=== PATIENT | male | born 1970 | race Caucasian/White ===

== ENCOUNTER 2018-12-05 19:19 | Inpatient (IN) ==
[2018-12-05] MEDS ORDERED: LORazepam 1 MG/2 ML VIAL IV STA (19:57)
[2018-12-05] MEDS ORDERED: MULTI-VITAMIN INFUSION 10 ML, THIAMINE HCL 100 MG, FOLIC ACID 1 MG in SODIUM CHLORIDE 0... IV SCH (20:00)
--- NOTE | 2018-12-05 20:27 | XRay Report ---
XR chest 1V portable CLINICAL HISTORY: 48 years-old Male presenting with weakness. TECHNIQUE: Portable upright AP view of the chest was obtained. COMPARISON: 11/29/2010. FINDINGS: Cardiomediastinal silhouette normal. No focal opacity. No large effusion or pneumothorax. Osseous str uctures normal. Upper abdomen normal. IMPRESSION: 1. No acute cardiopulmonary disease. Electronically signed by: Kyle Marte M.D. 12/05/2018 8:26 PM
[2018-12-05 20:28] LABS: Prothrombin Time 10.3 Seconds (9.0-12.0)
[2018-12-05 20:34] LABS: Hematocrit (blood only) 43.3 % (42-52); Hemoglobin 15.5 g/dL (14.0-18.0); Immature Granulocytes # (auto) 0.03 K/uL (0.00-0.02); Immature Granulocytes % (auto) 0.5 %; Lymphocytes # (auto) 0.16 K/uL (1.2-3.4); Lymphocytes % (auto) 2.8 %; Mean Corpuscular Hemoglobin 37.3 pg (25-34); Mean Corpuscular Hgb Conc 35.8 g/dL (32-36); Mean Corpuscular Volume 104.1 fL (80-100); Mean Platelet Volume 9.4 fL (7.4-10.4); Monocytes # (auto) 0.51 K/uL (0.11-0.59); Neutrophils # (auto) 4.97 K/uL (1.4-6.5); Neutrophils % (auto) 87.7 %; Platelet Count 137 K/uL (130-400); RDW Coefficient of Variation 13.1 % (11.5-14.5); RDW Standard Deviation 49.8 fL (36.4-46.3); Red Blood Count 4.16 M/uL (4.7-6.1); White Blood Count 5.67 K/uL (4.8-10.8)
[2018-12-05 20:38] LABS: Alanine Aminotransferase 70 U/L (12-78); Aspartate Aminotransferase 69 U/L (15-37); BUN Creatinine Ratio 18.7 (10-20); Blood Urea Nitrogen 18 mg/dl (7-18); Calcium 8.4 mg/dl (8.5-10.1); Carbon Dioxide 11 mmol/L (21-32); Chloride 92 mmol/L (98-107); Est GFR (African American) 109.9; Est GFR (Non-African American) 94.8; Glucose 188 mg/dl (70-99); Magnesium 2.1 mg/dl (1.8-2.4); Potassium 4.2 mmol/L (3.5-5.1); Sodium 127 mmol/L (136-145)
[2018-12-05 20:48] LABS: Albumin Globulin Ratio 0.9 (0.9-2); Alkaline Phosphatase 65 U/L (45-117); Bilirubin,Total 0.6 mg/dl (0.2-1); Creatine Kinase 200 U/L (39-308); Globulin 4.6 gm/dl (2.5-4.0); Thyroid Stimulating Hormone 0.397 uIu/ml (0.300-4.500); Total Protein 8.6 gm/dl (6.4-8.2); Troponin I < 0.015 ng/ml (0-0.045)
[2018-12-05] MEDS ORDERED: MoRPHine SULFATE 2 MG/ML CARP IV STA (21:20)
[2018-12-05] MEDS ORDERED: D5W AND NSS 1,000 ML IV SCH (21:30)
--- NOTE | 2018-12-05 21:34 | Emergency Department Note ---
Entered by Briseyda Hunter acting as a scribe for Christiano Rojo DO History of Present Illness General Chief complaint: Chest Pain Stated complaint: CHEST PAIN, SOB, LEGS AREN'T WORKING, HICCUPS Time Seen by Provider: 12/05/18 19:50 Source: patient History of Present Illness Onset (ago): day(s) 3 Location: chest Pain Consistency: + other (Worsening) Maximum Pain Intensity: 7 Quality: + other (Pressure) Associated symptoms: + chest pain, + loss of appetite, + shortness of breath and + other (Off balance, hiccups, alcoholic); no nausea/vomiting The patient is a 48 year old male presenting to the Emergency Department complaining of worsening chest pain starting 3 days ago. The patient reports that he has chest pain and is short of breath. He describes his pain as pressure in his chest. He explains that he is experiencing acid reflux and has the hiccups. He notes that his legs arent functioning properly and that he is off balance. He adds that he has not eaten for the past 4 days and has lost his appetite. The patient reports that he is a chronic alcoholic. He states that he last drank about of a bottle of vodka [employer]. He explains that he lost his job 5 days ago and has been drinking in a motel ever since. He notes that he sees Dr. Dominguez [facility] PCP. He denies nausea and vomiting. Home Medications Home Medications Medication Instructions Recorded Confirmed Type ibuprofen 800 mg PO Q8H PRN 01/05/18 12/05/18 History Allergies Allergy/AdvReac Type Severity Reaction Status Date / Time No Known Allergies Allergy Verified 12/05/18 20:20 Past Med/Surg History Medical History Chronic alcohol use Family History Other Family history non-contributory Social History Preferred Language: Singaporean Feels Safe at Home: Yes Smoking Status: Current every day smoker Review of Systems See HPI for pertinent positives & negatives. and A total of 10 systems reviewed and were otherwise negative Physical Exam Vital Signs Vital Signs - 24 hr 12/05/18 19:21 12/05/18 19:39 12/05/18 20:01 Temperature 36.8 C Temperature Source Oral Sepsis Recent Fever Within 48 Hours No Sepsis New/Unexplained Change in Mental Status No Sepsis Action Taken by Nursing No Action Required Pulse Rate 129 H 129 H Pulse Rate from SpO2 Sensor Pulse Rhythm Regular Respiratory Rate 20 20 Blood Pressure 141/88 H Blood Pressure Mean 105 Pulse Oximetry 97 97 Oxygen Delivery Method Room Air Room Air Room Air 12/05/18 20:13 12/05/18 20:30 12/05/18 21:00 Temperature Temperature Source Sepsis Recent Fever Within 48 Hours Sepsis New/Unexplained Change in Mental Status Sepsis Action Taken by Nursing Pulse Rate 115 H 118 H 122 H Pulse Rate from SpO2 Sensor 115 H 118 H 121 H Pulse Rhythm Respiratory Rate 26 H 23 19 Blood Pressure 146/108 H 169/107 H 145/102 H Blood Pressure Mean 120 127 116 Pulse Oximetry 100 100 99 Oxygen Delivery Method Room Air Room Air Room Air CONSTITUTIONAL/VITAL SIGNS: Reviewed / noted above. GENERAL: Smells of ketones. INTEGUMENTARY: Warm, dry, and [place]. HEAD: Normocephalic. EYES: without scleral icterus or trauma. ENT/OROPHARYNX: clear and moist. LYMPHADENOPATHY/NECK: Is supple without lymphadenopathy or meningismus. RESPIRATORY: Lungs clear and equal. CARDIOVASCULAR: Tachycardia rate and regular rhythm. GI/ABDOMEN: Soft and nontender. No organomegaly or pulsatile mass. No rebound or guarding. Normal bowel sounds. EXTREMITIES: Warm and well perfused. BACK: No CVA tenderness. NEUROLOGICAL: Intact without focal deficits. PSYCHIATRIC: normal affect. MUSCULOSKELETAL: Normally developed with good muscle tone. Course 1950: The patient was evaluated in room [facility], and a complete history and physical examination were performed. 2121: I discussed the patient's case with Dr. Andrew LEMUS hospitalist. She will evaluate the patient for further management. 2124: I updated the patient at this time. Consultations Consultation #1: I discussed the patient's case with Dr. Andrew LEMUS hospitalist. She will evaluate the patient for further management. Time: 21:22 Administered Medications Discontinued Medications Lorazepam (Ativan) 1 mg in 2 mls @ 2 mls/min IV NOW STA Stop: 12/05/18 19:58 Last Admin: 12/05/18 20:31 Dose: 2 mls/min Documented by: [id number] Multivitamins 10 ml/ Thiamine HCl 100 mg/ Folic Acid 1 mg/Sodium Chloride 1,011.2 mls @ 1,011.2 mls/hr IV .Q1H SAMMY Stop: 12/05/18 20:59 Last Infusion: 12/05/18 21:18 Dose: 0 mls/hr Documented by: [id number] Admin: 12/05/18 20:17 Dose: 1,011.2 mls/hr Documented by: [id number] Medical Decision Making Differential Diagnosis The differential was considered includes acute myocardial infarction, acute coronary syndrome, myocarditis, pericarditis, pericardial effusions /tamponad, esophageal perforation, thoracic aortic dissection, pulmonary embolism, pneumonia, pneumothorax, pancreatitis, shingles, acute cholecystitis, perforated abdominal viscus. Medical Records Attestation: I reviewed the patient's medical records. Home Medications Current Medication List: was personally reviewed by me Laboratory Data Attestation: I reviewed the patient's lab results. Result diagrams: 12/05/18 20:12 12/05/18 20:12 Lab Results 12/05/18 12/05/18 12/05/18 Range/Units 19:34 20:12 20:12 WBC (4.8-10.8) K/uL RBC (4.7-6.1) M/uL Hgb (14.0-18.0) g/dL Hct (42-52) % MCV (80-100) fL MCH (25-34) pg MCHC (32-36) g/dL RDW Std Deviation (36.4-46.3) fL RDW Coeff of Arturo (11.5-14.5) % Plt Count (130-400) K/uL MPV (7.4-10.4) fL Immature Gran % (Auto) % Neut % (Auto) % Lymph % (Auto) % Hall % (Auto) % Eos % (Auto) % Baso % (Auto) % Immature Gran # (Auto) (0.00-0.02) K/uL Neut # (Auto) (1.4-6.5) K/uL Lymph # (Auto) (1.2-3.4) K/uL [place] # (Auto) (0.11-0.59) K/uL Eos # (Auto) (0-0.5) K/uL Baso # (Auto) (0-0.2) K/uL PT 10.3 (9.0-12.0) Seconds INR 1.0 (0.9-1.1) Sodium (136-145) mmol/L Potassium (3.5-5.1) mmol/L Chloride (98-107) mmol/L Carbon Dioxide (21-32) mmol/L Anion Gap (3-11) BUN (7-18) mg/dl Creatinine (0.6-1.4) mg/dl Est Cr Clr Drug Dosing Est GFR ( Amer) Est GFR (Non-Af Amer) BUN/Creatinine Ratio (10-20) Glucose (70-99) mg/dl POC Glucose 201 H (70-99) Lactate 4.5 H* (0.4-2.0) mmol/L Calcium (8.5-10.1) mg/dl Phosphorus (2.5-4.9) mg/dl Magnesium (1.8-2.4) mg/dl Total Bilirubin (0.2-1) mg/dl AST (15-37) U/L ALT (12-78) U/L Alkaline Phosphatase (45-117) U/L Total Creatine Kinase (39-308) U/L Troponin I (0-0.045) ng/ml Total Protein (6.4-8.2) gm/dl Albumin (3.4-5.0) gm/dl Globulin (2.5-4.0) gm/dl Albumin/Globulin Ratio (0.9-2) TSH (0.300-4.500) uIu/ml 12/05/18 12/05/18 Range/Units 20:12 20:12 WBC 5.67 (4.8-10.8) K/uL RBC 4.16 L (4.7-6.1) M/uL Hgb 15.5 (14.0-18.0) g/dL Hct 43.3 (42-52) % MCV 104.1 H (80-100) fL MCH 37.3 H (25-34) pg MCHC 35.8 (32-36) g/dL RDW Std Deviation 49.8 H (36.4-46.3) fL RDW Coeff of Arturo 13.1 (11.5-14.5) % Plt Count 137 (130-400) K/uL MPV 9.4 (7.4-10.4) fL Immature Gran % (Auto) 0.5 % Neut % (Auto) 87.7 % Lymph % (Auto) 2.8 % [place] % (Auto) 9.0 % Eos % (Auto) 0.0 % Baso % (Auto) 0.0 % Immature Gran # (Auto) 0.03 H (0.00-0.02) K/uL Neut # (Auto) 4.97 (1.4-6.5) K/uL Lymph # (Auto) 0.16 L (1.2-3.4) K/uL [place] # (Auto) 0.51 (0.11-0.59) K/uL Eos # (Auto) 0.00 (0-0.5) K/uL Baso # (Auto) 0.00 (0-0.2) K/uL PT (9.0-12.0) Seconds INR (0.9-1.1) Sodium 127 L (136-145) mmol/L Potassium 4.2 (3.5-5.1) mmol/L Chloride 92 L (98-107) mmol/L Carbon Dioxide 11 L (21-32) mmol/L Anion Gap 24.0 H (3-11) BUN 18 (7-18) mg/dl Creatinine 0.94 (0.6-1.4) mg/dl Est Cr Clr Drug Dosing Not Reportable Est GFR ( Amer) 109.9 Est GFR (Non-Af Amer) 94.8 BUN/Creatinine Ratio 18.7 (10-20) Glucose 188 H (70-99) mg/dl POC Glucose (70-99) Lactate (0.4-2.0) mmol/L Calcium 8.4 L (8.5-10.1) mg/dl Phosphorus 2.0 L (2.5-4.9) mg/dl Magnesium 2.1 (1.8-2.4) mg/dl Total Bilirubin 0.6 (0.2-1) mg/dl AST 69 H (15-37) U/L ALT 70 (12-78) U/L Alkaline Phosphatase 65 (45-117) U/L Total Creatine Kinase 200 (39-308) U/L Troponin I < 0.015 (0-0.045) ng/ml Total Protein 8.6 H (6.4-8.2) gm/dl Albumin 4.0 (3.4-5.0) gm/dl Globulin 4.6 H (2.5-4.0) gm/dl Albumin/Globulin Ratio 0.9 (0.9-2) TSH 0.397 (0.300-4.500) uIu/ml Imaging Data Radiologist's Impression: Radiology results as stated below per my review and the radiologist's interpretation: XR chest 1V portable CLINICAL HISTORY: 48 years-old Male presenting with weakness. TECHNIQUE: Portable upright AP view of the chest was obtained. COMPARISON: 11/29/2010. FINDINGS: Cardiomediastinal silhouette normal. No focal opacity. No large effusion or pneumothorax. Osseous structures normal. Upper abdomen normal. IMPRESSION: 1. No acute cardiopulmonary disease. Electronically signed by: Kyle Marte M.D. 12/05/2018 8:26 PM ECG Data Attestation: I personally reviewed and interpreted this ECG as follows: Indication: chest pain Rate (beats per minute): 120 Rhythm: sinus tachycardia Findings: no ST elevation and no ectopy Blood Pressure Blood Pressure Findings: Elevated blood pressure Blood Pressure Disposition: further management by hospitalist [id number] Narrative This is a 48-year-old male who presents to the ED with a chief complaint of carmen rtness of breath and hiccups as well as weakness in his legs. He also states that he has not been eating for the past 3 to 4 days. He has this been drinking alcohol. He states that he lost his job on Sunday. His last alcoholic beverage was vodka about a fourth of a bottle this afternoon. The patient states that he is a chronic alcoholic. His physical exam reveals a smell of ketones about the patient. He also has tachycardia on my exam. Chest x-ray was clear. CBC is unremarkable. The sodium is 127, anion gap is 24. Glucose is 188. Lactic acid is 4.5. Troponin was negative. Phosphorus is 2.0. EKG shows a sinus tach at a rate of 120. His symptoms are consistent with alcoholic ketoacidosis. The patient was treated with a banana bag 1 L with thiamine and folate IV. He was also started on D5 normal saline at 80 cc/h. I spoke with the hospitalist, who will see the patient for further evaluation and care. Impression & Plan Alcoholic ketoacidosis, Hyponatremia, Hypophosphatemia, Lactic acidosis Discharge Plan Visit Data Chief Complaint: Chest Pain Stated Complaint: CHEST PAIN, SOB, LEGS AREN'T WORKING, HICCUPS ED Provider: Christiano Rojo Discharge Problem: Alcoholic ketoacidosis, Hyponatremia, Hypophosphatemia, Lactic acidosis Patient Disposition: Being Evaluated by Hospitalist Forms Stand Alone Forms: Call Back Authorization, My [facility] Prescriptions Prescriptions: No Action ibuprofen 200 mg Tablet 800 mg PO Q8H PRN (Reason: Pain) RF: 0 Referrals Referrals: Barry Camacho [Primary Care Provider] - The scribe's documentation has been prepared under my direction and personally reviewed by me in its entirety. I confirm that the note above accurately reflects all work, treatment, procedures, and medical decision making performed by me.
--- NOTE | 2018-12-05 22:40 | History & Physical Report ---
Date of Service December 05, 2018 Assessment & Plan (1) Alcoholic ketoacidosis: Patient with anion gap metabolic acidosis. Serum bicarb = 11, lactate = 4.5. Blood pressure is stable. Patient does not appear to be infected/septic. Most likely secondary to alcohol ketoacidosis. -Admit to PCU -Banana bag administered in ER. Will continue IV fluid hydration with normal saline solution -Repeat lactate at midnight to assess trend -Encourage alcohol cessation Present on Admission?: Yes (2) Hyponatremia: Patient with moderate hyponatremia. Sodium = 127. Chloride = 92. Most likely secondary to low solute intake as patient reports not eating and drinking heavy amount of alcohol. -Check serum and urine osmolality -Normal saline solution at 125 mL/h -BMP every 8 hours. Cautious correction of sodium. Goal correction of no more than 10 mmol/L over 24 hours to avoid osmotic demyelination. Present on Admission?: Yes (3) Hypophosphatemia: Most likely secondary to low solute intake -Potassium phosphate 15 mmol IV x1 -Repeat phosphorus level in the morning Present on Admission?: Yes (4) Chronic alcohol use: Patient with long-standing history of heavy alcohol use. History of seizures and withdrawal. Presently with alcohol level of 243.8 with last drink being earlier this evening. He is at high risk for withdrawal -Admit to PCU with CIWA protocol -Seizure precautions -Gabapentin per protocol -Daily folic acid and high-dose thiamine, see below Present on Admission?: Yes (5) Left leg weakness: Patient with complaint of gait disturbance, specifically left weakness of the left lower extremity. He has had this in the past associated with heavy alcohol use. 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 Wernicke-Korsakoff? Patient with no ocular complaints or nystagmus. -Will administer high-dose thiamine 500 mg IV 3 times daily -PT and OT assessment -Obtain records from neurology -If symptoms do not improve with thiamine would consider MRI of the L-spine, possible neuro consult Present on Admission?: Yes (6) Hyperglycemia: Glucose = 188. Patient with no prior history of diabetes -Check hemoglobin A1c with a.m. labs f/E/N -normal saline solution at 125 mL/h, BMP every 8 hours to assess sodium and anion gap metabolic acidosis, regular diet as tolerated Prophylaxis-Lovenox for DVT. Will initiate Protonix 40 mg p.o. daily for complaint of heartburn Code-full per discussion with patient Disposition-admission to PCU Present on Admission?: Yes History of Present Illness Chief Complaint: Alcohol abuse, ataxia, weakness Primary Care Provider: Barry Camacho Uday Eastman is a 48-year-old male with history of alcohol abuse, possible hypertension presenting with difficulty walking, diffuse weakness. Patient is a heavy drinker. Reports drinking approximately one half bottle of vodka per day. He occasionally drinks beer instead, 4 per night. He drinks daily. Last drink was this evening-one quarter bottle of vodka. He has had history of alcohol withdrawal and seizures. He recognizes that he is an alcoholic. He has been to detox and inpatient rehab a number of times last of which was January 2018. He is also been involved with AA in the past. Patient states that he lost his job approximately 1 week ago. Since then he is drinking heavier than usual. He complains of gait instability, decreased strength in his legs left more so than right, numbness and difficulty walking. He has fallen a couple of times last being approximately 1 week ago. He denies head trauma or loss of consciousness. He states that this is happened in the past. He was seen by neurology and was told the ataxia was secondary to his alcohol consumption. He was instructed to decrease alcohol intake. Patient also complaining of dyspnea on exertion and postural changes. He has a headache, 6 out of 10 over his left eye since being in the hospital. Denies photo/phonophobia or nausea. He also complains of heartburn symptoms. ER course: Banana bag, Ativan, morphine Allergies Allergy/AdvReac Type Severity Reaction Status Date / Time No Known Allergies Allergy Verified 12/05/18 20:20 Home Medications Home Medications Medication Instructions Recorded Confirmed Type ibuprofen 800 mg PO Q8H PRN 01/05/18 12/05/18 History Past Med/Surg History Medical History Chronic alcohol use Hypertension Surgical History No pertinent past surgical history Family History Other Adopted Family history non-contributory Social History Preferred Language: Ugandan Feels Safe at Home: Yes Smoking Status: Current every day smoker Hx Alcohol Use: Yes Hx Substance Use: No Review of Systems Review of Systems: All systems reviewed & are unremarkable except as noted in HPI & below Patient complaining of headache as described above Patient complaining of poor appetite, decreased p.o. intake, decrease in bowel movement Patient complaining of hiccups Physical Exam Physical Exam: General: patient resting comfortably, NAD, non-toxic in appearance, AA&O x 4 Skin: warm, dry, intact, no rashes or lesions HEENT: NC/AT, PERRL, no nystagmus, EOMI, anicteric sclera, conjunctiva without injection, external ear normal to inspection and nontender, nares patent, moist mucus membranes, dentition intact, no oropharyngeal lesions, neck supple, trachea midline, no LAD, no thyromegaly, no JVD Heart: +S1/S2, regular, tachycardic, no m/r/g Lungs: equal air entry bilaterally, no rales/rhonchi/wheezes Abd: +BS, soft, NT/ND, no masses/organomegaly/ascites Ext: warm, 2+ pulses in UE/LE bilaterally, no clubbing/cyanosis or edema Neuro: nonfocal, patient AA&O x 4, speech intact, no facial droop, moving all extremities on command, decreased strength in dorsiflexion of left foot, decreased strength in flexion extension of the left leg Results & Data Vital Signs (Past 12 Hours) Vital Signs Temp Pulse Resp BP Pulse Ox 12/05/18 21:00 122 H 19 145/102 H 99 12/05/18 20:30 118 H 23 169/107 H 100 12/05/18 20:13 115 H 26 H 146/108 H 100 12/05/18 20:01 129 H 20 97 12/05/18 19:21 36.8 C 129 H 20 141/88 H 97 Laboratory Results Lab Results 12/05/18 12/05/18 12/05/18 Range/Units 19:34 20:12 20:12 WBC (4.8-10.8) K/uL RBC (4.7-6.1) M/uL Hgb (14.0-18.0) g/dL Hct (42-52) % MCV (80-100) fL MCH (25-34) pg MCHC (32-36) g/dL RDW Std Deviation (36.4-46.3) fL RDW Coeff of Arturo (11.5-14.5) % Plt Count (130-400) K/uL MPV (7.4-10.4) fL Immature Gran % (Auto) % Neut % (Auto) % Lymph % (Auto) % [place] % (Auto) % Eos % (Auto) % Baso % (Auto) % Immature Gran # (Auto) (0.00-0.02) K/uL Neut # (Auto) (1.4-6.5) K/uL Lymph # (Auto) (1.2-3.4) K/uL [place] # (Auto) (0.11-0.59) K/uL Eos # (Auto) (0-0.5) K/uL Baso # (Auto) (0-0.2) K/uL PT 10.3 (9.0-12.0) Seconds INR 1.0 (0.9-1.1) Sodium (136-145) mmol/L Potassium (3.5-5.1) mmol/L Chloride (98-107) mmol/L Carbon Dioxide (21-32) mmol/L Anion Gap (3-11) BUN (7-18) mg/dl Creatinine (0.6-1.4) mg/dl Est Cr Clr Drug Dosing Est GFR ( Amer) Est GFR (Non-Af Amer) BUN/Creatinine Ratio (10-20) Glucose (70-99) mg/dl POC Glucose 201 H (70-99) Lactate 4.5 H* (0.4-2.0) mmol/L Calcium (8.5-10.1) mg/dl Phosphorus (2.5-4.9) mg/dl Magnesium (1.8-2.4) mg/dl Total Bilirubin (0.2-1) mg/dl AST (15-37) U/L ALT (12-78) U/L Alkaline Phosphatase (45-117) U/L Total Creatine Kinase (39-308) U/L Troponin I (0-0.045) ng/ml Total Protein (6.4-8.2) gm/dl Albumin (3.4-5.0) gm/dl Globulin (2.5-4.0) gm/dl Albumin/Globulin Ratio (0.9-2) TSH (0.300-4.500) uIu/ml Ethyl Alcohol mg/dL (0-3) mg/dl 12/05/18 12/05/18 12/05/18 Range/Units 20:12 20:12 21:35 WBC 5.67 (4.8-10.8) K/uL RBC 4.16 L (4.7-6.1) M/uL Hgb 15.5 (14.0-18.0) g/dL Hct 43.3 (42-52) % MCV 104.1 H (80-100) fL MCH 37.3 H (25-34) pg MCHC 35.8 (32-36) g/dL RDW Std Deviation 49.8 H (36.4-46.3) fL RDW Coeff of Arturo 13.1 (11.5-14.5) % Plt Count 137 (130-400) K/uL MPV 9.4 (7.4-10.4) fL Immature Gran % (Auto) 0.5 % Neut % (Auto) 87.7 % Lymph % (Auto) 2.8 % [place] % (Auto) 9.0 % Eos % (Auto) 0.0 % Baso % (Auto) 0.0 % Immature Gran # (Auto) 0.03 H (0.00-0.02) K/uL Neut # (Auto) 4.97 (1.4-6.5) K/uL Lymph # (Auto) 0.16 L (1.2-3.4) K/uL [place] # (Auto) 0.51 (0.11-0.59) K/uL Eos # (Auto) 0.00 (0-0.5) K/uL Baso # (Auto) 0.00 (0-0.2) K/uL PT (9.0-12.0) Seconds INR (0.9-1.1) Sodium 127 L (136-145) mmol/L Potassium 4.2 (3.5-5.1) mmol/L Chloride 92 L (98-107) mmol/L Carbon Dioxide 11 L (21-32) mmol/L Anion Gap 24.0 H (3-11) BUN 18 (7-18) mg/dl Creatinine 0.94 (0.6-1.4) mg/dl Est Cr Clr Drug Dosing Not Reportable Est GFR ( Amer) 109.9 Est GFR (Non-Af Amer) 94.8 BUN/Creatinine Ratio 18.7 (10-20) Glucose 188 H (70-99) mg/dl POC Glucose (70-99) Lactate (0.4-2.0) mmol/L Calcium 8.4 L (8.5-10.1) mg/dl Phosphorus 2.0 L (2.5-4.9) mg/dl Magnesium 2.1 (1.8-2.4) mg/dl Total Bilirubin 0.6 (0.2-1) mg/dl AST 69 H (15-37) U/L ALT 70 (12-78) U/L Alkaline Phosphatase 65 (45-117) U/L Total Creatine Kinase 200 (39-308) U/L Troponin I < 0.015 (0-0.045) ng/ml Total Protein 8.6 H (6.4-8.2) gm/dl Albumin 4.0 (3.4-5.0) gm/dl Globulin 4.6 H (2.5-4.0) gm/dl Albumin/Globulin Ratio 0.9 (0.9-2) TSH 0.397 (0.300-4.500) uIu/ml Ethyl Alcohol mg/dL 243.8 H (0-3) mg/dl Diagnostic Findings XR chest 1V portable CLINICAL HISTORY: 48 years-old Male presenting with weakness. TECHNIQUE: Portable upright AP view of the chest was obtained. COMPARISON: 11/29/2010. FINDINGS: Cardiomediastinal silhouette normal. No focal opacity. No large effusion or pneumothorax. Osseous structures normal. Upper abdomen normal. IMPRESSION: 1. No acute cardiopulmonary disease. Electronically signed by: Kyle Marte M.D. 12/05/2018 8:26 PM Dictated: 12/05/182024 Transcribed: 12/05/182024 ECG Additional Comments: Study shows sinus tachycardia at 120 bpm, leftward axis, ND = 140, QRS = 94, QTc = 491. Flattened T waves present in 1, aVL, V1 and V2 Code Status & VTE Plan Code Status Full code VTE Prophylaxis Plan VTE Prophylaxis will be ordered: Yes PG Care Time/CCT Total # of Minutes Spent Total Time Spent with Patient: Total time spent is greater than 50% in coordination of care (as documented) at patient's floor/unit and/or counseling patient:
[2018-12-05] MEDS ORDERED: POTASSIUM PHOS 3 MMOL/1 ML INFUSION IV STA (23:53)
[2018-12-05] MEDS ORDERED: GABAPENTIN 1200MG ALCOHOL WITHDRAWAL LOAD PO STA (23:53)
[2018-12-05] MEDS ORDERED: LORazepam 1 MG/2 ML VIAL IV PRN (23:53)
[2018-12-05] MEDS ORDERED: LORazepam 2 MG/4 ML VIAL IV STA (23:56)
[2018-12-06] MEDS ORDERED: GABAPENTIN 600 MG TAB PO ONE
[2018-12-06] MEDS: SODIUM CHLORIDE 0.9% 1000ML 1,000 ML IV SCH ×2 (00:08→11:20)
[2018-12-06] MEDS ORDERED: POTASSIUM PHOSPHATE 15 MMOL in SODIUM CHLORIDE 0.9% 250 ML IV ONE (00:15)
[2018-12-06] MEDS: PATIENT'S HEIGHT AND/OR WEIGHT NEEDED SCH ×6 (00:22→19:18)
[2018-12-06 01:01] LABS: Calcium 7.6 mg/dl (8.5-10.1); Creatinine Clr Calc Pharmacy 107.3 ml/min; Est GFR (Non-African American) 101.8; Potassium 4.1 mmol/L (3.5-5.1)
[2018-12-06 03:17] LABS: Appearance Urine Clear (Clear); Bacteria Urine Automated Negative (Negative); Bilirubin Urine Negative (Negative); Blood Urine 2+ (Negative); Color Urine Yellow; Glucose Urine UA Trace (Negative); Leukocyte Esterase Urine Negative (Negative); Nitrite Urine Negative (Negative); Protein Urine 2+ (Negative); RBC Urine Automated 0-4 /hpf (0-4); Specific Gravity Urine 1.019 (1.000-1.030); Urobilinogen Urine Negative (Negative); pH Urine 5.5 (4.5-7.5)
[2018-12-06 03:20] LABS: Ketones Urine 3+ (Negative)
[2018-12-06] MEDS: GABAPENTIN 600 MG TAB PO SCH ×3 (06:15→20:42)
[2018-12-06] MEDS: THIAMINE HCL IV SCH ×3 (06:15→22:06)
[2018-12-06] MEDS: DEXTROSE 5% IV SCH ×3 (06:15→22:06)
[2018-12-06] MEDS: FOLIC ACID 1 MG in SYRINGE 9.8 ML IV SCH (08:20)
[2018-12-06] MEDS: ENOXAPARIN INJ 40 MG/0.4 ML SYR SQ SCH (08:21)
[2018-12-06] MEDS: PANTOprazole 40 MG TAB PO SCH (08:21)
[2018-12-06] MEDS: ATIVAN IV ALCOHOL WITHDRAWL IV PRN ×2 (08:28→16:11)
[2018-12-06 08:34] LABS: BUN Creatinine Ratio 24.9 (10-20); Calcium 7.8 mg/dl (8.5-10.1); Creatinine Clr Calc Pharmacy 128.1 ml/min; Est GFR (Non-African American) 109.5; Potassium 3.6 mmol/L (3.5-5.1)
[2018-12-06 08:39] LABS: Estimated Average Glucose 108 mg/dl; Hemoglobin A1C 5.4 % (4.5-5.6)
[2018-12-06 08:48] LABS: Albumin Level 3.2 gm/dl (3.4-5.0); BUN Creatinine Ratio 23.8 (10-20); Bilirubin Direct 0.2 mg/dl (0-0.2); Calcium 7.8 mg/dl (8.5-10.1); Creatinine Clr Calc Pharmacy 124.7 ml/min; Est GFR (African American) 125.5; Est GFR (Non-African American) 108.3; Potassium 3.6 mmol/L (3.5-5.1)
[2018-12-06 09:04] LABS: Bilirubin,Total 0.6 mg/dl (0.2-1); Globulin 3.2 gm/dl (2.5-4.0); Phosphorus 0.6 mg/dl (2.5-4.9); Total Protein 6.4 gm/dl (6.4-8.2)
[2018-12-06] MEDS ORDERED: POTASSIUM PHOS 3 MMOL/1 ML INFUSION IV STA (09:06)
[2018-12-06] MEDS ORDERED: POTASSIUM PHOSPHATE 21 MMOL in SODIUM CHLORIDE 0.9% 500 ML IV ONE (09:30)
[2018-12-06] MEDS ORDERED: GADOBUTROL 65ML VIAL IV PRN (11:06)
--- NOTE | 2018-12-06 11:08 | Magnetic Resonance Report ---
MR lumbar spine wo con HISTORY: Pain. Neuropathy. LLE weakness, h/o lumbar radiculopathy, worsening TECHNIQUE: Multiplanar multisequence MRI of the lumbar spine was performed without the use of contras t. COMPARISON: None. FINDINGS: For the purpose of the report the L5-S1 disc space will be located on axial image 23 of 25. Normal signal characteristics of the vertebral bodies. Minimal grade 1 anterolisthesis of L4 on L5. S agittal images suggest posterior disc herniations at L4-L5 and L5-S1. L1-L2: No significant central canal or neural foraminal narrowing. L2-L3: Minimal broad-based disc bulge. Minimal impact anterior thecal sac. L3-L4: No significant central canal or neural foraminal narrowing. L4-L5: Significant multifactorial narrowing of the spinal canal. Severe compromise of the right and t o a lesser extent left neural foramina. Broad-based disc herniation with findings accentuated by grad e 1 anterolisthesis. L5-S1: Right central disc herniation. Moderate impact anterior aspect of thecal sac. Significant narr owing of the right and to a lesser extent left neural foramina. IMPRESSION: 1. Severe multifactorial spinal stenosis L4-L5. 2. This is also associated with considerable narrowing of the right to lesser extent left foramina. 3. Broad-based right central disc herniation L5-S1 with moderate impact upon the anterior thecal sac as well as significant narrowing of the right and to a lesser extent left neural foramina. The above report was generated using voice recognition software. It may contain grammatical, syntax or spelling errors. Electronically signed by: Kam Agarwal M.D. 12/06/2018 11:06 AM
--- NOTE | 2018-12-06 11:12 | Magnetic Resonance Report ---
MR brain wo/w con CLINICAL HISTORY: LLE weakness,h/o cerebellar ataxia COMPARISON STUDY: 03/26/2018 TECHNIQUE: Utilizing a 1.5 Nellie magnet and dedicated coil, multiplanar, multiecho imaging of the br ain was performed pre and postcontrast administration. IV administration of 8.5 mL of Gadavist contr ast was uneventful. FINDINGS: Diffusion-weighted images are unremarkable. Signal characteristics of the cerebellar as wel l as cerebral hemispheres are within normal limits. The ventricular system is midline. Postcontrast images are considered negative for enhancing lesion. IMPRESSION: Negative study of the brain. No change from the prior exam. The above report was generated using voice recognition software. It may contain grammatical, syntax or spelling errors. Electronically signed by: Kam Agarwal M.D. 12/06/2018 11:11 AM
[2018-12-06] MEDS: POT PHOSPHATE MONOBASIC W/ SOD TAB PO SCH ×3 (12:33→20:42)
--- NOTE | 2018-12-06 13:55 | Hospitalist Progress Note ---
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 Serum bicarb = 11, lactate = 4.5 on admission, now improving Blood pressure is stable. Patient does not appear to be infected/septic. Most likely secondary to alcohol ketoacidosis. -- continue IV fluid hydration with normal saline solution -Encourage alcohol cessation -replace lytes -follow BMP (6) Hyponatremia: Patient with moderate hyponatremia. Sodium = 127. Chloride = 92 on admission, now improving. Most likely secondary to low solute intake as patient reports not eating and drinking heavy amount of alcohol. -Normal saline solution at 125 mL/h -continue to follow BMP (7) Left leg weakness: L-spine MRI as above MRI brain no stroke Ortho SPine and Neuro consults appreciated (8) Hypophosphatemia: Most likely secondary to low solute intake, severe -continue IV and po replacement started -Repeat phosphorus level in the morning (9) Chronic alcohol use: Patient with long-standing history of heavy alcohol use. History of seizures and withdrawal. Presently with alcohol level of 243.8 on admission. He is at high risk for withdrawal - [facility] protocol -Seizure precautions -Gabapentin per protocol -Daily folic acid and high-dose thiamine (10) Hyperglycemia: Glucose = 188. Patient with no prior history of diabetes hemoglobin A1c only 5.4% (11) DVT prophylaxis: Prophylaxis-Lovenox for DVT. Will initiate Protonix 40 mg p.o. daily for complaint of heartburn Code-full per discussion with patient Disposition-continued stay on PCU Subjective Pt feels very drowsy, still with ST on tele. Denies CP or SOB. Has numbness and tingling in bilat legs, +LBP, and no pain down legs Feels weak in left leg and foot for the last 3 days. Denies bowel or bladder issues. Reviewed MRI results with him Discussed case with Neuro and Ortho Spine He is interested in quitting EtOH Review of Systems Review of Systems: All systems reviewed & are unremarkable except as noted in HPI & below Physical Exam Constitutional: WD/WN, vitals as above Eyes: PERRL, conjunctivae normal, anicteric sclerae ENMT: external ear and nose normal, oropharynx normal Neck: trachea midline, no thyromegaly Respiratory: normal respiratory effort, lungs clear to auscultation Cardiovascular: Rate/Rhythm: regular rhythm and + tachycardic Heart Sounds: no murmur Extremities: no edema Gastrointestinal (Abdomen): normal bowel sounds, soft, nontender, no hepatosplenomegaly Musculoskeletal: Extremities: extremities normal to inspection; no cyanosis and no clubbing Skin: no rashes, warm and dry Neurologic: CN's II-XI intact bilaterally, deep tendon reflexes 2+ bilaterally, + focal motor deficit (Left foot drop,2/5 left great toe dorsiflexion,otherwise 5/5 strength) and awake Speech / Cognition: normal speech Motor/Sensory: no pronator drift and no sensory deficit Coordina tion: + abnormal [id number] test (with ataxia on left>Right hand) and + abnormal [id number]-[id number] test (on left) normal rapid alt hand Psychiatric: A+Ox3, euthymic affect Results & Data Vital Signs (Past 12 Hours) Vital Signs Temp Pulse Pulse Resp BP Pulse Ox 12/06/18 11:26 36.7 C 104 H 16 143/91 H 98 12/06/18 07:05 36.7 C 118 H 20 131/89 98 12/06/18 03:31 36.9 C 120 H 18 161/98 H 98 Laboratory Results Labs reviewed PG Care Time/CCT Total # of Minutes Spent Total Time Spent with Patient: Total time spent is greater than 50% in coordination of care (as documented) at patient's floor/unit and/or counseling patient:
[2018-12-06 16:19] LABS: BUN Creatinine Ratio 24.4 (10-20); Calcium 7.6 mg/dl (8.5-10.1); Creatinine Clr Calc Pharmacy 141.9 ml/min; Est GFR (African American) 132.4; Est GFR (Non-African American) 114.2; Potassium 3.4 mmol/L (3.5-5.1)
[2018-12-06 16:28] LABS: Phosphorus 1.2 mg/dl (2.5-4.9)
[2018-12-06] MEDS ORDERED: CALCIUM CARBONATE 500 MG CHEWABLE TAB PO PRN (19:24)
[2018-12-06] MEDS ORDERED: POTASSIUM CHLORIDE 20 MEQ TABCR PO ONE (21:00)
[2018-12-06] MEDS ORDERED: LORAZEPAM 3MG IV ACTIVE PROTOCOL IV PRN (22:00)
[2018-12-06] MEDS: NSS + 20MEQ KCL 20 MEQ/1,000 ML BAG IV SCH (22:20)
[2018-12-06] MEDS: LORAZEPAM 1MG IV ACTIVE PROTOCOL IV PRN (23:23)
[2018-12-07] MEDS: DEXTROSE 5% IV SCH ×3 (05:35→21:32)
[2018-12-07] MEDS: GABAPENTIN 600 MG TAB PO SCH ×3 (05:35→21:57)
[2018-12-07] MEDS: THIAMINE HCL IV SCH ×3 (05:35→21:32)
[2018-12-07 06:35] LABS: BUN Creatinine Ratio 23.5 (10-20); Bilirubin Direct 0.4 mg/dl (0-0.2); Calcium 7.6 mg/dl (8.5-10.1); Creatinine Clr Calc Pharmacy 192.2 ml/min; Est GFR (Non-African American) 129.4; Magnesium 1.9 mg/dl (1.8-2.4); Potassium 3.2 mmol/L (3.5-5.1)
[2018-12-07 06:41] LABS: Basophils # (auto) 0.01 K/uL (0-0.2); Basophils % (auto) 0.2 %; Eosinophils # (auto) 0.07 K/uL (0-0.5); Eosinophils % (auto) 1.3 %; Immature Granulocytes # (auto) 0.01 K/uL (0.00-0.02); Immature Granulocytes % (auto) 0.2 %; Lymphocytes # (auto) 0.91 K/uL (1.2-3.4); Lymphocytes % (auto) 17.5 %; Monocytes # (auto) 0.43 K/uL (0.11-0.59); Monocytes % (auto) 8.3 %; Neutrophils # (auto) 3.78 K/uL (1.4-6.5); Neutrophils % (auto) 72.5 %
[2018-12-07 06:50] LABS: Bilirubin,Total 0.8 mg/dl (0.2-1); Total Protein 5.9 gm/dl (6.4-8.2)
[2018-12-07] MEDS ORDERED: POTASSIUM CHLORIDE 20 MEQ TABCR PO STA (07:17)
[2018-12-07] MEDS ORDERED: POTASSIUM PHOS 3 MMOL/1 ML INFUSION IV STA (07:17)
[2018-12-07] MEDS ORDERED: POTASSIUM PHOSPHATE 21 MMOL in SODIUM CHLORIDE 0.9% 500 ML IV ONE (07:45)
[2018-12-07] MEDS ORDERED: MAGNESIUM SULFATE / D5W 1 GM/100 ML BAG IV ONE (07:45)
[2018-12-07 08:09] LABS: White Blood Count 5.21 K/uL (4.8-10.8)
[2018-12-07 08:10] LABS: Hematocrit (blood only) 30.4 % (42-52); Mean Corpuscular Volume 101.3 fL (80-100)
[2018-12-07 08:11] LABS: Mean Corpuscular Hgb Conc 35.5 g/dL (32-36); RDW Standard Deviation 47.9 fL (36.4-46.3)
[2018-12-07] MEDS: FOLIC ACID 1 MG in SYRINGE 9.8 ML IV SCH (08:11)
[2018-12-07] MEDS: NSS + 20MEQ KCL 20 MEQ/1,000 ML BAG IV SCH ×2 (08:11→17:14)
[2018-12-07 08:12] LABS: Hemoglobin 10.8 g/dL (14.0-18.0)
[2018-12-07] MEDS: POT PHOSPHATE MONOBASIC W/ SOD TAB PO SCH ×4 (08:13→21:32)
[2018-12-07] MEDS: PANTOprazole 40 MG TAB PO SCH (08:13)
[2018-12-07 08:18] LABS: Mean Platelet Volume 10.4 fL (7.4-10.4)
[2018-12-07 08:19] LABS: Platelet Count 96 K/uL (130-400)
[2018-12-07] MEDS: ENOXAPARIN INJ 40 MG/0.4 ML SYR SQ SCH (08:33)
[2018-12-07] MEDS ORDERED: PANTOprazole 80 MG in DEXTROSE 5% 100 ML IV ONE (08:45)
[2018-12-07] MEDS: ACETAMINOPHEN 325 MG TAB PO PRN ×2 (08:47→21:43)
[2018-12-07 09:04] LABS: Platelet Estimate Decreased (Normal); RBC Morphology Unremarkable
[2018-12-07] MEDS: PANTOprazole 40 MG in DEXTROSE 5% 100 ML IV SCH ×3 (09:15→19:05)
--- NOTE | 2018-12-07 09:35 | History & Physical Report ---
Date of Service December 07, 2018 History of Present Illness Chief Complaint: anemia and hemoccult + stool alcohol use Primary Care Provider: Barry Camacho 48 yo male with a history of alcohol use. GI being consulted per Dr. Nichole for anemia,? gi bleed, and alcohol use. Patient has been drinking for some time- interested in stopping. Admitted with weakness- had MRI back, ortho and neuro consulted. Labs sig for macrocytic anemia, no overtbleeding, hemoccult +. No prior scopes in [id number]. He has a flat effect. Endorses living with his father. Drinking daily. No other complaints today. 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 Hypertension Sensory polyneuropathy Surgical History No pertinent past surgical history Family History Other Adopted Family history non-contributory Social History Preferred Language: Nigerien Communication Ability: Effective Conical Mixer Required: No Beliefs That Will Affect Care: None Current Living Situation: Alone current occupational status: previously employed current occupation: 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 lost job working in an [employer] service Feels Safe at Home: Yes Smoking Status: Current every day smoker packs per day: 1 ; Hx Alcohol Use: Yes Alcohol type: beer and hard liquor Alcohol Intake Frequency Comment: 1/2 to one 5th of vodka daily, some beer Hx Substance Use: No Physical Exam Physical Exam: White male in nad, flat affect Eyes: PERRL, conjunctivae normal, anicteric sclerae Gastrointestinal (Abdomen): normal bowel sounds, soft, nontender, no hepatosplenomegaly Musculoskeletal: no cyanosis or clubbing, extremities motor strength 5/5 Skin: no rashes, warm and dry Neurologic: PERRL, EOMI, accommodation nl, no face palsy, no dysarthria Psychiatric: Flat affect Results & Data Vital Signs (Past 12 Hours) Vital Signs Temp Pulse Pulse Resp BP Pulse Ox 12/07/18 08:19 36.6 C 102 H 18 156/91 H 96 12/07/18 03:56 37.3 C 96 H 18 123/73 98 12/06/18 23:44 93 H 12/06/18 22:58 37.5 C 106 H 16 144/93 H 98 Labs reviewed 5.21/hgb 10.8/hct 30.4/plt 96 MCV 101.3 137/3.2/105/24/11/0.5 hemoccult + stool ca 7.6 phos 1.0 AST 50/ALT 44 TB 0.8 DB 0.4 Alb 3.0 Code Status & VTE Plan VTE Prophylaxis Plan VTE Prophylaxis will be ordered: Yes Supervising Physician Co-Signing Physician Notes 48 yo male with significant etoh history, GI consulted for anemia, alcohol use, and hemoccult + stool. No evidence of overt GI bleeding at the current time. IV ppi is fine for now. Macrocytic anemia likely from alcohol- check b12, folate. No evidence of alcoholic hepatitis on imaging. Given thrombocytopenia- would obtain abd vance with doppler to evaluate for cirrhosis and patency of pv/hv. Correct electrolytes, some signs of withdrawal given tahcycardia. At the current time though anemic and with hemoccult stools, no indication for emergent or urgent egd. He likely can have egd/colon as an outpatient with he has been sober for at least 1-2 months.
--- NOTE | 2018-12-07 09:42 | Consultation Report ---
DATE OF CONSULTATION: 12/07/2018 CHIEF COMPLAINT: Lower extremity paresthesias. REASON FOR CONSULTATION: Spinal stenosis and disc protrusion of the spine. HISTORY OF PRESENT ILLNESS: The patient is delightful, I met him in rounds this morning at approximately 8:15 a.m. He is pleasant. He is well aware of his alcohol withdrawal and his heavy alcohol consumption and would like to make a change in his lifestyle. He has tried many times and has failed. MEDICAL HISTORY: Upon admission has hyponatremia, alcohol abuse, hypophosphatemia, hyperglycemia and he currently looks stable from the alcohol withdrawal. Specifically, in regard to his spine, he describes back pain, lower extremity difficulty, paresthesias, walking intolerance, some sketchy weakness and some dorsiflexion great toe weakness as well. He is really not in much pain, resting here today. The problem starts when he gets up and tries to get ambulatory, although with longer walks, he seems to be get a little bit improved. I was not able to patch this all together. PHYSICAL EXAMINATION: He does have some numbness and tingling, appears to have some atrophy from the knee down and weakness of the great toe. His reflexes were symmetric, 1/4 knee jerk and Achilles. Still loss of sensation. Skin turgor appropriate. No varicosities. His MRI was reviewed in detail and indeed he does have fairly profound stenosis which is unusual for a 48-year-old. He has a disc protrusion at L5-S1 and severe stenosis at L4-L5 lumbar spine. IMPRESSION: Acute alcoholic withdrawal along with profound lumbar spinal stenosis, particularly L4-L5 and a disc herniation at L5-S1. I think the severe stenosis is what is causing his lower extremity difficulties dominantly. PLAN: At this point, I will get him medically stabilized of course and that appears to be under control. He is a surgical candidate. This is a surgical disease. We can treat this with injections and so forth while aware of conservative care, but the decompression of spinal canal and stabilize the spine because he does have a low-grade spondylolisthesis as well may be the more prudent pathway. I would not be doing over the Day weekend. It is not urgent, but it might be somebody he would be seeing quickly as an outpatient in the office setting and schedule for surgical intervention again if he is stable from an overall metabolic and alcoholic standpoint. I will continue to follow the patient. I will be seeing him tomorrow 12/08, Sunday, just to discuss this case further with the patient. Thank you for allowing me to see the patient.
--- NOTE | 2018-12-07 09:57 | Neurology Consultation ---
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 He has some footdrop on the left. 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 The etiology of this is not known for sure but is likely alcoholic in nature. He has some ataxia of the limbs but he has a significant gait ataxia. This is likely a cerebellar origin problem from his alcoholism. This has been a chronic problem. MRI of the brain showed no evidence of acute stroke. In addition, he has S1 radiculopathy bilaterally, by history. MRI of the lumbar spine reveals L4-5 and L5-S1 spinal stenosis from disc and bone. These look significant to me. Apparently the patient saw Dr. Harley earlier this morning. I see no upper motor neuron signs on exam, however, the peripheral issues could mask this. He does have some essential tremor (mixed in with some mild ataxia) left greater than right side. Overall, therefore, I believe his left greater than right leg weakness issues stem directly from his lumbar spine, although I cannot entirely exclude an additional left peroneal palsy. I note hyponatremia (resolved) with continued hypocalcemia and hypophosphatemia. Recommendations: 1. Agree with orthopedic spine consultation regarding surgical correction of the lumbar spine. Unfortunately he is going to half to make improvements with his alcoholism and general medical condition before he could possibly go to surgery. 2. Physical and occupational therapy. 3. Address electrolyte imbalances to control them as best as possible. These will contribute to numbness and dysesthesias as well as seizure potential. 4. Continue alcohol withdrawal protocol nutritionally and with gabapentin. This patient is at very high risk of withdrawal seizures and other serious issues. 5. I would consider repeating EMG and nerve conduction studies of both legs to evaluate for extent severity of radiculopathy and possible peroneal neuropathy, as well as polyneuropathy. 6. Control blood pressure, aiming for a mean arterial pressure of approximately 95-100. Overall, I spent a total of 70 minutes with this case including review of records, review of MRI films, direct evaluation the patient bedside, discussed the case with patient at bedside, clinical staff and Dr. Nichole, including differential diagnosis and treatment options. History of Present Illness Reason for Consultation: Patient is a 48-year-old, who I was asked to see at the request of Dr. Nichole, for neurologic consultation regarding leg weakness Requesting Physician: Dr. Nichole Attending Physician: Nimo Nichole MD History of Present Illness Patient tells me that he has had trouble walking with balance issues for at least 3 years now. I performed EMG and nerve conduction studies on this gentleman in the February of 2018 for his leg weakness and found chronic active S1 radiculopathy bilatera lly, without polyneuropathy or myopathy. He saw Dr. Ortiz who also diagnosed cerebellar ataxia secondary to chronic alcohol use. He has a history of tremor bilaterally which is dampened by alcohol. Patient tells me he started smoking cigarettes and using alcohol in high school. Currently he drinks approximately 1/2 of a 5th of vodka per day. More recently he has strength more heavily and has been using beer as well. Last week he lost his job without answering service and he has increased alcohol usage since then and has not eaten well for 4 days prior to admission. He arrived at the emergency room December 05 with an alcohol level of 243.8 after having had chest pain, shortness of breath, and increased leg weakness and numbness left greater than right side. Sodium (127) calcium (8.4) and phosphorus (2.0) for all low. AST was mildly elevated at 69. His total protein was adequate. He continued to have left greater than right leg weakness and numbness. He does not have much in the way of pain. MRI of the brain December 06 showed no acute stroke and no significant white matter changes. MRI of the lumbar spine showed severe spinal stenosis from disc in bone at L4-5 and L5-S1. This morning, sodium was normal at 137, calcium low at 7.6 and phosphorus low at 1.0. Magnesium was normal at 1.9. TSH was 0.397 Hemoglobin A1c was 5.4. Blood pressure this morning 156/91. Patient tells me he has been groggy and tired since admission. He has had no seizures or obvious withdrawal symptoms but he can be shaky at times. 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 Hypertension Sensory polyneuropathy Surgical History No pertinent past surgical history Family History Other Adopted Family history non-contributory Social History Preferred Language: Bahraini Communication Ability: Effective Program Production Specialist Required: No Beliefs That Will Affect Care: None Current Living Situation: Alone current occupational status: previously employed 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 Feels Safe at Home: Yes Smoking Status: Current every day smoker packs per day: 1 ; Hx Alcohol Use: Yes Alcohol type: beer and hard liquor Alcohol Intake Frequency Comment: 1/2 to one 5th of vodka daily, some beer Hx Substance Use: No Review of Systems Constitutional: + fatigue and + weakness; no fever Eyes: no diplopia, no eye pain and no worsening vision Ear, Nose, Mouth, Throat: no ear pain, no tinnitus, no hearing loss, no dizziness, no snoring, no hoarseness and no dysphagia Respiratory: no cough and no dyspnea Cardiovascular: no chest pain, no palpitations and no lightheadedness Gastrointestinal: no abdominal pain, no nausea and no vomiting Genitourinary: no dysuria and no urinary incontinence Musculoskeletal: + back pain; no neck pain, no radicular pain, no joint pain and no myalgia Integumentary: no rash and no lesions Neurologic: + gait abnormality, + localized weakness, + numbness and + tremor(s); no generalized weakness, no tingling, no abnormal movements, no headache(s), no abnormal speech, no confusion and no memory loss Psychiatric: no depression, no irritability, no anxiety, no difficulty concentrating, no confusion and no hallucinations Endocrine: + fatigue; no flushing Hematologic / Lymphatic: no easy bleeding and no easy bruising Allergy / Immunological: no urticaria and no problem reported Physical Exam Physical Exam: The patient is right-handed. The patient is awake, alert, and attentive. Speech is normal without any aphasia or dysarthria. he can name objects, repeat phrases, and has normal spontaneous speech. Mentation and thought processes are intact, with orientation to person, place and time, and normal fund of knowledge. Attention and concentration are normal. Mood is normal and affect is mildly flat. General appearance and grooming are normal. Short and long-term memory are intact. The discs are sharp with positive venous pulsations bilaterally. There are no exudates, hemorrhages, or blood vessel changes seen. Pupils are 4 mm bilaterally and reactive to light. Extraocular eye muscles are intact without nystagmus. Visual acuity and visual costa seem normal grossly to confrontation. There are no deficits to sensation in the face in all 3 distributions of the fifth cranial nerve bilaterally. Corneal reflexes are positive bilaterally. Facial strength and symmetry was normal bilaterally. Hearing seems normal to whisper and finger rub bilaterally. Palate moves well without asymmetry. There is normal sternocleidomastoid and trapezius (shoulder shrug) strength bilaterally. Tongue is midline with good strength bilaterally. Neck has a full range of motion without discomfort. There are no cervical bruits bilaterally. There are no cranial or ocular bruits. Heart is without murmur. There is a regular rhythm and rate. Cervical, thoracic, and lumbar spine are nontender to palpation. Gait is why based and very unsteady needing to hold onto a walker for support. Stance with eyes open and feet together it is somewhat poor and worse with eyes closed. With outstretched arms there is no drift. There are no resting tremors. However, there is mild posture and action tremor bilaterally. There is very mild ataxia with finger to nose testing. There is good facility in the hands. No other abnormal involuntary movements are noted. The left foot is clumsier than the right. Motor strength is 5/5 diffusely in the arms bilaterally including deltoids, biceps, triceps, brachioradialis, wrist flexors and extensors, linux administrator, and intrinsic hand muscles. Leg strength is 5/5 diffusely in the right lower extremity both proximally and distally. Strength is close to 5/5 proximally in the left and 4/5 distally on the left particularly with tibialis anterior and toe extensors. The limbs have good tone without rigidity or spasticity. There is no atrophy noted in the muscles. Muscle bulk is normal, there is no tenderness to palpation, no myotonia to percussion, and no fasciculations seen. Sensory examination reveals decreased sensation in a stocking distribution in the feet bilaterally. Hands are spared. Vibration is decreased in the feet. Reflexes are 2/4 in the biceps, triceps, brachioradialis, and quadriceps tendons bilaterally. Achilles tendon reflexes are absent bilaterally. There is no clonus bilaterally. Toes are downgoing with plantar stimulation bilaterally. Peripheral pulses are present and of normal quality distally in all 4 limbs. There is no peripheral edema noted in the limbs. Results & Data Vital Signs (Past 12 Hours) Vital Signs Temp Pulse Pulse Resp BP Pulse Ox 12/07/18 08:19 36.6 C 102 H 18 156/91 H 96 12/07/18 03:56 37.3 C 96 H 18 123/73 98 12/06/18 23:44 93 H 12/06/18 22:58 37.5 C 106 H 16 144/93 H 98 Diagnostic Findings MR brain wo/w con CLINICAL HISTORY: LLE weakness,h/o cerebellar ataxia COMPARISON STUDY: 03/26/2018 TECHNIQUE: Utilizing a 1.5 Nellie magnet and dedicated coil, multiplanar, multiecho imaging of the brain was performed pre and postcontrast administration. IV administration of 8.5 mL of Gadavist contrast was uneventful. FINDINGS: Diffusion-weighted images are unremarkable. Signal characteristics of the cerebellar as well as cerebral hemispheres are within normal limits. The ventricular system is midline. Postcontrast images are considered negative for enhancing lesion. IMPRESSION: Negative study of the brain. No change from the prior exam. The above report was generated using voice recognition software. It may contain grammatical, syntax or spelling errors. Electronically signed by: Kam Agarwal M.D. 12/06/2018 11:11 AM MR lumbar spine wo con HISTORY: Pain. Neuropathy. LLE weakness, h/o lumbar radiculopathy, worsening TECHNIQUE: Multiplanar multisequence MRI of the lumbar spine was performed without the use of contrast. COMPARISON: None. FINDINGS: For the purpose of the report the L5-S1 disc space will be located on axial image 23 of 25. Normal signal characteristics of the vertebral bodies. Minimal grade 1 anterolisthesis of L4 on L5. Sagittal images suggest posterior disc herniations at L4-L5 and L5-S1. L1-L2: No significant central canal or neural foraminal narrowing. L2-L3: Minimal broad-based disc bulge. Minimal impact anterior thecal sac. L3-L4: No significant central canal or neural foraminal narrowing. L4-L5: Significant multifactorial narrowing of the spinal canal. Severe compromise of the right and to a lesser extent left neural foramina. Broad-based disc herniation with findings accentuated by grade 1 anterolisthesis. L5-S1: Right central disc herniation. Moderate impact anterior aspect of thecal sac. Significant narrowing of the right and to a lesser extent left neural foramina. IMPRESSION: 1. Severe multifactorial spinal stenosis L4-L5. 2. This is also associated with considerable narrowing of the right to lesser extent left foramina. 3. Broad-based right central disc herniation L5-S1 with moderate impact upon the anterior thecal sac as well as significant narrowing of the right and to a lesser extent left neural foramina. The above report was generated using voice recognition software. It may contain grammatical, syntax or spelling errors. Electronically signed by: Kam Agarwal M.D. 12/06/2018 11:06 AM PG Care Time/CCT Total # of Minutes Spent Total Time Spent with Patient: Total time spent is greater than 50% in coordination of care (as documented) at patient's floor/unit and/or counseling patient:
[2018-12-07 10:03] LABS: Hematocrit (blood only) 29.4 % (42-52); Hemoglobin 10.4 g/dL (14.0-18.0); Mean Corpuscular Hemoglobin 35.3 pg (25-34); Mean Corpuscular Hgb Conc 35.4 g/dL (32-36); Mean Corpuscular Volume 99.7 fL (80-100); RDW Coefficient of Variation 13.1 % (11.5-14.5); RDW Standard Deviation 47.8 fL (36.4-46.3); Red Blood Count 2.95 M/uL (4.7-6.1); White Blood Count 5.06 K/uL (4.8-10.8)
[2018-12-07 10:04] LABS: Mean Platelet Volume 9.6 fL (7.4-10.4); Platelet Count 87 K/uL (130-400)
[2018-12-07 15:03] LABS: Hematocrit (blood only) 31.5 % (42-52); Hemoglobin 10.9 g/dL (14.0-18.0); Mean Corpuscular Volume 101.3 fL (80-100); RDW Coefficient of Variation 13.3 % (11.5-14.5); RDW Standard Deviation 48.9 fL (36.4-46.3); Red Blood Count 3.11 M/uL (4.7-6.1); White Blood Count 4.44 K/uL (4.8-10.8)
[2018-12-07 15:06] LABS: Mean Corpuscular Hgb Conc 34.6 g/dL (32-36); Platelet Count 87 K/uL (130-400)
[2018-12-07 15:21] LABS: Basophils # (auto) 0.01 K/uL (0-0.2); Basophils % (auto) 0.2 %; Dohle Bodies 1+; Eosinophils # (auto) 0.08 K/uL (0-0.5); Eosinophils % (auto) 1.8 %; Giant Platelets 1+; Immature Granulocytes # (auto) 0.01 K/uL (0.00-0.02); Immature Granulocytes % (auto) 0.2 %; Lymphocytes # (auto) 0.92 K/uL (1.2-3.4); Lymphocytes % (auto) 20.7 %; Monocytes # (auto) 0.33 K/uL (0.11-0.59); Monocytes % (auto) 7.4 %; Neutrophils # (auto) 3.09 K/uL (1.4-6.5); Neutrophils % (auto) 69.7 %
--- NOTE | 2018-12-07 16:03 | Hospitalist Progress Note ---
Date of Service December 07, 2018 Assessment & Plan (1) Alcohol dependence: Has emotional lability, tremors at times, tachycardic secondary to withdrawal, dehydration--> improving Continue Treating EtOH withdrawal with gabapentin taper, AWSS scale, ativan prn interested in quitting drinking (2) Acute blood loss anemia: Had 2 episodes of melena on 12/07 witnessed by RNs Hgb dropped from 15 to 10 and then stabilized on serial H/H. 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 Serum bicarb = 11, lactate = 4.5 on admission, now resolved Blood pressure is stable. Patient does not appear to be infected/septic. Most likely secondary to alcohol ketoacidosis. -- continue IV fluid hydration with normal saline solution with KCl 20meq -Encourage alcohol cessation -replace lytes -follow BMP (8) Hyponatremia: Patient with moderate hyponatremia. Sodium = 127. Chloride = 92 on admission, now resolved, Na+ at 137. Most likely secondary to low solute intake as patient reports not eating and drinking heavy amount of alcohol. -resolved with IVFs with NS -continue to follow BMP (9) Left leg weakness: L-spine MRI as above MRI brain no stroke Ortho SPine and Neuro consults appreciated (10) Hypophosphatemia: Most likely secondary to low solute intake, severe -continue IV and po replacement again today for severely low levels -Repeat phosphorus level in the morning (11) Chronic alcohol use: Patient with long-standing history of heavy alcohol use. History of seizures and withdrawal. With alcohol level of 243.8 on admission. He is having withdrawal, no seizures - [facility] protocol -Seizure precautions -Gabapentin per protocol -Daily folic acid and high-dose thiamine (12) Hyperglycemia: Glucose = 188. Patient with no prior history of diabetes hemoglobin A1c only 5.4% (13) DVT prophylaxis: Prophylaxis-hold Lovenox for I bleeding Code-full per discussion with patient Disposition-continued stay on PCU Subjective Pt had a large black stool early this AM that was Heme positive. He dropped his hgb 5 points today.He had another black loose stool in the afternoon but hgb remained stable on several repeat checks today. Pt denies any abdominal pain, has some occasional heartburn. Still feels weak in LLE. Back pain still present. Had some emotional lability as per RN earlier in the day and had a high AWSS score requiring 2 mg IV ativan. This helped tremendously. He still c/o drowsiness which I explained is likely from medications Tele with ZAIN, 80s-100s Review of Systems Review of Systems: All systems reviewed & are unremarkable except as noted in HPI & below Physical Exam Constitutional: + ill appearing; no acute distress Eyes: + anicteric sclerae ENMT: external ear and nose normal, oropharynx normal Neck: trachea midline, no thyromegaly Respiratory: normal respiratory effort, lungs clear to auscultation Cardiovascular: Rate/Rhythm: regular rate and regular rhythm Heart Sounds: no murmur Extremities: no edema Gastrointestinal (Abdomen): normal bowel sounds, soft, nontender, no hepatosplenomegaly Musculoskeletal: Extremities: extremities normal to inspection; no cyanosis and no clubbing Skin: no rashes, warm and dry Neurologic: + focal motor deficit (Left foot drop,3/5 left great toe dorsiflexion,otherwise 5/5 strength) and awake Speech / Cognition: normal speech Motor/Sensory: no pronator drift and no sensory deficit Psychiatric: Orientation: alert, oriented to person, oriented to place and cooperative Results & Data Vital Signs (Past 12 Hours) Vital Signs Temp Pulse Pulse Resp BP BP Pulse Ox 12/07/18 15:32 36.8 C 80 16 148/91 H 98 12/07/18 11:44 36.6 C 82 16 133/86 97 12/07/18 11:37 100 H 12/07/18 08:19 36.6 C 102 H 18 156/91 H 96 Laboratory Results 0812/07/18 12/07/18 Range/Units 20:50 14:52 09:49 WBC 5.13 4.44 L 5.06 (4.8-10.8) K/uL RBC 3.01 L 3.11 L 2.95 L (4.7-6.1) M/uL Hgb 10.6 L 10.9 L 10.4 L (14.0-18.0) g/dL Hct 30.5 L 31.5 L 29.4 L (42-52) % MCV 101.3 H 101.3 H 99.7 (80-100) fL MCH 35.2 H 35.0 H 35.3 H (25-34) pg MCHC 34.8 34.6 35.4 (32-36) g/dL RDW Std Deviation 48.4 H 48.9 H 47.8 H (36.4-46.3) fL RDW Coeff of Arturo 13.2 13.3 13.1 (11.5-14.5) % Plt Count 89 L 87 L 87 L (130-400) K/uL MPV 10.3 10.0 9.6 (7.4-10.4) fL Immature Gran % (Auto) 0.2 % Neut % (Auto) 69.7 % Lymph % (Auto) 20.7 % Mason % (Auto) 7.4 % Eos % (Auto) 1.8 % Baso % (Auto) 0.2 % Immature Gran # (Auto) 0.01 (0.00-0.02) K/uL Neut # (Auto) 3.09 (1.4-6.5) K/uL Lymph # (Auto) 0.92 L (1.2-3.4) K/uL Mason # (Auto) 0.33 (0.11-0.59) K/uL Eos # (Auto) 0.08 (0-0.5) K/uL Baso # (Auto) 0.01 (0-0.2) K/uL Dohle Bodies 1+ Platelet Estimate (Normal) Giant Platelets 1+ RBC Morphology Sodium (136-145) mmol/L Potassium (3.5-5.1) mmol/L Chloride (98-107) mmol/L Carbon Dioxide (21-32) mmol/L Anion Gap (3-11) BUN (7-18) mg/dl Creatinine (0.6-1.4) mg/dl Est Cr Clr Drug Dosing ml/min Est GFR ( Amer) Est GFR (Non-Af Amer) BUN/Creatinine Ratio (10-20) Glucose (70-99) mg/dl Calcium (8.5-10.1) mg/dl Phosphorus (2.5-4.9) mg/dl Magnesium (1.8-2.4) mg/dl Total Bilirubin (0.2-1) mg/dl Direct Bilirubin (0-0.2) mg/dl AST (15-37) U/L ALT (12-78) U/L Alkaline Phosphatase (45-117) U/L Total Protein (6.4-8.2) gm/dl Albumin (3.4-5.0) gm/dl Stool Occult Bld Scrn (Negative) 12/07/18 12/07/18 12/07/18 Range/Units 06:18 05:37 05:37 WBC 5.21 (4.8-10.8) K/uL RBC 3.00 L (4.7-6.1) M/uL Hgb 10.8 L D (14.0-18.0) g/dL Hct 30.4 L (42-52) % MCV 101.3 H (80-100) fL MCH 36.0 H (25-34) pg MCHC 35.5 (32-36) g/dL RDW Std Deviation 47.9 H (36.4-46.3) fL RDW Coeff of Arturo 13.0 (11.5-14.5) % Plt Count 96 L (130-400) K/uL MPV 10.4 (7.4-10.4) fL Immature Gran % (Auto) 0.2 % Neut % (Auto) 72.5 % Lymph % (Auto) 17.5 % Mason % (Auto) 8.3 % Eos % (Auto) 1.3 % Baso % (Auto) 0.2 % Immature Gran # (Auto) 0.01 (0.00-0.02) K/uL Neut # (Auto) 3.78 (1.4-6.5) K/uL Lymph # (Auto) 0.91 L (1.2-3.4) K/uL Mason # (Auto) 0.43 (0.11-0.59) K/uL Eos # (Auto) 0.07 (0-0.5) K/uL Baso # (Auto) 0.01 (0-0.2) K/uL Dohle Bodies Platelet Estimate Decreased L (Normal) Giant Platelets RBC Morphology Unremarkable Sodium 137 (136-145) mmol/L Potassium 3.2 L (3.5-5.1) mmol/L Chloride 105 (98-107) mmol/L Carbon Dioxide 24 (21-32) mmol/L Anion Gap 8.0 (3-11) BUN 11 (7-18) mg/dl Creatinine 0.48 L (0.6-1.4) mg/dl Est Cr Clr Drug Dosing 192.2 ml/min Est GFR ( Amer) 150.0 Est GFR (Non-Af Amer) 129.4 BUN/Creatinine Ratio 23.5 H (10-20) Glucose 88 (70-99) mg/dl Calcium 7.6 L (8.5-10.1) mg/dl Phosphorus 1.0 L* (2.5-4.9) mg/dl Magnesium 1.9 (1.8-2.4) mg/dl Total Bilirubin 0.8 (0.2-1) mg/dl Direct Bilirubin 0.4 H D (0-0.2) mg/dl AST 50 H (15-37) U/L ALT 41 (12-78) U/L Alkaline Phosphatase 44 L (45-117) U/L Total Protein 5.9 L (6.4-8.2) gm/dl Albumin 3.0 L (3.4-5.0) gm/dl Stool Occult Bld Scrn Positive A (Negative) PG Care Time/CCT Total # of Minutes Spent Total Time Spent with Patient: Total time spent is greater than 50% in coordin ation of care (as documented) at patient's floor/unit and/or counseling patient:
[2018-12-07 21:09] LABS: Hematocrit (blood only) 30.5 % (42-52); Hemoglobin 10.6 g/dL (14.0-18.0); Mean Corpuscular Hemoglobin 35.2 pg (25-34); Mean Corpuscular Hgb Conc 34.8 g/dL (32-36); Mean Corpuscular Volume 101.3 fL (80-100); Mean Platelet Volume 10.3 fL (7.4-10.4); Platelet Count 89 K/uL (130-400); RDW Coefficient of Variation 13.2 % (11.5-14.5); RDW Standard Deviation 48.4 fL (36.4-46.3); Red Blood Count 3.01 M/uL (4.7-6.1); White Blood Count 5.13 K/uL (4.8-10.8)
[2018-12-07] MEDS: LORAZEPAM 2MG IV ACTIVE PROTOCOL IV PRN (21:44)
[2018-12-08] MEDS: PANTOprazole 40 MG in DEXTROSE 5% 100 ML IV SCH ×5 (00:04→20:02)
[2018-12-08] MEDS: NSS + 20MEQ KCL 20 MEQ/1,000 ML BAG IV SCH ×2 (02:55→14:36)
[2018-12-08] MEDS: THIAMINE HCL IV SCH ×3 (05:29→21:16)
[2018-12-08] MEDS: DEXTROSE 5% IV SCH ×3 (05:29→21:16)
[2018-12-08 06:12] LABS: Hematocrit (blood only) 30.4 % (42-52); Hemoglobin 10.7 g/dL (14.0-18.0); Mean Corpuscular Hemoglobin 35.5 pg (25-34); Mean Corpuscular Hgb Conc 35.2 g/dL (32-36); RDW Standard Deviation 48.6 fL (36.4-46.3); Red Blood Count 3.01 M/uL (4.7-6.1); White Blood Count 5.86 K/uL (4.8-10.8)
[2018-12-08 06:20] LABS: Mean Platelet Volume 9.4 fL (7.4-10.4); Platelet Count 87 K/uL (130-400)
[2018-12-08] MEDS: LORAZEPAM 2MG IV ACTIVE PROTOCOL IV PRN ×2 (06:34→22:12)
[2018-12-08 06:41] LABS: Basophils # (auto) 0.01 K/uL (0-0.2); Basophils % (auto) 0.2 %; Eosinophils # (auto) 0.14 K/uL (0-0.5); Eosinophils % (auto) 2.4 %; Immature Granulocytes # (auto) 0.02 K/uL (0.00-0.02); Immature Granulocytes % (auto) 0.3 %; Lymphocytes # (auto) 1.39 K/uL (1.2-3.4); Lymphocytes % (auto) 23.7 %; Monocytes # (auto) 0.39 K/uL (0.11-0.59); Monocytes % (auto) 6.7 %; Neutrophils # (auto) 3.91 K/uL (1.4-6.5); Neutrophils % (auto) 66.7 %; RBC Morphology Unremarkable
[2018-12-08 06:49] LABS: Albumin Globulin Ratio 0.9 (0.9-2); BUN Creatinine Ratio 8.7 (10-20); Bilirubin,Total 0.9 mg/dl (0.2-1); Creatinine Clr Calc Pharmacy 170.9 ml/min; Est GFR (African American) 142.9; Est GFR (Non-African American) 123.3; Globulin 3.2 gm/dl (2.5-4.0); Magnesium 2.1 mg/dl (1.8-2.4); Phosphorus 2.1 mg/dl (2.5-4.9); Potassium 3.1 mmol/L (3.5-5.1); Total Protein 6.2 gm/dl (6.4-8.2)
[2018-12-08] MEDS: POT PHOSPHATE MONOBASIC W/ SOD TAB PO SCH ×4 (07:51→20:03)
[2018-12-08] MEDS: FOLIC ACID 1 MG in SYRINGE 9.8 ML IV SCH (07:54)
--- NOTE | 2018-12-08 08:12 | Ultrasound Report ---
US duplex portal hepatic veins CLINICAL HISTORY: assess for cirrhosis,Portal vein thrombosis COMPARISON STUDY: None. FINDINGS: The splenic vein, hepatic artery, hepatic veins, portal veins are patent and demonstrate no rmal directional flow. IMPRESSION: No evidence for portal vein thrombosis. Electronically signed by: Michael Erickson M.D. 12/08/2018 8:11 AM
--- NOTE | 2018-12-08 09:00 | Progress Note ---
DATE: 12/08/2018 SUBJECTIVE: I rounded quite early on Sunday morning. Uday was asleep, I did not wake him for morning rounds. Vital signs were stable. No reported chest pain or shortness of breath. SUMMARY: Includes that of a delightful fellow who has combination of some upper motor neuron issues secondary to alcoholism and some spinal stenosis, lumbar spine. PLAN: Surgery would be not indicated at this point in time, may be in the future. He needs to get metabolically really squared away before surgical consideration. He will be discharged home from my standpoint at any time. I should see him back in the office for followup examination within the next 2-3 weeks.
[2018-12-08] MEDS ORDERED: POTASSIUM PHOS 3 MMOL/1 ML INFUSION IV STA (09:09)
[2018-12-08] MEDS ORDERED: POTASSIUM CHLORIDE 20 MEQ TABCR PO STA (09:09)
[2018-12-08] MEDS ORDERED: POTASSIUM PHOSPHATE 21 MMOL in SODIUM CHLORIDE 0.9% 500 ML IV ONE (09:30)
--- NOTE | 2018-12-08 09:55 | Gastroenterology Progress Note ---
Date of Service December 08, 2018 Supervising Physician Co-Signing Physician Notes 48 yo male with a history of etoh use. Anemia likely from etoh use - checking b12/folate level, multiple nutritional deficiencies likely from underlying alcohol use, strict alcohol cessation, alcohol rehab consideration Outpatient egd/colon for further evaluation of his anemia in 4-6 weeks pending sobriety. No signs of overt GI bleeding. Subjective No acute complaints Patient sleeping but arousable but voiced no complaints Review of Systems Review of Systems: All systems reviewed & are unremarkable except as noted in HPI & below Physical Exam Physical Exam: Lying in bed in no acute distress Eyes: PERRL, conjunctivae normal, anicteric sclerae Gastrointestinal (Abdomen): normal bowel sounds, soft, nontender, no hepatosplenomegaly Results & Data Vital Signs (Past 12 Hours) Vital Signs Temp Pulse Resp BP BP Pulse Ox 12/08/18 07:19 36.8 C 79 16 141/85 H 98 12/08/18 02:58 36.7 C 88 18 146/87 H 99 12/07/18 22:55 36.6 C 85 18 142/91 H 99 Labs reviewed Stable h/h, low platelets Ast trending down TB normal Abd vance with doppler reviewed
[2018-12-08] MEDS: GABAPENTIN 600 MG TAB PO SCH (10:29)
--- NOTE | 2018-12-08 11:12 | Hospitalist Progress Note ---
Date of Service December 08, 2018 Assessment & Plan (1) Alcohol dependence: Had emotional lability, tremors at times, tachycardia and hypertension secondary to withdrawal, dehydration--> all significantly improved/resolved Continue Treating EtOH withdrawal with gabapentin taper, but will continue on a standing dose of gabapentin 300 mg p.o. twice daily to help with alcohol cravings after discharge -Continue AWSS scale, ativan prn -Interested in quitting drinking-will ask case management to bring him information on outpatient drug and alcohol counseling (2) Acute blood loss anemia: Had 2 episodes of melena on 12/07 witnessed by RNs Hgb dropped from 15 to 10 and then has since stabilized on serial H/H. Had some heartburn on admission which continues intermittently Likely gastritis vs PUD GI Consult appreciated-no need for EGD currently -started IV PPI gtt x2 days-we will now transition to Protonix 40 mg p.o. twice daily for 2 months -continue to follow CBC daily -Will not likely need a transfusion at this point (3) GI bleed: as above Outpatient egd/colon for further evaluation of his anemia in 4-6 weeks pending sobriety. 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 Serum bicarb = 11, lactate = 4.5 on admission, now resolved Blood pressure is stable. Patient does not appear to be infected/septic. Most likely secondary to alcohol ketoacidosis. Was hydrated copiously with IV fluids-we will now discontinue -Encourage alcohol cessation -Continue to replace lytes -follow BMP (8) Hyponatremia: Patient with hyponatremia on admission. Sodium = 127. Chloride = 92 on admission, now resolved, Na+ at 140 Most likely secondary to low solute intake/[place]ia as patient reports not eating and drinking heavy amount of alcohol. -resolved with IVFs with NS -continue to follow BMP -Can discontinue IV fluids now (9) Left leg weakness: L-spine MRI as above MRI brain no stroke Ortho SPine and Neuro consults appreciated (10) Hypophosphatemia: Most likely secondary to low solute intake, severe but finally improving -continue IV and po replacement again today for severely low levels -Will reduce p.o. dose to 1 tab p.o. 4 times daily -Repeat phosphorus level in the morning (11) Chronic alcohol use: Patient with long-standing history of heavy alcohol use. History of seizures and withdrawal. With alcohol level of 243.8 on admission. He is having active withdrawal as above, no seizures-improving - [facility] protocol -Seizure precautions -Gabapentin per protocol and then standing dose as above -Convert IV folic acid to p.o. and reduce high-dose thiamine to 500 mg IV once daily and then eventually to 100 mg p.o. daily upon discharge (12) Hyperglycemia: Glucose = 188. Patient with no prior history of diabetes hemoglobin A1c only 5.4% (13) Hypokalemia: Potassium remains low today at 3.1, likely secondary to poor p.o. intake -Replace with IV and oral potassium -Follow BMP in the morning (14) Thrombocytopenia: Platelets dropped and remaining stable at 80 7K, likely secondary to acute alcoholic hepatitis Portal vein ultrasound negative for portal vein thrombosis No evidence of bleeding -Follow CBC (15) DVT prophylaxis: Prophylaxis-holding Lovenox GI bleeding Add SCDs Code-full Disposition-continued stay on PCU, but can likely transition to medical floor by tomorrow as he will then be beyond the window for developing delirium tremens If electrolyte abnormalities continue to improve and he is tolerating p.o., hemoglobin remained stable from GI bleed, he could potentially be discharged home in the next 1 to 2 days Subjective Patient still reports feeling tired but is overall slightly improved. He was able to get up to stand and urinate in the toilet today next to the bed. He denies chest pain or shortness of breath, denies headache or lightheadedness, no nausea or abdominal pain. He had one more small black bowel movement this morning but his hemoglobin remained stable. Still with weakness in the left foot. He denies hallucinations or tremors. His blood pressures and heart rate are significantly improved today. He denies any lower back pain today He is interested in quitting drinking alcohol, but is not interested in going to alcohol rehab. He has attended AA meetings in the past and would be willing to do that, as well as he is willing to see a drug and alcohol counselor as an outpatient-asked case management to provide him with information on resources for this in the area I discussed his case with the neurologist Telemetry with normal sinus rhythm with rates in the 70s, much improved from previous Review of Systems Review of Systems: All systems reviewed & are unremarkable except as noted in HPI & below Physical Exam Constitutional: WD/WN, vitals as above no acute distress Eyes: + anicteric sclerae Neck: trachea midline, no thyromegaly Respiratory: normal respiratory effort, lungs clear to auscultation Cardiovascular: Rate/Rhythm: regular rate and regular rhythm Heart Sounds: no murmur Extremities: no edema Gastrointestinal (Abdomen): normal bowel sounds, soft, nontender, no hepatosplenomegaly Musculoskeletal: Extremities: extremities normal to inspection; no cyanosis and no clubbing Skin: no rashes, warm and dry Neurologic: + focal motor deficit (Left foot drop 2/5 strength with ankle dorsiflexion,4/5 left great toe dorsiflexion which is improved from previous,otherwise 5/5 strength throughout other extremities) and awake Speech / Cognition: normal speech Psychiatric: Orientation: alert, oriented to person, oriented to place, oriented to time and cooperative Speech: normal rate/rhythm/volume of speech Affect: + flat affect Results & Data Vital Signs (Past 12 Hours) Vital Signs Temp Pulse Pulse Resp BP BP Pulse Ox 12/08/18 08:00 73 12/08/18 07:19 36.8 C 79 16 141/85 H 98 12/08/18 02:58 36.7 C 88 18 146/87 H 99 Laboratory Results 12/08/18 12/08/18 Range/Units 05:51 05:51 WBC 5.86 (4.8-10.8) K/uL RBC 3.01 L (4.7-6.1) M/uL Hgb 10.7 L (14.0-18.0) g/dL Hct 30.4 L (42-52) % MCV 101.0 H (80-100) fL MCH 35.5 H (25-34) pg MCHC 35.2 (32-36) g/dL RDW Std Deviation 48.6 H (36.4-46.3) fL RDW Coeff of Arturo 13.0 (11.5-14.5) % Plt Count 87 L (130-400) K/uL MPV 9.4 (7.4-10.4) fL Immature Gran % (Auto) 0.3 % Neut % (Auto) 66.7 % Lymph % (Auto) 23.7 % [place]kin % (Auto) 6.7 % Eos % (Auto) 2.4 % Baso % (Auto) 0.2 % Immature Gran # (Auto) 0.02 (0.00-0.02) K/uL Neut # (Auto) 3.91 (1.4-6.5) K/uL Lymph # (Auto) 1.39 (1.2-3.4) K/uL [place]kin # (Auto) 0.39 (0.11-0.59) K/uL Eos # (Auto) 0.14 (0-0.5) K/uL Baso # (Auto) 0.01 (0-0.2) K/uL RBC Morphology Unremarkable Sodium 140 (136-145) mmol/L Potassium 3.1 L (3.5-5.1) mmol/L Chloride 105 (98-107) mmol/L Carbon Dioxide 27 (21-32) mmol/L Anion Gap 8.0 (3-11) BUN 5 L D (7-18) mg/dl Creatinine 0.54 L (0.6-1.4) mg/dl Est Cr Clr Drug Dosing 170.9 ml/min Est GFR ( Amer) 142.9 Est GFR (Non-Af Amer) 123.3 BUN/Creatinine Ratio 8.7 L (10-20) Glucose 92 (70-99) mg/dl Calcium 8.0 L (8.5-10.1) mg/dl Phosphorus 2.1 L D (2.5-4.9) mg/dl Magnesium 2.1 (1.8-2.4) mg/dl Total Bilirubin 0.9 (0.2-1) mg/dl AST 42 H (15-37) U/L ALT 40 (12-78) U/L Alkaline Phosphatase 47 (45-117) U/L Total Protein 6.2 L (6.4-8.2) gm/dl Albumin 3.0 L (3.4-5.0) gm/dl Globulin 3.2 (2.5-4.0) gm/dl Albumin/Globulin Ratio 0.9 (0.9-2) PG Care Time/CCT Total # of Minutes Spent Total Time Spent with Patient: Total time spent is greater than 50% in coordination of care (as documented) at patient's floor/unit and/or counseling patient:
--- NOTE | 2018-12-08 11:40 | Neurology Progress Note ---
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 He has some footdrop on the left. 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 The etiology of this is not known for sure but is likely alcoholic in nature. He has some ataxia of the limbs but he has a significant gait ataxia. This is likely a cerebellar origin problem from his alcoholism. This has been a chronic problem. MRI of the brain showed no evidence of acute stroke. In addition, he has S1 radiculopathy bilaterally, by history. MRI of the lumbar spine reveals L4-5 and L5-S1 spinal stenosis from disc and bone. These look significant to me. I see no upper motor neuron signs on exam, however, the peripheral issues could mask this. He does have some essential tremor (mixed in with some mild ataxia) left greater than right side. Overall, therefore, I believe his left greater than right leg weakness issues stem directly from his lumbar spine, although I cannot entirely exclude an additional left peroneal palsy. I note hyponatremia (resolved) with continued hypocalcemia and hypophosphatemia. Recommendations: 1. Agree with Dr. Harley, that although he has a significant stenosis in his lumbar spine, he will have to make improvements with his alcoholism and general medical condition before he could possibly go to surgery. 2. Physical and occupational therapy. 3. Address electrolyte imbalances to control them as best as possible. These will contribute to numbness and dysesthesias as well as seizure potential. 4. Continue alcohol withdrawal protocol nutritionally and with gabapentin. This patient is at very high risk of withdrawal seizures and other serious issues. He needs to discontinue alcohol from a neurologic standpoint. 5. Consider repeating EMG and nerve conduction studies of both legs to evaluate for extent severity of radiculopathy and possible peroneal neuropathy, as well as polyneuropathy. This comma obviously, would be done as an outpatient. 6. Control blood pressure, aiming for a mean arterial pressure of approximately 95-100. Overall, I spent a total of 25 minutes with this case including review of records, review of MRI films, direct evaluation the patient bedside, discussed the case with patient at bedside, clinical staff and Dr. Nichole, including differential diagnosis and treatment options. Subjective Patient has no new issues and has no complaint of pain or headache. He has no new weakness or numbness. Patient has anemia is about the same. The B12 level is pending. Chem profile showed improved calcium and phosphorus but potassium was slightly low at 3.1. He has been in normal sinus rhythm and has not had any obvious withdrawal issues over the last 24 hours. Blood pressure is 141/85 and pulse is in the 70s. Physical Exam Physical Exam: He is awake and alert. Speech is without aphasia or dysarthria. Mood is good and affect is appropriate. Thought processes are intact to conversation. Gait is wide-based and he uses a walker. He is ambulating a little better than he did yesterday. Strength is symmetrical in the arms being 5/5. He still has footdrop on the left as before. Results & Data Vital Signs (Past 12 Hours) Vital Signs Temp Pulse Pulse Resp BP BP Pulse Ox 12/08/18 11:11 36.8 C 79 17 135/88 97 12/08/18 08:00 73 12/08/18 07:19 36.8 C 79 16 141/85 H 98 12/08/18 02:58 36.7 C 88 18 146/87 H 99 PG Care Time/CCT Total # of Minutes Spent Total Time Spent with Patient: Total time spent is greater than 50% in coordination of care (as documented) at patient's floor/unit and/or counseling patient:
[2018-12-09] MEDS: ACETAMINOPHEN 325 MG TAB PO PRN (01:57)
[2018-12-09 06:55] LABS: Hematocrit (blood only) 30.7 % (42-52); Hemoglobin 10.5 g/dL (14.0-18.0); Mean Corpuscular Hemoglobin 34.9 pg (25-34); Mean Corpuscular Hgb Conc 34.2 g/dL (32-36); RDW Coefficient of Variation 13.2 % (11.5-14.5); RDW Standard Deviation 49.7 fL (36.4-46.3); Red Blood Count 3.01 M/uL (4.7-6.1)
[2018-12-09 07:00] LABS: Platelet Count 89 K/uL (130-400)
[2018-12-09 07:01] LABS: Basophils # (auto) 0.01 K/uL (0-0.2); Basophils % (auto) 0.2 %; Eosinophils # (auto) 0.14 K/uL (0-0.5); Eosinophils % (auto) 2.5 %; Immature Granulocytes # (auto) 0.03 K/uL (0.00-0.02); Immature Granulocytes % (auto) 0.5 %; Lymphocytes # (auto) 1.31 K/uL (1.2-3.4); Lymphocytes % (auto) 23.8 %; Monocytes # (auto) 0.59 K/uL (0.11-0.59); Monocytes % (auto) 10.7 %; Neutrophils # (auto) 3.42 K/uL (1.4-6.5); Neutrophils % (auto) 62.3 %
[2018-12-09 07:29] LABS: Alanine Aminotransferase 40 U/L (12-78); Albumin Level 2.9 gm/dl (3.4-5.0); Aspartate Aminotransferase 35 U/L (15-37); BUN Creatinine Ratio 6.5 (10-20); Blood Urea Nitrogen 3 mg/dl (7-18); Calcium 8.6 mg/dl (8.5-10.1); Carbon Dioxide 25 mmol/L (21-32); Chloride 106 mmol/L (98-107); Creatinine Clr Calc Pharmacy 214.6 ml/min; Est GFR (African American) > 150.0; Est GFR (Non-African American) 135.4; Glucose 93 mg/dl (70-99); Magnesium 2.1 mg/dl (1.8-2.4); Potassium 3.4 mmol/L (3.5-5.1); Sodium 140 mmol/L (136-145)
[2018-12-09 07:42] LABS: Giant Platelets 1+
[2018-12-09 08:02] LABS: Alkaline Phosphatase 47 U/L (45-117); Bilirubin,Total 0.7 mg/dl (0.2-1); Globulin 2.9 gm/dl (2.5-4.0); Phosphorus 3.9 mg/dl (2.5-4.9); Total Protein 5.8 gm/dl (6.4-8.2)
[2018-12-09] MEDS: LORAZEPAM 1MG IV ACTIVE PROTOCOL IV PRN (08:03)
[2018-12-09] MEDS: POT PHOSPHATE MONOBASIC W/ SOD TAB PO SCH ×2 (08:11→12:35)
[2018-12-09] MEDS ORDERED: THIAMINE HCL IV SCH (09:00)
[2018-12-09] MEDS ORDERED: FOLIC ACID 1 MG TAB PO SCH (09:00)
[2018-12-09] MEDS ORDERED: DEXTROSE 5% IV SCH (09:00)
[2018-12-09] MEDS ORDERED: PANTOprazole 40 MG TAB PO SCH (09:00)
--- NOTE | 2018-12-09 09:32 | Gastroenterology Progress Note ---
Date of Service December 09, 2018 Supervising Physician Co-Signing Physician Notes 48 yo male admitted sunday, neurological reports of weakness and being followed with alcoholic liver disease. Presumed to have cirrhosis given thrombocytopenia however no actual abd vance done- could obtain liver vance to confirm [facility] admission. Would suggest outpatient egd/colon for further workup of macrocytic anemia in 2- 4 weeks when sober. Alcohol abstinence and rehab is recommended. Our office will contact him tomorrow for egd/colon to be arranged. Further monitoring for hemoydnamic instability given recent etoh use. Supplemental vitamins (thiamine) upon discharge, strict alcohol cessation. Subjective No acute complaints Review of Systems Review of Systems: All systems reviewed & are unremarkable except as noted in HPI & below Physical Exam Physical Exam: Sleepy but arousable Eyes: PERRL, conjunctivae normal, anicteric sclerae Gastrointestinal (Abdomen): normal bowel sounds, soft, nontender, no hepatosplenomegaly Skin: no rashes, warm and dry Results & Data Vital Signs (Past 12 Hours) Vital Signs Temp Pulse Pulse Resp BP Pulse Ox 12/09/18 08:00 67 12/09/18 06:52 36.6 C 72 18 147/84 H 98 12/09/18 04:11 36.6 C 84 18 137/86 98 12/08/18 23:52 37.1 C 78 18 145/92 H 98 Labs reviewed and stable
[2018-12-09] MEDS ORDERED: GABAPENTIN 600 MG TAB PO SCH (11:00)
--- NOTE | 2018-12-09 15:13 | Discharge Summary ---
Date of Service December 09, 2018 Admission HPI Per Admitting Provider 48 yo male with a history of alcohol use. GI being consulted per Dr. Nichole for anemia,? gi bleed, and alcohol use. Patient has been drinking for some time- interested in stopping. Admitted with weakness- had MRI back, ortho and neuro consulted. Labs sig for macrocytic anemia, no overtbleeding, hemoccult +. No prior scopes in [employer]. He has a flat effect. Endorses living with his father. Drinking daily. No other complaints today. 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 Discharge Exam Constitutional WD/WN, vitals as above no acute distress Eyes PERRL, conjunctivae normal, anicteric sclerae + anicteric sclerae ENMT external ear and nose normal, oropharynx normal Neck trachea midline, no thyromegaly Respiratory normal respiratory effort, lungs clear to auscultation Cardiovascular Rate/Rhythm: regular rate and regular rhythm Heart Sounds: no murmur Extremities: no edema Gastrointestinal (Abdomen) normal bowel sounds, soft, nontender, no hepatosplenomegaly Musculoskeletal Extremities: extremities normal to inspection; no cyanosis and no clubbing Skin no rashes, warm and dry Neurologic + focal motor deficit (Left foot drop 2/5 strength with ankle dorsiflexion,4/5 left great toe dorsiflexion which is improved from previous,otherwise 5/5 str ength throughout other extremities) and awake Speech / Cognition: normal speech Motor/Sensory: no pronator drift and no sensory deficit Coordination: + abnormal [id number] test (with ataxia on left>Right hand) and + abnormal hlyp-[id number] test (on left) Psychiatric A+Ox3, euthymic affect Orientation: alert, oriented to person, oriented to place, oriented to time and cooperative Speech: normal rate/rhythm/volume of speech Affect: + flat affect Discharge Data Allergies Allergy/AdvReac Type Severity Reaction Status Date / Time No Known Allergies Allergy Verified 12/05/18 20:20 Consultations 12/05/18 21:27 ED Decision to Admit Stat 12/05/18 23:53 Consult Case Management - Discharge Planning Routine 12/06/18 08:54 Consult Neurology Routine 12/06/18 13:55 Consult Orthopedic Surgery Routine 12/07/18 08:31 Consult Gastroenterology Routine 12/08/18 23:14 Consult Case Management - Discharge Planning Routine Ordered Studies 12/06/18 09:04 MR brain wo/w con Urgent MR lumbar spine wo con Urgent 12/07/18 10:29 US duplex portal hepatic veins Routine Hospital Course (1) Alcohol dependence: Had emotional lability, tremors at times, tachycardia and hypertension secondary to withdrawal, dehydration--> all significantly improved/resolved - Continued treating EtOH withdrawal with gabapentin taper, but will continue on a standing dose of gabapentin 300 mg p.o. twice daily to help with alcohol cravings after discharge - Interested in quitting drinking - Seen by case management for local resources. (2) Acute blood loss anemia: Had 2 episodes of melena on 12/07 witnessed by RNs. Hgb dropped from 15 to 10 and then has since stabilized on serial H/H. Had some heartburn on admission which continues intermittently. - Likely gastritis vs PUD - GI consult appreciated - no need for EGD currently -> Will get EGD and colonoscopy as outpatient. - Discharged on PPI BID (3) GI bleed: As above - Outpatient egd/colon for further evaluation of his anemia in 4-6 weeks pending sobriety. (4) Lumbar radiculopathy: With severe stenosis at L4-5 and L5-S1 with neuroforaminal compression. - Left foot drop and great toe dorsiflexion, subjective paresthesias - Some of his weakness had lightly improved in left LE. - Consulted ortho spine -> needs surgery to correct his acute left LE weakness, but not urgently and not while having ongoing medical issues. - Plan to f/u with ortho spine as outpt in 2 to 3 weeks. 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 Serum bicarb = 11, lactate = 4.5 on admission, now resolved. (8) Hyponatremia: Patient with hyponatremia on admission. Sodium = 127. Chloride = 92 on admission, now resolved, Na+ at 140. (9) Left leg weakness: L-spine MRI as above MRI brain no stroke Ortho SPine and Neuro consults appreciated (10) Chronic alcohol use: Patient with long-standing history of heavy alcohol use. History of seizures and withdrawal. With alcohol level of 243.8 on admission. He is having active withdrawal as above, no seizures-improving - [facility] protocol -Seizure precautions -Gabapentin per protocol and then standing dose as above -Convert IV folic acid to p.o. and reduce high-dose thiamine to 500 mg IV once daily and then eventually to 100 mg p.o. daily upon discharge (11) Hyperglycemia: Glucose = 188. Patient with no prior history of diabetes hemoglobin A1c only 5.4% (12) Thrombocytopenia: Platelets dropped and remaining stable at 80 7K, likely secondary to acute alcoholic hepatitis Portal vein ultrasound negative for portal vein thrombosis No evidence of bleeding -Follow CBC Total Time Total Time Spent Total Time Spent (In Minutes): 35 Discharge Plan Discharge Items Patient Disposition: Home - Self-Care Reason For Visit: ATAXIA,ETOH Discharge Diagnosis: Alcohol withdrawal Discharge Goals: Decrease discomfort, Learn about illness, Prevent disease and Therapeutic intervention Activity: Resume your previous activity Non-emergency contact: Primary Care Provider and Neurologist Call non-emergency contact if: your symptoms worsen Follow-up/Referrals: Chavez Ortiz MD [Physician] - (Please see Dr. Ortiz or Dr. Barrios in the office in 2 weeks for an EMG. This will help Dr. Harley better understand your nerve issues before he might continue with surgery.) Barry Camacho [Primary Care Provider] - Crow Harley DO [Physician] - (Please see Dr. Harley after you see neurology in the office.) Diet: Regular Addtl Provider Instructions: Mr. Smith, Alex were admitted to the hospital for alcohol consumption as well as trouble with walking. The trouble walking is multifactorial from some stenosis (narrowing) in your spine as well as damage to your nerves from drinking alcohol. To help improve your function and your health, please stop any alcohol consumption. You will need to follow up with neurology (Dr. Barrios or Dr. Ortiz) who can perform an EMG to help figure out your nerve issues and help continue your work-up for surgery. Prescriptions: New folic acid 1 mg tablet 1 mg PO DAILY Qty: 30 RF: 0 thiamine HCl (vitamin B1) 100 mg tablet 100 mg PO DAILY Qty: 30 RF: 0 pantoprazole 40 mg tablet,delayed release (DR/EC) 40 mg PO BID Qty: 60 RF: 0 gabapentin 300 mg capsule 300 mg PO BID Qty: 60 RF: 0 fluoxetine 20 mg capsule 20 mg PO DAILY Qty: 30 RF: 0 Discontinued ibuprofen 200 mg Tablet 800 mg PO Q8H PRN (Reason: Pain) RF: 0 Stand-Alone Forms: Call Back Authorization, [facility] Discharge Orders: Discharge Order (Routine); Ordered 12/09/18 Ordered By: Naeem Coley Admission Data Admit Date/Time: 12/05/18 22:15 Attending Provider: Naeem Coley Admit Provider: Norma Morales Primary Care Provider: Barry Camacho Other Providers: Chavez Ortiz ; Crow Harley ; Meg Reynolds ; Naeem Coley Service: Telemetry Other Interventions: Discharge Summary Assessment (RN) Last Done: 12/09/18 12:40 DC Date/Time DO NOT enter until pt leaves facility: 12/09/18 14:43
[2018-12-09] MEDS ORDERED: GABAPENTIN 300 MG CAP PO SCH (21:00)
== END 2018-12-09 14:43 | disposition home or self-care (01) | DRG 897 ==
LOC: ED 19:19 → 2S 22:15 → SUATTDRO 22:15 → 2S 23:26

== ENCOUNTER 2021-08-13 21:53 | Inpatient (IN) ==
[2021-08-13] MEDS ORDERED: LORazepam 2 MG/1 ML VIAL IV STA (22:02)
[2021-08-13] MEDS ORDERED: chlordiazePOXIDE HCl 25 MG CAP PO ONE (22:02)
[2021-08-13] MEDS ORDERED: MULTI-VITAMIN INFUSION 10 ML, THIAMINE HCL 100 MG, FOLIC ACID 1 MG in SODIUM CHLORIDE 0... IV ONE (22:02)
[2021-08-13] MEDS ORDERED: NICOTINE 14 MG/24 HR PATCH TD STA (22:11)
--- NOTE | 2021-08-13 22:11 | Emergency Department Note ---
History of Present Illness General Chief complaint: Alcohol Withdrawal Stated complaint: Detox Time Seen by Provider: 08/13/21 21:55 History of Present Illness Maximum Pain Intensity: 5 This 50-year-old alcoholic presents to the ER complaining of detox and abdominal discomfort Location: Upper abdomen Quality: Shaky Severity: Moderate Duration: Today Timing: Today Context: Patient requests detox and came in Modifying factors: better with alcohol; worse with activity Patient states he would like to go to detox. He feels shaky. He has had alcohol withdrawal seizures before. pt denies chest pain, n/v/d, fever/chills, cough, congestion. no hx of pancreatitis. No prior abdominal surgeries. Home Medications Medication Instructions Recorded Confirmed Type fluoxetine 20 mg capsule 20 mg PO QAM 08/13/21 08/13/21 History ibuprofen 200 mg tablet (Advil) 400 mg PO Q6H PRN 08/13/21 08/13/21 History multivitamin 1 tab PO DAILY 08/13/21 08/13/21 History Allergies Allergy/AdvReac Type Severity Reaction Status Date / Time No Known Allergies Allergy Verified 08/13/21 22:57 Past Med/Surg History Medical History (Updated 08/14/21 @ 03:58 by Jessica Bruce PA-C) 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 Chronic alcohol use Hypertension Sensory polyneuropathy Surgical History No pertinent past surgical history Family History (Updated 08/13/21 @ 23:56 by Norma Morales DO) Other Adopted Social History Smoking Status: Current every day smoker Tobacco Type: Cigarettes packs per day: 1; Cigarettes Per Day: 10; Second Hand Exposure: No; Hx Alcohol Use: Yes Alcohol type: hard liquor Alcohol Intake Frequency Comment: 1/2 to one 5th of vodka daily, some beer Hx Substance Use: No Preferred Language: Arabic Communication Ability: Effective Director Instrumentation Required: No Beliefs That Will Affect Care: None Current Living Situation: Alone current occupational status: previously employed 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 Feels Safe at Home: Yes Assistive Devices: Glasses Review of Systems A total of 10 systems reviewed and were otherwise negative Physical Exam Vital Signs Vital Signs - 24 hr 08/13/21 21:48 08/13/21 22:02 08/13/21 22:29 Temperature 37 C Temperature Source Oral Pulse Rate 123 H 122 H 124 H Pulse Rate from SpO2 Sensor 123 H Respiratory Rate 20 35 H 26 H Respiratory Effort / Characteristics Non-Labored Respiratory Depth Normal Blood Pressure 148/118 H 170/110 H Blood Pressure Mean 128 130 Blood Pressure Position Lying Pulse Oximetry 100 98 Oxygen Delivery Method Room Air Sepsis Recent Fever Within 48 Hours No Sepsis New/Unexplained Change in Mental Status No Sepsis Action Taken by Nursing No Action Required 08/13/21 22:30 08/13/21 23:00 08/13/21 23:20 Temperature Temperature Source Pulse Rate 120 H 114 H 113 H Pulse Rate from SpO2 Sensor 121 H 116 H 107 H Respiratory Rate 28 H 29 H 21 Respiratory Effort / Characteristics Respiratory Depth Blood Pressure 169/138 H 189/111 H Blood Pressure Mean 148 137 Blood Pressure Position Pulse Oximetry 98 90 100 Oxygen Delivery Method Sepsis Recent Fever Within 48 Hours Sepsis New/Unexplained Change in Mental Status Sepsis Action Taken by Nursing 08/13/21 23:30 Temperature Temperature Source Pulse Rate 108 H Pulse Rate from SpO2 Sensor 107 H Respiratory Rate 27 H Respiratory Effort / Characteristics Respiratory Depth Blood Pressure 171/118 H Blood Pressure Mean 135 Blood Pressure Position Pulse Oximetry 99 Oxygen Delivery Method Sepsis Recent Fever Within 48 Hours Sepsis New/Unexplained Change in Mental Status Sepsis Action Taken by Nursing VITALS: Vitals are noted on the nurse's note and reviewed by myself. Vital signs tachycardic. GENERAL: White male tremulous, in no acute distress, nondiaphoretic, well- developed well-nourished. SKIN: The skin was without rashes, erythema, edema, or bruising. There is no tenting of the skin. Capillary reflex less than 2 seconds. HEAD: Normocephalic atraumatic. EARS: External auditory canals clear, EYES: Pupils equal round and reactive to light and accommodation. Conjunctivae with mild injection, sclerae without icterus. Extraocular movements intact. NOSE: Patent, turbinates without inflammation or discharge. No sinus tenderness. MOUTH: Mucous membranes moist. Pharynx without erythema or exudate. Uvula midline. Airway patent. Tongue does not deviate. NECK: Supple without nuchal rigidity. No lymphadenopathy. No thyromegaly. Cervical spine is nontender. No JVD. HEART: Mildly tachycardic rate and rhythm LUNGS: Clear to auscultation bilaterally without wheezes, rales or rhonchi. No retractions or accessory muscle use. ABDOMEN: Positive bowel sounds x 4. Normal tympanic percussion. Soft, tender upper abdomen, without masses or organomegaly. Love sign negative. No guarding or rebound tenderness. No CVA tenderness MUSCULOSKELETAL: No muscle atrophy, erythema, or edema noted. NEURO: Patient was alert and oriented to person place and time. Normal sensation to light and sharp touch. No focal neurological deficits. Course Administered Medications Al Hydrox/Mg Hydrox/Simethicone (Aluminum/Magnesium Susp 30 Ml Udc) 15 ml PO Q6H PRN PRN Reason: heartburn Stop: 09/13/21 01:09 Last Admin: 08/14/21 02:26 Dose: 15 ml Documented by: [id number] Lactated Ringer's (Lr) 1,000 mls @ 200 mls/hr IV .Q5H SAMMY Stop: 08/14/21 16:09 Last Admin: 08/14/21 01:36 Dose: 200 mls/hr Documented by: [id number] Thiamine HCl 100 mg/ Syringe 10 mls @ 2 mls/min IV QAM [facility] Stop: 09/13/21 01:09 Last Admin: 08/14/21 01:39 Dose: 2 mls/min Documented by: [id number] Folic Acid 1 mg/ Syringe 10 mls @ 5 mls/min IV QAM [facility] Stop: 09/13/21 01:09 Last Admin: 08/14/21 01:39 Dose: 5 mls/min Documented by: [id number] Lorazepam (Lorazepam 2 Mg/1 Ml Vial) 2 mg IV UD PRN; Protocol PRN Reason: EtOH Withdrawl AWSS Score 6,7 Stop: 09/13/21 01:09 Last Admin: 08/14/21 02:26 Dose: 2 mg Documented by: [id number] Morphine Sulfate (Morphine Sulfate 2 Mg/Ml Carp) 1 mg IV Q3H PRN PRN Reason: Pain (1,2,3,4,5) & Pre PT Stop: 08/28/21 01:09 Last Admin: 08/14/21 01:47 Dose: 1 mg Documented by: [id number] Discontinued Medications Al Hydrox/Mg Hydrox/Simethicone (Gi Cocktail Ed Use) 1 dose PO ONE ONE Stop: 08/13/21 23:02 Last Admin: 08/13/21 23:34 Dose: 1 dose Documented by: [id number] Chlordiazepoxide HCl (Chlordiazepoxide Hcl 25 Mg Cap) 50 mg PO NOW ONE Stop: 08/13/21 22:03 Last Admin: 08/13/21 22:21 Dose: 50 mg Documented by: [id number] Sodium Chloride (Nss 1000ml) 1,000 mls @ 999 mls/hr IV .Q1H1M SAMMY Stop: 08/13/21 23:15 Last Infusion: 08/13/21 23:48 Dose: 0 mls/hr Documented by: [id number] Admin: 08/13/21 22:21 Dose: 999 mls/hr Documented by: [id number] Multivitamins 10 ml/ Thiamine HCl 100 mg/ Folic Acid 1 mg/Sodium Chloride 1,011.2 mls @ 1,011.2 mls/hr IV .Q1H ONE Stop: 08/13/21 23:01 Last Infusion: 08/14/21 01:21 Dose: 0 mls/hr Documented by: [id number] Admin: 08/13/21 23:34 Dose: 1,011.2 mls/hr Documented by: [id number] Pantoprazole Sodium 40 mg/ (Syringe) 10 mls @ 5 mls/min IV NOW ONE Stop: 08/13/21 23:02 Last Admin: 08/13/21 23:34 Dose: 5 mls/min Documented by: [id number] Famotidine (Pepcid 20mg Iv Push) 20 mg in 5 mls @ 2.5 mls/min IV NOW STA Stop: 08/13/21 23:02 Last Admin: 08/13/21 23:34 Dose: 2.5 mls/min Documented by: [id number] Sodium Chloride (Nss 1000ml) 1,000 mls @ 999 mls/hr IV .Q1H1M ONE Stop: 08/14/21 00:07 Last Admin: 08/13/21 23:48 Dose: 999 mls/hr Documented by: [id number] Ioversol (Optiray 320 100ml) 94 ml IV ONCE ONE Stop: 08/13/21 23:17 Last Admin: 08/13/21 23:16 Dose: 94 ml Documented by: [id number] Lorazepam (Lorazepam 2 Mg/1 Ml Vial) 1 mg IV NOW STA Stop: 08/13/21 22:03 Last Admin: 08/13/21 22:22 Dose: 1 mg Documented by: [id number] Morphine Sulfate (Morphine Sulfate 4 Mg/Ml 1 Ml Carp\Vial) 4 mg IV NOW STA Stop: 08/13/21 23:07 Last Admin: 08/13/21 23:35 Dose: 4 mg Documented by: [id number] Nicotine (Nicotine 14 Mg/24 Hr Patch) 14 mg TD NOW STA Stop: 08/13/21 22:12 Last Admin: 08/13/21 22:21 Dose: 14 mg Documented by: [id number] Medical Decision Making Medical Records Attestation: I reviewed the patient's medical records. Home Medications Current Medication List: was personally reviewed by me Laboratory Data Attestation: I reviewed the patient's lab results. Result diagrams: 08/13/21 22:03 08/13/21 22:03 Lab Results 08/13/21 08/13/21 08/13/21 Range/Units 22:03 22:03 22:03 WBC 13.02 H (4.8-10.8) K/uL RBC 4.42 L (4.7-6.1) M/uL Hgb 16.0 (14.0-18.0) g/dL Hct 47.1 (42-52) % MCV 106.6 H (80-100) fL MCH 36.2 H (25-34) pg MCHC 34.0 (32-36) g/dL RDW Std Deviation 58.3 H (36.4-46.3) fL RDW Coeff of Arturo 14.8 H (11.5-14.5) % Plt Count 265 (130-400) K/uL MPV 9.7 (7.4-10.4) fL Immature Gran % (Auto) 0.4 % Neut % (Auto) 91.2 % Lymph % (Auto) 5.6 % [place] % (Auto) 2.7 % Eos % (Auto) 0.0 % Baso % (Auto) 0.1 % Neut # (Auto) 11.88 H (1.4-6.5) K/uL Lymph # (Auto) 0.73 L (1.2-3.4) K/uL [place] # (Auto) 0.35 (0.11-0.59) K/uL Eos # (Auto) 0.00 (0-0.5) K/uL Baso # (Auto) 0.01 (0-0.2) K/uL Immature Gran # (Auto) 0.05 H (0.00-0.02) K/uL Sodium 128 L (136-145) mmol/L Potassium 4.5 (3.5-5.1) mmol/L Chloride 93 L (98-107) mmol/L Carbon Dioxide 10 L (21-32) mmol/L Anion Gap 25 H (3-11) BUN 10 (6-23) mg/dl Creatinine 0.84 (0.6-1.4) mg/dl Est Cr Clr Drug Dosing 121.6 ml/min Est GFR ( Amer) 117.5 ml/min Est GFR (Non-Af Amer) 101.4 ml/min BUN/Creatinine Ratio 11.9 (10-20) Glucose 202 H (70-99(Fasting)) mg/dl Calcium 9.4 (8.5-10.1) mg/dl Phosphorus (2.5-4.9) mg/dl Magnesium 1.9 (1.7-2.4) mg/dl Total Bilirubin 1.6 H (0.2-1.0) mg/dl AST 167 H (13-39) U/L ALT 121 H (7-52) U/L Alkaline Phosphatase 99 (34-104) U/L Total Creatine Kinase 72 (30-223) U/L Troponin I High Sens (0-20) pg/ml Total Protein 8.3 (6.0-8.3) gm/dl Albumin 4.8 (3.4-5.0) gm/dl Globulin 3.5 (2.5-4.0) gm/dl Albumin/Globulin Ratio 1.4 (0.9-2) Lipase 1709 H (11-82) U/L TSH 2.448 (0.300-4.500) uIu/ml Ethyl Alcohol mg/dL (<10.0) mg/dl SARS-CoV-2, RNA, NAAT (NEGATIVE) 08/13/21 08/13/21 08/13/21 Range/Units 22:03 22:41 22:44 WBC (4.8-10.8) K/uL RBC (4.7-6.1) M/uL Hgb (14.0-18.0) g/dL Hct (42-52) % MCV (80-100) fL MCH (25-34) pg MCHC (32-36) g/dL RDW Std Deviation (36.4-46.3) fL RDW Coeff of Arturo (11.5-14.5) % Plt Count (130-400) K/uL MPV (7.4-10.4) fL Immature Gran % (Auto) % Neut % (Auto) % Lymph % (Auto) % [place] % (Auto) % Eos % (Auto) % Baso % (Auto) % Neut # (Auto) (1.4-6.5) K/uL Lymph # (Auto) (1.2-3.4) K/uL [place] # (Auto) (0.11-0.59) K/uL Eos # (Auto) (0-0.5) K/uL Baso # (Auto) (0-0.2) K/uL Immature Gran # (Auto) (0.00-0.02) K/uL Sodium (136-145) mmol/L Potassium (3.5-5.1) mmol/L Chloride (98-107) mmol/L Carbon Dioxide (21-32) mmol/L Anion Gap (3-11) BUN (6-23) mg/dl Creatinine (0.6-1.4) mg/dl Est Cr Clr Drug Dosing ml/min Est GFR ( Amer) ml/min Est GFR (Non-Af Amer) ml/min BUN/Creatinine Ratio (10-20) Glucose (70-99(Fasting)) mg/dl Calcium (8.5-10.1) mg/dl Phosphorus 3.3 (2.5-4.9) mg/dl Magnesium (1.7-2.4) mg/dl Total Bilirubin (0.2-1.0) mg/dl AST (13-39) U/L ALT (7-52) U/L Alkaline Phosphatase (34-104) U/L Total Creatine Kinase (30-223) U/L Troponin I High Sens 9.6 (0-20) pg/ml Total Protein (6.0-8.3) gm/dl Albumin (3.4-5.0) gm/dl Globulin (2.5-4.0) gm/dl Albumin/Globulin Ratio (0.9-2) Lipase (11-82) U/L TSH (0.300-4.500) uIu/ml Ethyl Alcohol mg/dL < 10.0 (<10.0) mg/dl SARS-CoV-2, RNA, NAAT NEGATIVE (NEGATIVE) Imaging Data Attestation: I personally reviewed and interpreted this imaging study as follows: MDM Narrative Prior records/ancillary studies reviewed and summarized above. Nursing notes reviewed. Additional history obtained from EMS. The patient's history was concerning for alcohol withdrawal and abdominal pain. Differential diagnosis: Etiologies such as metabolic, infection, hypo/hyperglycemia, electrolyte abnormalities, cardiac sources, intracerebral event, toxicologic, neurologic, as well as others were entertained. Physical examination: As above. ER treatment provided: IV Lock An order was placed for continuous cardiac monitoring. The monitor shows a rate of 60-1 50 with a sinus rhythm. IV fluids, banana bag, Ativan, Librium On reassessment the patient felt better. Diagnostics interpretation by me: ECG: Ordered for upper abdominal pain EKG: Poor baseline, normal sinus, normal intervals, no acute ST-T wave changes, rate of 123. Impression sinus tachycardia poor baseline interpreted by myself I think arrhythmia is unlikely. EKG shows normal sinus rhythm with no interval abnormalities such as QT prolongation or WPW. There are no findings to suggest Brugada syndrome. Cardiac monitoring in the emergency department reveals no tachycardic or bradycardic dysrhythmia. Hypertrophic cardiomyopathy was considered but there are no clear historical elements pointing toward this. EKG is not suggestive. The QRS voltage is not extremely large and there are no suggestive Q waves. The labs revealed elevated lipase Negative troponin Imaging studies: Preliminary Findings Only See Final Report For Complete Findings CT ABDOMEN & PELVIS With Contrast: Edema in the peripancreatic fat likely representing acute pancreatitis. There is no evidence of pancreatic necrosis or pancreatic ductal dilatation. No significant abnormal loculated fluid collection to indicate pseudocyst. Severe fatty infiltration of the liver. No other acute findings. Radiologist: dUay Bauer MD Consultation: A consultation was placed with the hospitalist. The case was discussed and diagnostics were reviewed. The patient was evaluated in the ER for further treatment. Exam and history seem consistent with pancreatitis and a patient with alcoholism who requests detox. Medicine is consulted. He will be admitted. Patient was medicated as above. By the evaluation outlined above emergent etiologies such as infection, electrolyte abnormalities, cardiac sources, intracerebral event, neurologic, abnormalities blood glucose, metabolic, as well as others were deemed relatively unlikely. The pt informed about the findings as listed above. All questions were answered and pleased with the treatment. The chart was completed utilizing [id number] Speech voice recognition software. Grammatical errors, random word insertions, pronoun errors, and incomplete sentences are an occassional consequence of this system due to software limitations, ambient noise, and hardware issues. Any formal questions or concerns about the content, text, or information contained within the body of this dictation should be directly addressed to the physician floor covering printer assistant for clarification. Impression & Plan Acute pancreatitis, Alcohol withdrawal, Alcohol abuse, Alcoholic ketoacidosis Discharge Plan Visit Data Chief Complaint: Alcohol Withdrawal Stated Complaint: Detox ED Provider: Chauncey Gee ED Midlevel Provider: Jessica Bruce Discharge Problem: Acute pancreatitis, Alcohol withdrawal, Alcohol abuse, Alcoholic ketoacidosis Patient Disposition: Admitted As Inpatient Condition: Fair Discharge Instructions Interventions: ED Discharge Assessment Last Done: 08/14/21 00:30 Discharge Problem: Acute pancreatitis Qualifiers: Pancreatitis type: alcohol induced Acute pancreatitis complication: unspecified Qualified Code(s): K85.20 - Alcohol induced acute pancreatitis without necrosis or infection
[2021-08-13] MEDS ORDERED: SODIUM CHLORIDE 0.9% 1000ML 1,000 ML IV SCH (22:15)
[2021-08-13 22:19] LABS: Basophils # (auto) 0.01 K/uL (0-0.2); Basophils % (auto) 0.1 %; Hematocrit (blood only) 47.1 % (42-52); Immature Granulocytes # (auto) 0.05 K/uL (0.00-0.02); Immature Granulocytes % (auto) 0.4 %; Lymphocytes # (auto) 0.73 K/uL (1.2-3.4); Lymphocytes % (auto) 5.6 %; Mean Corpuscular Hemoglobin 36.2 pg (25-34); Mean Corpuscular Volume 106.6 fL (80-100); Mean Platelet Volume 9.7 fL (7.4-10.4); Monocytes # (auto) 0.35 K/uL (0.11-0.59); Monocytes % (auto) 2.7 %; Neutrophils # (auto) 11.88 K/uL (1.4-6.5); Neutrophils % (auto) 91.2 %; Platelet Count 265 K/uL (130-400); RDW Coefficient of Variation 14.8 % (11.5-14.5); RDW Standard Deviation 58.3 fL (36.4-46.3); Red Blood Count 4.42 M/uL (4.7-6.1); White Blood Count 13.02 K/uL (4.8-10.8)
[2021-08-13 22:36] LABS: BUN Creatinine Ratio 11.9 (10-20); Calcium 9.4 mg/dl (8.5-10.1); Creatinine Clr Calc Pharmacy 121.6 ml/min; Est GFR (African American) 117.5 ml/min; Est GFR (Non-African American) 101.4 ml/min; Potassium 4.5 mmol/L (3.5-5.1)
[2021-08-13 22:53] LABS: Albumin Globulin Ratio 1.4 (0.9-2); Albumin Level 4.8 gm/dl (3.4-5.0); Bilirubin,Total 1.6 mg/dl (0.2-1.0); Globulin 3.5 gm/dl (2.5-4.0); Magnesium 1.9 mg/dl (1.7-2.4); Total Protein 8.3 gm/dl (6.0-8.3)
[2021-08-13] MEDS ORDERED: PANTOprazole 40 MG in SYRINGE 0 ML IV ONE (23:01)
[2021-08-13] MEDS ORDERED: GI COCKTAIL ED USE PO ONE (23:01)
[2021-08-13] MEDS ORDERED: FAMOTIDINE 20MG IV PUSH 20 MG/5 ML SYR IV STA (23:01)
[2021-08-13] MEDS ORDERED: MoRPHine SULFATE 4 MG/ML 1 ML CARP\\VIAL IV STA (23:06)
[2021-08-13] MEDS ORDERED: SODIUM CHLORIDE 0.9% 1000ML 1,000 ML IV ONE (23:07)
[2021-08-13] MEDS ORDERED: OPTIRAY 320 100ml IV ONE (23:16)
[2021-08-13] MEDS ORDERED: chlordiazePOXIDE ALCOHOL WITHDRAWL 25MG PO STA (23:17)
[2021-08-13 23:43] LABS: Troponin I High Sensitivity 9.6 pg/ml (0-20)
[2021-08-13 23:47] LABS: Phosphorus 3.3 mg/dl (2.5-4.9)
[2021-08-13 23:58] LABS: Base Excess VBG -15.1 mEq/L; HCO3 VBG 12 mmol/L; PCO2 VBG 30 mmHg (38-50); PO2 VBG 70 mmHg; pH VBG 7.21 (7.36-7.41)
[2021-08-14 00:04] LABS: Oxygen Saturation VBG < 60.0 %
--- NOTE | 2021-08-14 00:15 | History & Physical Report ---
Date of Service August 13, 2021 Assessment & Plan (1) Alcohol withdrawal: Plan: 50yo male with longstanding history of EtOH abuse, remote history of withdrawal seizure presenting with EtOH withdrawal. Patient drinks approximately 13-17 drinks/day. Last drink 08/14/21 at 19:00. Mild withdraw symptoms presently with tachycardia and tremors. Patient has been given a banana bag as well as Librium 50mg PO and Ativan 1mg IV in the ER -Admit to PCU -AWSS with IV Ativan as needed (increased to 2mg, 3mg, 4mg doses based on CIWA score) -Continue Librium taper - will place on lower dosage -Thiamine 100mg IV daily -Folate 1mg IV daily -Consider Psychiatry consultation re: rehabilitation (2) Acute pancreatitis: Plan: Patient with epigastric abdominal pain, elevated Lipase to 1709. Most likely EtOH Pancreatitis -Keep NPO -IVF with LR at 200mL/hr x 3 liters -Morphine as needed for pain -Zofran as needed for nausea -Continuous pulse oximetry as patient will be receiving Benzos + Opiates, higher risk for respiratory depression (3) Alcoholic hepatitis: Plan: Patient with acute alcoholic hepatitis. DQT=101, FLV=718, Tbili=1.6, PT= Patient with normal platelets MDF = 4.4. Good prognosis. No indication for treatment with steroids -Encourage abstinence from EtOH -Repeat LFTs in AM (4) Metabolic acidosis: Plan: Patient with gapped metabolic acidosis with pH=7.21, pCO2=30, serum HCO3=10, AG=25. Normal renal function, Lactate=1.6 Suspect alcoholic ketoacidosis. Higher than expected pCO2 possible mile respiratory acidosis as well. Patient presented similarly in the past. He does have mildly elevated non-fasting BSG of 202 with no documented history of diabetes. -Repeat chemistry in AM -Check HgbA1C (5) Anxiety: Plan: Chronic -Continue Fluoxetine 20mg po daily (6) Hyponatremia: Plan: In setting of EtOH abuse. Patient appears euvolemic on exam -IVF for pancreatitis -Repeat chemistry in AM Plan: F/E/N -LR at 200mL/hr x 3 liters ordered, electrolytes WNL with exception of Na as discussed, NPO for now Ppx - Low risk for DVT Code - Full per discussion with patient Dispo - Admit to PCU - EtOH withdrawal, acute alcoholic pancreatitis, alcoholic hepatitis and anion gapped metabolic acidosis History of Present Illness Chief Complaint: abdominal pain, SOB, heartburn, weakness and alcohol withdrawal Primary Care Provider: Barry Camacho MD Uday Smith is a 50yo male with history of HTN, EtOH abuse presenting with several complaints. Patient reports one day of band-like upper abdominal pain. Pain is dull in nature, 8/10 in severity. No radiation. Also with nausea and 3 episodes on non-bloody emesis with dry heaving. Patient also endorses shortness of breath, generalized weakness and heartburn x 1 day. Patient with history of EtOH abuse and has been hospitalized in the past for withdrawal. He has history of EtOH withdrawal seizures many years ago. He reports drinking approximately one 750mL bottle of vodka daily. If he buys a handle of vodka it lasts him about 3 days (appx 13 - 17 drinks daily). He has been trying to cut back. He last drank a bottle of vodka on 08/12/21. Today 08/13/21 he only drank 4 beers and some water. Last drink 08/13/21 at 19:00. He began feeling some withdrawal symptoms in form of tremors and shakes this AM. In the ER patient noted to be tremulous, complaining of heart burn. No additional complaints at this time. He denies fever but has been having some chills. Denies chest pain, palpitations, dysuria. He had one episode of non- bloody diarrhea prior to coming in. 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 Chronic alcohol use Hypertension Sensory polyneuropathy Surgical History No pertinent past surgical history Family History Other Adopted Social History Smoking Status: Current every day smoker Tobacco Type: Cigarettes packs per day: 1; Hx Alcohol Use: Yes Alcohol type: beer and hard liquor Alcohol Intake Frequency Comment: 1/2 to one 5th of vodka daily, some beer Hx Substance Use: No Preferred Language: Japanese Communication Ability: Effective Crew Supervisor Required: No Beliefs That Will Affect Care: None Current Living Situation: Alone current occupational status: previously employed current occupation: Recently lost job working in an [employer] service Feels Safe at Home: Yes Assistive Devices: Walker Review of Systems Review of Systems: All systems reviewed & are unremarkable except as noted in HPI & below Physical Exam Physical Exam: General: patient mildly tremulous, NAD, non-toxic in appearance, AA&O x 4 Skin: warm, dry, intact, no rashes or lesions HEENT: NC/AT, PERRL, EOMI, no scleral icterus, conjunctiva without injection, external ear normal to inspection and nontender, nares patent, moist mucus membranes, mild sublingual jaundice present, dentition intact, no oropharyngeal lesions, neck supple, trachea midline, no LAD, no thyromegaly, no JVD Heart: +S1/S2, regular, tachycardic, no m/r/g Lungs: equal air entry bilaterally, no rales/rhonchi/wheezes Abd: +BS, soft, midly distended, tympanic to percussion, tender in epigastric region, no masses/organomegaly/ascites Ext: warm, 2+ pulses in UE/LE bilaterally, no clubbing/cyanosis or edema Neuro: nonfocal, patient AA&O x 4, speech intact, no facial droop, moving all extremities on command with equal strength 5/5, bilateral LE sensory neuropathy to knees (baseline finding) Results & Data Results & Data ([facility]) Vital Signs (Past 12 Hours) Vital Signs Temp Pulse Resp BP Pulse Ox 08/13/21 21:48 37 C 123 H 20 148/118 H 100 Laboratory Results Laboratory Results WBC 13.02 K/uL (4.8-10.8) H 08/13/21 22:03 RBC 4.42 M/uL (4.7-6.1) L 08/13/21 22:03 Hgb 16.0 g/dL (14.0-18.0) 08/13/21 22:03 Hct 47.1 % (42-52) 08/13/21 22:03 MCV 106.6 fL (80-100) H 08/13/21 22:03 MCH 36.2 pg (25-34) H 08/13/21 22:03 MCHC 34.0 g/dL (32-36) 08/13/21:03 RDW Std Deviation 58.3 fL (36.4-46.3) H 08/13/21: RDW Coeff of Arturo 14.8 % (11.5-14.5) H 08/13/21 22: Plt Count 265 K/uL (130-400) 08/13/21: MPV 9.7 fL (7.4-10.4) 08/13/21 22: Immature Gran % (Auto) 0.4 % 08/13/21 22:03 Neut % (Auto) 91.2 % 08/13/21 22:03 Lymph % (Auto) 5.6 % 08/13/21 22: [place] % (Auto) 2.7 % 08/13/21 22:03 Eos % (Auto) 0.0 % 08/13/21 22:03 Baso % (Auto) 0.1 % 08/13/21 22:03 Neut # (Auto) 11.88 K/uL (1.4-6.5) H 08/13/21 22:03 Lymph # (Auto) 0.73 K/uL (1.2-3.4) L 08/13/21 22: [place] # (Auto) 0.35 K/uL (0.11-0.59) 08/13/21 22:03 Eos # (Auto) 0.00 K/uL (0-0.5) 08/13/21 22:03 Baso # (Auto) 0.01 K/uL (0-0.2) 08/13/21 22: Immature Gran # (Auto) 0.05 K/uL (0.00-0.02) H 08/13/21 22:03 Sodium 128 mmol/L (136-145) L 08/13/21 22:03 Potassium 4.5 mmol/L (3.5-5.1) 08/13/21 22:03 Chloride 93 mmol/L (98-107) L 08/13/21 22:03 Carbon Dioxide 10 mmol/L (21-32) L 08/13/21 22:03 Anion Gap 25 (3-11) H 08/13/21 22:03 BUN 10 mg/dl (6-23) 08/13/21 22:03 Creatinine 0.84 mg/dl (0.6-1.4) 08/13/21 22:03 Est Cr Clr Drug Dosing 121.6 ml/min 08/13/21 22:03 Est GFR ( Amer) 117.5 ml/min 08/13/21 22:03 Est GFR (Non-Af Amer) 101.4 ml/min 08/13/21 22:03 BUN/Creatinine Ratio 11.9 (10-20) 08/13/21 22:03 Glucose 202 mg/dl (70-99(Fasting)) H 08/13/21 22:03 Calcium 9.4 mg/dl (8.5-10.1) 08/13/21 22:03 Phosphorus 3.3 mg/dl (2.5-4.9) 08/13/21 22:03 Magnesium 1.9 mg/dl (1.7-2.4) 08/13/21 22:03 Total Bilirubin 1.6 mg/dl (0.2-1.0) H 08/13/21 22:03 AST 167 U/L (13-39) H 08/13/21 22:03 ALT 121 U/L (7-52) H 08/13/21 22:03 Alkaline Phosphatase 99 U/L (34-104) 08/13/21 22:03 Total Creatine Kinase 72 U/L (30-223) 08/13/21 22:03 Troponin I High Sens 9.6 pg/ml (0-20) 08/13/21 22:03 Total Protein 8.3 gm/dl (6.0-8.3) 08/13/21 22:03 Albumin 4.8 gm/dl (3.4-5.0) 08/13/21 22:03 Globulin 3.5 gm/dl (2.5-4.0) 08/13/21 22:03 Albumin/Globulin Ratio 1.4 (0.9-2) 08/13/21 22:03 Lipase 1709 U/L (11-82) H 08/13/21 22:03 TSH 2.448 uIu/ml (0.300-4.500) 08/13/21 22:03 Ethyl Alcohol mg/dL < 10.0 mg/dl (<10.0) 08/13/21 22:41 Diagnostic Findings CXR - no acute findings CT Abdomen and pelvis with IV contrast performed. Results pending Code Status & VTE Plan VTE Prophylaxis Plan VTE Prophylaxis will be ordered: Yes PG Care Time/CCT Total # of Minutes Spent Total Time Spent with Patient: Total time spent is greater than 50% in coordination of care (as documented) at patient's floor/unit and/or counseling patient: Coding Level of Care Code 02075 Initial Inpt Care Lvl 3 Diagnoses Anxiety F41.9 Alcohol withdrawal F10.239 Hyponatremia E87.1 Metabolic acidosis E87.2 Acute pancreatitis K85.90 Alcoholic hepatitis K70.10
[2021-08-14 00:16] LABS: INR 1.1 (0.9-1.1); Prothrombin Time 11.6 Seconds (9.0-12.0)
[2021-08-14] MEDS ORDERED: LORazepam 2 MG/1 ML VIAL IV PRN ×2 (01:10)
[2021-08-14] MEDS ORDERED: ONDANSETRON INJ 2 MG/ML 2 ML VIAL IV PRN (01:10)
[2021-08-14] MEDS ORDERED: ATIVAN IV ALCOHOL WITHDRAWL IV PRN (01:10)
[2021-08-14] MEDS: LACTATED RINGER'S 1,000 ML IV SCH ×3 (01:36→11:45)
[2021-08-14] MEDS: THIAMINE HCL 100 MG in SYRINGE 9 ML IV SCH ×2 (01:39→07:36)
[2021-08-14] MEDS: FOLIC ACID 1 MG in SYRINGE 9.8 ML IV SCH ×2 (01:39→07:37)
[2021-08-14] MEDS: MoRPHine SULFATE 2 MG/ML CARP IV PRN ×6 (01:47→20:34)
[2021-08-14] MEDS: LORazepam 2 MG/1 ML VIAL IV PRN ×2 (02:26→04:31)
[2021-08-14] MEDS: ALUMINUM/MAGNESIUM SUSP 30 ML UDC PO PRN ×2 (02:26→09:03)
[2021-08-14] MEDS: chlordiazePOXIDE HCl 25 MG CAP PO SCH ×4 (04:18→20:33)
[2021-08-14 04:43] LABS: Hematocrit (blood only) 40.6 % (42-52); Hemoglobin 13.9 g/dL (14.0-18.0); Immature Granulocytes # (auto) 0.02 K/uL (0.00-0.02); Immature Granulocytes % (auto) 0.2 %; Lymphocytes # (auto) 0.66 K/uL (1.2-3.4); Lymphocytes % (auto) 6.1 %; Mean Corpuscular Hemoglobin 36.1 pg (25-34); Mean Corpuscular Hgb Conc 34.2 g/dL (32-36); Mean Corpuscular Volume 105.5 fL (80-100); Mean Platelet Volume 9.8 fL (7.4-10.4); Monocytes # (auto) 0.54 K/uL (0.11-0.59); Neutrophils # (auto) 9.56 K/uL (1.4-6.5); Neutrophils % (auto) 88.7 %; Platelet Count 233 K/uL (130-400); RDW Coefficient of Variation 14.8 % (11.5-14.5); RDW Standard Deviation 57.7 fL (36.4-46.3); Red Blood Count 3.85 M/uL (4.7-6.1); White Blood Count 10.78 K/uL (4.8-10.8)
[2021-08-14 05:01] LABS: Albumin Level 4.1 gm/dl (3.4-5.0); BUN Creatinine Ratio 14.5 (10-20); Bilirubin Direct 0.8 mg/dl (0-0.2); Bilirubin,Total 1.7 mg/dl (0.2-1.0); Calcium 8.2 mg/dl (8.5-10.1); Creatinine Clr Calc Pharmacy 163.6 ml/min; Est GFR (African American) 133.1 ml/min; Est GFR (Non-African American) 114.9 ml/min; Potassium 4.5 mmol/L (3.5-5.1); Total Protein 6.9 gm/dl (6.0-8.3)
[2021-08-14 05:02] LABS: Appearance Urine Clear (Clear); Bacteria Urine Automated Negative (Negative); Bilirubin Urine Negative (Negative); Blood Urine 1+ (Negative); Cast Urine Automated 0 /lpf (0-5); Color Urine Yellow; Glucose Urine UA Negative (Negative); Ketones Urine 4+ (Negative); Leukocyte Esterase Urine Negative (Negative); Nitrite Urine Negative (Negative); Protein Urine 1+ (Negative); RBC Urine Automated 0-4 /hpf (0-4); Specific Gravity Urine 1.042 (1.000-1.030); Urobilinogen Urine Negative (Negative); pH Urine 5.5 (4.5-7.5)
[2021-08-14] MEDS: FAMOTIDINE 20 MG in SYRINGE 3 ML IV SCH (07:36)
[2021-08-14] MEDS: FLUoxetine HCL 20 MG CAP PO SCH (07:37)
[2021-08-14] MEDS: NICOTINE 14 MG/24 HR PATCH TD SCH (07:37)
--- NOTE | 2021-08-14 08:05 | CT Scan Report ---
ABDOMEN AND PELVIS CT WITH IV CONTRAST CT DOSE: 823.30 mGy.cm HISTORY: Acute generalized abdominal pain mid abd pain, etoh abuse TECHNIQUE: Multiaxial CT images of the abdomen and pelvis were performed following the IV administrat ion of 94 cc of Optiray, A dose lowering technique was utilized adhering to the principles of ALARA. COMPARISON STUDY: CT abdomen pelvis 05/23/2012 FINDINGS: Clear lung bases. No pneumatosis or pneumoperitoneum. Coronary artery calcifications. Mild cardiomega ly. Diminutive spleen. Thickening of the adrenal glands suggestive of hyperplasia. Unremarkable gallb ladder. Severe hepatic steatosis. No evidence of cirrhosis. Patency of the hepatic and portal veins. The splenic vein also appears patent. Mild to moderate interstitial and peripancreatic inflammation w ith trace free fluid within the lesser sac. Homogeneous enhancement of the pancreatic parenchyma. No pancreatic ductal dilation or pancreatic mass identified. No biliary ductal dilation. Unremarkable kidneys. No hydronephrosis. Urinary bladder and prostate appear to be within normal limi ts. Atherosclerosis of the aorta without aneurysm. No lymphadenopathy. Moderate distal esophageal wal l thickening with tiny hiatal hernia and mild adjacent inflammatory stranding. Mild wall thickening o f the duodenum. No bowel obstruction. Mild colonic diverticulosis. Normal appendix. Unremarkable soft tissues. Degenerative changes of the spine, pelvis and hips. IMPRESSION: 1. Acute pancreatitis. No pancreatic ductal dilation, acute peripancreatic fluid collection or eviden ce of pancreatic necrosis. 2. Wall thickening of the distal esophagus with trace adjacent free fluid is suggestive of esophagiti s. 3. Mild wall thickening the duodenum is likely reactive. 4. No bowel obstruction. 5. Severe hepatic steatosis. ACT 112: Negative or not required by law. The above report was generated using voice recognition software. It may contain grammatical, syntax o r spelling errors. Electronically signed by: Seymour Corcoran M.D. 08/14/2021 8:03 AM
--- NOTE | 2021-08-14 08:13 | XRay Report ---
XR chest 1V portable CLINICAL HISTORY: Weakness. COMPARISON STUDY: Chest radiograph December 05, 2018. FINDINGS: Lung volumes are normal. Lungs are clear. There is no pneumothorax or pleural effusion. Car diac size is normal. Mediastinal contours are normal. There is no evidence for pulmonary edema. IMPRESSION: No acute cardiopulmonary findings. ACT 112: Negative or not required by law. Electronically signed by: Jcaobo Land M.D. 08/14/2021 8:12 AM
[2021-08-14] MEDS ORDERED: GABAPENTIN 1200MG ALCOHOL WITHDRAWAL LOAD PO STA (08:44)
[2021-08-14] MEDS ORDERED: GABAPENTIN 600 MG TAB PO ONE (09:00)
--- NOTE | 2021-08-14 11:22 | Hospitalist Progress Note ---
Date of Service August 14, 2021 Assessment & Plan (1) Alcohol withdrawal: Plan: 50yo male with longstanding history of EtOH abuse, remote history of withdrawal seizure presenting with EtOH withdrawal. Patient drinks approximately 13-17 drinks/day. Last drink 08/14/21 at 19:00. Mild withdraw symptoms presently with tachycardia and tremors. Patient has been given a banana bag as well as Librium 50mg PO and Ativan 1mg IV in the ER -Admitted to PCU -AWSS with IV Ativan as needed (increased to 2mg, 3mg, 4mg doses based on CIWA score) -Continue Librium taper - will place on lower dosage -Thiamine 100mg IV daily -Folate 1mg IV daily -Consider Psychiatry consultation re: rehabilitation -Add Neurontin taper for the following benefits: reduce cravings/impulse to drink, lower anxiety, improve mood, and improve insomnia (2) Acute pancreatitis: Plan: Patient with epigastric abdominal pain, elevated Lipase to 1709. Most likely EtOH Pancreatitis -Continue NPO status -IVF with LR at 200mL/hr x 3 liters -Morphine as needed for pain -Zofran as needed for nausea -Continuous pulse oximetry as patient will be receiving Benzos + Opiates, higher risk for respiratory depression -Clinically still symptomatic, continue current interventions, repeat lipase & amylase in AM (3) Alcoholic hepatitis: Plan: Patient with acute alcoholic hepatitis. CYW=237, MFC=672, Tbili=1.6 Patient with normal platelets MDF = 4.4. Good prognosis. No indication for treatment with steroids -Encourage abstinence from EtOH -Repeat LFTs this morning are downtrending (4) Metabolic acidosis: Plan: Patient with gapped metabolic acidosis with pH=7.21, pCO2=30, serum HCO3=10, AG=25. Normal renal function, Lactate=1.6 Suspect alcoholic ketoacidosis. Higher than expected pCO2 possible mile respiratory acidosis as well. Patient presented similarly in the past. He does have mildly elevated non-fasting BSG of 202 with no documented history of diabetes. -Repeat chemistry this morning slow improvement with HCO3 10 to 13, gap 15 -Repeat labs in AM (5) Hypertensive urgency: Plan: -No prior h/o HTN diagnosis and takes no anti-hypertensives -Add Hydralazine 10mg IV q6h prn SBP>170, DBP>100 -Suspect HTN secondary to withdrawal, could consider starting daily antihypertensive if remains persistently elevated (6) Impaired fasting glucose: Plan: -Hemoglobin a1c ordered and is pending, apparently these are not run over the weekend d/t staffing issues -This AM, FBS 140, which if also >126 tomorrow would be considered diagnostic for DM -For now, pt remains NPO, hold off on initiating accu-checks -A1c should be back in the morning, can determine if treatment by initiating Metformin would be warranted as well as diabetic education, rx for glucometer, other supplies, etc. (7) Hyponatremia: Plan: In setting of EtOH abuse. Patient appears euvolemic on exam -IVF for pancreatitis -Improving, continue to trend (8) Anxiety: Plan: Chronic -Continue Fluoxetine 20mg po daily Plan: Interventions as outlined above Add Gabapentin taper, Hydralazine PRN Follow up labs in AM including amylase and lipase Above plan of care to be d/w Dr. Sewell Admission and Anticipated Discharge Date Admission Date: August 13, 2021 Subjective Patient was seen on daily rounds this morning. He was admitted late yesterday evening for alcohol induced pancreatitis and desiring for alcohol detox. He reports ongoing struggles with EtOH x 20 years. Last tried to detox ~3 years ago. Drinks primarily hard liquor. Is unsure at this time if he wants to go to rehab following this hospitalization. Presently reports epigastric abdominal discomfort and indigestion. He denies cp, dyspnea, n/v/d, f/c, shakes, palpitations, or gu symptoms. Review of Systems Review of Systems: All systems reviewed and are unremarkable except as noted in HPI and below. Denies fever, chills, fatigue, headache, nasal congestion, sore throat, cough, chest pain, shortness of breath, palpitations, orthopnea, PND, n/v/d, constipation, dysuria, hematuria, frequency, back pain, joint pain or swelling, easy bruising or bleeding, skin lesions or rashes. Physical Exam Physical Exam: GENERAL: 50 yo well-developed, well-nourished WM. NAD. LUNGS: Clear to auscultation bilaterally. No W/R/R. CARDIOVASCULAR: Regular rate and rhythm. No M/G/R. No JVD. ABDOMEN: Soft, tender to palpation in epigastrium and LUQ. BS normal x 4 quad. EXTREMITIES: No edema. Non-tender. Peripheral pulses +2/4. NEUROLOGIC: A&O x3. No focal neurological deficits. PSYCHIATRIC: Cooperative. Appropriate mood and affect. SKIN: Warm, dry, intact. No rashes or lesions. Results & Data Results & Data ([facility]) Vital Signs (Past 12 Hours) Vital Signs Temp Pulse Pulse Resp BP BP Pulse Ox 08/14/21 08:00 98 H 08/14/21 07:52 36.5 C 101 H 18 164/110 H 96 08/14/21 06:29 36.5 C 98 H 21 159/107 H 97 08/14/21 04:21 36.5 C 97 H 21 156/103 H 97 08/14/21 02:18 36.7 C 99 H 22 155/102 H 98 08/14/21 01:00 114 H 08/14/21 00:45 36.5 C 112 H 22 166/121 H 94 08/14/21 00:00 106 H 29 H 153/104 H 08/13/21 23:30 108 H 27 H 171/118 H 99 08/13/21 23:20 113 H 21 189/111 H 100 Laboratory Results 08/14/21 03:50 08/14/21 03:50 PG Care Time/CCT Total # of Minutes Spent Total Time Spent with Patient: Total time spent is greater than 50% in coordination of care (as documented) at patient's floor/unit and/or counseling patient: Coding Level of Care Code 81370 Subseq Hosp Care Lvl 3 Diagnoses Alcohol withdrawal F10.239 Acute pancreatitis K85.90 Alcoholic hepatitis K70.10 Metabolic acidosis E87.2 Anxiety F41.9 Hyponatremia E87.1 Hypertensive urgency I16.0 Impaired fasting glucose R73.01
[2021-08-14] MEDS: hydrALAZINE HCL 20 MG/ML VIAL IV PRN ×2 (12:29→20:33)
[2021-08-14] MEDS: PANTOprazole 40 MG TAB PO SCH (12:29)
[2021-08-14] MEDS: GABAPENTIN 600 MG TAB PO SCH ×2 (15:41→20:35)
[2021-08-15] MEDS: LORazepam 2 MG/1 ML VIAL IV PRN ×2 (01:59→22:40)
[2021-08-15] MEDS: chlordiazePOXIDE HCl 25 MG CAP PO SCH ×3 (04:07→21:43)
[2021-08-15] MEDS: GABAPENTIN 600 MG TAB PO SCH ×3 (05:44→21:44)
[2021-08-15] MEDS: MoRPHine SULFATE 2 MG/ML CARP IV PRN ×3 (05:49→16:20)
--- NOTE | 2021-08-15 05:56 | Electrocardiogram Report ---
Test Reason : Blood Pressure : / mmHG Vent. Rate : 123 BPM Atrial Rate : 123 BPM P-R Int : 136 ms QRS Dur : 088 ms QT Int : 340 ms P-R-T Axes : -02 065 -19 degrees QTc Int : 486 ms Sinus tachycardia T wave abnormality, consider inferior ischemia Prolonged QT Abnormal ECG When compared with ECG of 05-DEC-2018 19:29, Questionable change in QRS axis Non-specific change in ST segment in Inferior leads T wave inversion now evident in Inferior leads Confirmed by Emery Santos ([id number]) on 08/15/2021 5:56:16 AM Referred By: REFERRED SELF Confirmed By:Emery Santos
[2021-08-15 06:26] LABS: Eosinophils # (auto) 0.02 K/uL (0-0.5); Eosinophils % (auto) 0.2 %; Hematocrit (blood only) 37.1 % (42-52); Immature Granulocytes # (auto) 0.02 K/uL (0.00-0.02); Immature Granulocytes % (auto) 0.2 %; Lymphocytes % (auto) 9.8 %; Mean Corpuscular Hemoglobin 36.3 pg (25-34); Mean Corpuscular Volume 103.6 fL (80-100); Mean Platelet Volume 9.7 fL (7.4-10.4); Monocytes # (auto) 0.48 K/uL (0.11-0.59); Monocytes % (auto) 5.9 %; Neutrophils # (auto) 6.84 K/uL (1.4-6.5); Neutrophils % (auto) 83.9 %; Platelet Count 165 K/uL (130-400); RDW Coefficient of Variation 14.3 % (11.5-14.5); RDW Standard Deviation 54.5 fL (36.4-46.3); Red Blood Count 3.58 M/uL (4.7-6.1); White Blood Count 8.16 K/uL (4.8-10.8)
[2021-08-15 07:05] LABS: Alanine Aminotransferase 58 U/L (7-52); Albumin Globulin Ratio 1.4 (0.9-2); Albumin Level 3.5 gm/dl (3.4-5.0); Alkaline Phosphatase 69 U/L (34-104); Amylase 124 U/L (25-115); Anion Gap 12 (3-11); Bilirubin,Total 1.9 mg/dl (0.2-1.0); Blood Urea Nitrogen 10 mg/dl (6-23); Calcium 8.5 mg/dl (8.5-10.1); Carbon Dioxide 19 mmol/L (21-32); Chloride 100 mmol/L (98-107); Est GFR (African American) 145.4 ml/min; Est GFR (Non-African American) 125.5 ml/min; Globulin 2.5 gm/dl (2.5-4.0); Glucose 95 mg/dl (70-99(Fasting)); Magnesium 2.1 mg/dl (1.7-2.4); Sodium 131 mmol/L (136-145)
[2021-08-15 08:15] LABS: Estimated Average Glucose 111 mg/dl; Hemoglobin A1C 5.5 % (4.5-5.6)
[2021-08-15] MEDS: THIAMINE HCL 100 MG in SYRINGE 9 ML IV SCH (08:34)
[2021-08-15] MEDS: FOLIC ACID 1 MG in SYRINGE 9.8 ML IV SCH (08:34)
[2021-08-15] MEDS: FAMOTIDINE 20 MG in SYRINGE 3 ML IV SCH (08:34)
[2021-08-15] MEDS: PANTOprazole 40 MG TAB PO SCH (08:34)
[2021-08-15] MEDS: FLUoxetine HCL 20 MG CAP PO SCH (08:34)
[2021-08-15] MEDS: NICOTINE 14 MG/24 HR PATCH TD SCH (08:35)
[2021-08-15] MEDS ORDERED: POTASSIUM PHOS 3 MMOL/1 ML INFUSION IV STA ×2 (08:43→16:43)
[2021-08-15 09:14] LABS: Aspartate Aminotransferase 72 U/L (13-39); Phosphorus < 1.0 mg/dl (2.5-4.9); Potassium 3.4 mmol/L (3.5-5.1)
[2021-08-15 09:14] LABS: Lipase 628 U/L (11-82)
[2021-08-15] MEDS ORDERED: POTASSIUM PHOSPHATE 15 MMOL in SODIUM CHLORIDE 0.9% 250 ML IV ONE ×2 (09:15→17:15)
[2021-08-15] MEDS ORDERED: PANTOprazole 40 MG in SYRINGE 0 ML IV SCH (11:00)
[2021-08-15] MEDS: LACTATED RINGER'S 1,000 ML IV SCH ×2 (11:18→21:43)
[2021-08-15 14:13] LABS: Appearance Urine Cloudy (Clear); Bacteria Urine Automated Negative (Negative); Blood Urine 1+ (Negative); Color Urine Orange; Glucose Urine UA Negative (Negative); Ketones Urine 4+ (Negative); Leukocyte Esterase Urine Trace (Negative); Nitrite Urine Negative (Negative); Protein Urine 1+ (Negative); Specific Gravity Urine 1.025 (1.000-1.030); Urobilinogen Urine Negative (Negative)
[2021-08-15 14:15] LABS: Bilirubin Urine 1+ (Negative)
--- NOTE | 2021-08-15 15:36 | Hospitalist Progress Note ---
Date of Service August 15, 2021 Assessment & Plan (1) Alcohol withdrawal: Plan: 50yo male with longstanding history of EtOH abuse, remote history of withdrawal seizure presenting with EtOH withdrawal. Patient drinks approximately "1 handle every 2-3 days". switched to beer in attempts to "taper" prior to this hospitalization. Last drink was 1 hour [employer]. Tx in ED= banana bag, Librium 50mg PO and Ativan 1mg IV -Admitted for acute ETOH W/D monitoring. -AWSS with IV Ativan as needed (based on CIWA score) -Continue Librium taper/Gabapentin Taper -Thiamine 100mg IV daily -Folate 1mg IV daily -D/W patient recommendations for IP rehab. As of 08/15= remains "undecided" (2) Acute pancreatitis: Plan: Patient with epigastric abdominal pain, elevated Lipase to 1709. Most likely EtOH Pancreatitis -Has been n.p.o. with IV hydration -suspect pancreatitis 2/2 to ETOH abuse/use but given uptrending LFTs, persistent pain (which may be 2/2 acute ETOH W/D) and pancreatitis--> will obtain RUQ U/S -Keep n.p.o. status for now. Once pain improves, will start oral intake (3) Alcoholic hepatitis: Plan: Patient with acute alcoholic hepatitis. TYW=590, QRV=691, Tbili=1.6 Patient with normal platelets MDF = 4.4. Good prognosis. No indication for treatment with steroids -Encourage abstinence from EtOH -LFTs slightly uptrending. Again suspect all alcohol induced but will obtain a right upper quadrant ultrasound to rule out biliary obstruction in the presence of pancreatitis (4) Metabolic acidosis: Plan: Patient with gapped metabolic acidosis with pH=7.21, pCO2=30, serum HCO3=10, AG=25. Normal renal function, Lactate=1.6 Suspect alcoholic ketoacidosis. Higher than expected pCO2 possible mild respiratory acidosis as well. Patient presented similarly in the past. He does have mildly elevated non-fasting BSG of 202 with no documented history of diabetes. -Repeat chemistry this morning slow improvement with HCO3 10 to 19, gap is now 12 (from 26) -Repeat labs in AMto trend (5) Hypertensive urgency: Plan: -No prior h/o HTN diagnosis and takes no anti-hypertensives -Add Hydralazine 10mg IV q6h prn SBP>170, DBP>100 -Suspect HTN secondary to withdrawal -Given mild tachycardia and acute alcohol withdrawal, add oral beta-blockade (6) Impaired fasting glucose: Plan: - Likely related to pancreatitis from alcohol abuse A1c ordered and normal at 5.5 (7) Anxiety: Plan: Chronic -Continue Fluoxetine 20mg po daily (8) Hyponatremia: Plan: Likely ETOH Potomania - Na= 126 on arrival, Now 131 with IVF (9) Electrolyte abnormality: Plan: Hypokalemiareplace Hypophosphatemiareplace Plan: Plan of care will be discussed with Dr. Mendoza. Further orders as warranted. Admission and Anticipated Discharge Date Admission Date: August 13, 2021 Subjective Patient seen on daily rounds today. Vocalizes persistent abdominal pain, nausea but no emesis. Denies diarrhea. Has not been significantly tremulous. No diaphoresis. Has remained afebrile. Is tachycardic in the low 100s. BP stable. "Undecided" if he wants to pursue inpatient rehab Review of Systems Review of Systems: All systems reviewed and are unremarkable except as noted in HPI and below Denies fevers, chills, headache, nasal congestion, sore throat, cough, chest pain, shortness of breath, palpitations, orthopnea, PND, vomiting, diarrhea, constipation, dysuria, hematuria, frequency, back pain, joint pain or swelling, easy bruising or bleeding, skin lesions or rashes. Physical Exam Physical Exam: General: Resting comfortably in his hospital bed. Sleeping upon presentation into the room. Does awaken. Not agitated. Not tremulous. Not diaphoretic. NAD. HEENT: Head is AT/NC. Buccal mucosa is moist and pink Neck: No JVD. Negative hepatojugular reflex Cardiac: Slightly tachycardic at 108 Lungs: CTA without W/R/R Abdomen: Normoactive X4. Abdomen soft soft with generalized abdominal discomfort in all quadrants Extremities: No peripheral clubbing cyanosis or edema Neuro: A&O X4. Cranial nerves II through XII are grossly intact. No focal neuro deficits Skin: No obvious skin lesions or rashes Psych: Appropriate affect. Pleasant and cooperative Results & Data Results & Data ([facility]) Vital Signs (Past 12 Hours) Vital Signs Temp Pulse Pulse Resp BP Pulse Ox Pulse Ox 08/15/21 15:02 36.5 C 101 H 14 124/76 96 08/15/21 14:41 108 H 08/15/21 11:19 36.7 C 100 H 15 115/79 95 08/15/21 08:00 96 08/15/21 07:43 118 H 08/15/21 07:29 37.0 C 117 H 23 120/89 96 08/15/21 04:04 36.5 C 115 H 22 108/75 97 PG Care Time/CCT Total # of Minutes Spent Total Time Spent with Patient: Total time spent is greater than 50% in coordination of care (as documented) at patient's floor/unit and/or counseling patient: Coding Level of Care Code 61388 Subseq Hosp Care Lvl 2 Diagnoses Alcohol withdrawal F10.239 Acute pancreatitis K85.90 Alcoholic hepatitis K70.10 Metabolic acidosis E87.2 Hypertensive urgency I16.0 Impaired fasting glucose R73.01 Hyponatremia E87.1 Anxiety F41.9 Electrolyte abnormality E87.8
[2021-08-15 16:33] LABS: Anion Gap 11 (3-11); Blood Urea Nitrogen 11 mg/dl (6-23); Calcium 8.3 mg/dl (8.5-10.1); Carbon Dioxide 20 mmol/L (21-32); Chloride 101 mmol/L (98-107); Est GFR (African American) 145.4 ml/min; Est GFR (Non-African American) 125.5 ml/min; Glucose 89 mg/dl (70-99(Fasting)); Potassium 3.4 mmol/L (3.5-5.1); Sodium 132 mmol/L (136-145)
[2021-08-15 16:42] LABS: Phosphorus < 1.0 mg/dl (2.5-4.9)
[2021-08-15] MEDS ORDERED: POTASSIUM CHLORIDE CRTAB 20 MEQ TABCR PO STA (16:43)
[2021-08-15] MEDS: METOPROLOL TARTRATE 25 MG TAB PO SCH ×2 (16:43→21:43)
--- NOTE | 2021-08-15 17:29 | Ultrasound Report ---
ABDOMINAL ULTRASOUND, RIGHT UPPER QUADRANT HISTORY: pancreatitis, transaminitis. COMPARISON: Abdomen and pelvis CT 08/13/2021. FINDINGS: Pancreas: Heterogeneous echotexture within the pancreas consistent the patient's known acute pancreat itis. Liver: The liver is echogenic consistent with fatty change. Enlarged measuring 21 cm in length. Gallbladder: No gallbladder wall thickening. No gallstones. CBD: 6 mm. Right kidney: No hydronephrosis. IMPRESSION: 1. Heterogeneous echotexture within the pancreas consistent the patient's known acute pancreatitis. 2. Hepatic steatosis. 3. Normal gallbladder. ACT 112: Negative or not required by law. Electronically signed by: Michael Erickson M.D. 08/15/2021 5:28 PM
[2021-08-15] MEDS: ALUMINUM/MAGNESIUM SUSP 30 ML UDC PO PRN (21:44)
[2021-08-16 06:06] LABS: Eosinophils # (auto) 0.08 K/uL (0-0.5); Eosinophils % (auto) 1.1 %; Hematocrit (blood only) 33.3 % (42-52); Hemoglobin 11.4 g/dL (14.0-18.0); Immature Granulocytes # (auto) 0.03 K/uL (0.00-0.02); Immature Granulocytes % (auto) 0.4 %; Lymphocytes % (auto) 15.7 %; Mean Corpuscular Hemoglobin 35.2 pg (25-34); Mean Corpuscular Hgb Conc 34.2 g/dL (32-36); Mean Corpuscular Volume 102.8 fL (80-100); Monocytes # (auto) 0.55 K/uL (0.11-0.59); Monocytes % (auto) 7.9 %; Neutrophils # (auto) 5.24 K/uL (1.4-6.5); Neutrophils % (auto) 74.9 %; Platelet Count 151 K/uL (130-400); RDW Coefficient of Variation 14.9 % (11.5-14.5); Red Blood Count 3.24 M/uL (4.7-6.1)
[2021-08-16 06:19] LABS: Anion Gap 9 (3-11); BUN Creatinine Ratio 23.3 (10-20); Blood Urea Nitrogen 10 mg/dl (6-23); Calcium 8.1 mg/dl (8.5-10.1); Carbon Dioxide 22 mmol/L (21-32); Chloride 101 mmol/L (98-107); Creatinine Clr Calc Pharmacy 241.4 ml/min; Est GFR (African American) > 150.0 ml/min; Est GFR (Non-African American) 133.5 ml/min; Glucose 86 mg/dl (70-99(Fasting)); Potassium 3.4 mmol/L (3.5-5.1); Sodium 132 mmol/L (136-145)
[2021-08-16 06:25] LABS: Alanine Aminotransferase 53 U/L (7-52); Albumin Globulin Ratio 1.3 (0.9-2); Alkaline Phosphatase 69 U/L (34-104); Aspartate Aminotransferase 71 U/L (13-39); Bilirubin,Total 1.8 mg/dl (0.2-1.0); Globulin 2.4 gm/dl (2.5-4.0); Lipase 251 U/L (11-82); Phosphorus < 1.0 mg/dl (2.5-4.9); Total Protein 5.4 gm/dl (6.0-8.3)
[2021-08-16 06:26] LABS: INR 1.2 (0.9-1.1); Prothrombin Time 12.7 Seconds (9.0-12.0)
[2021-08-16] MEDS ORDERED: POTASSIUM PHOS 3 MMOL/1 ML INFUSION IV STA ×2 (06:38→14:23)
[2021-08-16] MEDS ORDERED: POTASSIUM PHOSPHATE 40 MMOL in SODIUM CHLORIDE 0.9% 1000ML 1,000 ML IV ONE ×2 (06:45→15:30)
[2021-08-16] MEDS: FOLIC ACID 1 MG in SYRINGE 9.8 ML IV SCH (08:04)
[2021-08-16] MEDS: FAMOTIDINE 20 MG in SYRINGE 3 ML IV SCH (08:04)
[2021-08-16] MEDS: FLUoxetine HCL 20 MG CAP PO SCH (08:04)
[2021-08-16] MEDS: THIAMINE HCL 100 MG in SYRINGE 9 ML IV SCH (08:04)
[2021-08-16] MEDS: PANTOprazole 40 MG TAB PO SCH ×2 (08:04→21:12)
[2021-08-16] MEDS: GABAPENTIN 600 MG TAB PO SCH ×2 (08:05→21:11)
[2021-08-16] MEDS: METOPROLOL TARTRATE 25 MG TAB PO SCH ×2 (08:05→21:10)
[2021-08-16] MEDS: NICOTINE 14 MG/24 HR PATCH TD SCH (08:06)
[2021-08-16] MEDS: LACTATED RINGER'S 1,000 ML IV SCH (08:09)
[2021-08-16] MEDS ORDERED: POTASSIUM CHLORIDE CRTAB 20 MEQ TABCR PO STA (08:52)
--- NOTE | 2021-08-16 09:00 | Hospitalist Progress Note ---
Date of Service August 16, 2021 Assessment & Plan (1) Alcohol withdrawal: Plan: 50yo male with longstanding history of EtOH abuse, remote history of withdrawal seizure presenting with EtOH withdrawal. Patient drinks approximately "1 handle every 2-3 days". switched to beer in attempts to "taper" prior to this hospitalization. Last drink was 1 hour [employer]. Tx in ED= banana bag, Librium 50mg PO and Ativan 1mg IV -Admitted for acute ETOH W/D monitoring. -AWSS with IV Ativan as needed (based on CIWA score) --AWSS score today=1 (only because of feelings of anxiety). Decreased Ativan dosing as to ovoid over sedation -Continue Librium taper/Gabapentin Taper -Thiamine 100mg -Folate 1mg -D/W patient recommendations for IP rehab. As of 08/15 and 08/16= remains "unde cided" --spoke to sister 08/16. patient has been in and out of multiple rehab facilities in the past. (2) Acute pancreatitis: Plan: Patient with epigastric abdominal pain, elevated Lipase to 1709. Most likely EtOH Pancreatitis -Has been n.p.o. with IV hydration -suspect pancreatitis 2/2 to ETOH abuse/use -given uptrending LFTs, persistent pain (which may be 2/2 acute ETOH W/D) and pancreatitis--> RUQ U/S done showing normal GB and no biliary dilation -lipase normalized and abd pain resolved. -08/15: Started on clear liquids (for which he is tolerating). Advance to low residue (3) Alcoholic hepatitis: Plan: Patient with acute alcoholic hepatitis. NAP=271, WIX=139, Tbili=1.6 Patient with normal platelets MDF = 4.4. Good prognosis. No indication for treatment with steroids -Encourage abstinence from EtOH -RUQ US shows hepatic steatosis/fatty liver with normal GB and ducts (4) CABELLO (dyspnea on exertion): Plan: - new complaint as of 08/16. Uncertain significance. No hypoxemia - CTA done showing no acute cardiopulmonary process. no evidence of PE. Trace pleural effusions noted - will obtain Echo given longstanding h/o ETOH abuse and potential for dilated cardiomyopathy (5) Esophagitis: Plan: - esophageal thickening seen on imaging. - presented with abd pain, N/V (which was likely from pancreatitis but esophagitis may be contributing) - on Pepcid/Protonix for GI prophylaxis. Empirically add carafate - will need GI consult upon D/C for EGD (would not perform this now given active W/D- although stable). Unless active signs of acute blood loss - Hgb stable (did drop from 13.9 to 11.4 but likely dilutional drop given 8.8L IVF given during this hospitalization) (6) Metabolic acidosis: Plan: Patient with gapped metabolic acidosis with pH=7.21, pCO2=30, serum HCO3=10, AG=25. Normal renal function, Lactate=1.6 Suspect alcoholic ketoacidosis. Higher than expected pCO2 possible mild respiratory acidosis as well. Patient presented similarly in the past. He does have mildly elevated non-fasting BSG of 202 with no documented history of diabetes. -Repeat chemistry this morning shows resolution HCO3 10 to 22, gap is now closed at 9 (from 26) (7) Hypertensive urgency: Plan: -No prior h/o HTN diagnosis and takes no anti-hypertensives -Hydralazine 10mg IV q6h prn on board -Suspect HTN secondary to withdrawal -Given mild tachycardia and acute alcohol withdrawal, added oral beta-blockade--> HR 81, BP 118/81 (8) Impaired fasting glucose: Plan: - Likely related to pancreatitis from alcohol abuse A1c ordered and normal at 5.5 (9) Anxiety: Plan: Chronic -Continue Fluoxetine 20mg po daily -staff encouraged NOT to utilize IV Ativan for anxiety and only for acute ETOH W/D symptoms. -add BuSpar (10) Hyponatremia: Plan: Likely ETOH Potomania - Na= 126 on arrival, Now 132 with IVF (11) Electrolyte abnormality: Plan: Hypokalemiareplace Hypophosphatemiareplace Plan: Patient "undecided" regarding acute drug and ETOH rehab reports generalized weakness. Consult PT/OT likely medically ready for D/C within the next 24-48 hours Sister updated (08/16) Plan of care will be discussed with Dr. Mendoza. Further orders as warranted. Admission and Anticipated Discharge Date Admission Date: August 13, 2021 Subjective Patient seen on daily rounds today. Continues to have changing vague complaints (today it is left sided chest pain- worse with deep inhalation), CABELLO and significant/generalized weakness. Denies MARTIN, N/V or abd pain today. Tolerating clear liquids. No melena or hematochezia. Denies F/C, SOB at rest, orthopnea, cough, PND, cough. AWSS score this am=1 (only because when asked, patient admitted to feeling anxious but does not seem overly anxious). Overnight, his AWSS score was calculated as a 7 and he was given IV ativan (uncertain how this score was obtained as he was not tremulous, tachycardic, diaphoretic, agitated, etc). He received scoring for "hallucinations" which he has not been experiencing. Review of Systems Review of Systems: All systems reviewed and are unremarkable except as noted in HPI and below Denies fevers, chills, headache, nasal congestion, sore throat, cough, chest pain, palpitations, orthopnea, PND, abdominal pain, nausea, vomiting, diarrhea, constipation, dysuria, hematuria, frequency, back pain, joint pain or swelling, easy bruising or bleeding, skin lesions or rashes. Physical Exam Physical Exam: General: Resting comfortably in his hospital bed. Sleeping upon presentation into the room. Does awaken. Not agitated. Not tremulous. Not diaphoretic. NAD. HEENT: Head is AT/NC. Buccal mucosa is moist and pink Neck: No JVD. Negative hepatojugular reflex Cardiac: RRR at present with 1/6 DEWEY. Lungs: CTA without W/R/R Abdomen: Normoactive X4. Abdomen soft soft with generalized abdominal discomfort in all quadrants Extremities: No peripheral clubbing cyanosis or edema Neuro: A&O X4. Cranial nerves II through XII are grossly intact. No focal neuro deficits Skin: No obvious skin lesions or rashes Psych: Appropriate affect. Pleasant and cooperative Results & Data Results & Data ([facility]) Vital Signs (Past 12 Hours) Vital Signs Temp Pulse Pulse Resp BP Pulse Ox Pulse Ox 08/16/21 08:00 95 08/16/21 07:37 36.5 C 91 H 17 124/81 97 08/16/21 07:23 104 H 08/16/21 05:09 101 H 08/16/21 04:00 37.6 C H 89 20 112/81 96 08/16/21 03:20 37.0 C 83 18 100/63 83 L 08/16/21 00:00 94 08/15/21 23:22 36.9 C 92 H 18 111/74 96 Laboratory Results 08/16/21 05:46 08/16/21 05:46 PG Care Time/CCT Total # of Minutes Spent Total Time Spent with Patient: Total time spent is greater than 50% in coordination of care (as documented) at patient's floor/unit and/or counseling patient: Coding Level of Care Code 18723 Subseq Hosp Care Lvl 2 Diagnoses Alcohol withdrawal F10.239 Acute pancreatitis K85.90 Alcoholic hepatitis K70.10 Metabolic acidosis E87.2 Hypertensive urgency I16.0 Impaired fasting glucose R73.01 Anxiety F41.9 Hyponatremia E87.1 Electrolyte abnormality E87.8 CABELLO (dyspnea on exertion) R06.00 Esophagitis K20.90
[2021-08-16] MEDS ORDERED: LORazepam 2 MG/1 ML VIAL IV PRN (09:05)
[2021-08-16] MEDS: FAMOTIDINE 20 MG TAB PO SCH ×2 (09:06→21:13)
[2021-08-16] MEDS ORDERED: PERFLUTREN LIPID MICROSPHERE (DEFINITY) IV ONE (09:45)
[2021-08-16] MEDS ORDERED: OPTIRAY 320 125ml IV ONE (10:18)
--- NOTE | 2021-08-16 10:29 | CT Scan Report ---
CT ANGIOGRAM OF THE CHEST CLINICAL HISTORY: Atypical chest pain. COMPARISON STUDY: Chest x-ray dated 08/13/2021. TECHNIQUE: Following the IV administration of 120 cc of Optiray 320, CT angiogram of the chest was pe rformed from the upper abdomen to the thoracic inlet utilizing the pulmonary embolus protocol. Images are reviewed in the axial, sagittal, and coronal planes. 3-D MIPS images are created and assessed. I V contrast was administered without complication. A dose lowering technique was utilized adhering to the principles of ALARA. CT DOSE: 512.02 mGycm FINDINGS: Thyroid: Imaged portions of the thyroid gland are normal in size and attenuation. Thoracic aorta: The thoracic aorta is normal in caliber and demonstrates standard 3-vessel arch anato my. No dissection is seen. Pulmonary vasculature: The pulmonary trunk is normal in caliber. There are no filling defects identif ied in main, lobar, or proximal segmental pulmonary branches to suggest pulmonary embolus. Evaluation of the segmental and subsegmental branches is degraded by motion artifact. Heart: The heart is mildly enlarged and without pericardial effusion. The coronary arteries are dense ly calcified. Lungs and pleural spaces: Evaluation of the lung parenchyma is compromised by motion artifact. The tr achea and central airways appear clear patchy There are small pleural effusions with dependent atelec tasis. No airspace consolidation is seen typical for pneumonia. There is a 4 mm pulmonary nodule in t he left lower lobe seen on image #108. Mediastinum: There is no mediastinal lymphadenopathy. Noelle: Clear. Axillae: There is no axillary lymphadenopathy. Upper abdomen: There is severe hepatic steatosis. A small hiatal hernia is observed. Circumferential wall thickening suggested in the mid to distal esophagus. Skeletal structures: No lytic or blastic bony lesions are seen. Spondylotic change is seen throughout the thoracic spine. There are healed bilateral rib fractures. IMPRESSION: 1. Motion compromised examination. 2. There is no evidence of pulmonary embolus in the main, lobar, or proximal segmental pulmonary jaylon sanjuana. 3. Mild cardiac enlargement and advanced coronary artery calcification. 4. Small pleural effusions. 5. Severe hepatic steatosis. 6. Circumferential wall thickening is suggested involving the mid to distal esophagus. Correlate clin ically for evidence of esophagitis. This could be further assessed with endoscopy if clinically warra nted. 7. There is a 4 mm left lower lobe pulmonary nodule. This is pathologically indeterminant, and if cli nically warranted this can be followed as per the Fleischner criteria. 8. Additional findings as above. Please refer to below summary of Fleischner criteria recommendations for follow-up of incidental CT n odules (Rosenda Pierce, Guidelines for management of small pulmonary nodules detected on CT scans: A lisbet espino from the Fleischner Society, Radiology 237: [phone].) SOLID NODULES Solitary nodule size: <6 mm * low risk patients: no follow-up needed * high risk patients: optional CT at 12 months Solitary nodule size: 6-8 mm * low risk patients: follow-up at 6-12 months, then consider further follow-up at 18-24 months * high risk patients: initial follow-up CT at 6-12 months and then at 18-24 months if no change Solitary nodule size: >8 mm * either low or high risk patients - consider follow-up CT at 3 months, and/or CT-PET, and/or biopsy Multiple nodules size: <6 mm * low risk patients: no routine follow-up * high risk patients: optional CT at 12 months Multiple nodules size: 6-8 mm * low risk patients: follow-up at 3-6 months, then consider further follow-up at 18-24 months * high risk patients: follow-up at 3-6 months, then at 18-24 months if no change Multiple nodules size: >8 mm * low risk patients: follow-up at 3-6 months, then consider further follow-up at 18-24 months * high risk patients: follow-up at 3-6 months, then at 18-24 months if no change Note: newly detected indeterminate nodule in persons 35 years of age or older. * low risk patients: minimal or absent history of smoking and/or other known risk factors * high risk patients: history of smoking or of other known risk factors (e.g. first degree relative with lung cancer, or exposure to asbestos, radon, uranium) * if a nodule up to 8 mm is partly solid or is ground glass further follow-up is required after 24 m onths to exclude possible slow growing adenocarcinoma (TAIWO) SUBSOLID NODULES Solitary pure ground-glass nodule * nodule size <6 mm - no CT follow-up required * nodule size >=6 mm - follow-up CT at 6-12 months, then every 2 years until 5 years Solitary part-solid nodule * nodule size <6 mm - no CT follow-up required * nodule size >=6 mm - follow-up CT at 3-6 months. If unchanged, and solid component remains <6 mm, then annual follow-up for 5 years Multiple subsolid nodules * nodule size <6 mm - follow-up CT at 3-6 months, consider further follow-up at 2 and 4 years if sta ble * nodule size >=6 mm - follow-up CT at 3-6 months, subsequent management based on the most suspiciou s nodule(s) ACT 112: Positive. There are findings on this exam that require communication between the performing entity and the patient following Patient Test Result Information Act ([place] Act 112) guidelines. Electronically signed by: Mario Colindres M.D. 08/16/2021 10:28 AM
[2021-08-16] MEDS: SUCRALFATE 1 GM TAB PO SCH ×3 (12:11→21:08)
[2021-08-16 13:52] LABS: Anion Gap 8 (3-11); BUN Creatinine Ratio 20.9 (10-20); Blood Urea Nitrogen 9 mg/dl (6-23); Calcium 7.8 mg/dl (8.5-10.1); Carbon Dioxide 22 mmol/L (21-32); Chloride 102 mmol/L (98-107); Creatinine Clr Calc Pharmacy 241.4 ml/min; Est GFR (African American) > 150.0 ml/min; Est GFR (Non-African American) 133.5 ml/min; Glucose 126 mg/dl (70-99(Fasting)); Potassium 3.6 mmol/L (3.5-5.1); Sodium 132 mmol/L (136-145)
[2021-08-16 13:57] LABS: Phosphorus 1.3 mg/dl (2.5-4.9)
[2021-08-16] MEDS: MoRPHine SULFATE 2 MG/ML CARP IV PRN (19:41)
[2021-08-16] MEDS: busPIRone 5 MG TAB PO SCH (21:12)
--- NOTE | 2021-08-16 21:39 | XCELERA ---
[id number]
[2021-08-17] MEDS: MoRPHine SULFATE 2 MG/ML CARP IV PRN (03:20)
[2021-08-17 04:51] LABS: Appearance Urine Clear (Clear); Bacteria Urine Automated Negative (Negative); Bilirubin Urine Negative (Negative); Blood Urine 3+ (Negative); Cast Urine Automated 0 /lpf (0-5); Color Urine Yellow; Epithelial Cell Urine Auto 0-5 /lpf (0-5); Glucose Urine UA Negative (Negative); Ketones Urine Trace (Negative); Leukocyte Esterase Urine Negative (Negative); Nitrite Urine Negative (Negative); Protein Urine Negative (Negative); Specific Gravity Urine 1.007 (1.000-1.030); Urobilinogen Urine Negative (Negative)
[2021-08-17 06:53] LABS: Hematocrit (blood only) 32.6 % (42-52); Hemoglobin 11.4 g/dL (14.0-18.0); Mean Corpuscular Hemoglobin 36.4 pg (25-34); Mean Corpuscular Volume 104.2 fL (80-100); Mean Platelet Volume 9.9 fL (7.4-10.4); Platelet Count 167 K/uL (130-400); RDW Coefficient of Variation 14.8 % (11.5-14.5); RDW Standard Deviation 56.7 fL (36.4-46.3); Red Blood Count 3.13 M/uL (4.7-6.1); White Blood Count 7.58 K/uL (4.8-10.8)
[2021-08-17 07:07] LABS: INR 1.1 (0.9-1.1); Prothrombin Time 12.1 Seconds (9.0-12.0)
[2021-08-17 07:40] LABS: Albumin Globulin Ratio 1.2 (0.9-2); Albumin Level 3.1 gm/dl (3.4-5.0); BUN Creatinine Ratio 9.1 (10-20); Bilirubin,Total 1.3 mg/dl (0.2-1.0); Creatinine Clr Calc Pharmacy 188.1 ml/min; Est GFR (African American) 139.8 ml/min; Est GFR (Non-African American) 120.7 ml/min; Globulin 2.6 gm/dl (2.5-4.0); Phosphorus 3.5 mg/dl (2.5-4.9); Potassium 3.4 mmol/L (3.5-5.1); Total Protein 5.7 gm/dl (6.0-8.3)
[2021-08-17] MEDS: PANTOprazole 40 MG TAB PO SCH ×2 (08:03→20:11)
[2021-08-17] MEDS: busPIRone 5 MG TAB PO SCH ×2 (08:03→20:11)
[2021-08-17] MEDS: FOLIC ACID 1 MG TAB PO SCH (08:03)
[2021-08-17] MEDS: THIAMINE HCL 100 MG TAB PO SCH (08:03)
[2021-08-17] MEDS: FAMOTIDINE 20 MG TAB PO SCH ×2 (08:03→20:10)
[2021-08-17] MEDS: FLUoxetine HCL 20 MG CAP PO SCH (08:04)
[2021-08-17] MEDS: METOPROLOL TARTRATE 25 MG TAB PO SCH ×2 (08:04→20:11)
[2021-08-17] MEDS: SUCRALFATE 1 GM TAB PO SCH ×4 (08:05→20:10)
[2021-08-17] MEDS: NICOTINE 14 MG/24 HR PATCH TD SCH ×2 (08:05→16:22)
[2021-08-17] MEDS ORDERED: POTASSIUM CHLORIDE CRTAB 20 MEQ TABCR PO STA (08:20)
[2021-08-17] MEDS: chlordiazePOXIDE HCl 5 MG CAP PO SCH ×2 (09:23→21:05)
--- NOTE | 2021-08-17 11:42 | Hospitalist Progress Note ---
Date of Service August 17, 2021 Assessment & Plan (1) Alcohol withdrawal: Plan: 50yo male with longstanding history of EtOH abuse, remote history of withdrawal seizure presenting with EtOH withdrawal. Patient drinks approximately "1 handle every 2-3 days". switched to beer in attempts to "taper" prior to this hospitalization. Last drink was 1 hour [employer]. Tx in ED= banana bag, Librium 50mg PO and Ativan 1mg IV -Admitted for acute ETOH W/D monitoring. -AWSS with IV Ativan as needed (based on CIWA score) --AWSS score today=1 (only because of feelings of anxiety). Decreased Ativan dosing as to ovoid over sedation (as seemed to be given generously) -Limited withdrawal symptoms apparent (mildly tremulous and complains of abdominal pain) but otherwise he is awake and alert, afebrile, not diaphoretic, no longer tachycardic, no nausea or vomiting, is not agitated/restless or irritable -Continue Librium taper/Gabapentin Taper -Thiamine 100mg -Folate 1mg -D/W patient recommendations for IP rehab. As of 08/15 and 08/16= was"undecided". 08/17 is "agreeable" to inpatient rehab but his is c/o significant weakness and may need IP PT/OT --spoke to sister 08/16. patient has been in and out of multiple rehab facilities in the past. --CM updated (2) Acute pancreatitis: Plan: Patient with epigastric abdominal pain, elevated Lipase to 1709. Most likely EtOH Pancreatitis -Has been n.p.o. with IV hydration -suspect pancreatitis 2/2 to ETOH abuse/use -given uptrending LFTs, persistent pain (which may be 2/2 acute ETOH W/D) and pancreatitis--> RUQ U/S done showing normal GB and no biliary dilation -lipase normalized and abd pain resolved. -08/15: Started on clear liquids (for which he is tolerating). Advanced to low residue diet-- tolerating this (3) Alcoholic hepatitis: Plan: Patient with acute alcoholic hepatitis. EIP=100, QFB=963, Tbili=1.6 Patient with normal platelets MDF = 4.4. Good prognosis. No indication for treatment with steroids -Encourage abstinence from EtOH -RUQ US shows hepatic steatosis/fatty liver with normal GB and ducts (4) CABELLO (dyspnea on exertion): Plan: - new complaint as of 08/16. Uncertain significance. No hypoxemia - CTA done showing no acute cardiopulmonary process. no evidence of PE. Trace pleural effusions noted - Echocardiogram done given longstanding history of alcohol abuse surprisingly with preserved EF of 55 to 60% (5) Esophagitis: Plan: - esophageal thickening seen on imaging. - presented with abd pain, N/V (which was likely from pancreatitis but esophagitis may be contributing) still with intermittent epigastric discomfortlikely related to esophagitis - on Pepcid/Protonix for GI prophylaxis. Empirically added carafate on 08/16 - will need GI consult upon D/C for EGD (would not perform this now given active W/D- although stable)-Unless active signs of acute blood loss. D/W Dr. Denise who agreed --would need GI FU not only for evidence of esophagitis but also screening of liver disease given his EtOH abuse. Need EGD to look for varices - Hgb stable (did drop from 13.9 to 11.4 but likely dilutional drop given 8.8L IVF given during this hospitalization) (6) Metabolic acidosis: Plan: Patient with gapped metabolic acidosis with pH=7.21, pCO2=30, serum HCO3=10, AG=25. Normal renal function, Lactate=1.6 Suspect alcoholic ketoacidosis. Higher than expected pCO2 possible mild respiratory acidosis as well. Patient presented similarly in the past. He does have mildly elevated non-fasting BSG of 202 with no documented history of diabetes. Acidosis has since resolved. Anion gap closed. Serum bicarb normallikely all alcohol related (7) Hypertensive urgency: Plan: -No prior h/o HTN diagnosis and takes no anti-hypertensives -Hydralazine 10mg IV q6h prn on board -Suspect HTN secondary to withdrawal -Given mild tachycardia and acute alcohol withdrawal, added oral beta-blockade--> HR 89, BP 110/74 (8) Impaired fasting glucose: Plan: - Likely related to pancreatitis from alcohol abuse A1c ordered and normal at 5.5 (9) Anxiety: Plan: Chronic -Continue Fluoxetine 20mg po daily -staff encouraged NOT to utilize IV Ativan for anxiety and only for acute ETOH W/D symptoms. -added BuSpar (10) Hyponatremia: Plan: Likely ETOH Potomania - Na= 126 on arrival, Now 132 with IVF (11) Electrolyte abnormality: Plan: Hypokalemiareplace Hypophosphatemiareplaced/resolved Plan: At this point, patient is medically stable for discharge to home but awaiting PT/OT eval Patient reports general malaise/weakness and does not feel strong enough to be discharged to home. May benefit from inpatient physical rehab Patient is agreeable to drug and alcohol rehab should he not require inpatient physical rehabilitation Case management updated Sister updated on 08/17 Plan of care will be discussed with Dr. Mendoza. Further orders as warranted. Admission and Anticipated Discharge Date Admission Date: August 13, 2021 Subjective Patient seen on daily rounds today. Continues to have changing vague complaints. Yesterday his complaints were chest pain and shortness of breath. Today his complaints are abdominal discomfort made worse when sitting up, and significant leg pain/weakness. In addition, he has had multiple complaints of dysuria prompting repeat urine cultures that remain no growth. Has received morphine multiple times for his abdominal complaints. His lipase is downtrending. He is tolerating oral intake. When seen by myself today, does report mild epigastric discomfort and pain around his ribs when sitting up. Otherwise he denies fevers, chills, chest pain , shortness of breath, intra-abdominal pain, nausea, vomiting, diarrhea, hematochezia, today denies dysuria, hematuria or frequency. Review of Systems Review of Systems: All systems reviewed and are unremarkable except as noted in HPI and below Denies fevers, chills, headache, nasal congestion, sore throat, cough, chest pain, palpitations, orthopnea, PND, abdominal pain, nausea, vomiting, diarrhea, constipation, dysuria, hematuria, frequency, back pain, joint pain or swelling, easy bruising or bleeding, skin lesions or rashes. Physical Exam Physical Exam: General: Resting comfortably in his hospital bed. Sleeping upon presentation into the room. Does awaken. Not agitated. Not tremulous. Not diaphoretic. NAD. HEENT: Head is AT/NC. Buccal mucosa is moist and pink Neck: No JVD. Negative hepatojugular reflex Cardiac: RRR at present with 1/6 DEWEY. Lungs: CTA without W/R/R Abdomen: Normoactive X4. Abdomen soft. Mild epigastric discomfort upon palpation. Tenderness along the axillary lower rib on the right. Extremities: No peripheral clubbing cyanosis or edema Neuro: A&O X4. Cranial nerves II through XII are grossly intact. No focal neuro deficits Skin: No obvious skin lesions or rashes Psych: Appropriate affect. Pleasant and cooperative Results & Data Results & Data ([facility]) Vital Signs (Past 12 Hours) Vital Signs Temp Pulse Resp BP Pulse Ox Pulse Ox 08/17/21 10:55 36.7 C 89 16 110/74 96 08/17/21 08:00 95 08/17/21 07:37 36.8 C 89 17 121/78 95 08/17/21 03:42 36.7 C 88 20 110/75 97 Diagnostic Findings 08/17/21 06:17 08/17/21 06:17 Total bilirubin: 1.3 AST: 108 ALT: 74 Lipase: 295 PG Care Time/CCT Total # of Minutes Spent Total Time Spent with Patient: Total time spent is greater than 50% in coordination of care (as documented) at patient's floor/unit and/or counseling patient: Coding Level of Care Code 75685 Subseq Hosp Care Lvl 2 Diagnoses Alcohol withdrawal F10.239 Acute pancreatitis K85.90 Alcoholic hepatitis K70.10 CABELLO (dyspnea on exertion) R06.00 Esophagitis K20.90 Metabolic acidosis E87.2 Hypertensive urgency I16.0 Impaired fasting glucose R73.01 Anxiety F41.9 Hyponatremia E87.1 Electrolyte abnormality E87.8
[2021-08-17] MEDS ORDERED: IBUPROFEN 600 MG TAB PO ONE (16:33)
[2021-08-17] MEDS ORDERED: DICLOFENAC SOD 1% GEL 100 GM TUBE EXT PRN (16:49)
[2021-08-17] MEDS ORDERED: KETOROLAC TROMETHAMINE 15 MG/ML VIAL IV ONE (20:26)
[2021-08-17] MEDS ORDERED: GABAPENTIN 600 MG TAB PO SCH (22:00)
[2021-08-18] MEDS ORDERED: MELATONIN 3 MG TAB PO ONE (01:01)
[2021-08-18 07:53] LABS: Hematocrit (blood only) 33.3 % (42-52); Hemoglobin 11.6 g/dL (14.0-18.0); Mean Corpuscular Hemoglobin 35.8 pg (25-34); Mean Corpuscular Hgb Conc 34.8 g/dL (32-36); Mean Corpuscular Volume 102.8 fL (80-100); Mean Platelet Volume 9.7 fL (7.4-10.4); Platelet Count 191 K/uL (130-400); RDW Coefficient of Variation 14.6 % (11.5-14.5); RDW Standard Deviation 55.6 fL (36.4-46.3); Red Blood Count 3.24 M/uL (4.7-6.1); White Blood Count 6.85 K/uL (4.8-10.8)
[2021-08-18 08:22] LABS: Albumin Globulin Ratio 1.2 (0.9-2); Albumin Level 3.2 gm/dl (3.4-5.0); Bilirubin,Total 1.2 mg/dl (0.2-1.0); Calcium 8.3 mg/dl (8.5-10.1); Creatinine Clr Calc Pharmacy 206.3 ml/min; Est GFR (African American) 145.4 ml/min; Est GFR (Non-African American) 125.5 ml/min; Globulin 2.7 gm/dl (2.5-4.0); Magnesium 2.1 mg/dl (1.7-2.4); Potassium 3.6 mmol/L (3.5-5.1); Total Protein 5.9 gm/dl (6.0-8.3)
[2021-08-18] MEDS: PANTOprazole 40 MG TAB PO SCH ×2 (08:43→21:29)
[2021-08-18] MEDS: FOLIC ACID 1 MG TAB PO SCH (08:44)
[2021-08-18] MEDS: THIAMINE HCL 100 MG TAB PO SCH (08:44)
[2021-08-18] MEDS: FAMOTIDINE 20 MG TAB PO SCH ×2 (08:44→21:29)
[2021-08-18] MEDS: SUCRALFATE 1 GM TAB PO SCH ×4 (08:44→21:28)
[2021-08-18] MEDS: FLUoxetine HCL 20 MG CAP PO SCH (08:44)
[2021-08-18] MEDS: busPIRone 5 MG TAB PO SCH ×2 (08:45→21:31)
[2021-08-18] MEDS: METOPROLOL TARTRATE 25 MG TAB PO SCH ×2 (08:46→21:29)
[2021-08-18] MEDS: NICOTINE 14 MG/24 HR PATCH TD SCH (09:30)
[2021-08-18 15:38] LABS: Appearance Urine Clear (Clear); Bacteria Urine Automated Negative (Negative); Bilirubin Urine Negative (Negative); Blood Urine Trace (Negative); Cast Urine Automated 0 /lpf (0-5); Color Urine Yellow; Epithelial Cell Urine Auto 0-5 /lpf (0-5); Glucose Urine UA Negative (Negative); Ketones Urine Negative (Negative); Leukocyte Esterase Urine Negative (Negative); Nitrite Urine Negative (Negative); Protein Urine Negative (Negative); RBC Urine Automated 0-4 /hpf (0-4); Specific Gravity Urine 1.005 (1.000-1.030); Urobilinogen Urine Negative (Negative)
--- NOTE | 2021-08-18 15:52 | Hospitalist Progress Note ---
Date of Service August 18, 2021 Assessment & Plan (1) Alcohol withdrawal: Plan: 50yo male with longstanding history of EtOH abuse, remote history of withdrawal seizure presenting with EtOH withdrawal. Patient drinks approximately "1 handle every 2-3 days". switched to beer in attempts to "taper" prior to this hospitalization. Last drink was 1 hour [employer]. Tx in ED= banana bag, Librium 50mg PO and Ativan 1mg IV -Admitted for acute ETOH W/D monitoring. -AWSS with IV Ativan as needed (based on CIWA score) --AWSS score today=1 (only because of feelings of anxiety). Decreased Ativan dosing as to ovoid over sedation (as seemed to be given generously) -Limited withdrawal symptoms apparent (mildly tremulous and complains of abdominal pain) but otherwise he is awake and alert, afebrile, not diaphoretic, no longer tachycardic, no nausea or vomiting, is not agitated/restless or irritable -Continue Librium taper/Gabapentin Taper -Thiamine 100mg -Folate 1mg -D/W patient recommendations for IP rehab. As of 08/15 and 08/16= was"undecided". 08/17 is "agreeable" to inpatient rehab but his is c/o significant weakness and may need IP PT/OT --spoke to sister 08/16. patient has been in and out of multiple rehab facilities in the past. --CM updated (2) Acute pancreatitis: Plan: Patient with epigastric abdominal pain, elevated Lipase to 1709. Most likely EtOH Pancreatitis -Has been n.p.o. with IV hydration -suspect pancreatitis 2/2 to ETOH abuse/use -given uptrending LFTs, persistent pain (which may be 2/2 acute ETOH W/D) and pancreatitis--> RUQ U/S done showing normal GB and no biliary dilation -lipase normalized and abd pain resolved. -08/15: Started on clear liquids (for which he is tolerating). Advanced to low residue diet-- tolerating this (3) Alcoholic hepatitis: Plan: Patient with acute alcoholic hepatitis. IYW=527, FXY=238, Tbili=1.6 Patient with normal platelets MDF = 4.4. Good prognosis. No indication for treatment with steroids -Encourage abstinence from EtOH -RUQ US shows hepatic steatosis/fatty liver with normal GB and ducts (4) CABELLO (dyspnea on exertion): Plan: - new complaint as of 08/16. Uncertain significance. No hypoxemia - CTA done showing no acute cardiopulmonary process. no evidence of PE. Trace pleural effusions noted - Echocardiogram done given longstanding history of alcohol abuse surprisingly with preserved EF of 55 to 60% (5) Esophagitis: Plan: - esophageal thickening seen on imaging. - presented with abd pain, N/V (which was likely from pancreatitis but esophagitis may be contributing) still with intermittent epigastric discomfortlikely related to esophagitis - on Pepcid/Protonix for GI prophylaxis. Empirically added carafate on 08/16 - will need GI consult upon D/C for EGD (would not perform this now given active W/D- although stable)-Unless active signs of acute blood loss. D/W Dr. Denise who agreed --would need GI FU not only for evidence of esophagitis but also screening of liver disease given his EtOH abuse. Need EGD to look for varices - Hgb stable (did drop from 13.9 to 11.4 but likely dilutional drop given 8.8L IVF given during this hospitalization) (6) Metabolic acidosis: Plan: Patient with gapped metabolic acidosis with pH=7.21, pCO2=30, serum HCO3=10, AG=25. Normal renal function, Lactate=1.6 Suspect alcoholic ketoacidosis. Higher than expected pCO2 possible mild respiratory acidosis as well. Patient presented similarly in the past. He does have mildly elevated non-fasting BSG of 202 with no documented history of diabetes. Acidosis has since resolved. Anion gap closed. Serum bicarb normallikely all alcohol related (7) Hypertensive urgency: Plan: -No prior h/o HTN diagnosis and takes no anti-hypertensives -Hydralazine 10mg IV q6h prn on board -Suspect HTN secondary to withdrawal -Given mild tachycardia and acute alcohol withdrawal, added oral beta-b lockade--> HR 89, BP 110/74 (8) Impaired fasting glucose: Plan: - Likely related to pancreatitis from alcohol abuse A1c ordered and normal at 5.5 (9) Anxiety: Plan: Chronic -Continue Fluoxetine 20mg po daily -staff encouraged NOT to utilize IV Ativan for anxiety and only for acute ETOH W/D symptoms. -added BuSpar (10) Hyponatremia: Plan: Likely ETOH Potomania -Na= 126 on arrival, Now 132 with IVF (11) Electrolyte abnormality: Plan: Hypokalemiareplace Hypophosphatemiareplaced/resolved Plan: UA obtained d/t complaint of dysuria which is normal and does not appear infected PT/OT recommending d/c to rehab--patient is medically and hemodynamically stable for d/c, referrals sent, awaiting acceptance and bed availability Sister updated on 08/17 Plan of care will be discussed with Dr. Hyatt. Admission and Anticipated Discharge Date Admission Date: August 13, 2021 Subjective Patient seen on rounds this morning. He is resting comfortably in bed after just getting showered. Reports having some burning when he voids but no other complaints/concerns at this time. PT/OT recommending rehab, has sent referrals to [facility]. Review of Systems Review of Systems: All systems reviewed and are unremarkable except as noted in HPI and below Denies fevers, chills, headache, nasal congestion, sore throat, cough, chest pain, palpitations, orthopnea, PND, abdominal pain, nausea, vomiting, diarrhea, constipation, hematuria, frequency, back pain, joint pain or swelling, easy bruising or bleeding, skin lesions or rashes. Physical Exam Physical Exam: GENERAL: 50 yo well-developed, well-nourished WM. NAD. LUNGS: Clear to auscultation bilaterally. No W/R/R. CARDIOVASCULAR: Regular rate and rhythm. No M/G/R. No JVD. ABDOMEN: Soft, nontender, nondistended. BS normal x 4 quad. EXTREMITIES: No edema. Non-tender. Peripheral pulses +2/4. NEUROLOGIC: A&O x3. No focal neurological deficits. PSYCHIATRIC: Cooperative. Appropriate mood and affect. SKIN: Warm, dry, intact. No rashes or lesions. Results & Data Results & Data ([facility]) Vital Signs (Past 12 Hours) Vital Signs Temp Pulse Pulse Resp BP Pulse Ox Pulse Ox 08/18/21 15:32 37.0 C 80 18 112/79 98 08/18/21 14:57 90 08/18/21 11:38 37.0 C 81 18 106/73 96 08/18/21 10:06 81 08/18/21 08:14 36.8 C 90 18 108/71 99 05/12/22 08:00 99 08/18/21 04:25 36.6 C 89 20 113/84 98 PG Care Time/CCT Total # of Minutes Spent Total Time Spent with Patient: Total time spent is greater than 50% in coordination of care (as documented) at patient's floor/unit and/or counseling patient: Coding Level of Care Code 95243 Subseq Hosp Care Lvl 2 Diagnoses Alcohol withdrawal F10.239 Acute pancreatitis K85.90 Alcoholic hepatitis K70.10 CABELLO (dyspnea on exertion) R06.00 Esophagitis K20.90 Metabolic acidosis E87.2 Hypertensive urgency I16.0 Impaired fasting glucose R73.01 Anxiety F41.9 Hyponatremia E87.1 Electrolyte abnormality E87.8
[2021-08-18] MEDS: ALUMINUM/MAGNESIUM SUSP 30 ML UDC PO PRN (21:37)
[2021-08-19] MEDS ORDERED: KETOROLAC 30 MG/ML VIAL IV ONE (02:19)
[2021-08-19] MEDS ORDERED: MELATONIN 3 MG TAB PO ONE (02:19)
--- NOTE | 2021-08-19 02:27 | Communication Note ---
Date of Service: August 19, 2021 S: Patient complaining of diffuse abdominal pain most prominent on the LLQ. Rates pain at a 6/10. Pain described as intermittent cramping, intermittent thro bbing. + associated nausea. Denies vomiting. + flatus and last BM was about 2 hours ago. Denies back pain. Denies current urinary symptoms including dysuria or hematuria but notes that he had urinary symptoms earlier today. Patient also noting some anxiety with being in the hospital and "feeling trapped." He is requesting something to help him sleep. O: Patient in NAD. Flat affect. Lungs CTAB. Heart RRR. Abd is soft, normal BS x4. There is mild TTP in the right upper abdomen/epigastrum but no TTP in the LLQ. No CVA tenderness to palpation. A/P: Reviewed labs and UA from earlier today. UA with trace blood, otherwise wnl. Patient agreeable to trial of Zofran, Toradol, and melatonin. Patient would like to defer any imaging at this time.
[2021-08-19] MEDS: NICOTINE 14 MG/24 HR PATCH TD SCH (07:56)
[2021-08-19] MEDS: THIAMINE HCL 100 MG TAB PO SCH (07:57)
[2021-08-19] MEDS: FAMOTIDINE 20 MG TAB PO SCH ×2 (07:57→20:44)
[2021-08-19] MEDS: FLUoxetine HCL 20 MG CAP PO SCH (07:57)
[2021-08-19] MEDS: FOLIC ACID 1 MG TAB PO SCH (07:58)
[2021-08-19] MEDS: SUCRALFATE 1 GM TAB PO SCH ×4 (07:58→20:48)
[2021-08-19] MEDS: busPIRone 5 MG TAB PO SCH ×2 (07:58→20:44)
[2021-08-19] MEDS: PANTOprazole 40 MG TAB PO SCH ×2 (07:58→20:45)
[2021-08-19] MEDS: METOPROLOL TARTRATE 25 MG TAB PO SCH ×2 (07:58→20:47)
--- NOTE | 2021-08-19 15:23 | Hospitalist Progress Note ---
Date of Service August 19, 2021 Assessment & Plan (1) Alcohol withdrawal: Plan: 50yo male with longstanding history of EtOH abuse, remote history of withdrawal seizure presenting with EtOH withdrawal. Patient drinks approximately "1 handle every 2-3 days". switched to beer in attempts to "taper" prior to this hospitalization. 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 Tx in ED= banana bag, Librium 50mg PO and Ativan 1mg IV -Admitted for acute ETOH W/D monitoring. -AWSS with IV Ativan as needed (based on CIWA score) -Decreased Ativan dosing as to ovoid over sedation (as seemed to be given generously) -Limited withdrawal symptoms apparent (mildly tremulous and complains of abdominal pain) but otherwise he is awake and alert, afebrile, not diaphoretic, no longer tachycardic, no nausea or vomiting, is not agitated/restless or irritable -Continue Librium taper/Gabapentin Taper -Thiamine 100mg -Folate 1mg -D/W patient recommendations for IP rehab. As of 08/15 and 08/16= was "undecided". 08/17 is "agreeable" to inpatient rehab but his is c/o significant weakness and therapy is recommending physical rehabilitation upon d/c (2) Acute pancreatitis: Plan: Patient with epigastric abdominal pain, elevated Lipase to 1709. Most likely EtOH Pancreatitis -Has been n.p.o. with IV hydration -suspect pancreatitis 2/2 to ETOH abuse/use -given uptrending LFTs, persistent pain (which may be 2/2 acute ETOH W/D) and pancreatitis--> RUQ U/S done showing normal GB and no biliary dilation -lipase normalized and abd pain resolved. -08/15: Started on clear liquids (for which he is tolerating). Advanced to low res idue diet-- tolerating this (3) Alcoholic hepatitis: Plan: Patient with acute alcoholic hepatitis. AYQ=580, XZP=351, Tbili=1.6 Patient with normal platelets MDF = 4.4. Good prognosis. No indication for treatment with steroids -Encourage abstinence from EtOH -RUQ US shows hepatic steatosis/fatty liver with normal GB and ducts (4) CABELLO (dyspnea on exertion): Plan: - new complaint as of 08/16. Uncertain significance. No hypoxemia - CTA done showing no acute cardiopulmonary process. no evidence of PE. Trace pleural effusions noted - Echocardiogram done given longstanding history of alcohol abuse surprisingly with preserved EF of 55 to 60% (5) Esophagitis: Plan: - esophageal thickening seen on imaging. - presented with abd pain, N/V (which was likely from pancreatitis but esophagitis may be contributing) still with intermittent epigastric discomfortlikely related to esophagitis - on Pepcid/Protonix for GI prophylaxis. Empirically added carafate on 08/16 (which patient is now refusing per RN on 08/19) - will need GI consult upon D/C for EGD (would not perform this now given active W/D- although stable)-Unless active signs of acute blood loss. D/W Dr. Garcia who agreed * would need GI FU not only for evidence of esophagitis but also screening of liver disease given his EtOH abuse. Need EGD to look for varices - Hgb stable (did drop from 13.9 to 11.4 but likely dilutional drop given 8.8L IVF given during this hospitalization) (6) Metabolic acidosis: Plan: Patient with gapped metabolic acidosis with pH=7.21, pCO2=30, serum HCO3=10, AG=25. Normal renal function, Lactate=1.6 -Suspect alcoholic ketoacidosis. Higher than expected pCO2 possible mild respiratory acidosis as well. Patient presented similarly in the past. He does have mildly elevated non-fasting BSG of 202 with no documented history of diabetes. -Acidosis has since resolved. Anion gap closed. Serum bicarb normallikely all alcohol related (7) Hypertensive urgency: Plan: -No prior h/o HTN diagnosis and takes no anti-hypertensives -Hydralazine 10mg IV q6h prn on board -Suspect HTN secondary to withdrawal -Given mild tachycardia and acute alcohol withdrawal, added oral beta-blockade--> HR 89, BP 110/74 (8) Impaired fasting glucose: Plan: -Likely related to pancreatitis from alcohol abuse -A1c ordered and normal at 5.5 (9) Anxiety: Plan: Chronic -Continue Fluoxetine 20mg po daily -staff encouraged NOT to utilize IV Ativan for anxiety and only for acute ETOH W/D symptoms. -added BuSpar (10) Hyponatremia: Plan: Likely ETOH Potomania -Na= 126 on arrival, Now 132 with IVF (11) Electrolyte abnormality: Plan: -Hypokalemiareplace -Hypophosphatemiareplaced/resolved Plan: PT/OT recommending d/c to rehab--patient is medically and hemodynamically stable for d/c, referrals sent, awaiting acceptance and bed availability Downgrade to med/surg Additional referrals sent to [facility], and [facility], still awaiting word back Sister updated on 08/17 Plan of care will be discussed with Dr. Hyatt. Admission and Anticipated Discharge Date Admission Date: August 13, 2021 Subjective Patient seen on rounds this morning. No complaints/concerns this morning. No further c/o dysuria. PT/OT recommending rehab, has sent referrals to [facility] and [facility]. [facility] does not accept his insurance. [facility] still reviewing and will not have any beds until next week. Pt receptive to sending referrals to other facilities. Review of Systems Review of Systems: All systems reviewed and are unremarkable except as noted in HPI and below Denies fevers, chills, headache, nasal congestion, sore throat, cough, chest pain, palpitations, orthopnea, PND, abdominal pain, nausea, vomiting, diarrhea, constipation, hematuria, frequency, back pain, joint pain or swelling, easy bruising or bleeding, skin lesions or rashes. Physical Exam Physical Exam: GENERAL: 50 yo well-developed, well-nourished WM. NAD. LUNGS: Clear to auscultation bilaterally. No W/R/R. CARDIOVASCULAR: Regular rate and rhythm. No M/G/R. ABDOMEN: Soft, nontender, nondistended. BS normal x 4 quad. EXTREMITIES: No edema. Non-tender. Peripheral pulses +2/4. NEUROLOGIC: A&O x3. No focal neurological deficits. PSYCHIATRIC: Cooperative. Appropriate mood and affect. SKIN: Warm, dry, intact. No rashes or lesions. Results & Data Results & Data ([facility]) Vital Signs (Past 12 Hours) Vital Signs Temp Pulse Pulse Resp BP Pulse Ox Pulse Ox 08/19/21 12:37 36.8 C 70 18 125/64 98 08/19/21 10:25 67 08/19/21 08:00 96 08/19/21 07:48 36.7 C 89 20 114/62 97 08/19/21 03:33 36.8 C 77 20 126/84 96 PG Care Time/CCT Total # of Minutes Spent Total Time Spent with Patient: Total time spent is greater than 50% in coordination of care (as documented) at patient's floor/unit and/or counseling patient: Coding Level of Care Code 06106 Subseq Hosp Care Lvl 2 Diagnoses Alcohol withdrawal F10.239 Acute pancreatitis K85.90 Alcoholic hepatitis K70.10 CABELLO (dyspnea on exertion) R06.00 Esophagitis K20.90 Metabolic acidosis E87.2 Hypertensive urgency I16.0 Impaired fasting glucose R73.01 Anxiety F41.9 Hyponatremia E87.1 Electrolyte abnormality E87.8
[2021-08-19] MEDS ORDERED: IBUPROFEN 200 MG TAB PO STA (21:31)
[2021-08-20] MEDS: FLUoxetine HCL 20 MG CAP PO SCH (08:57)
[2021-08-20] MEDS: FOLIC ACID 1 MG TAB PO SCH (08:57)
[2021-08-20] MEDS: METOPROLOL TARTRATE 25 MG TAB PO SCH ×2 (08:57→21:18)
[2021-08-20] MEDS: PANTOprazole 40 MG TAB PO SCH ×2 (08:58→21:15)
[2021-08-20] MEDS: busPIRone 5 MG TAB PO SCH ×2 (08:58→21:15)
[2021-08-20] MEDS: THIAMINE HCL 100 MG TAB PO SCH (08:58)
[2021-08-20] MEDS: NICOTINE 14 MG/24 HR PATCH TD SCH ×2 (08:58→09:01)
[2021-08-20] MEDS: FAMOTIDINE 20 MG TAB PO SCH ×2 (08:58→22:08)
[2021-08-20] MEDS: SUCRALFATE 1 GM TAB PO SCH ×4 (09:01→21:16)
--- NOTE | 2021-08-20 11:09 | Hospitalist Progress Note ---
Date of Service August 20, 2021 Assessment & Plan (1) Alcohol withdrawal: Plan: 50yo male with longstanding history of EtOH abuse, remote history of withdrawal seizure presenting with EtOH withdrawal. Patient drinks approximately "1 handle every 2-3 days". switched to beer in attempts to "taper" prior to this hospitalization. 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 Tx in ED= banana bag, Librium 50mg PO and Ativan 1mg IV -Admitted for acute ETOH W/D monitoring. -AWSS with IV Ativan as needed (based on CIWA score) -Decreased Ativan dosing as to ovoid over sedation (as seemed to be given generously) -Limited withdrawal symptoms apparent (mildly tremulous and complains of abdominal pain) but otherwise he is awake and alert, afebrile, not diaphoretic, no longer tachycardic, no nausea or vomiting, is not agitated/restless or irritable -Continue Librium taper/Gabapentin Taper -Thiamine 100mg -Folate 1mg -D/W patient recommendations for IP rehab. As of 08/15 and 08/16= was "undecided". 08/17 is "agreeable" to inpatient rehab but his is c/o significant weakness and therapy is recommending physical rehabilitation upon d/c (2) Acute pancreatitis: Plan: Patient with epigastric abdominal pain, elevated Lipase to 1709. Most likely EtOH Pancreatitis -Has been n.p.o. with IV hydration -suspect pancreatitis 2/2 to ETOH abuse/use -given uptrending LFTs, persistent pain (which may be 2/2 acute ETOH W/D) and pancreatitis--> RUQ U/S done showing normal GB and no biliary dilation -lipase normalized and abd pain resolved. -08/15: Started on clear liquids (for which he is tolerating). Advanced to low res idue diet-- tolerating this (3) Alcoholic hepatitis: Plan: Patient with acute alcoholic hepatitis. SAN=426, XWL=634, Tbili=1.6 Patient with normal platelets MDF = 4.4. Good prognosis. No indication for treatment with steroids -Encourage abstinence from EtOH -RUQ US shows hepatic steatosis/fatty liver with normal GB and ducts (4) CABELLO (dyspnea on exertion): Plan: - new complaint as of 08/16. Uncertain significance. No hypoxemia - CTA done showing no acute cardiopulmonary process. no evidence of PE. Trace pleural effusions noted - Echocardiogram done given longstanding history of alcohol abuse surprisingly with preserved EF of 55 to 60% (5) Esophagitis: Plan: - esophageal thickening seen on imaging. - presented with abd pain, N/V (which was likely from pancreatitis but esophagitis may be contributing) still with intermittent epigastric discomfortlikely related to esophagitis - on Pepcid/Protonix for GI prophylaxis. Empirically added carafate on 08/16 (which patient is now refusing per RN on 08/19) - will need GI consult upon D/C for EGD (would not perform this now given active W/D- although stable)-Unless active signs of acute blood loss. D/W Dr. Garcia who agreed * would need GI FU not only for evidence of esophagitis but also screening of liver disease given his EtOH abuse. Need EGD to look for varices - Hgb stable (did drop from 13.9 to 11.4 but likely dilutional drop given 8.8L IVF given during this hospitalization) (6) Metabolic acidosis: Plan: Patient with gapped metabolic acidosis with pH=7.21, pCO2=30, serum HCO3=10, AG=25. Normal renal function, Lactate=1.6 -Suspect alcoholic ketoacidosis. Higher than expected pCO2 possible mild respiratory acidosis as well. Patient presented similarly in the past. He does have mildly elevated non-fasting BSG of 202 with no documented history of diabetes. -Acidosis has since resolved. Anion gap closed. Serum bicarb normallikely all alcohol related (7) Hypertensive urgency: Plan: -No prior h/o HTN diagnosis and takes no anti-hypertensives -Hydralazine 10mg IV q6h prn on board -Suspect HTN secondary to withdrawal -Given mild tachycardia and acute alcohol withdrawal, added oral beta-blockade--> HR 89, BP 110/74 (8) Impaired fasting glucose: Plan: -Likely related to pancreatitis from alcohol abuse -A1c ordered and normal at 5.5 (9) Anxiety: Plan: Chronic -Continue Fluoxetine 20mg po daily -staff encouraged NOT to utilize IV Ativan for anxiety and only for acute ETOH W/D symptoms. -added BuSpar (10) Hyponatremia: Plan: Likely ETOH Potomania -Na= 126 on arrival, Now 132 with IVF (11) Electrolyte abnormality: Plan: -Hypokalemiareplace -Hypophosphatemiareplaced/resolved (12) Tobacco abuse: Plan: Nicotine withdrawal likely contributing to his headache Patient has refused nicotine patch up until this point but now agreeable Can utilize Tylenol for pain (max 2 g a day given underlying liver disease from alcohol abuse). Avoid NSAIDs given esophagitis (13) Low back pain: Plan: Chronic and predates this hospital stay Avoid opioid medications given history of alcohol abuse/dependence Avoid NSAIDs given esophagitis Avoid Ultram as this lowers the seizure threshold (given recent EtOH detox, would avoid this) Can utilize Tylenol (with max 2 g/day) in addition to a Lidoderm patch Plan: PT/OT recommending d/c to rehab--patient is medically and hemodynamically stable for d/c, referrals sent, awaiting acceptance and bed availability Additional referrals sent to [facility], and [facility], still awaiting word back Sister updated on 08/17 Plan of care will be discussed with Dr. Coley. Admission and Anticipated Discharge Date Admission Date: August 13, 2021 Subjective Patient seen on daily rounds today. Continues to have vague and multiple complaints. Today he reports headache. Has been an ongoing complaint. In addition, reports low back pain (for which he says is chronic for him). Review of Systems Review of Systems: All systems reviewed and are unremarkable except as noted in HPI and below Denies fevers, chills, headache, nasal congestion, sore throat, cough, chest pain, palpitations, orthopnea, PND, abdominal pain, nausea, vomiting, diarrhea, constipation, hematuria, frequency, back pain, joint pain or swelling, easy bruising or bleeding, skin lesions or rashes. Physical Exam Physical Exam: General: Resting comfortably in his hospital bed. Sleeping upon presentation into the room. Does awaken. Not agitated. Not tremulous. Not diaphoretic. NAD. HEENT: Head is AT/NC. Buccal mucosa is moist and pink Neck: No JVD. Negative hepatojugular reflex Cardiac: RRR at present with 1/6 DEWEY. Lungs: CTA without W/R/R Abdomen: Normoactive X4. Abdomen soft. Mild epigastric discomfort upon palpation. Tenderness along the axillary lower rib on the right. Extremities: No peripheral clubbing cyanosis or edema Neuro: A&O X4. Cranial nerves II through XII are grossly intact. No focal neuro deficits Skin: No obvious skin lesions or rashes Psych: Appropriate affect. Pleasant and cooperative Results & Data Results & Data ([facility]) Vital Signs (Past 12 Hours) Vital Signs Temp Pulse Resp BP Pulse Ox Pulse Ox 08/20/21 08:00 96 08/20/21 07:31 36.8 C 74 16 130/90 95 PG Care Time/CCT Total # of Minutes Spent Total Time Spent with Patient: Total time spent is greater than 50% in coordination of care (as documented) at patient's floor/unit and/or counseling patient: Coding Level of Care Code 10850 Subseq Hosp Care Lvl 2 Diagnoses Alcohol withdrawal F10.239 Acute pancreatitis K85.90 Alcoholic hepatitis K70.10 CABELLO (dyspnea on exertion) R06.00 Esophagitis K20.90 Metabolic acidosis E87.2 Hypertensive urgency I16.0 Impaired fasting glucose R73.01 Anxiety F41.9 Hyponatremia E87.1 Electrolyte abnormality E87.8 Tobacco abuse Z72.0 Low back pain M54.50
[2021-08-20] MEDS: ACETAMINOPHEN 500 MG TAB PO PRN ×3 (12:01→23:15)
[2021-08-20] MEDS: LIDOCAINE 5% 1 PATCH TD SCH (12:01)
[2021-08-20] MEDS: MELATONIN 3 MG TAB PO PRN (23:15)
[2021-08-21] MEDS: ACETAMINOPHEN 500 MG TAB PO PRN ×4 (03:37→22:48)
[2021-08-21] MEDS: ALUMINUM/MAGNESIUM SUSP 30 ML UDC PO PRN (03:38)
[2021-08-21] MEDS: LIDOCAINE 5% 1 PATCH TD SCH (09:09)
[2021-08-21] MEDS: FOLIC ACID 1 MG TAB PO SCH (09:12)
[2021-08-21] MEDS: PANTOprazole 40 MG TAB PO SCH ×2 (09:12→21:00)
[2021-08-21] MEDS: busPIRone 5 MG TAB PO SCH ×2 (09:12→21:00)
[2021-08-21] MEDS: METOPROLOL TARTRATE 25 MG TAB PO SCH ×2 (09:12→21:00)
[2021-08-21] MEDS: FLUoxetine HCL 20 MG CAP PO SCH (09:12)
[2021-08-21] MEDS: FAMOTIDINE 20 MG TAB PO SCH ×2 (09:12→21:00)
[2021-08-21] MEDS: THIAMINE HCL 100 MG TAB PO SCH (09:12)
[2021-08-21] MEDS: SUCRALFATE 1 GM TAB PO SCH ×4 (09:13→21:00)
[2021-08-21] MEDS: NICOTINE 14 MG/24 HR PATCH TD SCH (09:13)
--- NOTE | 2021-08-21 13:50 | Hospitalist Progress Note ---
Date of Service August 21, 2021 Assessment & Plan (1) Alcohol withdrawal: Plan: 50yo male with longstanding history of EtOH abuse, remote history of withdrawal seizure presenting with EtOH withdrawal. Patient drinks approximately "1 handle every 2-3 days". switched to beer in attempts to "taper" prior to this hospitalization. Last drink was 1 hour MAGISTRATE. Tx in ED= banana bag, Librium 50mg PO and Ativan 1mg IV -Admitted for acute ETOH W/D monitoring. -AWSS with IV Ativan as needed (based on CIWA score) -Decreased Ativan dosing as to ovoid over sedation (as seemed to be given generously) -Limited withdrawal symptoms apparent (mildly tremulous and complains of abdominal pain) but otherwise he is awake and alert, afebrile, not diaphoretic, no longer tachycardic, no nausea or vomiting, is not agitated/restless or irritable -Continue Librium taper/Gabapentin Taper -Thiamine 100mg -Folate 1mg -D/W patient recommendations for IP rehab. As of 08/15 and 08/16= was "undecided". 08/17 is "agreeable" to inpatient rehab but his is c/o significant weakness and therapy is recommending physical rehabilitation upon d/c (2) Acute pancreatitis: Plan: Patient with epigastric abdominal pain, elevated Lipase to 1709. Most likely EtOH Pancreatitis -Has been n.p.o. with IV hydration -suspect pancreatitis 2/2 to ETOH abuse/use -given uptrending LFTs, persistent pain (which may be 2/2 acute ETOH W/D) and pancreatitis--> RUQ U/S done showing normal GB and no biliary dilation -lipase normalized and abd pain resolved. -08/15: Started on clear liquids (for which he is tolerating). Advanced to low res idue diet-- tolerating this (3) Alcoholic hepatitis: Plan: Patient with acute alcoholic hepatitis. OQX=604, SLP=010, Tbili=1.6 Patient with normal platelets MDF = 4.4. Good prognosis. No indication for treatment with steroids -Encourage abstinence from EtOH -RUQ US shows hepatic steatosis/fatty liver with normal GB and ducts (4) CABELLO (dyspnea on exertion): Plan: - new complaint as of 08/16. Uncertain significance. No hypoxemia - CTA done showing no acute cardiopulmonary process. no evidence of PE. Trace pleural effusions noted - Echocardiogram done given longstanding history of alcohol abuse surprisingly with preserved EF of 55 to 60% (5) Esophagitis: Plan: - esophageal thickening seen on imaging. - presented with abd pain, N/V (which was likely from pancreatitis but esophagitis may be contributing) still with intermittent epigastric discomfortlikely related to esophagitis - on Pepcid/Protonix for GI prophylaxis. Empirically added carafate on 08/16 (which patient is now refusing per RN on 08/19) - will need GI consult upon D/C for EGD (would not perform this now given active W/D- although stable)-Unless active signs of acute blood loss. D/W Dr. Garcia who agreed * would need GI FU not only for evidence of esophagitis but also screening of liver disease given his EtOH abuse. Need EGD to look for varices - Hgb stable (did drop from 13.9 to 11.4 but likely dilutional drop given 8.8L IVF given during this hospitalization) (6) Metabolic acidosis: Plan: Patient with gapped metabolic acidosis with pH=7.21, pCO2=30, serum HCO3=10, AG=25. Normal renal function, Lactate=1.6 -Suspect alcoholic ketoacidosis. Higher than expected pCO2 possible mild respiratory acidosis as well. Patient presented similarly in the past. He does have mildly elevated non-fasting BSG of 202 with no documented history of diabetes. -Acidosis has since resolved. Anion gap closed. Serum bicarb normallikely all alcohol related (7) Hypertensive urgency: Plan: -No prior h/o HTN diagnosis and takes no anti-hypertensives -Hydralazine 10mg IV q6h prn on board -Suspect HTN secondary to withdrawal -Given mild tachycardia and acute alcohol withdrawal, added oral beta-blockade--> HR 89, BP 110/74 (8) Impaired fasting glucose: Plan: -Likely related to pancreatitis from alcohol abuse -A1c ordered and normal at 5.5 (9) Anxiety: Plan: Chronic -Continue Fluoxetine 20mg po daily -staff encouraged NOT to utilize IV Ativan for anxiety and only for acute ETOH W/D symptoms. -added BuSpar (10) Hyponatremia: Plan: Likely ETOH Potomania -Na= 126 on arrival, Now 132 with IVF (11) Electrolyte abnormality: Plan: -Hypokalemiareplace -Hypophosphatemiareplaced/resolved (12) Tobacco abuse: Plan: Nicotine withdrawal likely contributing to his headache Patient has refused nicotine patch up until this point but now agreeable Can utilize Tylenol for pain (max 2 g a day given underlying liver disease from alcohol abuse). Avoid NSAIDs given esophagitis (13) Low back pain: Plan: Chronic and predates this hospital stay Avoid opioid medications given history of alcohol abuse/dependence Avoid NSAIDs given esophagitis Avoid Ultram as this lowers the seizure threshold (given recent EtOH detox, would avoid this) Can utilize Tylenol (with max 2 g/day) in addition to a Lidoderm patch Plan: PT/OT recommending d/c to rehab--patient is medically and hemodynamically stable for d/c, referrals sent, awaiting acceptance and bed availability Additional referrals sent to [facility], [facility], and [facility]--[facility] declined, others are pending Sister updated on 08/17 Plan of care will be discussed with Dr. Coley. Admission and Anticipated Discharge Date Admission Date: August 13, 2021 Subjective Patient seen on daily rounds today. This morning, pt reports not sleeping well last night. Has no other specific complaints. Review of Systems Review of Systems: All systems reviewed and are unremarkable except as noted in HPI and below Denies fevers, chills, headache, nasal congestion, sore throat, cough, chest pain, palpitations, orthopnea, PND, abdominal pain, nausea, vomiting, diarrhea, constipation, hematuria, frequency, back pain, joint pain or swelling, easy bruising or bleeding, skin lesions or rashes. Physical Exam Physical Exam: GENERAL: 50 yo well-developed, well-nourished WM. NAD. LUNGS: Clear to auscultation bilaterally. No W/R/R. CARDIOVASCULAR: Regular rate and rhythm. No M/G/R. ABDOMEN: Soft, nontender, nondistended. BS normal x 4 quad. EXTREMITIES: No edema. Non-tender. Peripheral pulses +2/4. NEUROLOGIC: A&O x3. No focal neurological deficits. PSYCHIATRIC: Cooperative. Appropriate mood and affect. SKIN: Warm, dry, intact. No rashes or lesions. Results & Data Results & Data ([facility]) Vital Signs (Past 12 Hours) Vital Signs Temp Pulse Resp BP Pulse Ox 05/15/22 07:10 36.7 C 66 16 120/80 96 PG Care Time/CCT Total # of Minutes Spent Total Time Spent with Patient: Total time spent is greater than 50% in coordination of care (as documented) at patient's floor/unit and/or counseling patient: Coding Level of Care Code 87485 Subseq Hosp Care Lvl 2 Diagnoses Alcohol withdrawal F10.239 Acute pancreatitis K85.90 Alcoholic hepatitis K70.10 CABELLO (dyspnea on exertion) R06.00 Esophagitis K20.90 Metabolic acidosis E87.2 Hypertensive urgency I16.0 Impaired fasting glucose R73.01 Anxiety F41.9 Hyponatremia E87.1 Electrolyte abnormality E87.8 Tobacco abuse Z72.0 Low back pain M54.50
[2021-08-21] MEDS: MELATONIN 3 MG TAB PO PRN (22:48)
[2021-08-22] MEDS: busPIRone 5 MG TAB PO SCH (08:25)
[2021-08-22] MEDS: THIAMINE HCL 100 MG TAB PO SCH (08:25)
[2021-08-22] MEDS: FOLIC ACID 1 MG TAB PO SCH (08:25)
[2021-08-22] MEDS: FAMOTIDINE 20 MG TAB PO SCH (08:25)
[2021-08-22] MEDS: SUCRALFATE 1 GM TAB PO SCH ×3 (08:25→16:26)
[2021-08-22] MEDS: PANTOprazole 40 MG TAB PO SCH (08:25)
[2021-08-22] MEDS: METOPROLOL TARTRATE 25 MG TAB PO SCH (08:26)
[2021-08-22] MEDS: LIDOCAINE 5% 1 PATCH TD SCH (08:26)
[2021-08-22] MEDS: FLUoxetine HCL 20 MG CAP PO SCH (08:26)
[2021-08-22] MEDS: NICOTINE 14 MG/24 HR PATCH TD SCH (08:27)
[2021-08-22] MEDS: ACETAMINOPHEN 500 MG TAB PO PRN (12:49)
--- NOTE | 2021-08-22 13:20 | Discharge Summary ---
Date of Service August 22, 2021 Admission HPI Per Admitting Provider Uday Smith is a 50yo male with history of HTN, EtOH abuse presenting with several complaints. Patient reports one day of band-like upper abdominal pain. Pain is dull in nature, 8/10 in severity. No radiation. Also with nausea and 3 episodes on non-bloody emesis with dry heaving. Patient also endorses shortness of breath, generalized weakness and heartburn x 1 day. Patient with history of EtOH abuse and has been hospitalized in the past for withdrawal. He has history of EtOH withdrawal seizures many years ago. He reports drinking approximately one 750mL bottle of vodka daily. If he buys a handle of vodka it lasts him about 3 days (appx 13 - 17 drinks daily). He has been trying to cut back. He last drank a bottle of vodka on 08/12/21. Today 08/13/21 he only drank 4 beers and some water. Last drink 08/13/21 at 19:00. He began feeling some withdrawal symptoms in form of tremors and shakes this AM. In the ER patient noted to be tremulous, complaining of heart burn. No additional complaints at this time. He denies fever but has been having some chills. Denies chest pain, palpitations, dysuria. He had one episode of non- bloody diarrhea prior to coming in. ER Course: NSS x 2L, Librium 50mg, Nicotine patch, Ativan 1mg IV, Banana bag, Protonix 40mg IV, GI Cocktail, Morphine 4mg IV Principal Diagnosis 1. Acute alcohol withdrawal 2. Alcohol-induced pancreatitis Discharge Exam GENERAL: 50 yo well-developed, well-nourished WM. NAD. LUNGS: Clear to auscultation bilaterally. No W/R/R. CARDIOVASCULAR: Regular rate and rhythm. No M/G/R. ABDOMEN: Soft, nontender, nondistended. BS normal x 4 quad. EXTREMITIES: No edema. Non-tender. Peripheral pulses +2/4. NEUROLOGIC: A&O x3. No focal neurological deficits. PSYCHIATRIC: Cooperative. Appropriate mood and affect. SKIN: Warm, dry, intact. No rashes or lesions. Discharge Data Allergies Allergy/AdvReac Type Severity Reaction Status Date / Time No Known Allergies Allergy Verified 08/13/21 22:57 Consultations 08/14/21 00:42 ED Decision to Admit Stat Ordered Studies Chest X-Ray 08/13/21 22:02 XR chest 1V portable CLINICAL HISTORY: Weakness. COMPARISON STUDY: Chest radiograph December 05, 2018. FINDINGS: Lung volumes are normal. Lungs are clear. There is no pneumothorax or pleural effusion. Cardiac size is normal. Mediastinal contours are normal. There is no evidence for pulmonary edema. IMPRESSION: No acute cardiopulmonary findings. ACT 112: Negative or not required by law. Electronically signed by: Jacobo Land M.D. 08/14/2021 8:12 AM Abdomen/Pelvis CT 08/13/21 22:[address] WITH IV CONTRAST CT DOSE: 823.30 mGy.cm HISTORY: Acute generalized abdominal pain mid abd pain, etoh abuse TECHNIQUE: Multiaxial CT images of the abdomen and pelvis were performed following the IV administration of 94 cc of Optiray, A dose lowering technique was utilized adhering to the principles of ALARA. COMPARISON STUDY: CT abdomen pelvis 05/23/2012 FINDINGS: Clear lung bases. No pneumatosis or pneumoperitoneum. Coronary artery calcifications. Mild cardiomegaly. Diminutive spleen. Thickening of the adrenal glands suggestive of hyperplasia. Unremarkable gallbladder. Severe hepatic steatosis. No evidence of cirrhosis. Patency of the hepatic and portal veins. The splenic vein also appears patent. Mild to moderate interstitial and peripancreatic inflammation with trace free fluid within the lesser sac. Homo geneous enhancement of the pancreatic parenchyma. No pancreatic ductal dilation or pancreatic mass identified. No biliary ductal dilation. Unremarkable kidneys. No hydronephrosis. Urinary bladder and prostate appear to be within normal limits. Atherosclerosis of the aorta without aneurysm. No lymphadenopathy. Moderate distal esophageal wall thickening with tiny hiatal hernia and mild adjacent inflammatory stranding. Mild wall thickening of the duodenum. No bowel obstruction. Mild colonic diverticulosis. Normal appendix. Unremarkable soft tissues. Degenerative changes of the spine, pelvis and hips. IMPRESSION: 1. Acute pancreatitis. No pancreatic ductal dilation, acute peripancreatic fluid collection or evidence of pancreatic necrosis. 2. Wall thickening of the distal esophagus with trace adjacent free fluid is suggestive of esophagitis. 3. Mild wall thickening the duodenum is likely reactive. 4. No bowel obstruction. 5. Severe hepatic steatosis. ACT 112: Negative or not required by law. The above report was generated using voice recognition software. It may contain grammatical, syntax or spelling errors. Electronically signed by: Seymour Corcoran M.D. 08/14/2021 8:03 AM Liver Ultrasound 08/15/21 15:26 ABDOMINAL ULTRASOUND, RIGHT UPPER QUADRANT HISTORY: pancreatitis, transaminitis. COMPARISON: Abdomen and pelvis CT 08/13/2021. FINDINGS: Pancreas: Heterogeneous echotexture within the pancreas consistent the patient's known acute pancreatitis. Liver: The liver is echogenic consistent with fatty change. Enlarged measuring 21 cm in length. Gallbladder: No gallbladder wall thickening. No gallstones. CBD: 6 mm. Right kidney: No hydronephrosis. IMPRESSION: 1. Heterogeneous echotexture within the pancreas consistent the patient's known acute pancreatitis. 2. Hepatic steatosis. 3. Normal gallbladder. ACT 112: Negative or not required by law. Electronically signed by: Michael Erickson M.D. 08/15/2021 5:28 PM Chest CTA 08/16/21 08:52 CT ANGIOGRAM OF THE CHEST CLINICAL HISTORY: Atypical chest pain. COMPARISON STUDY: Chest x-ray dated 08/13/2021. TECHNIQUE: Following the IV administration of 120 cc of Optiray 320, CT angiogram of the chest was performed from the upper abdomen to the thoracic inlet utilizing the pulmonary embolus protocol. Images are reviewed in the axial, sagittal, and coronal planes. 3-D MIPS images are created and assessed. IV contrast was administered without complication. A dose lowering technique was utilized adhering to the principles of ALARA. CT DOSE: 512.02 mGycm FINDINGS: Thyroid: Imaged portions of the thyroid gland are normal in size and attenuation. Thoracic aorta: The thoracic aorta is normal in caliber and demonstrates standard 3-vessel arch anatomy. No dissection is seen. Pulmonary vasculature: The pulmonary trunk is normal in caliber. There are no filling defects identified in main, lobar, or proximal segmental pulmonary branches to suggest pulmonary embolus. Evaluation of the segmental and subsegmental branches is degraded by motion artifact. Heart: The heart is mildly enlarged and without pericardial effusion. The coronary arteries are densely calcified. Lungs and pleural spaces: Evaluation of the lung parenchyma is compromised by motion artifact. The trachea and central airways appear clear patchy There are small pleural effusions with dependent atelectasis. No airspace consolidation is seen typical for pneumonia. There is a 4 mm pulmonary nodule in the left lower lobe seen on image #108. Mediastinum: There is no mediastinal lymphadenopathy. Noelle: Clear. Axillae: There is no axillary lymphadenopathy. Upper abdomen: There is severe hepatic steatosis. A small hiatal hernia is observed. Circumferential wall thickening suggested in the mid to distal esophagus. Skeletal structures: No lytic or blastic bony lesions are seen. Spondylotic change is seen throughout the thoracic spine. There are healed bilateral rib fractures. IMPRESSION: 1. Motion compromised examination. 2. There is no evidence of pulmonary embolus in the main, lobar, or proximal segmental pulmonary arteries. 3. Mild cardiac enlargement and advanced coronary artery calcification. 4. Small pleural effusions. 5. Severe hepatic steatosis. 6. Circumferential wall thickening is suggested involving the mid to distal esophagus. Correlate clinically for evidence of esophagitis. This could be further assessed with endoscopy if clinically warranted. 7. There is a 4 mm left lower lobe pulmonary nodule. This is pathologically indeterminant, and if clinically warranted this can be followed as per the Fleischner criteria. 8. Additional findings as above. Please refer to below summary of Fleischner criteria recommendations for follow- up of incidental CT nodules (Rosenda Pierce, Guidelines for management of small pulmonary nodules detected on CT scans: A statement from the Fleischner Society, Radiology 237: [phone].) SOLID NODULES Solitary nodule size: <6 mm * low risk patients: no follow-up needed * high risk patients: optional CT at 12 months Solitary nodule size: 6-8 mm * low risk patients: follow-up at 6-12 months, then consider further follow-up at 18-24 months * high risk patients: initial follow-up CT at 6-12 months and then at 18-24 months if no change Solitary nodule size: >8 mm * either low or high risk patients - consider follow-up CT at 3 months, and/or CT-PET, and/or biopsy Multiple nodules size: <6 mm * low risk patients: no routine follow-up * high risk patients: optional CT at 12 months Multiple nodules size: 6-8 mm * low risk patients: follow-up at 3-6 months, then consider further follow-up at 18-24 months * high risk patients: follow-up at 3-6 months, then at 18-24 months if no change Multiple nodules size: >8 mm * low risk patients: follow-up at 3-6 months, then consider further follow-up at 18-24 months * high risk patients: follow-up at 3-6 months, then at 18-24 months if no change Note: newly detected indeterminate nodule in persons 35 years of age or older. * low risk patients: minimal or absent history of smoking and/or other known risk factors * high risk patients: history of smoking or of other known risk factors (e.g. first degree relative with lung cancer, or exposure to asbestos, radon, uranium) * if a nodule up to 8 mm is partly solid or is ground glass further follow-up is required after 24 months to exclude possible slow growing adenocarcinoma (TAIWO) SUBSOLID NODULES Solitary pure ground-glass nodule * nodule size <6 mm - no CT follow-up required * nodule size >=6 mm - follow-up CT at 6-12 months, then every 2 years until 5 years Solitary part-solid nodule * nodule size <6 mm - no CT follow-up required * nodule size >=6 mm - follow-up CT at 3-6 months. If unchanged, and solid component remains <6 mm, then annual follow-up for 5 years Multiple subsolid nodules * nodule size <6 mm - follow-up CT at 3-6 months, consider further follow-up at 2 and 4 years if stable * nodule size >=6 mm - follow-up CT at 3-6 months, subsequent management based on the most suspicious nodule(s) ACT 112: Positive. There are findings on this exam that require communication between the performing entity and the patient following Patient Test Result Information Act ([place] Act 112) guidelines. Electronically signed by: Mario Colindres M.D. 08/16/2021 10:28 AM Hospital Course (1) Alcohol withdrawal: 50yo male with longstanding history of EtOH abuse, remote history of withdrawal seizure presenting with EtOH withdrawal. Patient drinks approximately "1 handle every 2-3 days". switched to beer in attempts to "taper" prior to this hospitalization. Last drink was 1 hour [employer]. Tx in ED= banana bag, Librium 50mg PO and Ativan 1mg IV -Admitted for acute ETOH W/D monitoring. -AWSS with IV Ativan as needed (based on CIWA score) -Decreased Ativan dosing as to ovoid over sedation (as seemed to be given generously) -Limited withdrawal symptoms apparent (mildly tremulous and complains of abdominal pain) but otherwise he is awake and alert, afebrile, not diaphoretic, no longer tachycardic, no nausea or vomiting, is not agitated/restless or irritable -Completed Librium taper/Gabapentin Taper -Thiamine 100mg, Folate 1mg, and multivitamin started and advised to be continued daily upon d/c -D/W patient recommendations for IP rehab. As of 08/15 and 08/16= was "undecided". 08/17 is "agreeable" to inpatient rehab but his is c/o significant weakness and therapy is recommending physical rehabilitation upon d/c (2) Acute pancreatitis: Patient with epigastric abdominal pain, elevated Lipase to 1709. Most likely EtOH Pancreatitis -Initially had been n.p.o. with IV hydration -suspect pancreatitis 2/2 to ETOH abuse/use -given uptrending LFTs, persistent pain (which may be 2/2 acute ETOH W/D) and pancreatitis--> RUQ U/S done showing normal GB and no biliary dilation -lipase normalized and abd pain resolved. -08/15: Started on clear liquids (for which he is tolerating). Advanced to low residue diet-- tolerating this (3) Alcoholic hepatitis: Patient with acute alcoholic hepatitis. FBW=039, JVD=938, Tbili=1.6 Patient with normal platelets MDF = 4.4. Good prognosis. No indication for treatment with steroids -Encourage abstinence from EtOH -RUQ US shows hepatic steatosis/fatty liver with normal GB and ducts (4) CABELLO (dyspnea on exertion): - new complaint as of 08/16. Uncertain significance. No hypoxemia - CTA done showing no acute cardiopulmonary process. no evidence of PE. Trace pleural effusions noted - Echocardiogram done given longstanding history of alcohol abuse surprisingly with preserved EF of 55 to 60% (5) Esophagitis: - esophageal thickening seen on imaging. - presented with abd pain, N/V (which was likely from pancreatitis but esophagitis may be contributing) still with intermittent epigastric discomfortlikely related to esophagitis - on Pepcid/Protonix for GI prophylaxis. Empirically added carafate on 08/16 (which patient is now refusing per RN on 08/19) - will need GI consult upon D/C for EGD (would not perform this now given active W/D- although stable)-Unless active signs of acute blood loss. D/W Dr. Garcia who agreed * would consider GI FU not only for evidence of esophagitis but also screening of liver disease given his EtOH abuse. Would benefit from EGD to look for varices - Hgb stable (did drop from 13.9 to 11.4 but likely dilutional drop given 8.8L IVF given during this hospitalization) (6) Metabolic acidosis: Patient with gapped metabolic acidosis with pH=7.21, pCO2=30, serum HCO3=10, AG=25. Normal renal function, Lactate=1.6 -Suspect alcoholic ketoacidosis. Higher than expected pCO2 possible mild respiratory acidosis as well. Patient presented similarly in the past. He does have mildly elevated non-fasting BSG of 202 with no documented history of diabetes. -Acidosis has since resolved. Anion gap closed. Serum bicarb normallikely all alcohol related (7) Hypertensive urgency: -No prior h/o HTN diagnosis and takes no anti-hypertensives -Hydralazine 10mg IV q6h prn on board -Suspect HTN secondary to withdrawal -Given mild tachycardia and acute alcohol withdrawal, added oral beta-blockade which he is tolerating well, will continue upon d/c (8) Impaired fasting glucose: -Likely related to pancreatitis from alcohol abuse -A1c ordered and normal at 5.5 (9) Anxiety: Chronic -Continue Fluoxetine 20mg po daily -staff encouraged NOT to utilize IV Ativan for anxiety and only for acute ETOH W/D symptoms. -added BuSpar, tolerating this well, rx will be sent to pharmacy for him to continue (10) Hyponatremia: Likely ETOH Potomania -Na= 126 on arrival, Now 132 with IVF (11) Electrolyte abnormality: -Hypokalemiareplaced/resolved -Hypophosphatemiareplaced/resolved (12) Tobacco abuse: Nicotine withdrawal likely contributing to his headache Patient has refused nicotine patch up until this point but now agreeable Can utilize Tylenol for pain (max 2 g a day given underlying liver disease from alcohol abuse). Avoid NSAIDs given esophagitis (13) Low back pain: Chronic and predates this hospital stay Avoid opioid medications given history of alcohol abuse/dependence Avoid NSAIDs given esophagitis Avoid Ultram as this lowers the seizure threshold (given recent EtOH detox, would avoid this) Can utilize Tylenol (with max 2 g/day) in addition to a Lidoderm patches, pt requested rx for patches and have been sent to pharmacy At this time, pt is medically and hemodynamically stable for discharge. Unfortunately, despite CM reaching out to multiple facilities, some have declined and others have not bothered to return phone calls. I discussed case with PT who worked with patient on 08/22 and they noted that he did much better during session today and felt he could return home with home health and a wheeled walker. He is not interested in inpatient alcohol rehab. I have strongly advised that he participate in alcohol rehab as an outpatient and establish a relationship with a counselor to ensure that his alcohol cessation is successful. He verbalized understanding. Meds sent to pharmacy. Advised f/u with pcp within 1 week of discharge or sooner if needed. He was incidentally noted to have a LLL pulmonary nodule on his CTA which by criteria, since he is a smoker, could consider a repeat CT in 12 months. This would be at the discretion of his PCP. Pt will be discharged home with home health today which is to be arranged by case management. Plan of care has been d/w Dr. Coley who has also seen and evaluated this patient and is in agreement with the aforementioned. Total Time Total Time Spent Total Time Spent (In Minutes): >30 minutes Discharge Plan Discharge Items Patient Disposition: Home - Home Health Services Reason For Visit: ETOH WITHDRAWAL, PANCREATITIS Discharge Diagnosis: Alcohol withdrawal Alcohol-induced pancreatitis Condition on Discharge: Fair Activity: As commented below Activity Comment: use a walker with walking Non-emergency contact: Primary Care Provider Call non-emergency contact if: you have any medication questions Follow-up/Referrals: Nabor Garcia MD [Physician] - (referral for EGD d/t esophagitis) Barry Camacho MD [Primary Care Provider] - (w/in 1 week of d/c) Diet: Regular Addtl Attending Provider Instructions: You were hospitalized due to acute alcohol withdrawal which also caused pancreatitis. Pancreatitis is an inflammation in your pancreas which can occur as a direct result of too much alcohol consumption. In order to treat this condition, you were not given anything to eat or drink to rest your pancreas and hydrated with intravenous fluids. You were placed on medications to counter-act the affect of alcohol withdrawal symptoms and tapered down off of them. You have also been started on a medication to help with anxiety called Buspirone. This medication will be continued upon discharge and is to be taken twice per day, everyday. A prescription has been sent to your pharmacy. You were also placed on a medication called Metoprolol tartrate. This was done to help keep your heart rate and blood pressure under control. We would advise that you stay on this medication and a prescription has been sent to your pharmacy. You were fortunate in that you did not experience significant withdrawal symptoms. But it will be very important moving forward to continue taking the following supplements: Thiamine, Folic Acid, and a multivitamin daily. Lastly, you are being prescribed Protonix 40mg to be taken once a day, in the morning, 30 minutes before first meal of the day. This is to help suppress acid production in the stomach which can reflux up into the esophagus causing indigestion/heart burn. Try to follow a GERD (gastroesophageal reflux disease) diet, avoiding citrus fruits/juices, coffee, tea, chocolate, and spicy foods. Would recommend that you follow up with the stomach doctors upon discharge so they can perform an upper endoscopy due to inflammation in your esophagus. You can call Dr. Garcia's office to arrange an appointment. It is vital that you DO NOT resume drinking alcohol upon your return home. We would STRONGLY advise that you seek a counselor as well as participate in outpatient alcohol rehabilitation. That in combination with the medications prescribed will make it more likely that you will be successful in your alcohol cessation and less likely to relapse. It is also strongly advised that you do not resume smoking. It is recommended that you follow up with your family doctor within 1 week of discharge from the hospital, or sooner, if needed. In the event of any questions/concerns, please contact the nonemergency number listed on your discharge paperwork. In the event of a medical emergency, call 911. Pending Studies at Discharge: No Stand-Alone Forms: My [facility], Smoking Cessation Medications and DC Order Prescriptions: New buspirone 5 mg Tablet 5 mg PO BID Qty: 60 RF: 0 thiamine HCl (vitamin B1) 100 mg Tablet 100 mg PO QAM Qty: 30 RF: 0 pantoprazole 40 mg Tablet,Delayed Release (Dr/Ec) 40 mg PO DAILY Qty: 30 RF: 0 folic acid 1 mg Tablet 1 mg PO QAM Qty: 30 RF: 0 metoprolol tartrate 25 mg Tablet 12.5 mg PO BID Qty: 60 RF: 0 lidocaine 5 % Adhesive Patch,Medicated 1 patch transdermal QAM Qty: 30 RF: 0 Continued multivitamin Tablet 1 tab PO DAILY RF: 0 fluoxetine 20 mg capsule 20 mg PO QAM RF: 0 Discontinued ibuprofen [Advil] 200 mg Tablet 400 mg PO Q6H PRN (Reason: Pain) RF: 0 Discharge Orders: Discharge Order (Routine); Ordered 08/22/21 Ordered By: Dominique Leiva Admission Data Admit Date/Time: 08/13/21 23:44 Attending Provider: Naeem Coley Admit Provider: Norma Morales Primary Care Provider: Barry Camacho Other Providers: [place] ; [facility] ; Norma Morales ; [facility] Other Interventions: Discharge Summary Assessment (RN) Last Done: 08/22/21 16:35 Supervising Physician Co-Signing Physician Notes I supervised Dominique Leiva PA-C on the care of this patient. I interviewed and examined the patient independently of her. The plan is as written in her note except for any following changes/exceptions: None Doing well today. Has improved to the point of being stable for home discharge which he is in agreement with. Coding Level of Care Code D/C DAY MANAGEMENT >30 MINS Diagnoses Alcohol withdrawal F10.239 Acute pancreatitis K85.90 Alcoholic hepatitis K70.10 CABELLO (dyspnea on exertion) R06.00 Esophagitis K20.90 Metabolic acidosis E87.2 Hypertensive urgency I16.0 Impaired fasting glucose R73.01 Anxiety F41.9 Hyponatremia E87.1 Electrolyte abnormality E87.8 Tobacco abuse Z72.0 Low back pain M54.50 Home Health Attestation I certify that this patient is under my care and that I, or a physicians res habilitation assistant working with me, had a face to-face encounter that meets the home health [id number] encounter requirements with this patient. The encounter with the patient was in whole, or in part, for the following medical condition, which is the primary reason for home health care (list medical condition): I certify that, based on my findings, the following services are medically necessary home health services: My clinical findings support the need for the above services because: Further, I certify that my clinical findings support that this patient is homebound (i.e. absences from home require considerable and taxing effort and are for medical reasons or sabianism services or infrequently or of short duration when for other reasons) because: Certification for Home Health Services: Based on the above findings, I certify that this patient is confined to the home and needs intermittent senior living care, physical therapy and/or speech therapy or continues to need occupational therapy. The patient is under my care, and I have initiated the establishment of the plan of care. This patient will be followed by a physician who will periodically review the plan of care.
== END 2021-08-22 18:02 | disposition home health service (06) | DRG 896 ==
LOC: ED 21:53 → SUATTDRO 23:44 → 2S 23:44 → 3W 08-19 18:18
DX: M54.50 Low back pain, unspecified; E87.1 Hypo-osmolality and hyponatremia; R73.01 Impaired fasting glucose; E83.39 Other disorders of phosphorus metabolism; K85.20 Alcohol induced acute pancreatitis without necrosis or infection; E87.2 Acidosis; K20.90 Esophagitis, unspecified without bleeding; F10.239 Alcohol dependence with withdrawal, unspecified; I16.0 Hypertensive urgency; F17.210 Nicotine dependence, cigarettes, uncomplicated; K70.10 Alcoholic hepatitis without ascites

== ENCOUNTER 2022-02-18 11:05 | Inpatient (IN) ==
[2022-02-18 11:59] LABS: Basophils # (auto) 0.01 K/uL (0-0.2); Basophils % (auto) 0.1 %; Hematocrit (blood only) 37.5 % (40.1-51.0); Hemoglobin 13.6 g/dl (14.0-18.0); Immature Granulocytes # (auto) 0.03 K/uL (0.00-0.02); Immature Granulocytes % (auto) 0.3 %; Lymphocytes # (auto) 0.92 K/uL (1.2-3.4); Lymphocytes % (auto) 9.9 %; Mean Corpuscular Hemoglobin 36.8 pg (25.0-34.0); Mean Corpuscular Hgb Conc 36.3 g/dL (32.0-36.0); Mean Corpuscular Volume 101.4 fL (80.0-100.0); Mean Platelet Volume 9.8 fL (9.4-12.4); Monocytes # (auto) 0.67 K/uL (0.24-0.82); Monocytes % (auto) 7.2 %; Neutrophils # (auto) 7.64 K/uL (1.4-6.5); Neutrophils % (auto) 82.5 %; Platelet Count 149 K/uL (130-400); RDW Coefficient of Variation 14.2 % (11.5-14.5); RDW Standard Deviation 52.8 fL (36.4-46.3); White Blood Count 9.27 K/ul (4.8-10.8)
[2022-02-18 12:30] LABS: Albumin Globulin Ratio 1.3 (0.9-2); Albumin Level 4.5 gm/dl (3.4-5.0); BUN Creatinine Ratio 12.3 (10-20); Bilirubin,Total 1.8 mg/dl (0.2-1.0); Calcium 8.3 mg/dl (8.5-10.1); Creatinine Clr Calc Pharmacy 149.7 ml/min; Est GFR (African American) 129.6 ml/min; Est GFR (Non-African American) 111.9 ml/min; Globulin 3.5 gm/dl (2.5-4.0)
[2022-02-18] MEDS ORDERED: GI COCKTAIL ED USE PO ONE (12:48)
[2022-02-18] MEDS ORDERED: MoRPHine SULFATE 2 MG/ML CARP IV STA (12:48)
[2022-02-18] MEDS ORDERED: SODIUM CHLORIDE 0.9% 1000ML 500 ML IV ONE (12:49)
--- NOTE | 2022-02-18 13:20 | Emergency Department Note ---
History of Present Illness General Chief complaint: Alcohol Withdrawal Stated complaint: DEPRESSION, ALCOHOL WITHDRAWL Time Seen by Provider: 02/18/22 12:40 History of Present Illness Maximum Pain Intensity: 7 51-year-old male presents to the ED with a chief complaint of alcohol withdrawa l. The patient states that he is shaky and having some epigastric abdominal pain. He states that he has been drinking heavily for the past few months. He reports that he is drinking about 35 5 ounce glasses of wine every 2 days. He recently switched to beer and has consumed a 12 pack of hard seltzer and 5 beers in the past day and a half. His last drink was this morning because he goes through withdrawal and shaking if he does not drink. He has not been eating well for the last couple of days. No other complaints at this time. He has been admitted to hospital for alcohol withdrawal previously. Home Medications Medication Instructions Recorded Confirmed Type fluoxetine 20 mg capsule 20 mg PO QAM 08/13/21 09/08/21 History multivitamin 1 tab PO DAILY 08/13/21 09/08/21 History buspirone 5 mg tablet 5 mg PO BID #60 tabs 09/08/21 09/08/21 Rx pantoprazole 40 mg tablet,delayed 40 mg PO DAILY #30 tabs 09/08/21 09/08/21 Rx release thiamine HCl (vitamin B1) 100 mg 100 mg PO QAM #30 tabs 09/08/21 09/08/21 Rx tablet metoprolol tartrate 25 mg tablet 12.5 mg PO BID #60 tabs 09/20/21 Rx folic acid 1 mg tablet 1 mg PO QAM #30 tabs 10/24/21 Rx Allergies Allergy/AdvReac Type Severity Reaction Status Date / Time No Known Allergies Allergy Verified 09/08/21 17:33 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 Chronic alcohol use GI bleed Hypertension Hypertensive urgency Metabolic acidosis Sensory polyneuropathy Smokes 1 pack of cigarettes per day Surgical History No pertinent past surgical history Family History Other Adopted Social History Smoking Status: Never smoker Tobacco Type: Cigarettes packs per day: 1; Cigarettes Per Day: 10; Second Hand Exposure: No; Hx Alcohol Use: Yes Alcohol type: hard liquor Alcohol Intake Frequency Comment: 1/2 to one 5th of vodka daily, some beer Hx Substance Use: No Preferred Language: French Communication Ability: Effective Algebraist Required: No Beliefs That Will Affect Care: None Current Living Situation: Alone current occupational status: previously employed current occupation: Recently lost job working in an [employer] service How many Children do You have: 0 Feels Safe at Home: Yes Assistive Devices: None Review of Systems A total of 10 systems reviewed and were otherwise negative Physical Exam Vital Signs Vital Signs - 24 hr 02/18/22 11:23 02/18/22 12:24 02/18/22 12:30 Temperature 36.0 C L Temperature Source Temporal Artery Scan Pulse Rate 98 H 79 Pulse Rate from SpO2 Sensor 79 Respiratory Rate 20 22 Respiratory Effort / Characteristics Non-Labored Respiratory Depth Normal Blood Pressure 103/74 115/85 Blood Pressure Mean 83 95 Pulse Oximetry 91 96 Oxygen Delivery Method Room Air Sepsis Recent Fever Within 48 Hours No Sepsis New/Unexplained Change in Mental Status No Sepsis Action Taken by Nursing No Action Required 02/18/22 12:30 02/18/22 13:00 02/18/22 13:00 Temperature Temperature Source Pulse Rate 80 75 Pulse Rate from SpO2 Sensor 81 75 Respiratory Rate 16 22 Respiratory Effort / Characteristics Respiratory Depth Blood Pressure 124/88 Blood Pressure Mean 100 Pulse Oximetry 98 98 Oxygen Delivery Method Sepsis Recent Fever Within 48 Hours Sepsis New/Unexplained Change in Mental Status Sepsis Action Taken by Nursing CONSTITUTIONAL/VITAL SIGNS: Reviewed / noted above. GENERAL: Non-toxic in appearance. INTEGUMENTARY: Warm, dry, and [place]. HEAD: Normocephalic. EYES: without scleral icterus or trauma. ENT/OROPHARYNX: clear and moist. LYMPHADENOPATHY/NECK: Is supple without lymphadenopathy or meningismus. RESPIRATORY: Clear to auscultation bilaterally. No increased work of breathing. CARDIOVASCULAR: Regular rate and rhythm. GI/ABDOMEN: Soft and tender in the epigastric area. No organomegaly or pulsatile mass. EXTREMITIES: Warm and well perfused. BACK: No CVA tenderness. NEUROLOGICAL: Intact without focal deficits. PSYCHIATRIC: normal affect. MUSCULOSKELETAL: Normally developed with good muscle tone. TRIAGE NURSING DOCUMENTATION REVIEWED. Course Administered Medications Discontinued Medications Al Hydrox/Mg Hydrox/Simethicone (Gi Cocktail Ed Use) 1 dose PO ONE ONE Stop: 02/18/22 12:49 Last Admin: 02/18/22 13:02 Dose: 1 dose Documented By: [id number] Sodium Chloride (Nss 1000ml) 500 mls @ 999 mls/hr IV .Q31M ONE Stop: 02/18/22 13:19 Last Admin: 02/18/22 13:03 Dose: 999 mls/hr Documented By: [id number] Morphine Sulfate (Morphine Sulfate 2 Mg/Ml Carp) 2 mg IV NOW STA Stop: 02/18/22 12:49 Last Admin: 02/18/22 13:02 Dose: 2 mg Documented By: [id number] Medical Decision Making Differential Diagnosis Differential includes alcohol intoxication, alcohol withdrawal, pancreatitis, gastritis, dehydration, electrolyte abnormality, other. Medical Records Attestation: I reviewed the patient's medical records. Home Medications Current Medication List: was personally reviewed by me Laboratory Data Attestation: I reviewed the patient's lab results. Result diagrams: 02/18/22 11:40 02/18/22 11:40 Lab Results 02/18/22 02/18/22 02/18/22 Range/Units 11:40 11:40 11:40 WBC 9.27 (4.8-10.8) K/ul RBC 3.70 L (4.63-6.08) M/uL Hgb 13.6 L (14.0-18.0) g/dl Hct 37.5 L (40.1-51.0) % MCV 101.4 H (80.0-100.0) fL MCH 36.8 H (25.0-34.0) pg MCHC 36.3 H (32.0-36.0) g/dL RDW Std Deviation 52.8 H (36.4-46.3) fL RDW Coeff of Arturo 14.2 (11.5-14.5) % Plt Count 149 (130-400) K/uL MPV 9.8 (9.4-12.4) fL Immature Gran % (Auto) 0.3 % Neut % (Auto) 82.5 % Lymph % (Auto) 9.9 % [place] % (Auto) 7.2 % Eos % (Auto) 0.0 % Baso % (Auto) 0.1 % Neut # (Auto) 7.64 H (1.4-6.5) K/uL Lymph # (Auto) 0.92 L (1.2-3.4) K/uL [place] # (Auto) 0.67 (0.24-0.82) K/uL Eos # (Auto) 0.00 (0-0.50) K/uL Baso # (Auto) 0.01 (0-0.2) K/uL Immature Gran # (Auto) 0.03 H (0.00-0.02) K/uL Sodium 129 L (136-145) mmol/L Potassium 4.0 (3.5-5.1) mmol/L Chloride 93 L (98-107) mmol/L Carbon Dioxide 19 L (21-32) mmol/L Anion Gap 17 H (3-11) BUN 8 (6-23) mg/dl Creatinine 0.65 (0.6-1.4) mg/dl Est Cr Clr Drug Dosing 149.7 ml/min Est GFR ( Amer) 129.6 ml/min Est GFR (Non-Af Amer) 111.9 ml/min BUN/Creatinine Ratio 12.3 (10-20) Glucose 112 H (70-99(Fasting)) mg/dl Calcium 8.3 L (8.5-10.1) mg/dl Total Bilirubin 1.8 H (0.2-1.0) mg/dl AST 88 H (13-39) U/L ALT 53 H (7-52) U/L Alkaline Phosphatase 80 (34-104) U/L Total Protein 8.0 (6.0-8.3) gm/dl Albumin 4.5 (3.4-5.0) gm/dl Globulin 3.5 (2.5-4.0) gm/dl Albumin/Globulin Ratio 1.3 (0.9-2) Lipase (11-82) U/L Ethyl Alcohol mg/dL 219.1 H (<10.0) mg/dl 02/18/22 Range/Units 11:41 WBC (4.8-10.8) K/ul RBC (4.63-6.08) M/uL Hgb (14.0-18.0) g/dl Hct (40.1-51.0) % MCV (80.0-100.0) fL MCH (25.0-34.0) pg MCHC (32.0-36.0) g/dL RDW Std Deviation (36.4-46.3) fL RDW Coeff of Arturo (11.5-14.5) % Plt Count (130-400) K/uL MPV (9.4-12.4) fL Immature Gran % (Auto) % Neut % (Auto) % Lymph % (Auto) % [place] % (Auto) % Eos % (Auto) % Baso % (Auto) % Neut # (Auto) (1.4-6.5) K/uL Lymph # (Auto) (1.2-3.4) K/uL [place] # (Auto) (0.24-0.82) K/uL Eos # (Auto) (0-0.50) K/uL Baso # (Auto) (0-0.2) K/uL Immature Gran # (Auto) (0.00-0.02) K/uL Sodium (136-145) mmol/L Potassium (3.5-5.1) mmol/L Chloride (98-107) mmol/L Carbon Dioxide (21-32) mmol/L Anion Gap (3-11) BUN (6-23) mg/dl Creatinine (0.6-1.4) mg/dl Est Cr Clr Drug Dosing ml/min Est GFR ( Amer) ml/min Est GFR (Non-Af Amer) ml/min BUN/Creatinine Ratio (10-20) Glucose (70-99(Fasting)) mg/dl Calcium (8.5-10.1) mg/dl Total Bilirubin (0.2-1.0) mg/dl AST (13-39) U/L ALT (7-52) U/L Alkaline Phosphatase (34-104) U/L Total Protein (6.0-8.3) gm/dl Albumin (3.4-5.0) gm/dl Globulin (2.5-4.0) gm/dl Albumin/Globulin Ratio (0.9-2) Lipase 2471 H (11-82) U/L Ethyl Alcohol mg/dL (<10.0) mg/dl MDM Narrative 51-year-old male presents with concerns about alcohol withdrawal. Recently drinking heavily the past few months. Trying to wean himself off by drinking nonwhite items. Went through some withdrawal this morning with shaking. Has some epigastric abdominal pain but no nausea or vomiting. Alcohol today is 219. CBC shows a normal white blood cell count and hemoglobin. Chemistry panel shows a sodium of 129. The patient was treated with some IV fluids as well as some IV morphine for his epigastric abdominal discomfort as well as GI cocktail p.o. He will be seen by the hospitalist for further evaluation and care of his alcohol withdrawal. Impression & Plan Alcohol withdrawal, Abdominal pain, acute, epigastric, Acute pancreatitis Discharge Plan Visit Data Chief Complaint: Alcohol Withdrawal Stated Complaint: DEPRESSION, ALCOHOL WITHDRAWL ED Provider: Christiano Rojo Discharge Problem: Alcohol withdrawal, Abdominal pain, acute, epigastric, Acute pancreatitis Patient Disposition: Being Evaluated by Hospitalist Forms Stand Alone Forms: My [facility], Suicide Prevention Resources Prescriptions Prescriptions: No Action metoprolol tartrate 25 mg tablet 12.5 mg PO BID Qty: 60 5RF folic acid 1 mg tablet 1 mg PO QAM Qty: 30 5RF buspirone 5 mg tablet 5 mg PO BID Qty: 60 5RF pantoprazole 40 mg tablet,delayed release (DR/EC) 40 mg PO DAILY Qty: 30 5RF thiamine HCl (vitamin B1) 100 mg tablet 100 mg PO QAM Qty: 30 5RF multivitamin Tablet 1 tab PO DAILY fluoxetine 20 mg capsule 20 mg PO QAM Referrals Referrals: Kvng Mcghee III, CRNP [Primary Care Provider] -
--- NOTE | 2022-02-18 13:29 | History & Physical Report ---
Date of Service February 18, 2022 Assessment & Plan (1) Alcohol withdrawal: Plan: Alcohol abuse, acute alcohol withdrawal Last admitted for pancreatitis with alcohol withdrawal 08/13/2021, drinking 13- 70 drinks per day at that time Admit alcohol 219.1 Last drink morning of 02/18/2022 Admit to PCU AWSS with Ativan Librium protocol with taper Thiamine high-dose 500 for 1 day, 100 mg 3 times daily for 1 day, then 100 mg daily Folate 1 mg IV daily CM/ liaison consulted as patient expresses a desire to reduce alcohol get sober, but also notes his anxiety is a barrier and would like to get established for more help with management as outpatient Pancreatitis 2/ alcohol abuse Lipase elevated to 2471 on admission with epigastric pain N.p.o. Patient appears euvolemic on exam. Will defer prolonged aggressive IV fluids, will treat with 200 cc/h for 1 bag then decrease rate to maintenance 125 LR Defer lipase trend No leukocytosis, age less than 55, glucose less than 200, AST less than 250, LDH pending. Low risk by Digna's criteria, follow clinically Morphine scaled analgesia for pain control Alcoholic hepatitis History of alcohol induced hepatitis Madrey score pending coags Admitting LFTs: AST 88, ALT 53, bili 1.8 similar to prior baseline Trended Hyponatremia, suspect alcohol induced Sodium 129 on admission In the setting of severe alcohol abuse, clinically euvolemic IVF for pancreatitis BMP daily HTN - MTP 12.5mg tartrate BID Anxiety Continue fluoxetine 20 mg p.o. daily Disposition: PCU Diet: N.p.o. for pancreatitis, early clears if pain improving DVT prophylaxis: Low risk, SCDs CODE STATUS: Full code (2) Alcoholic pancreatitis: (3) Abdominal pain, acute, epigastric: (4) Hypertension: (5) Anxiety: (6) 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: (7) Hyperglycemia: (8) Left foot drop: History of Present Illness Primary Care Provider: Kvng Mcghee III, ANTHONY Uday is a 51-year-old male with a past medical history of alcohol abuse, tobacco use, cerebellar ataxia due to alcohol use, hyperglycemia, lumbar stenosis L4-L5, hypertension who presents to the emergency department and is recommended for admission for alcohol withdrawal In ER patient reports that he was tremulous with epigastric abdominal pain, has been drinking daily and heavily, at least a 12 pack/day and additionally drinks wine and beer. Patient reports she goes through shakes and withdrawal if he does not drink. Has had increasing abdominal pain and tremors, expresses a desire to reduce alcohol intake. Has been trying to wean himself off drinking by drinking different types or less alcohol, but this has been limited by tremulousness. He has been admitted to the hospital for alcohol withdrawal in the past. After last august was d/klaus and ws sober for 1 month. Did OK, and after a month though he would be ok limiting himself to just a drink of wine once and a while but gradually drank more and then started to drink all day long and mix back in beer. Started having retching/dry heaves ~10 days ago. No vomiting, but +abdominal discomfort and dry heaves most often in the morning getting out of bed. Dry heaves making his abdomen worse. Pain is mid/upper, in the center and not off to the right or left but radiates out a little. No lower abdominal pain. No melena/BRBPR. BMs loose but generally brown. Endorses depression lately which causes him to drink more. Not seeing anyone for it right now. Is currently taking prozac and buspirone. Denies SI/HI current and active. Drinks 1 box of wine over two days. Hasn't mixed in vodka since last year, has mixed in some beer a few days ago to try and detox a little and drop the potency of what he was drinking. Last drink this morning, hard seltzer. Seizure many years ago, more than 15 years ago. Was on an antiseizure medicine more than decade ago, none recently and no recent seizure. Had stopped drinking cold turkey at the time. Medical History: Reviewed Medications: Reviewed Surgical History: Reviewed Allergies: Reviewed Social History: Smokes cigarettes 1ppd. Etoh as noted. No rec drug use. Code Status: Surrogate DM would be sister Damon Rebolledo. Full Code Allergies Allergy/AdvReac Type Severity Reaction Status Date / Time No Known Allergies Allergy Verified 09/08/21 17:33 Home Medications Medication Instructions Recorded Confirmed Type fluoxetine 20 mg capsule 20 mg PO QAM 08/13/21 09/08/21 History multivitamin 1 tab PO DAILY 08/13/21 09/08/21 History buspirone 5 mg tablet 5 mg PO BID #60 tabs 09/08/21 09/08/21 Rx pantoprazole 40 mg tablet,delayed 40 mg PO DAILY #30 tabs 09/08/21 09/08/21 Rx release thiamine HCl (vitamin B1) 100 mg 100 mg PO QAM #30 tabs 09/08/21 09/08/21 Rx tablet metoprolol tartrate 25 mg tablet 12.5 mg PO BID #60 tabs 09/20/21 Rx folic acid 1 mg tablet 1 mg PO QAM #30 tabs 10/24/21 Rx 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 Chronic alcohol use GI bleed Hypertension Hypertensive urgency Metabolic acidosis Sensory polyneuropathy Smokes 1 pack of cigarettes per day Surgical History No pertinent past surgical history Family History Other Adopted Social History Smoking Status: Never smoker Tobacco Type: Cigarettes packs per day: 1; Cigarettes Per Day: 10; Second Hand Exposure: No; Hx Alcohol Use: Yes Alcohol type: hard liquor Alcohol Intake Frequency Comment: 1/2 to one 5th of vodka daily, some beer Hx Substance Use: No Preferred Language: Setswana Communication Ability: Effective Byproducts Maker Required: No Beliefs That Will Affect Care: None Current Living Situation: Alone current occupational status: previously employed current occupation: Recently lost job working in an [employer] service How many Children do You have: 0 Feels Safe at Home: Yes Assistive Devices: None Review of Systems Review of Systems: All systems reviewed & are unremarkable except as noted in HPI & below Physical Exam Physical Exam: General: A&Ox3. NAD. Cooperative. Appears guarded. Resting comfortably in hospital bed, HEENT: Atraumatic, normocephalic. Mucous membranes are moist. Pulm: CTAB A&P. -wheezes, -rales, -rhonchi. Symmetrical chest rise. No increase in work of breathing. No respiratory distress. Cardiac: RRR, +sm. Radial pulses intact and symmetrical. Abdominal: Tender epigastrium, with some radiation bilaterally. No lower quadrant tenderness. No rebound tenderness. No fluid wave. Bowel sounds intact Extremities: Warm, dry. 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 Hip flexion 5/5 bilateral. no asterixis Results & Data Results & Data ([facility]) Vital Signs (Past 12 Hours) Vital Signs Temp Pulse Resp BP Pulse Ox O2 Del Method 02/18/22 13:00 75 22 98 02/18/22 13:00 124/88 02/18/22 12:30 80 16 98 02/18/22 12:30 115/85 02/18/22 12:24 79 22 96 02/18/22 11:23 36.0 C L 98 H 20 103/74 91 Room Air PG Care Time/CCT Total # of Minutes Spent Total Time Spent with Patient: Total time spent is greater than 50% in coordination of care (as documented) at patient's floor/unit and/or counseling patient: Coding Level of Care Code 69879 Initial Inpt Care Lvl 3 Diagnoses Alcohol withdrawal F10.939 Alcoholic pancreatitis K85.20 Abdominal pain, acute, epigastric R10.13 Hypertension I10 Anxiety F41.9 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 F10.20; G32.81 Hyperglycemia R73.9 Left foot drop M21.372
[2022-02-18] MEDS ORDERED: Ativan IV Alcohol Withdrawal--Active Protocol IV PRN (13:50)
[2022-02-18] MEDS ORDERED: THIAMINE HCL 500 MG in SODIUM CHLORIDE 0.9% 50 ML IV STA (13:50)
[2022-02-18] MEDS ORDERED: chlordiazePOXIDE ALCOHOL WITHDRAWL 25MG PO STA (13:50)
[2022-02-18] MEDS ORDERED: LORazepam 2 MG in SYRINGE 0 ML IV PRN (13:51)
[2022-02-18] MEDS ORDERED: LORazepam 3 MG in SYRINGE 0 ML IV PRN (13:51)
[2022-02-18] MEDS ORDERED: FOLIC ACID 1 MG in SYRINGE 9.8 ML IV STA (13:51)
[2022-02-18] MEDS: chlordiazePOXIDE HCl 25 MG CAP PO SCH ×2 (14:50→19:39)
[2022-02-18] MEDS ORDERED: LACTATED RINGER'S 1,000 ML IV SCH (16:22)
[2022-02-18] MEDS ORDERED: MoRPHine SULFATE 2 MG/ML CARP IV PRN (16:22)
[2022-02-18] MEDS ORDERED: POLYETHYLENE (MIRALAX) 17 GM PACK PO PRN (16:22)
[2022-02-18] MEDS: MoRPHine SULFATE 2 MG/ML CARP IV PRN ×2 (16:52→21:05)
[2022-02-18] MEDS: LORazepam 1 MG in SYRINGE 0 ML IV PRN ×2 (17:05→19:56)
[2022-02-18] MEDS: METOPROLOL TARTRATE 25 MG TAB PO SCH (19:39)
[2022-02-18] MEDS: FAMOTIDINE 20 MG in SYRINGE 3 ML IV SCH (19:41)
[2022-02-18] MEDS: NICOTINE 14 MG/24 HR PATCH TD SCH (21:02)
[2022-02-18] MEDS: LACTATED RINGER'S 1,000 ML IV SCH (21:06)
[2022-02-19] MEDS: MoRPHine SULFATE 2 MG/ML CARP IV PRN ×2 (01:08→05:09)
[2022-02-19] MEDS: chlordiazePOXIDE HCl 25 MG CAP PO SCH ×4 (01:08→20:41)
[2022-02-19] MEDS: LACTATED RINGER'S 1,000 ML IV SCH ×3 (04:50→18:07)
[2022-02-19 07:25] LABS: Basophils # (auto) 0.01 K/uL (0-0.2); Basophils % (auto) 0.1 %; Hematocrit (blood only) 35.8 % (40.1-51.0); Immature Granulocytes # (auto) 0.03 K/uL (0.00-0.02); Immature Granulocytes % (auto) 0.4 %; Lymphocytes # (auto) 0.51 K/uL (1.2-3.4); Lymphocytes % (auto) 6.4 %; Mean Corpuscular Hemoglobin 36.3 pg (25.0-34.0); Mean Corpuscular Hgb Conc 36.3 g/dL (32.0-36.0); Mean Platelet Volume 10.6 fL (9.4-12.4); Monocytes # (auto) 0.61 K/uL (0.24-0.82); Monocytes % (auto) 7.7 %; Neutrophils # (auto) 6.81 K/uL (1.4-6.5); Neutrophils % (auto) 85.4 %; Platelet Count 101 K/uL (130-400); RDW Coefficient of Variation 14.1 % (11.5-14.5); RDW Standard Deviation 52.3 fL (36.4-46.3); Red Blood Count 3.58 M/uL (4.63-6.08); White Blood Count 7.97 K/ul (4.8-10.8)
[2022-02-19 07:53] LABS: Albumin Globulin Ratio 1.3 (0.9-2); Albumin Level 3.9 gm/dl (3.4-5.0); Bilirubin,Total 1.9 mg/dl (0.2-1.0); Calcium 7.8 mg/dl (8.5-10.1); Creatinine Clr Calc Pharmacy 193.6 ml/min; Est GFR (African American) 144.4 ml/min; Est GFR (Non-African American) 124.6 ml/min; Globulin 3.1 gm/dl (2.5-4.0); Potassium 4.3 mmol/L (3.5-5.1)
[2022-02-19 08:14] LABS: INR 1.3 (0.9-1.1); Partial Thromboplastin Ratio 1.1; Partial Thromboplastin Time 29.7 Seconds (21.0-31.0); Prothrombin Time 13.4 Seconds (9.0-12.0)
[2022-02-19] MEDS: METOPROLOL TARTRATE 25 MG TAB PO SCH ×2 (08:23→20:41)
[2022-02-19] MEDS: FLUoxetine HCL 20 MG CAP PO SCH (08:23)
[2022-02-19] MEDS: PANTOprazole 40 MG TAB PO SCH (08:23)
[2022-02-19] MEDS: FAMOTIDINE 20 MG in SYRINGE 3 ML IV SCH ×2 (08:23→20:41)
[2022-02-19] MEDS: THIAMINE HCL 100 MG in SYRINGE 9 ML IV SCH ×3 (08:24→20:41)
[2022-02-19] MEDS ORDERED: ACETAMINOPHEN 500 MG TAB PO PRN (08:32)
[2022-02-19] MEDS ORDERED: MoRPHine SULFATE 2 MG/ML CARP IV PRN ×2 (08:33)
[2022-02-19] MEDS: LORazepam 1 MG in SYRINGE 0 ML IV PRN (09:00)
[2022-02-19] MEDS: FOLIC ACID 1 MG TAB PO SCH (09:40)
--- NOTE | 2022-02-19 11:01 | Electrocardiogram Report ---
Test Reason : Blood Pressure : / mmHG Vent. Rate : 078 BPM Atrial Rate : 078 BPM P-R Int : 148 ms QRS Dur : 102 ms QT Int : 408 ms P-R-T Axes : 026 004 041 degrees QTc Int : 465 ms Normal sinus rhythm Normal ECG When compared with ECG of 13-AUG-2021 22:03, Vent. rate has decreased BY 45 BPM T wave inversion no longer evident in Inferior leads Confirmed by Luis A Loza ([id number]) on 02/19/2022 11:00:47 AM Referred By: REFERRED SELF Confirmed By:Luis A Loza
--- NOTE | 2022-02-19 12:23 | Hospitalist Progress Note ---
Date of Service February 19, 2022 Assessment & Plan (1) Alcohol withdrawal: Plan: Alcohol abuse, acute alcohol withdrawal Last admitted for pancreatitis with alcohol withdrawal 08/13/2021, drinking 13- 70 drinks per day at that time Admit alcohol 219.1 Last drink morning of 02/18/2022 Thiamine & folate AWSS with Ativan Librium protocol with taper -> Moderate Ativan needs overnight (4 mg total), but this worked well last admission, so will not change at this point. CM/BH liaison consulted as patient expresses a desire to reduce alcohol get sober, but also notes his anxiety is a barrier and would like to get established for more help with management as outpatient Pancreatitis 2/2 alcohol abuse Lipase elevated to 2471 on admission with epigastric pain Patient appears euvolemic on exam. Will defer prolonged aggressive IV fluids, will treat with 200 cc/h for 1 bag then decrease rate to maintenance 125 LR Morphine scaled analgesia for pain control - Advance diet as tolerated Alcoholic hepatitis History of alcohol induced hepatitis Madrey score pending coags Admitting LFTs: AST 88, ALT 53, bili 1.8 similar to prior baseline Trended Hyponatremia, suspect alcohol induced Sodium 129 on admission IVF for pancreatitis BMP daily HTN BP today is 165/130. - MTP 12.5mg tartrate BID Anxiety Continue fluoxetine 20 mg p.o. daily Disposition: PCU Diet: Clears; advance as tolerated DVT prophylaxis: Low risk, SCDs CODE STATUS: Full code (2) Alcoholic pancreatitis: (3) Abdominal pain, acute, epigastric: (4) Hypertension: (5) Anxiety: (6) 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: (7) Hyperglycemia: (8) Left foot drop: Admission and Anticipated Discharge Date Admission Date: February 18, 2022 Subjective Doing well today. Reporting some pain in the LLQ. Reports no fevers/chills, chest pain, shortness of breath, nausea, or vomiting. Physical Exam Constitutional: WD/WN, vitals as above Eyes: EOM intact bilaterally; no conjunctival abnormality ENMT: external ear and nose normal, oropharynx normal Neck: trachea midline, no thyromegaly normal visual inspection Respiratory: normal respiratory effort, lungs clear to auscultation no respiratory distress Cardiovascular: RRR, no murmur, no edema Gastrointestinal (Abdomen): Inspection/Auscultation: abdomen normal to inspection; abdomen not distended Percussion/Palpation: abdomen soft; abdomen nontender, no guarding and abdomen not rigid Musculoskeletal: no cyanosis or clubbing, extremities motor strength 5/5 Skin: no rashes, warm and dry Neurologic: moves all extremities and awake Psychiatric: Orientation: alert, oriented to person and cooperative Results & Data Results & Data ([facility]) Vital Signs (Past 12 Hours) Vital Signs Temp Pulse Pulse Resp BP Pulse Ox O2 Del Method 02/19/22 10:51 36.6 C 93 H 20 166/129 H 96 Room Air 02/19/22 07:45 36.5 C 84 18 152/104 H 98 Room Air 02/19/22 07:21 90 02/19/22 05:11 36.6 C 85 18 143/102 H 98 Room Air 02/19/22 03:00 36.6 C 83 18 130/88 98 Room Air 02/19/22 00:47 36.5 C 83 18 137/88 97 Room Air PG Care Time/CCT Total # of Minutes Spent Total Time Spent with Patient: Total time spent is greater than 50% in coordination of care (as documented) at patient's floor/unit and/or counseling patient: Coding Level of Care Code 44413 Subseq Hosp Care Lvl 2 Diagnoses Alcohol withdrawal F10.939 Alcoholic pancreatitis K85.20 Abdominal pain, acute, epigastric R10.13 Hypertension I10 Anxiety F41.9 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 F10.20; G32.81 Hyperglycemia R73.9 Left foot drop M21.372
[2022-02-19] MEDS: NICOTINE 14 MG/24 HR PATCH TD SCH (20:41)
[2022-02-19] MEDS: MELATONIN 3 MG TAB PO PRN (23:05)
[2022-02-20] MEDS: LACTATED RINGER'S 1,000 ML IV SCH ×2 (02:05→09:58)
[2022-02-20] MEDS: chlordiazePOXIDE HCl 25 MG CAP PO SCH (06:10)
[2022-02-20 07:50] LABS: Hemoglobin 12.3 g/dl (14.0-18.0); Mean Corpuscular Hgb Conc 36.2 g/dL (32.0-36.0); Mean Corpuscular Volume 99.4 fL (80.0-100.0); Mean Platelet Volume 10.6 fL (9.4-12.4); Platelet Count 94 K/uL (130-400); RDW Coefficient of Variation 14.1 % (11.5-14.5); RDW Standard Deviation 51.4 fL (36.4-46.3); Red Blood Count 3.42 M/uL (4.63-6.08); White Blood Count 6.94 K/ul (4.8-10.8)
[2022-02-20 08:14] LABS: Alanine Aminotransferase 30 U/L (7-52); Albumin Globulin Ratio 1.2 (0.9-2); Albumin Level 3.4 gm/dl (3.4-5.0); Alkaline Phosphatase 65 U/L (34-104); Anion Gap 10 (3-11); Aspartate Aminotransferase 55 U/L (13-39); BUN Creatinine Ratio 14.6 (10-20); Bilirubin,Total 2.4 mg/dl (0.2-1.0); Blood Urea Nitrogen 6 mg/dl (6-23); Calcium 7.8 mg/dl (8.5-10.1); Carbon Dioxide 24 mmol/L (21-32); Chloride 96 mmol/L (98-107); Creatinine Clr Calc Pharmacy 239.7 ml/min; Est GFR (African American) > 150.0 ml/min; Est GFR (Non-African American) 135.2 ml/min; Globulin 2.9 gm/dl (2.5-4.0); Glucose 91 mg/dl (70-99(Fasting)); Lipase 294 U/L (11-82); Magnesium 1.8 mg/dl (1.7-2.4); Potassium 3.5 mmol/L (3.5-5.1); Sodium 130 mmol/L (136-145); Total Protein 6.3 gm/dl (6.0-8.3)
[2022-02-20] MEDS: MoRPHine SULFATE 2 MG/ML CARP IV PRN ×2 (09:35→17:56)
[2022-02-20] MEDS: FAMOTIDINE 20 MG in SYRINGE 3 ML IV SCH ×2 (09:48→21:16)
[2022-02-20] MEDS: PANTOprazole 40 MG TAB PO SCH (09:48)
[2022-02-20] MEDS: METOPROLOL TARTRATE 25 MG TAB PO SCH ×2 (09:48→21:15)
[2022-02-20] MEDS: FLUoxetine HCL 20 MG CAP PO SCH (09:48)
[2022-02-20] MEDS: FOLIC ACID 1 MG TAB PO SCH (09:48)
[2022-02-20] MEDS: THIAMINE HCL 100 MG TAB PO SCH (09:49)
--- NOTE | 2022-02-20 13:17 | Hospitalist Progress Note ---
Date of Service February 20, 2022 Assessment & Plan (1) Alcohol withdrawal: Plan: 51-year-old male past medical history significant for alcohol use disorder, previous hospitalizations for pancreatitis, hypertension, anxiety admitted for acute alcohol withdrawal. Alcohol use disorder, acute alcohol withdrawal: - Last admitted for pancreatitis with alcohol withdrawal 08/13/2021; drinking 13- 70 drinks per day at that time. - Admission alcohol level 219.1, with reported last drink on the morning of 02/18. - Ativan 1mg needed overnight for withdrawal symptoms. Continue AWSS protocol. - Continue Librium taper. - CM consulted; patient considering inpatient alcohol rehab. [facility] [address] D& referral placed for inpatient rehab services. (2) Alcoholic pancreatitis: Plan: - On presentation noted to have epigastric pain. - Lipase elevated to 2471 on admission with epigastric pain -> 294 on 02/20. - Admitting LFTs: AST 88, ALT 53, bili 1.8 similar to prior baseline. - Fluids discontinued today given relatively good oral intake of liquid diet. - Morphine scaled analgesia for pain control. - Escalate diet to full low fat diet. Anticipate discharge to home/alcohol rehab once medically stable. (3) Hyponatremia: Plan: Sodium 129 on admission; suspected due to low solute diet, alcohol use disorder. IVF for pancreatitis completed. BMP daily. (4) Anemia: Plan: - Patient with a history of anemia with Hgb ranges from 1015 over the last 2 years. - B12, folate, iron studies ordered. - No evidence of active bleeding. (5) Hypertension: Plan: - BP normotensive today; continue metoprolol tartrate 12.5mg tartrate BID. (6) Anxiety: Plan: Continue fluoxetine 20 mg p.o. daily. Plan Disposition: Med/Surg Diet: low fat diet DVT prophylaxis: Low risk, ambulate on demand with SCDs CODE STATUS: Full code Admission and Anticipated Discharge Date Admission Date: February 18, 2022 Subjective Yesterday patient received Ativan x3 doses for withdrawal symptoms, and this morning received Ativan x1 with improvement in those withdrawal symptoms. He has been getting his Librium taper as scheduled. He reports some mild epigastric pain improved from yesterday, and has been tolerating liquid diet well. Is interested in inpatient rehab on conversation today. Review of Systems Constitutional: no fever and no chills Respiratory: no cough and no dyspnea Cardiovascular: no chest pain and no palpitations Gastrointestinal: + abdominal pain; no nausea and no vomiting Neurologic: + tremor(s) (Mild and improved from admission) Psychiatric: no hallucinations Physical Exam Constitutional: WD/WN, vitals as above Respiratory: normal respiratory effort, lungs clear to auscultation no respiratory distress Cardiovascular: RRR, no murmur, no edema Gastrointestinal (Abdomen): Inspection/Auscultation: abdomen normal to inspection; abdomen not distended Percussion/Palpation: abdomen soft; abdomen nontender, no guarding and abdomen not rigid Skin: no rashes, warm and dry Neurologic: moves all extremities and awake Psychiatric: Orientation: alert, oriented x 3 and cooperative Affect: euthymic affect Results & Data Results & Data ([facility]) Vital Signs (Past 12 Hours) Vital Signs Temp Pulse Pulse Resp BP Pulse Ox O2 Del Method 02/20/22 11:24 36.7 C 96 H 18 135/86 98 Room Air 02/20/22 08:24 93 H 02/20/22 07:59 36.3 C L 93 H 17 133/82 98 Room Air 02/20/22 03:27 36.8 C 83 18 148/84 H 97 Room Air PG Care Time/CCT Total # of Minutes Spent Total Time Spent with Patient: Total time spent is greater than 50% in coordination of care (as documented) at patient's floor/unit and/or counseling patient: Coding Level of Care Code 25695 Subseq Hosp Care Lvl 2 Diagnoses Alcohol withdrawal F10.939 Alcoholic pancreatitis K85.20 Hyponatremia E87.1 Anemia D64.9 Hypertension I10 Anxiety F41.9
[2022-02-20] MEDS: LORazepam 1 MG in SYRINGE 0 ML IV PRN (19:58)
[2022-02-20] MEDS: NICOTINE 14 MG/24 HR PATCH TD SCH (21:15)
[2022-02-20] MEDS: MELATONIN 3 MG TAB PO PRN (21:15)
[2022-02-21 09:00] LABS: Hemoglobin 12.5 g/dl (14.0-18.0); Mean Corpuscular Hemoglobin 36.7 pg (25.0-34.0); Mean Corpuscular Hgb Conc 36.8 g/dL (32.0-36.0); Mean Corpuscular Volume 99.7 fL (80.0-100.0); Mean Platelet Volume 10.6 fL (9.4-12.4); Platelet Count 136 K/uL (130-400); RDW Coefficient of Variation 13.7 % (11.5-14.5); RDW Standard Deviation 50.4 fL (36.4-46.3); Red Blood Count 3.41 M/uL (4.63-6.08); White Blood Count 6.53 K/ul (4.8-10.8)
[2022-02-21] MEDS: FAMOTIDINE 20 MG in SYRINGE 3 ML IV SCH (09:02)
[2022-02-21] MEDS: FOLIC ACID 1 MG TAB PO SCH (09:04)
[2022-02-21] MEDS: FLUoxetine HCL 20 MG CAP PO SCH (09:04)
[2022-02-21] MEDS: PANTOprazole 40 MG TAB PO SCH (09:04)
[2022-02-21] MEDS: METOPROLOL TARTRATE 25 MG TAB PO SCH (09:05)
[2022-02-21] MEDS: THIAMINE HCL 100 MG TAB PO SCH (09:05)
[2022-02-21] MEDS: MoRPHine SULFATE 2 MG/ML CARP IV PRN (09:08)
[2022-02-21 09:19] LABS: Anion Gap 9 (3-11); BUN Creatinine Ratio 11.9 (10-20); Blood Urea Nitrogen 7 mg/dl (6-23); Calcium 8.2 mg/dl (8.5-10.1); Carbon Dioxide 24 mmol/L (21-32); Chloride 98 mmol/L (98-107); Creatinine Clr Calc Pharmacy 166.6 ml/min; Est GFR (African American) 134.9 ml/min; Est GFR (Non-African American) 116.4 ml/min; Glucose 96 mg/dl (70-99(Fasting)); Potassium 3.4 mmol/L (3.5-5.1); Sodium 131 mmol/L (136-145); Transferrin 159 mg/dl (200-360)
[2022-02-21 09:30] LABS: Ferritin 1241.8 ng/ml (8-388)
--- NOTE | 2022-02-21 14:11 | Discharge Summary ---
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 Patient reports she goes through shakes and withdrawal if he does not drink. Has had increasing abdominal pain and tremors, expresses a desire to reduce alcohol intake. Has been trying to wean himself off drinking by drinking different types or less alcohol, but this has been limited by tremulousness. He has been admitted to the hospital for alcohol withdrawal in the past. After last august was d/klaus and ws sober for 1 month. Did OK, and after a month though he would be ok limiting himself to just a drink of wine once and a while but gradually drank more and then started to drink all day long and mix back in beer. Started having retching/dry heaves ~10 days ago. No vomiting, but +abdominal discomfort and dry heaves most often in the morning getting out of bed. Dry heaves making his abdomen worse. Pain is mid/upper, in the center and not off to the right or left but radiates out a little. No lower abdominal pain. No melena/BRBPR. BMs loose but generally brown. Endorses depression lately which causes him to drink more. Not seeing anyone for it right now. Is currently taking prozac and buspirone. Denies SI/HI current and active. Drinks 1 box of wine over two days. Hasn't mixed in vodka since last year, has mixed in some beer a few days ago to try and detox a little and drop the potency of what he was drinking. Last drink this morning, hard seltzer. Seizure many years ago, more than 15 years ago. Was on an antiseizure medicine more than decade ago, none recently and no recent seizure. Had stopped drinking cold turkey at the time. Medical History: Reviewed Medications: Reviewed Surgical History: Reviewed Allergies: Reviewed Social History: Smokes cigarettes 1ppd. Etoh as noted. No rec drug use. Code Status: Surrogate DM would be sister Damon Rebolledo. Full Code Admission Exam Per Admitting Provider General: A&Ox3. NAD. Cooperative. Appears guarded. Resting comfortably in hospital bed, HEENT: Atraumatic, normocephalic. Mucous membranes are moist. Pulm: CTAB A&P. -wheezes, -rales, -rhonchi. Symmetrical chest rise. No increase in work of breathing. No respiratory distress. Cardiac: RRR, +sm. Radial pulses intact and symmetrical. Abdominal: Tender epigastrium, with some radiation bilaterally. No lower quadrant tenderness. No rebound tenderness. No fluid wave. Bowel sounds intact Extremities: Warm, dry. Cap refill brisk in hallux bilaterally.No resting tremor, mild extension tremor with 5/5 fence setter strength on hand extension. Hip flexion 5/5 bilateral. no asterixis Principal Dx & Hospital Course #1 = Principal Diagnosis (1) Alcohol withdrawal: 51-year-old male past medical history significant for alcohol use disorder, previous hospitalizations for pancreatitis, hypertension, anxiety admitted for acute alcohol withdrawal. Alcohol use disorder, acute alcohol withdrawal: - Last admitted for pancreatitis with alcohol withdrawal 08/13/2021; drinking 13- 70 drinks per day at that time. - Admission alcohol level 219.1, with reported last drink on the morning of 02/18. - Minimal Ativan needed since yesterday, stable for discharge. - Received total of 4 days of Librium taper, reasonable to d/c. - CM consulted; [facility] D&A referral placed for inpatient rehab services. Patient will follow up on discharge. (2) Alcoholic pancreatitis: - On presentation noted to have epigastric pain. - Lipase elevated to 2471 on admission with epigastric pain -> 294 on 02/20. - Admitting LFTs: AST 88, ALT 53, bili 1.8 similar to prior baseline. - Able to escalated diet and d/c fluids with improvement in epigastric pain over the admission. - Recommended low fat diet at home. (3) Hyponatremia: Sodium 129 on admission; suspected due to low solute diet, alcohol use d isorder. IVF for pancreatitis completed. (4) Anemia: - Patient with a history of anemia with Hgb ranges from 1015 over the last 2 years. - B12, folate, iron studies ordered, normal. Continue B12 and folate supplements. - No evidence of active bleeding. (5) Hypertension: - BP normotensive, continue metoprolol tartrate 12.5mg tartrate BID. (6) Anxiety: Continue fluoxetine 20 mg p.o. daily. Plan Dispo: home Discharge Exam Constitutional WD/WN, vitals as above Respiratory normal respiratory effort, lungs clear to auscultation Cardiovascular RRR, no murmur, no edema Gastrointestinal (Abdomen) normal bowel sounds, minimal epigastric tenderness to palpation without guarding Updated Medication List Medication Instructions Recorded Confirmed Type fluoxetine 20 mg capsule 20 mg PO QAM 08/13/21 09/08/21 History multivitamin 1 tab PO DAILY 08/13/21 09/08/21 History buspirone 5 mg tablet 5 mg PO BID #60 tabs 09/08/21 09/08/21 Rx pantoprazole 40 mg tablet,delayed 40 mg PO DAILY #30 tabs 09/08/21 09/08/21 Rx release thiamine HCl (vitamin B1) 100 mg 100 mg PO QAM #30 tabs 09/08/21 09/08/21 Rx tablet metoprolol tartrate 25 mg tablet 12.5 mg PO BID #60 tabs 09/20/21 Rx folic acid 1 mg tablet 1 mg PO QAM #30 tabs 10/24/21 Rx Hospital Stay Data Consultations 02/18/22 13:16 ED Decision to Admit Stat Pending Results Patient Have Any Pending Studies at Discharge: No Discharge Instructions Given to Patient (Per Discharging Provider) You were admitted to the hospital for help with stopping alcohol use. You were also given fluids and pain medication for pancreatitis, an inflammation of the pancreas (an organ that helps with digestion, and sits right below your ribs in the middle). You were given medications called Ativan and Librium for withdrawal symptoms. After a few days your symptoms resolved and you were felt to be safe for discharge home. None of your medications were changed during your hospital stay, and you can resume any medications that were held during your stay. Because you had pancreatitis, it would be helpful to your belly to keep to a low fat diet for the next week or so. Please look over the attached handout, and you can also use the internet to "Google" low fat diets. Please reach out to your family doctor to have an appointment in the next 2 weeks, to go over your medications and see how you are doing. If you are in alcohol rehab at that time, please be sure to see your family doctor after leaving rehab. Your primary doctor can also give you more resources for things like outpatient rehab, Alcoholics Anonymous, and other resources for achieving freedom from alcohol. If you have chest pain, trouble breathing, return of abdominal pains, or other reasons for medical concern, please seek urgent medical evaluation. Total Time Total Time Spent Total Time Spent (In Minutes): 40 Coding Level of Care Code D/C DAY MANAGEMENT >30 MINS Diagnoses Alcohol withdrawal F10.939 Alcoholic pancreatitis K85.20 Hyponatremia E87.1 Anemia D64.9 Hypertension I10 Anxiety F41.9
[2022-02-22] MEDS ORDERED: chlordiazePOXIDE HCl 5 MG CAP PO SCH
== END 2022-02-21 13:37 | disposition home or self-care (01) | DRG 896 ==
LOC: ED 11:05 → SUATTDRO 13:50 → 2E 13:50 → 3W 02-20 18:49

== ENCOUNTER 2022-04-23 17:08 | Inpatient (IN) ==
[2022-04-23] MEDS ORDERED: MULTI-VITAMIN INFUSION 10 ML, THIAMINE HCL 100 MG, FOLIC ACID 1 MG in SODIUM CHLORIDE 0... IV ONE (17:31)
--- NOTE | 2022-04-23 17:37 | Emergency Department Note ---
Impression & Plan Alcohol abuse, Thrombocytopenia, Pancreatitis, Alcohol intoxication, Hyponatremia ED Provider Note Provider: Danny Bentley MD DATE OF SERVICE: 04/23/2022 CHIEF COMPLAINT: Alcohol abuse/detox, intermittent abdominal chest pain HISTORY OF PRESENT ILLNESS: Patient is a 51-year-old gentleman history of alcohol abuse, spinal stenosis, hypertension presenting here today reporting he wants help with his alcohol abuse. States he has been intermittently having mid abdominal and chest discomfort as well as at times nausea and tremors and hallucinations. Is been trying to cut back but when he does these symptoms occur. Not sleeping very well. Has been trying to eat and drink some but not g oing well. Has been a lot of hard seltzer by his report with his last drink only several hours ago. History of alcohol withdrawal in the past by his report was hospitalized here in February. States he very distantly did have a seizure. States he is been to rehab before inpatient and its not really worked. Unsure if it be helpful this time. Denies other drug use. Denies trauma. Denies current chest pain or abdominal pain at this point. Denies nausea at this point. PAST MEDICAL HISTORY: As noted above MEDICATIONS: Reviewed home medications SOCIAL HISTORY: Denies drug use but significant daily alcohol use, unemployed PHYSICAL EXAM: GENERAL: alert and oriented in no acute distress on stretcher Head: normocephalic and atraumatic EYES: No injection, discharge or icterus. Pupils mildly dilated at 4 mm bilaterally and reactive NECK: Trachea midline. ENT: Mucous membranes pink and moist. LUNGS: Airway patent. No retractions. Breath sounds clear HEART: Regular rate and rhythm. No chest wall tenderness ABDOMEN: Soft and non-tender, without guarding or rebound. SKIN: Acyanotic, warm, dry, without rashes EXTREMITIES: Without swelling, tenderness or deformity NEUROLOGICAL: No focal deficits, aphasia, or facial droop. No significant slurred speech. Moving all extremities. Ambulatory. No resting tremor. EK bpm normal sinus rhythm with incomplete right bundle branch block. No PVC or PAC. No acute ST segment elevation or depression with a QTC of 447. CONTINUOUS CARDIAC MONITORING: was ordered and showed a heart rate of 60s-80s bpm in normal sinus rhythm Patient's laboratory studies and imaging reviewed. Differential includes Alcohol intoxication, toxicologic, infection, hypoglycemia, electrolyte abnormalities, cardiac sources, intracerebral event, neurologic, trauma, as well as other pathologies. IMPRESSION/MEDICAL DECISION MAKING: Reviewed patient medical record here with admission for alcohol withdrawal and pancreatitis several times over the last year last in February. Patient off the wagon for more than a month at this point with last alcohol use several hours ago. Does not appear to be in tara withdrawal at this point but likely alcohol still on board. Alcohol level was checked. Given a banana bag. Denies significant abdominal pain or chest pain or nausea at this time but intermittently this is been happening. Also states seems like he is having some hallucinations at times and particularly when he goes to stop drinking alcohol. Distant history of seizure. Does report again some alcohol withdrawal symptoms in the past. Basic labs including toxicology levels were sent. No trauma history no focal deficits do not believe we need a CT of the head. Benign abdomen at this time. Given his report of intermittent chest discomfort however we will complete a chest x-ray to exclude pulmonary pathology or evidence of pulmonary edema. Not hypoxic or so lower suspicion. Troponin was sent. Blood without leukocytosis or leukopenia. Minimal anemia slightly improved from baseline. Some macrocytosis today likely related to his alcohol use. Slight thrombocytopenia and history of similar in the past. Alcohol level moderately elevated to 221. No aspirin or Tylenol levels detected. Slight hyponatremia similar to previous likely related to his chronic alcohol abuse. There is a slight anion gap noted likely more related to his hydrational status and decreased oral intake. Not much to eat for the last 2 days. Again given IV hydration here. Magnesium at the low end of normal. Slight AST ALT elevation likely again consistent with his alcohol use and similar to previous values. Lipase does return significantly elevated at 1070. On reassessment before discussing this with the patient volunteers that his abdominal pain has returned and is moderate 5 out of 10 pain at this time in the epigastrium. Not having significant nausea at this point. Given a bit of IV morphine for pain control. Waxing waning abdominal pain and nausea symptoms that could be consistent with pancreatitis especially in light of his alcohol use and history. Given this finding and his history of significant withdrawal history although not in active withdrawal yet, discussed further care here. Patient in agreement and hospitalist contacted. DIAGNOSIS: Alcohol intoxication, alcohol abuse, thrombocytopenia, hyponatremia, pancre atitis DISPOSITION: Hospitalist will evaluate Patient was agreeable with this plan. 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 Chronic alcohol use GI bleed Hypertension Hypertensive urgency Metabolic acidosis Sensory polyneuropathy Smokes 1 pack of cigarettes per day Surgical History No pertinent past surgical history Family History Other Adopted Social History Smoking Status: Current every day smoker Tobacco Type: Cigarettes packs per day: 1; Cigarettes Per Day: 1 PPD; Second Hand Exposure: No; Hx Alcohol Use: Yes Alcohol type: beer, wine and hard liquor Alcohol Intake Frequency Comment: 1/2 to one 5th of vodka daily, some beer Hx Substance Use: No Preferred Language: Gabonese Communication Ability: Effective Cold Roll Catcher Required: No Beliefs That Will Affect Care: None marital status: Single Current Living Situation: Alone current occupational status: previously employed current occupation: Recently lost job working in an [employer] service How many Children do You have: 0 Feels Safe at Home: Yes Assistive Devices: None Allergies Allergies Allergy/AdvReac Type Severity Reaction Status Date / Time No Known Allergies Allergy Verified 02/24/22 11:01 Home Meds Home Medications Medication Instructions Recorded Confirmed multivitamin 1 tab PO DAILY 08/13/21 02/24/22 Previous Rx's Medication Instructions Recorded thiamine HCl (vitamin B1) 100 mg 100 mg PO QAM #30 tabs 09/08/21 tablet metoprolol tartrate 25 mg tablet 12.5 mg PO BID #60 tabs 09/20/21 fluoxetine 40 mg capsule 40 mg PO DAILY #30 caps 02/24/22 folic acid 1 mg tablet See Rx Instructions .Route 02/24/22 .COMPLEX #90 tabs buspirone 5 mg tablet See Rx Instructions .Route 02/27/22 .COMPLEX #60 tabs magnesium oxide 400 mg PO DAILY #30 caps 02/27/22 potassium chloride 10 mEq 10 meq PO BID 1 week #14 tabs 02/27/22 tablet,extended release pantoprazole 40 mg tablet,delayed See Rx Instructions .Route 03/24/22 release .COMPLEX #30 tabs Results & Data (ED) Vital Signs Vital Signs - 24 hr 04/23/22 17:12 04/23/22 17:44 Temperature 36.6 C Temperature Source Oral Pulse Rate 90 Pulse Rate [Apical] 74 Respiratory Rate 18 17 Respiratory Effort / Characteristics Non-Labored Spontaneous Respiratory Depth Normal Blood Pressure 98/73 L Blood Pressure [Right Arm] 121/90 Blood Pressure Mean 81 Blood Pressure Mean [Right Arm] 100 Pulse Oximetry 97 95 Oxygen Delivery Method Room Air Room Air Sepsis Recent Fever Within 48 Hours No Sepsis New/Unexplained Change in Mental Status No Sepsis Action Taken by Nursing No Action Required Laboratory Data 04/23/22 17:45 04/23/22 17:45 Lab Results 04/23/22 04/23/22 04/23/22 Range/Units 17:45 17:45 17:45 WBC 5.28 (4.8-10.8) K/ul RBC 3.56 L (4.63-6.08) M/uL Hgb 13.0 L (14.0-18.0) g/dl Hct 36.2 L (40.1-51.0) % MCV 101.7 H (80.0-100.0) fL MCH 36.5 H (25.0-34.0) pg MCHC 35.9 (32.0-36.0) g/dL RDW Std Deviation 51.2 H (36.4-46.3) fL RDW Coeff of Arturo 13.6 (11.5-14.5) % Plt Count 110 L (130-400) K/uL MPV 9.9 (9.4-12.4) fL Immature Gran % (Auto) 0.4 % Neut % (Auto) 70.1 % Lymph % (Auto) 16.3 % Kleberg % (Auto) 11.7 % Eos % (Auto) 1.1 % Baso % (Auto) 0.4 % Neut # (Auto) 3.70 (1.4-6.5) K/uL Lymph # (Auto) 0.86 L (1.2-3.4) K/uL Kleberg # (Auto) 0.62 (0.24-0.82) K/uL Eos # (Auto) 0.06 (0-0.50) K/uL Baso # (Auto) 0.02 (0-0.2) K/uL Immature Gran # (Auto) 0.02 (0.00-0.02) K/uL Sodium 132 L (136-145) mmol/L Potassium 3.7 (3.5-5.1) mmol/L Chloride 97 L (98-107) mmol/L Carbon Dioxide 21 (21-32) mmol/L Anion Gap 14 H (3-11) BUN 5 L (6-23) mg/dl Creatinine 0.51 L (0.6-1.4) mg/dl Est Cr Clr Drug Dosing 174.9 ml/min Est GFR ( Amer) 143.2 ml/min Est GFR (Non-Af Amer) 123.6 ml/min BUN/Creatinine Ratio 9.8 L (10-20) Glucose 97 (70-99(Fasting)) mg/dl Calcium 8.9 (8.5-10.1) mg/dl Magnesium 1.7 (1.7-2.4) mg/dl Total Bilirubin 1.1 H (0.2-1.0) mg/dl AST 84 H (13-39) U/L ALT 57 H (7-52) U/L Alkaline Phosphatase 72 (34-104) U/L Troponin I High Sens 4.3 (0-20) pg/ml Total Protein 7.4 (6.0-8.3) gm/dl Albumin 4.0 (3.4-5.0) gm/dl Globulin 3.4 (2.5-4.0) gm/dl Albumin/Globulin Ratio 1.2 (0.9-2) Lipase 1070 H (11-82) U/L TSH 0.811 (0.300-4.500) uIu/ml Salicylates (3.0-30) mg/dl Acetaminophen (10-30) ug/ml Ethyl Alcohol mg/dL (<10.0) mg/dl SARS-CoV-2, RNA, NAAT (NEGATIVE) 04/23/22 04/23/22 04/23/22 Range/Units 17:45 17:45 17:58 WBC (4.8-10.8) K/ul RBC (4.63-6.08) M/uL Hgb (14.0-18.0) g/dl Hct (40.1-51.0) % MCV (80.0-100.0) fL MCH (25.0-34.0) pg MCHC (32.0-36.0) g/dL RDW Std Deviation (36.4-46.3) fL RDW Coeff of Arturo (11.5-14.5) % Plt Count (130-400) K/uL MPV (9.4-12.4) fL Immature Gran % (Auto) % Neut % (Auto) % Lymph % (Auto) % Kleberg % (Auto) % Eos % (Auto) % Baso % (Auto) % Neut # (Auto) (1.4-6.5) K/uL Lymph # (Auto) (1.2-3.4) K/uL Kleberg # (Auto) (0.24-0.82) K/uL Eos # (Auto) (0-0.50) K/uL Baso # (Auto) (0-0.2) K/uL Immature Gran # (Auto) (0.00-0.02) K/uL Sodium (136-145) mmol/L Potassium (3.5-5.1) mmol/L Chloride (98-107) mmol/L Carbon Dioxide (21-32) mmol/L Anion Gap (3-11) BUN (6-23) mg/dl Creatinine (0.6-1.4) mg/dl Est Cr Clr Drug Dosing ml/min Est GFR ( Amer) ml/min Est GFR (Non-Af Amer) ml/min BUN/Creatinine Ratio (10-20) Glucose (70-99(Fasting)) mg/dl Calcium (8.5-10.1) mg/dl Magnesium (1.7-2.4) mg/dl Total Bilirubin (0.2-1.0) mg/dl AST (13-39) U/L ALT (7-52) U/L Alkaline Phosphatase (34-104) U/L Troponin I High Sens (0-20) pg/ml Total Protein (6.0-8.3) gm/dl Albumin (3.4-5.0) gm/dl Globulin (2.5-4.0) gm/dl Albumin/Globulin Ratio (0.9-2) Lipase (11-82) U/L TSH (0.300-4.500) uIu/ml Salicylates < 3.0 L (3.0-30) mg/dl Acetaminophen < 3 L (10-30) ug/ml Ethyl Alcohol mg/dL 221.7 H (<10.0) mg/dl SARS-CoV-2, RNA, NAAT NEGATIVE (NEGATIVE) Administered Medications Discontinued Medications Multivitamins 10 ml/ Thiamine HCl 100 mg/ Folic Acid 1 mg/Sodium Chloride 1,011.2 mls @ 1,011.2 mls/hr IV .Q1H ONE Stop: 04/23/22 18:30 Last Admin: 04/23/22 18:49 Dose: 1,011.2 mls/hr Documented By: Morphine Sulfate (Morphine Sulfate 4 Mg/Ml 1 Ml Carp\Vial) 4 mg IV NOW STA Stop: 04/23/22 18:50 Last Admin: 04/23/22 19:16 Dose: 4 mg Documented By: MORENO Imaging Data Radiologist's Impression: Chest X-Ray 04/23/22 17:31 SINGLE VIEW CHEST CLINICAL HISTORY: Atypical chest pain. FINDINGS: An AP, portable, upright chest radiograph is compared to study dated 08/13/2021 and correlated with chest CT dated 08/16/2021. The heart is enlarged. The pulmonary vasculature is noncongested. There is bibasilar scarring/atelectasis. No airspace consolidation or large pleural effusion is identified. No pneumothorax is seen. The skeletal structures are osteopenic. The bony thorax is grossly intact. IMPRESSION: Cardiomegaly with no active disease in the chest. ACT 112: Negative or not required by law. Electronically signed by: Mario Colindres M.D. 04/23/2022 6:17 PM Discharge Plan Visit Data Chief Complaint: Abdominal Pain Stated Complaint: ALC WITHDRAWL, ABDOMINAL PAIN ED Provider: Danny Bentley Discharge Problem: Alcohol abuse, Thrombocytopenia, Pancreatitis, Alcohol intoxication, Hyponatremia Patient Disposition: Being Evaluated by Hospitalist Forms Stand Alone Forms: My [facility] Prescriptions Prescriptions: No Action metoprolol tartrate 25 mg tablet 12.5 mg PO BID Qty: 60 5RF folic acid 1 mg tablet See Rx Instructions .ROUTE .COMPLEX Qty: 90 1RF Dose Instruction: TAKE 1 TAB ORALLY DAILY IN THE MORNING Rx Instructions: TAKE 1 TAB ORALLY DAILY IN THE MORNING magnesium oxide 400 mg magnesium capsule 400 mg PO DAILY Qty: 30 1RF potassium chloride 10 mEq tablet extended release 10 meq PO BID 7 Days Qty: 14 0RF buspirone 5 mg tablet See Rx Instructions .ROUTE .COMPLEX Qty: 60 5RF Dose Instruction: TAKE 1 TABLET BY MOUTH TWICE A DAY Rx Instructions: TAKE 1 TABLET BY MOUTH TWICE A DAY pantoprazole 40 mg tablet,delayed release (DR/EC) See Rx Instructions .ROUTE .COMPLEX Qty: 30 5RF Dose Instruction: TAKE 1 TABLET BY MOUTH EVERY DAY Rx Instructions: TAKE 1 TABLET BY MOUTH EVERY DAY thiamine HCl (vitamin B1) 100 mg tablet 100 mg PO QAM Qty: 30 5RF fluoxetine 40 mg capsule 40 mg PO DAILY Qty: 30 2RF multivitamin Tablet 1 tab PO DAILY Referrals Referrals: Kvng Mcghee III, CRNP [Primary Care Provider] - : Pancreatitis Qualifiers: Chronicity: acute Pancreatitis type: alcohol induced Alcohol intoxication Qualifiers: Complication of substance-induced condition: uncomplicated Qualified Code(s): F10.920 - Alcohol use, unspecified with intoxication, uncomplicated
[2022-04-23 17:59] LABS: Basophils # (auto) 0.02 K/uL (0-0.2); Basophils % (auto) 0.4 %; Eosinophils # (auto) 0.06 K/uL (0-0.50); Eosinophils % (auto) 1.1 %; Hematocrit (blood only) 36.2 % (40.1-51.0); Immature Granulocytes # (auto) 0.02 K/uL (0.00-0.02); Immature Granulocytes % (auto) 0.4 %; Lymphocytes # (auto) 0.86 K/uL (1.2-3.4); Lymphocytes % (auto) 16.3 %; Mean Corpuscular Hemoglobin 36.5 pg (25.0-34.0); Mean Corpuscular Hgb Conc 35.9 g/dL (32.0-36.0); Mean Corpuscular Volume 101.7 fL (80.0-100.0); Mean Platelet Volume 9.9 fL (9.4-12.4); Monocytes # (auto) 0.62 K/uL (0.24-0.82); Monocytes % (auto) 11.7 %; Neutrophils % (auto) 70.1 %; Platelet Count 110 K/uL (130-400); RDW Coefficient of Variation 13.6 % (11.5-14.5); RDW Standard Deviation 51.2 fL (36.4-46.3); Red Blood Count 3.56 M/uL (4.63-6.08); White Blood Count 5.28 K/ul (4.8-10.8)
--- NOTE | 2022-04-23 18:20 | XRay Report ---
SINGLE VIEW CHEST CLINICAL HISTORY: Atypical chest pain. FINDINGS: An AP, portable, upright chest radiograph is compared to study dated 08/13/2021 and correlate d with chest CT dated 08/16/2021. The heart is enlarged. The pulmonary vasculature is noncongested. Th ere is bibasilar scarring/atelectasis. No airspace consolidation or large pleural effusion is identif ied. No pneumothorax is seen. The skeletal structures are osteopenic. The bony thorax is grossly inta ct. IMPRESSION: Cardiomegaly with no active disease in the chest. ACT 112: Negative or not required by law. Electronically signed by: Mario Colindres M.D. 04/23/2022 6:17 PM
[2022-04-23 18:23] LABS: Acetaminophen < 3 ug/ml (10-30); Salicylate < 3.0 mg/dl (3.0-30)
[2022-04-23 18:24] LABS: BUN Creatinine Ratio 9.8 (10-20); Calcium 8.9 mg/dl (8.5-10.1); Creatinine Clr Calc Pharmacy 174.9 ml/min; Est GFR (African American) 143.2 ml/min; Est GFR (Non-African American) 123.6 ml/min; Potassium 3.7 mmol/L (3.5-5.1)
[2022-04-23 18:25] LABS: Albumin Globulin Ratio 1.2 (0.9-2); Bilirubin,Total 1.1 mg/dl (0.2-1.0); Globulin 3.4 gm/dl (2.5-4.0); Magnesium 1.7 mg/dl (1.7-2.4); Total Protein 7.4 gm/dl (6.0-8.3)
[2022-04-23 18:26] LABS: Troponin I High Sensitivity 4.3 pg/ml (0-20)
[2022-04-23] MEDS ORDERED: MoRPHine SULFATE 4 MG/ML 1 ML CARP\\VIAL IV STA (18:49)
--- NOTE | 2022-04-23 19:10 | History & Physical Report ---
Date of Service April 23, 2022 Assessment & Plan (1) Alcohol withdrawal: Plan: -Admit to med/tele -Patient is currently afebrile, hemodynamically stable, and stable on RA -While the patient's last drink was prior to arrival to the ED he is staring to experience withdrawal symptoms including anxiety and tremor -Will start active AWSS protocol and will also start the patient on Librium dosing for liver disease -Currently receiving a banana bag ordered by the ED, will also give the patient 2 bags of IV mag and 10 meq IV KCL x 2 doses -Continue home folic acid, thiamine, multivitamin, and magnesium -Case management consult placed to assist with finding an appropriate rehab program -Monitor am CBC, CMP, and mag -DVT PPX with BL SCDs and ambulation (2) Pancreatitis: Plan: -Patient noted to have epigastric/LUQ abdominal pain with a lipase of 1000, consistent with acute pancreatitis -AST and ALT are also elevated, this is not new for him -Will obtain a CT of the abd/pelvis with IV contrast for further evaluation to rule out other acute abdominal issues; patient denies a history of allergies to CT contrast, shellfish, and iodine -Will ordered STAT lactate on admission -Will keep NPO except meds for now, will start LR at 125 mL/hr x 24 hours, IV morphine for pain -Monitor am CBC, CMP, and mag (3) Hyponatremia: Plan: -Sodium is 132 today, he looks to have a history of mild hyponatremia in the past -Likely the result of his drinking and poor oral intake -Monitor sodium on am CMP (4) Anemia: Plan: -Patient noted to have a stable Hgb -MCV is at 101.7, MCHC is at 35 -Will order anemia labs now (5) Thrombocytopenia: Plan: -Noted to be at 110 today -This is not new for him and is close to his baseline over the past 6 months -Likely due to his drinking -Continue to monitor (6) Depression: Plan: -Patient denies suicidal and homicidal ideations at the time of the exam -Continue BuSpar and fluoxetine (7) Hypertension: Plan: -Stable -Continue metoprolol (8) Tobacco use disorder: Plan: -Nicotine patch ordered Plan The patient was discussed with Dr. 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 In the ED the patient was found to be afebrile, hemodynamically stable, stable on RA. Labs were remarkable for a WBC WNL, stable hgb, platelet count of 110 (appears close to his baseline over the past 2 years), MCV of 101.t, with HCT of 36.2 and MCHC of 35.9, stable cr of 0.51, sodium of 132, AG 14 with a bicarb of 21, potassium of 3.7, mag of 1.7, total bili of 1.1, AST of 84, ALT of 57, alk phos of 72, lipase of 1070, TSH WNL, alcohol level of 221, and negative salicylate and acetaminophen levels, and covid positive. Chest xray was read as "Cardiomegaly with no active disease in the chest.". Prior to admission the patient was given 4 mg IV morphine and a Banana bag. At the time of the exam the patient was resting comfortably in bed in no acute distress. He states that he has had a long history of alcohol abuse, he started drinking again last month due to feeling depressed and lonely. When asked, he states that he has been drinking 6-10 hard seltzers daily, his last drink was approximately one hour prior to arrival to the ED. When asked about his withdrawal history he states that he has a "distant" history of a withdrawal seizure but has never had to be intubated in the past. He states at the time of the exam that he is starting to feel anxious and beginning to have a tremor. He states that he feels as though he is starting to withdrawal. He noted epigastric and LUQ abdominal pain, this is exacerbated with eating and drinking. He has been nauseous but has not yet vomited. He denies dysuria, hematuria, melena, diarrhea, and bright red bowel movements. Taking deep breaths exacerbates his abdominal pain and he denies any other chest pain. He is currently smoking approximately 1/2 pack of cigarettes daily and would be interested in a nicotine patch. When asked, he states that he is interested in pursuing rehab on discharge. He currently denies suicidal and homicidal ideations. He is a full code and he would want his sister, Miranda Prince ([phone]) to make decisions for him if he could not make them himself. Please refer to Dr. Morales's attestation for any changes to the treatment plan. Allergies Allergy/AdvReac Type Severity Reaction Status Date / Time No Known Allergies Allergy Verified 02/24/22 11:01 Home Medications Medication Instructions Recorded Confirmed Type multivitamin 1 tab PO DAILY 08/13/21 04/23/22 History thiamine HCl (vitamin B1) 100 mg 100 mg PO QAM #30 tabs 09/08/21 04/23/22 Rx tablet metoprolol tartrate 25 mg tablet 12.5 mg PO BID #60 tabs 09/20/21 04/23/22 Rx fluoxetine 40 mg capsule 40 mg PO DAILY #30 caps 02/24/22 04/23/22 Rx folic acid 1 mg tablet See Rx Instructions .Route 02/24/22 04/23/22 Rx .COMPLEX #90 tabs magnesium oxide 400 mg PO DAILY #30 caps 02/27/22 04/23/22 Rx potassium chloride 10 mEq 10 meq PO BID 1 week #14 tabs 02/27/22 04/23/22 Rx tablet,extended release pantoprazole 40 mg tablet,delayed See Rx Instructions .Route 03/24/22 04/23/22 Rx release .COMPLEX #30 tabs buspirone 5 mg tablet 5 mg PO BID 04/23/22 04/23/22 History 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 Chronic alcohol use GI bleed Hypertension Hypertensive urgency Metabolic acidosis Sensory polyneuropathy Smokes 1 pack of cigarettes per day Surgical History No pertinent past surgical history Family History Other Adopted Social History Smoking Status: Current every day smoker Tobacco Type: Cigarettes packs per day: 1; Cigarettes Per Day: 1 PPD; Second Hand Exposure: No; Hx Alcohol Use: Yes Alcohol type: beer, wine and hard liquor Alcohol Intake Frequency Comment: 1/2 to one 5th of vodka daily, some beer Hx Substance Use: No Preferred Language: Kosovan Communication Ability: Effective Forge Heater Required: No Beliefs That Will Affect Care: None marital status: Single Current Living Situation: Alone current occupational status: previously employed current occupation: Recently lost job working in an [employer] service How many Children do You have: 0 Feels Safe at Home: Yes Assistive Devices: None Review of Systems Review of Systems: Denies current fever, chills, headache, changes in vision, hearing, taste, and smell, chest pain, SOB, cough, vomiting, diarrhea, hematemesis, melena, dysuria, hematuria, and recent falls. All systems have been reviewed and are otherwise negative. Physical Exam Physical Exam: Physical Exam: General: In no acute distress, stated age, well-nourished, good hygiene HEENT: Normocephalic, atraumatic, no scleral icterus, pupils around round, symmetrical, and reactive to light, dry mucus membranes, trachea midline, no thyromegaly Chest/Pulm: No respiratory distress, symmetrical chest expansion, expiratory wheezing noted throughout Cardiac: RRR, no murmurs noted Abdomen: Negative for ascites and bruising, hyperactive bowel sounds, soft, tender to palpation in the epigastric and LUQ regions Musculoskeletal: Symmetrical and without signs of acute trauma, upper and lower extremities with full ROM, no atrophy, spasticity, or flaccidity Extremities: Radial, dorsalis pedis, and posterior tibial pulses are intact and symmetrical, no edema noted in the BL LE's Skin: Warm, dry, no rashes , lesions, or scars noted Neuro: Alert and oriented to person, place, month, year, and president, no focal defects, CN II-XII tested and intact, finger to nose test negative, mild tremor noted Psych: No acute distress, anxious and cooperative during the exam Results & Data Results & Data ([facility]) Vital Signs (Past 12 Hours) Vital Signs Temp Pulse Pulse Resp BP BP Pulse Ox 04/23/22 17:44 74 17 121/90 95 04/23/22 17:12 36.6 C 90 18 98/73 L 97 O2 Del Method 04/23/22 17:44 Room Air 04/23/22 17:12 Room Air Laboratory Results Abnormal lab results 04/23/22 04/23/22 04/23/22 Range/Units 17:45 17:45 17:45 RBC 3.56 L (4.63-6.08) M/uL Hgb 13.0 L (14.0-18.0) g/dl Hct 36.2 L (40.1-51.0) % MCV 101.7 H (80.0-100.0) fL MCH 36.5 H (25.0-34.0) pg RDW Std Deviation 51.2 H (36.4-46.3) fL Plt Count 110 L (130-400) K/uL Lymph # (Auto) 0.86 L (1.2-3.4) K/uL Sodium 132 L (136-145) mmol/L Chloride 97 L (98-107) mmol/L Anion Gap 14 H (3-11) BUN 5 L (6-23) mg/dl Creatinine 0.51 L (0.6-1.4) mg/dl BUN/Creatinine Ratio 9.8 L (10-20) Total Bilirubin 1.1 H (0.2-1.0) mg/dl AST 84 H (13-39) U/L ALT 57 H (7-52) U/L Lipase 1070 H (11-82) U/L Salicylates < 3.0 L (3.0-30) mg/dl Acetaminophen < 3 L (10-30) ug/ml Ethyl Alcohol mg/dL (<10.0) mg/dl 04/23/22 Range/Units 17:45 RBC (4.63-6.08) M/uL Hgb (14.0-18.0) g/dl Hct (40.1-51.0) % MCV (80.0-100.0) fL MCH (25.0-34.0) pg RDW Std Deviation (36.4-46.3) fL Plt Count (130-400) K/uL Lymph # (Auto) (1.2-3.4) K/uL Sodium (136-145) mmol/L Chloride (98-107) mmol/L Anion Gap (3-11) BUN (6-23) mg/dl Creatinine (0.6-1.4) mg/dl BUN/Creatinine Ratio (10-20) Total Bilirubin (0.2-1.0) mg/dl AST (13-39) U/L ALT (7-52) U/L Lipase (11-82) U/L Salicylates (3.0-30) mg/dl Acetaminophen (10-30) ug/ml Ethyl Alcohol mg/dL 221.7 H (<10.0) mg/dl Diagnostic Findings Chest X-Ray 04/23/22 17:31 SINGLE VIEW CHEST CLINICAL HISTORY: Atypical chest pain. FINDINGS: An AP, portable, upright chest radiograph is compared to study dated 08/13/2021 and correlated with chest CT dated 08/16/2021. The heart is enlarged. The pulmonary vasculature is noncongested. There is bibasilar scarring/atelectasis. No airspace consolidation or large pleural effusion is identified. No pneumothorax is seen. The skeletal structures are osteopenic. The bony thorax is grossly intact. IMPRESSION: Cardiomegaly with no active disease in the chest. ACT 112: Negative or not required by law. Electronically signed by: Mairo Colindres M.D. 04/23/2022 6:17 PM ECG Additional Comments: Normal sinus rhythm Incomplete right bundle branch block Minimal voltage criteria for LVH, may be normal variant Borderline ECG When compared with ECG of 18-FEB-2022 11:31, T wave inversion now evident in Inferior leads Code Status & VTE Plan Code Status FUll code VTE Prophylaxis Plan VTE Prophylaxis will be ordered: Yes Supervising Physician Co-Signing Physician Notes Patient seen and examined, chart reviewed, case discussed with SHERYL Shirley and I agree with assessment plan as documented above. In brief, patient is a 51-year-old male with history of alcohol abuse, cerebellar ataxia secondary to alcohol use as well as hypertension presented to [facility] ED on 04/23 with request of medical detox. Patient reports he has been trying to cut down at home but his attempts have been unsuccessful. Patient drinks 6-10 hard seltzers daily with last drink today prior to arrival. In the ER, he is afebrile, hemodynamically stable, nontoxic in appearance. No tremors or hemodynamic instability noted. Patient does report that he feels somewhat jittery. Also with epigastric and left upper quadrant pain as well as nausea. No additional complaints at this time. On physical exam patient is afebrile, hemodynamically stable, no acute distress. Generalresting comfortably, oriented x3 Skinwarm, dry, intact, no rashes or lesions HEENTnormocephalic/atraumatic, pupils equal round and reactive to light, no scleral icterus, slightly dry mucous membranes, neck supple Heart+ S1/S2, regular, no murmur/rub/gallops Lungsequal air entry bilaterally, no rales or rhonchi, faint end expiratory wheezing appreciated throughout Abdomenpositive bowel sounds, soft, tender in the epigastric and left upper quadrant with some voluntary guarding, no rebound or peritonitis, no organomegaly appreciated Extremitieswarm, well-perfused, palpable pulses with no clubbing/cyanosis/edema Neurogrossly normal, no focal COVID-19 positive test (U07.1, COVID-19) with Viral Sepsis (A41.89 other specified sepsis) (If respiratory failure present, add as separate assessment) Labs and images reviewed. Significant for stable macrocytic anemia with Hgb = 13, HCT = 36.2, MCV = 101.7. Platelets = 110 Sodium = 132, slight anion gap of 14 AST = 84, ALT = 57 Lipase = 1070 EtOH = 221.7 CT of the abdomen performed which reveals findings consistent with acute pancreatitis. No organized peripancreatic fluid. Hepatomegaly and severe hepatic steatosis. Gallbladder is mildly distended but otherwise normal in appearance. Assessment/plan: Pancreatitisin setting of alcohol use, lipase equals 1070, CT findings consistent with acute pancreatitis. Calcium is normal. We will continue IV fluidsincrease rate to 200 mL, morphine as needed for pain, Zofran as needed for nausea Alcohol withdrawalmanaged with YAYA as protocol, Librium and IV Ativan as needed. Patient is already received banana bag. We will continue folic acid, thiamine, multivitamin. Case management consultation appreciated to assist with rehab placement upon discharge Anemiano active bleeding. Stable, macrocytic. B12 = 460 on 04/23/2022, folate = greater than 22.3 PG Care Time/CCT Total # of Minutes Spent Total Time Spent with Patient: Total time spent is greater than 50% in coordination of care (as documented) at patient's floor/unit and/or counseling patient: C[place] [address] INT INP/OBS CARE 3/75MIN Patient Type Established Medical Decision Making High Complexity Diagnoses Alcohol withdrawal F10.939 Pancreatitis K85.90 Chronicity: acute Pancreatitis type: alcohol induced Hyponatremia E87.1 Anemia D64.9 Thrombocytopenia D69.6 Depression F32.A Hypertension I10 Tobacco use disorder F17.200 (1) Pancreatitis Chronicity: acute Pancreatitis type: alcohol induced
[2022-04-23] MEDS ORDERED: chlordiazePOXIDE ALCOHOL WITHDRAWL 25MG PO STA (19:38)
[2022-04-23] MEDS ORDERED: Ativan IV Alcohol Withdrawal--Active Protocol IV PRN (19:38)
[2022-04-23] MEDS ORDERED: LORazepam 2 MG/1 ML VIAL IV PRN (19:38)
[2022-04-23] MEDS: MAGNESIUM SULFATE / D5W 1 GM/100 ML BAG IV SCH ×2 (19:39→22:19)
[2022-04-23] MEDS: POTASSIUM CHLORIDE / WTR 10 MEQ/100 ML PLCT IV SCH ×2 (19:39→22:18)
[2022-04-23] MEDS ORDERED: OPTIRAY 350 100ml IV ONE (20:54)
[2022-04-23] MEDS ORDERED: FOLIC ACID 1 MG TAB PO SCH (21:25)
[2022-04-23 21:39] LABS: Ferritin 1396.9 ng/ml (8-388)
--- NOTE | 2022-04-23 21:46 | CT Scan Report ---
CT SCAN OF THE ABDOMEN AND PELVIS WITH IV CONTRAST CLINICAL HISTORY: Generalized abdominal pain. COMPARISON STUDY: Abdominal CT dated 08/13/2021. TECHNIQUE: Following the IV administration of 90 cc of Optiray 350, CT scan of the abdomen and pelvi s is performed from the lung bases to the proximal femora. Images are reviewed in the axial, sagittal , and coronal planes. IV contrast was administered without complication. A dose lowering technique wa s utilized adhering to the principles of ALARA. CT DOSE: 448.15 mGy.cm FINDINGS: Lung bases: The heart is normal in size and without pericardial effusion. The coronary arteries are d ensely calcified. There is a small hiatal hernia. The lung bases are clear noting dependent atelectas is. Liver: The contrast-enhanced liver is mildly enlarged measuring 18.2 cm in length. The liver demonstr ates diffusely mixed attenuation indicating steatosis. There is no intrahepatic biliary ductal dilata tion. The hepatic veins and portal veins are patent. Gallbladder: The gallbladder is distended but otherwise normal in appearance. Spleen: Normal in size and attenuation. Pancreas: The pancreas is moderately atrophic. There is peripancreatic inflammation and fluid consist ent with acute pancreatitis. The gland enhances throughout. The duct is normal in caliber. No organiz ed peripancreatic fluid collection is seen. The splenic vein is patent. Adrenal glands: Unremarkable. Kidneys: The contrast enhanced kidneys are normal in size and without hydronephrosis. The kidneys enh ance symmetrically. Abdominal vasculature: The abdominal aorta is normal in course and caliber noting mild atheroscleroti c calcification. Bowel: There are scattered colonic diverticula without CT evidence of acute diverticulitis. No bowel obstruction is seen. A tiny duodenal diverticulum is incidentally noted. Mild wall thickening and hyp eremia of the duodenum is likely related to adjacent pancreatitis. The appendix is well-visualized a nd normal. Peritoneum: There is no intraperitoneal free air or abdominal ascites. There is a small fat-containin g umbilical hernia. Lymphadenopathy: None. Pelvic viscera: The bladder, prostate, and seminal vesicles are normal as visualized. Skeletal structures: There is mild to moderate lumbosacral spondylosis. No lytic or blastic lesions a re seen. IMPRESSION: 1. Findings are consistent with acute pancreatitis. Correlate with clinical findings and serum lipase levels. 2. The gland enhances throughout and no organized peripancreatic fluid collection is identified. 3. Hepatomegaly and severe hepatic steatosis. 4. The gallbladder is mildly distended but otherwise normal in appearance. 5. Additional findings as above. ACT 112: Negative or not required by law. Electronically signed by: Mario Colindres M.D. 04/23/2022 9:44 PM
[2022-04-23] MEDS: LACTATED RINGER'S 1,000 ML IV SCH (22:16)
[2022-04-23] MEDS: LORazepam 2 MG/1 ML VIAL IV PRN (22:33)
[2022-04-23] MEDS: busPIRone 5 MG TAB PO SCH (22:42)
[2022-04-23] MEDS: METOPROLOL TARTRATE 25 MG TAB PO SCH (22:43)
[2022-04-23] MEDS: chlordiazePOXIDE HCl 25 MG CAP PO SCH (22:47)
[2022-04-23] MEDS ORDERED: ONDANSETRON INJ 2 MG/ML 2 ML VIAL IV PRN (22:59)
[2022-04-23] MEDS: NICOTINE 14 MG/24 HR PATCH TD SCH (23:39)
[2022-04-23] MEDS: MoRPHine SULFATE 2 MG/ML CARP IV PRN (23:41)
[2022-04-24] MEDS: MAGNESIUM SULFATE / D5W 1 GM/100 ML BAG IV SCH (00:22)
[2022-04-24] MEDS: LORazepam 2 MG/1 ML VIAL IV PRN ×4 (02:01→22:36)
[2022-04-24] MEDS: chlordiazePOXIDE HCl 25 MG CAP PO SCH ×4 (02:56→20:45)
[2022-04-24] MEDS ORDERED: MoRPHine SULFATE 2 MG/ML CARP IV STA (03:34)
[2022-04-24] MEDS: LACTATED RINGER'S 1,000 ML IV SCH ×3 (05:05→11:31)
[2022-04-24 06:06] LABS: Appearance Urine Clear (Clear); Bilirubin Urine Negative (Negative); Blood Urine Negative (Negative); Color Urine Yellow; Glucose Urine UA Negative (Negative); Ketones Urine 3+ (Negative); Leukocyte Esterase Urine Negative (Negative); Nitrite Urine Negative (Negative); Protein Urine Negative (Negative); Specific Gravity Urine > 1.045 (1.000-1.030); Urobilinogen Urine Negative (Negative); pH Urine 6.5 (4.5-7.5)
[2022-04-24] MEDS: MoRPHine SULFATE 2 MG/ML CARP IV PRN ×4 (06:16→20:49)
[2022-04-24 06:30] LABS: Amphetamines+Metham, Urine Neg (Neg); Barbiturates, Urine Neg (Neg); Benzodiazepine, Urine Neg (Neg); Cocaine, Urine Neg (Neg); MDMA (Ecstacy), Urine Neg (Neg); Methadone, Urine Neg (Neg); Opiate, Urine Pos (Neg); Phencyclidine, Urine Neg (Neg)
[2022-04-24] MEDS ORDERED: ALBUT/IPRATROP 3MG/0.5MG NEB 3 ML VIAL NEB SCH (07:00)
[2022-04-24 07:37] LABS: Basophils # (auto) 0.02 K/uL (0-0.2); Basophils % (auto) 0.4 %; Eosinophils % (auto) 1.9 %; Hematocrit (blood only) 35.2 % (40.1-51.0); Hemoglobin 12.4 g/dl (14.0-18.0); Immature Granulocytes # (auto) 0.02 K/uL (0.00-0.02); Immature Granulocytes % (auto) 0.4 %; Lymphocytes # (auto) 0.89 K/uL (1.2-3.4); Lymphocytes % (auto) 17.2 %; Mean Corpuscular Hemoglobin 36.5 pg (25.0-34.0); Mean Corpuscular Hgb Conc 35.2 g/dL (32.0-36.0); Mean Corpuscular Volume 103.5 fL (80.0-100.0); Mean Platelet Volume 10.4 fL (9.4-12.4); Monocytes # (auto) 0.71 K/uL (0.24-0.82); Monocytes % (auto) 13.7 %; Neutrophils # (auto) 3.43 K/uL (1.4-6.5); Neutrophils % (auto) 66.4 %; Platelet Count 105 K/uL (130-400); RDW Coefficient of Variation 13.5 % (11.5-14.5); White Blood Count 5.17 K/ul (4.8-10.8)
[2022-04-24 07:59] LABS: Alanine Aminotransferase 45 U/L (7-52); Albumin Globulin Ratio 1.3 (0.9-2); Albumin Level 3.8 gm/dl (3.4-5.0); Alkaline Phosphatase 66 U/L (34-104); Anion Gap 8 (3-11); Aspartate Aminotransferase 59 U/L (13-39); BUN Creatinine Ratio 11.1 (10-20); Bilirubin,Total 1.2 mg/dl (0.2-1.0); Blood Urea Nitrogen 5 mg/dl (6-23); Calcium 8.3 mg/dl (8.5-10.1); Carbon Dioxide 26 mmol/L (21-32); Chloride 99 mmol/L (98-107); Creatinine Clr Calc Pharmacy 198.3 ml/min; Est GFR (African American) > 150.0 ml/min; Est GFR (Non-African American) 130.1 ml/min; Globulin 2.9 gm/dl (2.5-4.0); Glucose 90 mg/dl (70-99(Fasting)); Potassium 3.5 mmol/L (3.5-5.1); Sodium 133 mmol/L (136-145); Total Protein 6.7 gm/dl (6.0-8.3)
[2022-04-24] MEDS ORDERED: THIAMINE HCL 100 MG TAB PO SCH (09:00)
[2022-04-24] MEDS: METOPROLOL TARTRATE 25 MG TAB PO SCH ×2 (09:22→20:46)
[2022-04-24] MEDS: busPIRone 5 MG TAB PO SCH ×2 (09:22→20:45)
[2022-04-24] MEDS: MAGNESIUM OXIDE 400 MG TAB PO SCH (09:23)
[2022-04-24] MEDS: PANTOprazole 40 MG TAB PO SCH (09:23)
[2022-04-24] MEDS: MULTIVITAMIN TAB PO SCH (09:23)
[2022-04-24] MEDS: FLUoxetine HCL 20 MG CAP PO SCH (09:23)
[2022-04-24] MEDS: FOLIC ACID 1 MG TAB PO SCH (09:23)
[2022-04-24] MEDS: THIAMINE HCL 100 MG TAB PO SCH (09:23)
[2022-04-24] MEDS: NICOTINE 14 MG/24 HR PATCH TD SCH (10:31)
[2022-04-24] MEDS ORDERED: ALBUT/IPRATROP 3MG/0.5MG NEB 3 ML VIAL NEB PRN (10:38)
--- NOTE | 2022-04-24 13:12 | Hospitalist Progress Note ---
Date of Service April 24, 2022 Assessment & Plan (1) Alcohol withdrawal: Plan: -patient has a history of alcohol abuse -was admitted on account of abdominal pain, tremors -Blood alcohol level was elevated -While the patient's last drink was prior to arrival to the ED he is staring to experience withdrawal symptoms including anxiety and tremor -Will start active AWSS protocol and will also start the patient on Librium dosing for liver disease -Received a banana bag ordered by the ED, will also give the patient 2 bags of IV mag and 10 meq IV KCL x 2 doses -Continue home folic acid, thiamine, multivitamin, and magnesium -Case management consult placed to assist with finding an appropriate rehab program -Monitor am CBC, CMP, and mag -DVT PPX with BL SCDs and ambulation (2) Pancreatitis: Plan: -Admitted on account of abdominal pain -Patient noted to have a lipase of 1000, consistent with acute pancreatitis, most likely alcoholic -AST and ALT are also elevated, this is not new for him -CT of the abd/pelvis consistent with acute pancreatitis, no evidence of necrosis -Will keep NPO except meds for now, -Continue aggressive IV Hydration -PRN Morphine for pain -Monitor am CBC, CMP, and mag (3) Hyponatremia: Plan: -Sodium is 132 today, he looks to have a history of mild hyponatremia in the past -Likely the result of his drinking and poor oral intake -Monitor sodium on am CMP (4) Anemia: Plan: -Patient noted to have a stable Hgb -MCV is at 101.7, MCHC is at 35 -Will order anemia labs now (5) Thrombocytopenia: Plan: -Noted to be at 110 today -This is not new for him and is close to his baseline over the past 6 months -Likely due to his drinking -Continue to monitor (6) Depression: Plan: -Patient denies suicidal and homicidal ideations at the time of the exam -Continue BuSpar and fluoxetine (7) Hypertension: Plan: -Stable -Continue metoprolol (8) Tobacco use disorder: Plan: -Nicotine patch ordered Plan continue hospitalization Admission and Anticipated Discharge Date Admission Date: April 23, 2022 Subjective patient seen and examined, still has some abdominal pain Review of Systems Review of Systems: All systems reviewed are negative, apart from the ones contained in the history. Physical Exam Physical Exam: The patient is awake, alert and oriented 3, well developed and well nourished, normocephalic and atraumatic, lying in bed and in no acute distress. HEENT--PERRL, EOMI, mucous membranes and oropharynx mildly dry Neck--supple. No JVD. No bruits. Thyroid normal, trachea midline, no adenopathy. Heart--normal S1 and S2. No murmurs, rubs or gallops. Lungs--clear bilaterally, no respiratory distress, no accessory muscle use. Abdomen--normal bowel sounds and soft. Mild epigastric and left sided abdominal pain Extremities--no cyanosis or clubbing. No edema. Dermatologic--normal skin turgor, normal color, no abnormal lymph nodes, no rash. Neurologic--cranial nerves II through XII grossly intact. Rheumatologic--normal range of motion. Psychiatric--normal affect. Results & Data Results & Data ([facility]) Vital Signs (Past 12 Hours) Vital Signs Temp Pulse Pulse Resp BP BP Pulse Ox 04/24/22 10:55 04/24/22 10:43 97.7 F 77 18 143/94 H 98 04/24/22 07:53 85 18 98 04/24/22 07:31 79 04/24/22 07:30 98.1 F 79 18 142/92 H 97 04/24/22 03:14 98.8 F 76 20 145/91 H 95 04/24/22 01:57 99.0 F 78 22 153/96 H 96 O2 Del Method 04/24/22 10:55 Room Air 04/24/22 10:43 Room Air 04/24/22 07:53 Room Air 04/24/22 07:31 04/24/22 07:30 Room Air 04/24/22 03:14 Room Air 04/24/22 01:57 Room Air PG Care Time/CCT Total # of Minutes Spent Total Time Spent with Patient: Total time spent is greater than 50% in coordination of care (as documented) at patient's floor/unit and/or counseling patient: Coding Level of Care Code 32905 SUB INP/OBS CARE 2/35MIN Diagnoses Alcohol withdrawal F10.939 Pancreatitis K85.90 Chronicity: acute Pancreatitis type: alcohol induced Hyponatremia E87.1 Anemia D64.9 Thrombocytopenia D69.6 Depression F32.A Hypertension I10 Tobacco use disorder F17.200 Time Spent (min) 35 (1) Pancreatitis Chronicity: acute Pancreatitis type: alcohol induced
[2022-04-24] MEDS: SODIUM CHLORIDE 0.9% 1000ML 1,000 ML IV SCH (13:24)
--- NOTE | 2022-04-24 21:39 | Electrocardiogram Report ---
Test Reason : Blood Pressure : / mmHG Vent. Rate : 069 BPM Atrial Rate : 069 BPM P-R Int : 154 ms QRS Dur : 100 ms QT Int : 418 ms P-R-T Axes : 016 -21 003 degrees QTc Int : 447 ms Normal sinus rhythm Incomplete right bundle branch block Minimal voltage criteria for LVH, may be normal variant Borderline ECG When compared with ECG of 18-FEB-2022 11:31, T wave inversion now evident in Inferior leads Confirmed by Emery Santos ([id number] on 04/24/2022 9:39:30 PM Referred By: REFERRED SELF Confirmed By:Emery Santos
[2022-04-25] MEDS: SODIUM CHLORIDE 0.9% 1000ML 1,000 ML IV SCH ×3 (01:07→23:39)
[2022-04-25] MEDS: LORazepam 2 MG/1 ML VIAL IV PRN ×3 (01:21→23:36)
[2022-04-25] MEDS: chlordiazePOXIDE HCl 25 MG CAP PO SCH ×2 (05:04→11:55)
[2022-04-25 06:56] LABS: Basophils # (auto) 0.01 K/uL (0-0.2); Basophils % (auto) 0.2 %; Eosinophils % (auto) 2.1 %; Hematocrit (blood only) 32.6 % (40.1-51.0); Hemoglobin 11.7 g/dl (14.0-18.0); Immature Granulocytes # (auto) 0.08 K/uL (0.00-0.02); Immature Granulocytes % (auto) 1.7 %; Lymphocytes # (auto) 0.96 K/uL (1.2-3.4); Lymphocytes % (auto) 20.4 %; Mean Corpuscular Hemoglobin 36.2 pg (25.0-34.0); Mean Corpuscular Hgb Conc 35.9 g/dL (32.0-36.0); Mean Corpuscular Volume 100.9 fL (80.0-100.0); Mean Platelet Volume 10.4 fL (9.4-12.4); Monocytes # (auto) 0.68 K/uL (0.24-0.82); Monocytes % (auto) 14.4 %; Neutrophils # (auto) 2.88 K/uL (1.4-6.5); Neutrophils % (auto) 61.2 %; Platelet Count 109 K/uL (130-400); RDW Coefficient of Variation 13.2 % (11.5-14.5); RDW Standard Deviation 48.9 fL (36.4-46.3); Red Blood Count 3.23 M/uL (4.63-6.08); White Blood Count 4.71 K/ul (4.8-10.8)
[2022-04-25 07:18] LABS: Target Cells 1+
[2022-04-25 08:05] LABS: Alanine Aminotransferase 36 U/L (7-52); Albumin Globulin Ratio 1.3 (0.9-2); Albumin Level 3.6 gm/dl (3.4-5.0); Alkaline Phosphatase 60 U/L (34-104); Anion Gap 11 (3-11); Aspartate Aminotransferase 45 U/L (13-39); BUN Creatinine Ratio 17.1 (10-20); Blood Urea Nitrogen 7 mg/dl (6-23); Calcium 8.3 mg/dl (8.5-10.1); Carbon Dioxide 23 mmol/L (21-32); Chloride 98 mmol/L (98-107); Creatinine Clr Calc Pharmacy 217.6 ml/min; Est GFR (African American) > 150.0 ml/min; Est GFR (Non-African American) 135.2 ml/min; Globulin 2.7 gm/dl (2.5-4.0); Glucose 83 mg/dl (70-99(Fasting)); Magnesium 1.8 mg/dl (1.7-2.4); Potassium 3.7 mmol/L (3.5-5.1); Sodium 132 mmol/L (136-145); Total Protein 6.3 gm/dl (6.0-8.3)
[2022-04-25] MEDS: MoRPHine SULFATE 2 MG/ML CARP IV PRN ×2 (08:50→19:48)
[2022-04-25] MEDS: FLUoxetine HCL 20 MG CAP PO SCH (08:51)
[2022-04-25] MEDS: PANTOprazole 40 MG TAB PO SCH (08:51)
[2022-04-25] MEDS: MULTIVITAMIN TAB PO SCH (08:51)
[2022-04-25] MEDS: busPIRone 5 MG TAB PO SCH ×2 (08:51→21:17)
[2022-04-25] MEDS: THIAMINE HCL 100 MG TAB PO SCH (08:51)
[2022-04-25] MEDS: METOPROLOL TARTRATE 25 MG TAB PO SCH ×2 (08:51→21:17)
[2022-04-25] MEDS: MAGNESIUM OXIDE 400 MG TAB PO SCH (08:51)
[2022-04-25] MEDS: NICOTINE 14 MG/24 HR PATCH TD SCH (08:52)
[2022-04-25] MEDS: FOLIC ACID 1 MG TAB PO SCH (08:52)
--- NOTE | 2022-04-25 13:00 | Hospitalist Progress Note ---
Date of Service April 25, 2022 Assessment & Plan (1) Alcohol withdrawal: Plan: -patient has a history of alcohol abuse -was admitted on account of abdominal pain, tremors -Blood alcohol level was elevated -Currently on CIWA protocol -Getting Librium and Ativan -No tremors on exam today -Continue PO Folic acid, Thiamine -Case management consult placed to assist with finding an appropriate rehab program -Monitor am CBC, CMP, and mag -DVT PPX with BL SCDs and ambulation (2) Pancreatitis: Plan: -Admitted on account of abdominal pain -Patient noted to have a lipase of 1000, consistent with acute pancreatitis, most likely alcoholic -AST and ALT are also elevated, this is not new for him -CT of the abd/pelvis consistent with acute pancreatitis, no evidence of necrosis -Was initially NPO, will start CLD and advance as tolerated -Continue IV Hydration -PRN Morphine for pain -Monitor am CBC, CMP, and mag (3) Hyponatremia: Plan: -Sodium is 132 today, he looks to have a history of mild hyponatremia in the past, thats his baseline -Likely the result of his drinking and poor oral intake -Monitor sodium on am CMP (4) Anemia: Plan: -Patient noted to have a stable Hgb -MCV is at 101.7, MCHC is at 35 -Will order anemia labs now (5) Thrombocytopenia: Plan: -This is not new for him and is close to his baseline over the past 6 months -Likely due to his drinking -Continue to monitor (6) Depression: Plan: -Patient denies suicidal and homicidal ideations at the time of the exam -Continue BuSpar and fluoxetine (7) Hypertension: Plan: -Stable -Continue metoprolol (8) Tobacco use disorder: Plan: -Nicotine patch ordered Plan continue hospitalization Admission and Anticipated Discharge Date Admission Date: April 25, 2022 Subjective patient seen and examined, still has some abdominal pain, will start him on cld Review of Systems Review of Systems: All systems reviewed are negative, apart from the ones contained in the history. Physical Exam Physical Exam: The patient is awake, alert and oriented 3, well developed and well nourished, normocephalic and atraumatic, lying in bed and in no acute distress. HEENT--PERRL, EOMI, mucous membranes and oropharynx mildly dry Neck--supple. No JVD. No bruits. Thyroid normal, trachea midline, no adenopathy. Heart--normal S1 and S2. No murmurs, rubs or gallops. Lungs--clear bilaterally, no respiratory distress, no accessory muscle use. Abdomen--normal bowel sounds and soft. Mild epigastric and left sided abdominal pain Extremities--no cyanosis or clubbing. No edema. Dermatologic--normal skin turgor, normal color, no abnormal lymph nodes, no rash. Neurologic--cranial nerves II through XII grossly intact. Rheumatologic--normal range of motion. Psychiatric--normal affect. Results & Data Results & Data ([facility]) Vital Signs (Past 12 Hours) Vital Signs Temp Pulse Pulse Pulse Resp BP BP 04/25/22 10:50 97.3 F L 70 18 118/76 04/25/22 10:48 04/25/22 07:19 97.7 F 94 H 18 130/90 04/25/22 07:05 70 04/25/22 04:00 98.8 F 85 18 142/94 H 04/25/22 01:15 98.1 F 86 22 141/97 H Pulse Ox O2 Del Method 04/25/22 10:50 99 Room Air 04/25/22 10:48 Room Air 04/25/22 07:19 99 Room Air 04/25/22 07:05 04/25/22 04:00 99 Room Air 04/25/22 01:15 99 Room Air PG Care Time/CCT Total # of Minutes Spent Total Time Spent with Patient: Total time spent is greater than 50% in coordination of care (as documented) at patient's floor/unit and/or counseling patient: Coding Level of Care Code 64496 SUB INP/OBS CARE 2/35MIN Diagnoses Alcohol withdrawal F10.939 Pancreatitis K85.90 Chronicity: acute Pancreatitis type: alcohol induced Hyponatremia E87.1 Anemia D64.9 Thrombocytopenia D69.6 Depression F32.A Hypertension I10 Tobacco use disorder F17.200 Time Spent (min) 35 (1) Pancreatitis Chronicity: acute Pancreatitis type: alcohol induced
[2022-04-26] MEDS: MoRPHine SULFATE 2 MG/ML CARP IV PRN ×2 (00:45→08:38)
[2022-04-26 07:54] LABS: Codeine Urine NEGATIVE ng/mL (<50); Hydrocodone Urine NEGATIVE ng/mL (<50); Hydromor Urine NEGATIVE ng/mL (<50); Morphine Urine 3520 ng/mL (<50); Norhydrocodone Conf Ur NEGATIVE ng/mL (<50); Noroxycodone Urine NEGATIVE ng/mL (<50); Oxycodone Urine NEGATIVE ng/mL (<50); Oxymorph Urine NEGATIVE ng/mL (<50)
[2022-04-26 08:39] LABS: Basophils # (auto) 0.02 K/uL (0-0.2); Basophils % (auto) 0.5 %; Eosinophils # (auto) 0.09 K/uL (0-0.50); Eosinophils % (auto) 2.4 %; Hematocrit (blood only) 35.4 % (40.1-51.0); Hemoglobin 12.8 g/dl (14.0-18.0); Immature Granulocytes # (auto) 0.01 K/uL (0.00-0.02); Immature Granulocytes % (auto) 0.3 %; Lymphocytes # (auto) 1.13 K/uL (1.2-3.4); Mean Corpuscular Hemoglobin 36.7 pg (25.0-34.0); Mean Corpuscular Hgb Conc 36.2 g/dL (32.0-36.0); Mean Corpuscular Volume 101.4 fL (80.0-100.0); Mean Platelet Volume 10.3 fL (9.4-12.4); Monocytes # (auto) 0.43 K/uL (0.24-0.82); Monocytes % (auto) 11.4 %; Neutrophils # (auto) 2.09 K/uL (1.4-6.5); Neutrophils % (auto) 55.4 %; Platelet Count 144 K/uL (130-400); RDW Coefficient of Variation 13.1 % (11.5-14.5); RDW Standard Deviation 49.1 fL (36.4-46.3); Red Blood Count 3.49 M/uL (4.63-6.08); White Blood Count 3.77 K/ul (4.8-10.8)
[2022-04-26] MEDS: NICOTINE 14 MG/24 HR PATCH TD SCH (08:43)
[2022-04-26] MEDS: busPIRone 5 MG TAB PO SCH ×2 (08:44→21:03)
[2022-04-26] MEDS: METOPROLOL TARTRATE 25 MG TAB PO SCH ×2 (08:45→21:04)
[2022-04-26] MEDS: FLUoxetine HCL 20 MG CAP PO SCH (08:45)
[2022-04-26] MEDS: MAGNESIUM OXIDE 400 MG TAB PO SCH (08:45)
[2022-04-26] MEDS: FOLIC ACID 1 MG TAB PO SCH (08:45)
[2022-04-26] MEDS: THIAMINE HCL 100 MG TAB PO SCH (08:46)
[2022-04-26] MEDS: PANTOprazole 40 MG TAB PO SCH (08:46)
[2022-04-26] MEDS: MULTIVITAMIN TAB PO SCH (08:46)
[2022-04-26] MEDS ORDERED: HYDROCODONE/ACETAMOPHEN 5/325MG TAB PO PRN (09:59)
[2022-04-26 10:05] LABS: Alanine Aminotransferase 79 U/L (7-52); Albumin Globulin Ratio 1.1 (0.9-2); Albumin Level 3.5 gm/dl (3.4-5.0); Alkaline Phosphatase 62 U/L (34-104); Anion Gap 10 (3-11); Aspartate Aminotransferase 139 U/L (13-39); BUN Creatinine Ratio 12.2 (10-20); Bilirubin,Total 0.9 mg/dl (0.2-1.0); Blood Urea Nitrogen 5 mg/dl (6-23); Calcium 8.8 mg/dl (8.5-10.1); Carbon Dioxide 23 mmol/L (21-32); Chloride 101 mmol/L (98-107); Creatinine Clr Calc Pharmacy 217.6 ml/min; Est GFR (African American) > 150.0 ml/min; Est GFR (Non-African American) 135.2 ml/min; Globulin 3.1 gm/dl (2.5-4.0); Glucose 114 mg/dl (70-99(Fasting)); Magnesium 1.7 mg/dl (1.7-2.4); Potassium 3.9 mmol/L (3.5-5.1); Sodium 134 mmol/L (136-145); Total Protein 6.6 gm/dl (6.0-8.3)
--- NOTE | 2022-04-26 12:26 | Hospitalist Progress Note ---
Date of Service April 26, 2022 Assessment & Plan (1) Alcohol withdrawal: Plan: -patient has a history of alcohol abuse -was admitted on account of abdominal pain, tremors -Blood alcohol level was elevated -Currently on CIWA protocol -On Librium taper and Ativan -No tremors on exam today -Continue PO Folic acid, Thiamine -Case management consult placed to assist with finding an appropriate rehab program -Monitor am CBC, CMP, and mag -DVT PPX with BL SCDs and ambulation (2) Pancreatitis: Plan: -Admitted on account of abdominal pain -Patient noted to have a lipase of 1000, consistent with acute pancreatitis, most likely alcoholic -AST and ALT are also elevated, this is not new for him -CT of the abd/pelvis consistent with acute pancreatitis, no evidence of necrosis -diet has been advanced -Continue IV Hydration -PRN [place] for pain -Monitor am CBC, CMP, and mag (3) Hyponatremia: Plan: -He appears to have a history of mild hyponatremia in the past, thats his baseline -Likely the result of his drinking and poor oral intake -Monitor sodium on am CMP (4) Anemia: Plan: -Patient noted to have a stable Hgb -MCV is at 101.7, MCHC is at 35 -Will order anemia labs now (5) Thrombocytopenia: Plan: -This is not new for him and is close to his baseline over the past 6 months -Likely due to his drinking -Continue to monitor (6) Depression: Plan: -Patient denies suicidal and homicidal ideations at the time of the exam -Continue BuSpar and fluoxetine (7) Hypertension: Plan: -Stable -Continue metoprolol (8) Tobacco use disorder: Plan: -Nicotine patch ordered Plan javi d/c in the next 24 hrs Admission and Anticipated Discharge Date Admission Date: April 25, 2022 Subjective patient seen and examined, still has some abdominal pain,tolerated cld, will advance Review of Systems Review of Systems: All systems reviewed are negative, apart from the ones contained in the history. Physical Exam Physical Exam: The patient is awake, alert and oriented 3, well developed and well nourished, normocephalic and atraumatic, lying in bed and in no acute distress. HEENT--PERRL, EOMI, mucous membranes and oropharynx mildly dry Neck--supple. No JVD. No bruits. Thyroid normal, trachea midline, no adenopathy. Heart--normal S1 and S2. No murmurs, rubs or gallops. Lungs--clear bilaterally, no respiratory distress, no accessory muscle use. Abdomen--normal bowel sounds and soft. Mild epigastric and left sided abdominal pain Extremities--no cyanosis or clubbing. No edema. Dermatologic--normal skin turgor, normal color, no abnormal lymph nodes, no rash. Neurologic--cranial nerves II through XII grossly intact. Rheumatologic--normal range of motion. Psychiatric--normal affect. Results & Data Results & Data ([facility]) Vital Signs (Past 12 Hours) Vital Signs Temp Pulse Pulse Resp BP BP Pulse Ox 04/26/22 12:08 98.2 F 74 19 146/88 H 96 04/26/22 08:04 98.4 F 75 19 134/82 98 04/26/22 07:37 65 04/26/22 05:49 98.4 F 66 18 142/82 H 98 04/26/22 02:58 98.4 F 70 155/95 H 99 04/26/22 01:14 98.6 F 76 20 135/95 98 O2 Del Method 04/26/22 12:08 Room Air 04/26/22 08:04 Room Air 04/26/22 07:37 04/26/22 05:49 Room Air 04/26/22 02:58 Room Air 04/26/22 01:14 Room Air PG Care Time/CCT Total # of Minutes Spent Total Time Spent with Patient: Total time spent is greater than 50% in coordination of care (as documented) at patient's floor/unit and/or counseling patient: Coding Level of Care Code 97302 SUB INP/OBS CARE 2/35MIN Diagnoses Alcohol withdrawal F10.939 Pancreatitis K85.90 Chronicity: acute Pancreatitis type: alcohol induced Hyponatremia E87.1 Anemia D64.9 Thrombocytopenia D69.6 Depression F32.A Hypertension I10 Tobacco use disorder F17.200 Time Spent (min) 35 (1) Pancreatitis Chronicity: acute Pancreatitis type: alcohol induced
[2022-04-26] MEDS: SODIUM CHLORIDE 0.9% 1000ML 1,000 ML IV SCH (12:34)
[2022-04-26] MEDS: LORazepam 2 MG/1 ML VIAL IV PRN (12:43)
[2022-04-26] MEDS: chlordiazePOXIDE HCl 5 MG CAP PO SCH (21:13)
[2022-04-27] MEDS: LORazepam 2 MG/1 ML VIAL IV PRN ×2 (01:10→22:18)
[2022-04-27] MEDS: SODIUM CHLORIDE 0.9% 1000ML 1,000 ML IV SCH ×2 (04:22→16:44)
[2022-04-27] MEDS ORDERED: bisacodyL 5 MG TABEC PO ONE (09:37)
[2022-04-27] MEDS: FLUoxetine HCL 20 MG CAP PO SCH (10:27)
[2022-04-27] MEDS: MAGNESIUM OXIDE 400 MG TAB PO SCH (10:27)
[2022-04-27] MEDS: FOLIC ACID 1 MG TAB PO SCH (10:27)
[2022-04-27] MEDS: busPIRone 5 MG TAB PO SCH ×2 (10:27→22:07)
[2022-04-27] MEDS: POLYETHYLENE (MIRALAX) 17 GM PACK PO SCH (10:28)
[2022-04-27] MEDS: MULTIVITAMIN TAB PO SCH (10:28)
[2022-04-27] MEDS: PANTOprazole 40 MG TAB PO SCH (10:28)
[2022-04-27] MEDS: METOPROLOL TARTRATE 25 MG TAB PO SCH ×2 (10:28→22:06)
[2022-04-27] MEDS: THIAMINE HCL 100 MG TAB PO SCH (10:28)
[2022-04-27] MEDS: NICOTINE 14 MG/24 HR PATCH TD SCH (10:28)
[2022-04-27] MEDS: chlordiazePOXIDE HCl 5 MG CAP PO SCH (10:51)
--- NOTE | 2022-04-27 14:10 | Hospitalist Progress Note ---
Date of Service April 27, 2022 Assessment & Plan (1) Alcohol withdrawal: Plan: -patient has a history of alcohol abuse -was admitted on account of abdominal pain, tremors -Blood alcohol level was elevated -Currently on CIWA protocol -Completed Librium taper -No tremors on exam today -Continue PO Folic acid, Thiamine -Case management consult placed to assist with finding an appropriate rehab program -Monitor am CBC, CMP, and mag -DVT PPX with BL SCDs and ambulation (2) Pancreatitis: Plan: -Admitted on account of abdominal pain -Patient noted to have a lipase of 1000, consistent with acute pancreatitis, most likely alcoholic -AST and ALT are also elevated, this is not new for him -CT of the abd/pelvis consistent with acute pancreatitis, no evidence of necrosis -diet has been advanced -PRN [place] for pain -Monitor am CBC, CMP, and mag (3) Hyponatremia: Plan: -He appears to have a history of mild hyponatremia in the past, thats his baseline -Likely the result of his drinking and poor oral intake -Monitor sodium on am CMP (4) Anemia: Plan: -Patient noted to have a stable Hgb -MCV is at 101.7, MCHC is at 35 -Will order anemia labs now (5) Thrombocytopenia: Plan: -This is not new for him and is close to his baseline over the past 6 months -Likely due to his drinking -Continue to monitor (6) Depression: Plan: -Patient denies suicidal and homicidal ideations at the time of the exam -Continue BuSpar and fluoxetine (7) Hypertension: Plan: -Stable -Continue metoprolol (8) Tobacco use disorder: Plan: -Nicotine patch ordered Plan javi d/c in the next 24 hrs, he wants outpatient alcohol rehab Admission and Anticipated Discharge Date Admission Date: April 25, 2022 Subjective patient seen and examined, abdominal pain is essentially resolved, tolerated regular diet Review of Systems Review of Systems: All systems reviewed are negative, apart from the ones contained in the history. Physical Exam Physical Exam: The patient is awake, alert and oriented 3, well developed and well nourished, normocephalic and atraumatic, lying in bed and in no acute distress. HEENT--PERRL, EOMI, mucous membranes and oropharynx mildly dry Neck--supple. No JVD. No bruits. Thyroid normal, trachea midline, no a denopathy. Heart--normal S1 and S2. No murmurs, rubs or gallops. Lungs--clear bilaterally, no respiratory distress, no accessory muscle use. Abdomen--normal bowel sounds and soft. Mild epigastric and left sided abdominal pain Extremities--no cyanosis or clubbing. No edema. Dermatologic--normal skin turgor, normal color, no abnormal lymph nodes, no rash. Neurologic--cranial nerves II through XII grossly intact. Rheumatologic--normal range of motion. Psychiatric--normal affect. Results & Data Results & Data ([facility]) Vital Signs (Past 12 Hours) Vital Signs Temp Pulse Pulse Resp BP Pulse Ox O2 Del Method 04/27/22 11:55 98.1 F 69 18 133/87 97 Room Air 04/27/22 07:48 97.9 F 71 18 148/87 H 97 Room Air 04/27/22 07:44 59 L 04/27/22 03:00 98.2 F 62 18 162/98 H 97 Room Air PG Care Time/CCT Total # of Minutes Spent Total Time Spent with Patient: Total time spent is greater than 50% in coordination of care (as documented) at patient's floor/unit and/or counseling patient: Coding Level of Care Code 68585 SUB INP/OBS CARE 2/35MIN Diagnoses Alcohol withdrawal F10.939 Pancreatitis K85.90 Chronicity: acute Pancreatitis type: alcohol induced Hyponatremia E87.1 Anemia D64.9 Thrombocytopenia D69.6 Depression F32.A Hypertension I10 Tobacco use disorder F17.200 Time Spent (min) 35 (1) Pancreatitis Chronicity: acute Pancreatitis type: alcohol induced
[2022-04-28] MEDS: SODIUM CHLORIDE 0.9% 1000ML 1,000 ML IV SCH ×2 (05:03→08:15)
[2022-04-28] MEDS: MAGNESIUM OXIDE 400 MG TAB PO SCH (08:16)
[2022-04-28] MEDS: METOPROLOL TARTRATE 25 MG TAB PO SCH (08:16)
[2022-04-28] MEDS: busPIRone 5 MG TAB PO SCH (08:16)
[2022-04-28] MEDS: MULTIVITAMIN TAB PO SCH (08:16)
[2022-04-28] MEDS: FLUoxetine HCL 20 MG CAP PO SCH (08:16)
[2022-04-28] MEDS: NICOTINE 14 MG/24 HR PATCH TD SCH (08:16)
[2022-04-28] MEDS: FOLIC ACID 1 MG TAB PO SCH (08:16)
[2022-04-28] MEDS: PANTOprazole 40 MG TAB PO SCH (08:16)
[2022-04-28] MEDS: THIAMINE HCL 100 MG TAB PO SCH (08:16)
[2022-04-28] MEDS: POLYETHYLENE (MIRALAX) 17 GM PACK PO SCH (08:17)
--- NOTE | 2022-04-28 13:12 | Discharge Summary ---
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 In the ED the patient was found to be afebrile, hemodynamically stable, stable on RA. Labs were remarkable for a WBC WNL, stable hgb, platelet count of 110 (appears close to his baseline over the past 2 years), MCV of 101.t, with HCT of 36.2 and MCHC of 35.9, stable cr of 0.51, sodium of 132, AG 14 with a bicarb of 21, potassium of 3.7, mag of 1.7, total bili of 1.1, AST of 84, ALT of 57, alk phos of 72, lipase of 1070, TSH WNL, alcohol level of 221, and negative salicylate and acetaminophen levels, and covid positive. Chest xray was read as "Cardiomegaly with no active disease in the chest.". Prior to admission the patient was given 4 mg IV morphine and a Banana bag. At the time of the exam the patient was resting comfortably in bed in no acute distress. He states that he has had a long history of alcohol abuse, he started drinking again last month due to feeling depressed and lonely. When asked, he states that he has been drinking 6-10 hard seltzers daily, his last drink was approximately one hour prior to arrival to the ED. When asked about his withdrawal history he states that he has a "distant" history of a withdrawal seizure but has never had to be intubated in the past. He states at the time of the exam that he is starting to feel anxious and beginning to have a tremor. He states that he feels as though he is starting to withdrawal. He noted epigastric and LUQ abdominal pain, this is exacerbated with eating and drinking. He has been nauseous but has not yet vomited. He denies dysuria, hematuria, melena, diarrhea, and bright red bowel movements. Taking deep breaths exacerbates his abdominal pain and he denies any other chest pain. He is currently smoking approximately 1/2 pack of cigarettes daily and would be interested in a nicotine patch. When asked, he states that he is interested in pursuing rehab on discharge. He currently denies suicidal and homicidal ideations. He is a full code and he would want his sister, Miranda Prince ([phone]) to make decisions for him if he could not make them himself. Please refer to Dr. Morales's attestation for any changes to the treatment plan. Principal Diagnosis alcohol withdrawal Discharge Exam The patient is awake, alert and oriented 3, well developed and well nourished, normocephalic and atraumatic, lying in bed and in no acute distress. HEENT--PERRL, EOMI, mucous membranes and oropharynx mildly dry Neck--supple. No JVD. No bruits. Thyroid normal, trachea midline, no adenopathy. Heart--normal S1 and S2. No murmurs, rubs or gallops. Lungs--clear bilaterally, no respiratory distress, no accessory muscle use. Abdomen--normal bowel sounds and soft. Mild epigastric and left sided abdominal pain Extremities--no cyanosis or clubbing. No edema. Dermatologic--normal skin turgor, normal color, no abnormal lymph nodes, no rash. Neurologic--cranial nerves II through XII grossly intact. Rheumatologic--normal range of motion. Psychiatric--normal affect. Discharge Data Allergies Allergy/AdvReac Type Severity Reaction Status Date / Time No Known Allergies Allergy Verified 02/24/22 11:01 Consultations 04/23/22 19:39 ED Decision to Admit Stat Ordered Studies 04/23/22 19:41 CT Abd and Pelvis [CT abd pelvis IV con only] Stat Hospital Course (1) Alcohol withdrawal: -patient has a history of alcohol abuse -was admitted on account of abdominal pain, tremors -Blood alcohol level was elevated -Currently on CIWA protocol -Completed Librium taper -No tremors on exam today -Continue PO Folic acid, Thiamine -Case management consult placed to assist with finding an appropriate rehab program -Monitor am CBC, CMP, and mag -DVT PPX with BL SCDs and ambulation (2) Pancreatitis: -Admitted on account of abdominal pain -Patient noted to have a lipase of 1000, consistent with acute pancreatitis, most likely alcoholic -AST and ALT are also elevated, this is not new for him -CT of the abd/pelvis consistent with acute pancreatitis, no evidence of necrosi s -diet has been advanced -PRN [place] for pain -Monitor am CBC, CMP, and mag (3) Hyponatremia: -He appears to have a history of mild hyponatremia in the past, thats his baseli ne -Likely the result of his drinking and poor oral intake -Monitor sodium on am CMP (4) Anemia: -Patient noted to have a stable Hgb -MCV is at 101.7, MCHC is at 35 -Will order anemia labs now (5) Thrombocytopenia: -This is not new for him and is close to his baseline over the past 6 months -Likely due to his drinking -Continue to monitor (6) Depression: -Patient denies suicidal and homicidal ideations at the time of the exam -Continue BuSpar and fluoxetine (7) Hypertension: -Stable -Continue metoprolol (8) Tobacco use disorder: -Nicotine patch ordered Plan javi d/c in the next 24 hrs, he wants outpatient alcohol rehab Total Time Total Time Spent Total Time Spent (In Minutes): 35 Discharge Plan Discharge Items Patient Disposition: Home - Self-Care Reason For Visit: ALCOHOL WITHDRAWAL Discharge Diagnosis: Alcohol withdrawal, acute pancreatitis Activity: Resume your previous activity Non-emergency contact: Primary Care Provider Call non-emergency contact if: you have any medication questions Follow-up/Referrals: Kvng Mcghee III, CRNP [Primary Care Provider] - (PLEASE CALL TO SCHEDULE A DISCHARGE FOLLOW-UP APPOINTMENT WITHIN 7-10 DAYS.) Diet: Regular Addtl Attending Provider Instructions: please make appointment to follow up with outpatient alcohol rehab Pending Studies at Discharge: No Stand-Alone Forms: My [facility], Smoking Cessation Medications and DC Order Prescriptions: Continued metoprolol tartrate 25 mg tablet 12.5 mg PO BID Qty: 60 5RF folic acid 1 mg tablet See Rx Instructions .ROUTE .COMPLEX Qty: 90 1RF Dose Instruction: TAKE 1 TAB ORALLY DAILY IN THE MORNING Rx Instructions: TAKE 1 TAB ORALLY DAILY IN THE MORNING potassium chloride 10 mEq tablet extended release 10 meq PO BID 7 Days Qty: 14 0RF pantoprazole 40 mg tablet,delayed release (DR/EC) See Rx Instructions .ROUTE .COMPLEX Qty: 30 5RF Dose Instruction: TAKE 1 TABLET BY MOUTH EVERY DAY Rx Instructions: TAKE 1 TABLET BY MOUTH EVERY DAY magnesium oxide 400 mg magnesium capsule 400 mg PO DAILY Qty: 30 1RF thiamine HCl (vitamin B1) 100 mg tablet 100 mg PO QAM Qty: 30 5RF fluoxetine 40 mg capsule 40 mg PO DAILY Qty: 30 2RF multivitamin Tablet 1 tab PO DAILY buspirone 5 mg tablet 5 mg PO BID Rx Instructions: TAKE 1 TABLET BY MOUTH TWICE A DAY Discharge Orders: Discharge Order (Routine); Ordered 04/28/22 Ordered By: Cholo Plummer/Other Patient Handouts: Social Drinking vs Problem Drinking, SCI Alcohol Use, Understanding Cirrhosis, Understanding Pancreatitis, Alcohol Withdrawal: What to Expect, Pancreatitis Acute Dc, ED Alcohol Withdrawal, ED Pancreatitis Admission Data Admit Date/Time: 04/25/22 10:09 Attending Provider: Cholo Call Admit Provider: Norma Morales Primary Care Provider: Kvng Mcghee III Other Providers: Norma Morales Other Interventions: Discharge Summary Assessment (RN) Last Done: 04/28/22 12:51 Coding Level of Care Code HOSP INP/OBS DISCH >30 MIN Diagnoses Alcohol withdrawal F10.939 Pancreatitis K85.90 Chronicity: acute Pancreatitis type: alcohol induced Hyponatremia E87.1 Anemia D64.9 Thrombocytopenia D69.6 Depression F32.A Hypertension I10 Tobacco use disorder F17.200 Time Spent (min) 35
== END 2022-04-28 13:02 | disposition home or self-care (01) | DRG 439 ==
LOC: 2W 17:08 → ED 17:08 → SUATTDRO 19:12 → 2W 20:34

== ENCOUNTER 2022-07-11 19:54 | Inpatient (IN) ==
[2022-07-11] MEDS ORDERED: SODIUM CHLORIDE 0.9% 500 ML IV STA (20:01)
[2022-07-11 20:49] LABS: Basophils # (auto) 0.04 K/uL (0-0.2); Basophils % (auto) 0.7 %; Eosinophils # (auto) 0.12 K/uL (0-0.50); Hematocrit (blood only) 26.3 % (42.0-52.0); Hemoglobin 9.9 g/dl (14.0-18.0); Immature Granulocytes # (auto) 0.01 K/uL (0.01-0.20); Immature Granulocytes % (auto) 0.2 %; Lymphocytes # (auto) 2.16 K/uL (1.2-3.4); Lymphocytes % (auto) 36.2 %; Mean Corpuscular Hemoglobin 35.6 pg (25.0-34.0); Mean Corpuscular Hgb Conc 37.6 g/dL (32.0-36.0); Mean Corpuscular Volume 94.6 fL (80.0-100.0); Mean Platelet Volume 9.7 fL (9.4-12.4); Monocytes # (auto) 0.72 K/uL (0.11-0.59); Monocytes % (auto) 12.1 %; Neutrophils # (auto) 2.92 K/uL (1.40-6.50); Neutrophils % (auto) 48.8 %; Platelet Count 236 K/uL (130-400); RDW Coefficient of Variation 16.7 % (11.5-14.5); RDW Standard Deviation 57.1 fL (36.4-46.3); Red Blood Count 2.78 M/uL (4.70-6.10); White Blood Count 5.97 K/ul (4.8-10.8)
[2022-07-11 21:10] LABS: Alanine Aminotransferase 43 U/L (7-52); Albumin Globulin Ratio 1.1 (0.9-2); Albumin Level 3.4 gm/dl (3.4-5.0); Alkaline Phosphatase 114 U/L (34-104); Anion Gap 13 (3-11); Aspartate Aminotransferase 127 U/L (13-39); BUN Creatinine Ratio 6.3 (10-20); Bilirubin,Total 0.9 mg/dl (0.2-1.0); Blood Urea Nitrogen 5 mg/dl (6-23); Calcium 7.8 mg/dl (8.6-10.3); Carbon Dioxide 25 mmol/L (21-32); Chloride 94 mmol/L (98-107); Est GFR (African American) 119.7 ml/min; Est GFR (Non-African American) 103.2 ml/min; Glucose 111 mg/dl (70-99(Fasting)); Lipase 70 U/L (11-82); Potassium 2.3 mmol/L (3.5-5.1); Sodium 132 mmol/L (136-145); Total Protein 6.4 gm/dl (6.0-8.3)
--- NOTE | 2022-07-11 21:15 | Emergency Department Note ---
Impression & Plan Hypokalemia, Anemia, Alcohol intoxication, Hyponatremia, Weakness, Ambulatory dysfunction ED Provider Note NAME: BINA GATES AGE: 51 SEX: M : 1970 ARRIVES VIA: Walk-In INFORMANT: Patient, ED PROVIDER(S): Mat Arias MD CHIEF COMPLAINT: Weakness, alcohol use MEDICAL DECISION MAKING: Patient presents due to concern for ambulatory dysfunction and chronic alcohol use. IV was established blood was obtained patient was ordered multivitamin IV fluids. The patient's blood work shows a normal white count anemia hemoglobin 9.9. Normal platelet count. Kidney function is unremarkable but hyponatremia likely secondary to the patient's alcohol use. Potassium low at 2.3. Patient was ordered replete meant mag is normal. Did order B12 and folic acid levels. Patient's B12 and folate are normal. Patient's current alcohol 295. Given the patient's hypokalemia and associated ambulatory dysfunction I did speak the on- call hospitalist service and the patient was admitted to medicine by Dr. Morales. CT head negative. Prior /Outside records reviewed: None Differential diagnosis: Infection, dehydration, metabolic abnormality, hypo/hyperglycemia, electrolyte disturbance, anemia, hypoxia, cardiac sources, intracerebral event, toxicologic, neurologic, as well as other pathologies. Diagnostics, as interpreted by me: ECG: Normal sinus rhythm, rate of 79, normal intervals normal axis, ST depressions in the lateral leads. No ST elevations. Cardiac monitoring: An order was placed for continuous cardiac monitoring. The monitor shows a rate of 82 with sinus rhythm. Patient was placed on pulse oximetry Medical decision rules: none Imaging studies: See below HPI: Patient presents with sister bedside due to concern for weakness and ambulatory dysfunction. The patient relates that he does suffer from alcoholism and had been sober for period of time but began drinking again approximate 2 mon ths prior. The patient is been drinking 6-8 hard seltzers daily. Patient has noticed these had some increasing weakness as well as ambulatory dysfunction unsteady gait. No falls or trauma. Patient denies any focal weakness. No head or neck pain. Patient does not take any blood thinning medications. The patient is not currently employed. PAST MEDICAL HISTORY: See Below PAST SURGICAL HISTORY: See Below SOCIAL HISTORY: See Below HOME MEDICATIONS: See Below ALLERGIES: See Below VITALS: See Below PHYSICAL EXAMINATION: GENERAL: NAD, wearing a mask, non-toxic. EYE EXAM: Normal conjunctiva. PERRL, no anisocoria and EOM's grossly intact w/o pain. NECK: Supple, no nuchal rigidity, no adenopathy, non-tender. No signs of meningismus. FROM of the neck with good chin to chest and neck extension. No stridor. LUNGS: Clear to auscultation. Normal chest wall mechanics. HEART: NSR, no MRG. ABDOMEN: Abdomen soft, non-tender, no masses, no rebound or guarding. BACK: No CVA TTP. SKIN: No rashes and no bruising. UPPER EXTREMITIES: Upper extremities are grossly normal. LOWER EXTREMITIES: Grossly normal, no edema. NEURO EXAM: A&O x3, cranial nerves II-XII grossly intact, normal speech, moves all 4 extremities. 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 Chronic alcohol use GI bleed Hypertension Hypertensive urgency Left foot drop Metabolic acidosis Pancreatitis Sensory polyneuropathy Smokes 1 pack of cigarettes per day Surgical History No pertinent past surgical history Family History Other Adopted Social History Smoking Status: Heavy tobacco smoker Tobacco Type: Cigarettes packs per day: 1; Cigarettes Per Day: 1/2 pack; Second Hand Exposure: No; Do You Dip or Chew Tobacco: No; Hx Alcohol Use: Yes Alcohol type: hard liquor Alcohol Intake Frequency Comment: 1/2 to one 5th of vodka daily, some beer Hx Substance Use: No Preferred Language: Tajik Communication Ability: Effective Sanitation Worker Required: No Beliefs That Will Affect Care: None marital status: Single Current Living Situation: Alone current occupational status: previously employed current occupation: Recently lost job working in an [employer] service How many Children do You have: 0 Other Information That Helps Us Care for You: No Feels Safe at Home: Yes Safety Concerns: Feels Safe At This Time Assistive Devices: Glasses Allergies Allergies Allergy/AdvReac Type Severity Reaction Status Date / Time No Known Allergies Allergy Verified 07/11/22 22:46 Home Meds Home Medications Medication Instructions Recorded Confirmed multivitamin 1 tab PO DAILY 08/13/21 07/11/22 buspirone 5 mg tablet 5 mg PO BID 04/23/22 07/11/22 folic acid 1 mg tablet 1 mg PO DAILY 07/11/22 07/11/22 melatonin 12 mg tablet 12 mg PO HS 07/11/22 07/11/22 metoprolol tartrate 25 mg tablet 25 mg PO BID 07/11/22 07/11/22 pantoprazole 40 mg tablet,delayed 40 mg PO DAILY 07/11/22 07/11/22 release Previous Rx's Medication Instructions Recorded fluoxetine 40 mg capsule 40 mg PO DAILY #30 caps 06/01/22 magnesium oxide 400 mg PO DAILY #30 caps 06/14/22 thiamine HCl (vitamin B1) 100 mg 100 mg PO QAM #30 tabs 06/14/22 tablet Results & Data (ED) Vital Signs Vital Signs - 24 hr 07/11/22 23:48 07/12/22 00:00 07/12/22 00:00 Pulse Rate 65 Pulse Rate [Right Finger] 69 Respiratory Rate 18 20 Respiratory Effort / Characteristics Non-Labored Respiratory Depth Normal Blood Pressure 98/63 L Blood Pressure [Right Arm] 92/71 L Blood Pressure Mean 74 Blood Pressure Mean [Right Arm] 78 Pulse Oximetry 100 98 Oxygen Delivery Method Room Air Room Air Home Medications Current Medication List: was personally reviewed by me Laboratory Data Attestation: I reviewed the patient's lab results. 07/11/22 20:12 07/11/22 20:12 Lab Results 07/11/22 07/11/22 07/11/22 Range/Units 20:12 20:12 20:12 WBC 5.97 (4.8-10.8) K/ul RBC 2.78 L (4.70-6.10) M/uL Hgb 9.9 L (14.0-18.0) g/dl Hct 26.3 L (42.0-52.0) % MCV 94.6 (80.0-100.0) fL MCH 35.6 H (25.0-34.0) pg MCHC 37.6 H (32.0-36.0) g/dL RDW Std Deviation 57.1 H (36.4-46.3) fL RDW Coeff of Arturo 16.7 H (11.5-14.5) % Plt Count 236 (130-400) K/uL MPV 9.7 (9.4-12.4) fL Immature Gran % (Auto) 0.2 % Neut % (Auto) 48.8 % Lymph % (Auto) 36.2 % M[place]och % (Auto) 12.1 % Eos % (Auto) 2.0 % Baso % (Auto) 0.7 % Neut # (Auto) 2.92 (1.40-6.50) K/uL Lymph # (Auto) 2.16 (1.2-3.4) K/uL [place] # (Auto) 0.72 H (0.11-0.59) K/uL Eos # (Auto) 0.12 (0-0.50) K/uL Baso # (Auto) 0.04 (0-0.2) K/uL Immature Gran # (Auto) 0.01 (0.01-0.20) K/uL Sodium 132 L (136-145) mmol/L Potassium 2.3 L* (3.5-5.1) mmol/L Chloride 94 L (98-107) mmol/L Carbon Dioxide 25 (21-32) mmol/L Anion Gap 13 H (3-11) BUN 5 L (6-23) mg/dl Creatinine 0.79 (0.6-1.4) mg/dl Est Cr Clr Drug Dosing Not Reportable Est GFR ( Amer) 119.7 ml/min Est GFR (Non-Af Amer) 103.2 ml/min BUN/Creatinine Ratio 6.3 L (10-20) Glucose 111 H (70-99(Fasting)) mg/dl Osmolality (280-300) mOsm/kg Calcium 7.8 L (8.6-10.3) mg/dl Magnesium 1.7 (1.7-2.4) mg/dl Iron 107 (35-175) mcg/dl TIBC 184 L (250-450) mcg/dl Unsaturated IBC 77 L (155-355) mcg/dl Transferrin % Sat 58 H (20-50) % Ferritin 1875.0 H (8-388) ng/ml Total Bilirubin 0.9 (0.2-1.0) mg/dl AST 127 H (13-39) U/L ALT 43 (7-52) U/L Alkaline Phosphatase 114 H (34-104) U/L Total Protein 6.4 (6.0-8.3) gm/dl Albumin 3.4 (3.4-5.0) gm/dl Globulin 3.0 (2.5-4.0) gm/dl Albumin/Globulin Ratio 1.1 (0.9-2) Lipase 70 (11-82) U/L Vitamin B12 (180-914) pg/ml Folate (>5.38) ng/ml Urine Color Urine Appearance (Clear) Urine pH (4.5-7.5) Ur Specific [place] (1.000-1.030) Urine Protein (Negative) Urine Glucose (UA) (Negative) Urine Ketones (Negative) Urine Blood (Negative) Urine Nitrite (Negative) Urine Bilirubin (Negative) Urine Urobilinogen (Negative) Ur Leukocyte Esterase (Negative) Urine WBC (Auto) (0-5) /hpf Urine RBC (Auto) (0-4) /hpf U Hyaline Cast (Auto) (0-5) /lpf U Epithel Cells (Auto) (0-5) /lpf Urine Bacteria (Auto) (Negative) Ur Renal Epithelial Cell (0-5) /lpf Urine Osmolality (500-800) mOsm/kg Urine Sodium mmol/L Urine Potassium mmol/L Urine Chloride mmol/L Urine Opiates Screen (Neg) Ur Methadone, Qual (Neg) Urine Barbiturates (Neg) Ur Phencyclidine (PCP) (Neg) U Amphetamin/Meth Scrn (Neg) MDMA (Ecstasy) Screen (Neg) U Benzodiazepines Scrn (Neg) Ur Cocaine Metabolite (Neg) U Marijuana (THC) Screen (Neg) Ethyl Alcohol mg/dL 295.7 H (<10.0) mg/dl SARS-CoV-2, RNA, NAAT (NEGATIVE) 07/11/22 07/11/22 07/11/22 Range/Units 20:12 20:12 21:17 WBC (4.8-10.8) K/ul RBC (4.70-6.10) M/uL Hgb (14.0-18.0) g/dl Hct (42.0-52.0) % MCV (80.0-100.0) fL MCH (25.0-34.0) pg MCHC (32.0-36.0) g/dL RDW Std Deviation (36.4-46.3) fL RDW Coeff of Arturo (11.5-14.5) % Plt Count (130-400) K/uL MPV (9.4-12.4) fL Immature Gran % (Auto) % Neut % (Auto) % Lymph % (Auto) % [place] % (Auto) % Eos % (Auto) % Baso % (Auto) % Neut # (Auto) (1.40-6.50) K/uL Lymph # (Auto) (1.2-3.4) K/uL [place] # (Auto) (0.11-0.59) K/uL Eos # (Auto) (0-0.50) K/uL Baso # (Auto) (0-0.2) K/uL Immature Gran # (Auto) (0.01-0.20) K/uL Sodium (136-145) mmol/L Potassium (3.5-5.1) mmol/L Chloride (98-107) mmol/L Carbon Dioxide (21-32) mmol/L Anion Gap (3-11) BUN (6-23) mg/dl Creatinine (0.6-1.4) mg/dl Est Cr Clr Drug Dosing Est GFR ( Amer) ml/min Est GFR (Non-Af Amer) ml/min BUN/Creatinine Ratio (10-20) Glucose (70-99(Fasting)) mg/dl Osmolality 346 H (280-300) mOsm/kg Calcium (8.6-10.3) mg/dl Magnesium Cancelled (1.7-2.4) mg/dl Iron (35-175) mcg/dl TIBC (250-450) mcg/dl Unsaturated IBC (155-355) mcg/dl Transferrin % Sat (20-50) % Ferritin (8-388) ng/ml Total Bilirubin (0.2-1.0) mg/dl AST (13-39) U/L ALT (7-52) U/L Alkaline Phosphatase (34-104) U/L Total Protein (6.0-8.3) gm/dl Albumin (3.4-5.0) gm/dl Globulin (2.5-4.0) gm/dl Albumin/Globulin Ratio (0.9-2) Lipase (11-82) U/L Vitamin B12 632 (180-914) pg/ml Folate 16.97 (>5.38) ng/ml Urine Color Urine Appearance (Clear) Urine pH (4.5-7.5) Ur Specific [place] (1.000-1.030) Urine Protein (Negative) Urine Glucose (UA) (Negative) Urine Ketones (Negative) Urine Blood (Negative) Urine Nitrite (Negative) Urine Bilirubin (Negative) Urine Urobilinogen (Negative) Ur Leukocyte Esterase (Negative) Urine WBC (Auto) (0-5) /hpf Urine RBC (Auto) (0-4) /hpf U Hyaline Cast (Auto) (0-5) /lpf U Epithel Cells (Auto) (0-5) /lpf Urine Bacteria (Auto) (Negative) Ur Renal Epithelial Cell (0-5) /lpf Urine Osmolality (500-800) mOsm/kg Urine Sodium mmol/L Urine Potassium mmol/L Urine Chloride mmol/L Urine Opiates Screen (Neg) Ur Methadone, Qual (Neg) Urine Barbiturates (Neg) Ur Phencyclidine (PCP) (Neg) U Amphetamin/Meth Scrn (Neg) MDMA (Ecstasy) Screen (Neg) U Benzodiazepines Scrn (Neg) Ur Cocaine Metabolite (Neg) U Marijuana (THC) Screen (Neg) Ethyl Alcohol mg/dL (<10.0) mg/dl SARS-CoV-2, RNA, NAAT (NEGATIVE) 07/11/22 07/11/22 07/11/22 Range/Units 21:26 22:00 22:00 WBC (4.8-10.8) K/ul RBC (4.70-6.10) M/uL Hgb (14.0-18.0) g/dl Hct (42.0-52.0) % MCV (80.0-100.0) fL MCH (25.0-34.0) pg MCHC (32.0-36.0) g/dL RDW Std Deviation (36.4-46.3) fL RDW Coeff of Arturo (11.5-14.5) % Plt Count (130-400) K/uL MPV (9.4-12.4) fL Immature Gran % (Auto) % Neut % (Auto) % Lymph % (Auto) % [place] % (Auto) % Eos % (Auto) % Baso % (Auto) % Neut # (Auto) (1.40-6.50) K/uL Lymph # (Auto) (1.2-3.4) K/uL [place] # (Auto) (0.11-0.59) K/uL Eos # (Auto) (0-0.50) K/uL Baso # (Auto) (0-0.2) K/uL Immature Gran # (Auto) (0.01-0.20) K/uL Sodium (136-145) mmol/L Potassium (3.5-5.1) mmol/L Chloride (98-107) mmol/L Carbon Dioxide (21-32) mmol/L Anion Gap (3-11) BUN (6-23) mg/dl Creatinine (0.6-1.4) mg/dl Est Cr Clr Drug Dosing Est GFR ( Amer) ml/min Est GFR (Non-Af Amer) ml/min BUN/Creatinine Ratio (10-20) Glucose (70-99(Fasting)) mg/dl Osmolality (280-300) mOsm/kg Calcium (8.6-10.3) mg/dl Magnesium (1.7-2.4) mg/dl Iron (35-175) mcg/dl TIBC (250-450) mcg/dl Unsaturated IBC (155-355) mcg/dl Transferrin % Sat (20-50) % Ferritin (8-388) ng/ml Total Bilirubin (0.2-1.0) mg/dl AST (13-39) U/L ALT (7-52) U/L Alkaline Phosphatase (34-104) U/L Total Protein (6.0-8.3) gm/dl Albumin (3.4-5.0) gm/dl Globulin (2.5-4.0) gm/dl Albumin/Globulin Ratio (0.9-2) Lipase (11-82) U/L Vitamin B12 (180-914) pg/ml Folate (>5.38) ng/ml Urine Color Yellow Urine Appearance Clear (Clear) Urine pH 7.5 (4.5-7.5) Ur Specific [place] 1.005 (1.000-1.030) Urine Protein Trace H (Negative) Urine Glucose (UA) Negative (Negative) Urine Ketones Negative (Negative) Urine Blood Negative (Negative) Urine Nitrite Negative (Negative) Urine Bilirubin Negative (Negative) Urine Urobilinogen Negative (Negative) Ur Leukocyte Esterase Negative (Negative) Urine WBC (Auto) 1-5 (0-5) /hpf Urine RBC (Auto) 0-4 (0-4) /hpf U Hyaline Cast (Auto) 0 (0-5) /lpf U Epithel Cells (Auto) 0-5 (0-5) /lpf Urine Bacteria (Auto) Negative (Negative) Ur Renal Epithelial Cell 0-5 (0-5) /lpf Urine Osmolality 134 L (500-800) mOsm/kg Urine Sodium mmol/L Urine Potassium mmol/L Urine Chloride mmol/L Urine Opiates Screen (Neg) Ur Methadone, Qual (Neg) Urine Barbiturates (Neg) Ur Phencyclidine (PCP) (Neg) U Amphetamin/Meth Scrn (Neg) MDMA (Ecstasy) Screen (Neg) U Benzodiazepines Scrn (Neg) Ur Cocaine Metabolite (Neg) U Marijuana (THC) Screen (Neg) Ethyl Alcohol mg/dL (<10.0) mg/dl SARS-CoV-2, RNA, NAAT NEGATIVE (NEGATIVE) 07/11/22 07/11/22 Range/Units 22:00 22:00 WBC (4.8-10.8) K/ul RBC (4.70-6.10) M/uL Hgb (14.0-18.0) g/dl Hct (42.0-52.0) % MCV (80.0-100.0) fL MCH (25.0-34.0) pg MCHC (32.0-36.0) g/dL RDW Std Deviation (36.4-46.3) fL RDW Coeff of Arturo (11.5-14.5) % Plt Count (130-400) K/uL MPV (9.4-12.4) fL Immature Gran % (Auto) % Neut % (Auto) % Lymph % (Auto) % [place] % (Auto) % Eos % (Auto) % Baso % (Auto) % Neut # (Auto) (1.40-6.50) K/uL Lymph # (Auto) (1.2-3.4) K/uL [place] # (Auto) (0.11-0.59) K/uL Eos # (Auto) (0-0.50) K/uL Baso # (Auto) (0-0.2) K/uL Immature Gran # (Auto) (0.01-0.20) K/uL Sodium (136-145) mmol/L Potassium (3.5-5.1) mmol/L Chloride (98-107) mmol/L Carbon Dioxide (21-32) mmol/L Anion Gap (3-11) BUN (6-23) mg/dl Creatinine (0.6-1.4) mg/dl Est Cr Clr Drug Dosing Est GFR ( Amer) ml/min Est GFR (Non-Af Amer) ml/min BUN/Creatinine Ratio (10-20) Glucose (70-99(Fasting)) mg/dl Osmolality (280-300) mOsm/kg Calcium (8.6-10.3) mg/dl Magnesium (1.7-2.4) mg/dl Iron (35-175) mcg/dl TIBC (250-450) mcg/dl Unsaturated IBC (155-355) mcg/dl Transferrin % Sat (20-50) % Ferritin (8-388) ng/ml Total Bilirubin (0.2-1.0) mg/dl AST (13-39) U/L ALT (7-52) U/L Alkaline Phosphatase (34-104) U/L Total Protein (6.0-8.3) gm/dl Albumin (3.4-5.0) gm/dl Globulin (2.5-4.0) gm/dl Albumin/Globulin Ratio (0.9-2) Lipase (11-82) U/L Vitamin B12 (180-914) pg/ml Folate (>5.38) ng/ml Urine Color Urine Appearance (Clear) Urine pH (4.5-7.5) Ur Specific [place] (1.000-1.030) Urine Protein (Negative) Urine Glucose (UA) (Negative) Urine Ketones (Negative) Urine Blood (Negative) Urine Nitrite (Negative) Urine Bilirubin (Negative) Urine Urobilinogen (Negative) Ur Leukocyte Esterase (Negative) Urine WBC (Auto) (0-5) /hpf Urine RBC (Auto) (0-4) /hpf U Hyaline Cast (Auto) (0-5) /lpf U Epithel Cells (Auto) (0-5) /lpf Urine Bacteria (Auto) (Negative) Ur Renal Epithelial Cell (0-5) /lpf Urine Osmolality (500-800) mOsm/kg Urine Sodium < 10 mmol/L Urine Potassium 5.6 mmol/L Urine Chloride < 15 mmol/L Urine Opiates Screen Neg (Neg) Ur Methadone, Qual Neg (Neg) Urine Barbiturates Neg (Neg) Ur Phencyclidine (PCP) Neg (Neg) U Amphetamin/Meth Scrn Neg (Neg) MDMA (Ecstasy) Screen Neg (Neg) U Benzodiazepines Scrn Neg (Neg) Ur Cocaine Metabolite Neg (Neg) U Marijuana (THC) Screen Neg (Neg) Ethyl Alcohol mg/dL (<10.0) mg/dl SARS-CoV-2, RNA, NAAT (NEGATIVE) Administered Medications Acetaminophen (Acetaminophen 325 Mg Tab) 650 mg PO Q4H PRN PRN Reason: Pain or Fever Stop: 08/11/22 00:59 Last Admin: 07/12/22 22:33 Dose: 650 mg Documented By: TERELL Buspirone HCl (Buspirone 5 Mg Tab) 5 mg PO BID SAMMY Stop: 08/11/22 08:59 Last Admin: 07/12/22 22:30 Dose: 5 mg Documented By: Admin: 07/12/22 08:30 Dose: 5 mg Documented By: Fluoxetine HCl (Fluoxetine Hcl 20 Mg Cap) 40 mg PO DAILY SAMMY Stop: 08/11/22 08:59 Last Admin: 07/12/22 08:29 Dose: 40 mg Documented By: Folic Acid (Folic Acid 1 Mg Tab) 1 mg PO DAILY SAMMY Stop: 08/11/22 08:59 Last Admin: 07/12/22 08:30 Dose: 1 mg Documented By: Potassium Chloride/Sodium Chloride (Normal Saline W/20 Meq Kcl) 20 meq in 1,000 mls @ 100 mls/hr IV .Q10H SAMMY; Protocol Stop: 08/11/22 03:59 Last Admin: 07/12/22 14:22 Dose: 100 mls/hr Documented By: Infusion: 07/12/22 14:18 Dose: 100 mls/hr Documented By: Admin: 07/12/22 04:18 Dose: 100 mls/hr Documented By: BRAD Magnesium Oxide (Magnesium Oxide 400 Mg Tab) 400 mg PO DAILY SAMMY Stop: 08/11/22 08:59 Last Admin: 07/12/22 08:29 Dose: 400 mg Documented By: Melatonin (Melatonin 3 Mg Tab) 12 mg PO HS [facility] Stop: 08/11/22 20:59 Last Admin: 07/12/22 22:30 Dose: 12 mg Documented By: TERELL Metoprolol Tartrate (Metoprolol Tartrate 25 Mg Tab) 25 mg PO BID SAMMY Stop: 08/11/22 08:59 Last Admin: 07/12/22 22:29 Dose: 25 mg Documented By: Admin: 07/12/22 08:28 Dose: 25 mg Documented By: Multivitamins (Multivitamin Tab) [facility] [place] Stop: 08/11/22 08:59 Last Admin: 07/12/22 08:29 Dose: 1 tab Documented By: Nicotine (Nicotine 21 Mg/24 Hr Tdsy) 21 mg TD [facility] Stop: 08/12/22 08:59 Last Admin: 07/12/22 22:25 Dose: 21 mg Documented By: TERELL Pantoprazole Sodium (Pantoprazole 40 Mg Tab) 40 mg PO DAILY SAMMY Stop: 08/11/22 08:59 Last Admin: 07/12/22 08:29 Dose: 40 mg Documented By: Thiamine HCl (Thiamine Hcl 100 Mg Tab) 100 [facility] [place] Stop: 08/11/22 08:59 Last Admin: 07/12/22 08:29 Dose: 100 mg Documented By: Discontinued Medications Acetaminophen (Acetaminophen 325 Mg Tab) 650 mg PO NOW STA Stop: 07/12/22 00:32 Last Admin: 07/12/22 00:59 Dose: 650 mg Documented By: BANDAR Buspirone HCl (Buspirone 5 Mg Tab) 5 mg PO NOW STA Stop: 07/12/22 00:32 Last Admin: 07/12/22 00:59 Dose: 5 mg Documented By: BANDAR Sodium Chloride (Nss) 500 mls @ 999 mls/hr IV .Q31M STA Stop: 07/11/22 20:31 Last Infusion: 07/11/22 21:01 Dose: 0 mls/hr Documented By: Admin: 07/11/22 20:25 Dose: 999 mls/hr Documented By: SCOOBY Calcium Gluconate () 1,000 mg in 60 mls @ 240 mls/hr IV NOW STA Stop: 07/11/22 23:05 Last Infusion: 07/12/22 00:05 Dose: 0 mls/hr Documented By: Admin: 07/11/22 23:50 Dose: 240 mls/hr Documented By: BANDAR Thiamine HCl 100 mg/ Folic (Acid 1 mg/ Sodium Chloride) 1,001.2 mls @ 500 mls/hr IV .Q2H1M STA; Protocol Stop: 07/12/22 02:55 Last Infusion: 07/12/22 04:23 Dose: 0 mls/hr Documented By: Admin: 07/12/22 02:00 Dose: 500 mls/hr Documented By: BANDAR Magnesium Sulfate/Dextrose (Magnesium Sulfate / D5w) 1 gm in 100 mls @ 50 mls/hr IV Q2H SAMMY Stop: 07/12/22 05:29 Last Infusion: 07/12/22 05:02 Dose: 0 mls/hr Documented By: Admin: 07/12/22 02:56 Dose: 50 mls/hr Documented By: Infusion: 07/12/22 02:53 Dose: 0 mls/hr Documented By: Admin: 07/12/22 02:00 Dose: 50 mls/hr Documented By: BANDAR Lorazepam (Lorazepam 1 Mg Tab) 1 mg PO ONE PRN; Protocol PRN Reason: EtoH Withdrawal AWSS 6,7,8,9,10 Last Admin: 07/12/22 12:54 Dose: 1 mg Documented By: Melatonin (Melatonin 3 Mg Tab) 3 mg PO NOW STA Stop: 07/12/22 00:32 Last Admin: 07/12/22 00:59 Dose: 3 mg Documented By: BANDAR Multivitamins/Minerals (Cerovite Adv Formula Tab) 1 tab PO NOW STA Stop: 07/11/22 21:19 Last Admin: 07/11/22 21:24 Dose: 1 tab Documented By: MARK Potassium Chloride (Potassium Chloride Crtab 20 Meq Tabcr) 40 meq PO NOW STA Stop: 07/11/22 21:18 Last Admin: 07/11/22 21:24 Dose: 40 meq Documented By: MARK Potassium Chloride (Potassium Chloride Crtab 20 Meq Tabcr) 40 meq PO NOW STA Stop: 07/12/22 01:22 Last Admin: 07/12/22 02:01 Dose: 40 meq Documented By: BANDAR Potassium Chloride (Potassium Chloride Crtab 20 Meq Tabcr) 20 meq PO Q2H SAMMY Stop: 07/12/22 14:01 Last Admin: 07/12/22 14:22 Dose: 20 meq Documented By: Admin: 07/12/22 12:58 Dose: 20 meq Documented By: Admin: 07/12/22 10:28 Dose: 20 meq Documented By: Admin: 07/12/22 08:30 Dose: 20 meq Documented By: AB Imaging Data Radiologist's Impression: Head CT 07/11/22 21:17 Exam(s): CT HEAD Without Contrast EXAM: CT Head Without Intravenous Contrast CLINICAL HISTORY: Reason for exam: amb dysfunction. TECHNIQUE: Axial computed tomography images of the head/brain without intravenous contrast. CTDI is 36.41 mGy and DLP is 614.27 mGy-cm. Automated exposure control was utilized for the study. A dose lowering technique was utilized adhering to the principles of ALARA. COMPARISON: Head CT 01/05/18 and MRI brain 03/26/18. FINDINGS: Brain: Mild atrophy is stable. No edema or acute infarct. No acute hemorrhage. Ventricles: No hydrocephalus or midline shift. Bones/joints: No skull fracture. Soft tissues: No scalp hematoma. Sinuses: Clear. Mastoid air cells: No mastoid effusion. IMPRESSION: 1. Mild atrophy, stable. 2. No acute infarct, bleed, or acute intracranial abnormality. Electronically signed by: Hyun Babb M.D. 07/11/22 22:13 PM Patient did have a head CT completed which shows some atrophy but no ICH. Discharge Plan Visit Data Chief Complaint: Weakness Stated Complaint: MALNUTRITION, DEHYDRATION, DIFFICULTY WALKING ED Provider: Mat Arias Discharge Problem: Hypokalemia, Anemia, Alcohol intoxication, Hyponatremia, Weakness, Ambulatory dysfunction Patient Disposition: Admitted As Inpatient Discharge Instructions Interventions: ED Discharge Assessment Last Done: 07/12/22 19:58
[2022-07-11] MEDS ORDERED: POTASSIUM CHLORIDE CRTAB 20 MEQ TABCR PO STA (21:17)
[2022-07-11] MEDS ORDERED: CEROVITE ADV FORMULA TAB PO STA (21:18)
[2022-07-11 21:49] LABS: Magnesium 1.7 mg/dl (1.7-2.4)
--- NOTE | 2022-07-11 22:14 | CT Scan Report ---
Exam(s): CT HEAD Without Contrast EXAM: CT Head Without Intravenous Contrast CLINICAL HISTORY: Reason for exam: amb dysfunction. TECHNIQUE: Axial computed tomography images of the head/brain without intravenous contrast. CTDI is 36.41 mGy and DLP is 614.27 mGy-cm. Automated exposure control was utilized for the study. A dose lowering technique was utilized adhering to the principles of ALARA. COMPARISON: Head CT 01/05/18 and MRI brain 03/26/18. FINDINGS: Brain: Mild atrophy is stable. No edema or acute infarct. No acute hemorrhage. Ventricles: No hydrocephalus or midline shift. Bones/joints: No skull fracture. Soft tissues: No scalp hematoma. Sinuses: Clear. Mastoid air cells: No mastoid effusion. IMPRESSION: 1. Mild atrophy, stable. 2. No acute infarct, bleed, or acute intracranial abnormality. Electronically signed by: Hyun Babb M.D. 07/11/22 22:13 PM
[2022-07-11 22:30] LABS: Appearance Urine Clear (Clear); Bilirubin Urine Negative (Negative); Blood Urine Negative (Negative); Color Urine Yellow; Glucose Urine UA Negative (Negative); Ketones Urine Negative (Negative); Leukocyte Esterase Urine Negative (Negative); Nitrite Urine Negative (Negative); Specific Gravity Urine 1.005 (1.000-1.030); Urobilinogen Urine Negative (Negative); pH Urine 7.5 (4.5-7.5)
[2022-07-11 22:32] LABS: Protein Urine Trace (Negative)
[2022-07-11 22:39] LABS: RBC Urine Automated 0-4 /hpf (0-4)
[2022-07-11 22:41] LABS: Bacteria Urine Automated Negative (Negative); Cast Urine Automated 0 /lpf (0-5); Epithelial Cell Urine Auto 0-5 /lpf (0-5); Renal Epithelial Cells Urine 0-5 /lpf (0-5)
[2022-07-11] MEDS ORDERED: CALCIUM GLUCONATE 1,000 MG/60 ML BAG IV STA (22:51)
[2022-07-11 22:59] LABS: Urine Chloride < 15 mmol/L; Urine Potassium 5.6 mmol/L; Urine Sodium < 10 mmol/L
[2022-07-11] MEDS ORDERED: LORazepam 2 MG/1 ML VIAL IV PRN ×4 (23:30)
[2022-07-11] MEDS ORDERED: Ativan IV Alcohol Withdrawal--Active Protocol IV PRN (23:30)
[2022-07-12 00:15] LABS: Iron 107 mcg/dl (35-175); Total Iron Binding Cap Calc 184 mcg/dl (250-450); Transferrin (FE) Percent Satur 58 % (20-50); Unsaturated Iron Binding Cap 77 mcg/dl (155-355)
[2022-07-12] MEDS ORDERED: busPIRone 5 MG TAB PO STA (00:31)
[2022-07-12] MEDS ORDERED: ACETAMINOPHEN 325 MG TAB PO STA (00:31)
[2022-07-12] MEDS ORDERED: MELATONIN 3 MG TAB PO STA (00:31)
[2022-07-12] MEDS ORDERED: THIAMINE HCL 100 MG, FOLIC ACID 1 MG in SODIUM CHLORIDE 0.9% 1000ML 1,000 ML IV STA (00:55)
[2022-07-12] MEDS ORDERED: POTASSIUM CHLORIDE CRTAB 20 MEQ TABCR PO STA (01:21)
[2022-07-12] MEDS ORDERED: LORazepam 1 MG TAB PO PRN ×2 (01:23→21:49)
--- NOTE | 2022-07-12 01:47 | History & Physical Report ---
Date of Service July 12, 2022 Assessment & Plan (1) Weakness: Plan: 51 yo male PMHx of anxiety/depression, alcohol abuse, pancreatitis, lumbar radiculopathy, and HTN presents with weakness. #Weakness #Alcohol abuse/withdrawal -progressively worsening weakness likely multifactorial due to poor oral intake, alcohol abuse, anemia, electrolyte abnormalities. -CT head: stable mild atrophy otherwise unremarkable -ethyl alcohol 295 -placed on AWSS at risk protocol -NSS 500ml bolus given in ED. Will give additional banana bag and 1L NSS + 20meq KCL at maintenance. -Thiamine and folic acid daily -electrolyte repletion as below #Hypokalemia -K 2.3 on admission. -given 40meq po in ED. Will give additional 40meq po + 20meq in IVF as above. -monitor on tele -recheck am #Hyponatremia -Na 132 on admission. Suspect hypovolemic hyponatremia -serum osmols 346, urine osmols 134, urine Na <10 -fluid replacement as above -recheck am #Anemia -Hgb 9.9 on admission. MCV 94. -B12 and folate wnl -iron studies pending -pt denies vomiting or signs of bleed. FOBT ordered. -will hold off on chemical DVT ppx. #Hepatic steatosis #Elevated LFTs -previous CT A/P (04/23/22) with hepatic steatosis likely 2/2 alcohol abuse. AST>ALT shows alcohol related pattern. Unclear why ALP elevated. -trend LFTs #HTN -cont. metoprolol -pt needs education to not take additional doses at home #Anxiety #Depression -cont. fluoxetine and buspar #GERD -cont. pantoprazole DVT ppx: SCDs FEN/GI: Regular Code Status: Full Dispo: PCU (2) Alcohol intoxication: (3) Alcohol abuse: (4) Anxiety: (5) Hypertension: (6) Lumbar radiculopathy: (7) Depression: (8) Hyponatremia: Admission and Anticipated Discharge Date Admission Date: July 12, 2022 History of Present Illness Chief Complaint: Weakness Primary Care Provider: Kvng Mcghee, MIGDALIA, [employer] 51 yo male PMHx of anxiety/depression, alcohol abuse, pancreatitis, lumbar radiculopathy, and HTN presents with weakness. Patient is a chronic alcohol abuser and has been drinking 6-8 seltzers a day for the last 2 months with poor oral intake. Since then he has had some exertional sob which resolves with rest. He has also been generally weak and felt the weakest today especially in his legs which prompted him to come to the ER. Denies headache, fever, chest pain, abd pain, N/V/D, constipation, dysuria, melena. No incontinence. He has been compliant with his meds. Sometimes when he feels overly anxious he will take an extra dose of metoprolol. States he only had one pill of metoprolol this morning. Of note, he was admitted a couple of months ago for acute pancreatitis likely secondary to alcohol use. Allergies Allergy/AdvReac Type Severity Reaction Status Date / Time No Known Allergies Allergy Verified 07/11/22 22:46 Home Medications Medication Instructions Recorded Confirmed Type multivitamin 1 tab PO DAILY 08/13/21 07/11/22 History buspirone 5 mg tablet 5 mg PO BID 04/23/22 07/11/22 History fluoxetine 40 mg capsule 40 mg PO DAILY #30 caps 06/01/22 07/11/22 Rx magnesium oxide 400 mg PO DAILY #30 caps 06/14/22 07/11/22 Rx thiamine HCl (vitamin B1) 100 mg 100 mg PO QAM #30 tabs 06/14/22 07/11/22 Rx tablet folic acid 1 mg tablet 1 mg PO DAILY 07/11/22 07/11/22 History melatonin 12 mg tablet 12 mg PO HS 07/11/22 07/11/22 History metoprolol tartrate 25 mg tablet 25 mg PO BID 07/11/22 07/11/22 History pantoprazole 40 mg tablet,delayed 40 mg PO DAILY 07/11/22 07/11/22 History release Past Med/Surg History Medical History Acute blood loss anemia Alcohol withdrawal 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 Chronic alcohol use GI bleed Hypertension Hypertensive urgency Left foot drop Metabolic acidosis Pancreatitis Sensory polyneuropathy Smokes 1 pack of cigarettes per day Surgical History No pertinent past surgical history Family History Other Adopted Social History Smoking Status: Heavy tobacco smoker Tobacco Type: Cigarettes packs per day: 1; Cigarettes Per Day: 1/2 pack; Second Hand Exposure: No; Do You Dip or Chew Tobacco: No; Hx Alcohol Use: Yes Alcohol type: hard liquor Alcohol Intake Frequency Comment: 1/2 to one 5th of vodka daily, some beer Hx Substance Use: No Preferred Language: Slovak Communication Ability: Effective Patient Care Technician Required: No Beliefs That Will Affect Care: None marital status: Single Current Living Situation: Alone current occupational status: previously employed current occupation: Recently lost job working in an [employer] service How many Children do You have: 0 Other Information That Helps Us Care for You: No Feels Safe at Home: Yes Safety Concerns: Feels Safe At This Time Assistive Devices: Glasses Review of Systems Review of Systems: All systems reviewed & are unremarkable except as noted in HPI & below Physical Exam Physical Exam: Constitutional: in no acute distress, pleasant, intact memory. AOx3. Vitals as above. HEENT: No scleral injection or discharge.Dry mucous membranes. Clear oropharynx without erythema/exudate. Pupils equal, L mildly sluggish compared to R. EOMI. Neck: Supple without lymphadenopathy or thyromegaly. Trachea midline. Lungs: Clear to auscultation bilaterally with good effort. Cardiac: Regular rate and rhythm. No murmurs. No extremity edema. 2+ distal peripheral pulses. Abdomen: Bowel sounds present. Soft and nondistended.Mild diffuse tenderness. No guarding. Neg murphys. No hepatosplenomegaly. MSK: No cyanosis or clubbing. Extremities motor strength 5/5. Skin: No rashes, warm, dry. Neurologic: no focal deficits Results & Data Results & Data Vital Signs (Past 12 Hours) Vital Signs Temp Pulse Pulse Resp BP BP Pulse Ox 07/12/22 01:00 07/12/22 01:00 62 18 112/57 L 96 07/12/22 00:40 65 07/12/22 00:00 65 20 98 07/12/22 00:00 98/63 L 07/11/22 23:48 69 18 92/71 L 100 07/11/22 22:34 77 16 96/69 L 99 07/11/22 22:05 69 16 100/67 97 07/11/22 21:00 69 16 92/59 L 100 07/11/22 20:36 72 07/11/22 19:55 72 16 92/61 L 100 07/11/22 19:58 36.9 C 87 18 88/64 L 96 Pulse Ox O2 Del Method O2 Del Method 07/12/22 01:00 96 Room Air 07/12/22 01:00 Room Air 07/12/22 00:40 07/12/22 00:00 Room Air 07/12/22 00:00 07/11/22 23:48 Room Air 07/11/22 22:34 Room Air 07/11/22 22:05 Room Air 07/11/22 21:00 Room Air 07/11/22 20:36 07/11/22 19:55 Room Air 07/11/22 19:58 Room Air Laboratory Results Laboratory Results WBC 5.97 K/ul (4.8-10.8) 07/11/22 20:12 RBC 2.78 M/uL (4.70-6.10) L 07/11/22 20:12 Hgb 9.9 g/dl (14.0-18.0) L 07/11/22 20:12 Hct 26.3 % (42.0-52.0) L 07/11/22 20:12 MCV 94.6 fL (80.0-100.0) 07/11/22 20:12 MCH 35.6 pg (25.0-34.0) H 07/11/22 20:12 MCHC 37.6 g/dL (32.0-36.0) H 07/11/22 20:12 RDW Std Deviation 57.1 fL (36.4-46.3) H 07/11/22 20:12 RDW Coeff of Arturo 16.7 % (11.5-14.5) H 07/11/22 20:12 Plt Count 236 K/uL (130-400) 07/11/22 20:12 MPV 9.7 fL (9.4-12.4) 07/11/22 20:12 Immature Gran % (Auto) 0.2 % 07/11/22 20:12 Neut % (Auto) 48.8 % 07/11/22 20:12 Lymph % (Auto) 36.2 % 07/11/22 20:12 Greer % (Auto) 12.1 % 07/11/22 20:12 Eos % (Auto) 2.0 % 07/11/22 20:12 Baso % (Auto) 0.7 % 07/11/22 20:12 Neut # (Auto) 2.92 K/uL (1.40-6.50) 07/11/22 20:12 Lymph # (Auto) 2.16 K/uL (1.2-3.4) 07/11/22 20:12 Greer # (Auto) 0.72 K/uL (0.11-0.59) H 07/11/22 20:12 Eos # (Auto) 0.12 K/uL (0-0.50) 07/11/22 20:12 Baso # (Auto) 0.04 K/uL (0-0.2) 07/11/22 20:12 Immature Gran # (Auto) 0.01 K/uL (0.01-0.20) 07/11/22 20:12 Sodium 132 mmol/L (136-145) L 07/11/22 20:12 Potassium 2.3 mmol/L (3.5-5.1) L* 07/11/22 20:12 Chloride 94 mmol/L (98-107) L 07/11/22 20:12 Carbon Dioxide 25 mmol/L (21-32) 07/11/22 20:12 Anion Gap 13 (3-11) H 07/11/22 20:12 BUN 5 mg/dl (6-23) L 07/11/22 20:12 Creatinine 0.79 mg/dl (0.6-1.4) 07/11/22 20:12 Est Cr Clr Drug Dosing Not Reportable 07/11/22 20:12 Est GFR ( Amer) 119.7 ml/min 07/11/22 20:12 Est GFR (Non-Af Amer) 103.2 ml/min 07/11/22 20:12 BUN/Creatinine Ratio 6.3 (10-20) L 07/11/22 20:12 Glucose 111 mg/dl (70-99(Fasting)) H 07/11/22 20:12 Osmolality 346 mOsm/kg (280-300) H 07/11/22 20:12 Calcium 7.8 mg/dl (8.6-10.3) L 07/11/22 20:12 Magnesium Cancelled 07/11/22 21:17 Iron 107 mcg/dl (35-175) 07/11/22 20:12 TIBC 184 mcg/dl (250-450) L 07/11/22 20:12 Unsaturated IBC 77 mcg/dl (155-355) L 07/11/22 20:12 Transferrin % Sat 58 % (20-50) H 07/11/22 20:12 Ferritin 1875.0 ng/ml (8-388) H 07/11/22 20:12 Total Bilirubin 0.9 mg/dl (0.2-1.0) 07/11/22 20:12 AST 127 U/L (13-39) H 07/11/22 20:12 ALT 43 U/L (7-52) 07/11/22 20:12 Alkaline Phosphatase 114 U/L (34-104) H 07/11/22 20:12 Total Protein 6.4 gm/dl (6.0-8.3) 07/11/22 20:12 Albumin 3.4 gm/dl (3.4-5.0) 07/11/22 20:12 Globulin 3.0 gm/dl (2.5-4.0) 07/11/22 20:12 Albumin/Globulin Ratio 1.1 (0.9-2) 07/11/22 20:12 Lipase 70 U/L (11-82) 07/11/22 20:12 Vitamin B12 632 pg/ml (180-914) 07/11/22 20:12 Folate 16.97 ng/ml (>5.38) 07/11/22 20:12 Urine Color Yellow 07/11/22 22:00 Urine Appearance Clear (Clear) 07/11/22 22:00 Urine pH 7.5 (4.5-7.5) 07/11/22 22:00 Ur Specific [place] 1.005 (1.000-1.030) 07/11/22 22:00 Urine Protein Trace (Negative) H 07/11/22 22:00 Urine Glucose (UA) Negative (Negative) 07/11/22 22:00 Urine Ketones Negative (Negative) 07/11/22 22:00 Urine Blood Negative (Negative) 07/11/22 22:00 Urine Nitrite Negative (Negative) 07/11/22 22:00 Urine Bilirubin Negative (Negative) 07/11/22 22:00 Urine Urobilinogen Negative (Negative) 07/11/22 22:00 Ur Leukocyte Esterase Negative (Negative) 07/11/22 22:00 Urine WBC (Auto) 1-5 /hpf (0-5) 07/11/22 22:00 Urine RBC (Auto) 0-4 /hpf (0-4) 07/11/22 22:00 U Hyaline Cast (Auto) 0 /lpf (0-5) 07/11/22 22:00 U Epithel Cells (Auto) 0-5 /lpf (0-5) 07/11/22 22:00 Urine Bacteria (Auto) Negative (Negative) 07/11/22 22:00 Ur Renal Epithelial Cell 0-5 /lpf (0-5) 07/11/22 22:00 Urine Osmolality 134 mOsm/kg (500-800) L 07/11/22 22:00 Urine Sodium < 10 mmol/L 07/11/22 22:00 Urine Potassium 5.6 mmol/L 07/11/22 22:00 Urine Chloride < 15 mmol/L 07/11/22 22:00 Ethyl Alcohol mg/dL 295.7 mg/dl (<10.0) H 07/11/22 20:12 SARS-CoV-2, RNA, NAAT NEGATIVE (NEGATIVE) 07/11/22 21:[address] 07/11/22 21:17 Exam(s): CT HEAD Without Contrast EXAM: CT Head Without Intravenous Contrast CLINICAL HISTORY: Reason for exam: amb dysfunction. TECHNIQUE: Axial computed tomography images of the head/brain without intravenous contrast. CTDI is 36.41 mGy and DLP is 614.27 mGy-cm. Automated exposure control was utilized for the study. A dose lowering technique was utilized adhering to the principles of ALARA. COMPARISON: Head CT 01/05/18 and MRI brain 03/26/18. FINDINGS: Brain: Mild atrophy is stable. No edema or acute infarct. No acute hemorrhage. Ventricles: No hydrocephalus or midline shift. Bones/joints: No skull fracture. Soft tissues: No scalp hematoma. Sinuses: Clear. Mastoid air cells: No mastoid effusion. IMPRESSION: 1. Mild atrophy, stable. 2. No acute infarct, bleed, or acute intracranial abnormality. Electronically signed by: Hyun Babb M.D. 07/11/22 22:13 PM Code Status & VTE Plan VTE Prophylaxis Plan VTE Prophylaxis will be ordered: Yes Supervising Physician Co-Signing Physician Notes Patient seen and examined, chart reviewed, case discussed with Dr. Nugetn and I agree with the assessment and plan as documented above. In brief, patient is a 51yo male with history of ongoing alcohol abuse, HTN and anxiety/depression presenting with diffuse generalized weakness. Patient reports bilateral leg weakness. He is drinking 6-8 hard seltzers daily. Has history of withdrawal symptoms before. On exam he is resting comfortably, NAD, VSS, no tremor or evidence of EtOH withdrawal. Blood pressure initially low at 88/64 on arrival which improved during the course of the ER stay. Skin - intact HEENT- Dry, Neck supple Heart - +S1/S2, regular, no m/r/g Lungs - CTA Abd - +BS, soft, NT/ND Ext - warm, well perfused Labs and images reviewed. Significant for worsening anemia - Hgb=9.9, Hct=26.3. Though normal MCV would consider microcytosis given that he has always had high MCV in the past. Hypokalemia with K=2.3. Mg is normal. Assessment/Plan: 51yo male with history of EtOH abuse presenting with diffuse generalized weakness, hypokalemia with K=2.3, worsening anemia -K repletion -Check FOBT -Closely monitor for EtOH withdrawal - placed on AWSS "At risk protocol" for now as no evidence of active withdrawal -Remainder of plan as above Resident Activity Tracking Resident Involvement: Resident Care Provided Care Provided: Adult Hospital Medicine (2) Alcohol intoxication Complication of substance-induced condition: uncomplicated Qualified Code(s): F10.920 - Alcohol use, unspecified with intoxication, uncomplicated
[2022-07-12 01:54] LABS: Amphetamines+Metham, Urine Neg (Neg); Barbiturates, Urine Neg (Neg); Benzodiazepine, Urine Neg (Neg); Cocaine, Urine Neg (Neg); MDMA (Ecstacy), Urine Neg (Neg); Methadone, Urine Neg (Neg); Opiate, Urine Neg (Neg); Phencyclidine, Urine Neg (Neg)
[2022-07-12] MEDS: MAGNESIUM SULFATE / D5W 1 GM/100 ML BAG IV SCH ×2 (02:00→02:56)
[2022-07-12] MEDS: NSS + 20MEQ KCL 20 MEQ/1,000 ML BAG IV SCH ×2 (04:18→14:22)
--- NOTE | 2022-07-12 06:46 | Hospitalist Progress Note ---
Date of Service July 12, 2022 Assessment & Plan (1) Weakness: Plan: 51 yo male PMHx of anxiety/depression, alcohol abuse, lumbar radiculopathy, and HTN presents with weakness. #Weakness #Alcohol abuse/withdrawal -progressively worsening weakness likely multifactorial due to poor oral intake, alcohol abuse, anemia, electrolyte abnormalities. -CT head: stable mild atrophy otherwise unremarkable -ethyl alcohol 295 at time of admission. Negative drug screen. -placed on AWSS at risk protocol. High risk of alcohol withdrawal symptoms. Intubation required during previous admissions. -NSS 500ml bolus given in ED. given additional banana bag and 1L NSS + 20meq KCL at maintenance. -Thiamine and folic acid daily #Hypokalemia/Hypomag -K 2.3 on admission. Magnesium at 1.7 admission. -Likely from AUD -Replete -Recheck BMP at 16:30. #Hyponatremia (resolved) -Na 132 on admission. Suspect hypovolemic hyponatremia -serum osmols 346, urine osmols 134, urine Na <10 -Resolved with fluid replacement. -Currently 142 this morning. #Anemia -Hgb 9.9 on admission. MCV 94. -B12 and folate wnl -iron studies showed normal iron, low TIBC, and high ferritin. -pt denies vomiting or signs of bleed. FOBT ordered. -will hold off on chemical DVT ppx. -Most likely anemia of chronic disease or related to alcohol abuse/liver injury. #Hepatic steatosis #Elevated LFTs -Previous CT A/P (04/23/22) with hepatic steatosis likely 2/2 alcohol abuse. AST>ALT shows alcohol related pattern. -ALP elevated most likely due to alcoholic liver disease. -trend LFTs and morning labs #HTN -Continue home metoprolol. #Anxiety #Depression -cont. fluoxetine and buspar #GERD -cont. pantoprazole DVT ppx: SCDs FEN/GI: Regular Code Status: Full Dispo: PCU (2) Alcohol intoxication: (3) Alcohol abuse: (4) Anxiety: (5) Hypertension: (6) Lumbar radiculopathy: (7) Depression: (8) Hyponatremia: Admission and Anticipated Discharge Date Admission Date: July 12, 2022 Supervising Physician Co-Signing Physician Notes Resident Physician Supervision Note: I independently interviewed and examined the patient and verified the kirk h istory and physical, reviewed labs and image studies and agree with resident findings and care plan. Subjective Patient was seen bedside this morning. With reviewing history patient states that he has been having difficult walking and shortness of breath for the past 2 months due to not eating. States that he has been having balance issues that he feels his strength has decreased in his legs. Does state that he had partial numbness and tingling in his lower extremities before. He also states that he has been short of breath on and off for the past 2 months and states that it is mainly due to him feeling fatigued. States that he last went through withdrawal in April when he had to be admitted to the hospital here. He currently smokes half a pack a day. He has tried AA and rehab in the past and continues to want to quit drinking at this time. Currently feels anxious. Review of Systems Review of Systems: All systems reviewed & are unremarkable except as noted in Subjective Physical Exam Constitutional: average body habitus; no acute distress Eyes: PERRL, conjunctivae normal, anicteric sclerae ENMT: external ear and nose normal, oropharynx normal Respiratory: normal respiratory effort, lungs clear to auscultation Cardiovascular: RRR, no murmur, no edema Gastrointestinal (Abdomen): normal bowel sounds, soft, nontender, no hepatosplenomegaly Musculoskeletal: no cyanosis or clubbing, extremities motor strength 5/5 Extremities: strength 5/5 throughout Skin: no rashes, warm and dry Neurologic: patellar DTR's 2+ bilat, sensation intact Psychiatric: Orientation: alert and oriented x 3 Mood: + depressed mood Results & Data Results & Data Vital Signs (Past 12 Hours) Vital Signs Temp Pulse Pulse Resp BP BP Pulse Ox 07/12/22 03:10 61 99/64 L 98 07/12/22 03:02 61 18 116/72 100 07/12/22 02:01 68 16 99/64 L 100 07/12/22 01:00 07/12/22 01:00 62 18 112/57 L 96 07/12/22 00:40 65 07/12/22 00:00 65 20 98 07/12/22 00:00 98/63 L 07/11/22 23:48 69 18 92/71 L 100 07/11/22 22:34 77 16 96/69 L 99 07/11/22 22:05 69 16 100/67 97 07/11/22 21:00 69 16 92/59 L 100 07/11/22 20:36 72 07/11/22 19:55 72 16 92/61 L 100 07/11/22 19:58 36.9 C 87 18 88/64 L 96 Pulse Ox O2 Del Method O2 Del Method 07/12/22 03:10 Room Air 07/12/22 03:02 Room Air 07/12/22 02:01 Room Air 07/12/22 01:00 96 Room Air 07/12/22 01:00 Room Air 07/12/22 00:40 07/12/22 00:00 Room Air 07/12/22 00:00 07/11/22 23:48 Room Air 07/11/22 22:34 Room Air 07/11/22 22:05 Room Air 07/11/22 21:00 Room Air 07/11/22 20:36 07/11/22 19:55 Room Air 07/11/22 19:58 Room Air Resident Activity Tracking Resident Involvement: Resident Care Provided Care Provided: Adult Hospital Medicine (2) Alcohol intoxication Complication of substance-induced condition: uncomplicated Qualified Code(s): F10.920 - Alcohol use, unspecified with intoxication, uncomplicated
[2022-07-12 07:54] LABS: Est GFR (African American) 135.9 ml/min; Est GFR (Non-African American) 117.2 ml/min
[2022-07-12 07:55] LABS: BUN Creatinine Ratio 8.6 (10-20); Creatinine Clr Calc Pharmacy 153.8 ml/min; Magnesium 2.1 mg/dl (1.7-2.4)
[2022-07-12] MEDS: METOPROLOL TARTRATE 25 MG TAB PO SCH ×2 (08:28→22:29)
[2022-07-12] MEDS: MULTIVITAMIN TAB PO SCH (08:29)
[2022-07-12] MEDS: THIAMINE HCL 100 MG TAB PO SCH (08:29)
[2022-07-12] MEDS: PANTOprazole 40 MG TAB PO SCH (08:29)
[2022-07-12] MEDS: FLUoxetine HCL 20 MG CAP PO SCH (08:29)
[2022-07-12] MEDS: MAGNESIUM OXIDE 400 MG TAB PO SCH (08:29)
[2022-07-12] MEDS: busPIRone 5 MG TAB PO SCH ×2 (08:30→22:30)
[2022-07-12] MEDS: POTASSIUM CHLORIDE CRTAB 20 MEQ TABCR PO SCH ×4 (08:30→14:22)
[2022-07-12] MEDS: FOLIC ACID 1 MG TAB PO SCH (08:30)
--- NOTE | 2022-07-12 10:08 | Electrocardiogram Report ---
Test Reason : Blood Pressure : / mmHG Vent. Rate : 079 BPM Atrial Rate : 079 BPM P-R Int : 156 ms QRS Dur : 114 ms QT Int : 376 ms P-R-T Axes : 016 002 039 degrees QTc Int : 431 ms Normal sinus rhythm Diffuse Nonspecific ST abnormality Abnormal ECG When compared with ECG of 23-APR-2022 17:51, Incomplete right bundle branch block is no longer Present Nonspecific ST abnormality now present Confirmed by Luis A Loza ([id number]) on 07/12/2022 10:07:49 AM Referred By: REFERRED SELF Confirmed By:Luis A Loza
[2022-07-12 17:17] LABS: BUN Creatinine Ratio 10.3 (10-20); Calcium 7.4 mg/dl (8.6-10.3); Creatinine Clr Calc Pharmacy 153.8 ml/min; Est GFR (African American) 135.9 ml/min; Est GFR (Non-African American) 117.2 ml/min; Potassium 4.3 mmol/L (3.5-5.1)
[2022-07-12] MEDS: NICOTINE 21 MG/24 HR TDSY TD SCH (22:25)
[2022-07-12] MEDS: MELATONIN 3 MG TAB PO SCH (22:30)
[2022-07-12] MEDS: ACETAMINOPHEN 325 MG TAB PO PRN (22:33)
--- NOTE | 2022-07-12 23:55 | Billing Data ---
Date of Service July 12, 2022 Coding Level of Care Code 64348 INT INP/OBS CARE
[2022-07-13] MEDS: NSS + 20MEQ KCL 20 MEQ/1,000 ML BAG IV SCH ×2 (00:02→10:22)
[2022-07-13] MEDS ORDERED: LORazepam 1 MG TAB PO PRN (00:41)
--- NOTE | 2022-07-13 06:49 | Hospitalist Progress Note ---
Date of Service July 13, 2022 Assessment & Plan (1) Weakness: Plan: 51 yo male PMHx of anxiety/depression, alcohol abuse, lumbar radiculopathy, and HTN presents with weakness. #Weakness #Alcohol abuse/withdrawal -progressively worsening weakness likely multifactorial due to poor oral intake, AUD, anemia, electrolyte abnormalities. -CT head: stable mild atrophy otherwise unremarkable -ethyl alcohol 295 at time of admission. Negative drug screen. -placed on AWSS at risk protocol. -Thiamine and folic acid daily -Consulted behavioral health liaison for resources for outpatient/inpatient rehab. Patient has failed rehab in the past as well as naltrexone. -Will consult PT/OT. #Hypokalemia/Hypomag -Likely from AUD -Potassium normal on 07/13. Magnesium 1.5 on 07/13 -We will increase mag oxide to twice daily and continue to trend BMP and mag in the a.m. #Hyponatremia (resolved) #Anemia -Hgb 9.9 on admission. MCV 94. Currently 8.4. -B12 and folate wnl -iron studies showed normal iron, low TIBC, and high ferritin. -pt denies vomiting or signs of bleed. FOBT ordered. -avoiding chemical DVT ppx. -Most likely anemia of chronic disease or related to alcohol abuse/liver injury. #Hepatic steatosis #Elevated LFTs -Previous CT A/P (04/23/22) with hepatic steatosis likely 2/2 alcohol abuse. AST>ALT shows alcohol related pattern. -ALP elevated most likely due to alcoholic liver disease. -trend LFTs and morning labs #HTN -Continue home metoprolol. #Anxiety #Depression -cont. fluoxetine and buspar -Should follow-up as an outpatient to address underlying anxiety and depression being the cause of patient's alcoholism. -We will try to set him up with outpatient counseling. #GERD -cont. pantoprazole DVT ppx: SCDs FEN/GI: Regular Code Status: Full Dispo: PCU (2) Alcohol intoxication: (3) Alcohol abuse: (4) Anxiety: (5) Hypertension: (6) Lumbar radiculopathy: (7) Depression: (8) Hyponatremia: Admission and Anticipated Discharge Date Admission Date: July 12, 2022 Supervising Physician Co-Signing Physician Notes Resident Physician Supervision Note: I independently interviewed and examined the patient and verified the kirk history and physical, reviewed labs and image studies and agree with resident findings and care plan. Subjective Patient was seen bedside this morning. Reports that he has felt little anxious and has been having a tremor. Also states that he continues to have trouble with walking but has been able to get up and out of bed and to the bathroom at this time. Review of Systems Review of Systems: All systems reviewed & are unremarkable except as noted in Subjective Physical Exam Constitutional: comfortable; no acute distress Eyes: PERRL, conjunctivae normal, anicteric sclerae Respiratory: normal respiratory effort, lungs clear to auscultation Cardiovascular: RRR, no murmur, no edema Gastrointestinal (Abdomen): normal bowel sounds, soft, nontender, no hepatosplenomegaly Musculoskeletal: no cyanosis or clubbing, extremities motor strength 5/5 Extremities: strength 5/5 throughout Skin: no rashes, warm and dry Neurologic: patellar DTR's 2+ bilat, sensation intact Psychiatric: Orientation: alert and oriented x 3 Mood: + depressed mood Results & Data Results & Data Vital Signs (Past 12 Hours) Vital Signs Temp Pulse Pulse Resp BP BP Pulse Ox 07/13/22 01:00 07/12/22 23:21 78 07/12/22 20:31 79 07/12/22 22:37 36.6 C 80 18 125/84 98 07/12/22 19:00 75 21 98 07/12/22 19:00 117/83 07/12/22 18:50 72 23 98 O2 Del Method O2 Del Method 07/13/22 01:00 Room Air 07/12/22 23:21 07/12/22 20:31 07/12/22 22:37 Room Air 07/12/22 19:00 07/12/22 19:00 07/12/22 18:50 Resident Activity Tracking Resident Involvement: Resident Care Provided Care Provided: Adult Hospital Medicine (2) Alcohol intoxication Complication of substance-induced condition: uncomplicated Qualified Code(s): F10.920 - Alcohol use, unspecified with intoxication, uncomplicated
[2022-07-13 08:22] LABS: Basophils # (auto) 0.03 K/uL (0-0.2); Basophils % (auto) 0.6 %; Eosinophils # (auto) 0.16 K/uL (0-0.50); Eosinophils % (auto) 3.4 %; Hematocrit (blood only) 23.9 % (42.0-52.0); Hemoglobin 8.4 g/dl (14.0-18.0); Immature Granulocytes # (auto) 0.01 K/uL (0.01-0.20); Immature Granulocytes % (auto) 0.2 %; Lymphocytes # (auto) 1.21 K/uL (1.2-3.4); Lymphocytes % (auto) 25.7 %; Mean Corpuscular Hemoglobin 35.4 pg (25.0-34.0); Mean Corpuscular Hgb Conc 35.1 g/dL (32.0-36.0); Mean Corpuscular Volume 100.8 fL (80.0-100.0); Mean Platelet Volume 10.2 fL (9.4-12.4); Monocytes # (auto) 0.55 K/uL (0.11-0.59); Monocytes % (auto) 11.7 %; Neutrophils # (auto) 2.75 K/uL (1.40-6.50); Neutrophils % (auto) 58.4 %; Platelet Count 188 K/uL (130-400); RDW Coefficient of Variation 18.7 % (11.5-14.5); RDW Standard Deviation 68.3 fL (36.4-46.3); Red Blood Count 2.37 M/uL (4.70-6.10); White Blood Count 4.71 K/ul (4.8-10.8)
[2022-07-13] MEDS: METOPROLOL TARTRATE 25 MG TAB PO SCH ×2 (08:36→21:38)
[2022-07-13] MEDS: MULTIVITAMIN TAB PO SCH (08:37)
[2022-07-13] MEDS: THIAMINE HCL 100 MG TAB PO SCH (08:37)
[2022-07-13] MEDS: FOLIC ACID 1 MG TAB PO SCH (08:37)
[2022-07-13] MEDS: MAGNESIUM OXIDE 400 MG TAB PO SCH ×2 (08:37→21:39)
[2022-07-13] MEDS: busPIRone 5 MG TAB PO SCH ×2 (08:37→21:39)
[2022-07-13] MEDS: PANTOprazole 40 MG TAB PO SCH (08:37)
[2022-07-13] MEDS: FLUoxetine HCL 20 MG CAP PO SCH (08:37)
[2022-07-13 08:54] LABS: Albumin Level 2.6 gm/dl (3.4-5.0); BUN Creatinine Ratio 10.2 (10-20); Bilirubin,Total 0.8 mg/dl (0.2-1.0); Calcium 6.9 mg/dl (8.6-10.3); Creatinine Clr Calc Pharmacy 182.1 ml/min; Est GFR (African American) 145.6 ml/min; Est GFR (Non-African American) 125.6 ml/min; Globulin 2.5 gm/dl (2.5-4.0); Magnesium 1.5 mg/dl (1.7-2.4); Potassium 3.9 mmol/L (3.5-5.1); Total Protein 5.1 gm/dl (6.0-8.3)
[2022-07-13] MEDS: ACETAMINOPHEN 325 MG TAB PO PRN (16:50)
[2022-07-13] MEDS ORDERED: LORazepam 0.5 MG TAB PO STA (18:07)
[2022-07-13] MEDS ORDERED: Nursing to Pharmacy Communication SCH (21:15)
[2022-07-13] MEDS: MELATONIN 3 MG TAB PO SCH (21:38)
[2022-07-13] MEDS: NICOTINE 21 MG/24 HR TDSY TD SCH (21:54)
[2022-07-14 06:02] LABS: Basophils # (auto) 0.04 K/uL (0-0.2); Basophils % (auto) 0.7 %; Eosinophils # (auto) 0.16 K/uL (0-0.50); Eosinophils % (auto) 2.7 %; Hematocrit (blood only) 24.7 % (42.0-52.0); Hemoglobin 8.8 g/dl (14.0-18.0); Immature Granulocytes # (auto) 0.02 K/uL (0.01-0.20); Immature Granulocytes % (auto) 0.3 %; Lymphocytes # (auto) 1.66 K/uL (1.2-3.4); Lymphocytes % (auto) 28.1 %; Mean Corpuscular Hemoglobin 35.1 pg (25.0-34.0); Mean Corpuscular Hgb Conc 35.6 g/dL (32.0-36.0); Mean Corpuscular Volume 98.4 fL (80.0-100.0); Monocytes # (auto) 0.48 K/uL (0.11-0.59); Monocytes % (auto) 8.1 %; Neutrophils # (auto) 3.54 K/uL (1.40-6.50); Neutrophils % (auto) 60.1 %; Platelet Count 186 K/uL (130-400); RDW Coefficient of Variation 19.4 % (11.5-14.5); RDW Standard Deviation 68.7 fL (36.4-46.3); Red Blood Count 2.51 M/uL (4.70-6.10)
[2022-07-14 06:30] LABS: Alanine Aminotransferase 29 U/L (7-52); Albumin Level 2.7 gm/dl (3.4-5.0); Alkaline Phosphatase 95 U/L (34-104); Anion Gap 4 (3-11); BUN Creatinine Ratio 7.3 (10-20); Bilirubin,Total 0.8 mg/dl (0.2-1.0); Blood Urea Nitrogen 3 mg/dl (6-23); Carbon Dioxide 26 mmol/L (21-32); Chloride 110 mmol/L (98-107); Creatinine Clr Calc Pharmacy 217.6 ml/min; Est GFR (African American) > 150.0 ml/min; Est GFR (Non-African American) 135.2 ml/min; Globulin 2.6 gm/dl (2.5-4.0); Glucose 97 mg/dl (70-99(Fasting)); Magnesium 1.2 mg/dl (1.7-2.4); Sodium 140 mmol/L (136-145); Total Protein 5.3 gm/dl (6.0-8.3)
[2022-07-14 07:49] LABS: Potassium 3.8 mmol/L (3.5-5.1)
--- NOTE | 2022-07-14 08:01 | Hospitalist Progress Note ---
Date of Service July 14, 2022 Assessment & Plan (1) Weakness: Plan: 51 yo male PMHx of anxiety/depression, alcohol abuse, lumbar radiculopathy, and HTN presents with weakness. #Weakness #Alcohol abuse/withdrawal -progressively worsening weakness likely multifactorial due to poor oral intake, AUD, anemia, electrolyte abnormalities. -CT head: stable mild atrophy otherwise unremarkable -ethyl alcohol 295 at time of admission. Negative drug screen. -placed on AWSS at risk protocol. -Thiamine and folic acid daily -Consulted behavioral health liaison for resources for outpatient/inpatient rehab. Patient has failed rehab in the past. -Patient has used naltrexone in the past which seemed to help a little. Will consider adding on prior to discharge. -Patient will see PT/OT today. Appreciate recommendations. #Nausea Will consider adding on Zofran once magnesium is stabilized. #Hypokalemia/Hypomag -Likely from AUD -Potassium normal on 07/13. -Magnesium of 1.2 on 07/14. We will stop p.o. mag oxide and switch to IV mag repletion. We will give 4 bags and recheck mag in the afternoon. #Hyponatremia (resolved) #Anemia -Hgb 9.9 on admission. MCV 94. Currently 8.4. -B12 and folate wnl -iron studies showed normal iron, low TIBC, and high ferritin. -pt denies vomiting or signs of bleed. FOBT ordered. -avoiding chemical DVT ppx. -Most likely anemia of chronic disease or related to alcohol abuse/liver injury. -We will add on hemochromatosis labs. #Hepatic steatosis #Elevated LFTs -Previous CT A/P (04/23/22) with hepatic steatosis likely 2/2 alcohol abuse. AST>ALT shows alcohol related pattern. -ALP elevated most likely due to alcoholic liver disease. -trend LFTs and morning labs #HTN -Continue home metoprolol. #Anxiety #Depression -cont. fluoxetine and buspar -Should follow-up as an outpatient to address underlying anxiety and depression being the cause of patient's alcoholism. -We will try to set him up with outpatient counseling. #GERD -cont. pantoprazole DVT ppx: SCDs FEN/GI: Regular Code Status: Full Dispo: PCU, waiting patient to see PT OT, awaiting outpatient to decide on rehab facilities. (2) Alcohol intoxication: (3) Alcohol abuse: (4) Anxiety: (5) Hypertension: (6) Lumbar radiculopathy: (7) Depression: (8) Hyponatremia: (9) Nausea: Admission and Anticipated Discharge Date Admission Date: July 12, 2022 Supervising Physician Co-Signing Physician Notes Resident Physician Supervision Note: I independently interviewed and examined the patient and verified the kirk history and physical, reviewed labs and image studies and agree with resident findings and care plan. Subjective Patient was seen bedside this morning. States that he has been having abdominal pain and lower back pain as well as a decrease in appetite. He also states that he is have some nausea and shortness of breath when he walks to and from the toilet. He also states that he is anxious at this time. He also states that he feels lightheaded from time to time. He states that he has not made a decision yet on which type of rehab he prefers. He still is considering inpatient rehab. Reviewing previous history patient says naltrexone helped a little bit in the past and does not remember why he stopped taking it. Review of Systems Review of Systems: All systems reviewed & are unremarkable except as noted in Subjective Physical Exam Constitutional: comfortable; no acute distress Eyes: PERRL, conjunctivae normal, anicteric sclerae Respiratory: normal respiratory effort, lungs clear to auscultation Cardiovascular: RRR, no murmur, no edema Gastrointestinal (Abdomen): normal bowel sounds, soft, nontender, no hepatosplenomegaly Musculoskeletal: no cyanosis or clubbing, extremities motor strength 5/5 Skin: no rashes, warm and dry Neurologic: patellar DTR's 2+ bilat, sensation intact Psychiatric: Orientation: alert and oriented x 3 Mood: + anxious mood Results & Data Results & Data Vital Signs (Past 12 Hours) Vital Signs Temp Pulse Pulse Resp BP Pulse Ox O2 Del Method 07/14/22 07:13 36.7 C 91 H 19 133/96 99 Room Air 07/14/22 02:57 36.8 C 81 20 117/84 94 Room Air 07/14/22 01:00 07/13/22 23:51 36.7 C 80 14 123/88 98 Room Air 07/13/22 23:51 36.7 C 106 H 20 105/64 98 Room Air O2 Del Method 07/14/22 07:13 07/14/22 02:57 07/14/22 01:00 Room Air 07/13/22 23:51 07/13/22 23:51 Resident Activity Tracking Resident Involvement: Resident Care Provided Care Provided: Adult Hospital Medicine (2) Alcohol intoxication Complication of substance-induced condition: uncomplicated Qualified Code(s): F10.920 - Alcohol use, unspecified with intoxication, uncomplicated
[2022-07-14] MEDS: MAGNESIUM SULFATE / D5W 1 GM/100 ML BAG IV SCH ×4 (08:56→14:48)
[2022-07-14] MEDS: PANTOprazole 40 MG TAB PO SCH (08:59)
[2022-07-14] MEDS: FLUoxetine HCL 20 MG CAP PO SCH (08:59)
[2022-07-14] MEDS: METOPROLOL TARTRATE 25 MG TAB PO SCH ×2 (08:59→20:34)
[2022-07-14] MEDS: FOLIC ACID 1 MG TAB PO SCH (09:00)
[2022-07-14] MEDS: MULTIVITAMIN TAB PO SCH (09:00)
[2022-07-14] MEDS: busPIRone 5 MG TAB PO SCH ×2 (09:00→20:34)
[2022-07-14] MEDS: NICOTINE 21 MG/24 HR TDSY TD SCH (09:01)
[2022-07-14] MEDS: THIAMINE HCL 100 MG TAB PO SCH (09:01)
[2022-07-14] MEDS: MELATONIN 3 MG TAB PO SCH (20:33)
[2022-07-14] MEDS: ACETAMINOPHEN 325 MG TAB PO PRN (20:39)
--- NOTE | 2022-07-15 06:47 | Hospitalist Progress Note ---
Date of Service July 15, 2022 Assessment & Plan (1) Weakness: Plan: 51 yo male PMHx of anxiety/depression, alcohol abuse, lumbar radiculopathy, and HTN presents with weakness. #Weakness #Alcohol abuse/withdrawal -progressively worsening weakness likely multifactorial due to poor oral intake, AUD, anemia, electrolyte abnormalities. -CT head: stable mild atrophy otherwise unremarkable -ethyl alcohol 295 at time of admission. Negative drug screen. -placed on AWSS at risk protocol. -Thiamine and folic acid daily -Consulted behavioral health liaison for resources for outpatient/inpatient rehab. Patient has failed rehab in the past. -Patient has used naltrexone in the past which seemed to help a little. Will consider adding on prior to discharge. -Patient will see PT/OT today. Appreciate recommendations. #Nausea Will consider adding on Zofran once magnesium is stabilized. #Hypokalemia/Hypomag -Likely from AUD -Potassium normal on 07/13. -Magnesium of 1.2 on 07/14. We will stop p.o. mag oxide and switch to IV mag repletion. We will give 4 bags and recheck mag in the afternoon. #Hyponatremia (resolved) #Anemia -Hgb 9.9 on admission. MCV 94. Currently 8.4. -B12 and folate wnl -iron studies showed normal iron, low TIBC, and high ferritin. -pt denies vomiting or signs of bleed. FOBT ordered. -avoiding chemical DVT ppx. -Most likely anemia of chronic disease or related to alcohol abuse/liver injury. -We will add on hemochromatosis labs. #Hepatic steatosis #Elevated LFTs -Previous CT A/P (04/23/22) with hepatic steatosis likely 2/2 alcohol abuse. AST>ALT shows alcohol related pattern. -ALP elevated most likely due to alcoholic liver disease. -trend LFTs and morning labs #HTN -Continue home metoprolol. #Anxiety #Depression -cont. fluoxetine and buspar -Should follow-up as an outpatient to address underlying anxiety and depression being the cause of patient's alcoholism. -We will try to set him up with outpatient counseling. #GERD -cont. pantoprazole DVT ppx: SCDs FEN/GI: Regular Code Status: Full Dispo: PCU, waiting patient to see PT OT, awaiting outpatient to decide on rehab facilities. (2) Alcohol intoxication: (3) Alcohol abuse: (4) Anxiety: (5) Hypertension: (6) Lumbar radiculopathy: (7) Depression: (8) Hyponatremia: (9) Nausea: Admission and Anticipated Discharge Date Admission Date: July 12, 2022 Results & Data Results & Data Vital Signs (Past 12 Hours) Vital Signs Temp Pulse Pulse Pulse Resp BP Pulse Ox 07/15/22 03:20 36.6 C 77 12 104/77 100 07/15/22 01:28 76 07/15/22 00:37 07/14/22 23:10 36.8 C 74 14 101/68 99 07/14/22 19:35 36.6 C 87 18 105/70 100 O2 Del Method O2 Del Method 07/15/22 03:20 Room Air 07/15/22 01:28 07/15/22 00:37 Room Air 07/14/22 23:10 Room Air 07/14/22 19:35 Room Air (2) Alcohol intoxication Complication of substance-induced condition: uncomplicated Qualified Code(s): F10.920 - Alcohol use, unspecified with intoxication, uncomplicated
[2022-07-15 07:19] LABS: Basophils # (auto) 0.02 K/uL (0-0.2); Basophils % (auto) 0.4 %; Eosinophils # (auto) 0.17 K/uL (0-0.50); Eosinophils % (auto) 3.1 %; Hematocrit (blood only) 24.1 % (42.0-52.0); Hemoglobin 8.7 g/dl (14.0-18.0); Immature Granulocytes # (auto) 0.02 K/uL (0.01-0.20); Immature Granulocytes % (auto) 0.4 %; Lymphocytes # (auto) 1.15 K/uL (1.2-3.4); Mean Corpuscular Hgb Conc 36.1 g/dL (32.0-36.0); Mean Corpuscular Volume 99.6 fL (80.0-100.0); Mean Platelet Volume 10.1 fL (9.4-12.4); Monocytes # (auto) 0.35 K/uL (0.11-0.59); Monocytes % (auto) 6.4 %; Neutrophils # (auto) 3.76 K/uL (1.40-6.50); Neutrophils % (auto) 68.7 %; Platelet Count 170 K/uL (130-400); RDW Coefficient of Variation 19.2 % (11.5-14.5); RDW Standard Deviation 69.1 fL (36.4-46.3); Red Blood Count 2.42 M/uL (4.70-6.10); White Blood Count 5.47 K/ul (4.8-10.8)
[2022-07-15 07:36] LABS: Alanine Aminotransferase 25 U/L (7-52); Albumin Globulin Ratio 1.1 (0.9-2); Albumin Level 2.6 gm/dl (3.4-5.0); Alkaline Phosphatase 96 U/L (34-104); Anion Gap 5 (3-11); Aspartate Aminotransferase 43 U/L (13-39); BUN Creatinine Ratio 9.8 (10-20); Bilirubin,Total 0.8 mg/dl (0.2-1.0); Blood Urea Nitrogen 4 mg/dl (6-23); Carbon Dioxide 23 mmol/L (21-32); Chloride 110 mmol/L (98-107); Creatinine Clr Calc Pharmacy 217.6 ml/min; Est GFR (African American) > 150.0 ml/min; Est GFR (Non-African American) 135.2 ml/min; Globulin 2.4 gm/dl (2.5-4.0); Glucose 101 mg/dl (70-99(Fasting)); Potassium 3.8 mmol/L (3.5-5.1); Sodium 138 mmol/L (136-145)
[2022-07-15] MEDS: METOPROLOL TARTRATE 25 MG TAB PO SCH (08:45)
[2022-07-15] MEDS: busPIRone 5 MG TAB PO SCH (08:45)
[2022-07-15] MEDS: THIAMINE HCL 100 MG TAB PO SCH (08:46)
[2022-07-15] MEDS: MULTIVITAMIN TAB PO SCH (08:46)
[2022-07-15] MEDS: FOLIC ACID 1 MG TAB PO SCH (08:46)
[2022-07-15] MEDS: FLUoxetine HCL 20 MG CAP PO SCH (08:46)
[2022-07-15] MEDS: PANTOprazole 40 MG TAB PO SCH (08:46)
[2022-07-15] MEDS: NICOTINE 21 MG/24 HR TDSY TD SCH (08:46)
[2022-07-15] MEDS: MAGNESIUM OXIDE 400 MG TAB PO SCH (10:10)
--- NOTE | 2022-07-15 15:40 | Discharge Summary ---
Date of Service July 15, 2022 Admission HPI Per Admitting Provider 51 yo male PMHx of anxiety/depression, alcohol abuse, pancreatitis, lumbar radiculopathy, and HTN presents with weakness. Patient is a chronic alcohol abuser and has been drinking 6-8 seltzers a day for the last 2 months with poor oral intake. Since then he has had some exertional sob which resolves with rest. He has also been generally weak and felt the weakest today especially in his legs which prompted him to come to the ER. Denies headache, fever, chest pain, abd pain, N/V/D, constipation, dysuria, melena. No incontinence. He has been compliant with his meds. Sometimes when he feels overly anxious he will take an extra dose of metoprolol. States he only had one pill of metoprolol this morning. Of note, he was admitted a couple of months ago for acute pancreatitis likely secondary to alcohol use. Admission Exam Per Admitting Provider Constitutional: in no acute distress, pleasant, intact memory. AOx3. Vitals as above. HEENT: No scleral injection or discharge.Dry mucous membranes. Clear oropharynx without erythema/exudate. Pupils equal, L mildly sluggish compared to R. EOMI. Neck: Supple without lymphadenopathy or thyromegaly. Trachea midline. Lungs: Clear to auscultation bilaterally with good effort. Cardiac: Regular rate and rhythm. No murmurs. No extremity edema. 2+ distal peripheral pulses. Abdomen: Bowel sounds present. Soft and nondistended.Mild diffuse tenderness. No guarding. Neg murphys. No hepatosplenomegaly. MSK: No cyanosis or clubbing. Extremities motor strength 5/5. Skin: No rashes, warm, dry. Neurologic: no focal deficits Principal Diagnosis Alcohol withdrawal Discharge Exam Constitutional: well-appearing, no acute distress HEENT: NCAT, no conjunctival injection CV: regular rhythm, no murmur appreciated, extremities well-perfused, no LE edema Resp: CTABL, no wheezes/rales/rhonchi appreciated, no increased work of breathing GI: soft, nondistended, nontender, BS normoactive MSK: no gross deformities appreciated, walker with ambulation Skin: warm, dry, no rash appreciated Neuro: alert, oriented, no focal neurologic deficit appreciated Discharge Data Allergies Allergy/AdvReac Type Severity Reaction Status Date / Time No Known Allergies Allergy Verified 07/11/22 22:46 Consultations 07/11/22 22:51 ED Decision to Admit Stat 07/13/22 11:05 Consult Behavioral Health Liaison Routine Ordered Studies Head CT 07/11/22 21:17 Exam(s): CT HEAD Without Contrast EXAM: CT Head Without Intravenous Contrast CLINICAL HISTORY: Reason for exam: amb dysfunction. TECHNIQUE: Axial computed tomography images of the head/brain without intravenous contrast. CTDI is 36.41 mGy and DLP is 614.27 mGy-cm. Automated exposure control was utilized for the study. A dose lowering technique was utilized adhering to the principles of ALARA. COMPARISON: Head CT 01/05/18 and MRI brain 03/26/18. FINDINGS: Brain: Mild atrophy is stable. No edema or acute infarct. No acute hemorrhage. Ventricles: No hydrocephalus or midline shift. Bones/joints: No skull fracture. Soft tissues: No scalp hematoma. Sinuses: Clear. Mastoid air cells: No mastoid effusion. IMPRESSION: 1. Mild atrophy, stable. 2. No acute infarct, bleed, or acute intracranial abnormality. Electronically signed by: Hyun Babb M.D. 07/11/22 22:13 PM 07/11/22 21:17 CT head/brain wo con Stat Hospital Course (1) Weakness: (2) Alcohol intoxication: (3) Alcohol abuse: (4) Anxiety: (5) Hypertension: (6) Lumbar radiculopathy: (7) Depression: (8) Hyponatremia: (9) Nausea: Plan 51 yo male PMHx of anxiety/depression, alcohol abuse, lumbar radiculopathy, and HTN presents with weakness. #Weakness #Alcohol abuse/withdrawal -progressively worsening weakness likely multifactorial due to poor oral intake, AUD, anemia, electrolyte abnormalities. -CT head: stable mild atrophy otherwise unremarkable -ethyl alcohol 295 at time of admission. Negative drug screen. -placed on AWSS at risk protocol. -Thiamine and folic acid daily -Consulted behavioral health liaison for resources for outpatient/inpatient rehab. Patient did not wish to have outpatient or inpatient rehab at time of discharge. -Patient has used naltrexone in the past which seemed to help a little. He will follow-up with PCP about restarting. -PT/OT saw patient and stated patient would benefit from continue physical therapy. -Patient should be using a walker at home until he is able to get in and see PT. -Follow-up with PCP within 1 week. #Anemia -Hgb 9.9 on admission. MCV 94. Currently 8.7 at time of discharge. -B12 and folate wnl -iron studies showed normal iron, low TIBC, and high ferritin. -pt denies vomiting or signs of bleed. -Most likely anemia of chronic disease or related to alcohol abuse/liver injury. -Hereditary hemochromatosis DNA labs drawn, were pending at time of discharge. Patient should follow-up with PCP regarding results of these tests. #Hepatic steatosis #Elevated LFTs -Previous CT A/P (04/23/22) with hepatic steatosis likely 2/2 alcohol abuse. AST>ALT shows alcohol related pattern. -ALP elevated most likely due to alcoholic liver disease. -Improving by time of discharge. Recommend follow-up with CMP. #Hypokalemia/Hypomag/Hyponatremia -Likely from AUD. Repleted. -Recommend follow-up CMP and magnesium in 1 week. #Anxiety #Depression -cont. fluoxetine and buspar -Should follow-up as an outpatient to address underlying anxiety and depression being the cause of patient's alcoholism. -Patient wanted to leave before getting set up with outpatient counseling. Recommend patient seek out and find counseling regarding his anxiety, depression, and alcohol dependence. Total Time Total Time Spent Total Time Spent (In Minutes): 20 Discharge Plan Discharge Items Patient Disposition: Home - Self-Care Reason For Visit: WEAKNESS Discharge Diagnosis: Alcohol withdrawal Activity: Per Instructions section Activity Comment: Please use your walker for ambulation until you are able to see PT Weightbearing Comment: Use walker Non-emergency contact: Primary Care Provider Call non-emergency contact if: you have any medication questions, your pain is unusual for you and your temperature is above 101.5 Follow-up/Referrals: Kvng Mcghee III, CRNP [Primary Care Provider] - 07/18/22 9:20 am Diet: Regular Addtl Attending Provider Instructions: You were admitted to the hospital for alcohol withdrawal. You were treated with fluids. A discharge summary will be sent to your primary care physician to ensure continuity of care. Please bring this discharge summary with you to your next office appointment so that your provider can review it at that time. Follow-up appointments: * Make a follow-up appointment with your PCP within the next week. It is very important that you follow up with them shortly after discharge from the hospital. * Keep all your follow-up appointments as already scheduled. If you cannot make an appointment, notify your provider. Medications: Your medication list has been reviewed and reconciled upon discharge to ensure accuracy and continuity of care. An updated list of all your medications is incl uded with your hospital discharge paperwork. Please review this list closely, and make note of any changes. * No new medications were added during this visit. * If you have any issues filling these prescriptions, please call [phone] and ask to leave a message for Dr. Harper. * Take your medications as instructed; do not skip a dose of your medicines. Make sure all of your doctors know every medicine you are taking (including jmkx-vax-psoxkmy medicines, vitamins, and supplements). Call your primary care provider before taking any new medicines (including over- the-counter medicines, vitamins, and supplements), because some of these may interact with your current medications, or may make your symptoms worse. Tell your primary care provider if you cannot afford your medications. CONTACT YOUR PRIMARY CARE PROVIDER if you experience any of the following: * Worsening of symptoms * Fever, chills, or fatigue * Difficulty following your treatment plan, or difficulty taking medications CALL 911 OR GO TO THE EMERGENCY DEPARTMENT if you experience any of the following: * Sudden, severe abdominal pain or nausea/vomiting * Severe chest pain, or chest pain that radiates (moves) to your jaw or arm * Sudden, severe shortness of breath or difficulty breathing Thank you for allowing us to participate in your care. Pending Studies at Discharge: Yes Studies:: Hemochromatosis labs Stand-Alone Forms: My [facility], Smoking Cessation Medications and DC Order Prescriptions: Continued fluoxetine 40 mg capsule 40 mg PO DAILY Qty: 30 2RF thiamine HCl (vitamin B1) 100 mg tablet 100 mg PO QAM Qty: 30 5RF magnesium oxide 400 mg magnesium capsule 400 mg PO DAILY Qty: 30 1RF multivitamin Tablet 1 tab PO DAILY buspirone 5 mg tablet 5 mg PO BID Rx Instructions: TAKE 1 TABLET BY MOUTH TWICE A DAY melatonin 12 mg Tablet 12 mg PO HS pantoprazole 40 mg tablet,delayed release (DR/EC) 40 mg PO DAILY Rx Instructions: TAKE 1 TABLET BY MOUTH EVERY DAY folic acid 1 mg tablet 1 mg PO DAILY Rx Instructions: TAKE 1 TAB ORALLY DAILY IN THE MORNING metoprolol tartrate 25 mg tablet 25 mg PO BID Rx Instructions: PER PT "WAS AFRAID B/P WOULD GET TOO HIGH, TAKING WHOLE TAB BID". PT ORDERED 1/2 TAB BY MOUTH TWICE A DAY Discharge Orders: Discharge Order (Routine); Ordered 07/15/22 Ordered By: Mario Plummer/Other Patient Handouts: Addiction Disease, Alcohol Addiction, Addiction: Your Treatment Options, Addiction Recovery Counseling Admission Data Admit Date/Time: 07/12/22 00:07 Attending Provider: Camryn Valdes Admit Provider: Richard Nugent Primary Care Provider: Kvng Mcghee III Other Providers: Norma Morales Other Interventions: Discharge Summary Assessment (RN) Last Done: 07/15/22 15:42 Supervising Physician Co-Signing Physician Notes Resident Physician Supervision Note: I independently interviewed and examined the patient and verified the kirk history and physical, reviewed labs and image studies and agree with resident findings and care plan. Resident Activity Tracking Resident Involvement: Resident Care Provided Care Provided: Adult Hospital Medicine
== END 2022-07-15 16:29 | disposition home or self-care (01) | DRG 897 ==
LOC: ED 19:54 → SUATTDRO 07-12 00:07 → EDINP 07-12 00:07 → 2S 07-12 20:08

== ENCOUNTER 2022-09-30 16:58 | Inpatient (IN) ==
[2022-09-30] MEDS ORDERED: THIAMINE HCL 200 MG in SODIUM CHLORIDE 0.9% 50 ML IV STA (17:17)
--- NOTE | 2022-09-30 17:23 | Emergency Department Note ---
Impression & Plan Weakness, Alcohol abuse, Hypomagnesemia, Abnormal EKG ED Provider Note NAME: BINA GATES AGE: 51 SEX: M : 1970 ARRIVES VIA: Ambulance INFORMANT: Patient, ED PROVIDER(S): Demond Skinner DO CHIEF COMPLAINT: Weakness HPI: The patient is a 51-year-old male who presented to the emergency department by ambulance for an evaluation of generalized weakness. The patient has a history of chronic alcohol use. He states he has been cutting back on his alcohol intake recently. The patient states that he was at home and he was having trouble ambulating. His sister got concerned and called 911. He states he has chronic abdominal and back pain. He denies having any recent trauma or headaches. ROS: See above HPI for pertinent positives & negatives. A total of 10 systems reviewed and were otherwise negative. PAST MEDICAL HISTORY: See Below PAST SURGICAL HISTORY: See Below FAMILY HISTORY: See Below SOCIAL HISTORY: See Below HOME MEDICATIONS: See Below ALLERGIES: See Below VITALS: See Below PHYSICAL EXAMINATION: GENERAL: The patient is awake and alert. He is somewhat anxious appearing. EYES: The conjunctivae are clear. The pupils are round and reactive. EARS, NOSE, MOUTH AND THROAT: The nose is without any evidence of any deformity. NECK: The neck is nontender and supple. RESPIRATORY: Normal respiratory effort is noted there is no evidence of wheezing rhonchi or rales CARDIOVASCULAR: Regular rate and rhythm noted there no murmurs rubs or gallops normal S1 normal S2. GASTROINTESTINAL: The abdomen is soft and nondistended. There is tenderness diffusely but no guarding rigidity. MUSCULOSKELETAL/EXTREMITIES: There is no evidence of gross deformity full range of motion is noted in the hips and shoulders. SKIN: There is no obvious evidence of any rash. There are no petechiae, pallor or cyanosis noted. NEUROLOGIC: Patient is awake alert and oriented x3 strength is symmetric patellar reflexes are 2+ bilaterally. The patient is tremulous. MEDICAL DECISION MAKING: The patient is a 51-year-old male who presented to the emergency department for an evaluation of generalized weakness. The patient has a history of alcohol abuse. He has no recent trauma. He was recently treated for anemia. The patient's sister went to check on him today and found him very weak and having difficulty ambulating. She called 911 and the patient arrived at the emergency department via ambulance. The patient was treated with IV fluids. He was also treated with IV magnesium for magnesium replacement. He was reevaluated multiple times. Patellar tendon reflexes were symmetric. The patient does have the desire to stop drinking. He did start to have some tremors. He was treated with Ativan in the emergency department. I discussed the patient's laboratory and radiographic studies with him. Given his desire to stop drinking and his history I will discuss his case with the on-call [facility] hospitalist. Triage Nursing notes reviewed. Prior medical records reviewed Vital Signs: reviewed and remarkable for tachycardia and hypertension. Differential diagnosis: Infection, dehydration, metabolic abnormality, hypo/hyperglycemia, electrolyte disturbance, anemia, hypoxia, cardiac sources, intracerebral event, toxicologic, neurologic, as well as other pathologies. ER treatment provided: See below Diagnostics interpreted by me: ECG: EKG was obtained in the emergency department. My interpretation is normal sinus rhythm at 88 bpm. There is no ectopy. ST and T wave abnormalities were noted in the anterior and lower lateral leads. This was compared to a tracing from July 11, 2022. No changes were noted. Cardiac Monitoring: An order was placed for continuous cardiac monitoring. The monitor shows a rate of 98 bpm with sinus rhythm. Laboratory studies: As stated above and show below. Imaging studies: See below. 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 Chronic alcohol use GI bleed Hypertension Hypertensive urgency Hypokalemia Hyponatremia Left foot drop Metabolic acidosis Nausea Pancreatitis Sensory polyneuropathy Smokes 1 pack of cigarettes per day Surgical History No pertinent past surgical history Family History Other Adopted Social History Smoking Status: Heavy tobacco smoker Tobacco Type: Cigarettes packs per day: 1; Cigarettes Per Day: 1/2 pack; Second Hand Exposure: No; Do You Dip or Chew Tobacco: No; Hx Alcohol Use: Yes Alcohol type: hard liquor Alcohol Intake Frequency Comment: 1/2 to one 5th of vodka daily, some beer Hx Substance Use: No Preferred Language: Colombian Communication Ability: Effective Visual Impairment: No Limitations Hearing Ability: Normal Controls Project 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 Required: No Beliefs That Will Affect Care: None marital status: Single Current Living Situation: Alone current occupational status: previously employed current occupation: Recently lost job working in an [employer] service How many Children do You have: 0 Feels Safe at Home: Yes Childhood Exposure to Second-Hand Smoke: Yes Diet: regular Dental Care, Regularly: No Physical Activity Frequency: Does not Exercise Seatbelt Use: always Sunscreen Use: No Assistive Devices: Glasses Allergies Allergies Allergy/AdvReac Type Severity Reaction Status Date / Time No Known Allergies Allergy Verified 08/23/22 16:54 Home Meds Home Medications Medication Instructions Recorded Confirmed multivitamin 1 tab PO DAILY 08/13/21 08/23/22 folic acid 1 mg tablet 1 mg PO DAILY 07/11/22 08/23/22 Previous Rx's Medication Instructions Recorded thiamine HCl (vitamin B1) 100 mg 100 mg PO QAM #30 tabs 06/14/22 tablet buspirone 10 mg tablet 10 mg PO BID #180 tabs 07/18/22 metoprolol succinate 25 mg 25 mg PO DAILY #90 tabs 07/18/22 tablet,extended release 24 hr trazodone 50 mg tablet 50 mg PO DAILY #90 tabs 07/18/22 calcium carbonate 600 mg-vitamin 1 cap PO DAILY #1 cap 07/25/22 D3 25 mcg (1,000 unit) capsule magnesium oxide 400 mg PO DAILY #30 caps 08/04/22 fluoxetine 40 mg capsule See Rx Instructions .Route 09/27/22 .COMPLEX #90 caps pantoprazole 40 mg tablet,delayed 40 mg PO DAILY #90 tabs 09/27/22 release Results & Data (ED) Vital Signs Vital Signs - 24 hr 09/30/22 16:48 09/30/22 17:08 09/30/22 17:17 Temperature 36.8 C Temperature Source Oral Pulse Rate 103 H 104 H Pulse Rate [Apical] Respiratory Rate 19 Respiratory Effort / Characteristics Non-Labored Respiratory Depth Normal Blood Pressure 113/93 Blood Pressure [Right Arm] Blood Pressure Mean 99 Blood Pressure Mean [Right Arm] Pulse Oximetry 96 96 Oxygen Delivery Method Room Air Room Air Sepsis Recent Fever Within 48 Hours No Sepsis New/Unexplained Change in Mental Status No Sepsis Action Taken by Nursing No Action Required 09/30/22 18:39 09/30/22 19:00 Temperature Temperature Source Pulse Rate Pulse Rate [Apical] 90 Respiratory Rate 16 Respiratory Effort / Characteristics Respiratory Depth Normal Blood Pressure Blood Pressure [Right Arm] 144/97 H Blood Pressure Mean Blood Pressure Mean [Right Arm] 112 Pulse Oximetry 100 Oxygen Delivery Method Room Air Room Air Sepsis Recent Fever Within 48 Hours Sepsis New/Unexplained Change in Mental Status Sepsis Action Taken by Care Home Medications Current Medication List: was personally reviewed by me Laboratory Data Attestation: I reviewed the patient's lab results. 09/30/22 17:12 09/30/22 17:12 Lab Results 09/30/22 09/30/22 09/30/22 Range/Units 17:12 17:12 17:12 WBC 4.37 L (4.8-10.8) K/ul RBC 3.08 L (4.70-6.10) M/uL Hgb 11.1 L (14.0-18.0) g/dl Hct 30.6 L (42.0-52.0) % MCV 99.4 (80.0-100.0) fL MCH 36.0 H (25.0-34.0) pg MCHC 36.3 H (32.0-36.0) g/dL RDW Std Deviation 53.1 H (36.4-46.3) fL RDW Coeff of Arturo 14.6 H (11.5-14.5) % Plt Count 98 L (130-400) K/uL MPV 9.9 (9.4-12.4) fL Immature Gran % (Auto) 0.2 % Neut % (Auto) 82.4 % Lymph % (Auto) 8.0 % Upson % (Auto) 8.7 % Eos % (Auto) 0.2 % Baso % (Auto) 0.5 % Neut # (Auto) 3.60 (1.40-6.50) K/uL Lymph # (Auto) 0.35 L (1.2-3.4) K/uL Upson # (Auto) 0.38 (0.11-0.59) K/uL Eos # (Auto) 0.01 (0-0.50) K/uL Baso # (Auto) 0.02 (0-0.2) K/uL Immature Gran # (Auto) 0.01 (0.01-0.20) K/uL PT (9.0-12.0) Seconds INR (0.9-1.1) APTT (21.0-31.0) Seconds PTT Ratio Sodium 135 L (136-145) mmol/L Potassium 4.0 (3.5-5.1) mmol/L Chloride 105 (98-107) mmol/L Carbon Dioxide 18 L (21-32) mmol/L Anion Gap 12 H (3-11) BUN 8 (6-23) mg/dl Creatinine 0.51 L (0.6-1.4) mg/dl Est Cr Clr Drug Dosing 160.1 ml/min Est GFR ( Amer) 143.2 ml/min Est GFR (Non-Af Amer) 123.6 ml/min BUN/Creatinine Ratio 15.7 (10-20) Glucose 179 H (70-99(Fasting)) mg/dl Osmolality (280-300) mOsm/kg Calcium 8.4 L (8.6-10.3) mg/dl Magnesium 1.2 L (1.7-2.4) mg/dl Total Bilirubin 0.7 (0.2-1.0) mg/dl AST 103 H (13-39) U/L ALT 33 (7-52) U/L Alkaline Phosphatase 157 H (34-104) U/L Total Creatine Kinase 53 (30-223) U/L Troponin I High Sens 5.6 (0-20) pg/ml Total Protein 6.8 (6.0-8.3) gm/dl Albumin 3.3 L (3.4-5.0) gm/dl Globulin 3.5 (2.5-4.0) gm/dl Albumin/Globulin Ratio 0.9 (0.9-2) Lipase 66 (11-82) U/L Urine Color Urine Appearance (Clear) Urine pH (4.5-7.5) Ur Specific [place] (1.000-1.030) Urine Protein (Negative) Urine Glucose (UA) (Negative) Urine Ketones (Negative) Urine Blood (Negative) Urine Nitrite (Negative) Urine Bilirubin (Negative) Urine Urobilinogen (Negative) Ur Leukocyte Esterase (Negative) Urine WBC (Auto) (0-5) /hpf Urine RBC (Auto) (0-4) /hpf U Hyaline Cast (Auto) (0-5) /lpf U Epithel Cells (Auto) (0-5) /lpf Urine Bacteria (Auto) (Negative) Salicylates (3.0-30) mg/dl Urine Opiates Screen (Neg) Ur Methadone, Qual (Neg) Acetaminophen (10-30) ug/ml Urine Barbiturates (Neg) Ur Phencyclidine (PCP) (Neg) U Amphetamin/Meth Scrn (Neg) MDMA (Ecstasy) Screen (Neg) U Benzodiazepines Scrn (Neg) Ur Cocaine Metabolite (Neg) U Marijuana (THC) Screen (Neg) Ethyl Alcohol mg/dL 208.3 H (<10.0) mg/dl SARS-CoV-2, RNA, NAAT (NEGATIVE) 09/30/22 09/30/22 09/30/22 Range/Units 17:12 17:12 17:12 WBC (4.8-10.8) K/ul RBC (4.70-6.10) M/uL Hgb (14.0-18.0) g/dl Hct (42.0-52.0) % MCV (80.0-100.0) fL MCH (25.0-34.0) pg MCHC (32.0-36.0) g/dL RDW Std Deviation (36.4-46.3) fL RDW Coeff of Arturo (11.5-14.5) % Plt Count (130-400) K/uL MPV (9.4-12.4) fL Immature Gran % (Auto) % Neut % (Auto) % Lymph % (Auto) % Upson % (Auto) % Eos % (Auto) % Baso % (Auto) % Neut # (Auto) (1.40-6.50) K/uL Lymph # (Auto) (1.2-3.4) K/uL Upson # (Auto) (0.11-0.59) K/uL Eos # (Auto) (0-0.50) K/uL Baso # (Auto) (0-0.2) K/uL Immature Gran # (Auto) (0.01-0.20) K/uL PT 12.7 H (9.0-12.0) Seconds INR 1.2 H (0.9-1.1) APTT 26.2 (21.0-31.0) Seconds PTT Ratio 0.9 Sodium (136-145) mmol/L Potassium (3.5-5.1) mmol/L Chloride (98-107) mmol/L Carbon Dioxide (21-32) mmol/L Anion Gap (3-11) BUN (6-23) mg/dl Creatinine (0.6-1.4) mg/dl Est Cr Clr Drug Dosing ml/min Est GFR ( Amer) ml/min Est GFR (Non-Af Amer) ml/min BUN/Creatinine Ratio (10-20) Glucose (70-99(Fasting)) mg/dl Osmolality 341 H (280-300) mOsm/kg Calcium (8.6-10.3) mg/dl Magnesium (1.7-2.4) mg/dl Total Bilirubin (0.2-1.0) mg/dl AST (13-39) U/L ALT (7-52) U/L Alkaline Phosphatase (34-104) U/L Total Creatine Kinase (30-223) U/L Troponin I High Sens (0-20) pg/ml Total Protein (6.0-8.3) gm/dl Albumin (3.4-5.0) gm/dl Globulin (2.5-4.0) gm/dl Albumin/Globulin Ratio (0.9-2) Lipase (11-82) U/L Urine Color Urine Appearance (Clear) Urine pH (4.5-7.5) Ur Specific [place] (1.000-1.030) Urine Protein (Negative) Urine Glucose (UA) (Negative) Urine Ketones (Negative) Urine Blood (Negative) Urine Nitrite (Negative) Urine Bilirubin (Negative) Urine Urobilinogen (Negative) Ur Leukocyte Esterase (Negative) Urine WBC (Auto) (0-5) /hpf Urine RBC (Auto) (0-4) /hpf U Hyaline Cast (Auto) (0-5) /lpf U Epithel Cells (Auto) (0-5) /lpf Urine Bacteria (Auto) (Negative) Salicylates < 3.0 L (3.0-30) mg/dl Urine Opiates Screen (Neg) Ur Methadone, Qual (Neg) Acetaminophen < 3 L (10-30) ug/ml Urine Barbiturates (Neg) Ur Phencyclidine (PCP) (Neg) U Amphetamin/Meth Scrn (Neg) MDMA (Ecstasy) Screen (Neg) U Benzodiazepines Scrn (Neg) Ur Cocaine Metabolite (Neg) U Marijuana (THC) Screen (Neg) Ethyl Alcohol mg/dL (<10.0) mg/dl SARS-CoV-2, RNA, NAAT (NEGATIVE) 09/30/22 09/30/22 09/30/22 Range/Units 17:37 17:37 19:30 WBC (4.8-10.8) K/ul RBC (4.70-6.10) M/uL Hgb (14.0-18.0) g/dl Hct (42.0-52.0) % MCV (80.0-100.0) fL MCH (25.0-34.0) pg MCHC (32.0-36.0) g/dL RDW Std Deviation (36.4-46.3) fL RDW Coeff of Arturo (11.5-14.5) % Plt Count (130-400) K/uL MPV (9.4-12.4) fL Immature Gran % (Auto) % Neut % (Auto) % Lymph % (Auto) % Upson % (Auto) % Eos % (Auto) % Baso % (Auto) % Neut # (Auto) (1.40-6.50) K/uL Lymph # (Auto) (1.2-3.4) K/uL Upson # (Auto) (0.11-0.59) K/uL Eos # (Auto) (0-0.50) K/uL Baso # (Auto) (0-0.2) K/uL Immature Gran # (Auto) (0.01-0.20) K/uL PT (9.0-12.0) Seconds INR (0.9-1.1) APTT (21.0-31.0) Seconds PTT Ratio Sodium (136-145) mmol/L Potassium (3.5-5.1) mmol/L Chloride (98-107) mmol/L Carbon Dioxide (21-32) mmol/L Anion Gap (3-11) BUN (6-23) mg/dl Creatinine (0.6-1.4) mg/dl Est Cr Clr Drug Dosing ml/min Est GFR ( Amer) ml/min Est GFR (Non-Af Amer) ml/min BUN/Creatinine Ratio (10-20) Glucose (70-99(Fasting)) mg/dl Osmolality (280-300) mOsm/kg Calcium (8.6-10.3) mg/dl Magnesium (1.7-2.4) mg/dl Total Bilirubin (0.2-1.0) mg/dl AST (13-39) U/L ALT (7-52) U/L Alkaline Phosphatase (34-104) U/L Total Creatine Kinase (30-223) U/L Troponin I High Sens (0-20) pg/ml Total Protein (6.0-8.3) gm/dl Albumin (3.4-5.0) gm/dl Globulin (2.5-4.0) gm/dl Albumin/Globulin Ratio (0.9-2) Lipase (11-82) U/L Urine Color Dark Yellow Urine Appearance Clear (Clear) Urine pH 6.5 (4.5-7.5) Ur Specific [place] 1.012 (1.000-1.030) Urine Protein 1+ H (Negative) Urine Glucose (UA) Negative (Negative) Urine Ketones 1+ H (Negative) Urine Blood Negative (Negative) Urine Nitrite Negative (Negative) Urine Bilirubin Negative (Negative) Urine Urobilinogen Negative (Negative) Ur Leukocyte Esterase Negative (Negative) Urine WBC (Auto) 1-5 (0-5) /hpf Urine RBC (Auto) 0-4 (0-4) /hpf U Hyaline Cast (Auto) 5-10 H (0-5) /lpf U Epithel Cells (Auto) 10-20 H (0-5) /lpf Urine Bacteria (Auto) Negative (Negative) Salicylates (3.0-30) mg/dl Urine Opiates Screen Neg (Neg) Ur Methadone, Qual Neg (Neg) Acetaminophen (10-30) ug/ml Urine Barbiturates Neg (Neg) Ur Phencyclidine (PCP) Neg (Neg) U Amphetamin/Meth Scrn Neg (Neg) MDMA (Ecstasy) Screen Neg (Neg) U Benzodiazepines Scrn Neg (Neg) Ur Cocaine Metabolite Neg (Neg) U Marijuana (THC) Screen Neg (Neg) Ethyl Alcohol mg/dL (<10.0) mg/dl SARS-CoV-2, RNA, NAAT NEGATIVE (NEGATIVE) Administered Medications Magnesium Sulfate/Dextrose (Magnesium Sulfate / D5w) 1 gm in 100 mls @ 100 mls/hr IV Q1H SAMMY Stop: 09/30/22 21:19 Last Admin: 09/30/22 19:27 Dose: 100 mls/hr Documented By: RESHMA Discontinued Medications Sodium Chloride (Nss 1000ml) 1,000 mls @ 999 mls/hr IV .Q1H1M SAMMY Stop: 09/30/22 18:30 Last Infusion: 09/30/22 19:05 Dose: 0 mls/hr Documented By: Admin: 09/30/22 18:01 Dose: 999 mls/hr Documented By: TREVON Thiamine HCl 200 mg/ Sodium (Chloride) 52 mls @ 210 mls/hr IV NOW STA Stop: 09/30/22 17:31 Last Infusion: 09/30/22 18:59 Dose: 0 mls/hr Documented By: Admin: 09/30/22 18:42 Dose: 210 mls/hr Documented By: TREVON Lorazepam (Lorazepam 2 Mg/1 Ml Vial) 1 mg IV NOW STA Stop: 09/30/22 18:46 Last Admin: 09/30/22 18:59 Dose: 1 mg Documented By: RESHMA Magnesium Oxide (Magnesium Oxide 400 Mg Tab) 400 mg PO ONE ONE Stop: 09/30/22 19:22 Last Admin: 09/30/22 19:27 Dose: 400 mg Documented By: RESHMA Imaging Data Attestation: I personally reviewed and interpreted this imaging study as follo ws: My Impression: 1 view chest x-ray was obtained in the emergency department. My interpretation is no free air or definite infiltrate final report below. Radiologist's Impression: Chest X-Ray 09/30/22 17:17 XR chest 1V portable CLINICAL HISTORY: SOB TECHNIQUE: Single frontal radiograph of the chest was obtained. Comparison: Comparison is made to chest radiograph 04/23/2019 FINDINGS: No lines and tubes are seen. The cardiomediastinal silhouette is normal. The lungs are clear. No evidence of pleural effusion or pneumothorax. IMPRESSION: No acute abnormalities and in particular no radiographic evidence of pneumonia. ACT 112: Negative or not required by law. Electronically signed by: Tay Padilla M.D. 09/30/2022 5:30 PM Discharge Plan Visit Data Chief Complaint: Illness Stated Complaint: ETOH, ANXIETY, DEPRESSION ED Provider: eDmond Skinner Discharge Problem: Weakness, Alcohol abuse, Hypomagnesemia, Abnormal EKG Patient Disposition: Being Evaluated by Hospitalist Forms Stand Alone Forms: My [facility] Prescriptions Prescriptions: No Action thiamine HCl (vitamin B1) 100 mg tablet 100 mg PO QAM Qty: 30 5RF calcium carbonate-vitamin D3 600 mg-25 mcg (1,000 unit) capsule 1 cap PO DAILY Qty: 1 0RF Rx Instructions: Per lab work dated 07/25/22 magnesium oxide 400 mg magnesium capsule 400 mg PO DAILY Qty: 30 1RF fluoxetine 40 mg capsule See Rx Instructions .ROUTE .COMPLEX Qty: 90 1RF Dose Instruction: TAKE 1 CAPSULE BY MOUTH EVERY DAY Rx Instructions: TAKE 1 CAPSULE BY MOUTH EVERY DAY pantoprazole 40 mg tablet,delayed release (DR/EC) 40 mg PO DAILY Qty: 90 1RF Rx Instructions: TAKE 1 TABLET BY MOUTH EVERY DAY metoprolol succinate 25 mg tablet extended release 24 hr 25 mg PO DAILY Qty: 90 1RF buspirone 10 mg tablet 10 mg PO BID Qty: 180 1RF trazodone 50 mg tablet 50 mg PO DAILY Qty: 90 3RF multivitamin Tablet 1 tab PO DAILY folic acid 1 mg tablet 1 mg PO DAILY Rx Instructions: TAKE 1 TAB ORALLY DAILY IN THE MORNING Referrals Referrals: Kvng Mcghee III, CRNP [Primary Care Provider] -
[2022-09-30] MEDS ORDERED: SODIUM CHLORIDE 0.9% 1000ML 1,000 ML IV SCH (17:30)
--- NOTE | 2022-09-30 17:32 | XRay Report ---
XR chest 1V portable CLINICAL HISTORY: SOB TECHNIQUE: Single frontal radiograph of the chest was obtained. Comparison: Comparison is made to chest radiograph 04/23/2019 FINDINGS: No lines and tubes are seen. The cardiomediastinal silhouette is normal. The lungs are clear. No evid ence of pleural effusion or pneumothorax. IMPRESSION: No acute abnormalities and in particular no radiographic evidence of pneumonia. ACT 112: Negative or not required by law. Electronically signed by: Tay Padilla M.D. 09/30/2022 5:30 PM
[2022-09-30 18:10] LABS: Basophils # (auto) 0.02 K/uL (0-0.2); Basophils % (auto) 0.5 %; Eosinophils # (auto) 0.01 K/uL (0-0.50); Eosinophils % (auto) 0.2 %; Hematocrit (blood only) 30.6 % (42.0-52.0); Hemoglobin 11.1 g/dl (14.0-18.0); Immature Granulocytes # (auto) 0.01 K/uL (0.01-0.20); Immature Granulocytes % (auto) 0.2 %; Lymphocytes # (auto) 0.35 K/uL (1.2-3.4); Mean Corpuscular Hgb Conc 36.3 g/dL (32.0-36.0); Mean Corpuscular Volume 99.4 fL (80.0-100.0); Mean Platelet Volume 9.9 fL (9.4-12.4); Monocytes # (auto) 0.38 K/uL (0.11-0.59); Monocytes % (auto) 8.7 %; Neutrophils % (auto) 82.4 %; Platelet Count 98 K/uL (130-400); RDW Coefficient of Variation 14.6 % (11.5-14.5); RDW Standard Deviation 53.1 fL (36.4-46.3); Red Blood Count 3.08 M/uL (4.70-6.10); White Blood Count 4.37 K/ul (4.8-10.8)
[2022-09-30 18:22] LABS: Acetaminophen < 3 ug/ml (10-30); Salicylate < 3.0 mg/dl (3.0-30)
[2022-09-30 18:24] LABS: Albumin Globulin Ratio 0.9 (0.9-2); Albumin Level 3.3 gm/dl (3.4-5.0); BUN Creatinine Ratio 15.7 (10-20); Bilirubin,Total 0.7 mg/dl (0.2-1.0); Calcium 8.4 mg/dl (8.6-10.3); Creatinine Clr Calc Pharmacy 160.1 ml/min; Est GFR (African American) 143.2 ml/min; Est GFR (Non-African American) 123.6 ml/min; Globulin 3.5 gm/dl (2.5-4.0); Magnesium 1.2 mg/dl (1.7-2.4); Total Protein 6.8 gm/dl (6.0-8.3)
[2022-09-30 18:31] LABS: Troponin I High Sensitivity 5.6 pg/ml (0-20)
[2022-09-30 18:40] LABS: INR 1.2 (0.9-1.1); Partial Thromboplastin Ratio 0.9; Partial Thromboplastin Time 26.2 Seconds (21.0-31.0); Prothrombin Time 12.7 Seconds (9.0-12.0)
[2022-09-30] MEDS ORDERED: LORazepam 2 MG/1 ML VIAL IV STA (18:45)
[2022-09-30 18:58] LABS: Appearance Urine Clear (Clear); Bacteria Urine Automated Negative (Negative); Bilirubin Urine Negative (Negative); Blood Urine Negative (Negative); Color Urine Dark Yellow; Glucose Urine UA Negative (Negative); Ketones Urine 1+ (Negative); Leukocyte Esterase Urine Negative (Negative); Nitrite Urine Negative (Negative); Protein Urine 1+ (Negative); RBC Urine Automated 0-4 /hpf (0-4); Specific Gravity Urine 1.012 (1.000-1.030); Urobilinogen Urine Negative (Negative); pH Urine 6.5 (4.5-7.5)
[2022-09-30] MEDS ORDERED: MAGNESIUM OXIDE 400 MG TAB PO ONE (19:21)
[2022-09-30] MEDS: MAGNESIUM SULFATE / D5W 1 GM/100 ML BAG IV SCH ×2 (19:27→20:25)
[2022-09-30 19:43] LABS: Amphetamines+Metham, Urine Neg (Neg); Barbiturates, Urine Neg (Neg); Benzodiazepine, Urine Neg (Neg); Cocaine, Urine Neg (Neg); MDMA (Ecstacy), Urine Neg (Neg); Methadone, Urine Neg (Neg); Opiate, Urine Neg (Neg); Phencyclidine, Urine Neg (Neg)
[2022-09-30] MEDS ORDERED: KETOROLAC TROMETHAMINE 15 MG/ML VIAL IV ONE (20:15)
--- NOTE | 2022-09-30 21:13 | History & Physical Report ---
Date of Service September 30, 2022 Assessment & Plan (1) Weakness: Plan: 51 yo male PMHx of anxiety/depression, alcohol abuse, lumbar radiculopathy, and HTN presents with lower extremity weakness. #Weakness #Alcohol abuse/withdrawal -progressively worsening weakness likely multifactorial due to poor oral intake, alcohol abuse, anemia, electrolyte abnormalities. -CXR unremarkable -ethyl alcohol 209 -placed on AWSS active withdrawal protocol + librium taper -NSS 1L bolus given in ED. Cont. maintenance. -Thiamine and folic acid daily -electrolyte repletion as below -case management on board. Will try to get patient directly to inpatient rehab. Consider naltrexone as outpatient. #Hypomagnesemia -K 1.2 on admission. -replenishing #Anemia, chronic -Hgb 11.1 on admission. MCV 99. Hgb is improved from prior admission. Likely due to chronic alcohol abuse. #Thrombocytopenia -plt 98 on admission. Does have h/o this. Likely due to alcohol abuse. #Hepatic steatosis #Elevated LFTs -previous CT A/P (04/23/22) with hepatic steatosis likely 2/2 alcohol abuse. AST>ALT shows alcohol related pattern. Unclear why ALP elevated. -trend LFTs #HTN -cont. metoprolol #Anxiety #Depression -cont. fluoxetine, buspar, trazadone #GERD -cont. pantoprazole DVT ppx: Lovenox FEN/GI: Regular Code Status: Full Dispo: PCU (2) Alcohol abuse: (3) Hypomagnesemia: (4) Hypertension: (5) Anxiety: (6) Depression: (7) Lumbar radiculopathy: History of Present Illness Chief Complaint: weakness, alcohol withdrawal Primary Care Provider: Kvng Mcghee, III, RATE CLERK 51 yo male PMHx of anxiety/depression, alcohol abuse, lumbar radiculopathy, and HTN presents with lower extremity weakness. Patient is chronically weak in the legs however today was unable to get up due to the weakness. He has a chronic history of alcohol abuse and nutrition is poor. His last drink was at 4 PM this afternoon. He does endorse some mild tremors, headache, chronic abd pain, and improving shortness of breath. Denies fever, chest pain,incontinence, diarrhea, nausea, vomiting. Allergies Allergy/AdvReac Type Severity Reaction Status Date / Time No Known Allergies Allergy Verified 09/30/22 20:03 Home Medications Medication Instructions Recorded Confirmed Type multivitamin 1 tab PO DAILY 08/13/21 09/30/22 History thiamine HCl (vitamin B1) 100 mg 100 mg PO QAM #30 tabs 06/14/22 09/30/22 Rx tablet folic acid 1 mg tablet 1 mg PO DAILY 07/11/22 09/30/22 History buspirone 10 mg tablet 10 mg PO BID #180 tabs 07/18/22 09/30/22 Rx metoprolol succinate 25 mg 25 mg PO DAILY #90 tabs 07/18/22 09/30/22 Rx tablet,extended release 24 hr calcium carbonate 600 mg-vitamin 1 cap PO DAILY #1 cap 07/25/22 09/30/22 Rx D3 25 mcg (1,000 unit) capsule magnesium oxide 400 mg PO DAILY #30 caps 08/04/22 09/30/22 Rx pantoprazole 40 mg tablet,delayed 40 mg PO DAILY #90 tabs 09/27/22 09/30/22 Rx release fluoxetine 40 mg capsule 40 mg PO DAILY 09/30/22 09/30/22 History trazodone 50 mg tablet 50 mg PO HS 09/30/22 09/30/22 History Past Med/Surg History Medical History Acute blood loss anemia Alcohol intoxication Alcohol withdrawal 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 Chronic alcohol use GI bleed Hypertension Hypertensive urgency Hypokalemia Hyponatremia Left foot drop Metabolic acidosis Nausea Pancreatitis Sensory polyneuropathy Smokes 1 pack of cigarettes per day Surgical History No pertinent past surgical history Family History Other Adopted Social History Smoking Status: Current every day smoker Tobacco Type: Cigarettes packs per day: 1; Cigarettes Per Day: pack/day; Second Hand Exposure: No; Do You Dip or Chew Tobacco: No; Tobacco Cessation Education Requested by Patient: No Hx Alcohol Use: Yes Alcohol type: beer and hard liquor Alcohol Intake Frequency Comment: 1/2 to one 5th of vodka daily, some beer Hx Substance Use: No Preferred Language: Mosotho Communication Ability: Effective Visual Impairment: No Limitations Hearing Ability: Normal 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: No Beliefs That Will Affect Care: None marital status: Single Current Living Situation: Alone current occupational status: previously employed current occupation: Recently lost job working in an [employer] service How many Children do You have: 0 Other Information That Helps Us Care for You: No Feels Safe at Home: Yes Safety Concerns: Feels Safe At This Time Childhood Exposure to Second-Hand Smoke: Yes Diet: regular Dental Care, Regularly: No Physical Activity Frequency: Does not Exercise Seatbelt Use: always Sunscreen Use: No Assistive Devices: None Review of Systems Review of Systems: All systems reviewed & are unremarkable except as noted in HPI & below Physical Exam Physical Exam: Constitutional: in no acute distress, pleasant, intact memory. AOx3. Vitals as above. HEENT: No scleral injection or discharge.Dry mucous membranes. Clear oropharynx without erythema/exudate. PERRL. EOMI. Neck: Supple without lymphadenopathy or thyromegaly. Trachea midline. Lungs: Clear to auscultation bilaterally with good effort. Cardiac: Regular rate and rhythm. No murmurs. No extremity edema. 2+ distal peripheral pulses. Abdomen: Bowel sounds present. Soft and nondistended.Mild diffuse tenderness. No guarding.No hepatosplenomegaly. MSK: No cyanosis or clubbing. Lower extremity motor strength 4/5 bilaterally. Skin: No abnormal rashes, warm, dry. Neurologic: no focal deficits Results & Data Results & Data Vital Signs (Past 12 Hours) Vital Signs Temp Pulse Pulse Resp BP BP Pulse Ox 09/30/22 20:30 89 16 138/94 96 09/30/22 19:00 90 16 144/97 H 100 09/30/22 18:39 09/30/22 17:17 96 09/30/22 17:08 104 H 09/30/22 16:48 36.8 C 103 H 19 113/93 96 O2 Del Method 09/30/22 20:30 Room Air 09/30/22 19:00 Room Air 09/30/22 18:39 Room Air 09/30/22 17:17 Room Air 09/30/22 17:08 09/30/22 16:48 Room Air Code Status & VTE Plan VTE Prophylaxis Plan VTE Prophylaxis will be ordered: Yes Supervising Physician Co-Signing Physician Notes Attending addendum: I have physically seen this patient, have supervised the medical residents activities, and agree with the H&P unless as otherwise noted. Assessment and Plan: Alcohol withdrawal/alcohol abuse- The patient will be admitted to telemetry for serial cardiac enzymes, serial EKG's, cardiac rhythm monitoring Thiamine 100 mg p.o. daily Folic acid 1 mg p.o. daily Multivitamin 1 daily AWSS protocol with IV Ativan Patient has expressed a desire to go to inpatient rehabilitation, we will consult social science professor for such Hypomagnesemia- Magnesium 1.2 on admission Replacing with IV, and recheck laboratories in a.m. Thrombocytopenia- Platelets 98 on admission Likely associated with alcohol abuse Follow serially Avoid antiplatelet agents Remaining orders and notations as noted Resident Activity Tracking Resident Involvement: Resident Care Provided Care Provided: Adult Hospital Medicine
[2022-09-30] MEDS ORDERED: ONDANSETRON 4 MG OD TAB PO PRN (23:04)
[2022-09-30] MEDS ORDERED: LORazepam 2 MG/1 ML VIAL IV PRN ×2 (23:04)
[2022-09-30] MEDS ORDERED: chlordiazePOXIDE ALCOHOL WITHDRAWL 25MG PO STA (23:04)
[2022-09-30] MEDS ORDERED: Ativan IV Alcohol Withdrawal--Active Protocol IV PRN (23:04)
[2022-09-30] MEDS: LORazepam 2 MG/1 ML VIAL IV PRN (23:50)
[2022-09-30] MEDS: traZODone HCL 50 MG TAB PO SCH (23:51)
[2022-09-30] MEDS: chlordiazePOXIDE HCl 25 MG CAP PO SCH (23:51)
[2022-09-30] MEDS: busPIRone 5 MG TAB PO SCH (23:51)
[2022-09-30] MEDS: SODIUM CHLORIDE 0.9% 1000ML 1,000 ML IV SCH (23:52)
[2022-10-01] MEDS: chlordiazePOXIDE HCl 25 MG CAP PO SCH ×4 (00:01→17:12)
[2022-10-01] MEDS: ENOXAPARIN INJ 40 MG/0.4 ML SYR SQ SCH ×2 (00:15→10:09)
[2022-10-01 07:34] LABS: Albumin Globulin Ratio 0.9 (0.9-2); Albumin Level 2.9 gm/dl (3.4-5.0); BUN Creatinine Ratio 15.2 (10-20); Bilirubin,Total 0.9 mg/dl (0.2-1.0); Calcium 7.8 mg/dl (8.6-10.3); Creatinine Clr Calc Pharmacy 272.6 ml/min; Est GFR (African American) 149.4 ml/min; Est GFR (Non-African American) 128.9 ml/min; Globulin 3.2 gm/dl (2.5-4.0); Magnesium 1.9 mg/dl (1.7-2.4); Potassium 4.4 mmol/L (3.5-5.1); Total Protein 6.1 gm/dl (6.0-8.3)
[2022-10-01 07:43] LABS: INR 1.1 (0.9-1.1); Prothrombin Time 12.4 Seconds (9.0-12.0)
[2022-10-01 07:54] LABS: Basophils # (auto) 0.02 K/uL (0-0.2); Basophils % (auto) 0.6 %; Eosinophils % (auto) 2.9 %; Hematocrit (blood only) 29.2 % (42.0-52.0); Hemoglobin 10.3 g/dl (14.0-18.0); Lymphocytes # (auto) 1.04 K/uL (1.2-3.4); Lymphocytes % (auto) 29.7 %; Mean Corpuscular Hemoglobin 35.4 pg (25.0-34.0); Mean Corpuscular Hgb Conc 35.3 g/dL (32.0-36.0); Mean Corpuscular Volume 100.3 fL (80.0-100.0); Mean Platelet Volume 10.7 fL (9.4-12.4); Monocytes # (auto) 0.34 K/uL (0.11-0.59); Monocytes % (auto) 9.7 %; Neutrophils % (auto) 57.1 %; Platelet Count 79 K/uL (130-400); RDW Coefficient of Variation 14.7 % (11.5-14.5); RDW Standard Deviation 54.4 fL (36.4-46.3); Red Blood Count 2.91 M/uL (4.70-6.10)
[2022-10-01] MEDS: FOLIC ACID 1 MG TAB PO SCH (08:28)
[2022-10-01] MEDS: ACETAMINOPHEN 325 MG TAB PO PRN ×2 (08:28→19:32)
[2022-10-01] MEDS: PANTOprazole 40 MG TAB PO SCH (08:28)
[2022-10-01] MEDS: MAGNESIUM OXIDE 400 MG TAB PO SCH (08:28)
[2022-10-01] MEDS: FLUoxetine HCL 20 MG CAP PO SCH (08:29)
[2022-10-01] MEDS: METOPROLOL SUCC 25MG EXT REL TAB PO SCH (08:29)
[2022-10-01] MEDS: busPIRone 5 MG TAB PO SCH ×2 (08:29→19:32)
[2022-10-01] MEDS ORDERED: THIAMINE HCL 100 MG TAB PO SCH (09:00)
[2022-10-01] MEDS: SODIUM CHLORIDE 0.9% 1000ML 1,000 ML IV SCH (09:07)
[2022-10-01] MEDS: THIAMINE HCL 500 MG in SODIUM CHLORIDE 0.9% 50 ML IV SCH ×2 (10:20→17:14)
[2022-10-01] MEDS: LORazepam 2 MG/1 ML VIAL IV PRN (12:08)
--- NOTE | 2022-10-01 20:00 | Hospitalist Progress Note ---
Date of Service October 01, 2022 Assessment & Plan (1) Alcohol withdrawal: Plan: active etoh withdrawal cont librium taper ativan prn per AWSS protocol add thiamine 500mg IV TID x 2 days, then 200mg BID thereafter add folic acid 1mg daily add MVI telemetry supportive care (2) Weakness: Plan: multifactorial - low mag, deconditioning, has baseline neuropathy of legs (etoh induced?), h/o lumbar radiculopathy by his report PT, OT evals MRI l-spine in 2019 with severe spinal stenosis his leg weakness is concerning thus, will obtain repeat MRI l-spine while here (3) Hypomagnesemia: Plan: severe likely contributed to weakness improved s/p replacement low mag 2nd to etoh abuse (4) Pancytopenia: Plan: 2nd to alcohol and bone marrow suppression from such TSH wnl B12 level 07/2022 wnl Folate level 07/2022 wnl CBC in am for stability (5) Hypertension: Plan: cont metoprolol succ 25mg daily titrate as needed (6) Tobacco use disorder: Plan: add nicoderm patch 21mg/day Plan DVT proph - lovenox - change to once daily dosing of 40mg Admission and Anticipated Discharge Date Admission Date: September 30, 2022 Subjective pt resting in bed during the visit very shaky and tremulous no hallucinations has had withdrawal in the past but no DTs has had etoh withdrawal seizures in the past main complaint is that of b/l leg weakness chronic, but acutely worse patient does want to attend inpatient etoh rehab post-d/c tele overnight wnl last etoh beverage - yesterday afternoon drinks 12 pack of spiked selzters and a "few" beers Review of Systems Review of Systems: gen - no fever cv - no chest pain pulm - no dyspnea GI - no nausea/emesis Physical Exam Physical Exam: gen - mild tremors noted, little anxious mouth - MMM neck - no JVD heart - RRR, s1 s2 lungs - CTA b/l abd - soft NT ND BS+; liver edge palpable ext - no edema, pulses 2+ b/l psych - a/o x 3 neuro - mild tremors Results & Data Results & Data Vital Signs (Past 12 Hours) Vital Signs Temp Pulse Pulse Resp BP Pulse Ox O2 Del Method 10/01/22 19:22 36.6 C 85 18 131/86 97 Room Air 10/01/22 15:37 36.6 C 80 20 129/83 100 Room Air 10/01/22 15:19 74 10/01/22 11:08 36.7 C 72 18 139/84 97 Room Air Laboratory Results Laboratory Results - last 48 hr 09/30/22 09/30/22 09/30/22 17:12 17:12 17:12 WBC 4.37 L RBC 3.08 L Hgb 11.1 L Hct 30.6 L MCV 99.4 MCH 36.0 H MCHC 36.3 H RDW Std Deviation 53.1 H RDW Coeff of Arturo 14.6 H Plt Count 98 L MPV 9.9 Immature Gran % (Auto) 0.2 Neut % (Auto) 82.4 Lymph % (Auto) 8.0 Morrow % (Auto) 8.7 Eos % (Auto) 0.2 Baso % (Auto) 0.5 Neut # (Auto) 3.60 Lymph # (Auto) 0.35 L [place] # (Auto) 0.38 Eos # (Auto) 0.01 Baso # (Auto) 0.02 Immature Gran # (Auto) 0.01 PT INR APTT PTT Ratio Sodium 135 L Potassium 4.0 Chloride 105 Carbon Dioxide 18 L Anion Gap 12 H BUN 8 Creatinine 0.51 L Est Cr Clr Drug Dosing 160.1 Est GFR ( Amer) 143.2 Est GFR (Non-Af Amer) 123.6 BUN/Creatinine Ratio 15.7 Glucose 179 H Osmolality Calcium 8.4 L Magnesium 1.2 L Total Bilirubin 0.7 AST 103 H ALT 33 Alkaline Phosphatase 157 H Total Creatine Kinase 53 Troponin I High Sens 5.6 Total Protein 6.8 Albumin 3.3 L Globulin 3.5 Albumin/Globulin Ratio 0.9 Lipase 66 Urine Color Urine Appearance Urine pH Ur Specific [place] Urine Protein Urine Glucose (UA) Urine Ketones Urine Blood Urine Nitrite Urine Bilirubin Urine Urobilinogen Ur Leukocyte Esterase Urine WBC (Auto) Urine RBC (Auto) U Hyaline Cast (Auto) U Epithel Cells (Auto) Urine Bacteria (Auto) Salicylates Urine Opiates Screen Ur Methadone, Qual Acetaminophen Urine Barbiturates Ur Phencyclidine (PCP) U Amphetamin/Meth Scrn MDMA (Ecstasy) Screen U Benzodiazepines Scrn Ur Cocaine Metabolite U Marijuana (THC) Screen Ethyl Alcohol mg/dL 208.3 H SARS-CoV-2, RNA, NAAT 09/30/22 09/30/22 09/30/22 17:12 17:12 17:12 WBC RBC Hgb Hct MCV MCH MCHC RDW Std Deviation RDW Coeff of Arturo Plt Count MPV Immature Gran % (Auto) Neut % (Auto) Lymph % (Auto) [place] % (Auto) Eos % (Auto) Baso % (Auto) Neut # (Auto) Lymph # (Auto) [place] # (Auto) Eos # (Auto) Baso # (Auto) Immature Gran # (Auto) PT 12.7 H INR 1.2 H APTT 26.2 PTT Ratio 0.9 Sodium Potassium Chloride Carbon Dioxide Anion Gap BUN Creatinine Est Cr Clr Drug Dosing Est GFR ( Amer) Est GFR (Non-Af Amer) BUN/Creatinine Ratio Glucose Osmolality 341 H Calcium Magnesium Total Bilirubin AST ALT Alkaline Phosphatase Total Creatine Kinase Troponin I High Sens Total Protein Albumin Globulin Albumin/Globulin Ratio Lipase Urine Color Urine Appearance Urine pH Ur Specific [place] Urine Protein Urine Glucose (UA) Urine Ketones Urine Blood Urine Nitrite Urine Bilirubin Urine Urobilinogen Ur Leukocyte Esterase Urine WBC (Auto) Urine RBC (Auto) U Hyaline Cast (Auto) U Epithel Cells (Auto) Urine Bacteria (Auto) Salicylates < 3.0 L Urine Opiates Screen Ur Methadone, Qual Acetaminophen < 3 L Urine Barbiturates Ur Phencyclidine (PCP) U Amphetamin/Meth Scrn MDMA (Ecstasy) Screen U Benzodiazepines Scrn Ur Cocaine Metabolite U Marijuana (THC) Screen Ethyl Alcohol mg/dL SARS-CoV-2, RNA, NAAT 09/30/22 09/30/22 09/30/22 17:37 17:37 19:30 WBC RBC Hgb Hct MCV MCH MCHC RDW Std Deviation RDW Coeff of Arturo Plt Count MPV Immature Gran % (Auto) Neut % (Auto) Lymph % (Auto) [place] % (Auto) Eos % (Auto) Baso % (Auto) Neut # (Auto) Lymph # (Auto) [place] # (Auto) Eos # (Auto) Baso # (Auto) Immature Gran # (Auto) PT INR APTT PTT Ratio Sodium Potassium Chloride Carbon Dioxide Anion Gap BUN Creatinine Est Cr Clr Drug Dosing Est GFR ( Amer) Est GFR (Non-Af Amer) BUN/Creatinine Ratio Glucose Osmolality Calcium Magnesium Total Bilirubin AST ALT Alkaline Phosphatase Total Creatine Kinase Troponin I High Sens Total Protein Albumin Globulin Albumin/Globulin Ratio Lipase Urine Color Dark Yellow Urine Appearance Clear Urine pH 6.5 Ur Specific [place] 1.012 Urine Protein 1+ H Urine Glucose (UA) Negative Urine Ketones 1+ H Urine Blood Negative Urine Nitrite Negative Urine Bilirubin Negative Urine Urobilinogen Negative Ur Leukocyte Esterase Negative Urine WBC (Auto) 1-5 Urine RBC (Auto) 0-4 U Hyaline Cast (Auto) 5-10 H U Epithel Cells (Auto) 10-20 H Urine Bacteria (Auto) Negative Salicylates Urine Opiates Screen Neg Ur Methadone, Qual Neg Acetaminophen Urine Barbiturates Neg Ur Phencyclidine (PCP) Neg U Amphetamin/Meth Scrn Neg MDMA (Ecstasy) Screen Neg U Benzodiazepines Scrn Neg Ur Cocaine Metabolite Neg U Marijuana (THC) Screen Neg Ethyl Alcohol mg/dL SARS-CoV-2, RNA, NAAT NEGATIVE 10/01/22 10/01/22 10/01/22 06:24 06:24 06:24 WBC 3.50 L RBC 2.91 L Hgb 10.3 L Hct 29.2 L MCV 100.3 H MCH 35.4 H MCHC 35.3 RDW Std Deviation 54.4 H RDW Coeff of Arturo 14.7 H Plt Count 79 L MPV 10.7 Immature Gran % (Auto) 0.0 Neut % (Auto) 57.1 Lymph % (Auto) 29.7 [place] % (Auto) 9.7 Eos % (Auto) 2.9 Baso % (Auto) 0.6 Neut # (Auto) 2.00 Lymph # (Auto) 1.04 L [place] # (Auto) 0.34 Eos # (Auto) 0.10 Baso # (Auto) 0.02 Immature Gran # (Auto) 0.00 L PT 12.4 H INR 1.1 APTT PTT Ratio Sodium 139 Potassium 4.4 Chloride 108 H Carbon Dioxide 22 Anion Gap 9 BUN 7 Creatinine 0.46 L Est Cr Clr Drug Dosing 272.6 Est GFR ( Amer) 149.4 Est GFR (Non-Af Amer) 128.9 BUN/Creatinine Ratio 15.2 Glucose 81 Osmolality Calcium 7.8 L Magnesium 1.9 Total Bilirubin 0.9 AST 65 H ALT 25 Alkaline Phosphatase 133 H Total Creatine Kinase Troponin I High Sens Total Protein 6.1 Albumin 2.9 L Globulin 3.2 Albumin/Globulin Ratio 0.9 Lipase Urine Color Urine Appearance Urine pH Ur Specific [place] Urine Protein Urine Glucose (UA) Urine Ketones Urine Blood Urine Nitrite Urine Bilirubin Urine Urobilinogen Ur Leukocyte Esterase Urine WBC (Auto) Urine RBC (Auto) U Hyaline Cast (Auto) U Epithel Cells (Auto) Urine Bacteria (Auto) Salicylates Urine Opiates Screen Ur Methadone, Qual Acetaminophen Urine Barbiturates Ur Phencyclidine (PCP) U Amphetamin/Meth Scrn MDMA (Ecstasy) Screen U Benzodiazepines Scrn Ur Cocaine Metabolite U Marijuana (THC) Screen Ethyl Alcohol mg/dL SARS-CoV-2, RNA, NAAT PG Care Time/CCT Total # of Minutes Spent Total Time Spent with Patient: Total time spent is greater than 50% in coordination of care (as documented) at patient's floor/unit and/or counseling patient: Coding Level of Care Code 28332 SUB INP/OBS CARE 2/35MIN Diagnoses Alcohol withdrawal F10.939 Weakness R53.1 Hypomagnesemia E83.42 Pancytopenia D61.818 Hypertension I10 Tobacco use disorder F17.200
[2022-10-01] MEDS: NICOTINE 21 MG/24 HR TDSY TD SCH (21:01)
[2022-10-01] MEDS: traZODone HCL 50 MG TAB PO SCH (21:01)
--- NOTE | 2022-10-01 21:36 | XCELERA ---
[id number]
[2022-10-01] MEDS ORDERED: IBUPROFEN 600 MG TAB PO PRN (23:58)
[2022-10-02] MEDS: THIAMINE HCL 500 MG in SODIUM CHLORIDE 0.9% 50 ML IV SCH ×3 (00:48→17:18)
[2022-10-02] MEDS: chlordiazePOXIDE HCl 25 MG CAP PO SCH ×3 (02:09→17:17)
--- NOTE | 2022-10-02 03:07 | Billing Data ---
Date of Service October 02, 2022 Coding Level of Care Code 75790 INT INP/OBS CARE
[2022-10-02 06:49] LABS: Basophils # (auto) 0.01 K/uL (0-0.2); Basophils % (auto) 0.3 %; Eosinophils # (auto) 0.09 K/uL (0-0.50); Eosinophils % (auto) 2.5 %; Hematocrit (blood only) 29.6 % (42.0-52.0); Hemoglobin 10.5 g/dl (14.0-18.0); Immature Granulocytes # (auto) 0.01 K/uL (0.01-0.20); Immature Granulocytes % (auto) 0.3 %; Lymphocytes # (auto) 1.08 K/uL (1.2-3.4); Mean Corpuscular Hemoglobin 35.8 pg (25.0-34.0); Mean Corpuscular Hgb Conc 35.5 g/dL (32.0-36.0); Mean Platelet Volume 10.5 fL (9.4-12.4); Monocytes # (auto) 0.32 K/uL (0.11-0.59); Monocytes % (auto) 8.9 %; Neutrophils # (auto) 2.09 K/uL (1.40-6.50); Platelet Count 79 K/uL (130-400); RDW Coefficient of Variation 14.3 % (11.5-14.5); Red Blood Count 2.93 M/uL (4.70-6.10)
[2022-10-02 06:53] LABS: Alanine Aminotransferase 21 U/L (7-52); Albumin Globulin Ratio 0.9 (0.9-2); Albumin Level 2.8 gm/dl (3.4-5.0); Alkaline Phosphatase 126 U/L (34-104); Anion Gap 4 (3-11); Aspartate Aminotransferase 48 U/L (13-39); BUN Creatinine Ratio 11.6 (10-20); Bilirubin,Total 0.8 mg/dl (0.2-1.0); Blood Urea Nitrogen 5 mg/dl (6-23); Calcium 8.2 mg/dl (8.6-10.3); Carbon Dioxide 25 mmol/L (21-32); Chloride 109 mmol/L (98-107); Creatinine Clr Calc Pharmacy 189.3 ml/min; Est GFR (African American) > 150.0 ml/min; Est GFR (Non-African American) 132.6 ml/min; Glucose 91 mg/dl (70-99(Fasting)); Sodium 138 mmol/L (136-145); Total Protein 5.8 gm/dl (6.0-8.3)
[2022-10-02] MEDS: busPIRone 5 MG TAB PO SCH ×2 (07:54→20:39)
[2022-10-02] MEDS: PANTOprazole 40 MG TAB PO SCH ×2 (07:54→20:38)
[2022-10-02] MEDS: MAGNESIUM OXIDE 400 MG TAB PO SCH (07:54)
[2022-10-02] MEDS: FOLIC ACID 1 MG TAB PO SCH (07:54)
[2022-10-02] MEDS: FLUoxetine HCL 20 MG CAP PO SCH (07:57)
[2022-10-02] MEDS: NICOTINE 21 MG/24 HR TDSY TD SCH (07:58)
[2022-10-02] MEDS: METOPROLOL SUCC 25MG EXT REL TAB PO SCH (07:59)
[2022-10-02] MEDS: ENOXAPARIN INJ 40 MG/0.4 ML SYR SQ SCH (11:24)
--- NOTE | 2022-10-02 14:09 | Magnetic Resonance Report ---
MRI OF THE LUMBAR SPINE WITHOUT IV CONTRAST CLINICAL HISTORY: Low back pain. Bilateral leg weakness. COMPARISON STUDY: MRI of the lumbar spine dated 12/06/2018. Abdominal CT dated 04/23/2022. TECHNIQUE: MRI of the lumbar spine was performed utilizing various T1 and T2 weighted sequences in th e axial and sagittal planes. IV contrast was not administered for this examination. The examination i s modestly degraded by motion artifact. FINDINGS: Lumbar spine: Vertebral body height is maintained throughout the lumbar spine. There is minimal anter olisthesis at L4-L5. Alignment is otherwise preserved. Anterior and lateral marginal osteophytes are seen throughout. There is no evidence of spondylolysis. The transverse and spinous processes appear i ntact. Chronic degenerative endplate changes seen at several levels. There is no significant endplate edema. Intervertebral discs: Disc desiccation and loss of height is seen at L4-L5 and L5-S1. The remaining d iscs are normal in height and signal intensity. Spinal cord: The visualized spinal cord is normal in morphology and signal intensity. The conus medul jordi terminates at the L1-L2 interspace. The nerve roots of the cauda equina are normal in morpholog y. L1-L2: Facet arthropathy is of no consequence. The central canal and neural foramina are patent. L2-L3: The central canal and neural foramina are patent. L3-L4: There is minimal posterior disc bulge. This abuts the transiting nerve roots. There is no sign ificantly acquired compromise of the central canal. Lateral disc bulges contribute to mild bilateral subarticular stenosis, left greater than right. In conjunction with facet arthropathy, there is minim al bilateral neural foraminal narrowing. L4-L5: There is broad-based posterior disc bulge. This impinges in the transiting nerve roots and may tether the cauda equina at this level. In conjunction with anterolisthesis, there is moderate centra l canal stenosis at this level with a minimum AP diameter of 6 mm. Lateral disc bulges contribute to bilateral subarticular stenosis and likely impinge in the exiting bilateral L4 nerve roots. In conjun ction with facet arthropathy, there is moderate to severe bilateral neural foraminal stenosis at this level, right greater than left. L5-S1: There is broad-based posterior disc bulge. This abuts the transiting nerve roots. There is min imal inferior central disc extrusion, seen on axial image #7. Lateral disc bulges contribute to bilat eral subarticular stenosis, right greater than left. This may impinge in the exiting right L5 nerve r oot. In conjunction with facet arthropathy, there is moderate to severe right and mild to moderate le ft neural foraminal stenosis. Sacrum: The visualized sacrum is normal in morphology and signal intensity. Soft tissues: The paraspinous soft tissues are normal in appearance. The retroperitoneal structures a re grossly unremarkable but incompletely evaluated. IMPRESSION: 1. Lumbosacral spondylosis as above, greatest at L4-L5 where there is anterolisthesis and moderate ce ntral canal stenosis. See discussion for detailed level by level analysis. 2. No destructive bony process is seen. Dictated: 10/02/2022 11:11 AM Transcribed: 10/02/2022 12:19 PM Juanita [id number] [email or web address] [id number] Electronically signed by: Mario Colindres M.D. 10/02/2022 2:06 PM
[2022-10-02] MEDS: SUCRALFATE 1 GM/10 ML UDC PO SCH ×2 (17:17→20:38)
[2022-10-02 17:41] LABS: Lipase 89 U/L (11-82); Magnesium 1.7 mg/dl (1.7-2.4)
--- NOTE | 2022-10-02 20:30 | Hospitalist Progress Note ---
Date of Service October 02, 2022 Assessment & Plan (1) Alcohol withdrawal: Plan: active etoh withdrawal stable ; no signs of DTs cont librium taper ativan prn per AWSS protocol cont thiamine 500mg IV TID x 2 days, then 200mg BID thereafter cont folic acid 1mg daily add MVI cont telemetry supportive care adding IVF today (2) Weakness: Plan: multifactorial - low mag (was severe at presentation), deconditioning, has baseline neuropathy of legs (etoh induced?), has MRI confirmed lumbar spinal stenosis and foraminal stenosis (see below) PT, OT evals ortho-spine consultation with Dr Kim for his abnormal MRI l-spine, LE weakness, etc (3) Hypomagnesemia: Plan: severe likely contributed to weakness improved s/p replacement mag 1.7 today low mag 2nd to etoh abuse (4) Pancytopenia: Plan: 2nd to alcohol and bone marrow suppression from such TSH wnl B12 level 07/2022 wnl Folate level 07/2022 wnl CBC again stable today (5) Hypertension: Plan: cont metoprolol succ 25mg daily titrate as needed (6) Tobacco use disorder: Plan: cont nicoderm patch 21mg/day (7) Spinal stenosis at L4-L5 level: Plan: MRI lumbar spine obtained today due to prior MRI showing significant disease and his ongoing b/l LE weakness, falls, neuropathy, ?bowel incontinence, etc. results as follows -- "L4-L5: There is broad-based posterior disc bulge. This impinges in the transiting nerve roots and may tether the cauda equina at this level. In conjunction with anterolisthesis, there is moderate central canal stenosis at this level with a minimum AP diameter of 6 mm. Lateral disc bulges contribute to bilateral subarticular stenosis and likely impinge in the exiting bilateral L4 nerve roots. In conjunction with facet arthropathy, there is moderate to severe bilateral neural foraminal stenosis at this level, right greater than left. L5-S1: There is broad-based posterior disc bulge. This abuts the transiting nerve roots. There is minimal inferior central disc extrusion, seen on axial image #7. Lateral disc bulges contribute to bilateral subarticular stenosis, right greater than left. This may impinge in the exiting right L5 nerve root. In conjunction with facet arthropathy, there is moderate to severe right and mild to moderate left neural foraminal stenosis." I spoke directly today to Dr Albert Kim from ortho-spine, U he will see patient in consultation tomorrow I am quite concerned his structural lumbar spine disease is contributing heavily to his b/l leg symptoms pt counseled re: MRI findings today (8) Tethering of spinal cord: Plan: QUESTION OF MRI l-spine today with possible L4-L5 tethering of the cauda equina spoke to Dr Kim re: this possible finding (9) Elevated lipase: Plan: minimal elevation today cannot rule out a mild alcoholic pancreatitis downgrade diet to clears since his pain is worsened by eating LR at 125cc/hr repeat lipase am consider CT a/p if symptoms (abd pain, etc) worsen (10) Abdominal pain: Plan: suspect alcoholic gastritis (could even have PUD - in addition to etoh he takes motrin at home for pain) +/- mild pancreatitis increase PPI to BID dosing add carafate 1gm QID Treat #9 clears IV fluids stop motrin Plan DVT proph - lovenox 40mg daily sister updated at bedside appreciate Dr Kim's consultation Admission and Anticipated Discharge Date Admission Date: September 30, 2022 Subjective patient reports his tremors are better today eating is fair he does mention that when he eats it causes abdominal pain the pain is in the high epigastric region last pm he had pain that started late in the evening and lasted a few hours took motrin - pain didn't resolve as he woke up with it this am no vomiting some nausea with respect to back pain/b/l leg weakness- has numbness from the knees down to his feet the legs feel weak from the knees downward he has had falls at home he denies urinary incontinence, but did have fecal incontinence a couple of times last week pt's sister was at bedside during the visit multiple questions answered tele overnight wnl Review of Systems Review of Systems: gen - no fevers cv - no chest pain pulm - no dyspnea GI - see subjective portion of note; has had pancreatitis in the past; has never had EGD to his knowledge - no incontinence Physical Exam Physical Exam: gen - mild tremors noted, NAD mouth - MMM neck - no JVD heart - RRR, s1 s2, no murmur lungs - CTA b/l abd - soft ND BS+; liver edge palpable; tender epigastric region; no peritoneal signs ext - no edema, pulses 2+ b/l psych - a/o x 3 neuro - mild tremors present; motor exam - reflexes are brisk 3+ patellar b/l; 0 achilles reflexes b/l; sensation intact b/l LEs; strength with quads extension 4/5 b/l; ankle dorsiflexion/plantarflexion about 4-5/5 b/l; hip flexion 4-5/5 b/l; arm strength 5/5 psych - flat affect but a/o x 3 Results & Data Results & Data Vital Signs (Past 12 Hours) Vital Signs Temp Pulse Resp BP Pulse Ox O2 Del Method 10/02/22 19:00 36.7 C 72 18 115/77 97 Room Air 10/02/22 15:59 36.7 C 79 20 114/76 100 Room Air 10/02/22 11:52 36.5 C 95 H 18 108/76 100 Room Air Laboratory Results Laboratory Results - last 24 hr 10/02/22 10/02/22 06:19 06:19 WBC 3.60 L RBC 2.93 L Hgb 10.5 L Hct 29.6 L MCV 101.0 H MCH 35.8 H MCHC 35.5 RDW Std Deviation 53.0 H RDW Coeff of Arturo 14.3 Plt Count 79 L MPV 10.5 Immature Gran % (Auto) 0.3 Neut % (Auto) 58.0 Lymph % (Auto) 30.0 Gilliam % (Auto) 8.9 Eos % (Auto) 2.5 Baso % (Auto) 0.3 Neut # (Auto) 2.09 Lymph # (Auto) 1.08 L Gilliam # (Auto) 0.32 Eos # (Auto) 0.09 Baso # (Auto) 0.01 Immature Gran # (Auto) 0.01 Sodium 138 Potassium 4.0 Chloride 109 H Carbon Dioxide 25 Anion Gap 4 BUN 5 L Creatinine 0.43 L Est Cr Clr Drug Dosing 189.3 Est GFR ( Amer) > 150.0 Est GFR (Non-Af Amer) 132.6 BUN/Creatinine Ratio 11.6 Glucose 91 Calcium 8.2 L Magnesium 1.7 Total Bilirubin 0.8 AST 48 H ALT 21 Alkaline Phosphatase 126 H Total Protein 5.8 L Albumin 2.8 L Globulin 3.0 Albumin/Globulin Ratio 0.9 Lipase 89 H Diagnostic Findings Lumbar Spine MRI 10/02/22 08:36 MRI OF THE LUMBAR SPINE WITHOUT IV CONTRAST CLINICAL HISTORY: Low back pain. Bilateral leg weakness. COMPARISON STUDY: MRI of the lumbar spine dated 12/06/2018. Abdominal CT dated 04/23/2022. TECHNIQUE: MRI of the lumbar spine was performed utilizing various T1 and T2 weighted sequences in the axial and sagittal planes. IV contrast was not administered for this examination. The examination is modestly degraded by motion artifact. FINDINGS: Lumbar spine: Vertebral body height is maintained throughout the lumbar spine. There is minimal anterolisthesis at L4-L5. Alignment is otherwise preserved. Anterior and lateral marginal osteophytes are seen throughout. There is no evidence of spondylolysis. The transverse and spinous processes appear intact. Chronic degenerative endplate changes seen at several levels. There is no significant endplate edema. Intervertebral discs: Disc desiccation and loss of height is seen at L4-L5 and L5-S1. The remaining discs are normal in height and signal intensity. Spinal cord: The visualized spinal cord is normal in morphology and signal intensity. The conus medullaris terminates at the L1-L2 interspace. The nerve roots of the cauda equina are normal in morphology. L1-L2: Facet arthropathy is of no consequence. The central canal and neural foramina are patent. L2-L3: The central canal and neural foramina are patent. L3-L4: There is minimal posterior disc bulge. This abuts the transiting nerve roots. There is no significantly acquired compromise of the central canal. Lateral disc bulges contribute to mild bilateral subarticular stenosis, left greater than right. In conjunction with facet arthropathy, there is minimal bilateral neural foraminal narrowing. L4-L5: There is broad-based posterior disc bulge. This impinges in the transiting nerve roots and may tether the cauda equina at this level. In conjunction with anterolisthesis, there is moderate central canal stenosis at this level with a minimum AP diameter of 6 mm. Lateral disc bulges contribute to bilateral subarticular stenosis and likely impinge in the exiting bilateral L4 nerve roots. In conjunction with facet arthropathy, there is moderate to severe bilateral neural foraminal stenosis at this level, right greater than left. L5-S1: There is broad-based posterior disc bulge. This abuts the transiting nerve roots. There is minimal inferior central disc extrusion, seen on axial image #7. Lateral disc bulges contribute to bilateral subarticular stenosis, right greater than left. This may impinge in the exiting right L5 nerve root. In conjunction with facet arthropathy, there is moderate to severe right and mild to moderate left neural foraminal stenosis. Sacrum: The visualized sacrum is normal in morphology and signal intensity. Soft tissues: The paraspinous soft tissues are normal in appearance. The retroperitoneal structures are grossly unremarkable but incompletely evaluated. IMPRESSION: 1. Lumbosacral spondylosis as above, greatest at L4-L5 where there is anterolisthesis and moderate central canal stenosis. See discussion for detailed level by level analysis. 2. No destructive bony process is seen. Dictated: 10/02/2022 11:11 AM Transcribed: 10/02/2022 12:19 PM Juanita [id number] [email or web address] [id number] Electronically signed by: Mario Colindres M.D. 10/02/2022 2:06 PM PG Care Time/CCT Total # of Minutes Spent Total Time Spent with Patient: Total time spent is greater than 50% in coordination of care (as documented) at patient's floor/unit and/or counseling patient: Coding Level of Care Code 65765 SUB INP/OBS CARE 3/50MIN Diagnoses Alcohol withdrawal F10.939 Weakness R53.1 Hypomagnesemia E83.42 Pancytopenia D61.818 Hypertension I10 Tobacco use disorder F17.200 Spinal stenosis at L4-L5 level M48.061 Tethering of spinal cord Q06.8 Elevated lipase R74.8 Abdominal pain R10.9
[2022-10-02] MEDS: LACTATED RINGER'S 1,000 ML IV SCH (20:32)
[2022-10-02] MEDS: traZODone HCL 50 MG TAB PO SCH (20:39)
[2022-10-02] MEDS: ACETAMINOPHEN 325 MG TAB PO PRN (20:41)
[2022-10-02] MEDS ORDERED: hydrOXYzine HCl 25 MG TAB PO STA (21:13)
[2022-10-03] MEDS: LACTATED RINGER'S 1,000 ML IV SCH ×3 (02:25→17:42)
[2022-10-03] MEDS: THIAMINE HCL 500 MG in SODIUM CHLORIDE 0.9% 50 ML IV SCH ×3 (02:25→17:42)
[2022-10-03 07:05] LABS: Basophils # (auto) 0.01 K/uL (0-0.2); Basophils % (auto) 0.3 %; Eosinophils # (auto) 0.12 K/uL (0-0.50); Eosinophils % (auto) 3.8 %; Hematocrit (blood only) 27.4 % (42.0-52.0); Hemoglobin 9.8 g/dl (14.0-18.0); Immature Granulocytes # (auto) 0.01 K/uL (0.01-0.20); Immature Granulocytes % (auto) 0.3 %; Lymphocytes # (auto) 1.18 K/uL (1.2-3.4); Lymphocytes % (auto) 36.9 %; Mean Corpuscular Hemoglobin 36.4 pg (25.0-34.0); Mean Corpuscular Hgb Conc 35.8 g/dL (32.0-36.0); Mean Corpuscular Volume 101.9 fL (80.0-100.0); Mean Platelet Volume 11.1 fL (9.4-12.4); Monocytes # (auto) 0.34 K/uL (0.11-0.59); Monocytes % (auto) 10.6 %; Neutrophils # (auto) 1.54 K/uL (1.40-6.50); Neutrophils % (auto) 48.1 %; Platelet Count 78 K/uL (130-400); RDW Coefficient of Variation 14.5 % (11.5-14.5); RDW Standard Deviation 53.9 fL (36.4-46.3); Red Blood Count 2.69 M/uL (4.70-6.10)
[2022-10-03 07:21] LABS: Anion Gap 2 (3-11); BUN Creatinine Ratio 12.2 (10-20); Blood Urea Nitrogen 5 mg/dl (6-23); Carbon Dioxide 25 mmol/L (21-32); Chloride 111 mmol/L (98-107); Creatinine Clr Calc Pharmacy 202.4 ml/min; Est GFR (African American) > 150.0 ml/min; Est GFR (Non-African American) 135.2 ml/min; Glucose 95 mg/dl (70-99(Fasting)); Lipase 48 U/L (11-82); Potassium 3.8 mmol/L (3.5-5.1); Sodium 138 mmol/L (136-145)
--- NOTE | 2022-10-03 07:39 | Electrocardiogram Report ---
Test Reason : Blood Pressure : / mmHG Vent. Rate : 088 BPM Atrial Rate : 088 BPM P-R Int : 142 ms QRS Dur : 086 ms QT Int : 372 ms P-R-T Axes : 004 -13 065 degrees QTc Int : 450 ms Normal sinus rhythm Abnormal ECG When compared with ECG of 11-JUL-2022 20:06, Questionable change in QRS duration Confirmed by Demetrius Juarez ([id number]) on 10/03/2022 7:39:39 AM Referred By: REFERRED SELF Confirmed By:Demetrius Juarez
[2022-10-03] MEDS: SUCRALFATE 1 GM/10 ML UDC PO SCH ×4 (08:12→20:33)
[2022-10-03] MEDS: NICOTINE 21 MG/24 HR TDSY TD SCH (08:12)
[2022-10-03] MEDS: FLUoxetine HCL 20 MG CAP PO SCH (08:13)
[2022-10-03] MEDS: busPIRone 5 MG TAB PO SCH ×2 (08:13→20:33)
[2022-10-03] MEDS: PANTOprazole 40 MG TAB PO SCH ×2 (08:13→20:33)
[2022-10-03] MEDS: FOLIC ACID 1 MG TAB PO SCH (08:14)
[2022-10-03] MEDS: METOPROLOL SUCC 25MG EXT REL TAB PO SCH (08:15)
[2022-10-03] MEDS: MAGNESIUM OXIDE 400 MG TAB PO SCH (08:15)
--- NOTE | 2022-10-03 08:15 | Electrocardiogram Report ---
Test Reason : Blood Pressure : / mmHG Vent. Rate : 078 BPM Atrial Rate : 078 BPM P-R Int : 142 ms QRS Dur : 092 ms QT Int : 440 ms P-R-T Axes : 020 007 046 degrees QTc Int : 502 ms Normal sinus rhythm Prolonged QT Abnormal ECG When compared with ECG of 30-SEP-2022 17:57, (unconfirmed) Nonspecific T wave abnormality no longer evident in Inferior leads T wave inversion no longer evident in Anterior leads QT has lengthened Confirmed by Demetrius Juarez ([id number]) on 10/03/2022 8:15:19 AM Referred By: REFERRED SELF Confirmed By:Demetrius Juarez
[2022-10-03] MEDS: ENOXAPARIN INJ 40 MG/0.4 ML SYR SQ SCH (10:03)
[2022-10-03] MEDS: CEROVITE ADV FORMULA TAB PO SCH (10:03)
--- NOTE | 2022-10-03 14:20 | Orthopedic Consultation ---
Date of Consultation October 03, 2022 Assessment & Plan (1) Neurogenic claudication due to lumbar spinal stenosis: Assessment lumbar spinal stenosis with spondylolisthesis L4-5. Plan I had discussion with this patient reviewing his MRI findings clinical presentation and treatment options. At this point he is experiencing some evidence of neurogenic claudication. Hemocyte likely has a component of peripheral neuropathy as well. I explained the patient that surgery be quite extensive in nature requiring a lumbar decompression and fusion L4-S1. He is currently not a candidate for surgery in light of his malnutrition and alcohol abuse. Request that he be sober for a minimum of 3 ideally 6 months prior to undergoing such procedure. Patient stands and agrees. History of Present Illness Reason for Consultation: Back and bilateral leg pain Attending Physician: Cholo Call MD History of Present Illness This is a 51-year-old male who presents with multiple medical issues including alcoholism that has a history of leg numbness and weakness. Imaging demonstrates evidence of severe spinal stenosis. He states he has had the symptoms for years he has numbness tingling prickly lower extremities and feet. It does not but his ability to stand or walk any distance. He is currently not working at this time. Denies any significant pain at this time. He has been undergoing therapy in the hospital with the use of a walker. Allergies Allergy/AdvReac Type Severity Reaction Status Date / Time No Known Allergies Allergy Verified 09/30/22 20:03 Home Medications Medication Instructions Recorded Confirmed Type multivitamin 1 tab PO DAILY 08/13/21 09/30/22 History thiamine HCl (vitamin B1) 100 mg 100 mg PO QAM #30 tabs 06/14/22 09/30/22 Rx tablet folic acid 1 mg tablet 1 mg PO DAILY 07/11/22 09/30/22 History buspirone 10 mg tablet 10 mg PO BID #180 tabs 07/18/22 09/30/22 Rx metoprolol succinate 25 mg 25 mg PO DAILY #90 tabs 07/18/22 09/30/22 Rx tablet,extended release 24 hr calcium carbonate 600 mg-vitamin 1 cap PO DAILY #1 cap 07/25/22 09/30/22 Rx D3 25 mcg (1,000 unit) capsule magnesium oxide 400 mg PO DAILY #30 caps 08/04/22 09/30/22 Rx pantoprazole 40 mg tablet,delayed 40 mg PO DAILY #90 tabs 09/27/22 09/30/22 Rx release fluoxetine 40 mg capsule 40 mg PO DAILY 09/30/22 09/30/22 History trazodone 50 mg tablet 50 mg PO HS 09/30/22 09/30/22 History Patient History Medical History Acute blood loss anemia Alcohol intoxication Alcohol withdrawal 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 Chronic alcohol use GI bleed Hypertension Hypertensive urgency Hypokalemia Hyponatremia Left foot drop Metabolic acidosis Nausea Pancreatitis Sensory polyneuropathy Smokes 1 pack of cigarettes per day Surgical History No pertinent past surgical history Family History Other Adopted Social History Smoking Status: Current every day smoker Tobacco Type: Cigarettes packs per day: 1; Cigarettes Per Day: pack/day; Second Hand Exposure: No; Do You Dip or Chew Tobacco: No; Tobacco Cessation Education Requested by Patient: No Hx Alcohol Use: Yes Alcohol type: beer and hard liquor Alcohol Intake Frequency Comment: 1/2 to one 5th of vodka daily, some beer Hx Substance Use: No Preferred Language: [place] Communication Ability: Effective Visual Impairment: No Limitations Hearing Ability: Normal Safety Equipment Tester Required: No Beliefs That Will Affect Care: None marital status: Single Current Living Situation: Alone current occupational status: previously employed current occupation: Recently lost job working in an [employer] service How many Children do You have: 0 Other Information That Helps Us Care for You: No Feels Safe at Home: Yes Safety Concerns: Feels Safe At This Time Childhood Exposure to Second-Hand Smoke: Yes Diet: regular Dental Care, Regularly: No Physical Activity Frequency: Does not Exercise Seatbelt Use: always Sunscreen Use: No Assistive Devices: None Physical Exam Physical Exam: On exam he has 4+ or 5 plantarflexion dorsiflexion quadriceps. Decreased sensation bilaterally. He is able to sit up without evident evidence of discomfort. Results & Data Vital Signs (Past 12 Hours) Vital Signs Temp Pulse Pulse Pulse Resp BP Pulse Ox 10/03/22 11:29 36.7 C 79 18 116/82 98 10/03/22 08:15 36.6 C 71 18 120/78 99 10/03/22 03:00 36.8 C 72 18 129/86 98 10/03/22 02:36 66 O2 Del Method 10/03/22 11:29 Room Air 10/03/22 08:15 Room Air 10/03/22 03:00 Room Air 10/03/22 02:36
--- NOTE | 2022-10-03 14:55 | Hospitalist Progress Note ---
Date of Service October 03, 2022 Assessment & Plan (1) Alcohol withdrawal: Plan: still some mild tremors on exam cont librium taper ativan prn per AWSS protocol cont thiamine 500mg IV TID x 2 days, then 200mg BID thereafter cont folic acid 1mg daily add MVI (2) Spinal stenosis at L4-L5 level: Plan: MRI lumbar spine obtained due to prior MRI showing significant disease and his ongoing b/l LE weakness, falls, neuropathy Shows "L4-L5: There is broad-based posterior disc bulge. This impinges in the transiting nerve roots and may tether the cauda equina at this level. In conjunction with anterolisthesis, there is moderate central canal stenosis at this level with a minimum AP diameter of 6 mm. Lateral disc bulges contribute to bilateral subarticular stenosis and likely impinge in the exiting bilateral L4 nerve roots. In conjunction with facet arthropathy, there is moderate to severe bilateral neural foraminal stenosis at this level, right greater than left. L5-S1: There is broad-based posterior disc bulge. This abuts the transiting nerve roots. There is minimal inferior central disc extrusion, seen on axial image #7. Lateral disc bulges contribute to bilateral subarticular stenosis, right greater than left. This may impinge in the exiting right L5 nerve root. In conjunction with facet arthropathy, there is moderate to severe right and mild to moderate left neural foraminal stenosis." Ortho spine on consult, appreciate recs Due to his alcohol abuse, patient not a candidate for surgery he will need at least 3 months of abstinence and also optimized nutrition before he would be considered for surgery (3) Weakness: Plan: Lower extremity weakness largeley due to lumbar spinal stenosis as seen on MRI (4) Hypomagnesemia: Plan: Replace (5) Pancytopenia: Plan: 2nd to alcohol and bone marrow suppression from such TSH wnl B12 level 07/2022 wnl Folate level 07/2022 wnl CBC again stable today (6) Hypertension: Plan: cont metoprolol succ 25mg daily titrate as needed (7) Tobacco use disorder: Plan: cont nicoderm patch 21mg/day (8) Tethering of spinal cord: Plan: Spine ortho on consult (9) Elevated lipase: Plan: Mild pancreatitis due to alcohol use (10) Abdominal pain: Plan: suspect alcoholic gastritis (could even have PUD - in addition to etoh he takes motrin at home for pain) +/- mild pancreatitis increase PPI to BID dosing add carafate 1gm QID avoid nsaids Plan hopefully d/c in the next 24 hrs, patient may benefit from rehab Admission and Anticipated Discharge Date Admission Date: September 30, 2022 Subjective patient seen and examined, still has some lower extremity weakness, but his tremors have improved Review of Systems Review of Systems: All systems reviewed are negative, apart from the ones contained in the history. Physical Exam Physical Exam: The patient is awake, alert and oriented 3, well developed and well nourished, normocephalic and atraumatic, lying in bed and in no acute distress. HEENT--PERRL, EOMI, mucous membranes and oropharynx mildly dry Neck--supple. No JVD. No bruits. Thyroid normal, trachea midline, no adenopathy. Heart--normal S1 and S2. No murmurs, rubs or gallops. Lungs--clear bilaterally, no respiratory distress, no accessory muscle use. Abdomen--normal bowel sounds and soft. Mild epigastric and left sided abdominal pain Extremities--no cyanosis or clubbing. No edema. Dermatologic--normal skin turgor, normal color, no abnormal lymph nodes, no rash. Neurologic--cranial nerves II through XII grossly intact. Rheumatologic--normal range of motion. Psychiatric--normal affect. Results & Data Results & Data Vital Signs (Past 12 Hours) Vital Signs Temp Pulse Pulse Resp BP Pulse Ox O2 Del Method 10/03/22 11:29 98.1 F 79 18 116/82 98 Room Air 10/03/22 08:15 97.9 F 71 18 120/78 99 Room Air 10/03/22 03:00 98.2 F 72 18 129/86 98 Room Air PG Care Time/CCT Total # of Minutes Spent Total Time Spent with Patient: Total time spent is greater than 50% in coordination of care (as documented) at patient's floor/unit and/or counseling patient: Coding Level of Care Code 33524 SUB INP/OBS CARE 2/35MIN Diagnoses Alcohol withdrawal F10.939 Spinal stenosis at L4-L5 level M48.061 Weakness R53.1 Hypomagnesemia E83.42 Pancytopenia D61.818 Hypertension I10 Tobacco use disorder F17.200 Tethering of spinal cord Q06.8 Elevated lipase R74.8 Abdominal pain R10.9 Time Spent (min) 35
[2022-10-03] MEDS: ACETAMINOPHEN 325 MG TAB PO PRN (19:28)
[2022-10-03] MEDS: hydrOXYzine HCl 25 MG TAB PO PRN (20:33)
[2022-10-03] MEDS: traZODone HCL 50 MG TAB PO SCH (21:53)
[2022-10-04] MEDS: THIAMINE HCL 500 MG in SODIUM CHLORIDE 0.9% 50 ML IV SCH ×2 (01:31→10:04)
[2022-10-04] MEDS: LACTATED RINGER'S 1,000 ML IV SCH (01:32)
[2022-10-04] MEDS: chlordiazePOXIDE HCl 5 MG CAP PO SCH ×2 (05:35→17:44)
[2022-10-04 06:58] LABS: Creatinine Clr Calc Pharmacy 194.7 ml/min; Est GFR (African American) > 150.0 ml/min; Est GFR (Non-African American) 131.3 ml/min
[2022-10-04] MEDS: FLUoxetine HCL 20 MG CAP PO SCH (08:56)
[2022-10-04] MEDS: METOPROLOL SUCC 25MG EXT REL TAB PO SCH (08:56)
[2022-10-04] MEDS: CEROVITE ADV FORMULA TAB PO SCH (08:56)
[2022-10-04] MEDS: PANTOprazole 40 MG TAB PO SCH ×2 (08:56→20:08)
[2022-10-04] MEDS: SUCRALFATE 1 GM/10 ML UDC PO SCH ×4 (08:57→20:08)
[2022-10-04] MEDS: busPIRone 5 MG TAB PO SCH ×2 (08:57→20:08)
[2022-10-04] MEDS: FOLIC ACID 1 MG TAB PO SCH (08:57)
[2022-10-04] MEDS: NICOTINE 21 MG/24 HR TDSY TD SCH (08:57)
[2022-10-04] MEDS: MAGNESIUM OXIDE 400 MG TAB PO SCH (08:57)
[2022-10-04] MEDS ORDERED: Nursing to Pharmacy Communication SCH (10:00)
[2022-10-04] MEDS: ENOXAPARIN INJ 40 MG/0.4 ML SYR SQ SCH (10:04)
--- NOTE | 2022-10-04 14:26 | Hospitalist Progress Note ---
Date of Service October 04, 2022 Assessment & Plan (1) Alcohol withdrawal: Plan: Tremors now gone cont librium taper ativan prn per [facility] protocol cont thiamine, folic acid Patient willing to try alchohol rehab (2) Spinal stenosis at L4-L5 level: Plan: MRI lumbar spine obtained due to prior MRI showing significant disease and his ongoing b/l LE weakness, falls, neuropathy Shows "L4-L5: There is broad-based posterior disc bulge. This impinges in the transiting nerve roots and may tether the cauda equina at this level. In conjunction with anterolisthesis, there is moderate central canal stenosis at this level with a minimum AP diameter of 6 mm. Lateral disc bulges contribute to bilateral subarticular stenosis and likely impinge in the exiting bilateral L4 nerve roots. In conjunction with facet arthropathy, there is moderate to severe bilateral neural foraminal stenosis at this level, right greater than left. L5-S1: There is broad-based posterior disc bulge. This abuts the transiting n erve roots. There is minimal inferior central disc extrusion, seen on axial image #7. Lateral disc bulges contribute to bilateral subarticular stenosis, right greater than left. This may impinge in the exiting right L5 nerve root. In conjunction with facet arthropathy, there is moderate to severe right and mild to moderate left neural foraminal stenosis." Ortho spine on consult, appreciate recs Due to his alcohol abuse, patient not a candidate for surgery he will need at least 3 months of abstinence and also optimized nutrition before he would be considered for surgery (3) Weakness: Plan: Lower extremity weakness largeley due to lumbar spinal stenosis as seen on MRI (4) Hypomagnesemia: Plan: Replace (5) Pancytopenia: Plan: 2nd to alcohol and bone marrow suppression from such TSH wnl B12 level 07/2022 wnl Folate level 07/2022 wnl CBC again stable today (6) Hypertension: Plan: cont metoprolol succ 25mg daily titrate as needed (7) Tobacco use disorder: Plan: cont nicoderm patch 21mg/day (8) Tethering of spinal cord: Plan: Spine ortho on consult (9) Elevated lipase: Plan: Mild pancreatitis due to alcohol use (10) Abdominal pain: Plan: suspect alcoholic gastritis (could even have PUD - in addition to etoh he takes motrin at home for pain) +/- mild pancreatitis increase PPI to BID dosing add carafate 1gm QID avoid nsaids Plan hopefully d/c in the next 24 hrs, patient may benefit from rehab, he willing to try alcohol rehab Admission and Anticipated Discharge Date Admission Date: September 30, 2022 Subjective patient seen and examined, still has some lower extremity weakness, but his tremors have improved, participating in PT Review of Systems Review of Systems: All systems reviewed are negative, apart from the ones contained in the history. Physical Exam Physical Exam: The patient is awake, alert and oriented 3, well developed and well nourished, normocephalic and atraumatic, lying in bed and in no acute distress. HEENT--PERRL, EOMI, mucous membranes and oropharynx mildly dry Neck--supple. No JVD. No bruits. Thyroid normal, trachea midline, no adenopathy. Heart--normal S1 and S2. No murmurs, rubs or gallops. Lungs--clear bilaterally, no respiratory distress, no accessory muscle use. Abdomen--normal bowel sounds and soft. Mild epigastric and left sided abdominal pain Extremities--no cyanosis or clubbing. No edema. Dermatologic--normal skin turgor, normal color, no abnormal lymph nodes, no rash. Neurologic--cranial nerves II through XII grossly intact. Rheumatologic--normal range of motion. Psychiatric--normal affect. Results & Data Results & Data Vital Signs (Past 12 Hours) Vital Signs Temp Pulse Resp BP Pulse Ox O2 Del Method 10/04/22 11:43 97.9 F 76 17 132/84 99 Room Air 10/04/22 07:41 Room Air 10/04/22 07:04 97.9 F 72 17 134/85 98 Room Air 10/04/22 03:00 98.4 F 81 20 147/92 H 99 Room Air PG Care Time/CCT Total # of Minutes Spent Total Time Spent with Patient: Total time spent is greater than 50% in coordination of care (as documented) at patient's floor/unit and/or counseling patient: Coding Level of Care Code 74180 SUB INP/OBS CARE 2/35MIN Diagnoses Alcohol withdrawal F10.939 Spinal stenosis at L4-L5 level M48.061 Weakness R53.1 Hypomagnesemia E83.42 Pancytopenia D61.818 Hypertension I10 Tobacco use disorder F17.200 Tethering of spinal cord Q06.8 Elevated lipase R74.8 Abdominal pain R10.9 Time Spent (min) 35
[2022-10-04] MEDS: ACETAMINOPHEN 325 MG TAB PO PRN (20:07)
[2022-10-04] MEDS: hydrOXYzine HCl 25 MG TAB PO PRN (22:01)
[2022-10-04] MEDS: traZODone HCL 50 MG TAB PO SCH (22:01)
[2022-10-05] MEDS: NICOTINE 21 MG/24 HR TDSY TD SCH (08:50)
[2022-10-05] MEDS: ACETAMINOPHEN 325 MG TAB PO PRN ×2 (08:54→21:36)
[2022-10-05] MEDS: MAGNESIUM OXIDE 400 MG TAB PO SCH (08:54)
[2022-10-05] MEDS: busPIRone 5 MG TAB PO SCH ×2 (08:55→21:34)
[2022-10-05] MEDS: CEROVITE ADV FORMULA TAB PO SCH (08:55)
[2022-10-05] MEDS: PANTOprazole 40 MG TAB PO SCH ×2 (08:55→21:34)
[2022-10-05] MEDS: METOPROLOL SUCC 25MG EXT REL TAB PO SCH (08:56)
[2022-10-05] MEDS: FLUoxetine HCL 20 MG CAP PO SCH (08:56)
[2022-10-05] MEDS: THIAMINE HCL 100 MG TAB PO SCH (08:56)
[2022-10-05] MEDS: FOLIC ACID 1 MG TAB PO SCH (08:57)
[2022-10-05] MEDS: SUCRALFATE 1 GM/10 ML UDC PO SCH ×4 (08:58→21:33)
[2022-10-05] MEDS: ENOXAPARIN INJ 40 MG/0.4 ML SYR SQ SCH (10:00)
--- NOTE | 2022-10-05 13:02 | Hospitalist Progress Note ---
Date of Service October 05, 2022 Assessment & Plan (1) Alcohol withdrawal: Plan: Tremors now gone ativan prn per [facility] protocol cont thiamine, folic acid Awaiting rehab (2) Spinal stenosis at L4-L5 level: Plan: MRI lumbar spine obtained due to prior MRI showing significant disease and his ongoing b/l LE weakness, falls, neuropathy Shows "L4-L5: There is broad-based posterior disc bulge. This impinges in the transiting nerve roots and may tether the cauda equina at this level. In conjunction with anterolisthesis, there is moderate central canal stenosis at this level with a minimum AP diameter of 6 mm. Lateral disc bulges contribute to bilateral subarticular stenosis and likely impinge in the exiting bilateral L4 nerve roots. In conjunction with facet arthropathy, there is moderate to severe bilateral neural foraminal stenosis at this level, right greater than left. L5-S1: There is broad-based posterior disc bulge. This abuts the transiting nerve roots. There is minimal inferior central disc extrusion, seen on axial image #7. Lateral disc bulges contribute to bilateral subarticular stenosis, right greater than left. This may impinge in the exiting right L5 nerve root. In conjunction with facet arthropathy, there is moderate to severe right and mild to moderate left neural foraminal stenosis." Ortho spine on consult, appreciate recs Due to his alcohol abuse, patient not a candidate for surgery he will need at least 3 months of abstinence and also optimized nutrition before he would be considered for surgery Will discharge to rehab when bed is available (3) Weakness: Plan: Lower extremity weakness largeley due to lumbar spinal stenosis as seen on MRI (4) Hypomagnesemia: Plan: Replace (5) Pancytopenia: Plan: 2nd to alcohol and bone marrow suppression from such TSH wnl B12 level 07/2022 wnl Folate level 07/2022 wnl CBC again stable today (6) Hypertension: Plan: cont metoprolol succ 25mg daily titrate as needed (7) Tobacco use disorder: Plan: cont nicoderm patch 21mg/day (8) Tethering of spinal cord: Plan: Spine ortho on consult (9) Elevated lipase: Plan: Mild pancreatitis due to alcohol use (10) Abdominal pain: Plan: suspect alcoholic gastritis (could even have PUD - in addition to etoh he takes motrin at home for pain) +/- mild pancreatitis increase PPI to BID dosing add carafate 1gm QID avoid nsaids Plan d/c to snf when bed is available Admission and Anticipated Discharge Date Admission Date: September 30, 2022 Subjective patient seen and examined, tremors have resolved, no new complaints today, awaiting snf Review of Systems Review of Systems: All systems reviewed are negative, apart from the ones contained in the history. Physical Exam Physical Exam: The patient is awake, alert and oriented 3, well developed and well nourished, normocephalic and atraumatic, lying in bed and in no acute distress. HEENT--PERRL, EOMI, mucous membranes and oropharynx mildly dry Neck--supple. No JVD. No bruits. Thyroid normal, trachea midline, no adenopathy. Heart--normal S1 and S2. No murmurs, rubs or gallops. Lungs--clear bilaterally, no respiratory distress, no accessory muscle use. Abdomen--normal bowel sounds and soft. Mild epigastric and left sided abdominal pain Extremities--no cyanosis or clubbing. No edema. Dermatologic--normal skin turgor, normal color, no abnormal lymph nodes, no rash. Neurologic--cranial nerves II through XII grossly intact. Rheumatologic--normal range of motion. Psychiatric--normal affect. Results & Data Results & Data Vital Signs (Past 12 Hours) Vital Signs Temp Pulse Pulse Resp BP Pulse Ox O2 Del Method 10/05/22 11:15 97.7 F 73 17 146/85 H 99 Room Air 10/05/22 07:11 63 10/05/22 07:00 97.9 F 74 17 124/81 97 Room Air 10/05/22 03:00 98.2 F 76 17 130/79 99 Room Air PG Care Time/CCT Total # of Minutes Spent Total Time Spent with Patient: Total time spent is greater than 50% in coordination of care (as documented) at patient's floor/unit and/or counseling patient: Coding Level of Care Code 35330 SUB INP/OBS CARE 2/35MIN Diagnoses Alcohol withdrawal F10.939 Spinal stenosis at L4-L5 level M48.061 Weakness R53.1 Hypomagnesemia E83.42 Pancytopenia D61.818 Hypertension I10 Tobacco use disorder F17.200 Tethering of spinal cord Q06.8 Elevated lipase R74.8 Abdominal pain R10.9 Time Spent (min) 35
[2022-10-05] MEDS: traZODone HCL 50 MG TAB PO SCH (21:35)
[2022-10-05] MEDS: hydrOXYzine HCl 25 MG TAB PO PRN (22:26)
[2022-10-06 06:20] LABS: Anion Gap 5 (3-11); BUN Creatinine Ratio 23.3 (10-20); Blood Urea Nitrogen 10 mg/dl (6-23); Calcium 8.5 mg/dl (8.6-10.3); Carbon Dioxide 23 mmol/L (21-32); Chloride 107 mmol/L (98-107); Creatinine Clr Calc Pharmacy 196.1 ml/min; Est GFR (African American) > 150.0 ml/min; Est GFR (Non-African American) 132.6 ml/min; Glucose 97 mg/dl (70-99(Fasting)); Potassium 3.5 mmol/L (3.5-5.1); Sodium 135 mmol/L (136-145)
[2022-10-06] MEDS: FLUoxetine HCL 20 MG CAP PO SCH (08:05)
[2022-10-06] MEDS: MAGNESIUM OXIDE 400 MG TAB PO SCH (08:06)
[2022-10-06] MEDS: SUCRALFATE 1 GM/10 ML UDC PO SCH ×4 (08:06→20:37)
[2022-10-06] MEDS: THIAMINE HCL 100 MG TAB PO SCH (08:06)
[2022-10-06] MEDS: FOLIC ACID 1 MG TAB PO SCH (08:06)
[2022-10-06] MEDS: CEROVITE ADV FORMULA TAB PO SCH (08:06)
[2022-10-06] MEDS: METOPROLOL SUCC 25MG EXT REL TAB PO SCH (08:06)
[2022-10-06] MEDS: PANTOprazole 40 MG TAB PO SCH ×2 (08:06→20:38)
[2022-10-06] MEDS: busPIRone 5 MG TAB PO SCH ×2 (08:06→20:37)
[2022-10-06] MEDS: NICOTINE 21 MG/24 HR TDSY TD SCH (08:07)
[2022-10-06] MEDS: ENOXAPARIN INJ 40 MG/0.4 ML SYR SQ SCH (10:45)
--- NOTE | 2022-10-06 12:17 | Hospitalist Progress Note ---
Date of Service October 06, 2022 Assessment & Plan (1) Alcohol withdrawal: Plan: Tremors now gone ativan prn per [facility] protocol cont thiamine, folic acid Awaiting rehab authorization (2) Spinal stenosis at L4-L5 level: Plan: MRI lumbar spine obtained due to prior MRI showing significant disease and his ongoing b/l LE weakness, falls, neuropathy Shows "L4-L5: There is broad-based posterior disc bulge. This impinges in the transiting nerve roots and may tether the cauda equina at this level. In conjunction with anterolisthesis, there is moderate central canal stenosis at this level with a minimum AP diameter of 6 mm. Lateral disc bulges contribute to bilateral subarticular stenosis and likely impinge in the exiting bilateral L4 nerve roots. In conjunction with facet arthropathy, there is moderate to severe bilateral neural foraminal stenosis at this level, right greater than left. L5-S1: There is broad-based posterior disc bulge. This abuts the transiting nerve roots. There is minimal inferior central disc extrusion, seen on axial image #7. Lateral disc bulges contribute to bilateral subarticular stenosis, right greater than left. This may impinge in the exiting right L5 nerve root. In conjunction with facet arthropathy, there is moderate to severe right and mild to moderate left neural foraminal stenosis." Ortho spine on consult, appreciate recs Due to his alcohol abuse, patient not a candidate for surgery he will need at least 3 months of abstinence and also optimized nutrition before he would be considered for surgery Will discharge to rehab when bed is available (3) Weakness: Plan: Lower extremity weakness largely due to lumbar spinal stenosis as seen on MRI Continue PT (4) Hypomagnesemia: Plan: Replace (5) Pancytopenia: Plan: 2nd to alcohol and bone marrow suppression from such TSH wnl B12 level 07/2022 wnl Folate level 07/2022 wnl CBC again stable today (6) Hypertension: Plan: cont metoprolol succ 25mg daily titrate as needed (7) Tobacco use disorder: Plan: cont nicoderm patch 21mg/day (8) Tethering of spinal cord: Plan: Spine ortho on consult (9) Elevated lipase: Plan: Mild pancreatitis due to alcohol use (10) Abdominal pain: Plan: suspect alcoholic gastritis (could even have PUD - in addition to etoh he takes motrin at home for pain) +/- mild pancreatitis increase PPI to BID dosing add carafate 1gm QID avoid nsaids Plan d/c to snf when bed is available Admission and Anticipated Discharge Date Admission Date: September 30, 2022 Subjective patient seen and examined, tremors have resolved, no new complaints today, awaiting snf auth Review of Systems Review of Systems: All systems reviewed are negative, apart from the ones contained in the history. Physical Exam Physical Exam: The patient is awake, alert and oriented 3, well developed and well nourished, normocephalic and atraumatic, lying in bed and in no acute distress. HEENT--PERRL, EOMI, mucous membranes and oropharynx mildly dry Neck--supple. No JVD. No bruits. Thyroid normal, trachea midline, no adenopathy. Heart--normal S1 and S2. No murmurs, rubs or gallops. Lungs--clear bilaterally, no respiratory distress, no accessory muscle use. Abdomen--normal bowel sounds and soft. Mild epigastric and left sided abdominal pain Extremities--no cyanosis or clubbing. No edema. Dermatologic--normal skin turgor, normal color, no abnormal lymph nodes, no rash. Neurologic--cranial nerves II through XII grossly intact. Rheumatologic--normal range of motion. Psychiatric--normal affect. Results & Data Results & Data Vital Signs (Past 12 Hours) Vital Signs Temp Pulse Pulse Resp BP Pulse Ox O2 Del Method 10/06/22 11:35 97.7 F 70 17 112/75 97 Room Air 10/06/22 08:00 67 10/06/22 07:24 98.2 F 68 17 130/86 99 Room Air 10/06/22 03:31 98.1 F 73 16 128/84 98 Room Air PG Care Time/CCT Total # of Minutes Spent Total Time Spent with Patient: Total time spent is greater than 50% in coordination of care (as documented) at patient's floor/unit and/or counseling patient: Coding Level of Care Code 62326 SUB INP/OBS CARE 2/35MIN Diagnoses Alcohol withdrawal F10.939 Spinal stenosis at L4-L5 level M48.061 Weakness R53.1 Hypomagnesemia E83.42 Pancytopenia D61.818 Hypertension I10 Tobacco use disorder F17.200 Tethering of spinal cord Q06.8 Elevated lipase R74.8 Abdominal pain R10.9 Time Spent (min) 35
[2022-10-06] MEDS: ACETAMINOPHEN 325 MG TAB PO PRN (20:36)
[2022-10-06] MEDS: traZODone HCL 50 MG TAB PO SCH (20:37)
[2022-10-06] MEDS: hydrOXYzine HCl 25 MG TAB PO PRN (21:30)
[2022-10-07 06:29] LABS: Creatinine Clr Calc Pharmacy 164.6 ml/min; Est GFR (African American) 143.2 ml/min; Est GFR (Non-African American) 123.6 ml/min
[2022-10-07] MEDS: busPIRone 5 MG TAB PO SCH ×2 (08:25→21:05)
[2022-10-07] MEDS: FLUoxetine HCL 20 MG CAP PO SCH (08:26)
[2022-10-07] MEDS: PANTOprazole 40 MG TAB PO SCH ×2 (08:26→21:05)
[2022-10-07] MEDS: FOLIC ACID 1 MG TAB PO SCH (08:27)
[2022-10-07] MEDS: METOPROLOL SUCC 25MG EXT REL TAB PO SCH (08:27)
[2022-10-07] MEDS: THIAMINE HCL 100 MG TAB PO SCH (08:27)
[2022-10-07] MEDS: MAGNESIUM OXIDE 400 MG TAB PO SCH (08:28)
[2022-10-07] MEDS: SUCRALFATE 1 GM/10 ML UDC PO SCH ×4 (08:28→21:04)
[2022-10-07] MEDS: CEROVITE ADV FORMULA TAB PO SCH (08:28)
[2022-10-07] MEDS: NICOTINE 21 MG/24 HR TDSY TD SCH (08:29)
[2022-10-07] MEDS: ACETAMINOPHEN 325 MG TAB PO PRN ×3 (08:33→21:08)
[2022-10-07] MEDS: ENOXAPARIN INJ 40 MG/0.4 ML SYR SQ SCH (11:18)
--- NOTE | 2022-10-07 11:34 | Hospitalist Progress Note ---
Date of Service October 07, 2022 Assessment & Plan (1) Alcohol withdrawal: Plan: Tremors now gone ativan prn per [facility] protocol cont thiamine, folic acid Has been accepted at [facility], Awaiting insurance authorization (2) Spinal stenosis at L4-L5 level: Plan: MRI lumbar spine obtained due to prior MRI showing significant disease and his ongoing b/l LE weakness, falls, neuropathy Shows "L4-L5: There is broad-based posterior disc bulge. This impinges in the transiting nerve roots and may tether the cauda equina at this level. In conjunction with anterolisthesis, there is moderate central canal stenosis at this level with a minimum AP diameter of 6 mm. Lateral disc bulges contribute to bilateral subarticular stenosis and likely impinge in the exiting bilateral L4 nerve roots. In conjunction with facet arthropathy, there is moderate to severe bilateral neural foraminal stenosis at this level, right greater than left. L5-S1: There is broad-based posterior disc bulge. This abuts the transiting nerve roots. There is minimal inferior central disc extrusion, seen on axial image #7. Lateral disc bulges contribute to bilateral subarticular stenosis, right greater than left. This may impinge in the exiting right L5 nerve root. In conjunction with facet arthropathy, there is moderate to severe right and mild to moderate left neural foraminal stenosis." Ortho spine on consult, appreciate recs Due to his alcohol abuse, patient not a candidate for surgery he will need at least 3 months of abstinence and also optimized nutrition before he would be considered for surgery Will discharge to rehab when bed is available (3) Weakness: Plan: Lower extremity weakness largely due to lumbar spinal stenosis as seen on MRI Continue PT (4) Hypomagnesemia: Plan: Replace (5) Pancytopenia: Plan: 2nd to alcohol and bone marrow suppression from such TSH wnl B12 level 07/2022 wnl Folate level 07/2022 wnl (6) Hypertension: Plan: cont metoprolol succ 25mg daily titrate as needed (7) Tobacco use disorder: Plan: cont nicoderm patch 21mg/day (8) Tethering of spinal cord: Plan: Spine ortho on consult (9) Elevated lipase: Plan: Mild pancreatitis due to alcohol use (10) Abdominal pain: Plan: suspect alcoholic gastritis (could even have PUD - in addition to etoh he takes motrin at home for pain) +/- mild pancreatitis increase PPI to BID dosing add carafate 1gm QID avoid nsaids Plan d/c to snf when bed is available Admission and Anticipated Discharge Date Admission Date: September 30, 2022 Subjective patient seen and examined, tremors have resolved, no new complaints today, has been accepted at [facility], awaiting snf auth Review of Systems Review of Systems: All systems reviewed are negative, apart from the ones contained in the history. Physical Exam Physical Exam: The patient is awake, alert and oriented 3, well developed and well nourished, normocephalic and atraumatic, lying in bed and in no acute distress. HEENT--PERRL, EOMI, mucous membranes and oropharynx mildly dry Neck--supple. No JVD. No bruits. Thyroid normal, trachea midline, no adenopathy. Heart--normal S1 and S2. No murmurs, rubs or gallops. Lungs--clear bilaterally, no respiratory distress, no accessory muscle use. Abdomen--normal bowel sounds and soft. Mild epigastric and left sided abdominal pain Extremities--no cyanosis or clubbing. No edema. Dermatologic--normal skin turgor, normal color, no abnormal lymph nodes, no rash. Neurologic--cranial nerves II through XII grossly intact. Rheumatologic--normal range of motion. Psychiatric--normal affect. Results & Data Results & Data Vital Signs (Past 12 Hours) Vital Signs Temp Pulse Resp BP BP Pulse Ox O2 Del Method 10/07/22 07:30 98.1 F 85 18 105/76 99 Room Air 10/07/22 11:30 98.4 F 89 17 114/81 99 Room Air 10/07/22 03:22 98.8 F 77 18 114/77 97 Room Air PG Care Time/CCT Total # of Minutes Spent Total Time Spent with Patient: Total time spent is greater than 50% in coordination of care (as documented) at patient's floor/unit and/or counseling patient: Coding Level of Care Code 19919 SUB INP/OBS CARE 2/35MIN Diagnoses Alcohol withdrawal F10.939 Spinal stenosis at L4-L5 level M48.061 Weakness R53.1 Hypomagnesemia E83.42 Pancytopenia D61.818 Hypertension I10 Tobacco use disorder F17.200 Tethering of spinal cord Q06.8 Elevated lipase R74.8 Abdominal pain R10.9 Time Spent (min) 35
[2022-10-07] MEDS: hydrOXYzine HCl 25 MG TAB PO PRN (21:04)
[2022-10-07] MEDS: traZODone HCL 50 MG TAB PO SCH (21:05)
[2022-10-08 06:40] LABS: Calcium 8.7 mg/dl (8.6-10.3); Creatinine Clr Calc Pharmacy 166.7 ml/min; Est GFR (African American) 144.4 ml/min; Est GFR (Non-African American) 124.6 ml/min; Potassium 3.6 mmol/L (3.5-5.1)
[2022-10-08] MEDS: NICOTINE 21 MG/24 HR TDSY TD SCH (09:09)
[2022-10-08] MEDS: PANTOprazole 40 MG TAB PO SCH ×2 (09:10→20:17)
[2022-10-08] MEDS: FLUoxetine HCL 20 MG CAP PO SCH (09:10)
[2022-10-08] MEDS: CEROVITE ADV FORMULA TAB PO SCH (09:10)
[2022-10-08] MEDS: FOLIC ACID 1 MG TAB PO SCH (09:10)
[2022-10-08] MEDS: busPIRone 5 MG TAB PO SCH ×2 (09:11→20:17)
[2022-10-08] MEDS: THIAMINE HCL 100 MG TAB PO SCH (09:11)
[2022-10-08] MEDS: MAGNESIUM OXIDE 400 MG TAB PO SCH (09:11)
[2022-10-08] MEDS: METOPROLOL SUCC 25MG EXT REL TAB PO SCH (09:12)
[2022-10-08] MEDS: ENOXAPARIN INJ 40 MG/0.4 ML SYR SQ SCH (09:12)
[2022-10-08] MEDS: SUCRALFATE 1 GM/10 ML UDC PO SCH ×4 (09:12→20:16)
[2022-10-08] MEDS: ACETAMINOPHEN 325 MG TAB PO PRN ×2 (09:15→22:47)
--- NOTE | 2022-10-08 12:24 | Hospitalist Progress Note ---
Date of Service October 08, 2022 Assessment & Plan (1) Alcohol withdrawal: Plan: Tremors now gone Discontinue [facility] protocol cont thiamine, folic acid Has been accepted at [facility], Awaiting insurance authorization (2) Spinal stenosis at L4-L5 level: Plan: MRI lumbar spine obtained due to prior MRI showing significant disease and his ongoing b/l LE weakness, falls, neuropathy Shows "L4-L5: There is broad-based posterior disc bulge. This impinges in the transiting nerve roots and may tether the cauda equina at this level. In conjunction with anterolisthesis, there is moderate central canal stenosis at this level with a minimum AP diameter of 6 mm. Lateral disc bulges contribute to bilateral subarticular stenosis and likely impinge in the exiting bilateral L4 nerve roots. In conjunction with facet arthropathy, there is moderate to severe bilateral neural foraminal stenosis at this level, right greater than left. L5-S1: There is broad-based posterior disc bulge. This abuts the transiting nerve roots. There is minimal inferior central disc extrusion, seen on axial image #7. Lateral disc bulges contribute to bilateral subarticular stenosis, right greater than left. This may impinge in the exiting right L5 nerve root. In conjunction with facet arthropathy, there is moderate to severe right and mild to moderate left neural foraminal stenosis." Ortho spine on consult, appreciate recs Due to his alcohol abuse, patient not a candidate for surgery he will need at least 3 months of abstinence and also optimized nutrition before he would be considered for surgery Will discharge to rehab when bed is available (3) Weakness: Plan: Lower extremity weakness largely due to lumbar spinal stenosis as seen on MRI Continue PT (4) Hypomagnesemia: Plan: Replace (5) Pancytopenia: Plan: 2nd to alcohol and bone marrow suppression from such TSH wnl B12 level 07/2022 wnl Folate level 07/2022 wnl (6) Hypertension: Plan: cont metoprolol succ 25mg daily titrate as needed (7) Tobacco use disorder: Plan: cont nicoderm patch 21mg/day (8) Tethering of spinal cord: Plan: Spine ortho on consult (9) Elevated lipase: Plan: Mild pancreatitis due to alcohol use (10) Abdominal pain: Plan: suspect alcoholic gastritis (could even have PUD - in addition to etoh he takes motrin at home for pain) +/- mild pancreatitis increase PPI to BID dosing add carafate 1gm QID avoid nsaids Plan Insurance auth was denies, called to set up peer to peer, awaiting call back Admission and Anticipated Discharge Date Admission Date: September 30, 2022 Subjective patient seen and examined, tremors have resolved, no new complaints today, has been accepted at [facility], auth was denied. awaiting call back to set up peer to peer Review of Systems Review of Systems: All systems reviewed are negative, apart from the ones contained in the history. Physical Exam Physical Exam: The patient is awake, alert and oriented 3, well developed and well nourished, normocephalic and atraumatic, lying in bed and in no acute distress. HEENT--PERRL, EOMI, mucous membranes and oropharynx mildly dry Neck--supple. No JVD. No bruits. Thyroid normal, trachea midline, no adenopathy. Heart--normal S1 and S2. No murmurs, rubs or gallops. Lungs--clear bilaterally, no respiratory distress, no accessory muscle use. Abdomen--normal bowel sounds and soft. Mild epigastric and left sided abdominal pain Extremities--no cyanosis or clubbing. No edema. Dermatologic--normal skin turgor, normal color, no abnormal lymph nodes, no r marco. Neurologic--cranial nerves II through XII grossly intact. Rheumatologic--normal range of motion. Psychiatric--normal affect. Results & Data Results & Data Vital Signs (Past 12 Hours) Vital Signs Temp Pulse Pulse Resp BP Pulse Ox O2 Del Method 10/08/22 10:57 97.7 F 80 17 96/62 L 98 Room Air 10/08/22 07:26 98.2 F 73 17 100/64 98 Room Air 10/08/22 03:43 98.4 F 82 16 104/75 97 Room Air PG Care Time/CCT Total # of Minutes Spent Total Time Spent with Patient: Total time spent is greater than 50% in coordination of care (as documented) at patient's floor/unit and/or counseling patient: Coding Level of Care Code 64476 SUB INP/OBS CARE 2/35MIN Diagnoses Alcohol withdrawal F10.939 Spinal stenosis at L4-L5 level M48.061 Weakness R53.1 Hypomagnesemia E83.42 Pancytopenia D61.818 Hypertension I10 Tobacco use disorder F17.200 Tethering of spinal cord Q06.8 Elevated lipase R74.8 Abdominal pain R10.9 Time Spent (min) 35
[2022-10-08] MEDS: hydrOXYzine HCl 25 MG TAB PO PRN (22:47)
[2022-10-08] MEDS: traZODone HCL 50 MG TAB PO SCH (22:48)
[2022-10-09] MEDS: PANTOprazole 40 MG TAB PO SCH ×2 (09:17→20:31)
[2022-10-09] MEDS: busPIRone 5 MG TAB PO SCH ×2 (09:17→20:31)
[2022-10-09] MEDS: MAGNESIUM OXIDE 400 MG TAB PO SCH (09:18)
[2022-10-09] MEDS: FLUoxetine HCL 20 MG CAP PO SCH (09:18)
[2022-10-09] MEDS: CEROVITE ADV FORMULA TAB PO SCH (09:18)
[2022-10-09] MEDS: FOLIC ACID 1 MG TAB PO SCH (09:18)
[2022-10-09] MEDS: SUCRALFATE 1 GM/10 ML UDC PO SCH ×4 (09:19→20:31)
[2022-10-09] MEDS: ENOXAPARIN INJ 40 MG/0.4 ML SYR SQ SCH (09:19)
[2022-10-09] MEDS: THIAMINE HCL 100 MG TAB PO SCH (09:19)
[2022-10-09] MEDS: METOPROLOL SUCC 25MG EXT REL TAB PO SCH (09:19)
[2022-10-09] MEDS: NICOTINE 21 MG/24 HR TDSY TD SCH (09:20)
--- NOTE | 2022-10-09 13:25 | Hospitalist Progress Note ---
Date of Service October 09, 2022 Assessment & Plan (1) Alcohol withdrawal: Plan: Tremors now gone Discontinue [facility] protocol cont thiamine, folic acid Has been accepted at [facility], Awaiting insurance authorization (2) Spinal stenosis at L4-L5 level: Plan: MRI lumbar spine obtained due to prior MRI showing significant disease and his ongoing b/l LE weakness, falls, neuropathy Shows "L4-L5: There is broad-based posterior disc bulge. This impinges in the transiting nerve roots and may tether the cauda equina at this level. In conjunction with anterolisthesis, there is moderate central canal stenosis at this level with a minimum AP diameter of 6 mm. Lateral disc bulges contribute to bilateral subarticular stenosis and likely impinge in the exiting bilateral L4 nerve roots. In conjunction with facet arthropathy, there is moderate to severe bilateral neural foraminal stenosis at this level, right greater than left. L5-S1: There is broad-based posterior disc bulge. This abuts the transiting nerve roots. There is minimal inferior central disc extrusion, seen on axial image #7. Lateral disc bulges contribute to bilateral subarticular stenosis, right greater than left. This may impinge in the exiting right L5 nerve root. In conjunction with facet arthropathy, there is moderate to severe right and mild to moderate left neural foraminal stenosis." Ortho spine on consult, appreciate recs Due to his alcohol abuse, patient not a candidate for surgery he will need at least 3 months of abstinence and also optimized nutrition before he would be considered for surgery His insurance denied rehab, awaiting call back for peer to peer (they said it may take 5 days for call back) (3) Weakness: Plan: Lower extremity weakness largely due to lumbar spinal stenosis as seen on MRI Continue PT (4) Hypomagnesemia: Plan: Replace (5) Pancytopenia: Plan: 2nd to alcohol and bone marrow suppression from such TSH wnl B12 level 07/2022 wnl Folate level 07/2022 wnl (6) Hypertension: Plan: cont metoprolol succ 25mg daily titrate as needed (7) Tobacco use disorder: Plan: cont nicoderm patch 21mg/day (8) Tethering of spinal cord: Plan: Spine ortho on consult (9) Elevated lipase: Plan: Mild pancreatitis due to alcohol use (10) Abdominal pain: Plan: suspect alcoholic gastritis (could even have PUD - in addition to etoh he takes motrin at home for pain) +/- mild pancreatitis increase PPI to BID dosing add carafate 1gm QID avoid nsaids Plan Insurance auth was denies, called to set up peer to peer, awaiting call back, they said it may take 5 days Admission and Anticipated Discharge Date Admission Date: September 30, 2022 Subjective patient seen and examined, tremors have resolved, no new complaints today, has been accepted at [facility], auth was denied. awaiting call back to set up peer to peer, I called them again today Review of Systems Review of Systems: All systems reviewed are negative, apart from the ones contained in the history. Physical Exam Physical Exam: The patient is awake, alert and oriented 3, well developed and well nourished, normocephalic and atraumatic, lying in bed and in no acute distress. HEENT--PERRL, EOMI, mucous membranes and oropharynx mildly dry Neck--supple. No JVD. No bruits. Thyroid normal, trachea midline, no adenopathy. Heart--normal S1 and S2. No murmurs, rubs or gallops. Lungs--clear bilaterally, no respiratory distress, no accessory muscle use. Abdomen--normal bowel sounds and soft. Mild epigastric and left sided abdominal pain Extremities--no cyanosis or clubbing. No edema. Dermatologic--normal skin turgor, normal color, no abnormal lymph nodes, no rash. Neurologic--cranial nerves II through XII grossly intact. Rheumatologic--normal range of motion. Psychiatric--normal affect. Results & Data Results & Data Vital Signs (Past 12 Hours) Vital Signs Temp Pulse Resp BP Pulse Ox O2 Del Method 10/09/22 07:54 97.9 F 88 18 102/62 98 Room Air 10/09/22 03:00 98.1 F 71 16 98/62 L 99 Room Air PG Care Time/CCT Total # of Minutes Spent Total Time Spent with Patient: Total time spent is greater than 50% in coordination of care (as documented) at patient's floor/unit and/or counseling patient: Coding Level of Care Code 09647 SUB INP/OBS CARE 2/35MIN Diagnoses Alcohol withdrawal F10.939 Spinal stenosis at L4-L5 level M48.061 Weakness R53.1 Hypomagnesemia E83.42 Pancytopenia D61.818 Hypertension I10 Tobacco use disorder F17.200 Tethering of spinal cord Q06.8 Elevated lipase R74.8 Abdominal pain R10.9 Time Spent (min) 35
[2022-10-09] MEDS: ACETAMINOPHEN 325 MG TAB PO PRN ×2 (18:11→23:24)
[2022-10-09] MEDS: traZODone HCL 50 MG TAB PO SCH (23:24)
[2022-10-09] MEDS: hydrOXYzine HCl 25 MG TAB PO PRN (23:25)
[2022-10-10 06:28] LABS: Creatinine Clr Calc Pharmacy 159.1 ml/min; Est GFR (African American) 142.1 ml/min; Est GFR (Non-African American) 122.6 ml/min
[2022-10-10] MEDS: SUCRALFATE 1 GM/10 ML UDC PO SCH ×4 (09:10→22:41)
[2022-10-10] MEDS: CEROVITE ADV FORMULA TAB PO SCH (09:11)
[2022-10-10] MEDS: MAGNESIUM OXIDE 400 MG TAB PO SCH (09:11)
[2022-10-10] MEDS: FLUoxetine HCL 20 MG CAP PO SCH (09:12)
[2022-10-10] MEDS: FOLIC ACID 1 MG TAB PO SCH (09:12)
[2022-10-10] MEDS: busPIRone 5 MG TAB PO SCH ×2 (09:12→22:41)
[2022-10-10] MEDS: THIAMINE HCL 100 MG TAB PO SCH (09:13)
[2022-10-10] MEDS: PANTOprazole 40 MG TAB PO SCH ×2 (09:13→22:40)
[2022-10-10] MEDS: METOPROLOL SUCC 25MG EXT REL TAB PO SCH (09:13)
[2022-10-10] MEDS: ENOXAPARIN INJ 40 MG/0.4 ML SYR SQ SCH (09:14)
[2022-10-10] MEDS: NICOTINE 21 MG/24 HR TDSY TD SCH (09:14)
--- NOTE | 2022-10-10 12:20 | Hospitalist Progress Note ---
Date of Service October 10, 2022 Assessment & Plan (1) Alcohol withdrawal: Plan: Tremors now gone Discontinue [facility] protocol cont thiamine, folic acid Has been accepted at [facility], but denied insurance authorization. Awaiting call back for peer to peer (2) Spinal stenosis at L4-L5 level: Plan: MRI lumbar spine obtained due to prior MRI showing significant disease and his ongoing b/l LE weakness, falls, neuropathy Shows "L4-L5: There is broad-based posterior disc bulge. This impinges in the transiting nerve roots and may tether the cauda equina at this level. In conjunction with anterolisthesis, there is moderate central canal stenosis at this level with a minimum AP diameter of 6 mm. Lateral disc bulges contribute to bilateral subarticular stenosis and likely impinge in the exiting bilateral L4 nerve roots. In conjunction with facet arthropathy, there is moderate to severe bilateral neural foraminal stenosis at this level, right greater than left. L5-S1: There is broad-based posterior disc bulge. This abuts the transiting nerve roots. There is minimal inferior central disc extrusion, seen on axial image #7. Lateral disc bulges contribute to bilateral subarticular stenosis, right greater than left. This may impinge in the exiting right L5 nerve root. In conjunction with facet arthropathy, there is moderate to severe right and mild to moderate left neural foraminal stenosis." Ortho spine on consult, appreciate recs Due to his alcohol abuse, patient not a candidate for surgery he will need at least 3 months of abstinence and also optimized nutrition before he would be considered for surgery His insurance denied rehab, awaiting call back for peer to peer (they said it may take 5 days for call back) (3) Weakness: Plan: Lower extremity weakness largely due to lumbar spinal stenosis as seen on MRI Continue PT (4) Hypomagnesemia: Plan: Replace (5) Pancytopenia: Plan: 2nd to alcohol and bone marrow suppression from such TSH wnl B12 level 07/2022 wnl Folate level 07/2022 wnl (6) Hypertension: Plan: cont metoprolol succ 25mg daily titrate as needed (7) Tobacco use disorder: Plan: cont nicoderm patch 21mg/day (8) Tethering of spinal cord: Plan: Spine ortho on consult (9) Elevated lipase: Plan: Mild pancreatitis due to alcohol use (10) Abdominal pain: Plan: suspect alcoholic gastritis (could even have PUD - in addition to etoh he takes motrin at home for pain) +/- mild pancreatitis increase PPI to BID dosing add carafate 1gm QID avoid nsaids Plan Insurance auth was denies, called to set up peer to peer x2, still awaiting call back, they said it may take 5 days Admission and Anticipated Discharge Date Admission Date: September 30, 2022 Subjective patient seen and examined, tremors have resolved, no new complaints today, has been accepted at [facility], auth was denied. awaiting call back to set up peer to peer, Review of Systems Review of Systems: All systems reviewed are negative, apart from the ones contained in the history. Physical Exam Physical Exam: The patient is awake, alert and oriented 3, well developed and well nourished, normocephalic and atraumatic, lying in bed and in no acute distress. HEENT--PERRL, EOMI, mucous membranes and oropharynx mildly dry Neck--supple. No JVD. No bruits. Thyroid normal, trachea midline, no adenopathy. Heart--normal S1 and S2. No murmurs, rubs or gallops. Lungs--clear bilaterally, no respiratory distress, no accessory muscle use. Abdomen--normal bowel sounds and soft. Mild epigastric and left sided abdominal pain Extremities--no cyanosis or clubbing. No edema. Dermatologic--normal skin turgor, normal color, no abnormal lymph nodes, no rash. Neurologic--cranial nerves II through XII grossly intact. Rheumatologic--normal range of motion. Psychiatric--normal affect. Results & Data Results & Data Vital Signs (Past 12 Hours) Vital Signs Temp Pulse Pulse Resp BP Pulse Ox O2 Del Method 10/10/22 11:45 98.1 F 76 17 105/71 100 Room Air 10/10/22 07:41 75 10/10/22 07:00 97.5 F L 71 16 111/74 98 Room Air 10/10/22 04:02 76 10/10/22 03:00 98.1 F 778 H 16 107/72 98 Room Air PG Care Time/CCT Total # of Minutes Spent Total Time Spent with Patient: Total time spent is greater than 50% in coordination of care (as documented) at patient's floor/unit and/or counseling patient: Coding Level of Care Code 19107 SUB INP/OBS CARE 2/35MIN Diagnoses Alcohol withdrawal F10.939 Spinal stenosis at L4-L5 level M48.061 Weakness R53.1 Hypomagnesemia E83.42 Pancytopenia D61.818 Hypertension I10 Tobacco use disorder F17.200 Tethering of spinal cord Q06.8 Elevated lipase R74.8 Abdominal pain R10.9 Time Spent (min) 35
[2022-10-10] MEDS: ACETAMINOPHEN 325 MG TAB PO PRN (21:03)
[2022-10-10] MEDS: traZODone HCL 50 MG TAB PO SCH (22:40)
[2022-10-10] MEDS: hydrOXYzine HCl 25 MG TAB PO PRN (23:08)
[2022-10-11] MEDS: CEROVITE ADV FORMULA TAB PO SCH (09:13)
[2022-10-11] MEDS: METOPROLOL SUCC 25MG EXT REL TAB PO SCH (09:13)
[2022-10-11] MEDS: busPIRone 5 MG TAB PO SCH ×2 (09:13→21:12)
[2022-10-11] MEDS: SUCRALFATE 1 GM/10 ML UDC PO SCH ×4 (09:13→21:12)
[2022-10-11] MEDS: PANTOprazole 40 MG TAB PO SCH ×2 (09:13→21:12)
[2022-10-11] MEDS: MAGNESIUM OXIDE 400 MG TAB PO SCH (09:13)
[2022-10-11] MEDS: THIAMINE HCL 100 MG TAB PO SCH (09:13)
[2022-10-11] MEDS: FLUoxetine HCL 20 MG CAP PO SCH (09:14)
[2022-10-11] MEDS: ENOXAPARIN INJ 40 MG/0.4 ML SYR SQ SCH (09:14)
[2022-10-11] MEDS: FOLIC ACID 1 MG TAB PO SCH (09:14)
[2022-10-11] MEDS: NICOTINE 21 MG/24 HR TDSY TD SCH (09:14)
[2022-10-11 10:32] LABS: Basophils # (auto) 0.05 K/uL (0-0.2); Basophils % (auto) 0.7 %; Eosinophils # (auto) 0.11 K/uL (0-0.50); Eosinophils % (auto) 1.6 %; Hemoglobin 10.3 g/dl (14.0-18.0); Immature Granulocytes # (auto) 0.03 K/uL (0.01-0.20); Immature Granulocytes % (auto) 0.4 %; Lymphocytes # (auto) 1.27 K/uL (1.2-3.4); Lymphocytes % (auto) 18.6 %; Mean Corpuscular Hemoglobin 35.4 pg (25.0-34.0); Mean Corpuscular Hgb Conc 34.3 g/dL (32.0-36.0); Mean Corpuscular Volume 103.1 fL (80.0-100.0); Mean Platelet Volume 9.3 fL (9.4-12.4); Monocytes # (auto) 0.54 K/uL (0.11-0.59); Monocytes % (auto) 7.9 %; Neutrophils # (auto) 4.82 K/uL (1.40-6.50); Neutrophils % (auto) 70.8 %; Platelet Count 413 K/uL (130-400); RDW Standard Deviation 56.1 fL (36.4-46.3); Red Blood Count 2.91 M/uL (4.70-6.10); White Blood Count 6.82 K/ul (4.8-10.8)
[2022-10-11 10:48] LABS: Albumin Level 3.3 gm/dl (3.4-5.0); Bilirubin,Total 0.3 mg/dl (0.2-1.0); Calcium 9.4 mg/dl (8.6-10.3); Creatinine Clr Calc Pharmacy 140.2 ml/min; Est GFR (African American) 134.9 ml/min; Est GFR (Non-African American) 116.4 ml/min; Globulin 3.3 gm/dl (2.5-4.0); Magnesium 1.3 mg/dl (1.7-2.4); Potassium 3.9 mmol/L (3.5-5.1); Total Protein 6.6 gm/dl (6.0-8.3)
[2022-10-11] MEDS: MAGNESIUM SULFATE / D5W 1 GM/100 ML BAG IV SCH ×3 (12:33→16:26)
--- NOTE | 2022-10-11 15:36 | Hospitalist Progress Note ---
Date of Service October 11, 2022 Assessment & Plan (1) Spinal stenosis at L4-L5 level: Plan: MRI lumbar spine obtained due to prior MRI showing significant disease and his ongoing b/l LE weakness, falls, neuropathy Shows "L4-L5: There is broad-based posterior disc bulge. This impinges in the transiting nerve roots and may tether the cauda equina at this level. In conjunction with anterolisthesis, there is moderate central canal stenosis at this level with a minimum AP diameter of 6 mm. Lateral disc bulges contribute to bilateral subarticular stenosis and likely impinge in the exiting bilateral L4 nerve roots. In conjunction with facet arthropathy, there is moderate to severe bilateral neural foraminal stenosis at this level, right greater than left. L5-S1: There is broad-based posterior disc bulge. This abuts the transiting nerve roots. There is minimal inferior central disc extrusion, seen on axial image #7. Lateral disc bulges contribute to bilateral subarticular stenosis, right greater than left. This may impinge in the exiting right L5 nerve root. In conjunction with facet arthropathy, there is moderate to severe right and mild to moderate left neural foraminal stenosis." Ortho spine on consult, appreciate recs Due to his alcohol abuse, patient not a candidate for surgery he will need at least 3-6 months of abstinence and also optimized nutrition before he would be considered for surgery (2) Alcohol withdrawal: Plan: AUD with withdrawal, now resolved after Librium taper no prn ativan needed encouraged abstinence from EtOH continue MVI, thiamine, folic acid (3) Weakness: Plan: Lower extremity weakness largely due to lumbar spinal stenosis as seen on MRI Continue PT B12 and folate normal on labs in 07/2022 (4) Hypomagnesemia: Plan: low on repeat check today, likely 2/2 previous EtOH use, poor nutrition replace with 3 grams IV mag no arrhythmias noted (5) Pancytopenia: Plan: 2nd to alcohol and bone marrow suppression from such TSH wnl B12 level 07/2022 wnl Folate level 07/2022 wnl repeated CBC today-platelets now normal, hgb stable at 10, WBC normal--> improving (6) Hypertension: Plan: BPs controlled cont metoprolol succ 25mg daily titrate as needed (7) Tobacco use disorder: Plan: cont nicoderm patch 21mg/day (8) Tethering of spinal cord: Plan: Spine ortho on consult (9) Elevated lipase: Plan: Mild pancreatitis due to alcohol use now resolved (10) Abdominal pain: Plan: suspect alcoholic gastritis (could even have PUD - in addition to etoh he takes motrin at home for pain) +/- mild pancreatitis increased PPI to BID dosing and added carafate 1gm QID --> now resolved avoid nsaids Plan Dispo-continued stay, awaiting rehab placement. I did a peer to peer with insurance company and rehab denied. SNF referrals in place Medically stable for discharge to rehab, awaiting placement. Downgrade to med/surg unit Admission and Anticipated Discharge Date Admission Date: September 30, 2022 Subjective Pt reports ongoing pain in lower back and numbness and weakness down legs. No other issues, no constipation, no urinary issues. Tele with NSR,normal rates Physical Exam Constitutional: WD/WN, vitals as above Respiratory: normal respiratory effort, lungs clear to auscultation Cardiovascular: RRR, no murmur, no edema Musculoskeletal: Extremities: extremities normal to inspection; + abnormal strength (4/5 in LEs bilat) Results & Data Results & Data Vital Signs (Past 12 Hours) Vital Signs Temp Pulse Pulse Resp BP Pulse Ox O2 Del Method 10/11/22 11:00 36.9 C 67 74 18 124/67 95 Room Air 10/11/22 08:00 36.8 C 69 16 119/58 L 97 Room Air 10/11/22 03:34 36.7 C 74 16 105/68 97 Room Air Laboratory Results CBC, CMP, magnesium reviewed PG Care Time/CCT Total # of Minutes Spent Total Time Spent with Patient: Total time spent is greater than 50% in coordination of care (as documented) at patient's floor/unit and/or counseling patient: Coding Level of Care Code 69530 SUB INP/OBS CARE 2/35MIN Diagnoses Spinal stenosis at L4-L5 level M48.061 Alcohol withdrawal F10.939 Weakness R53.1 Hypomagnesemia E83.42 Pancytopenia D61.818 Hypertension I10 Tobacco use disorder F17.200 Tethering of spinal cord Q06.8 Elevated lipase R74.8 Abdominal pain R10.9
[2022-10-11] MEDS: traZODone HCL 50 MG TAB PO SCH (21:12)
[2022-10-11] MEDS: ACETAMINOPHEN 325 MG TAB PO PRN (21:15)
[2022-10-11] MEDS: hydrOXYzine HCl 25 MG TAB PO PRN (21:31)
[2022-10-12] MEDS: busPIRone 5 MG TAB PO SCH ×2 (07:25→21:29)
[2022-10-12] MEDS: METOPROLOL SUCC 25MG EXT REL TAB PO SCH (07:26)
[2022-10-12] MEDS: FLUoxetine HCL 20 MG CAP PO SCH (07:26)
[2022-10-12] MEDS: PANTOprazole 40 MG TAB PO SCH ×2 (07:26→21:29)
[2022-10-12] MEDS: CEROVITE ADV FORMULA TAB PO SCH (07:26)
[2022-10-12] MEDS: FOLIC ACID 1 MG TAB PO SCH (07:26)
[2022-10-12] MEDS: THIAMINE HCL 100 MG TAB PO SCH (07:26)
[2022-10-12] MEDS: MAGNESIUM OXIDE 400 MG TAB PO SCH (07:26)
[2022-10-12] MEDS: SUCRALFATE 1 GM/10 ML UDC PO SCH ×4 (07:27→21:29)
[2022-10-12] MEDS: NICOTINE 21 MG/24 HR TDSY TD SCH (07:27)
[2022-10-12] MEDS: CALCIUM 600MG + VIT D 400 IU TAB PO SCH (07:27)
[2022-10-12] MEDS: ENOXAPARIN INJ 40 MG/0.4 ML SYR SQ SCH (10:47)
[2022-10-12] MEDS: ACETAMINOPHEN 325 MG TAB PO PRN ×2 (17:06→21:29)
--- NOTE | 2022-10-12 19:10 | Hospitalist Progress Note ---
Date of Service October 12, 2022 Assessment & Plan (1) Spinal stenosis at L4-L5 level: Plan: MRI lumbar spine obtained due to prior MRI showing significant disease and his ongoing b/l LE weakness, falls, neuropathy Shows "L4-L5: There is broad-based posterior disc bulge. This impinges in the transiting nerve roots and may tether the cauda equina at this level. In conjunction with anterolisthesis, there is moderate central canal stenosis at this level with a minimum AP diameter of 6 mm. Lateral disc bulges contribute to bilateral subarticular stenosis and likely impinge in the exiting bilateral L4 nerve roots. In conjunction with facet arthropathy, there is moderate to severe bilateral neural foraminal stenosis at this level, right greater than left. L5-S1: There is broad-based posterior disc bulge. This abuts the transiting nerve roots. There is minimal inferior central disc extrusion, seen on axial image #7. Lateral disc bulges contribute to bilateral subarticular stenosis, right greater than left. This may impinge in the exiting right L5 nerve root. In conjunction with facet arthropathy, there is moderate to severe right and mild to moderate left neural foraminal stenosis." Ortho spine on consult, appreciate recs Due to his alcohol abuse, patient not a candidate for surgery he will need at least 3-6 months of abstinence and also optimized nutrition before he would be considered for surgery (2) Alcohol withdrawal: Plan: AUD with withdrawal, now resolved after Librium taper no prn ativan needed encouraged abstinence from EtOH continue MVI, thiamine, folic acid (3) Weakness: Plan: Lower extremity weakness largely due to lumbar spinal stenosis as seen on MRI Continue PT B12 and folate normal on labs in 07/2022 (4) Hypomagnesemia: Plan: likely 2/2 previous EtOH use, poor nutrition replaced (5) Pancytopenia: Plan: 2nd to alcohol and bone marrow suppression from such TSH wnl B12 level 07/2022 wnl Folate level 07/2022 wnl CBC 10/11 improved-platelets now normal, hgb stable at 10, WBC normal (6) Hypertension: Plan: BPs controlled cont metoprolol succ 25mg daily titrate as needed (7) Tobacco use disorder: Plan: cont nicoderm patch 21mg/day (8) Tethering of spinal cord: Plan: Spine ortho on consult (9) Elevated lipase: Plan: Mild pancreatitis due to alcohol use now resolved (10) Abdominal pain: Plan: suspect alcoholic gastritis (could even have PUD - in addition to etoh he takes motrin at home for pain) +/- mild pancreatitis increased PPI to BID dosing and added carafate 1gm QID --> now resolved avoid nsaids Plan Dispo-continued stay, awaiting rehab placement. I did a peer to peer with insurance company and rehab denied. SNF referrals in place Medically stable for discharge to rehab, awaiting placement.Hopefully tomorrow Admission and Anticipated Discharge Date Admission Date: September 30, 2022 Subjective ambulated halls today, some pain in lower back improved with tylenol no CP, SOB, nausea, bowel or bladder issues Physical Exam Constitutional: WD/WN, vitals as above Respiratory: normal respiratory effort, lungs clear to auscultation Cardiovascular: RRR, no murmur, no edema Results & Data Results & Data Vital Signs (Past 12 Hours) Vital Signs Temp Pulse Resp BP BP Pulse Ox O2 Del Method 10/12/22 15:27 36.8 C 83 18 94/63 L 97 Room Air 10/12/22 08:00 Room Air 10/12/22 07:48 36.5 C 69 17 104/73 98 Room Air PG Care Time/CCT Total # of Minutes Spent Total Time Spent with Patient: Total time spent is greater than 50% in coordination of care (as documented) at patient's floor/unit and/or counseling patient: Coding Level of Care Code 34881 SUB INP/OBS CARE 1/25MIN Diagnoses Spinal stenosis at L4-L5 level M48.061 Alcohol withdrawal F10.939 Weakness R53.1 Hypomagnesemia E83.42 Pancytopenia D61.818 Hypertension I10 Tobacco use disorder F17.200 Tethering of spinal cord Q06.8 Elevated lipase R74.8 Abdominal pain R10.9
[2022-10-12] MEDS: hydrOXYzine HCl 25 MG TAB PO PRN (21:29)
[2022-10-12] MEDS: traZODone HCL 50 MG TAB PO SCH (21:33)
[2022-10-13] MEDS: METOPROLOL SUCC 25MG EXT REL TAB PO SCH (08:16)
[2022-10-13] MEDS: busPIRone 5 MG TAB PO SCH (08:16)
[2022-10-13] MEDS: PANTOprazole 40 MG TAB PO SCH (08:16)
[2022-10-13] MEDS: FOLIC ACID 1 MG TAB PO SCH (08:16)
[2022-10-13] MEDS: NICOTINE 21 MG/24 HR TDSY TD SCH (08:16)
[2022-10-13] MEDS: FLUoxetine HCL 20 MG CAP PO SCH (08:17)
[2022-10-13] MEDS: CEROVITE ADV FORMULA TAB PO SCH (08:17)
[2022-10-13] MEDS: ENOXAPARIN INJ 40 MG/0.4 ML SYR SQ SCH (08:17)
[2022-10-13] MEDS: SUCRALFATE 1 GM/10 ML UDC PO SCH ×2 (08:17→13:12)
[2022-10-13] MEDS: MAGNESIUM OXIDE 400 MG TAB PO SCH (08:17)
[2022-10-13] MEDS: THIAMINE HCL 100 MG TAB PO SCH (08:17)
[2022-10-13] MEDS: CALCIUM 600MG + VIT D 400 IU TAB PO SCH (08:17)
--- NOTE | 2022-10-13 15:12 | Discharge Summary ---
Discharge Summary Date of Service October 13, 2022 Notes For Next Care Provider Medication Changes From Visit Increased Protonix to bid x 1 month, then resume once daily Tylenol 65mg po q4h prn pain Nicotine patch 21mg TD qday Admission HPI Per Admitting Provider 51 yo male PMHx of anxiety/depression, alcohol abuse, lumbar radiculopathy, and HTN presents with lower extremity weakness. Patient is chronically weak in the legs however today was unable to get up due to the weakness. He has a chronic history of alcohol abuse and nutrition is poor. His last drink was at 4 PM this afternoon. He does endorse some mild tremors, headache, chronic abd pain, and improving shortness of breath. Denies fever, chest pain,incontinence, diarrhea, nausea, vomiting. Principal Dx & Hospital Course #1 = Principal Diagnosis (1) Spinal stenosis at L4-L5 level: MRI lumbar spine obtained due to prior MRI showing significant disease and his ongoing b/l LE weakness, falls, neuropathy Shows "L4-L5: There is broad-based posterior disc bulge. This impinges in the transiting nerve roots and may tether the cauda equina at this level. In conjunction with anterolisthesis, there is moderate central canal stenosis at this level with a minimum AP diameter of 6 mm. Lateral disc bulges contribute to bilateral subarticular stenosis and likely impinge in the exiting bilateral L4 nerve roots. In conjunction with facet arthropathy, there is moderate to severe bilateral neural foraminal stenosis at this level, right greater than left. L5-S1: There is broad-based posterior disc bulge. This abuts the transiting nerve roots. There is minimal inferior central disc extrusion, seen on axial image #7. Lateral disc bulges contribute to bilateral subarticular stenosis, right greater than left. This may impinge in the exiting right L5 nerve root. In conjunction with facet arthropathy, there is moderate to severe right and mild to moderate left neural foraminal stenosis." Ortho spine on consult, appreciate recs Due to his alcohol abuse, patient not a candidate for surgery he will need at least 3-6 months of abstinence and also optimized nutrition before he would be considered for surgery f/u with Dr. Kim in 2 months (2) Alcohol withdrawal: AUD with withdrawal, now resolved after Librium taper no prn ativan needed encouraged abstinence from EtOH continue MVI, thiamine, folic acid (3) Weakness: Lower extremity weakness largely due to lumbar spinal stenosis as seen on MRI Continue PT B12 and folate normal on labs in 07/2022 (4) Hypomagnesemia: likely 2/2 previous EtOH use, poor nutrition replaced (5) Pancytopenia: 2nd to alcohol and bone marrow suppression from such TSH wnl B12 level 07/2022 wnl Folate level 07/2022 wnl CBC 10/11 improved-platelets now normal, hgb stable at 10, WBC normal (6) Hypertension: BPs controlled cont metoprolol succ 25mg daily titrate as needed (7) Tobacco use disorder: cont nicoderm patch 21mg/day (8) Tethering of spinal cord: Spine ortho on consult (9) Elevated lipase: Mild pancreatitis due to alcohol use now resolved (10) Abdominal pain: suspect alcoholic gastritis (could even have PUD - in addition to etoh he takes motrin at home for pain) +/- mild pancreatitis increased PPI to BID dosing and added carafate 1gm QID --> now resolved--> continue Protonix bid x 1 month, then resume once daily dosing. Dc carafate now avoid nsaids Plan Dispo-Medically stable for discharge to SNF today at [facility] Discharge Exam Constitutional WD/WN, vitals as above Respiratory normal respiratory effort, lungs clear to auscultation Cardiovascular RRR, no murmur, no edema Musculoskeletal Extremities: extremities normal to inspection Updated Medication List Medication Instructions Recorded Confirmed Type multivitamin 1 tab PO DAILY 08/13/21 09/30/22 History thiamine HCl (vitamin B1) 100 mg 100 mg PO QAM #30 tabs 06/14/22 09/30/22 Rx tablet folic acid 1 mg tablet 1 mg PO DAILY 07/11/22 09/30/22 History buspirone 10 mg tablet 10 mg PO BID #180 tabs 07/18/22 09/30/22 Rx metoprolol succinate 25 mg 25 mg PO DAILY #90 tabs 07/18/22 09/30/22 Rx tablet,extended release 24 hr calcium carbonate 600 mg-vitamin 1 cap PO DAILY #1 cap 07/25/22 09/30/22 Rx D3 25 mcg (1,000 unit) capsule magnesium oxide 400 mg PO DAILY #30 caps 08/04/22 09/30/22 Rx pantoprazole 40 mg tablet,delayed 40 mg PO DAILY #90 tabs 09/27/22 09/30/22 Rx release fluoxetine 40 mg capsule 40 mg PO DAILY 09/30/22 09/30/22 History trazodone 50 mg tablet 50 mg PO HS 09/30/22 09/30/22 History acetaminophen 325 mg tablet 650 mg PO Q4H PRN pain #30 tabs 10/13/22 Rx hydroxyzine HCl 25 mg tablet 25 mg PO HS PRN anxiety #30 tabs 10/13/22 Rx nicotine 21 mg/24 hr daily 21 mg transdermal QAM #14 ea 10/13/22 Rx transdermal patch (Nicoderm CQ) Hospital Stay Data Consultations 09/30/22 20:01 ED Decision to Admit Stat 10/02/22 17:07 Consult Orthopedic Spine Surgery Routine Diagnostic Imagining Performed 10/02/22 08:36 MR lumbar spine wo con Routine Pending Results Patient Have Any Pending Studies at Discharge: No Discharge Instructions Given to Patient (Per Discharging Provider) Please continue PT/OT to improve your ability to ambulate. Please continue to abstain from alcohol use. You can continue the Protonix twice a day for 1 month for your gastritis and then resume it once daily after that. Follow up with Dr. Kim to be re-evaluated for spine surgery in 2 more months. Total Time Total Time Spent Total Time Spent (In Minutes): 35 min Coding Level of Care Code 28018 INP/OBS DISCH >30 MIN Diagnoses Spinal stenosis at L4-L5 level M48.061 Alcohol withdrawal F10.939 Weakness R53.1 Hypomagnesemia E83.42 Pancytopenia D61.818 Hypertension I10 Tobacco use disorder F17.200 Tethering of spinal cord Q06.8 Elevated lipase R74.8 Abdominal pain R10.9
== END 2022-10-13 16:41 | DRG 551 ==
LOC: ED 16:58 → 2S 21:06 → SUATTDRO 21:06 → 2S 10-01 01:36 → 3W 10-11 17:53
DX: K21.9 Gastro-esophageal reflux disease without esophagitis; K29.20 Alcoholic gastritis without bleeding; D61.818 Other pancytopenia; E83.42 Hypomagnesemia; F10.239 Alcohol dependence with withdrawal, unspecified; K85.20 Alcohol induced acute pancreatitis without necrosis or infection; G62.89 Other specified polyneuropathies; M43.16 Spondylolisthesis, lumbar region; R94.31 Abnormal electrocardiogram [ECG] [EKG]; I10 Essential (primary) hypertension; F41.9 Anxiety disorder, unspecified; M48.062 Spinal stenosis, lumbar region with neurogenic claudication; K76.0 Fatty (change of) liver, not elsewhere classified; F17.210 Nicotine dependence, cigarettes, uncomplicated; M54.16 Radiculopathy, lumbar region

== ENCOUNTER 2023-01-11 11:22 | Inpatient (IN) ==
[2023-01-11] MEDS ORDERED: LORazepam 2 MG/1 ML VIAL IV STA ×2 (11:40→13:38)
--- NOTE | 2023-01-11 12:04 | Emergency Department Note ---
Impression & Plan Alcohol withdrawal, Hypomagnesemia, Acute hypokalemia ED Provider Note HISTORY OF PRESENT ILLNESS: Patient is a 52-year-old male presenting with alcohol withdrawal. Patient reports that he is a chronic alcoholic. He started drinking again 2 months ago after a 6-week stent at sobriety. Patient reports that he last drank earlier this morning, as he was trying to detox at home but became very shaky and short of breath and felt like his heart was racing. Reports that he does have a history of seizures with withdrawal, his last seizure being 15 years ago. He states that prior to this morning, his last drink was yesterday evening. He drank this morning to try to prevent his withdrawal symptoms. He is interested in getting sober again. He reports he drinks 2-3 large cans of 4 Douglas's a day. He denies any other recreational drug use. Currently denies any chest pain or shortness of breath. He reports he has not been eating over the last few days secondary to poor appetite. Patient denies any nausea, but does report he vomited earlier today. ROS: as above PHYSICAL EXAM: Constitutional: Patient appears in no acute distress. HENT: Head: Normocephalic and atraumatic. Eyes: EOMI, PERRL Mouth/Throat: Mucous membranes moist. Neck: Trachea midline. Neck supple. Cardiovascular: Tachycardic with regular rhythm. No murmurs, rubs or gallops. Intact distal pulses. Pulmonary/Chest: No respiratory distress. Breath sounds clear and equal bilaterally. No wheezes or rales. Abdominal: Abdomen soft, no tenderness, rebound or guarding. Musculoskeletal: No edema, tenderness or deformity noted. Skin: Warm and dry. No rash, erythema, pallor or cyanosis Psychiatric: Appropriate mood and affect for situation. Neurological: Alert and keenly responsive. CN II-XII grossly intact, moving all extremities equally and fully. Patient does have notable tremors at rest in the bilateral upper extremities. MDM: - Vitals signs showed hypertension and tachycardia - Patient was tachycardic and very tremulous on initial examination. His alcohol withdrawal severity score was 13. He was given 1 mg of IV ativan - History obtained via patient. Patient presents with alcohol withdrawal. Patient reports he is a chronic alcoholic and tried stopping to drink last night. However, he was very shaky this morning and tried to alleviate some of his withdrawal symptoms with drinking alcohol. He states he has been drinking significant amounts over the last 2 months. He previously had a 6-week stent at sobriety. Currently denies any chest pain or shortness of breath. Reports an episode of vomiting earlier today. - Chronic conditions affecting care: HTN; anxiety/depression; alcohol abuse - Differential diagnoses include, but are not limited to: Electrolyte abnormality; ACS; alcohol withdrawal - Order placed for continuous cardiac monitoring. At this time, monitor showed rate of 100 bpm with normal sinus rhythm, per my interpretation. - External medical records reviewed. Patient's PCP note from 11/23/2022 was reviewed. He had previously been on naltrexone as prescribed by [place] for his alcohol abuse. - Laboratory workup interpreted by myself showed normal WBC; hypokalemia (K 3.1); elevated anion gap (15); hypocalcemia (Ca 8.1); hypomagnesemia (Mg 1.0); elevated alcohol (62.4) - Patient given 2g IV magnesium in ER. Given 1L banana bag (thiamine + folic acid + multivitamin in NS) - Patient's HR and tremors improved after 1 mg of IV Ativan. - Discussion was had with social science teacher about patient's case and need for admission - Hospitalist consulted for admission - [facility] 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 Chronic alcohol use GI bleed Hypertension Hypertensive urgency Hypokalemia Hyponatremia Left foot drop Metabolic acidosis Nausea Pancreatitis Sensory polyneuropathy Smokes 1 pack of cigarettes per day Surgical History No pertinent past surgical history Family History Other Adopted Social History Smoking Status: Current some day smoker Tobacco Type: Cigarettes packs per day: 1; Cigarettes Per Day: pack/day; Second Hand Exposure: No; Do You Dip or Chew Tobacco: No; Hx Alcohol Use: Yes Alcohol type: beer and hard liquor Alcohol Intake Frequency Comment: 1/2 to one 5th of vodka daily, some beer Hx Substance Use: Yes Preferred Language: Bulgarian Communication Ability: Effective Visual Impairment: No Limitations Hearing Ability: Normal Speed Operator Required: No Beliefs That Will Affect Care: None marital status: Single Current Living Situation: Alone current occupational status: previously employed current occupation: Recently lost job working in an [employer] service How many Children do You have: 0 Feels Safe at Home: Yes Childhood Exposure to Second-Hand Smoke: Yes Diet: regular Dental Care, Regularly: No Physical Activity Frequency: Does not Exercise Seatbelt Use: always Sunscreen Use: No Assistive Devices: None Allergies Allergies Allergy/AdvReac Type Severity Reaction Status Date / Time No Known Allergies Allergy Verified 11/23/22 13:04 Home Meds Home Medications Medication Instructions Recorded Confirmed multivitamin 1 tab PO DAILY 08/13/21 01/11/23 folic acid 1 mg tablet 1 mg PO DAILY 07/11/22 01/11/23 fluoxetine 40 mg capsule 40 mg PO DAILY 09/30/22 01/11/23 trazodone 50 mg tablet 50 mg PO HS 09/30/22 01/11/23 Previous Rx's Medication Instructions Recorded calcium carbonate 600 mg-vitamin 1 cap PO DAILY #1 cap 07/25/22 D3 25 mcg (1,000 unit) capsule magnesium oxide 400 mg PO DAILY #30 caps 08/04/22 acetaminophen 325 mg tablet 650 mg PO Q4H PRN pain #30 tabs 10/13/22 hydroxyzine HCl 25 mg tablet 25 mg PO HS PRN anxiety #30 tabs 10/13/22 buspirone 10 mg tablet 10 mg PO BID #180 tabs 11/06/22 pantoprazole 40 mg tablet,delayed 40 mg PO BID #180 tabs 12/04/22 release thiamine HCl (vitamin B1) 100 mg 100 mg PO QAM #30 tabs 12/04/22 tablet metoprolol succinate 25 mg 25 mg PO DAILY #90 tabs 01/02/23 tablet,extended release 24 hr Results & Data (ED) Vital Signs Vital Signs - 24 hr 01/11/23 11:30 01/11/23 12:02 01/11/23 12:28 Temperature 36.6 C Temperature Source Temporal Artery Scan Pulse Rate 116 H 98 H Pulse Rate [Bilateral] 104 H Respiratory Rate 18 20 Respiratory Effort / Characteristics Non-Labored Spontaneous Respiratory Depth Normal Respiratory Pattern Regular Blood Pressure 177/110 H Blood Pressure [Right Arm] 163/111 H Blood Pressure Mean 132 Blood Pressure Mean [Right Arm] 128 Blood Pressure Position Sitting Pulse Oximetry 98 98 Oxygen Delivery Method Room Air Sepsis Recent Fever Within 48 Hours No Sepsis New/Unexplained Change in Mental Status N/A Sepsis Action Taken by Nursing No Action Required 01/11/23 12:53 Temperature Temperature Source Pulse Rate Pulse Rate [Bilateral] 101 H Respiratory Rate 22 Respiratory Effort / Characteristics Respiratory Depth Respiratory Pattern Blood Pressure Blood Pressure [Right Arm] 153/110 H Blood Pressure Mean Blood Pressure Mean [Right Arm] 124 Blood Pressure Position Pulse Oximetry 98 Oxygen Delivery Method Room Air Sepsis Recent Fever Within 48 Hours Sepsis New/Unexplained Change in Mental Status Sepsis Action Taken by Nursing Laboratory Data 01/11/23 11:56 01/11/23 11:56 Lab Results 01/11/23 01/11/23 01/11/23 Range/Units 11:56 11:56 11:56 WBC 8.95 (4.8-10.8) K/ul RBC 3.50 L (4.70-6.10) M/uL Hgb 12.1 L (14.0-18.0) g/dl Hct 33.3 L (42.0-52.0) % MCV 95.1 (80.0-100.0) fL MCH 34.6 H (25.0-34.0) pg MCHC 36.3 H (32.0-36.0) g/dL RDW Std Deviation 54.0 H (36.4-46.3) fL RDW Coeff of Arturo 15.4 H (11.5-14.5) % Plt Count 200 (130-400) K/uL MPV 9.6 (9.4-12.4) fL Immature Gran % (Auto) 0.2 % Neut % (Auto) 89.9 % Lymph % (Auto) 4.4 % [place] % (Auto) 5.3 % Eos % (Auto) 0.0 % Baso % (Auto) 0.2 % Neut # (Auto) 8.05 H (1.40-6.50) K/uL Lymph # (Auto) 0.39 L (1.20-3.40) K/uL [place] # (Auto) 0.47 (0.11-0.59) K/uL Eos # (Auto) 0.00 (0.00-0.50) K/uL Baso # (Auto) 0.02 (0.00-0.20) K/uL Immature Gran # (Auto) 0.02 (0.01-0.20) K/uL PT (9.0-12.0) Seconds INR (0.9-1.1) APTT (21.0-31.0) Seconds PTT Ratio Sodium 136 (136-145) mmol/L Potassium 3.1 L (3.5-5.1) mmol/L Chloride 102 (98-107) mmol/L Carbon Dioxide 19 L (21-32) mmol/L Anion Gap 15 H (3-11) BUN 7 (6-23) mg/dl Creatinine 0.45 L (0.6-1.4) mg/dl Est Cr Clr Drug Dosing Not Reportable Est GFR ( Amer) 149.7 ml/min Est GFR (Non-Af Amer) 129.2 ml/min BUN/Creatinine Ratio 15.6 (10-20) Glucose 134 H (70-99(Fasting)) mg/dl Calcium 8.1 L (8.6-10.3) mg/dl Magnesium 1.0 L (1.7-2.4) mg/dl Total Bilirubin 1.2 H (0.2-1.0) mg/dl AST 25 (13-39) U/L ALT 9 (7-52) U/L Alkaline Phosphatase 177 H (34-104) U/L Total Protein 6.5 (6.0-8.3) gm/dl Albumin 3.4 (3.4-5.0) gm/dl Globulin 3.1 (2.5-4.0) gm/dl Albumin/Globulin Ratio 1.1 (0.9-2) Folate Ethyl Alcohol mg/dL 62.4 H (<10.0) mg/dl 01/11/23 01/11/23 Range/Units 11:56 11:56 WBC (4.8-10.8) K/ul RBC (4.70-6.10) M/uL Hgb (14.0-18.0) g/dl Hct (42.0-52.0) % MCV (80.0-100.0) fL MCH (25.0-34.0) pg MCHC (32.0-36.0) g/dL RDW Std Deviation (36.4-46.3) fL RDW Coeff of Arturo (11.5-14.5) % Plt Count (130-400) K/uL MPV (9.4-12.4) fL Immature Gran % (Auto) % Neut % (Auto) % Lymph % (Auto) % [place] % (Auto) % Eos % (Auto) % Baso % (Auto) % Neut # (Auto) (1.40-6.50) K/uL Lymph # (Auto) (1.20-3.40) K/uL [place] # (Auto) (0.11-0.59) K/uL Eos # (Auto) (0.00-0.50) K/uL Baso # (Auto) (0.00-0.20) K/uL Immature Gran # (Auto) (0.01-0.20) K/uL PT 13.3 H (9.0-12.0) Seconds INR 1.2 H (0.9-1.1) APTT 27.6 (21.0-31.0) Seconds PTT Ratio 1.0 Sodium (136-145) mmol/L Potassium (3.5-5.1) mmol/L Chloride (98-107) mmol/L Carbon Dioxide (21-32) mmol/L Anion Gap (3-11) BUN (6-23) mg/dl Creatinine (0.6-1.4) mg/dl Est Cr Clr Drug Dosing Est GFR ( Amer) ml/min Est GFR (Non-Af Amer) ml/min BUN/Creatinine Ratio (10-20) Glucose (70-99(Fasting)) mg/dl Calcium (8.6-10.3) mg/dl Magnesium (1.7-2.4) mg/dl Total Bilirubin (0.2-1.0) mg/dl AST (13-39) U/L ALT (7-52) U/L Alkaline Phosphatase (34-104) U/L Total Protein (6.0-8.3) gm/dl Albumin (3.4-5.0) gm/dl Globulin (2.5-4.0) gm/dl Albumin/Globulin Ratio (0.9-2) Folate Cancelled Ethyl Alcohol mg/dL (<10.0) mg/dl Administered Medications Multivitamins 10 ml/ Thiamine HCl 100 mg/ Folic Acid 1 mg/Sodium Chloride 1,011.2 mls @ 500 mls/hr IV .Q2H2M ONE Stop: 01/11/23 14:15 Last Admin: 01/11/23 12:50 Dose: 500 mls/hr Documented By: EM Magnesium Sulfate/Dextrose (Magnesium Sulfate / D5w) 1 gm in 100 mls @ 100 mls/hr IV Q1H SAMMY Stop: 01/11/23 14:28 Last Admin: 01/11/23 12:50 Dose: 100 mls/hr Documented By: EM Discontinued Medications Lorazepam (Lorazepam 2 Mg/1 Ml Vial) 1 mg IV NOW STA Stop: 01/11/23 11:41 Last Admin: 01/11/23 11:56 Dose: 1 mg Documented By: MMG Discharge Plan Visit Data Chief Complaint: Alcohol Withdrawal Stated Complaint: ALCOHOL WITHDRAWAL ED Provider: Francisca Henriquez Discharge Problem: Alcohol withdrawal, Hypomagnesemia, Acute hypokalemia Forms Stand Alone Forms: [facility], Suicide Prevention Resources Prescriptions Prescriptions: No Action calcium carbonate-vitamin D3 600 mg-25 mcg (1,000 unit) capsule 1 cap PO DAILY Qty: 1 0RF magnesium oxide 400 mg magnesium capsule 400 mg PO DAILY Qty: 30 1RF buspirone 10 mg tablet 10 mg PO BID Qty: 180 1RF pantoprazole 40 mg tablet,delayed release (DR/EC) 40 mg PO BID Qty: 180 3RF Rx Instructions: TAKE 1 TABLET BY MOUTH EVERY DAY thiamine HCl (vitamin B1) 100 mg tablet 100 mg PO QAM Qty: 30 5RF metoprolol succinate 25 mg tablet extended release 24 hr 25 mg PO DAILY Qty: 90 3RF multivitamin Tablet 1 tab PO DAILY folic acid 1 mg tablet 1 mg PO DAILY Rx Instructions: TAKE 1 TAB ORALLY DAILY IN THE MORNING fluoxetine 40 mg capsule 40 mg PO DAILY trazodone 50 mg tablet 50 mg PO HS acetaminophen 325 mg Tablet 650 mg PO Q4H PRN (Reason: pain) Qty: 30 0RF hydroxyzine HCl 25 mg Tablet 25 mg PO HS PRN (Reason: anxiety) Qty: 30 0RF Referrals Referrals: Kvng Mcghee III, CRNP [Primary Care Provider] -
[2023-01-11] MEDS ORDERED: MULTI-VITAMIN INFUSION 10 ML, THIAMINE HCL 100 MG, FOLIC ACID 1 MG in SODIUM CHLORIDE 0... IV ONE (12:14)
[2023-01-11 12:16] LABS: Basophils # (auto) 0.02 K/uL (0.00-0.20); Basophils % (auto) 0.2 %; Hematocrit (blood only) 33.3 % (42.0-52.0); Hemoglobin 12.1 g/dl (14.0-18.0); Immature Granulocytes # (auto) 0.02 K/uL (0.01-0.20); Immature Granulocytes % (auto) 0.2 %; Lymphocytes # (auto) 0.39 K/uL (1.20-3.40); Lymphocytes % (auto) 4.4 %; Mean Corpuscular Hemoglobin 34.6 pg (25.0-34.0); Mean Corpuscular Hgb Conc 36.3 g/dL (32.0-36.0); Mean Corpuscular Volume 95.1 fL (80.0-100.0); Mean Platelet Volume 9.6 fL (9.4-12.4); Monocytes # (auto) 0.47 K/uL (0.11-0.59); Monocytes % (auto) 5.3 %; Neutrophils # (auto) 8.05 K/uL (1.40-6.50); Neutrophils % (auto) 89.9 %; Platelet Count 200 K/uL (130-400); RDW Coefficient of Variation 15.4 % (11.5-14.5); White Blood Count 8.95 K/ul (4.8-10.8)
[2023-01-11 12:26] LABS: Albumin Level 3.4 gm/dl (3.4-5.0); Anion Gap 15 (3-11); Bilirubin,Total 1.2 mg/dl (0.2-1.0); Calcium 8.1 mg/dl (8.6-10.3); Carbon Dioxide 19 mmol/L (21-32); Chloride 102 mmol/L (98-107); Potassium 3.1 mmol/L (3.5-5.1); Sodium 136 mmol/L (136-145)
[2023-01-11 12:32] LABS: Alanine Aminotransferase 9 U/L (7-52); Albumin Globulin Ratio 1.1 (0.9-2); Alkaline Phosphatase 177 U/L (34-104); Aspartate Aminotransferase 25 U/L (13-39); BUN Creatinine Ratio 15.6 (10-20); Blood Urea Nitrogen 7 mg/dl (6-23); Est GFR (African American) 149.7 ml/min; Est GFR (Non-African American) 129.2 ml/min; Globulin 3.1 gm/dl (2.5-4.0); Glucose 134 mg/dl (70-99(Fasting)); Total Protein 6.5 gm/dl (6.0-8.3)
[2023-01-11] MEDS: MAGNESIUM SULFATE / D5W 1 GM/100 ML BAG IV SCH ×5 (12:50→22:27)
[2023-01-11 13:13] LABS: INR 1.2 (0.9-1.1); Partial Thromboplastin Time 27.6 Seconds (21.0-31.0); Prothrombin Time 13.3 Seconds (9.0-12.0)
[2023-01-11] MEDS ORDERED: Ativan IV Alcohol Withdrawal--Active Protocol IV PRN (13:15)
[2023-01-11] MEDS ORDERED: chlordiazePOXIDE ALCOHOL WITHDRAWL 50MG PO STA (13:15)
[2023-01-11] MEDS ORDERED: LORazepam 2 MG/1 ML VIAL IV PRN ×2 (13:15)
--- NOTE | 2023-01-11 13:17 | History & Physical Report ---
Date of Service January 11, 2023 Assessment & Plan (1) Alcohol withdrawal: Plan: -Admit to the PCU on tele -Currently stable -Long hx of alcohol abuse with multiple previous admissions for alcohol withdrawal -Tried to wean himself off alcohol approximately 2 days ago, has had significant withdrawal symptoms since -Normally drinks 3-4 large cans of [employer] daily, last drink was this am when he had two cans of hard seltzer -Alcohol level in the ED is 62, patient appears to be in active withdrawal -S/P one banana bag, 1mg IV ativan, and 2 gm IV mag-sulfate in the ED -Will give 1 mg IV ativan now -Patient has responded well to Librium on past admissions, will start full dose taper now -Continue AWSS active protocol, monitor on tele, seizure precautions -Will continue IV hydration as he appears significantly dehydrated on exam -Folate and B12 levels WNL, will continue PO dosing tomorrow -Patient is interested in rehab on discharge, will consult case management -BL SCD's for DVT PPX for now -Will start clear liquid diet, advance as tolerated -AM CBC, CMP, Mag, PT/INR (2) Tachycardia: Plan: -Patient noted to be tachycardic with HR in the 110's -Obtaining ECG on admission as there was not an ECG obtained in the ED -Likely multifactorial including acute alcohol withdrawal, dehydration, low mag/potassium levels, and possible reflex tachycardia from non-compliance with metoprolol -HR has improved with initial treatment in the ED -Will FU with ECG and continue to monitor on tele -Continue medical withdrawal tx, IV fluids, and replete electrolytes as needed (3) Shortness of breath: Plan: -Patient has noted increased SOB/CABELLO recently -Has been stable on RA -No leukocytosis, fever, chest pain, cough, or signs of volume overload -Will FU ECG and obtain chest xray and full respiratory biofire for further evaluation -Continue to monitor on tele (4) Hypomagnesemia: Plan: -Noted to be 1.0 today -Likely due to alcohol abuse and recent diarrhea -Will FU with ECG on admission -S/P 2 bags, 1gm IV mag sulfate in the ED, susie give another 2 bags while down in the ED and continue IV repletion overnight -Monitor am mag levels, monitor on tele, continue home PO mag that he had stopped (5) Acute hypokalemia: Plan: -Noted to be 3.1 today -Likely multifactorial including low mag, malnutrition, vomiting, and alcohol abuse -Will give 40 meq PO KCL q2h x 2 doses on admission -Will FU on ECG, monitor on tele -FU am electrolytes and replete as needed (6) QT prolongation: Plan: -QTc prolonged at 526 on admission ECG -Continue to monitor on tele, continue to replete mag and potassium -Would QT prolonging medications until WNL (7) Abdominal pain: Plan: -Patient has mild lower abdominal pain -Abdominal exam is benign -No urinary symptoms -Has been having a week of non-bloody diarrhea, may be gastroenteritis -Will obtain CT of the abd/pelvis wo con for further evaluation with his elevated INR, elevated bili, and recent diarrhea -Will obtain stool studies and C. diff PCR (8) Elevated bilirubin: Plan: -Likely due to his alcohol abuse and liver disease; not on systemic anticoagulation -See abdominal pain for rest of workup -Monitor daily CMP (9) Anemia: Plan: -Stable -Continue B12 and folate daily (10) Diarrhea: Plan: -See abdominal pain -No recent abx -Follow stool studies, C. diff PCR, and CT abd/pelvis (11) Hypertension: Plan: -Currently stable -Likely due to alcohol withdrawal and not taking his metoprolol consistently -BP has improved after initial dose of ativan in the ED -Will give his am dose of metoprolol on admission, continue daily -Continue treatment o alcohol withdrawal Plan The patient was discussed with Dr. Ewing at the time of the admission History of Present Illness Chief Complaint: Alcohol withdrawal Primary Care Provider: Kvng Mcghee III, ANTHONY Uday is a 52 year old male with a PMHx of anxiety/depression, alcohol abuse, lumbar radiculopathy, and HTN who presented to the [facility] ED on 01/11 due to alcohol withdrawal. In the ED he was noted to be tachycardic with HR of 116 and hypertensive at 177/110 but otherwise stable. Labs were significant for an INR of 1.2, potassium of 3.1, AG of 16 with Bicarb of 19, calcium of 8.1, mag of 1.0, total bili of 1.2, alk phos of 177, and alcohol level of 62. Prior to admission the patient was given a banana bag, ordered 2 bags of 1gm IV mag- sulfate, and 1 mg IV ativan. We were asked to admit the patient for medical alcohol withdrawal treatment. At the time of the exam the patient was lying in bed in no acute distress but appears anxious and tremulous. He states that he started to drink again approximately 2 months ago. There was not a specific trigger that made him start to drink again but that he lives alone and gets lonely/bored. He has been drinking 3-4 large four miguel cans daily. He wanted to start weaning himself a few days ago but has been experiencing significant alcohol withdrawal symptoms since. He has been having chills, night sweats, tremors, significant anxiety, decreased appetite, nausea, and non-bloody emesis. He confirms that he has had a withdrawal seizure in the past. When asked, he states that he has been experiencing mild lower abdominal pain which has not radiated. He has had 3-4 episodes daily of non-bloody diarrhea over the past week. He denies recent antibiotic use. He has not been taking his prescribed medications consistently, he had none today. He drank 2 cans of hard seltzer this am to try and reduce the severity of his withdrawal symptoms, this made him nauseous. When asked, he denies auditory, visual, and tactile hallucinations. He denies chest pain but has been noticing increased CABELLO over the past few days. He denies recent fever, cough, dysuria, hematuria, melena, LE swelling, and recent trauma. We discussed code status, he wishes to be a full code and for his sister to make medical decision for him if he cannot make them himself. Please refer to Dr. Ewing's attestation for any changes to the treatment plan Allergies Allergy/AdvReac Type Severity Reaction Status Date / Time No Known Allergies Allergy Verified 01/11/23 16:54 Home Medications Medication Instructions Recorded Confirmed Type multivitamin 1 tab PO DAILY 08/13/21 01/11/23 History folic acid 1 mg tablet 1 mg PO DAILY 07/11/22 01/11/23 History magnesium oxide 400 mg PO DAILY #30 caps 08/04/22 01/11/23 Rx fluoxetine 40 mg capsule 40 mg PO DAILY 09/30/22 01/11/23 History trazodone 50 mg tablet 50 mg PO HS 09/30/22 01/11/23 History buspirone 10 mg tablet 10 mg PO BID #180 tabs 11/06/22 01/11/23 Rx thiamine HCl (vitamin B1) 100 mg 100 mg PO QAM #30 tabs 12/04/22 01/11/23 Rx tablet ibuprofen 200 mg tablet (Advil) 400 mg PO Q6H PRN Pain 01/11/23 01/11/23 History metoprolol succinate 25 mg 25 mg PO QAM 01/11/23 01/11/23 History tablet,extended release 24 hr pantoprazole 40 mg tablet,delayed 40 mg PO QAM 01/11/23 01/11/23 History release Past Med/Surg History Medical History Acute blood loss anemia Alcohol intoxication Alcohol withdrawal 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 Chronic alcohol use GI bleed Hypertension Hypertensive urgency Hypokalemia Hyponatremia Left foot drop Metabolic acidosis Nausea Pancreatitis Sensory polyneuropathy Smokes 1 pack of cigarettes per day Surgical History No pertinent past surgical history Family History Other Adopted Social History Smoking Status: Current every day smoker Tobacco Type: Cigarettes packs per day: 1; Cigarettes Per Day: 1 PPD; Second Hand Exposure: No; Do You Dip or Chew Tobacco: No; Hx Alcohol Use: Yes Alcohol type: other Alcohol Intake Frequency Comment: 1/2 to one 5th of vodka daily, some beer Hx Substance Use: No Preferred Language: Occitan Communication Ability: Effective Visual Impairment: No Limitations Hearing Ability: Normal Book Shelver Required: No Beliefs That Will Affect Care: None marital status: Single Current Living Situation: Alone current occupational status: previously employed current occupation: Recently lost job working in an [employer] service How many Children do You have: 0 Feels Safe at Home: Yes Childhood Exposure to Second-Hand Smoke: Yes Diet: regular Dental Care, Regularly: No Physical Activity Frequency: Does not Exercise Seatbelt Use: always Sunscreen Use: No Assistive Devices: Glasses Physical Exam Physical Exam: Physical Exam: General: In no acute distress, stated age, malnourished and chronically ill appearing but non-toxic HEENT: Normocephalic, atraumatic, no scleral icterus, pupils around round, symmetrical, and reactive to light, Dry mucus membranes, trachea midline, no thyromegaly Chest/Pulm: No respiratory distress, symmetrical chest expansion, clear breath sounds throughout Cardiac: tachycardic rate, regular rhythm, no murmurs noted Abdomen: Negative for ascites and bruising, normoactive bowel sounds, soft, non-tender to palpation throughout Musculoskeletal: Symmetrical and without signs of acute trauma, upper and lower extremities with full ROM, no atrophy, spasticity, or flaccidity Extremities: Radial, dorsalis pedis, and posterior tibial pulses are intact and symmetrical, no edema noted in the BL LE's Skin: Warm, dry, no rashes , lesions, or scars noted Neuro: Alert and oriented to person, place, month, year, and president, no focal defects, moderate tremor is noted at rest and with intention Psych: No acute distress, anxious, polite and cooperative during the exam Results & Data Results & Data Vital Signs (Past 12 Hours) Vital Signs Temp Pulse Pulse Resp BP BP Pulse Ox 01/11/23 12:53 101 H 22 153/110 H 98 01/11/23 12:28 98 H 01/11/23 12:02 104 H 20 163/111 H 98 01/11/23 11:30 36.6 C 116 H 18 177/110 H 98 O2 Del Method 01/11/23 12:53 Room Air 01/11/23 12:28 01/11/23 12:02 01/11/23 11:30 Room Air Laboratory Results Abnormal lab results 01/11/23 01/11/23 01/11/23 Range/Units 11:56 11:56 11:56 RBC 3.50 L (4.70-6.10) M/uL Hgb 12.1 L (14.0-18.0) g/dl Hct 33.3 L (42.0-52.0) % MCH 34.6 H (25.0-34.0) pg MCHC 36.3 H (32.0-36.0) g/dL RDW Std Deviation 54.0 H (36.4-46.3) fL RDW Coeff of Arturo 15.4 H (11.5-14.5) % Neut # (Auto) 8.05 H (1.40-6.50) K/uL Lymph # (Auto) 0.39 L (1.20-3.40) K/uL PT (9.0-12.0) Seconds INR (0.9-1.1) Potassium 3.1 L (3.5-5.1) mmol/L Carbon Dioxide 19 L (21-32) mmol/L Anion Gap 15 H (3-11) Creatinine 0.45 L (0.6-1.4) mg/dl Glucose 134 H (70-99(Fasting)) mg/dl Calcium 8.1 L (8.6-10.3) mg/dl Magnesium 1.0 L (1.7-2.4) mg/dl Total Bilirubin 1.2 H (0.2-1.0) mg/dl Alkaline Phosphatase 177 H (34-104) U/L Ethyl Alcohol mg/dL 62.4 H (<10.0) mg/dl 01/11/23 Range/Units 11:56 RBC (4.70-6.10) M/uL Hgb (14.0-18.0) g/dl Hct (42.0-52.0) % MCH (25.0-34.0) pg MCHC (32.0-36.0) g/dL RDW Std Deviation (36.4-46.3) fL RDW Coeff of Arturo (11.5-14.5) % Neut # (Auto) (1.40-6.50) K/uL Lymph # (Auto) (1.20-3.40) K/uL PT 13.3 H (9.0-12.0) Seconds INR 1.2 H (0.9-1.1) Potassium (3.5-5.1) mmol/L Carbon Dioxide (21-32) mmol/L Anion Gap (3-11) Creatinine (0.6-1.4) mg/dl Glucose (70-99(Fasting)) mg/dl Calcium (8.6-10.3) mg/dl Magnesium (1.7-2.4) mg/dl Total Bilirubin (0.2-1.0) mg/dl Alkaline Phosphatase (34-104) U/L Ethyl Alcohol mg/dL (<10.0) mg/dl ECG Additional Comments: Obtaining ECG at the time of the admission Code Status & VTE Plan Code Status Full code VTE Prophylaxis Plan VTE Prophylaxis will be ordered: Yes Supervising Physician Co-Signing Physician Notes I personally saw and examined the patient, reviewed imaging, EKG, labs and prior admission labs. I verified all kirk points and agree with Christiano Shirley PA-C with the following exceptions and/or additions: 52 year old male presents to the ER due to tremors, shortness of breath and palpitations trying to go through withdrawal at home. Drank alcohol last this morning but a small amount just to help with withdrawal symptoms. Current symptoms of tremors, anxiety and tachycardia. History of alcohol withdrawal seizure many years ago. No current hallucinations. O/E A&Ox3, HS increased rate, regular rhythm, Chest CTAB, Abdo SNT, no pedal edema, no focal neurological deficit, bilateral hand and upper extremity tremors A/P Alcohol withdrawal - Agree with Librium taper and lorazepam as needed given he did well on this regimen last admission in October. Nystagmus - given significant nystagmus on exam will treat with high dose IV thiamine although no clear encephalopathy to suggest Wernicke's PG Care Time/CCT Total # of Minutes Spent Total Time Spent with Patient: Total time spent is greater than 50% in coordination of care (as documented) at patient's floor/unit and/or counseling patient: Coding [place] [address] INT INP/OBS CARE 2/55MIN Patient Type Established Medical Decision Making Moderate Complexity Diagnoses Alcohol withdrawal F10.939 Tachycardia R00.0 Shortness of breath R06.02 Hypomagnesemia E83.42 Acute hypokalemia E87.6 QT prolongation R94.31 Abdominal pain R10.9 Elevated bilirubin R17 Anemia D64.9 Anemia type: unspecified type Diarrhea R19.7 Hypertension I10 (9) Anemia Anemia type: unspecified type Qualified Code(s): D64.9 - Anemia, unspecified
[2023-01-11 13:40] LABS: Folate (Folic Acid),Ser orPlas 12.08 ng/ml (>5.38)
[2023-01-11] MEDS ORDERED: FAMOTIDINE 20 MG TAB PO ONE (13:45)
[2023-01-11] MEDS ORDERED: PANTOprazole 40 MG TAB PO STA (13:45)
[2023-01-11 13:57] LABS: Acetaminophen < 3 ug/ml (10-30); Salicylate < 3.0 mg/dl (3.0-30)
--- NOTE | 2023-01-11 14:35 | CT Scan Report ---
ABDOMEN AND PELVIS CT WITHOUT CONTRAST CT DOSE: 755.75 mGy.cm HISTORY: Acute generalized abdominal pain elevated bili, alcohol withdrawal, abd pain TECHNIQUE: Multiaxial CT images of the abdomen and pelvis were performed without contrast. A dose lo wering technique was utilized adhering to the principles of ALARA. COMPARISON STUDY: 04/23/2022 FINDINGS: Trace pleural effusions with mild bibasilar subsegmental atelectasis. No free air. Limited study without the use of IV contrast. Diminutive spleen. Unchanged nodular thickening of the adrenal glands suggestive of hyperplasia. Hepatomegaly with advanced hepatic steatosis. No hepatic mass ident ified. Distended gallbladder with borderline wall thickening. Moderate interstitial and peripancreatic edema with trace fluid within the lesser sac. There are chikis ral peripancreatic fluid collections which include a multiloculated collection involving the pancreat ic tail abutting the lesser curvature of the stomach. This includes a thick-walled loculated portion measuring 4.9 x 2.2 cm on image 93 series 3. There is an additional collection anterior to the pancre atic body abutting the lesser curvature of the stomach measuring 6.1 x 3.0 cm on image 116. There is an additional hypodense focus measuring 2.1 cm involving the pancreatic head on image 121 which is fl uid attenuating. No hydronephrosis or urolith. Unremarkable kidneys. Wall thickening of the distal esophagus, distal s tomach and duodenum. Periesophageal and periduodenal inflammatory stranding. Borderline enlarged uppe r abdominal lymph nodes are likely reactive. Normal appendix. No acute fracture. IMPRESSION: 1. Limited exam without the use of IV contrast. 2. Acute pancreatitis with several peripancreatic fluid collections measuring up to 6 cm. 3. Likely reactive wall thickening of the stomach and duodenum. 4. Hepatomegaly with hepatic steatosis. 5. Mild gallbladder distention. 6. No bowel obstruction. Normal appendix. ACT 112: Negative or not required by law. The above report was generated using voice recognition software. It may contain grammatical, syntax o r spelling errors. Electronically signed by: Seymour Corcoran M.D. 01/11/2023 2:34 PM
[2023-01-11] MEDS: POTASSIUM CHLORIDE CRTAB 20 MEQ TABCR PO SCH ×2 (14:53→18:27)
[2023-01-11] MEDS: chlordiazePOXIDE HCl 25 MG CAP PO SCH ×2 (14:53→20:57)
[2023-01-11] MEDS ORDERED: LACTATED RINGER'S 1,000 ML IV ONE (14:56)
--- NOTE | 2023-01-11 15:05 | XRay Report ---
SINGLE VIEW CHEST CLINICAL HISTORY: Dyspnea. Alcohol withdrawal FINDINGS: An AP, portable, upright chest radiograph is compared to study dated 09/30/2022. The cardiom ediastinal silhouette is unremarkable. The lungs and pleural spaces are clear. No pneumothorax is see n. There are chronic/healed left-sided rib fractures. IMPRESSION: No active disease in the chest. ACT 112: Negative or not required by law. Electronically signed by: Mario Colindres M.D. 01/11/2023 3:04 PM
[2023-01-11] MEDS ORDERED: OPTIRAY 320 125ml IV ONE (15:31)
[2023-01-11] MEDS ORDERED: OPTIRAY 320 100ml IV ONE (15:32)
--- NOTE | 2023-01-11 16:13 | CT Scan Report ---
CT abd pelvis IV con only CLINICAL HISTORY: elevated LFT's, abd pain, diarrhea, alcoholic TECHNIQUE: Helical axial images of the abdomen and pelvis were obtained and displayed. Automated dose lowering techniques and/or adjustment according to patient size were utilized for this exam. This e xam was performed with intravenous contrast. CT DOSE: 751.13 mGy.cm COMPARISON: Comparison is made to CT abdomen pelvis 01/11/2023 FINDINGS: Lower chest: No acute abnormality. Liver: Hepatic steatosis is noted. Gallbladder and biliary tree: No calcified gallstones. Normal caliber wall. No intra- or extrahepatic biliary ductal dilation. Pancreas: Multiple cystic lesions are seen about the pancreas, similar in size to prior exam. There i s pancreatic parenchymal atrophy with dilated distal pancreatic duct, unchanged from prior exam. Spleen: Unremarkable. Adrenals: Unremarkable. Kidneys and ureters: Unremarkable. Bladder: Unremarkable. Reproductive organs: Unremarkable. Bowel: The appendix is normal. There is distal esophageal wall thickening. Lymph nodes Retroperitoneal: Unremarkable. Pelvic: Unremarkable. Mesenteric: Unremarkable. Peritoneum: Mild fat stranding is seen in the region of the pancreatic head, less prominent than in t he prior exam. Vessels: Atherosclerotic calcifications are seen. Abdominal wall: Unremarkable. Bones: Degenerative changes in the visualized spine. Grade 1 anterolisthesis is seen at L4-L5. No acu te fractures are seen. IMPRESSION: 1. Fat stranding about the pancreatic head is again seen, somewhat less prominent than in the prior exam. Clinical correlation is recommended to exclude acute pancreatitis. Duodenal wall thickening may be reactive. 2. Multiple peripancreatic fluid collections are seen. 3. Distal esophageal wall thickening which may represent gastritis. 4. Hepatic steatosis with possible steatohepatitis. ACT 112: Negative or not required by law. Electronically signed by: Tay Padilla M.D. 01/11/2023 4:12 PM
[2023-01-11 16:16] LABS: Adenovirus PCR Not Detected (NotDetected); Bordetella parapertussis PCR Not Detected (NotDetected); Bordetella pertussis PCR Not Detected (NotDetected); Chlamydia pneumoniae PCR Not Detected (NotDetected); Coronavirus 229E PCR Not Detected (NotDetected); Coronavirus CoV-2 (COVID19)PCR Not Detected (NotDetected); Coronavirus HKU1 PCR Not Detected (NotDetected); Coronavirus NL63 PCR Not Detected (NotDetected); Coronavirus OC43PCR Not Detected (NotDetected); Human Metapneumovirus PCR Not Detected (NotDetected); Influenza A PCR Not Detected (NotDetected); Influenza B PCR Not Detected (NotDetected); Mycoplasma pneumoniae PCR Not Detected (NotDetected); Parainfluenza Virus 1 PCR Not Detected (NotDetected); Parainfluenza Virus 2 PCR Not Detected (NotDetected); Parainfluenza Virus 3 PCR Not Detected (NotDetected); Parainfluenza Virus 4 PCR Not Detected (NotDetected); Respiratory Syncytial VirusPCR Not Detected (NotDetected); Rhinovirus/Enterovirus PCR Not Detected (NotDetected)
[2023-01-11 21:02] LABS: Amphetamines+Metham, Urine Neg (Neg); Barbiturates, Urine Neg (Neg); Benzodiazepine, Urine Neg (Neg); Cocaine, Urine Neg (Neg); MDMA (Ecstacy), Urine Neg (Neg); Methadone, Urine Neg (Neg); Opiate, Urine Neg (Neg); Phencyclidine, Urine Neg (Neg)
[2023-01-11] MEDS ORDERED: INFLUENZA VIRUS QUADRIVALENT VACCINE (IIV4) 0.5 ML SYR IM ONE (21:47)
[2023-01-11] MEDS: PANTOprazole 40 MG TAB PO SCH (22:25)
[2023-01-11] MEDS: busPIRone 5 MG TAB PO SCH (22:25)
[2023-01-11] MEDS: LORazepam 2 MG/1 ML VIAL IV PRN (22:56)
[2023-01-11] MEDS: THIAMINE HCL 500 MG in SODIUM CHLORIDE 0.9% 50 ML IV SCH (22:58)
[2023-01-12] MEDS: chlordiazePOXIDE HCl 25 MG CAP PO SCH ×4 (00:32→22:58)
[2023-01-12] MEDS: MAGNESIUM SULFATE / D5W 1 GM/100 ML BAG IV SCH (00:33)
[2023-01-12] MEDS: LORazepam 2 MG/1 ML VIAL IV PRN (02:46)
[2023-01-12 06:22] LABS: Hematocrit (blood only) 29.6 % (42.0-52.0); Hemoglobin 10.6 g/dl (14.0-18.0); Mean Corpuscular Hemoglobin 34.6 pg (25.0-34.0); Mean Corpuscular Hgb Conc 35.8 g/dL (32.0-36.0); Mean Corpuscular Volume 96.7 fL (80.0-100.0); Platelet Count 141 K/uL (130-400); RDW Coefficient of Variation 15.7 % (11.5-14.5); RDW Standard Deviation 55.8 fL (36.4-46.3); Red Blood Count 3.06 M/uL (4.70-6.10); White Blood Count 5.74 K/ul (4.8-10.8)
[2023-01-12 06:38] LABS: Alanine Aminotransferase 7 U/L (7-52); Albumin Globulin Ratio 1.1 (0.9-2); Albumin Level 2.9 gm/dl (3.4-5.0); Alkaline Phosphatase 145 U/L (34-104); Anion Gap 3 (3-11); Aspartate Aminotransferase 25 U/L (13-39); BUN Creatinine Ratio 16.3 (10-20); Bilirubin,Total 1.5 mg/dl (0.2-1.0); Blood Urea Nitrogen 7 mg/dl (6-23); Calcium 7.3 mg/dl (8.6-10.3); Carbon Dioxide 25 mmol/L (21-32); Chloride 108 mmol/L (98-107); Creatinine Clr Calc Pharmacy 185.5 ml/min; Est GFR (African American) > 150.0 ml/min; Est GFR (Non-African American) 131.6 ml/min; Globulin 2.6 gm/dl (2.5-4.0); Glucose 103 mg/dl (70-99(Fasting)); Magnesium 2.2 mg/dl (1.7-2.4); Potassium 3.5 mmol/L (3.5-5.1); Sodium 136 mmol/L (136-145); Total Protein 5.5 gm/dl (6.0-8.3)
[2023-01-12 06:53] LABS: INR 1.1 (0.9-1.1); Prothrombin Time 12.3 Seconds (9.0-12.0)
[2023-01-12] MEDS ORDERED: THIAMINE HCL 100 MG TAB PO SCH (09:00)
[2023-01-12] MEDS: busPIRone 5 MG TAB PO SCH ×2 (09:52→20:43)
[2023-01-12] MEDS: MAGNESIUM OXIDE 400 MG TAB PO SCH (09:53)
[2023-01-12] MEDS: MULTIVITAMIN TAB PO SCH (09:53)
[2023-01-12] MEDS: THIAMINE HCL 100 MG TAB PO SCH (09:54)
[2023-01-12] MEDS: FLUoxetine HCL 20 MG CAP PO SCH (09:55)
[2023-01-12] MEDS: METOPROLOL SUCC 25MG EXT REL TAB PO SCH (09:55)
[2023-01-12] MEDS: PANTOprazole 40 MG TAB PO SCH ×2 (09:56→20:44)
[2023-01-12] MEDS: FOLIC ACID 1 MG TAB PO SCH (09:56)
[2023-01-12] MEDS: THIAMINE HCL 500 MG in SODIUM CHLORIDE 0.9% 50 ML IV SCH ×3 (09:57→20:42)
--- NOTE | 2023-01-12 14:16 | Electrocardiogram Report ---
Test Reason : Blood Pressure : / mmHG Vent. Rate : 103 BPM Atrial Rate : 103 BPM P-R Int : 134 ms QRS Dur : 090 ms QT Int : 402 ms P-R-T Axes : 112 035 009 degrees QTc Int : 526 ms Sinus tachycardia with Premature atrial complexes Prolonged QT Abnormal ECG When compared with ECG of 01-OCT-2022 11:56, Premature atrial complexes are now Present Nonspecific T wave abnormality now evident in Inferior leads Confirmed by Dustin Cardozo ([id number]) on 01/12/2023 2:16:06 PM Referred By: REFERRED SELF Confirmed By:Migue Cardozo
--- NOTE | 2023-01-12 14:42 | Hospitalist Progress Note ---
Date of Service January 12, 2023 Assessment & Plan (1) Alcohol withdrawal: Plan: -Currently stable -Long hx of alcohol abuse with multiple previous admissions for alcohol withdrawal -Tried to wean himself off alcohol approximately 2 days ago, has had significant withdrawal symptoms since -Normally drinks 3-4 large cans of Four Lokos daily, last drink was this am when he had two cans of hard seltzer -Alcohol level in the ED is 62, patient appears to be in active withdrawal -Patient has responded well to Librium on past admissions, currently on Librium taper -Continue AWSS active protocol, monitor on tele, seizure precautions -Patient is interested in rehab on discharge, will consult case management - continue clear liquid diet, advance as tolerated (2) Tachycardia: Plan: -Patient noted to be tachycardic with HR in the 110's -Obtaining ECG on admission as there was not an ECG obtained in the ED -Likely multifactorial including acute alcohol withdrawal, dehydration, low mag/potassium levels, and possible reflex tachycardia from non-compliance with metoprolol -HR has improved with initial treatment in the ED -Will FU with ECG and continue to monitor on tele -Continue medical withdrawal tx, IV fluids, and replete electrolytes as needed (3) Shortness of breath: Plan: -Patient has noted increased SOB/CABELLO recently -Has been stable on RA -No leukocytosis, fever, chest pain, cough, or signs of volume overload EKG unremarkable Chest x-ray unremarkable Respiratory panel negative Most likely secondary to deconditioning (4) Hypomagnesemia: Plan: -Likely due to alcohol abuse and recent diarrhea resolved after repletion (5) Acute hypokalemia: Plan: -Likely multifactorial including low mag, malnutrition, vomiting, and alcohol abuse -Will give 40 meq PO KCL q2h x 2 doses on admission -Will FU on ECG, monitor on tele -FU am electrolytes and replete as needed (6) QT prolongation: Plan: -QTc prolonged at 526 on admission ECG -Continue to monitor on tele, continue to replete mag and potassium (7) Abdominal pain: Plan: -Patient has mild lower abdominal pain -Abdominal exam is benign -No urinary symptoms -Has been having a week of non-bloody diarrhea, may be gastroenteritis CT abdomen pelvis showed findings suggestive of mild acute pancreatitis. However clinically patient does not have severe abdominal pain or tenderness (8) Elevated bilirubin: Plan: -Likely due to his alcohol abuse and liver disease; not on systemic anticoagulation -See abdominal pain for rest of workup -Monitor daily CMP (9) Anemia: Plan: -Stable -Continue B12 and folate daily (10) Diarrhea: Plan: -See abdominal pain -No recent abx -Follow stool studies, C. diff PCR, CT abdomen did not show any etiology for diarrhea. (11) Hypertension: Plan: -Currently stable -Likely due to alcohol withdrawal and not taking his metoprolol consistently -BP has improved Continue metoprolol -Continue treatment of alcohol withdrawal Plan Admission and Anticipated Discharge Date Admission Date: January 11, 2023 Subjective per nurse, patient scores 2 on the CIWA protocol. He is shaking. No hallucinations. Review of Systems 2 Review of Systems: All systems reviewed & are unremarkable except as noted in Subjective Physical Exam Physical Exam: General: Awake, conversant Heart: S1, S2/regular rate and rhythm, no murmur rubs or gallops Lungs: Clear to auscultation bilaterally. Normal effort Abdomen: Soft/nontender/nondistended. No hepatosplenomegaly Extremities: No clubbing/cyanosis. No edema Behavior: Appropriate, cooperative Results & Data Results & Data Vital Signs (Past 12 Hours) Vital Signs Temp Pulse Pulse Resp BP Pulse Ox O2 Del Method 01/12/23 07:28 86 01/12/23 12:00 36.7 C 97 H 18 110/71 97 Room Air 01/12/23 07:53 36.6 C 94 H 16 120/79 99 Room Air 01/12/23 05:00 36.5 C 89 16 113/78 98 Room Air 01/12/23 02:53 36.8 C 95 H 18 136/88 99 Room Air Laboratory Results Abnormal lab results 01/11/23 01/12/23 01/12/23 Range/Units 14:37 05:48 05:48 RBC 3.06 L (4.70-6.10) M/uL Hgb 10.6 L (14.0-18.0) g/dl Hct 29.6 L (42.0-52.0) % MCH 34.6 H (25.0-34.0) pg RDW Std Deviation 55.8 H (36.4-46.3) fL RDW Coeff of Arturo 15.7 H (11.5-14.5) % PT 12.3 H (9.0-12.0) Seconds Chloride (98-107) mmol/L Creatinine (0.6-1.4) mg/dl Glucose (70-99(Fasting)) mg/dl Lactate 2.4 H* (0.4-2.0) mmol/L Calcium (8.6-10.3) mg/dl Total Bilirubin (0.2-1.0) mg/dl Alkaline Phosphatase (34-104) U/L Total Protein (6.0-8.3) gm/dl Albumin (3.4-5.0) gm/dl 01/12/23 Range/Units 05:48 RBC (4.70-6.10) M/uL Hgb (14.0-18.0) g/dl Hct (42.0-52.0) % MCH (25.0-34.0) pg RDW Std Deviation (36.4-46.3) fL RDW Coeff of Arturo (11.5-14.5) % PT (9.0-12.0) Seconds Chloride 108 H (98-107) mmol/L Creatinine 0.43 L (0.6-1.4) mg/dl Glucose 103 H (70-99(Fasting)) mg/dl Lactate (0.4-2.0) mmol/L Calcium 7.3 L (8.6-10.3) mg/dl Total Bilirubin 1.5 H (0.2-1.0) mg/dl Alkaline Phosphatase 145 H (34-104) U/L Total Protein 5.5 L (6.0-8.3) gm/dl Albumin 2.9 L (3.4-5.0) gm/dl PG Care Time/CCT Total # of Minutes Spent Total Time Spent with Patient: Total time spent is greater than 50% in coordination of care (as documented) at patient's floor/unit and/or counseling patient: Coding Level of Care Code 48048 SUB INP/OBS CARE 2/35MIN Diagnoses Alcohol withdrawal F10.939 Tachycardia R00.0 Shortness of breath R06.02 Hypomagnesemia E83.42 Acute hypokalemia E87.6 QT prolongation R94.31 Abdominal pain R10.9 Elevated bilirubin R17 Anemia D64.9 Anemia type: unspecified type Diarrhea R19.7 Hypertension I10 (9) Anemia Anemia type: unspecified type Qualified Code(s): D64.9 - Anemia, unspecified
[2023-01-12] MEDS: ACETAMINOPHEN 325 MG TAB PO PRN (23:46)
[2023-01-13 06:32] LABS: Hematocrit (blood only) 29.5 % (42.0-52.0); Hemoglobin 10.5 g/dl (14.0-18.0); Mean Corpuscular Hemoglobin 34.8 pg (25.0-34.0); Mean Corpuscular Hgb Conc 35.6 g/dL (32.0-36.0); Mean Corpuscular Volume 97.7 fL (80.0-100.0); Mean Platelet Volume 10.3 fL (9.4-12.4); Platelet Count 140 K/uL (130-400); RDW Coefficient of Variation 15.5 % (11.5-14.5); RDW Standard Deviation 55.8 fL (36.4-46.3); Red Blood Count 3.02 M/uL (4.70-6.10); White Blood Count 4.18 K/ul (4.8-10.8)
[2023-01-13 06:52] LABS: Alanine Aminotransferase 16 U/L (7-52); Albumin Level 2.9 gm/dl (3.4-5.0); Alkaline Phosphatase 136 U/L (34-104); Anion Gap 4 (3-11); Aspartate Aminotransferase 68 U/L (13-39); BUN Creatinine Ratio 23.7 (10-20); Bilirubin,Total 0.9 mg/dl (0.2-1.0); Blood Urea Nitrogen 9 mg/dl (6-23); Calcium 7.4 mg/dl (8.6-10.3); Carbon Dioxide 24 mmol/L (21-32); Chloride 106 mmol/L (98-107); Creatinine Clr Calc Pharmacy 210.2 ml/min; Est GFR (African American) > 150.0 ml/min; Est GFR (Non-African American) 138.5 ml/min; Globulin 2.8 gm/dl (2.5-4.0); Glucose 94 mg/dl (70-99(Fasting)); Magnesium 1.8 mg/dl (1.7-2.4); Potassium 3.4 mmol/L (3.5-5.1); Sodium 134 mmol/L (136-145); Total Protein 5.7 gm/dl (6.0-8.3)
[2023-01-13 06:57] LABS: INR 1.1 (0.9-1.1); Prothrombin Time 12.4 Seconds (9.0-12.0)
[2023-01-13] MEDS: chlordiazePOXIDE HCl 25 MG CAP PO SCH ×3 (08:38→23:32)
[2023-01-13] MEDS: busPIRone 5 MG TAB PO SCH ×2 (08:38→20:47)
[2023-01-13] MEDS: METOPROLOL SUCC 25MG EXT REL TAB PO SCH (08:39)
[2023-01-13] MEDS: FOLIC ACID 1 MG TAB PO SCH (08:39)
[2023-01-13] MEDS: FLUoxetine HCL 20 MG CAP PO SCH (08:40)
[2023-01-13] MEDS: MULTIVITAMIN TAB PO SCH (08:40)
[2023-01-13] MEDS: MAGNESIUM OXIDE 400 MG TAB PO SCH (08:40)
[2023-01-13] MEDS: THIAMINE HCL 500 MG in SODIUM CHLORIDE 0.9% 50 ML IV SCH ×3 (08:41→20:48)
[2023-01-13] MEDS: PANTOprazole 40 MG TAB PO SCH ×2 (08:41→20:51)
[2023-01-13] MEDS: ACETAMINOPHEN 325 MG TAB PO PRN ×3 (09:39→20:58)
--- NOTE | 2023-01-13 13:48 | Hospitalist Progress Note ---
Date of Service January 13, 2023 Assessment & Plan (1) Alcohol withdrawal: Plan: -Currently stable -Long hx of alcohol abuse with multiple previous admissions for alcohol withdrawal -Tried to wean himself off alcohol approximately 2 days ago, has had significant withdrawal symptoms since -Normally drinks 3-4 large cans of Four [employer] daily, last drink was this am when he had two cans of hard seltzer -Alcohol level in the ED is 62, patient appears to be in active withdrawal -Patient has responded well to Librium on past admissions, currently on Librium taper -Continue AWSS active protocol, monitor on tele, seizure precautions -Patient is interested in rehab on discharge, will consult case management - advance to a full liquid diet (2) Tachycardia: Plan: -Patient noted to be tachycardic with HR in the 110's -Likely multifactorial including acute alcohol withdrawal, dehydration, low mag/potassium levels, and possible reflex tachycardia from non-compliance with metoprolol -HR has improved with initial treatment in the ED -Continue medical withdrawal tx, IV fluids, and replete electrolytes as needed (3) Shortness of breath: Plan: -Patient has noted increased SOB/CABELLO recently -Has been stable on RA -No leukocytosis, fever, chest pain, cough, or signs of volume overload EKG unremarkable Chest x-ray unremarkable Respiratory panel negative Most likely secondary to deconditioning (4) Hypomagnesemia: Plan: -Likely due to alcohol abuse and recent diarrhea resolved after repletion (5) Acute hypokalemia: Plan: -Likely multifactorial including low mag, malnutrition, vomiting, and alcohol abuse (6) QT prolongation: Plan: -QTc prolonged at 526 on admission ECG -Continue to monitor on tele, continue to replete mag and potassium (7) Abdominal pain: Plan: -Patient has mild lower abdominal pain -Abdominal exam is benign -No urinary symptoms -Has been having a week of non-bloody diarrhea, may be gastroenteritis CT abdomen pelvis showed findings suggestive of mild acute pancreatitis. However clinically patient does not have severe abdominal pain or tenderness (8) Elevated bilirubin: Plan: -Likely due to his alcohol abuse and liver disease; not on systemic anticoagulation -See abdominal pain for rest of workup -Monitor daily CMP (9) Anemia: Plan: -Stable -Continue B12 and folate daily (10) Diarrhea: Plan: -See abdominal pain -No recent abx -Follow stool studies, C. diff PCR, CT abdomen did not show any etiology for diarrhea. (11) Hypertension: Plan: -Currently stable -Likely due to alcohol withdrawal and not taking his metoprolol consistently -BP has improved Continue metoprolol -Continue treatment of alcohol withdrawal Plan Admission and Anticipated Discharge Date Admission Date: January 11, 2023 Subjective patient feels well overall. Denies chest pain or shortness of breath. Accompanied by sister in the room. Says that he is still going through withdrawals but improving. Review of Systems Review of Systems: All systems reviewed & are unremarkable except as noted in Subjective Physical Exam Physical Exam: General: Awake, conversant. Mild tremors noted Heart: S1, S2/regular rate and rhythm, no murmur rubs or gallops Lungs: Clear to auscultation bilaterally. Normal effort Abdomen: Soft/nontender/nondistended. No hepatosplenomegaly Extremities: No clubbing/cyanosis. No edema Behavior: Appropriate, cooperative Results & Data Results & Data Vital Signs (Past 12 Hours) Vital Signs Temp Pulse Pulse Resp BP Pulse Ox O2 Del Method 01/13/23 12:05 36.7 C 63 17 96/70 L 100 Room Air 01/13/23 08:27 36.6 C 69 18 105/66 99 Room Air 01/13/23 04:00 36.9 C 67 16 122/84 98 Room Air Laboratory Results Abnormal lab results 01/13/23 01/13/23 01/13/23 Range/Units 05:30 05:30 05:30 WBC 4.18 L (4.8-10.8) K/ul RBC 3.02 L (4.70-6.10) M/uL Hgb 10.5 L (14.0-18.0) g/dl Hct 29.5 L (42.0-52.0) % MCH 34.8 H (25.0-34.0) pg RDW Std Deviation 55.8 H (36.4-46.3) fL RDW Coeff of Arturo 15.5 H (11.5-14.5) % PT 12.4 H (9.0-12.0) Seconds Sodium 134 L (136-145) mmol/L Potassium 3.4 L (3.5-5.1) mmol/L Creatinine 0.38 L (0.6-1.4) mg/dl BUN/Creatinine Ratio 23.7 H (10-20) Calcium 7.4 L (8.6-10.3) mg/dl AST 68 H (13-39) U/L Alkaline Phosphatase 136 H (34-104) U/L Total Protein 5.7 L (6.0-8.3) gm/dl Albumin 2.9 L (3.4-5.0) gm/dl PG Care Time/CCT Total # of Minutes Spent Total Time Spent with Patient: Total time spent is greater than 50% in coordination of care (as documented) at patient's floor/unit and/or counseling patient: Coding Level of Care Code 77845 SUB INP/OBS CARE 2/35MIN Diagnoses Alcohol withdrawal F10.939 Tachycardia R00.0 Shortness of breath R06.02 Hypomagnesemia E83.42 Acute hypokalemia E87.6 QT prolongation R94.31 Abdominal pain R10.9 Elevated bilirubin R17 Anemia D64.9 Anemia type: unspecified type Diarrhea R19.7 Hypertension I10 (9) Anemia Anemia type: unspecified type Qualified Code(s): D64.9 - Anemia, unspecified
[2023-01-13] MEDS ORDERED: hydrOXYzine HCl 25 MG TAB PO STA (21:10)
[2023-01-14] MEDS ORDERED: hydrOXYzine HCl 25 MG TAB PO PRN (02:52)
[2023-01-14] MEDS: MELATONIN 3 MG TAB PO PRN (03:44)
[2023-01-14 07:41] LABS: Hematocrit (blood only) 27.2 % (42.0-52.0); Hemoglobin 9.8 g/dl (14.0-18.0); Mean Corpuscular Hemoglobin 34.4 pg (25.0-34.0); Mean Corpuscular Volume 95.4 fL (80.0-100.0); Mean Platelet Volume 10.1 fL (9.4-12.4); Platelet Count 137 K/uL (130-400); RDW Coefficient of Variation 14.7 % (11.5-14.5); RDW Standard Deviation 51.7 fL (36.4-46.3); Red Blood Count 2.85 M/uL (4.70-6.10)
[2023-01-14 08:08] LABS: Albumin Globulin Ratio 1.1 (0.9-2); Albumin Level 2.8 gm/dl (3.4-5.0); Bilirubin,Total 0.3 mg/dl (0.2-1.0); Calcium 7.6 mg/dl (8.6-10.3); Creatinine Clr Calc Pharmacy 171.5 ml/min; Est GFR (African American) 147.1 ml/min; Est GFR (Non-African American) 126.9 ml/min; Globulin 2.5 gm/dl (2.5-4.0); Magnesium 1.6 mg/dl (1.7-2.4); Potassium 3.3 mmol/L (3.5-5.1); Total Protein 5.3 gm/dl (6.0-8.3)
[2023-01-14 08:19] LABS: INR 1.1 (0.9-1.1); Prothrombin Time 12.4 Seconds (9.0-12.0)
[2023-01-14] MEDS: chlordiazePOXIDE HCl 25 MG CAP PO SCH (08:20)
[2023-01-14] MEDS: busPIRone 5 MG TAB PO SCH (08:21)
[2023-01-14] MEDS: MAGNESIUM OXIDE 400 MG TAB PO SCH (08:22)
[2023-01-14] MEDS: MULTIVITAMIN TAB PO SCH (08:22)
[2023-01-14] MEDS: FLUoxetine HCL 20 MG CAP PO SCH (08:23)
[2023-01-14] MEDS: FOLIC ACID 1 MG TAB PO SCH (08:23)
[2023-01-14] MEDS: PANTOprazole 40 MG TAB PO SCH ×2 (08:24→19:53)
[2023-01-14] MEDS: METOPROLOL SUCC 25MG EXT REL TAB PO SCH (08:24)
[2023-01-14] MEDS: THIAMINE HCL 100 MG TAB PO SCH (08:25)
[2023-01-14] MEDS ORDERED: POTASSIUM CHLORIDE CRTAB 20 MEQ TABCR PO STA (13:56)
--- NOTE | 2023-01-14 13:58 | Hospitalist Progress Note ---
Date of Service January 14, 2023 Assessment & Plan (1) Alcohol withdrawal: Plan: -Currently stable -Long hx of alcohol abuse with multiple previous admissions for alcohol withdrawal -Tried to wean himself off alcohol approximately 2 days ago, has had significant withdrawal symptoms since -Normally drinks 3-4 large cans of [employer] daily, last drink was this am when he had two cans of hard seltzer -Alcohol level in the ED is 62, patient appears to be in active withdrawal -Patient has responded well to Librium on past admissions, currently on Librium taper -Continue AWSS active protocol, monitor on tele, seizure precautions -Patient is interested in rehab on discharge, will consult case management -Tolerating solid meals (2) Tachycardia: Plan: -Patient noted to be tachycardic with HR in the 110's -Likely multifactorial including acute alcohol withdrawal, dehydration, low mag/potassium levels, and possible reflex tachycardia from non-compliance with metoprolol -Resolved -Continue medical withdrawal tx, IV fluids, and replete electrolytes as needed (3) Shortness of breath: Plan: -Patient has noted increased SOB/CABELLO recently -Has been stable on RA -No leukocytosis, fever, chest pain, cough, or signs of volume overload EKG unremarkable Chest x-ray unremarkable Respiratory panel negative Most likely secondary to deconditioning PT and OT consulted (4) Hypomagnesemia: Plan: -Likely due to alcohol abuse and recent diarrhea resolved after repletion (5) Acute hypokalemia: Plan: -Likely multifactorial including low mag, malnutrition, vomiting, and alcohol abuse (6) QT prolongation: Plan: -QTc prolonged at 526 on admission ECG -Continue to monitor on tele, continue to replete mag and potassium (7) Abdominal pain: Plan: -Patient has mild lower abdominal pain -Abdominal exam is benign -No urinary symptoms -Has been having a week of non-bloody diarrhea, may be gastroenteritis CT abdomen pelvis showed findings suggestive of mild acute pancreatitis. However clinically patient does not have severe abdominal pain or tenderness (8) Elevated bilirubin: Plan: -Likely due to his alcohol abuse and liver disease; not on systemic anticoagulat ion -See abdominal pain for rest of workup -Monitor daily CMP Bilirubin normalized (9) Anemia: Plan: -Stable -Continue B12 and folate daily (10) Diarrhea: Plan: -See abdominal pain -No recent abx -Follow stool studies, C. diff PCR, CT abdomen did not show any etiology for diarrhea. (11) Hypertension: Plan: -Currently stable -Likely due to alcohol withdrawal and not taking his metoprolol consistently -BP has improved Continue metoprolol -Continue treatment of alcohol withdrawal Plan Admission and Anticipated Discharge Date Admission Date: January 11, 2023 Subjective Patient feels better overall. Still very weak. Review of Systems Review of Systems: All systems reviewed & are unremarkable except as noted in Subjective Physical Exam Physical Exam: General: Awake, conversant. Heart: S1, S2/regular rate and rhythm, no murmur rubs or gallops Lungs: Clear to auscultation bilaterally. Normal effort Abdomen: Soft/nontender/nondistended. No hepatosplenomegaly Extremities: No clubbing/cyanosis. No edema Behavior: Appropriate, cooperative Results & Data Results & Data Vital Signs (Past 12 Hours) Vital Signs Temp Pulse Pulse Resp BP Pulse Ox O2 Del Method 01/14/23 12:04 36.8 C 59 L 17 105/87 98 Room Air 01/14/23 07:30 36.4 C L 76 17 104/83 98 Room Air 01/14/23 03:23 36.4 C L 60 18 108/84 99 Room Air 01/14/23 02:24 72 PG Care Time/CCT Total # of Minutes Spent Total Time Spent with Patient: Total time spent is greater than 50% in coordination of care (as documented) at patient's floor/unit and/or counseling patient: Coding Level of Care Code 34531 SUB INP/OBS CARE 2/35MIN Diagnoses Alcohol withdrawal F10.939 Tachycardia R00.0 Shortness of breath R06.02 Hypomagnesemia E83.42 Acute hypokalemia E87.6 QT prolongation R94.31 Abdominal pain R10.9 Elevated bilirubin R17 Anemia D64.9 Anemia type: unspecified type Diarrhea R19.7 Hypertension I10 (9) Anemia Anemia type: unspecified type Qualified Code(s): D64.9 - Anemia, unspecified
[2023-01-14] MEDS: MAGNESIUM SULFATE / D5W 1 GM/100 ML BAG IV SCH ×2 (14:39→16:41)
[2023-01-14] MEDS: NICOTINE 21 MG/24 HR TDSY TD SCH (19:27)
[2023-01-14] MEDS: ACETAMINOPHEN 325 MG TAB PO PRN ×2 (19:28→19:34)
[2023-01-14] MEDS: busPIRone 15 MG TAB PO SCH (21:04)
[2023-01-15] MEDS ORDERED: diphenhydrAMINE Capsule 25 MG CAP PO ONE (01:57)
[2023-01-15] MEDS: ACETAMINOPHEN 325 MG TAB PO PRN ×2 (02:22→08:05)
[2023-01-15] MEDS ORDERED: KETOROLAC TROMETHAMINE 15 MG/ML VIAL IV ONE (02:38)
[2023-01-15] MEDS ORDERED: SODIUM CHLORIDE 0.9% 1,000 ML IV SCH (02:45)
--- NOTE | 2023-01-15 03:02 | Communication Note ---
Date of Service: January 15, 2023 Received notification patient complaining of worsened abd pain 11/16. Patient describes it as sore, primarily in upper abd but also affecting lower abd, st ates this has happened before but now worse. States breathing deeply hurts, it is interfering with sleep. Denies any nausea vomitting, last BM yesterday normal. On physical exam patient has somewhat guarded abd on palpation noted pain in RUQ and periumbilical area. Given patient's ongoing alcohol withdrawal and recent CT A/P with concern pancreatitis, this may be an exacerbation of his pancreatitis. Ordered labs CBC CMP lipase lactate. Ordered pain control with toradol, NSS 125mls/h.
[2023-01-15 03:31] LABS: Basophils # (auto) 0.02 K/uL (0.00-0.20); Basophils % (auto) 0.3 %; Eosinophils # (auto) 0.12 K/uL (0.00-0.50); Eosinophils % (auto) 1.9 %; Hematocrit (blood only) 29.1 % (42.0-52.0); Immature Granulocytes # (auto) 0.02 K/uL (0.01-0.20); Immature Granulocytes % (auto) 0.3 %; Lymphocytes % (auto) 19.4 %; Mean Corpuscular Hemoglobin 33.8 pg (25.0-34.0); Mean Corpuscular Hgb Conc 34.4 g/dL (32.0-36.0); Mean Corpuscular Volume 98.3 fL (80.0-100.0); Mean Platelet Volume 10.1 fL (9.4-12.4); Monocytes # (auto) 0.61 K/uL (0.11-0.59); Monocytes % (auto) 9.9 %; Neutrophils % (auto) 68.2 %; Platelet Count 164 K/uL (130-400); RDW Coefficient of Variation 15.5 % (11.5-14.5); RDW Standard Deviation 55.6 fL (36.4-46.3); Red Blood Count 2.96 M/uL (4.70-6.10); White Blood Count 6.17 K/ul (4.8-10.8)
[2023-01-15 03:43] LABS: Albumin Globulin Ratio 1.1 (0.9-2); Albumin Level 2.9 gm/dl (3.4-5.0); BUN Creatinine Ratio 19.2 (10-20); Bilirubin,Total 0.3 mg/dl (0.2-1.0); Calcium 7.6 mg/dl (8.6-10.3); Est GFR (African American) 141.1 ml/min; Est GFR (Non-African American) 121.7 ml/min; Globulin 2.6 gm/dl (2.5-4.0); Potassium 3.8 mmol/L (3.5-5.1); Total Protein 5.5 gm/dl (6.0-8.3)
[2023-01-15] MEDS: busPIRone 15 MG TAB PO SCH (08:06)
[2023-01-15] MEDS: NICOTINE 21 MG/24 HR TDSY TD SCH (08:06)
[2023-01-15] MEDS: MULTIVITAMIN TAB PO SCH (08:06)
[2023-01-15] MEDS: PANTOprazole 40 MG TAB PO SCH ×2 (08:07→19:59)
[2023-01-15] MEDS: FOLIC ACID 1 MG TAB PO SCH (08:07)
[2023-01-15] MEDS: FLUoxetine HCL 20 MG CAP PO SCH (08:07)
[2023-01-15] MEDS: THIAMINE HCL 100 MG TAB PO SCH (08:07)
[2023-01-15] MEDS: METOPROLOL SUCC 25MG EXT REL TAB PO SCH (08:07)
[2023-01-15] MEDS: MAGNESIUM OXIDE 400 MG TAB PO SCH (08:07)
--- NOTE | 2023-01-15 14:14 | Hospitalist Progress Note ---
Date of Service January 15, 2023 Assessment & Plan (1) Alcohol withdrawal: Plan: -Currently stable -Long hx of alcohol abuse with multiple previous admissions for alcohol withdrawal -Tried to wean himself off alcohol approximately 2 days ago, has had significant withdrawal symptoms since -Normally drinks 3-4 large cans of Four Lokos daily, last drink was this am when he had two cans of hard seltzer -Alcohol level in the ED is 62, patient appears to be in active withdrawal -Patient has responded well to Librium on past admissions, currently on Librium taper -Continue AWSS active protocol, monitor on tele, seizure precautions -Patient is interested in rehab on discharge, will consult case management (2) Acute alcoholic pancreatitis: Plan: overnight patient had 8/10 pain in the epigastrium and right upper quadrant. Patient has a history of alcoholic pancreatitis. CT abdomen on admission showed findings suggestive of mild alcoholic pancreatitis. Even though lipase level was normal, this is most likely acute alcoholic pancreatitis Started conservative management with bowel rest, IV fluids and IV pain medications. N.p.o. (3) Tachycardia: Plan: -Patient noted to be tachycardic with HR in the 110's -Likely multifactorial including acute alcohol withdrawal, dehydration, low mag/potassium levels, and possible reflex tachycardia from non-compliance with metoprolol -Resolved -Continue medical withdrawal tx, IV fluids, and replete electrolytes as needed (4) Shortness of breath: Plan: -Patient has noted increased SOB/CABELLO recently -Has been stable on RA -No leukocytosis, fever, chest pain, cough, or signs of volume overload EKG unremarkable Chest x-ray unremarkable Respiratory panel negative Most likely secondary to deconditioning PT and OT consulted (5) Hypomagnesemia: Plan: -Likely due to alcohol abuse and recent diarrhea resolved after repletion (6) Acute hypokalemia: Plan: -Likely multifactorial including low mag, malnutrition, vomiting, and alcohol abuse (7) QT prolongation: Plan: -QTc prolonged at 526 on admission ECG -Continue to monitor on tele, continue to replete mag and potassium (8) Elevated bilirubin: Plan: -Likely due to his alcohol abuse and liver disease; not on systemic anticoagulation -See abdominal pain for rest of workup -Monitor daily CMP Bilirubin normalized (9) Anemia: Plan: -Stable -Continue B12 and folate daily (10) Diarrhea: Plan: resolved -No recent abx -Follow stool studies, C. diff PCR, CT abdomen did not show any etiology for diarrhea. (11) Hypertension: Plan: -Currently stable -Likely due to alcohol withdrawal and not taking his metoprolol consistently -BP has improved Continue metoprolol -Continue treatment of alcohol withdrawal Plan Admission and Anticipated Discharge Date Admission Date: January 11, 2023 Subjective Overnight, patient had 8/10 pain. Currently pain is improved to a 6/10. He is now made NPO. He most likely has Alcoholic pancreatitis. Review of Systems Review of Systems: All systems reviewed & are unremarkable except as noted in Subjective Physical Exam Physical Exam: General: Awake, conversant. Heart: S1, S2/regular rate and rhythm, no murmur rubs or gallops Lungs: Clear to auscultation bilaterally. Normal effort Abdomen: nondistended. Abdominal tenderness mostly in the upper abdomen. No rebound, rigidity or guarding.. No hepatosplenomegaly Extremities: No clubbing/cyanosis. No edema Behavior: Appropriate, cooperative Results & Data Results & Data Vital Signs (Past 12 Hours) Vital Signs Temp Pulse Pulse Resp BP Pulse Ox O2 Del Method 01/15/23 11:40 36.5 C 69 18 105/73 98 Room Air 01/15/23 10:01 Room Air 01/15/23 08:01 36.5 C 68 18 115/82 99 Room Air 01/15/23 08:00 73 01/15/23 03:17 36.5 C 67 17 116/80 98 Room Air Laboratory Results Abnormal lab results 01/15/23 01/15/23 Range/Units 03:02 03:02 RBC 2.96 L (4.70-6.10) M/uL Hgb 10.0 L (14.0-18.0) g/dl Hct 29.1 L (42.0-52.0) % RDW Std Deviation 55.6 H (36.4-46.3) fL RDW Coeff of Arturo 15.5 H (11.5-14.5) % [place] # (Auto) 0.61 H (0.11-0.59) K/uL Sodium 133 L (136-145) mmol/L Chloride 109 H (98-107) mmol/L Carbon Dioxide 20 L (21-32) mmol/L Creatinine 0.52 L (0.6-1.4) mg/dl Glucose 120 H (70-99(Fasting)) mg/dl Calcium 7.6 L (8.6-10.3) mg/dl Alkaline Phosphatase 112 H (34-104) U/L Total Protein 5.5 L (6.0-8.3) gm/dl Albumin 2.9 L (3.4-5.0) gm/dl PG Care Time/CCT Total # of Minutes Spent Total Time Spent with Patient: Total time spent is greater than 50% in coordination of care (as documented) at patient's floor/unit and/or counseling patient: Coding Level of Care Code 16924 SUB INP/OBS CARE 2/35MIN Diagnoses Alcohol withdrawal F10.939 Acute alcoholic pancreatitis K85.20 Tachycardia R00.0 Shortness of breath R06.02 Hypomagnesemia E83.42 Acute hypokalemia E87.6 QT prolongation R94.31 Elevated bilirubin R17 Anemia D64.9 Anemia type: unspecified type Diarrhea R19.7 Hypertension I10 (9) Anemia Anemia type: unspecified type Qualified Code(s): D64.9 - Anemia, unspecified
[2023-01-15] MEDS: MoRPHine SULFATE 2 MG/ML CARP IV PRN ×3 (15:39→23:57)
[2023-01-15] MEDS: SODIUM CHLORIDE 0.9% 1,000 ML IV SCH ×2 (15:39→23:57)
[2023-01-15] MEDS: busPIRone 5 MG TAB PO SCH (19:59)
[2023-01-15] MEDS: MELATONIN 3 MG TAB PO PRN (23:57)
[2023-01-15] MEDS: traZODone HCL 50 MG TAB PO PRN (23:57)
[2023-01-16] MEDS: NICOTINE 21 MG/24 HR TDSY TD SCH (08:38)
[2023-01-16] MEDS: FLUoxetine HCL 20 MG CAP PO SCH (08:39)
[2023-01-16] MEDS: METOPROLOL SUCC 25MG EXT REL TAB PO SCH (08:39)
[2023-01-16] MEDS: FOLIC ACID 1 MG TAB PO SCH (08:39)
[2023-01-16] MEDS: MULTIVITAMIN TAB PO SCH (08:39)
[2023-01-16] MEDS: busPIRone 5 MG TAB PO SCH ×2 (08:39→20:18)
[2023-01-16] MEDS: THIAMINE HCL 100 MG TAB PO SCH (08:39)
[2023-01-16] MEDS: PANTOprazole 40 MG TAB PO SCH ×2 (08:39→20:18)
[2023-01-16] MEDS: MAGNESIUM OXIDE 400 MG TAB PO SCH (08:39)
[2023-01-16] MEDS: SODIUM CHLORIDE 0.9% 1,000 ML IV SCH ×3 (08:42→18:01)
[2023-01-16] MEDS: ACETAMINOPHEN 325 MG TAB PO PRN ×2 (08:42→20:20)
--- NOTE | 2023-01-16 13:20 | Hospitalist Progress Note ---
Date of Service January 16, 2023 Assessment & Plan (1) Alcohol withdrawal: Plan: -Currently stable -Long hx of alcohol abuse with multiple previous admissions for alcohol withdrawal -Tried to wean himself off alcohol approximately 2 days ago, has had significant withdrawal symptoms since -Normally drinks 3-4 large cans of Four Lokos daily -Alcohol level in the ED is 62 -Patient has responded well to Librium on past admissions resolved passed Alcohol withdrawal phase Off of Librium -Patient is interested in rehab on discharge, will consult case management (2) Acute alcoholic pancreatitis: Plan: patient started having epigastric and right upper quadrant pain on 01/14 Started on bowel rest, IV fluids and IV pain medications Patient is requesting to eat Started on a clear liquid diet and stopped IV pain medications Reduce the rate of IV fluids Patient has a history of alcoholic pancreatitis. CT abdomen on admission showed findings suggestive of mild alcoholic pancreat itis. Even though lipase level was normal, this is most likely acute alcoholic pancreatitis. (3) Tachycardia: Plan: -Patient noted to be tachycardic with HR in the 110's -Likely multifactorial including acute alcohol withdrawal, dehydration, low mag/potassium levels, and possible reflex tachycardia from non-compliance with metoprolol -Resolved -Continue medical withdrawal tx, IV fluids, and replete electrolytes as needed (4) Shortness of breath: Plan: -Patient has noted increased SOB/CABELLO recently -Has been stable on RA -No leukocytosis, fever, chest pain, cough, or signs of volume overload EKG unremarkable Chest x-ray unremarkable Respiratory panel negative Most likely secondary to deconditioning PT and OT consulted (5) Hypomagnesemia: Plan: -Likely due to alcohol abuse and recent diarrhea resolved after repletion (6) Acute hypokalemia: Plan: -Likely multifactorial including low mag, malnutrition, vomiting, and alcohol abuse (7) QT prolongation: Plan: -QTc prolonged at 526 on admission ECG -Continue to monitor on tele, continue to replete mag and potassium (8) Elevated bilirubin: Plan: -Likely due to his alcohol abuse and liver disease; not on systemic anticoagulation -See abdominal pain for rest of workup -Monitor daily CMP Bilirubin normalized (9) Anemia: Plan: -Stable -Continue B12 and folate daily (10) Diarrhea: Plan: resolved -No recent abx -Follow stool studies, C. diff PCR, CT abdomen did not show any etiology for diarrhea. (11) Hypertension: Plan: -Currently stable -Likely due to alcohol withdrawal and not taking his metoprolol consistently -BP has improved Continue metoprolol -Continue treatment of alcohol withdrawal Plan Admission and Anticipated Discharge Date Admission Date: January 11, 2023 Subjective patient says that his pain is better today. He is happy that he was able to have a clear liquid diet. Review of Systems Review of Systems: All systems reviewed & are unremarkable except as noted in Subjective Physical Exam Physical Exam: General: Awake, conversant. Heart: S1, S2/regular rate and rhythm, no murmur rubs or gallops Lungs: Clear to auscultation bilaterally. Normal effort Abdomen: nondistended. Mild Abdominal tenderness mostly in the upper abdomen. No rebound, rigidity or guarding.. No hepatosplenomegaly Extremities: No clubbing/cyanosis. No edema Behavior: Appropriate, cooperative Results & Data Results & Data Vital Signs (Past 12 Hours) Vital Signs Temp Pulse Pulse Resp BP Pulse Ox O2 Del Method 01/16/23 11:33 66 17 104/80 100 Room Air 01/16/23 08:45 36.7 C 71 17 94/69 L 98 Room Air 01/16/23 07:03 63 01/16/23 03:51 36.4 C L 68 18 104/72 97 Room Air PG Care Time/CCT Total # of Minutes Spent Total Time Spent with Patient: Total time spent is greater than 50% in coordination of care (as documented) at patient's floor/unit and/or counseling patient: Coding Level of Care Code 41774 SUB INP/OBS CARE 2/35MIN Diagnoses Alcohol withdrawal F10.939 Acute alcoholic pancreatitis K85.20 Tachycardia R00.0 Shortness of breath R06.02 Hypomagnesemia E83.42 Acute hypokalemia E87.6 QT prolongation R94.31 Elevated bilirubin R17 Anemia D64.9 Anemia type: unspecified type Diarrhea R19.7 Hypertension I10 (9) Anemia Anemia type: unspecified type Qualified Code(s): D64.9 - Anemia, unspecified
[2023-01-16] MEDS: hydrOXYzine HCl 25 MG TAB PO PRN (20:19)
[2023-01-16] MEDS: traZODone HCL 50 MG TAB PO PRN (23:42)
[2023-01-17] MEDS: PANTOprazole 40 MG TAB PO SCH ×2 (08:51→20:54)
[2023-01-17] MEDS: MAGNESIUM OXIDE 400 MG TAB PO SCH (08:51)
[2023-01-17] MEDS: busPIRone 5 MG TAB PO SCH ×2 (08:51→20:54)
[2023-01-17] MEDS: THIAMINE HCL 100 MG TAB PO SCH (08:52)
[2023-01-17] MEDS: SODIUM CHLORIDE 0.9% 1,000 ML IV SCH (08:53)
[2023-01-17] MEDS: FLUoxetine HCL 20 MG CAP PO SCH (08:55)
[2023-01-17] MEDS: MULTIVITAMIN TAB PO SCH (08:56)
[2023-01-17] MEDS: METOPROLOL SUCC 25MG EXT REL TAB PO SCH (08:56)
[2023-01-17] MEDS: FOLIC ACID 1 MG TAB PO SCH (08:57)
[2023-01-17] MEDS: NICOTINE 21 MG/24 HR TDSY TD SCH (08:57)
--- NOTE | 2023-01-17 12:23 | Hospitalist Progress Note ---
Date of Service January 17, 2023 Assessment & Plan (1) Alcohol withdrawal: Plan: -Currently stable -Long hx of alcohol abuse with multiple previous admissions for alcohol withdrawal -Tried to wean himself off alcohol approximately 2 days ago, has had significant withdrawal symptoms since -Normally drinks 3-4 large cans of Four Lokos daily -Alcohol level in the ED is 62 -Patient has responded well to Librium on past admissions resolved passed Alcohol withdrawal phase Off of Librium -Patient is interested in rehab on discharge, will consult case management (2) Acute alcoholic pancreatitis: Plan: patient started having epigastric and right upper quadrant pain on 01/14 Started on bowel rest, IV fluids and IV pain medications advance diet to full liquid diet. Discontinue IV fluids Patient has a history of alcoholic pancreatitis. CT abdomen on admission showed findings suggestive of mild alcoholic pancreatitis. Even though lipase level was normal, this is most likely acute alcoholic pancreatitis. (3) Tachycardia: Plan: -Patient noted to be tachycardic with HR in the 110's -Likely multifactorial including acute alcohol withdrawal, dehydration, low mag/potassium levels, and possible reflex tachycardia from non-compliance with metoprolol -Resolved -Continue medical withdrawal tx, IV fluids, and replete electrolytes as needed (4) Shortness of breath: Plan: -Patient has noted increased SOB/CABELLO recently -Has been stable on RA -No leukocytosis, fever, chest pain, cough, or signs of volume overload EKG unremarkable Chest x-ray unremarkable Respiratory panel negative Most likely secondary to deconditioning PT and OT consulted (5) Hypomagnesemia: Plan: -Likely due to alcohol abuse and recent diarrhea resolved after repletion (6) Acute hypokalemia: Plan: -Likely multifactorial including low mag, malnutrition, vomiting, and alcohol abuse (7) QT prolongation: Plan: -QTc prolonged at 526 on admission ECG -Continue to monitor on tele, continue to replete mag and potassium (8) Elevated bilirubin: Plan: -Likely due to his alcohol abuse and liver disease; not on systemic anticoagulation -See abdominal pain for rest of workup -Monitor daily CMP Bilirubin normalized (9) Anemia: Plan: -Stable -Continue B12 and folate daily (10) Diarrhea: Plan: resolved -No recent abx -Follow stool studies, C. diff PCR, CT abdomen did not show any etiology for diarrhea. (11) Hypertension: Plan: -Currently stable -Likely due to alcohol withdrawal and not taking his metoprolol consistently -BP has improved Continue metoprolol -Continue treatment of alcohol withdrawal Plan Admission and Anticipated Discharge Date Admission Date: January 11, 2023 Subjective patient says that his pain is doing better. He is now hungry. Wishes to advance to a full liquid diet Review of Systems Review of Systems: All systems reviewed & are unremarkable except as noted in Subjective Physical Exam Physical Exam: General: Awake, conversant. Heart: S1, S2/regular rate and rhythm, no murmur rubs or gallops Lungs: Clear to auscultation bilaterally. Normal effort Abdomen: nondistended. Mild Abdominal tenderness mostly in the upper abdomen. No rebound, rigidity or guarding.. No hepatosplenomegaly Extremities: No clubbing/cyanosis. No edema Behavior: Appropriate, cooperative Results & Data Results & Data Vital Signs (Past 12 Hours) Vital Signs Temp Pulse Pulse Resp BP Pulse Ox O2 Del Method 01/17/23 11:48 36.8 C 68 17 103/78 98 Room Air 01/17/23 07:45 36.8 C 70 17 106/79 97 Room Air 01/17/23 05:58 67 01/17/23 04:02 36.7 C 67 20 107/70 97 Room Air PG Care Time/CCT Total # of Minutes Spent Total Time Spent with Patient: Total time spent is greater than 50% in coordination of care (as documented) at patient's floor/unit and/or counseling patient: Coding Level of Care Code 22031 SUB INP/OBS CARE 2/35MIN Diagnoses Alcohol withdrawal F10.939 Acute alcoholic pancreatitis K85.20 Tachycardia R00.0 Shortness of breath R06.02 Hypomagnesemia E83.42 Acute hypokalemia E87.6 QT prolongation R94.31 Elevated bilirubin R17 Anemia D64.9 Anemia type: unspecified type Diarrhea R19.7 Hypertension I10 (9) Anemia Anemia type: unspecified type Qualified Code(s): D64.9 - Anemia, unspecified
[2023-01-17] MEDS: ACETAMINOPHEN 325 MG TAB PO PRN (16:53)
[2023-01-17] MEDS: hydrOXYzine HCl 25 MG TAB PO PRN (21:02)
[2023-01-18] MEDS: traZODone HCL 50 MG TAB PO PRN (00:28)
[2023-01-18] MEDS: MULTIVITAMIN TAB PO SCH (08:16)
[2023-01-18] MEDS: busPIRone 5 MG TAB PO SCH (08:16)
[2023-01-18] MEDS: PANTOprazole 40 MG TAB PO SCH (08:16)
[2023-01-18] MEDS: NICOTINE 21 MG/24 HR TDSY TD SCH (08:17)
[2023-01-18] MEDS: THIAMINE HCL 100 MG TAB PO SCH (08:17)
[2023-01-18] MEDS: FOLIC ACID 1 MG TAB PO SCH (08:17)
[2023-01-18] MEDS: FLUoxetine HCL 20 MG CAP PO SCH (08:17)
[2023-01-18] MEDS: MAGNESIUM OXIDE 400 MG TAB PO SCH (08:17)
[2023-01-18] MEDS: METOPROLOL SUCC 25MG EXT REL TAB PO SCH (08:17)
[2023-01-18] MEDS: ACETAMINOPHEN 325 MG TAB PO PRN (14:40)
--- NOTE | 2023-01-18 14:56 | Discharge Summary ---
Date of Service January 18, 2023 Admission HPI Per Admitting Provider Uday is a 52 year old male with a PMHx of anxiety/depression, alcohol abuse, lumbar radiculopathy, and HTN who presented to the [facility] ED on 01/11 due to alcohol withdrawal. In the ED he was noted to be tachycardic with HR of 116 and hypertensive at 177/110 but otherwise stable. Labs were significant for an INR of 1.2, potassium of 3.1, AG of 16 with Bicarb of 19, calcium of 8.1, mag of 1.0, total bili of 1.2, alk phos of 177, and alcohol level of 62. Prior to admission the patient was given a banana bag, ordered 2 bags of 1gm IV mag- sulfate, and 1 mg IV ativan. We were asked to admit the patient for medical alcohol withdrawal treatment. At the time of the exam the patient was lying in bed in no acute distress but appears anxious and tremulous. He states that he started to drink again approximately 2 months ago. There was not a specific trigger that made him start to drink again but that he lives alone and gets lonely/bored. He has been drinking 3-4 large four miguel cans daily. He wanted to start weaning himself a few days ago but has been experiencing significant alcohol withdrawal symptoms since. He has been having chills, night sweats, tremors, significant anxiety, decreased appetite, nausea, and non-bloody emesis. He confirms that he has had a withdrawal seizure in the past. When asked, he states that he has been experiencing mild lower abdominal pain which has not radiated. He has had 3-4 episodes daily of non-bloody diarrhea over the past week. He denies recent antibiotic use. He has not been taking his prescribed medications consistently, he had none today. He drank 2 cans of hard seltzer this am to try and reduce the severity of his withdrawal symptoms, this made him nauseous. When asked, he denies auditory, visual, and tactile hallucinations. He denies chest pain but has been noticing increased CABELLO over the past few days. He denies recent fever, cough, dysuria, hematuria, melena, LE swelling, and recent trauma. We discussed code status, he wishes to be a full code and for his sister to make medical decision for him if he cannot make them himself. Please refer to Dr. Ewing's attestation for any changes to the treatment plan Principal Diagnosis General:In no acute distress, stated age, malnourished and chronically ill appearing but non-toxic HEENT:Normocephalic, atraumatic, no scleral icterus, pupils around round, symmetrical, and reactive to light,Drymucus membranes, trachea midline, no thyromegaly Chest/Pulm:No respiratory distress, symmetrical chest expansion, clear breath sounds throughout Cardiac:tachycardic rate, regular rhythm, no murmurs noted Abdomen:Negative for ascites and bruising, normoactive bowel sounds, soft, non-tender to palpation throughout Musculoskeletal:Symmetrical and without signs of acute trauma, upper and lower extremities with full ROM, no atrophy, spasticity, or flaccidity Extremities:Radial, dorsalis pedis, and posterior tibial pulses are intact and symmetrical, no edema noted in the BL LE's Skin:Warm, dry, no rashes , lesions, or scars noted Neuro:Alert and oriented to person, place, month, year, and president, no focal defects, moderate tremor is noted at rest and with intention Psych:No acute distress, anxious, polite and cooperative during the exam Discharge Exam General: Awake, conversant. Heart: S1, S2/regular rate and rhythm, no murmur rubs or gallops Lungs: Clear to auscultation bilaterally. Normal effort Abdomen: nondistended. Mild Abdominal tenderness mostly in the upper abdomen. No rebound, rigidity or guarding.. No hepatosplenomegaly Extremities: No clubbing/cyanosis. No edema Behavior: Appropriate, cooperative Discharge Data Allergies Allergy/AdvReac Type Severity Reaction Status Date / Time No Known Allergies Allergy Verified 01/11/23 16:54 Consultations 01/11/23 13:16 ED Decision to Admit Stat Ordered Studies 01/11/23 13:38 CT abd pelvis wo con Urgent 01/11/23 14:23 CT abd pelvis IV con only Stat Hospital Course (1) Alcohol withdrawal: -Currently stable -Long hx of alcohol abuse with multiple previous admissions for alcohol withdrawal -Tried to wean himself off alcohol approximately 2 days ago, has had significant withdrawal symptoms since -Normally drinks 3-4 large cans of Four Lokos daily -Alcohol level in the ED is 62 -Patient has responded well to Librium on past admissions resolved passed Alcohol withdrawal phase Off of Librium (2) Acute alcoholic pancreatitis: patient started having epigastric and right upper quadrant pain on 01/14 Started on bowel rest, IV fluids and IV pain medications tolerated advancing diet Discontinue IV fluids Patient has a history of alcoholic pancreatitis. CT abdomen on admission showed findings suggestive of mild alcoholic pancreatitis. Even though lipase level was normal, this is most likely acute alcoholic pancreatitis. Medically stable for discharge today (3) Tachycardia: -Patient noted to be tachycardic with HR in the 110's -Likely multifactorial including acute alcohol withdrawal, dehydration, low mag/potassium levels, and possible reflex tachycardia from non-compliance with metoprolol -Resolved -Continue medical withdrawal tx, IV fluids, and replete electrolytes as needed (4) Shortness of breath: -Patient has noted increased SOB/CABELLO recently -Has been stable on RA -No leukocytosis, fever, chest pain, cough, or signs of volume overload EKG unremarkable Chest x-ray unremarkable Respiratory panel negative Most likely secondary to deconditioning PT and OT consulted Being discharged to rehab (5) Hypomagnesemia: -Likely due to alcohol abuse and recent diarrhea resolved after repletion (6) Acute hypokalemia: -Likely multifactorial including low mag, malnutrition, vomiting, and alcohol abuse (7) QT prolongation: -QTc prolonged at 526 on admission ECG -Continue to monitor on tele, continue to replete mag and potassium (8) Elevated bilirubin: -Likely due to his alcohol abuse and liver disease; not on systemic anticoagulation -See abdominal pain for rest of workup -Monitor daily CMP Bilirubin normalized (9) Anemia: -Stable -Continue B12 and folate daily (10) Diarrhea: resolved -No recent abx -Follow stool studies, C. diff PCR, CT abdomen did not show any etiology for diarrhea. (11) Hypertension: -Currently stable -Likely due to alcohol withdrawal and not taking his metoprolol consistently -BP has improved Continue metoprolol -Continue treatment of alcohol withdrawal Plan discharge to rehab today Total Time Total Time Spent Total Time Spent (In Minutes): 35 Discharge Plan Discharge Items Patient Disposition: Transfer Inpatient Rehab Fac Reason For Visit: ALCOHOL WITHDRAWAL Discharge Diagnosis: 1. Alcohol withodrawal 2. Acute alcoholic pancreatitis 3. Electrolyte imbalances including hypomagnesemia, hypokalemia Activity: Resume your previous activity Non-emergency contact: Primary Care Provider Call non-emergency contact if: you have any medication questions and your symptoms worsen Follow-up/Referrals: Kvng Mcghee III, COMPLEX CASE MANAGER [Primary Care Provider] - Diet: Regular Addtl Attending Provider Instructions: Advised on quitting alcohol intake Advised to follow-up with PCP in 1 week Pending Studies at Discharge: No Stand-Alone Forms: My [facility] [employer], Smoking Cessation Skilled Items Patient informed of condition?: Yes DNR: No Discharge Level of Care: Skilled Communicable Disease: No Discharge Prognosis: Stable Lines: None Urinary Catheter: No Medications and DC Order Prescriptions: New omeprazole 40 mg capsule,delayed release(DR/EC) 40 mg PO DAILY 30 Days Qty: 30 0RF Continued magnesium oxide 400 mg magnesium capsule 400 mg PO DAILY Qty: 30 1RF buspirone 10 mg tablet 10 mg PO BID Qty: 180 1RF thiamine HCl (vitamin B1) 100 mg tablet 100 mg PO QAM Qty: 30 5RF multivitamin Tablet 1 tab PO DAILY folic acid 1 mg tablet 1 mg PO DAILY Rx Instructions: TAKE 1 TAB ORALLY DAILY IN THE MORNING fluoxetine 40 mg capsule 40 mg PO DAILY trazodone 50 mg tablet 50 mg PO HS ibuprofen [Advil] 200 mg Tablet 400 mg PO Q6H PRN (Reason: Pain) pantoprazole 40 mg tablet,delayed release (DR/EC) 40 mg PO QAM Rx Instructions: TAKE 1 TABLET BY MOUTH EVERY DAY metoprolol succinate 25 mg tablet extended release 24 hr 25 mg PO QAM Discharge Orders: Discharge Order (Routine); Ordered 01/18/23 Ordered By: Siomara Puente Admission Data Admit Date/Time: 01/11/23 13:23 Attending Provider: Siomara Puente Admit Provider: Samy Ewing Primary Care Provider: Kvng Mcghee III Other Providers: Samy Ewing ; [facility] ; [facility] Coding Level of Care Code 42590 INP/OBS DISCH >30 MIN Diagnoses Alcohol withdrawal F10.939 Acute alcoholic pancreatitis K85.20 Tachycardia R00.0 Shortness of breath R06.02 Hypomagnesemia E83.42 Acute hypokalemia E87.6 QT prolongation R94.31 Elevated bilirubin R17 Anemia D64.9 Anemia type: unspecified type Diarrhea R19.7 Hypertension I10
[2023-01-18 16:04] VITALS: BP 139/86; PULSE 78; RESP 19; TEMP 97.7; O2SAT 97
== END 2023-01-18 17:52 | DRG 896 ==
LOC: ED 11:22 → SUATTDRO 13:23 → EDINP 13:23 → 2E 20:53

== ENCOUNTER 2023-10-03 21:35 | Inpatient (IN) ==
[2023-10-03] MEDS: SODIUM CHLORIDE 0.9% 1,000 ML IV SCH (22:21)
--- NOTE | 2023-10-03 22:43 | Emergency Department Note ---
Impression & Plan Weakness, Anemia, Hypokalemia, Alcohol abuse, Acute kidney injury, Hyponatremia, Hypomagnesemia ED Provider Note CHIEF COMPLAINT: Weakness, decreased appetite HISTORY OF PRESENTING ILLNESS: This 52-year-old male patient presents to the emergency department with his sister for evaluation of weakness and decreased appetite. The patient states that he has a history of anemia that has been chronic for the past couple of months. The patient states that he is having SOB with even mild exertion. He denies chest pain. He feels more weak than usual and is having difficulty walking because of the weakness. He also has a history of chronic back pain that is causing some difficulty with walking. The patient states that he is an alcoholic and drinks 3 tall boys a day. He is not on any blood thinners. Denies hematochezia, melena, hematuria, hemoptysis, or hematemesis. The patient states that he was told his anemia was secondary to his alcoholism. He states that he has not had an EGD or Colonoscopy done. Denies any fevers, cough, or URI symptoms. REVIEW OF SYSTEMS: See HPI for pertinent positives and pertinent negatives. ALLERGIES: NKDA MEDICATIONS: See below PAST MEDICAL HISTORY: See below PHYSICAL EXAM: VITALS: Vitals are noted on the nurse's note and reviewed by myself. GENERAL: The patient appears chronically ill with poor nutritional status. However, non toxic, no acute distress, and non-diaphoretic. SKIN: Capillary refill <2 sec. EYES: PERRLA. EOMI. Conjunctivae without injection, sclerae without icterus. NOSE: Patent without discharge. MOUTH: Mucous membranes moist. Uvula midline. Airway patent. NECK: Supple without nuchal rigidity. HEART: Regular rate and rhythm without murmurs gallops or rubs. LUNGS: Clear to auscultation bilaterally without wheezes, rales or rhonchi. No retractions or accessory muscle use. ABDOMEN: Positive bowel sounds x 4. Normal tympanic percussion. Soft, nontender. No masses or organomegaly. Love sign negative. No guarding or rebound tenderness. No focal RLQ or LLQ tenderness. RECTAL EXAM: Permission to perform the exam. 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 No external lesions noted. No external hemorrhoids. Normal sphincter tone. Internal hemorrhoids are not enlarged. No masses, tears, fistulas, fissures, abscess, or other lesion noted. Stool is brown and Hemoccult negative. NEURO: Patient was alert and oriented. No focal neurological deficits. DIFFERENTIAL DIAGNOSIS: Differential diagnosis includes infection, dehydration, metabolic abnormality, hypo/hyperglycemia, electrolyte disturbance, anemia, hypoxia, cardiac sources, intracerebral event, toxicologic, neurologic, alcohol withdrawal, hepatic encephalopathy, as well as other pathologies. ED COURSE AND MEDICAL DECISION MAKING: HISTORY FROM INDEPENDENT HISTORIAN: Additional history obtained from the patient's sister. MONITOR: Continuous gathering worker: Order was placed for continuous gathering worker. Patient was placed on the gathering worker and continuous pulse ox. Patient was noted to be in normal sinus rhythm at an initial rate of 78 bpm per my interpretation. MEDICATIONS GIVEN: 1 L normal saline solution bolus. Banana bag. IV Ativan as needed per AWSS protocol. Thiamine 100 mg IM. K rider x 1. Magnesium sulfate 1 g IV. INTERPRETATION OF LABS: I interpreted the labs with full lab results as below in the lab section of this note. White blood cell count low at 4.50. Hemoglobin low at 7.5. Platelet count normal at 205. INR elevated at 1.4, PT 14.5, APTT at 33. Sodium 125, potassium 3.2, creatinine 2.19, calcium 6.9, magnesium 1.5, alk phos 196, and albumin 1.9. Remainder of the CMP without acute abnormalities. High-sensitivity troponin was normal. Lipase is normal. TSH normal. Medical alcohol 107.1. INTERPRETATION OF IMAGING: Chest x-ray per my interpretation with some atelectasis, but no other acute cardiopulmonary etiology. Radiology report still pending. EXTERNAL RECORDS REVIEWED: The patient's most recent admission and PCP visit were reviewed. CONSULTATIONS: On-call hospitalist MDM SUMMARY: I examined the patient. The patient has a history of alcohol abuse with poor oral and nutritional intake. The patient also has a history of chronic anemia likely secondary to his poor nutritional status and multiple vitamin deficiencies. The patient denies any symptoms of bleeding. Hemoccult was negative on exam. The patient has been feeling progressively more weak recently and feels that he needs to be admitted for treatment. An IV lock was placed and labs were drawn. The patient was found to have multiple electrolyte abnormalities with potassium, magnesium, and thiamine supplements given. The patient has an acute kidney injury likely secondary to dehydration. He was given 1 L normal saline solution bolus as well as a banana bag. AWSS call was initiated with as needed Ativan. The patient's hemoglobin is low at 7.5, but he is Hemoccult negative with no signs of bleeding. Since his anemia is likely secondary to his alcohol abuse, poor nutritional status, and vitamin deficiencies, blood transfusion was not given in the ER. I had a meaningful discussion about this patient with Dr. Arora who agrees with my assessment and the treatment plan. The patient requires admission for further evaluation and treatment. I spoke with the on-call hospitalist who agreed to admit the patient for further management. Please refer to their dictation for further details. The patient's care was transferred in stable condition. DIAGNOSIS: Weakness Anemia Alcohol abuse Acute kidney injury Hyponatremia Hypokalemia Hypomagnesemia Past Med/Surg History Problem List (Updated 10/04/23 @ 07:27 by Deborah Sims PA-C) Hypomagnesemia (Acute) Hyponatremia (Acute) Protein calorie malnutrition Acute kidney injury (Acute) Hypokalemia (Acute) Acute alcoholic pancreatitis Alcohol withdrawal (Acute) Neurogenic claudication due to lumbar spinal stenosis Abdominal pain Elevated lipase Tethering of spinal cord Weakness (Acute) Alcohol abuse (Acute) Abnormal EKG (Acute) Folate deficiency Vitamin B12 deficiency Iron deficiency Ambulatory dysfunction (Acute) Depression Anemia (Acute) Hypertension Spinal stenosis at L4-L5 level Lumbar disc herniation Low back pain Impaired fasting glucose Anxiety (Acute) Tobacco use disorder (Acute 05/23/12) Thrombocytopenia (Acute) Lumbar radiculopathy Medical History Acute blood loss anemia Alcohol intoxication Alcohol withdrawal 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 Chronic alcohol use GI bleed Hypertension Hypertensive urgency Hypokalemia Hyponatremia Left foot drop Metabolic acidosis Nausea Pancreatitis Sensory polyneuropathy Smokes 1 pack of cigarettes per day Surgical History No pertinent past surgical history Family History Other Adopted Social History Smoking Status: Current every day smoker Tobacco Type: Cigarettes packs per day: 1; Cigarettes Per Day: 1 PPD; Second Hand Exposure: No; Do You Dip or Chew Tobacco: No; Hx Alcohol Use: Yes Alcohol type: beer Alcohol Intake Frequency Comment: 1/2 to one 5th of vodka daily, some beer Hx Substance Use: No Preferred Language: Sami Communication Ability: Effective Visual Impairment: No Limitations Hearing Ability: Normal Process Development Manager Required: No Beliefs That Will Affect Care: None marital status: Single Current Living Situation: Alone current occupational status: previously employed current occupation: Recently lost job working in an [employer] service How many Children do You have: 0 Feels Safe at Home: Yes Childhood Exposure to Second-Hand Smoke: Yes Diet: regular Dental Care, Regularly: No Physical Activity Frequency: Does not Exercise Seatbelt Use: always Sunscreen Use: No Assistive Devices: Glasses Allergies Allergies Allergy/AdvReac Type Severity Reaction Status Date / Time No Known Allergies Allergy Verified 10/03/23 22:48 Home Meds Home Medications Medication Instructions Recorded Confirmed multivitamin 1 tab PO DAILY 08/13/21 10/03/23 ibuprofen 200 mg tablet (Advil) 400 mg PO Q6H PRN Pain 01/11/23 10/03/23 metoprolol succinate 25 mg 25 mg PO QAM 01/11/23 10/03/23 tablet,extended release 24 hr Previous Rx's Medication Instructions Recorded folic acid 1 mg tablet 1 mg PO DAILY #90 tabs 02/12/23 pantoprazole 40 mg tablet,delayed 40 mg PO QAM #90 tabs 02/19/23 release fluoxetine 40 mg capsule 40 mg PO DAILY #90 caps 02/20/23 thiamine HCl (vitamin B1) 100 mg 100 mg PO QAM #90 tabs 03/28/23 tablet magnesium oxide 400 mg PO DAILY #90 caps 04/27/23 trazodone 50 mg tablet 50 mg PO HS #90 tabs 06/12/23 buspirone 10 mg tablet 10 mg PO TID 90 days #270 tabs 08/02/23 Results & Data (ED) Vital Signs Vital Signs - 24 hr 10/03/23 21:41 10/03/23 21:51 10/03/23 21:53 Temperature 36.8 C Temperature Source Temporal Artery Scan Pulse Rate 79 75 Pulse Rate [Apical] Pulse Rate from SpO2 Sensor Pulse Rhythm [Apical] Respiratory Rate 16 Respiratory Effort / Characteristics Respiratory Depth Respiratory Pattern Blood Pressure 78/55 L 79/63 L Blood Pressure [Left Arm] Blood Pressure Mean 62 67 Blood Pressure Mean [Left Arm] Pulse Oximetry 100 Oxygen Delivery Method Room Air Sepsis Recent Fever Within 48 Hours No Sepsis New/Unexplained Change in Mental Status No Sepsis Action Taken by Nursing No Action Required 10/03/23 21:59 10/03/23 22:00 10/03/23 22:18 Temperature Temperature Source Pulse Rate 71 Pulse Rate [Apical] Pulse Rate from SpO2 Sensor Pulse Rhythm [Apical] Respiratory Rate 18 Respiratory Effort / Characteristics Respiratory Depth Respiratory Pattern Blood Pressure Blood Pressure [Left Arm] 86/60 L Blood Pressure Mean Blood Pressure Mean [Left Arm] 68 Pulse Oximetry 100 100 Oxygen Delivery Method Room Air Room Air Sepsis Recent Fever Within 48 Hours Sepsis New/Unexplained Change in Mental Status Sepsis Action Taken by Nursing 10/03/23 22:21 10/03/23 22:45 10/03/23 22:51 Temperature Temperature Source Pulse Rate 68 69 Pulse Rate [Apical] Pulse Rate from SpO2 Sensor 68 69 Pulse Rhythm [Apical] Respiratory Rate 16 22 Respiratory Effort / Characteristics Respiratory Depth Respiratory Pattern Blood Pressure 82/63 L 84/68 L Blood Pressure [Left Arm] Blood Pressure Mean 69 73 Blood Pressure Mean [Left Arm] Pulse Oximetry 98 100 Oxygen Delivery Method Room Air Sepsis Recent Fever Within 48 Hours Sepsis New/Unexplained Change in Mental Status Sepsis Action Taken by Nursing 10/03/23 23:00 10/03/23 23:15 10/03/23 23:21 Temperature Temperature Source Pulse Rate 70 73 Pulse Rate [Apical] Pulse Rate from SpO2 Sensor 70 71 72 Pulse Rhythm [Apical] Respiratory Rate 15 20 17 Respiratory Effort / Characteristics Respiratory Depth Respiratory Pattern Blood Pressure 86/63 L 94/73 L Blood Pressure [Left Arm] Blood Pressure Mean 70 83 Blood Pressure Mean [Left Arm] Pulse Oximetry 100 100 100 Oxygen Delivery Method Room Air Sepsis Recent Fever Within 48 Hours Sepsis New/Unexplained Change in Mental Status Sepsis Action Taken by Nursing 10/03/23 23:30 10/03/23 23:33 10/03/23 23:45 Temperature 36.7 C Temperature Source Oral Pulse Rate 74 71 Pulse Rate [Apical] 75 Pulse Rate from SpO2 Sensor 71 Pulse Rhythm [Apical] Regular Respiratory Rate 14 18 18 Respiratory Effort / Characteristics Non-Labored Spontaneous Respiratory Depth Normal Respiratory Pattern Regular Blood Pressure 86/65 L 91/65 L Blood Pressure [Left Arm] 86/65 L Blood Pressure Mean 73 73 Blood Pressure Mean [Left Arm] 72 Pulse Oximetry 100 100 100 Oxygen Delivery Method Room Air Room Air Room Air Sepsis Recent Fever Within 48 Hours Sepsis New/Unexplained Change in Mental Status Sepsis Action Taken by Nursing 10/04/23 00:00 10/04/23 00:00 Temperature 36.7 C Temperature Source Oral Pulse Rate 71 Pulse Rate [Apical] 71 Pulse Rate from SpO2 Sensor Pulse Rhythm [Apical] Regular Respiratory Rate 16 15 Respiratory Effort / Characteristics Non-Labored Spontaneous Respiratory Depth Normal Respiratory Pattern Regular Blood Pressure 78/62 L Blood Pressure [Left Arm] 78/62 L Blood Pressure Mean 66 Blood Pressure Mean [Left Arm] 67 Pulse Oximetry 100 100 Oxygen Delivery Method Room Air Room Air Sepsis Recent Fever Within 48 Hours Sepsis New/Unexplained Change in Mental Status Sepsis Action Taken by Nursing Laboratory Data 10/03/23 22:40 10/03/23 22:40 Lab Results 10/03/23 10/03/23 Range/Units 22:40 23:22 WBC 4.50 L (4.8-10.8) K/ul RBC 2.07 L (4.70-6.10) M/uL Hgb 7.5 L (14.0-18.0) g/dl Hct 21.1 L (42.0-52.0) % MCV 101.9 H (80.0-100.0) fL MCH 36.2 H (25.0-34.0) pg MCHC 35.5 (32.0-36.0) g/dL RDW Std Deviation 46.8 H (36.4-46.3) fL RDW Coeff of Arturo 12.5 (11.5-14.5) % Plt Count 205 (130-400) K/uL MPV 10.1 (9.4-12.4) fL Immature Gran % (Auto) 0.4 % Neut % (Auto) 47.3 % Lymph % (Auto) 34.4 % [place] % (Auto) 17.3 % Eos % (Auto) 0.4 % Baso % (Auto) 0.2 % Neut # (Auto) 2.12 (1.40-6.50) K/uL Lymph # (Auto) 1.55 (1.20-3.40) K/uL [place] # (Auto) 0.78 H (0.11-0.59) K/uL Eos # (Auto) 0.02 (0.00-0.50) K/uL Baso # (Auto) 0.01 (0.00-0.20) K/uL Immature Gran # (Auto) 0.02 (0.01-0.20) K/uL Polychromasia 1+ PT 14.5 H (9.0-12.0) Seconds INR 1.4 H (0.9-1.1) APTT 33 H (21-31) Seconds PTT Ratio 1.2 Sodium 125 L (136-145) mmol/L Potassium 3.2 L (3.5-5.1) mmol/L Chloride 101 (98-107) mmol/L Carbon Dioxide 16 L (21-32) mmol/L Anion Gap 8 (3-11) BUN 20 (6-23) mg/dl Creatinine 2.19 H (0.6-1.4) mg/dl Est Cr Clr Drug Dosing 35.8 ml/min Est GFR ( Amer) 38.4 ml/min Est GFR (Non-Af Amer) 33.2 ml/min BUN/Creatinine Ratio 9.1 L (10-20) Glucose 94 (70-99(Fasting)) mg/dl Calcium 6.9 L (8.6-10.3) mg/dl Magnesium 1.5 L (1.7-2.4) mg/dl Iron 36 (35-175) mcg/dl TIBC TNP Unsaturated IBC < 55 L (155-355) mcg/dl Transferrin % Sat TNP Total Bilirubin 0.4 (0.2-1.0) mg/dl AST 37 (13-39) U/L ALT 20 (7-52) U/L Alkaline Phosphatase 196 H (34-104) U/L Ammonia 40.0 (18-72) umol/L Troponin I High Sens 4.2 (0-20) pg/ml Total Protein 5.0 L (6.0-8.3) gm/dl Albumin 1.9 L (3.4-5.0) gm/dl Globulin 3.1 (2.5-4.0) gm/dl Albumin/Globulin Ratio 0.6 L (0.9-2) Lipase 18 (11-82) U/L Vitamin B12 > 1500 H (180-914) pg/ml Folate > 22.30 (>5.38) ng/ml TSH 1.710 (0.300-4.500) uIu/ml Ethyl Alcohol mg/dL 107.1 H (<10.0) mg/dl Blood Type O Positive Antibody Screen NEGATIVE Administered Medications Discontinued Medications Sodium Chloride (Nss) 1,000 mls @ 999 mls/hr IV .Q1H1M SAMMY Stop: 10/03/23 23:30 Last Infusion: 10/03/23 23:30 Dose: Infused Documented By: Admin: 10/03/23 22:21 Dose: 999 mls/hr Documented By: GINETTE Multivitamins 10 ml/ Thiamine HCl 100 mg/ Folic Acid 1 mg/Sodium Chloride 1,011.2 mls @ 500 mls/hr IV .Q2H2M ONE Stop: 10/04/23 00:52 Last Infusion: 10/04/23 02:30 Dose: Infused Documented By: Admin: 10/04/23 00:20 Dose: 500 mls/hr Documented By: MICHELLE Potassium Chloride (K Jesus / Wtr) 10 meq in 100 mls @ 100 mls/hr IV ONE ONE Stop: 10/04/23 00:28 Last Infusion: 10/04/23 01:40 Dose: Infused Documented By: Admin: 10/04/23 00:30 Dose: 100 mls/hr Documented By: MICHELLE Magnesium Sulfate/Dextrose (Magnesium Sulfate / D5w) 1 gm in 100 mls @ 100 mls/hr IV NOW STA Stop: 10/04/23 00:29 Last Infusion: 10/04/23 01:40 Dose: Infused Documented By: Admin: 10/04/23 00:31 Dose: 100 mls/hr Documented By: MICHELLE Magnesium Sulfate/Dextrose (Magnesium Sulfate / D5w) 1 gm in 100 mls @ 50 mls/hr IV ONE STA Stop: 10/04/23 02:22 Last Infusion: 10/04/23 03:45 Dose: Infused Documented By: Admin: 10/04/23 01:40 Dose: 50 mls/hr Documented By: MICHELLE Albumin Human (Albumin 25%) 25 gm in 100 mls @ 50 mls/hr IV Q2H SAMMY Stop: 10/04/23 04:14 Last Infusion: 10/04/23 04:23 Dose: Infused Documented By: Admin: 10/04/23 02:50 Dose: 50 mls/hr Documented By: Infusion: 10/04/23 02:50 Dose: Infused Documented By: Admin: 10/04/23 00:56 Dose: 50 mls/hr Documented By: MICHELLE Sodium Chloride (Nss) 1,000 mls @ 999 mls/hr IV .Q1H1M SAMMY Stop: 10/04/23 04:30 Last Infusion: 10/04/23 04:33 Dose: Infused Documented By: Infusion: 10/04/23 03:55 Dose: 999 mls/hr Documented By: Admin: 10/04/23 02:30 Dose: 150 mls/hr Documented By: MICHELLE Thiamine HCl (Thiamine Hcl 100 Mg/Ml 2 Ml Vial) 100 mg IM NOW STA Stop: 10/03/23 22:52 Last Admin: 10/04/23 00:24 Dose: 100 mg Documented By: MICHELLE Imaging Data Radiologist's Impression: Chest X-Ray 10/03/23 22:18 XR chest 1V not portable CLINICAL HISTORY: Weakness TECHNIQUE: Single frontal radiograph of the chest was obtained. Comparison: Comparison is made to chest radiograph 01/11/2023 FINDINGS: No lines and tubes are seen. The cardiomediastinal silhouette is normal. The lungs are clear. No evidence of pleural effusion or pneumothorax. IMPRESSION: No acute chest disease. ACT 112: Negative or not required by law. Electronically signed by: Tay Padilla M.D. 10/04/2023 6:52 AM Discharge Plan Visit Data Chief Complaint: Leg Weakness, Bilateral Stated Complaint: WEAKNESS OF MUSCLES, NO APPETITE, ED Provider: Mario Arora ED Midlevel Provider: Deborah Sims Discharge Problem: Weakness, Anemia, Hypokalemia, Alcohol abuse, Acute kidney injury, Hyponatremia, Hypomagnesemia Patient Disposition: Admitted As Inpatient Condition: Good Discharge Instructions Interventions: ED Discharge Assessment Last Done: 10/04/23 04:00 Discharge Problem: Anemia Qualifiers: Anemia type: unspecified type Qualified Code(s): D64.9 - Anemia, unspecified
[2023-10-03] MEDS ORDERED: LORazepam 1 MG in SYRINGE 0.5 ML IV PRN (22:51)
[2023-10-03 23:00] LABS: Basophils # (auto) 0.01 K/uL (0.00-0.20); Basophils % (auto) 0.2 %; Eosinophils # (auto) 0.02 K/uL (0.00-0.50); Eosinophils % (auto) 0.4 %; Hematocrit (blood only) 21.1 % (42.0-52.0); Hemoglobin 7.5 g/dl (14.0-18.0); Immature Granulocytes # (auto) 0.02 K/uL (0.01-0.20); Immature Granulocytes % (auto) 0.4 %; Lymphocytes # (auto) 1.55 K/uL (1.20-3.40); Lymphocytes % (auto) 34.4 %; Mean Corpuscular Hemoglobin 36.2 pg (25.0-34.0); Mean Corpuscular Hgb Conc 35.5 g/dL (32.0-36.0); Mean Corpuscular Volume 101.9 fL (80.0-100.0); Mean Platelet Volume 10.1 fL (9.4-12.4); Monocytes # (auto) 0.78 K/uL (0.11-0.59); Monocytes % (auto) 17.3 %; Neutrophils # (auto) 2.12 K/uL (1.40-6.50); Neutrophils % (auto) 47.3 %; Platelet Count 205 K/uL (130-400); RDW Coefficient of Variation 12.5 % (11.5-14.5); RDW Standard Deviation 46.8 fL (36.4-46.3); Red Blood Count 2.07 M/uL (4.70-6.10)
[2023-10-03 23:18] LABS: Alanine Aminotransferase 20 U/L (7-52); Albumin Globulin Ratio 0.6 (0.9-2); Albumin Level 1.9 gm/dl (3.4-5.0); Alkaline Phosphatase 196 U/L (34-104); Anion Gap 8 (3-11); Aspartate Aminotransferase 37 U/L (13-39); BUN Creatinine Ratio 9.1 (10-20); Bilirubin,Total 0.4 mg/dl (0.2-1.0); Blood Urea Nitrogen 20 mg/dl (6-23); Calcium 6.9 mg/dl (8.6-10.3); Carbon Dioxide 16 mmol/L (21-32); Chloride 101 mmol/L (98-107); Creatinine Clr Calc Pharmacy 35.8 ml/min; Est GFR (African American) 38.4 ml/min; Est GFR (Non-African American) 33.2 ml/min; Globulin 3.1 gm/dl (2.5-4.0); Glucose 94 mg/dl (70-99(Fasting)); Lipase 18 U/L (11-82); Magnesium 1.5 mg/dl (1.7-2.4); Potassium 3.2 mmol/L (3.5-5.1); Sodium 125 mmol/L (136-145)
[2023-10-03 23:24] LABS: Troponin I High Sensitivity 4.2 pg/ml (0-20)
[2023-10-03 23:53] LABS: Polychromasia 1+
[2023-10-04 00:02] LABS: INR 1.4 (0.9-1.1); Partial Thromboplastin Ratio 1.2; Partial Thromboplastin Time 33 Seconds (21-31); Prothrombin Time 14.5 Seconds (9.0-12.0)
--- NOTE | 2023-10-04 00:13 | History & Physical Report ---
Date of Service October 04, 2023 Assessment & Plan (1) Anemia: (2) Alcohol abuse: (3) Acute kidney injury: (4) Hyponatremia: (5) Hypokalemia: (6) Protein calorie malnutrition: (7) Hypomagnesemia: (8) Weakness: (9) Folate deficiency: (10) Vitamin B12 deficiency: (11) Iron deficiency: (12) Hypertension: (13) Depression: Plan Anemia/protein calorie malnutrition- Hemoglobin 7.5 with hematocrit 21.1 Albumin level 1.9 INR 1.4 Hemoccult negative in the ED Likely secondary to iron, B12 and folate deficiencies, and overall decreased calorie intake Type and screen with consent obtained Order iron, B12 and folate levels MELD score 18 Alcohol abuse- Given banana bag in the ED AWSS protocol with IV Ativan Thiamine 100 mg IV daily Folic acid 1 mg IV daily Acute kidney injury/electrolyte disturbances- Creatinine 2.19, with baseline 0.52, Magnesium 1.5, sodium 125 and potassium 3.2 Received 1 L normal saline from the ED Finish banana bag From the ED received potassium chloride 10 mEq IV From the ED received magnesium sulfate 1 g IV, and will add an additional 1 g for total of [address] Place on NSS at 150 mL/h x 1 additional liter Check CBC with differential, chemistry profile and magnesium levels in the a.m. Anxiety and depression- Continue buspirone, fluoxetine and trazodone History of Present Illness Chief Complaint: The patient presents to the emergency department with worsening fatigue, g eneralized weakness, and decreased appetite Primary Care Provider: Kvng Mcghee III, ANTHONY The patient is a 52-year-old male with past medical history including alcohol abuse, alcohol withdrawal, alcoholic pancreatitis, folate deficiency, B12 deficiency, iron deficiency, depression, hypertension, tobacco use disorder and lumbar radiculopathy. He presents to the emergency department with several weeks of worsening fatigue, generalized weakness, decreased appetite. He reports averaging 3 large beers daily. He reports taking his medications as directed. Allergies Allergy/AdvReac Type Severity Reaction Status Date / Time No Known Allergies Allergy Verified 10/03/23 22:48 Home Medications Medication Instructions Recorded Confirmed Type multivitamin 1 tab PO DAILY 08/13/21 10/03/23 History ibuprofen 200 mg tablet (Advil) 400 mg PO Q6H PRN Pain 01/11/23 10/03/23 History metoprolol succinate 25 mg 25 mg PO QAM 01/11/23 10/03/23 History tablet,extended release 24 hr folic acid 1 mg tablet 1 mg PO DAILY #90 tabs 02/12/23 10/03/23 Rx pantoprazole 40 mg tablet,delayed 40 mg PO QAM #90 tabs 02/19/23 10/03/23 Rx release fluoxetine 40 mg capsule 40 mg PO DAILY #90 caps 02/20/23 10/03/23 Rx thiamine HCl (vitamin B1) 100 mg 100 mg PO QAM #90 tabs 03/28/23 10/03/23 Rx tablet magnesium oxide 400 mg PO DAILY #90 caps 04/27/23 10/03/23 Rx trazodone 50 mg tablet 50 mg PO HS #90 tabs 06/12/23 10/03/23 Rx buspirone 10 mg tablet 10 mg PO TID 90 days #270 tabs 08/02/23 10/03/23 Rx Past Med/Surg History Problem List (Updated 10/04/23 @ 01:25 by Keny Encarnacion MD) Protein calorie malnutrition Acute kidney injury Hypokalemia Acute alcoholic pancreatitis Alcohol withdrawal (Acute) Neurogenic claudication due to lumbar spinal stenosis Abdominal pain Elevated lipase Tethering of spinal cord Weakness (Acute) Alcohol abuse (Acute) Abnormal EKG (Acute) Folate deficiency Vitamin B12 deficiency Iron deficiency Ambulatory dysfunction (Acute) Depression Anemia (Acute) Hypertension Spinal stenosis at L4-L5 level Lumbar disc herniation Low back pain Impaired fasting glucose Anxiety (Acute) Tobacco use disorder (Acute 05/23/12) Thrombocytopenia (Acute) Lumbar radiculopathy Medical History Acute blood loss anemia Alcohol intoxication Alcohol withdrawal 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 Chronic alcohol use GI bleed Hypertension Hypertensive urgency Hypokalemia Hyponatremia Left foot drop Metabolic acidosis Nausea Pancreatitis Sensory polyneuropathy Smokes 1 pack of cigarettes per day Surgical History No pertinent past surgical history Family History Other Adopted Social History Smoking Status: Current every day smoker Tobacco Type: Cigarettes packs per day: 1; Cigarettes Per Day: 1 PPD; Second Hand Exposure: No; Do You Dip or Chew Tobacco: No; Hx Alcohol Use: Yes Alcohol type: beer Alcohol Intake Frequency Comment: 1/2 to one 5th of vodka daily, some beer Hx Substance Use: No Preferred Language: Citizen Of [place] Communication Ability: Effective Visual Impairment: No Limitations Hearing Ability: Normal 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 Beliefs That Will Affect Care: None marital status: Single Current Living Situation: Alone current occupational status: previously employed current occupation: Recently lost job working in an [employer] service How many Children do You have: 0 Feels Safe at Home: Yes Childhood Exposure to Second-Hand Smoke: Yes Diet: regular Dental Care, Regularly: No Physical Activity Frequency: Does not Exercise Seatbelt Use: always Sunscreen Use: No Assistive Devices: Glasses Review of Systems Review of Systems: The patient denies chest pain, palpitations, shortness of breath, dyspnea on exertion, cough, lower extremity swelling, sore throat, fevers, chills, sweats, nausea, vomiting, diarrhea , constipation, abdominal pain, pelvic pain, blood in urine or stool, dysuria, urinary frequency or urgency, lightheadedness, dizziness, headache, memory loss, loss of consciousness, rash, abnormal bruising or bleeding, imbalance, focal weakness, numbness or tingling in arms or legs, generalized arthralgias or myalgias, back or neck pain, or night sweats. The review of systems is otherwise negative other than for that already noted above, and at least 10 systems have been reviewed. Physical Exam Physical Exam: The patient is awake, alert and oriented 3, well developed and well nourished, normocephalic and atraumatic, lying in bed and in no acute distress. HEENT--PERRL, EOMI, mucous membranes and oropharynx dry. Neck--supple. No JVD. No bruits. Thyroid normal, trachea midline, no adenopathy. Heart--normal S1 and S2. No murmurs, rubs or gallops. Lungs--clear bilaterally, no respiratory distress, no accessory muscle use. Abdomen--normal bowel sounds and soft. Nontender. Nondistended Extremities--no cyanosis or clubbing. No edema. Dermatologic--normal skin turgor, normal color, no abnormal lymph nodes, no rash. Neurologic--cranial nerves II through XII grossly intact. Rheumatologic--normal range of motion. Psychiatric--normal affect. Results & Data Results & Data Vital Signs (Past 12 Hours) Vital Signs Temp Pulse Resp BP BP Pulse Ox O2 Del Method 10/03/23 22:21 68 16 82/63 L 98 Room Air 10/03/23 22:18 100 Room Air 10/03/23 22:00 71 18 100 Room Air 10/03/23 21:59 86/60 L 10/03/23 21:53 75 10/03/23 21:51 79/63 L 10/03/23 21:41 36.8 C 79 16 78/55 L 100 Room Air Laboratory Results Laboratory Results WBC 4.50 K/ul (4.8-10.8) L 10/03/23 22:40 RBC 2.07 M/uL (4.70-6.10) L 10/03/23 22:40 Hgb 7.5 g/dl (14.0-18.0) L 10/03/23 22:40 Hct 21.1 % (42.0-52.0) L 10/03/23 22:40 MCV 101.9 fL (80.0-100.0) H 10/03/23 22:40 MCH 36.2 pg (25.0-34.0) H 10/03/23 22:40 MCHC 35.5 g/dL (32.0-36.0) 10/03/23 22:40 RDW Std Deviation 46.8 fL (36.4-46.3) H 10/03/23 22:40 RDW Coeff of Arturo 12.5 % (11.5-14.5) 10/03/23 22:40 Plt Count 205 K/uL (130-400) 10/03/23 22:40 MPV 10.1 fL (9.4-12.4) 10/03/23 22:40 Immature Gran % (Auto) 0.4 % 10/03/23 22:40 Neut % (Auto) 47.3 % 10/03/23 22:40 Lymph % (Auto) 34.4 % 10/03/23 22:40 [place] % (Auto) 17.3 % 10/03/23 22:40 Eos % (Auto) 0.4 % 10/03/23 22:40 Baso % (Auto) 0.2 % 10/03/23 22:40 Neut # (Auto) 2.12 K/uL (1.40-6.50) 10/03/23 22:40 Lymph # (Auto) 1.55 K/uL (1.20-3.40) 10/03/23 22:40 [place] # (Auto) 0.78 K/uL (0.11-0.59) H 10/03/23 22:40 Eos # (Auto) 0.02 K/uL (0.00-0.50) 10/03/23 22:40 Baso # (Auto) 0.01 K/uL (0.00-0.20) 10/03/23 22:40 Immature Gran # (Auto) 0.02 K/uL (0.01-0.20) 10/03/23 22:40 Polychromasia 1+ 10/03/23 22:40 PT 14.5 Seconds (9.0-12.0) H 10/03/23 22:40 INR 1.4 (0.9-1.1) H 10/03/23 22:40 APTT 33 Seconds (21-31) H 10/03/23 22:40 PTT Ratio 1.2 10/03/23 22:40 Sodium 125 mmol/L (136-145) L 10/03/23 22:40 Potassium 3.2 mmol/L (3.5-5.1) L 10/03/23 22:40 Chloride 101 mmol/L (98-107) 10/03/23 22:40 Carbon Dioxide 16 mmol/L (21-32) L 10/03/23 22:40 Anion Gap 8 (3-11) 10/03/23 22:40 BUN 20 mg/dl (6-23) 10/03/23 22:40 Creatinine 2.19 mg/dl (0.6-1.4) H 10/03/23 22:40 Est Cr Clr Drug Dosing 35.8 ml/min 10/03/23 22:40 Est GFR ( Amer) 38.4 ml/min 10/03/23 22:40 Est GFR (Non-Af Amer) 33.2 ml/min 10/03/23 22:40 BUN/Creatinine Ratio 9.1 (10-20) L 10/03/23 22:40 Glucose 94 mg/dl (70-99(Fasting)) 10/03/23 22:40 Calcium 6.9 mg/dl (8.6-10.3) L 10/03/23 22:40 Magnesium 1.5 mg/dl (1.7-2.4) L 10/03/23 22:40 Iron 36 mcg/dl (35-175) 10/03/23 22:40 TIBC TNP 10/03/23 22:40 Unsaturated IBC < 55 mcg/dl (155-355) L 10/03/23 22:40 Transferrin % Sat TNP 10/03/23 22:40 Total Bilirubin 0.4 mg/dl (0.2-1.0) 10/03/23 22:40 AST 37 U/L (13-39) 10/03/23 22:40 ALT 20 U/L (7-52) 10/03/23 22:40 Alkaline Phosphatase 196 U/L (34-104) H 10/03/23 22:40 Ammonia 40.0 umol/L (18-72) 10/03/23 23:22 Troponin I High Sens 4.2 pg/ml (0-20) 10/03/23 22:40 Total Protein 5.0 gm/dl (6.0-8.3) L 10/03/23 22:40 Albumin 1.9 gm/dl (3.4-5.0) L 10/03/23 22:40 Globulin 3.1 gm/dl (2.5-4.0) 10/03/23 22:40 Albumin/Globulin Ratio 0.6 (0.9-2) L 10/03/23 22:40 Lipase 18 U/L (11-82) 10/03/23 22:40 Vitamin B12 > 1500 pg/ml (180-914) H 10/03/23 23:22 Folate > 22.30 ng/ml (>5.38) 10/03/23 23:22 TSH 1.710 uIu/ml (0.300-4.500) 10/03/23 22:40 Ethyl Alcohol mg/dL 107.1 mg/dl (<10.0) H 10/03/23 22:40 Blood Type O Positive 10/03/23 22:40 Antibody Screen NEGATIVE 10/03/23 22:40 Code Status & VTE Plan Code Status Full code VTE Prophylaxis Plan VTE Prophylaxis will be ordered: Yes PG Care Time/CCT Total # of Minutes Spent Total Time Spent with Patient: Total time spent is greater than 50% in coordination of care (as documented) at patient's floor/unit and/or counseling patient: Coding Level of Care Code 54273 INT INP/OBS CARE 3/75MIN Diagnoses Anemia D64.9 Anemia type: unspecified type Alcohol abuse F10.10 Acute kidney injury N17.9 Hyponatremia E87.1 Hypokalemia E87.6 Protein calorie malnutrition E46 Hypomagnesemia E83.42 Weakness R53.1 Folate deficiency E53.8 Vitamin B12 deficiency E53.8 Iron deficiency E61.1 Hypertension I10 Depression F32.A (1) Anemia Anemia type: unspecified type Qualified Code(s): D64.9 - Anemia, unspecified
[2023-10-04 00:14] LABS: Iron 36 mcg/dl (35-175); Unsaturated Iron Binding Cap < 55 mcg/dl (155-355)
[2023-10-04] MEDS: MULTI-VITAMIN INFUSION 10 ML, THIAMINE HCL 100 MG, FOLIC ACID 1 MG in SODIUM CHLORIDE 0... IV ONE (00:20)
[2023-10-04] MEDS: THIAMINE HCL 100 MG/ML 2 ML VIAL IM STA (00:24)
[2023-10-04] MEDS: POTASSIUM CHLORIDE / WTR 10 MEQ/100 ML PLCT IV ONE (00:30)
[2023-10-04] MEDS: MAGNESIUM SULFATE / D5W 1 GM/100 ML BAG IV STA ×2 (00:31→01:40)
[2023-10-04 00:33] LABS: Folate (Folic Acid),Ser orPlas > 22.30 ng/ml (>5.38)
[2023-10-04 00:34] LABS: Vitamin B12 > 1500 pg/ml (180-914)
[2023-10-04] MEDS: ALBUMIN 25% 25 GM/100 ML VIAL IV SCH (00:56)
[2023-10-04] MEDS ORDERED: ONDANSETRON INJ 2 MG/ML 2 ML VIAL IV PRN (01:26)
[2023-10-04] MEDS ORDERED: Ativan IV Alcohol Withdrawal--Active Protocol IV PRN (01:26)
[2023-10-04] MEDS ORDERED: LORazepam 3 MG in SYRINGE 1.5 ML IV PRN (01:26)
[2023-10-04] MEDS ORDERED: LORazepam 1 MG in SYRINGE 0.5 ML IV PRN (01:26)
[2023-10-04] MEDS ORDERED: LORazepam 2 MG in SYRINGE 1 ML IV PRN (01:26)
[2023-10-04] MEDS: SODIUM CHLORIDE 0.9% 1,000 ML IV SCH (01:44)
--- NOTE | 2023-10-04 06:54 | XRay Report ---
XR chest 1V not portable CLINICAL HISTORY: Weakness TECHNIQUE: Single frontal radiograph of the chest was obtained. Comparison: Comparison is made to chest radiograph 01/11/2023 FINDINGS: No lines and tubes are seen. The cardiomediastinal silhouette is normal. The lungs are clear. No evid ence of pleural effusion or pneumothorax. IMPRESSION: No acute chest disease. ACT 112: Negative or not required by law. Electronically signed by: Tay Padilla M.D. 10/04/2023 6:52 AM
--- NOTE | 2023-10-04 07:49 | Hospitalist Progress Note ---
Date of Service October 04, 2023 Assessment & Plan (1) Anemia: Plan: Anemia/protein calorie malnutrition- Hemoglobin 7.5 with hematocrit 21.1 Albumin level 1.9 INR 1.4 Hemoccult negative in the ED Likely secondary to iron, B12 and folate deficiencies, and overall decreased calorie intake Type and screen with consent obtained Order iron, B12 and folate levels MELD score 18 10/03 - Hgb 7.5--> 6.7 noting did get 2L IVF on admission and some aspect of dilution suspected - Type/screen on admission, given hgb <7 and ASIYA, type/cross 2 units, transfuse 1 unit NOW and repeat h/h following, additional PRBC as needed - Continue PPI IV BID, added carafate QID for now GI messaged/consulted given patientdoes have heavy NSAID use, 600-800mg/2-3x daily. No overt bleeding in stool (fecal occult negative in ER), however will obtain CTAP for further eval (no contrast given Cr, however improving) - Added LR @ 80cc/hr, NaHCO3 PO BID for now. Additional PO Kcl for K 3.2. Mag wnl on repeat - Diet changed to clear liquid for now, did get breakfast. Possible NPO for endoscopy however no acute bleeding reported - Added fecal occult w/ next BM to ensure no bleeding Monitor repeat CBC this afternoon, additional PRBC as neede F/u CTAP findins (2) Acute kidney injury: Plan: Acute kidney injury/electrolyte disturbances- Creatinine 2.19, with baseline 0.52, Magnesium 1.5, sodium 125 and potassium 3.2 Received 1 L normal saline from the ED Finish banana bag From the ED received potassium chloride 10 mEq IV From the ED received magnesium sulfate 1 g IV, and will add an additional 1 g for total of [address] Place on NSS at 150 mL/h x 1 additional liter Check CBC with differential, chemistry profile and magnesium levels in the a.m. (3) Alcohol abuse: Plan: Alcohol abuse- Given banana bag in the ED AWSS protocol with IV Ativan Thiamine 100 mg IV daily Folic acid 1 mg IV daily LR as above w/ NAHCO3 PO BID tablets for acidosis (4) Hyponatremia: Plan: improving on AM labs, additional IVF as above (5) Hypokalemia: Plan: improving, additional replacement ordered (6) Protein calorie malnutrition: (7) Hypomagnesemia: Plan: normal on repeat, monitor in AM telemetry monitoring NSR w/ PAcs (8) Weakness: (9) Folate deficiency: (10) Vitamin B12 deficiency: (11) Iron deficiency: (12) Hypertension: (13) Depression: Plan: Anxiety and depression- Continue buspirone, fluoxetine and trazodone not continued for now, ativan available w/ AWSS as above. Plan continued inpatient stay CTAP, GI consulted, PPI IV BID, carafate added, IVF Admission and Anticipated Discharge Date Admission Date: October 04, 2023 Supervising Physician Co-Signing Physician Notes The patient was not seen by me. The chart was reviewed. Case discussed with SEVEN Robert. Agree with assessment and plan Subjective BRIDGE NOTE: ADMITTED AFTER MIDNIGHT Eval this morning in 230-2, laying in bed. Seizure precautions in place. Still reports ongoing fatigue. Discussed hgb level, no blood in urine/stool, no hematemesis but does report has some dry heeves. Denies abdominal pain but also endorses not much of an appetite. Discussed NSAID use, he reports taking 3-4 ibuprofen (600-800mg) anywhere form 2-3 times daily. Fecal occult NEGATIVE in the ER. Discussed obtaining CTAP, blood possible (has never had before) and GI consultation. He reports he signed consent for blood on admission. Results & Data Results & Data Vital Signs (Past 12 Hours) Vital Signs Temp Pulse Pulse Resp BP BP Pulse Ox 10/04/23 07:39 65 10/04/23 04:29 64 10/04/23 04:25 10/04/23 04:16 36.5 C 63 16 99/67 L 98 10/04/23 04:00 36.9 C 65 15 92/62 L 99 10/04/23 03:45 65 18 92/62 L 99 10/04/23 03:42 77/59 L 10/04/23 03:30 65 17 77/55 L 98 10/04/23 03:15 65 15 83/55 L 97 10/04/23 03:06 66 18 98 10/04/23 02:45 67 13 90/62 L 99 10/04/23 01:45 36.9 C 68 18 84/64 L 99 10/04/23 01:42 69 14 85/70 L 100 10/04/23 01:36 68 10/04/23 01:30 69 16 88/65 L 100 10/04/23 01:26 10/04/23 01:15 92/63 L 10/04/23 01:00 74 16 89/68 L 100 10/04/23 01:00 36.7 C 70 14 89/68 L 100 10/04/23 00:30 72 14 87/62 L 100 10/04/23 00:18 72 16 88/38 L 100 10/04/23 00:15 70 17 79/62 L 100 10/04/23 00:00 71 15 78/62 L 100 10/04/23 00:00 36.7 C 71 16 78/62 L 100 10/03/23 23:45 71 18 91/65 L 100 10/03/23 23:33 36.7 C 75 18 86/65 L 100 10/03/23 23:30 74 14 86/65 L 100 10/03/23 23:21 73 17 100 10/03/23 23:15 20 94/73 L 100 10/03/23 23:00 70 15 86/63 L 100 10/03/23 22:51 69 22 100 10/03/23 22:45 84/68 L 10/03/23 22:21 68 16 82/63 L 98 10/03/23 22:18 100 10/03/23 22:00 71 18 100 10/03/23 21:59 86/60 L 10/03/23 21:53 75 10/03/23 21:51 79/63 L 10/03/23 21:41 36.8 C 79 16 78/55 L 100 Pulse Ox O2 Del Method O2 Del Method 10/04/23 07:39 10/04/23 04:29 10/04/23 04:25 Room Air 10/04/23 04:16 Room Air 10/04/23 04:00 Room Air 10/04/23 03:45 Room Air 10/04/23 03:42 10/04/23 03:30 Room Air 10/04/23 03:15 Room Air 10/04/23 03:06 Room Air 10/04/23 02:45 Room Air 10/04/23 01:45 Room Air 10/04/23 01:42 Room Air 10/04/23 01:36 10/04/23 01:30 Room Air 10/04/23 01:26 95 Room Air 06/27/24 01:15 10/04/23 01:00 Room Air 10/04/23 01:00 Room Air 10/04/23 00:30 Room Air 10/04/23 00:18 Room Air 10/04/23 00:15 Room Air 10/04/23 00:00 Room Air 10/04/23 00:00 Room Air 10/03/23 23:45 Room Air 10/03/23 23:33 Room Air 10/03/23 23:30 Room Air 10/03/23 23:21 10/03/23 23:15 Room Air 10/03/23 23:00 10/03/23 22:51 10/03/23 22:45 10/03/23 22:21 Room Air 10/03/23 22:18 Room Air 10/03/23 22:00 Room Air 10/03/23 21:59 10/03/23 21:53 10/03/23 21:51 10/03/23 21:41 Room Air PG Care Time/CCT Total # of Minutes Spent Total Time Spent with Patient: Total time spent is greater than 50% in coordination of care (as documented) at patient's floor/unit and/or counseling patient: Coding Level of Care Code 68663 SUB INP/OBS CARE 3/50MIN Diagnoses Anemia D64.9 Anemia type: unspecified type Acute kidney injury N17.9 Alcohol abuse F10.10 Hyponatremia E87.1 Hypokalemia E87.6 Protein calorie malnutrition E46 Hypomagnesemia E83.42 Weakness R53.1 Folate deficiency E53.8 Vitamin B12 deficiency E53.8 Iron deficiency E61.1 Hypertension I10 Depression F32.A (1) Anemia Anemia type: unspecified type Qualified Code(s): D64.9 - Anemia, unspecified
[2023-10-04] MEDS: PANTOprazole 40 MG in SYRINGE 0 ML IV SCH (08:36)
[2023-10-04] MEDS: FLUoxetine HCL 20 MG CAP PO SCH (08:37)
[2023-10-04] MEDS: THIAMINE HCL 100 MG in SYRINGE 9 ML IV SCH (08:37)
[2023-10-04] MEDS: FOLIC ACID 1 MG in SYRINGE 9.8 ML IV SCH (08:37)
[2023-10-04] MEDS: busPIRone 5 MG TAB PO SCH (08:37)
[2023-10-04 08:51] LABS: Albumin Level 2.5 gm/dl (3.4-5.0); BUN Creatinine Ratio 10.1 (10-20); Bilirubin,Total 0.5 mg/dl (0.2-1.0); Calcium 6.8 mg/dl (8.6-10.3); Creatinine Clr Calc Pharmacy 43.4 ml/min; Est GFR (African American) 49.4 ml/min; Est GFR (Non-African American) 42.6 ml/min; Globulin 2.4 gm/dl (2.5-4.0); Magnesium 2.1 mg/dl (1.7-2.4); Potassium 3.2 mmol/L (3.5-5.1); Total Protein 4.9 gm/dl (6.0-8.3)
[2023-10-04 09:17] LABS: Hematocrit (blood only) 19.8 % (42.0-52.0); Hemoglobin 6.9 g/dl (14.0-18.0); Mean Corpuscular Hemoglobin 36.1 pg (25.0-34.0); Mean Corpuscular Hgb Conc 34.8 g/dL (32.0-36.0); Mean Corpuscular Volume 103.7 fL (80.0-100.0); Mean Platelet Volume 10.3 fL (9.4-12.4); Platelet Count 169 K/uL (130-400); RDW Coefficient of Variation 12.9 % (11.5-14.5); RDW Standard Deviation 47.7 fL (36.4-46.3); Red Blood Count 1.91 M/uL (4.70-6.10)
[2023-10-04] MEDS: LACTATED RINGER'S 1,000 ML IV SCH (09:35)
[2023-10-04] MEDS ORDERED: SODIUM CHLORIDE 0.9% 250 ML IV PRN (09:38)
[2023-10-04 10:03] LABS: Basophils # (auto) 0.01 K/uL (0.00-0.20); Basophils % (auto) 0.2 %; Eosinophils # (auto) 0.03 K/uL (0.00-0.50); Eosinophils % (auto) 0.7 %; Immature Granulocytes # (auto) 0.02 K/uL (0.01-0.20); Immature Granulocytes % (auto) 0.5 %; Lymphocytes # (auto) 1.45 K/uL (1.20-3.40); Monocytes # (auto) 0.73 K/uL (0.11-0.59); Monocytes % (auto) 16.6 %; Neutrophils # (auto) 2.16 K/uL (1.40-6.50)
--- NOTE | 2023-10-04 10:14 | Gastrointestinal Consultation ---
Date of Consultation October 04, 2023 Assessment & Plan (1) Anemia: 52 year old male with history of old male with history of ongoing ETOH abuse, alcohol withdrawal, alcoholic pancreatitis, folate deficiency, B12 deficiency, iron deficiency, depression, hypertension, tobacco use disorder and lumbar radiculopathy admitted through the ED w/ weakness - GI asked to evaluate for anemia in the setting of ETOH abuse, NSAIDs use. He is hemodynamically stable w/ brown stools and no report of black or bloody ou tput to indicate an active GI bleed. His anemia is likely multifactorial. Recommend PO PPI BID for 1 month then PO PPI once daily. Trend H&H. Monitor and document GI output. Transfuse PRN per primary service. Check iron studies, ferritin. Recommend OP EGD/Colonoscopy. Encouraged rn long term care ETOH cessation, tobacco cessation. Limit NSAIDs. Thank you for allowing us to participate in the care of this patient. Please call with any acute changes, questions or concerns. Please see addendum below with additional recommendation from my supervising physician. I spent a total of 60 minutes on the date of service in review of patient's record, and previously obtained information in person and appropriate medical visit, discussion and education of plan, with patient and/or caregiver, placing orders for tests/referral/procedures as medically necessary and documentation of pertinent clinical information in patient's medical records for their visit today. Supervising Physician Co-Signing Physician Notes I examined the patient and reviewed patient's chart , laboratory data and imaging studies. I agree with with assessment and plan of care as suggested by advanced practice provider. Patient seen and examined. CT scan reviewed. Labs reviewed. Worsening of chronic anemia. Acute renal failure. Hyponatremia. Malnutrition. Worsening of peripancreatic collection, likely pseudocyst. Acute on chronic alcoholic pancreatitis. Alcoholic liver disease. Continue supportive care. Continue pantoprazole. Continue to correct renal failure and hyponatremia. Follow-up in the office. Outpatient endoscopic evaluation of anemia with EGD and colonoscopy. History of Present Illness Reason for Consultation: anemia, alcoholic, heavy NSAID use Requesting Physician: Chandler Attending Physician: Uday Arteaga MD History of Present Illness 52 year old male with history of ongoing ETOH abuse, alcohol withdrawal, alcoholic pancreatitis, folate deficiency, B12 deficiency, iron deficiency, depression, hypertension, tobacco use disorder and lumbar radiculopathy admitted through the ED w/ weakness - GI asked to evaluate for anemia in the setting of ETOH abuse, NSAIDs use. Pt was seen and evaluated, chart reviewed. Notes from a GI standpoint he feels well. Denies abd pain. No nausea, vomiting. No GERD. No dysphagia. 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 He has had occasionally loose stools since his previous bouts of pancreatitis. Stools are brown or yellow. No report of black or bloody stools. Daily tobacco use 1/4 PPD Daily NSAID use 2-4 advil daily Daily beer use, at least 3-4 large beers daily HGB 7.5 --> 6.9 MCV 103.7 PLT 169 INR 1.4 Tbili 0.5 AST 36 ALT 18 ALKP 168 No recent abdominal imaging Family history is largely unknown No previous EGD/Colonoscopy Allergies Allergy/AdvReac Type Severity Reaction Status Date / Time No Known Allergies Allergy Verified 10/03/23 22:48 Home Medications Medication Instructions Recorded Confirmed Type multivitamin 1 tab PO DAILY 08/13/21 10/03/23 History ibuprofen 200 mg tablet (Advil) 400 mg PO Q6H PRN Pain 01/11/23 10/03/23 History metoprolol succinate 25 mg 25 mg PO QAM 01/11/23 10/03/23 History tablet,extended release 24 hr folic acid 1 mg tablet 1 mg PO DAILY #90 tabs 02/12/23 10/03/23 Rx pantoprazole 40 mg tablet,delayed 40 mg PO QAM #90 tabs 02/19/23 10/03/23 Rx release fluoxetine 40 mg capsule 40 mg PO DAILY #90 caps 02/20/23 10/03/23 Rx thiamine HCl (vitamin B1) 100 mg 100 mg PO QAM #90 tabs 03/28/23 10/03/23 Rx tablet magnesium oxide 400 mg PO DAILY #90 caps 04/27/23 10/03/23 Rx trazodone 50 mg tablet 50 mg PO HS #90 tabs 06/12/23 10/03/23 Rx buspirone 10 mg tablet 10 mg PO TID 90 days #270 tabs 08/02/23 10/03/23 Rx Patient History Medical History Acute blood loss anemia Alcohol intoxication Alcohol withdrawal 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 Chronic alcohol use GI bleed Hypertension Hypertensive urgency Hypokalemia Hyponatremia Left foot drop Metabolic acidosis Nausea Pancreatitis Sensory polyneuropathy Smokes 1 pack of cigarettes per day Surgical History No pertinent past surgical history Family History Other Adopted Social History Smoking Status: Current every day smoker Tobacco Type: Cigarettes packs per day: 1; Cigarettes Per Day: 1 PPD; Second Hand Exposure: No; Do You Dip or Chew Tobacco: No; Hx Alcohol Use: Yes Alcohol type: beer Alcohol Intake Frequency Comment: 1/2 to one 5th of vodka daily, some beer Hx Substance Use: No Preferred Language: Beninese Communication Ability: Effective Visual Impairment: No Limitations Hearing Ability: Normal Adjunct Nursing Faculty Required: No Beliefs That Will Affect Care: None marital status: Single Current Living Situation: Alone current occupational status: previously employed current occupation: Recently lost job working in an [employer] service How many Children do You have: 0 Feels Safe at Home: Yes Childhood Exposure to Second-Hand Smoke: Yes Diet: regular Dental Care, Regularly: No Physical Activity Frequency: Does not Exercise Seatbelt Use: always Sunscreen Use: No Assistive Devices: Glasses Review of Systems Review of Systems: All other findings negative except as noted in HPI. Physical Exam Constitutional: WD/WN, vitals as above Respiratory: normal respiratory effort Cardiovascular: Rate/Rhythm: regular rate Gastrointestinal (Abdomen): Inspection/Auscultation: normal bowel sounds Percussion/Palpation: abdomen soft; abdomen nontender, no guarding and abdomen n ot rigid Skin: no rashes, warm and dry Results & Data Vital Signs (Past 12 Hours) Vital Signs Temp Pulse Pulse Resp BP BP Pulse Ox 10/04/23 07:42 36.2 C L 73 17 94/62 L 97 10/04/23 07:39 65 10/04/23 04:29 64 10/04/23 04:25 10/04/23 04:16 36.5 C 63 16 99/67 L 98 10/04/23 04:00 36.9 C 65 15 92/62 L 99 10/04/23 03:45 65 18 92/62 L 99 10/04/23 03:42 77/59 L 10/04/23 03:30 65 17 77/55 L 98 06/27/24 03:15 65 15 83/55 L 97 10/04/23 03:06 66 18 98 10/04/23 02:45 67 13 90/62 L 99 10/04/23 01:45 36.9 C 68 18 84/64 L 99 10/04/23 01:42 69 14 85/70 L 100 10/04/23 01:36 68 10/04/23 01:30 69 16 88/65 L 100 10/04/23 01:26 10/04/23 01:15 92/63 L 10/04/23 01:00 74 16 89/68 L 100 10/04/23 01:00 36.7 C 70 14 89/68 L 100 10/04/23 00:30 72 14 87/62 L 100 10/04/23 00:18 72 16 88/38 L 100 10/04/23 00:15 70 17 79/62 L 100 10/04/23 00:00 71 15 78/62 L 100 10/04/23 00:00 36.7 C 71 16 78/62 L 100 10/03/23 23:45 71 18 91/65 L 100 10/03/23 23:33 36.7 C 75 18 86/65 L 100 10/03/23 23:30 74 14 86/65 L 100 10/03/23 23:21 73 17 100 10/03/23 23:15 20 94/73 L 100 10/03/23 23:00 70 15 86/63 L 100 10/03/23 22:51 69 22 100 10/03/23 22:45 84/68 L 10/03/23 22:21 68 16 82/63 L 98 10/03/23 22:18 100 Pulse Ox O2 Del Method O2 Del Method 10/04/23 07:42 Room Air 10/04/23 07:39 10/04/23 04:29 10/04/23 04:25 Room Air 10/04/23 04:16 Room Air 10/04/23 04:00 Room Air 10/04/23 03:45 Room Air 10/04/23 03:42 10/04/23 03:30 Room Air 10/04/23 03:15 Room Air 10/04/23 03:06 Room Air 10/04/23 02:45 Room Air 10/04/23 01:45 Room Air 06/27/24 01:42 Room Air 10/04/23 01:36 10/04/23 01:30 Room Air 10/04/23 01:26 95 Room Air 10/04/23 01:15 10/04/23 01:00 Room Air 10/04/23 01:00 Room Air 10/04/23 00:30 Room Air 10/04/23 00:18 Room Air 10/04/23 00:15 Room Air 10/04/23 00:00 Room Air 10/04/23 00:00 Room Air 10/03/23 23:45 Room Air 10/03/23 23:33 Room Air 10/03/23 23:30 Room Air 10/03/23 23:21 10/03/23 23:15 Room Air 10/03/23 23:00 10/03/23 22:51 10/03/23 22:45 10/03/23 22:21 Room Air 10/03/23 22:18 Room Air Laboratory Results 10/04/23 10/03/23 10/03/23 Range/Units 08:12 23:22 22:40 WBC 4.40 L 4.50 L (4.8-10.8) K/ul RBC 1.91 L 2.07 L (4.70-6.10) M/uL Hgb 6.9 L* 7.5 L (14.0-18.0) g/dl Hct 19.8 L* 21.1 L (42.0-52.0) % MCV 103.7 H 101.9 H (80.0-100.0) fL MCH 36.1 H 36.2 H (25.0-34.0) pg MCHC 34.8 35.5 (32.0-36.0) g/dL RDW Std Deviation 47.7 H 46.8 H (36.4-46.3) fL RDW Coeff of Arturo 12.9 12.5 (11.5-14.5) % Plt Count 169 205 (130-400) K/uL MPV 10.3 10.1 (9.4-12.4) fL Immature Gran % (Auto) 0.5 0.4 % Neut % (Auto) 49.0 47.3 % Lymph % (Auto) 33.0 34.4 % Sibley % (Auto) 16.6 17.3 % Eos % (Auto) 0.7 0.4 % Baso % (Auto) 0.2 0.2 % Neut # (Auto) 2.16 2.12 (1.40-6.50) K/uL Lymph # (Auto) 1.45 1.55 (1.20-3.40) K/uL Sibley # (Auto) 0.73 H 0.78 H (0.11-0.59) K/uL Eos # (Auto) 0.03 0.02 (0.00-0.50) K/uL Baso # (Auto) 0.01 0.01 (0.00-0.20) K/uL Immature Gran # (Auto) 0.02 0.02 (0.01-0.20) K/uL Polychromasia 1+ PT 14.5 H (9.0-12.0) Seconds INR 1.4 H (0.9-1.1) APTT 33 H (21-31) Seconds PTT Ratio 1.2 Sodium 128 L 125 L (136-145) mmol/L Potassium 3.2 L 3.2 L (3.5-5.1) mmol/L Chloride 106 101 (98-107) mmol/L Carbon Dioxide 14 L 16 L (21-32) mmol/L Anion Gap 8 8 (3-11) BUN 18 20 (6-23) mg/dl Creatinine 1.78 H D 2.19 H (0.6-1.4) mg/dl Est Cr Clr Drug Dosing 43.4 35.8 ml/min Est GFR ( Amer) 49.4 38.4 ml/min Est GFR (Non-Af Amer) 42.6 33.2 ml/min BUN/Creatinine Ratio 10.1 9.1 L (10-20) Glucose 99 94 (70-99(Fasting)) mg/dl Osmolality 266 L (280-300) mOsm/kg Calcium 6.8 L 6.9 L (8.6-10.3) mg/dl Magnesium 2.1 1.5 L (1.7-2.4) mg/dl Iron 36 (35-175) mcg/dl TIBC TNP Unsaturated IBC < 55 L (155-355) mcg/dl Transferrin % Sat TNP Ferritin Pending Total Bilirubin 0.5 0.4 (0.2-1.0) mg/dl AST 36 37 (13-39) U/L ALT 18 20 (7-52) U/L Alkaline Phosphatase 168 H 196 H (34-104) U/L Ammonia 40.0 (18-72) umol/L Troponin I High Sens 4.2 (0-20) pg/ml Total Protein 4.9 L 5.0 L (6.0-8.3) gm/dl Albumin 2.5 L 1.9 L (3.4-5.0) gm/dl Globulin 2.4 L 3.1 (2.5-4.0) gm/dl Albumin/Globulin Ratio 1.0 0.6 L (0.9-2) Lipase 18 (11-82) U/L Vitamin B12 > 1500 H (180-914) pg/ml Folate > 22.30 (>5.38) ng/ml TSH 1.710 (0.300-4.500) uIu/ml Ethyl Alcohol mg/dL 107.1 H (<10.0) mg/dl Blood Type O Positive Antibody Screen NEGATIVE PG Care Time/CCT Total # of Minutes Spent Total Time Spent with Patient: Total time spent is greater than 50% in coordination of care (as documented) at patient's floor/unit and/or counseling patient: Coding Level of Care Code 81084 IN/OBS CONSULT LVL 4,60M Diagnoses Anemia D64.9 Anemia type: unspecified type (1) Anemia Anemia type: unspecified type Qualified Code(s): D64.9 - Anemia, unspecified
[2023-10-04 10:33] LABS: Ferritin 565.8 ng/ml (8-388)
--- NOTE | 2023-10-04 10:51 | Electrocardiogram Report ---
Test Reason : Blood Pressure : / mmHG Vent. Rate : 074 BPM Atrial Rate : 074 BPM P-R Int : 152 ms QRS Dur : 096 ms QT Int : 394 ms P-R-T Axes : 029 056 005 degrees QTc Int : 437 ms Normal sinus rhythm T-wave inversion in Anterior leads , consider ischemia Abnormal ECG When compared with ECG of 11-JAN-2023 14:15, Premature atrial complexes are no longer Present T wave inversion now evident in Anterior leads Confirmed by Luis A Loza ([id number]) on 10/04/2023 10:50:50 AM Referred By: REFERRED SELF Confirmed By:Luis A Loza
[2023-10-04] MEDS: POTASSIUM CHLORIDE CRTAB 20 MEQ TABCR PO STA (10:53)
[2023-10-04] MEDS: SODIUM BICARBONATE 650 MG TAB PO SCH (10:53)
[2023-10-04 11:00] LABS: Appearance Urine Clear (Clear); Bacteria Urine Automated None Seen (None Seen); Bilirubin Urine Negative (Negative); Blood Urine Negative (Negative); Cast Urine Automated 0-2 /lpf (0-2); Color Urine Yellow; Epithelial Cell Urine Auto 0-2 /hpf (0-2); Glucose Urine UA Negative (Negative); Ketones Urine Negative (Negative); Leukocyte Esterase Urine Negative (Negative); Nitrite Urine Negative (Negative); Protein Urine Trace (Negative); Specific Gravity Urine 1.006 (1.000-1.030); Urobilinogen Urine Negative (Negative); WBC Urine Automated 0-5 /hpf (0-5); pH Urine 6.5 (4.5-7.5)
--- NOTE | 2023-10-04 11:51 | CT Scan Report ---
CT abd pelvis wo con CLINICAL HISTORY: ester, anemia, alcohol abuse, weakness TECHNIQUE: Helical axial images of the abdomen and pelvis were obtained. Automated dose lowering tech niques and/or adjustment according to patient size were utilized for this exam. This exam was perfor med without intravenous contrast. CT DOSE: 735.31 mGy.cm COMPARISON: Comparison is made to CT abdomen pelvis 01/11/2023 FINDINGS: Lower chest: Bibasilar atelectasis versus scarring is seen. Trace bilateral pleural effusions. Liver: Hepatic steatosis is noted. Gallbladder and biliary tree: The gallbladder wall appears thickened at 3 mm with mild pericholecysti c fluid. No intra- or extrahepatic biliary ductal dilation. Pancreas: Multiloculated fluid collection about the pancreatic tail has significantly enlarged measur ing 10.5 x 6.5 cm. A pancreatic body lesion measures 2.3 cm. Spleen: Unremarkable. Adrenals: Unremarkable. Kidneys and ureters: Perinephric stranding is noted bilaterally. Bladder: Unremarkable. Reproductive organs: Unremarkable. Bowel: Unremarkable. Lymph nodes Retroperitoneal: Unremarkable. Pelvic: Unremarkable. Mesenteric: Unremarkable. Peritoneum: Peritoneal fat stranding is seen about the pancreas, gallbladder, and left paracolic gutt er Vessels: Atherosclerotic calcifications are seen. Abdominal wall: Unremarkable. Bones: Degenerative changes in the visualized spine. IMPRESSION: 1. Findings are suggestive of acute pancreatitis with acute peripancreatic collections. 2. Pericholecystic fluid is likely reactive, less likely to represent acute cholecystitis. 3. Hepatic steatosis. 4. Trace bilateral pleural effusions. ACT 112: Negative or not required by law. Electronically signed by: Tay Padilla M.D. 10/04/2023 11:50 AM
[2023-10-04] MEDS: SUCRALFATE 1 GM/10 ML UDC PO SCH (13:41)
[2023-10-04 15:25] LABS: Hematocrit (blood only) 20.8 % (42.0-52.0); Hemoglobin 7.3 g/dl (14.0-18.0); Mean Corpuscular Hemoglobin 35.3 pg (25.0-34.0); Mean Corpuscular Hgb Conc 35.1 g/dL (32.0-36.0); Mean Corpuscular Volume 100.5 fL (80.0-100.0); Mean Platelet Volume 10.2 fL (9.4-12.4); Platelet Count 151 K/uL (130-400); RDW Coefficient of Variation 13.5 % (11.5-14.5); RDW Standard Deviation 50.1 fL (36.4-46.3); Red Blood Count 2.07 M/uL (4.70-6.10); White Blood Count 4.36 K/ul (4.8-10.8)
[2023-10-04] MEDS: LORazepam 0.5 MG in SYRINGE 0.25 ML IV STA (20:19)
[2023-10-04 23:26] LABS: Hematocrit (blood only) 22.4 % (42.0-52.0); Hemoglobin 7.7 g/dl (14.0-18.0)
[2023-10-04 23:59] LABS: BUN Creatinine Ratio 12.6 (10-20); Calcium 7.3 mg/dl (8.6-10.3); Creatinine Clr Calc Pharmacy 54.1 ml/min; Est GFR (African American) 64.3 ml/min; Est GFR (Non-African American) 55.5 ml/min; Potassium 3.9 mmol/L (3.5-5.1)
--- NOTE | 2023-10-05 07:44 | Hospitalist Progress Note ---
Date of Service October 05, 2023 Assessment & Plan (1) Anemia: Plan: Anemia/protein calorie malnutrition- Hemoglobin 7.5 with hematocrit 21.1 Albumin level 1.9 INR 1.4 Hemoccult negative in the ED Likely secondary to iron, B12 and folate deficiencies, and overall decreased calorie intake Type and screen with consent obtained Order iron, B12 and folate levels MELD score 18 10/03 - Hgb 7.5--> 6.7 noting did get 2L IVF on admission and some aspect of dilution suspected - Type/screen on admission, given hgb <7 and ASIYA, type/cross 2 units, transfuse 1 unit NOW and repeat h/h following, additional PRBC as needed - Continue PPI IV BID, added carafate QID for now GI messaged/consulted given patientdoes have heavy NSAID use, 600-800mg/2-3x daily. No overt bleeding in stool (fecal occult negative in ER), however will obtain CTAP for further eval (no contrast given Cr, however improving) - Added LR @ 80cc/hr, NaHCO3 PO BID for now. Additional PO Kcl for K 3.2. Mag wnl on repeat - Diet changed to clear liquid for now, did get breakfast. Possible NPO for endoscopy however no acute bleeding reported - Added fecal occult w/ next BM to ensure no bleeding F/u CTAP findings 10/04 Continue PPI IV BID, carafate. Added Creon for chronic diarrhea/pancreatitis Made NPO/bowel rest after CTAP findings noting 1. Findings are suggestive of acute pancreatitis with acute peripancreatic collections. 2. Pericholecystic fluid is likely reactive, less likely to represent acute cholecystitis. 3. Hepatic steatosis. 4. Trace bilateral pleural effusions. GI on consult, worsening peripancreatic collection, likely pseduocytst. Not having abd pain reported/can have diet. Alcoholic liver disease. Supportive care, continue protonix. Outpt eval anemia w/ EGD/colonoscopy s/p 1 u PRBC for hgb 6.7, repeat 7.3 but improved to 7.7 on repeat last evening despite continuous IVF. Lasix x 1 w/ PRBC given copious IVF to prevent overload Additional PRBC for Hgb <8 given ongoing fatigue/shortness of breath Na improving, 132. K 3.7. Mag 1.6 and additional 2gm IV ordered TB 0.8, INR 1.4--> 1.3 Clear liquid diet ordered for today/advance as tolerated. DC IVF. Continue NaHCO PO BID, consider increasing to TID if needed Aitvan 0.5mg IV last evening for tremors/anxiety, AWSS/ativan IV available as needed Monitor labs/exam on repeat (2) Acute kidney injury: Plan: Cr 2.19 on admission w/ electrolyte disturbances/hypomag/hypokalemia likely 2nd to alchol use Banana bag in ER, additional IVF for CTAP findings Cr normalized, 1u pRBC w/ lasix as above, clear liquid diet/adv as tolerated Renal dose meds/avoid nephrotoxins UA not appearing infected BMP in AM (3) Alcohol abuse: Plan: Etoh 107 on admission, 2-3beers/daily s/p banana bag, continue thiamine/folic acid. B12 not deficient IVF as above, NaHCO3 PO BID as above for acidosis but denies abd pain at this time AWSS protocol available if needed, has not needed but did get 0.5mg IV ativan x1 overnight for anxiety AVOID NSAIDS Creon added Rec avoidance of alcohol Telemetry monitoring, monitor for any DTs (none at present), seizure pads in place given Na on admission but improved to 134 w treatment/IVF and NaHCO3 tablets Monitor (4) Hyponatremia: Plan: improving on AM labs to 134. IVF had been provided, diet as allowed. Urine Na LOW 90s, 2nd to alcohol use Will put fluid restriction 1500ml/day (5) Hypokalemia: Plan: resolved however was given PO w/ lasix w/ PRBC and will monitor (6) Protein calorie malnutrition: Plan: nutrition/supplements to be provided (7) Hypomagnesemia: Plan: normal on repeat but continued to monitor and again low and IV replacement ordered and will continue to monitor/replace if needed (8) Weakness: Plan: improving but still present therapy evals to be undertaken (9) Folate deficiency: Plan: continue supp for etoh, level not low on check but remains on supp (10) Vitamin B12 deficiency: Plan: hx, not low on check (11) Iron deficiency: Plan: iron studies NOT deficient, ferritin actually elevated and suspect 2nd to alcohol use/elevation on admission DOES NEED EGD/C-SCOPE IN OUTPT f/u unless acute bleeding witnessed to prompt inp atient eval again denies blood in stool, had brown BM this morning per patient (12) Hypertension: Plan: hx of such, NOT on meds. BP borderline low but not lightheaded/dizzy and fall precautions in place monitor w/ PRBC/resus as above (13) Depression: Plan: Anxiety and depression- Continue buspirone, fluoxetine trazodone not continued for now, ativan available w/ AWSS as above. Plan continued inpatient stay Admission and Anticipated Discharge Date Admission Date: October 04, 2023 Supervising Physician Co-Signing Physician Notes The patient was not seen by me. The chart was reviewed. Case discussed with SEVEN Robert. Agree with assessment and plan Subjective Evaluated this morning around lunch, having some pain in his back/shoulders, does have chronic lower back pain. No recent falls. Feels a little better than yesterday. Some shortness of breath, did get lasix w/ 2nd unit PRBC. BP borderline but no dizziness. No chest pain. +BM this morning, no tara blood. Getting 2nd unit PRBC today given fatigue/SOB and BP. Renal function back to baseline. Discussed adding Creon and advancing diet. monitoring for bleeding. Will check cervical spine xrays, does have hx buldging disc and why he takes NSAIDs. Given oxycodone 5mg x 1 this morning and reports improvement in pain. No evidence for DTs at present time. Encouraged avoidance of alcohol. Denies abdominal pain at this time. Does endorse better bowel movements/no diarrhea if he eats healthier. Questions/concerns addressed at this time. Physical Exam Physical Exam: General: 52 yo male sitting up in bed, general pallor but NAD Head atraumatic, normocephalic, +cervical tenderness but no weakness, mm slightly dry, trachea midline, pupils equal in size Resp; even/unlabored, slightly diminished int he bases but no obvious w/c/r, on room air CV: RRR, faint systolic murmur, no pitting edema/calf tenderness GI: +BS, slightly slow but soft/NT, no rebound no kramer MSK/Neuro: chronic lumbar spine issues but dorsiflexion/plantarflexion intact, pulses palpable, UE strength testing wnl Psych; AOx3 cooperative with exam Results & Data Results & Data Vital Signs (Past 12 Hours) Vital Signs Temp Pulse Pulse Resp BP Pulse Ox O2 Del Method 10/05/23 07:37 36.6 C 91 H 16 102/69 93 Room Air 10/05/23 03:42 36.8 C 72 16 96/64 L 97 Room Air 10/05/23 01:26 10/04/23 22:53 36.3 C L 77 19 109/73 98 Room Air 10/04/23 22:52 71 10/04/23 21:32 Room Air O2 Del Method 10/05/23 07:37 10/05/23 03:42 10/05/23 01:26 Room Air 10/04/23 22:53 10/04/23 22:52 10/04/23 21:32 Laboratory Results 10/04/23 10/04/23 10/04/23 Range/Units Unknown 23:08 14:33 WBC 4.36 L (4.8-10.8) K/ul RBC 2.07 L (4.70-6.10) M/uL Hgb 7.7 L 7.3 L (14.0-18.0) g/dl Hct 22.4 L 20.8 L* (42.0-52.0) % MCV 100.5 H (80.0-100.0) fL MCH 35.3 H (25.0-34.0) pg MCHC 35.1 (32.0-36.0) g/dL RDW Std Deviation 50.1 H (36.4-46.3) fL RDW Coeff of Arturo 13.5 (11.5-14.5) % Plt Count 151 (130-400) K/uL MPV 10.2 (9.4-12.4) fL Immature Gran % (Auto) % Neut % (Auto) % Lymph % (Auto) % [place]aston % (Auto) % Eos % (Auto) % Baso % (Auto) % Neut # (Auto) (1.40-6.50) K/uL Lymph # (Auto) (1.20-3.40) K/uL Gaston # (Auto) (0.11-0.59) K/uL Eos # (Auto) (0.00-0.50) K/uL Baso # (Auto) (0.00-0.20) K/uL Immature Gran # (Auto) (0.01-0.20) K/uL Sodium 132 L (136-145) mmol/L Potassium 3.9 D (3.5-5.1) mmol/L Chloride 111 H (98-107) mmol/L Carbon Dioxide 16 L (21-32) mmol/L Anion Gap 5 (3-11) BUN 18 (6-23) mg/dl Creatinine 1.43 H D (0.6-1.4) mg/dl Est Cr Clr Drug Dosing 54.1 ml/min Est GFR ( Amer) 64.3 ml/min Est GFR (Non-Af Amer) 55.5 ml/min BUN/Creatinine Ratio 12.6 (10-20) Glucose 99 (70-99(Fasting)) mg/dl Osmolality (280-300) mOsm/kg Calcium 7.3 L (8.6-10.3) mg/dl Magnesium (1.7-2.4) mg/dl Ferritin (8-388) ng/ml Total Bilirubin (0.2-1.0) mg/dl AST (13-39) U/L ALT (7-52) U/L Alkaline Phosphatase (34-104) U/L Total Protein (6.0-8.3) gm/dl Albumin (3.4-5.0) gm/dl Globulin (2.5-4.0) gm/dl Albumin/Globulin Ratio (0.9-2) Urine Color Yellow Urine Appearance Clear (Clear) Urine pH 6.5 (4.5-7.5) Ur Specific [place] 1.006 (1.000-1.030) Urine Protein Trace H (Negative) Urine Glucose (UA) Negative (Negative) Urine Ketones Negative (Negative) Urine Blood Negative (Negative) Urine Nitrite Negative (Negative) Urine Bilirubin Negative (Negative) Urine Urobilinogen Negative (Negative) Ur Leukocyte Esterase Negative (Negative) Urine WBC (Auto) 0-5 (0-5) /hpf Urine RBC (Auto) 3-5 H (0-2) /hpf U Hyaline Cast (Auto) 0-2 (0-2) /lpf U Epithel Cells (Auto) 0-2 (0-2) /hpf Urine Bacteria (Auto) None Seen (None Seen) Urine Osmolality 94 L (500-800) mOsm/kg Stool Occult Bld Scrn Positive A (Negative) Blood Type Blood Type Recheck Antibody Screen Crossmatch 06/27/24 06/26/24 Range/Units 08:12 22:40 WBC 4.40 L (4.8-10.8) K/ul RBC 1.91 L (4.70-6.10) M/uL Hgb 6.9 L* (14.0-18.0) g/dl Hct 19.8 L* (42.0-52.0) % MCV 103.7 H (80.0-100.0) fL MCH 36.1 H (25.0-34.0) pg MCHC 34.8 (32.0-36.0) g/dL RDW Std Deviation 47.7 H (36.4-46.3) fL RDW Coeff of Arturo 12.9 (11.5-14.5) % Plt Count 169 (130-400) K/uL MPV 10.3 (9.4-12.4) fL Immature Gran % (Auto) 0.5 % Neut % (Auto) 49.0 % Lymph % (Auto) 33.0 % Gaston % (Auto) 16.6 % Eos % (Auto) 0.7 % Baso % (Auto) 0.2 % Neut # (Auto) 2.16 (1.40-6.50) K/uL Lymph # (Auto) 1.45 (1.20-3.40) K/uL Gaston # (Auto) 0.73 H (0.11-0.59) K/uL Eos # (Auto) 0.03 (0.00-0.50) K/uL Baso # (Auto) 0.01 (0.00-0.20) K/uL Immature Gran # (Auto) 0.02 (0.01-0.20) K/uL Sodium 128 L (136-145) mmol/L Potassium 3.2 L (3.5-5.1) mmol/L Chloride 106 (98-107) mmol/L Carbon Dioxide 14 L (21-32) mmol/L Anion Gap 8 (3-11) BUN 18 (6-23) mg/dl Creatinine 1.78 H D (0.6-1.4) mg/dl Est Cr Clr Drug Dosing 43.4 ml/min Est GFR ( Amer) 49.4 ml/min Est GFR (Non-Af Amer) 42.6 ml/min BUN/Creatinine Ratio 10.1 (10-20) Glucose 99 (70-99(Fasting)) mg/dl Osmolality 266 L (280-300) mOsm/kg Calcium 6.8 L (8.6-10.3) mg/dl Magnesium 2.1 (1.7-2.4) mg/dl Ferritin 565.8 H (8-388) ng/ml Total Bilirubin 0.5 (0.2-1.0) mg/dl AST 36 (13-39) U/L ALT 18 (7-52) U/L Alkaline Phosphatase 168 H (34-104) U/L Total Protein 4.9 L (6.0-8.3) gm/dl Albumin 2.5 L (3.4-5.0) gm/dl Globulin 2.4 L (2.5-4.0) gm/dl Albumin/Globulin Ratio 1.0 (0.9-2) Urine Color Urine Appearance (Clear) Urine pH (4.5-7.5) Ur Specific [place] (1.000-1.030) Urine Protein (Negative) Urine Glucose (UA) (Negative) Urine Ketones (Negative) Urine Blood (Negative) Urine Nitrite (Negative) Urine Bilirubin (Negative) Urine Urobilinogen (Negative) Ur Leukocyte Esterase (Negative) Urine WBC (Auto) (0-5) /hpf Urine RBC (Auto) (0-2) /hpf U Hyaline Cast (Auto) (0-2) /lpf U Epithel Cells (Auto) (0-2) /hpf Urine Bacteria (Auto) (None Seen) Urine Osmolality (500-800) mOsm/kg Stool Occult Bld Scrn (Negative) Blood Type O Positive Blood Type Recheck O Positive Antibody Screen NEGATIVE Crossmatch See Detail Diagnostic Findings Abdomen/Pelvis CT 10/04/23 09:24 CT abd pelvis wo con CLINICAL HISTORY: asiya, anemia, alcohol abuse, weakness TECHNIQUE: Helical axial images of the abdomen and pelvis were obtained. Automated dose lowering techniques and/or adjustment according to patient size were utilized for this exam. This exam was performed without intravenous contrast. CT DOSE: 735.31 mGy.cm COMPARISON: Comparison is made to CT abdomen pelvis 01/11/2023 FINDINGS: Lower chest: Bibasilar atelectasis versus scarring is seen. Trace bilateral pleural effusions. Liver: Hepatic steatosis is noted. Gallbladder and biliary tree: The gallbladder wall appears thickened at 3 mm with mild pericholecystic fluid. No intra- or extrahepatic biliary ductal dilation. Pancreas: Multiloculated fluid collection about the pancreatic tail has significantly enlarged measuring 10.5 x 6.5 cm. A pancreatic body lesion measures 2.3 cm. Spleen: Unremarkable. Adrenals: Unremarkable. Kidneys and ureters: Perinephric stranding is noted bilaterally. Bladder: Unremarkable. Reproductive organs: Unremarkable. Bowel: Unremarkable. Lymph nodes Retroperitoneal: Unremarkable. Pelvic: Unremarkable. Mesenteric: Unremarkable. Peritoneum: Peritoneal fat stranding is seen about the pancreas, gallbladder, and left paracolic gutter Vessels: Atherosclerotic calcifications are seen. Abdominal wall: Unremarkable. Bones: Degenerative changes in the visualized spine. IMPRESSION: 1. Findings are suggestive of acute pancreatitis with acute peripancreatic collections. 2. Pericholecystic fluid is likely reactive, less likely to represent acute cholecystitis. 3. Hepatic steatosis. 4. Trace bilateral pleural effusions. ACT 112: Negative or not required by law. Electronically signed by: Tay Padilla M.D. 10/04/2023 11:50 AM PG Care Time/CCT Total # of Minutes Spent Total Time Spent with Patient: Total time spent is greater than 50% in coordination of care (as documented) at patient's floor/unit and/or counseling patient: Coding Level of Care Code 86241 SUB INP/OBS CARE 3/50MIN Diagnoses Anemia D64.9 Anemia type: unspecified type Acute kidney injury N17.9 Alcohol abuse F10.10 Hyponatremia E87.1 Hypokalemia E87.6 Protein calorie malnutrition E46 Hypomagnesemia E83.42 Weakness R53.1 Folate deficiency E53.8 Vitamin B12 deficiency E53.8 Iron deficiency E61.1 Hypertension I10 Depression F32.A (1) Anemia Anemia type: unspecified type Qualified Code(s): D64.9 - Anemia, unspecified
[2023-10-05 09:01] LABS: Basophils # (auto) 0.01 K/uL (0.00-0.20); Basophils % (auto) 0.2 %; Eosinophils # (auto) 0.02 K/uL (0.00-0.50); Eosinophils % (auto) 0.4 %; Hematocrit (blood only) 21.2 % (42.0-52.0); Hemoglobin 7.5 g/dl (14.0-18.0); Immature Granulocytes # (auto) 0.02 K/uL (0.01-0.20); Immature Granulocytes % (auto) 0.4 %; Lymphocytes # (auto) 0.86 K/uL (1.20-3.40); Lymphocytes % (auto) 16.8 %; Mean Corpuscular Hemoglobin 35.5 pg (25.0-34.0); Mean Corpuscular Hgb Conc 35.4 g/dL (32.0-36.0); Mean Corpuscular Volume 100.5 fL (80.0-100.0); Mean Platelet Volume 9.9 fL (9.4-12.4); Monocytes # (auto) 0.61 K/uL (0.11-0.59); Monocytes % (auto) 11.9 %; Neutrophils # (auto) 3.59 K/uL (1.40-6.50); Neutrophils % (auto) 70.3 %; Platelet Count 162 K/uL (130-400); RDW Coefficient of Variation 14.7 % (11.5-14.5); RDW Standard Deviation 54.4 fL (36.4-46.3); Red Blood Count 2.11 M/uL (4.70-6.10); White Blood Count 5.11 K/ul (4.8-10.8)
[2023-10-05 09:20] LABS: Albumin Globulin Ratio 0.8 (0.9-2); Albumin Level 2.1 gm/dl (3.4-5.0); BUN Creatinine Ratio 14.9 (10-20); Bilirubin,Total 0.8 mg/dl (0.2-1.0); Calcium 7.2 mg/dl (8.6-10.3); Creatinine Clr Calc Pharmacy 67.5 ml/min; Est GFR (African American) 84.6 ml/min; Globulin 2.5 gm/dl (2.5-4.0); Magnesium 1.6 mg/dl (1.7-2.4); Potassium 3.7 mmol/L (3.5-5.1); Total Protein 4.6 gm/dl (6.0-8.3)
[2023-10-05 09:26] LABS: INR 1.3 (0.9-1.1); Prothrombin Time 14.2 Seconds (9.0-12.0)
[2023-10-05 10:10] LABS: Polychromasia 1+; Target Cells 1+
[2023-10-05] MEDS ORDERED: SODIUM CHLORIDE 0.9% 250 ML IV PRN (10:36)
[2023-10-05] MEDS: oxyCODONE HCL IR 5 MG TAB (IMMEDIATE RELEASE) PO PRN (10:57)
[2023-10-05] MEDS: FUROSEMIDE 40 MG/4 ML VIAL IV ONE (10:57)
[2023-10-05] MEDS: POTASSIUM CHLORIDE CRTAB 20 MEQ TABCR PO STA ×2 (10:58→18:02)
[2023-10-05] MEDS: MAGNESIUM SULFATE / D5W 1 GM/100 ML BAG IV SCH (10:58)
--- NOTE | 2023-10-05 11:43 | Ultrasound Report ---
US gallbladder CLINICAL HISTORY: shoulder/back pain, eval ralph TECHNIQUE: Multiple real-time sonographic images of the right upper quadrant were obtained. Comparison: Comparison is made to CT abdomen pelvis 10/04/2023 FINDINGS: The liver is diffusely echogenic in appearance with poor ultrasound penetration, with normal contour, which is consistent with fatty infiltration. No focal mass lesions are seen. No intrahepatic duct al dilatation is seen. Low level internal echoes are identified layering dependently within the gall bladder, which is consistent with gallbladder sludge. The gallbladder wall is not thickened. There is no pericholecystic fluid present. A sonographic Love's sign was not elicited by the rail transit operator. The common duct measures 0.6 cm in diameter at the level of the hepatic artery. The visualized port ions of the pancreas appear normal. The right kidney shows normal echogenicity, cortical thickness and renal contour. The right kidney sh ows no evidence of hydronephrosis or mass. No ascites or free fluid is seen in Sargent's pouch. IMPRESSION: No acute abnormalities and in particular no evidence of acute cholecystitis. Hepatic steatosis. ACT 112: Negative or not required by law. Electronically signed by: Tay Padilla M.D. 10/05/2023 11:42 AM
[2023-10-05] MEDS: PANCREAZE (LIPASE 10,500U) CAP PO SCH (13:10)
[2023-10-05 13:37] LABS: Phosphorus 1.9 mg/dl (2.5-4.9)
[2023-10-05] MEDS ORDERED: POTASSIUM PHOS 3 MMOL/1 ML INFUSION IV STA (14:52)
[2023-10-05] MEDS: POTASSIUM PHOSPHATE 15 MMOL in SODIUM CHLORIDE 0.9% 250 ML IV ONE (15:34)
--- NOTE | 2023-10-05 16:59 | XRay Report ---
XR cervical spine 2 or 3V CLINICAL HISTORY: Neck pain. COMPARISON STUDY: Cervical spine CT January 05, 2018. FINDINGS: C7 is partially obscured. No fractures are identified within visualized portions of the cer vical spine. There is severe multilevel facet arthrosis. Disc spaces are preserved. There is mild mul tilevel endplate osteophytosis. Paravertebral soft tissues are unremarkable. IMPRESSION: 1. C7 obscured. No fractures within visualized portions of the cervical spine. 2. Mild degenerative disc disease and severe facet arthrosis within the cervical spine. ACT 112: Negative or not required by law. Electronically signed by: Jacobo Land M.D. 10/05/2023 4:57 PM
[2023-10-05 17:12] LABS: Hemoglobin 9.4 g/dl (14.0-18.0); Mean Corpuscular Hemoglobin 34.2 pg (25.0-34.0); Mean Corpuscular Hgb Conc 34.8 g/dL (32.0-36.0); Mean Corpuscular Volume 98.2 fL (80.0-100.0); Platelet Count 194 K/uL (130-400); RDW Coefficient of Variation 14.8 % (11.5-14.5); RDW Standard Deviation 52.9 fL (36.4-46.3); Red Blood Count 2.75 M/uL (4.70-6.10); White Blood Count 5.91 K/ul (4.8-10.8)
[2023-10-05 17:24] LABS: BUN Creatinine Ratio 14.8 (10-20); Calcium 7.7 mg/dl (8.6-10.3); Creatinine Clr Calc Pharmacy 71.3 ml/min; Est GFR (African American) 90.3 ml/min; Est GFR (Non-African American) 77.9 ml/min; Potassium 3.2 mmol/L (3.5-5.1)
[2023-10-05] MEDS: LORazepam 0.5 MG TAB PO STA (20:41)
--- NOTE | 2023-10-06 07:42 | Hospitalist Progress Note ---
Date of Service October 06, 2023 Assessment & Plan (1) Anemia: Plan: Anemia/protein calorie malnutrition- Hgb 7.5 on admission w/ albumin 1.9, INR 1.4. Hemoccult negative in ER but POSITIVE ON REPEAT. Iron studies w/ elevations , ?reactive from alcohol use (alcohol level 107 on admit, 2-3beers/daily reported). B12/folate without deficiency but remains on thiamine/folate supplementation given alcohol use. TSH wnl 1.7 Type/screen and consent obtained on admission, MELD score 18 Hgb 7.5 --> 6.7 on repeat but did get 2L IVF but given ASIYA and SOB/weakness ordered PRBC for transfusion CTAP obtained, CTAP noting acute pancreatitis w/ acute peripancreatic collections, hepatic steatosis, trace b/l effusions Made NPO initally, copious IVF but no epigastric pain and advanced diet as tolerated w/ pain control Lipase NOT elevated, suspect chronic/pseudocyst per GI who was consulted Per GI, given hemodynamically stable w/ brown bowel movements, plan for outpt EGD/c-scope s/p 2u PRBC (1 dose lasix) and copious IVF resuscitation Hgb improved to 9.4 last evening 10/04 but 8.5 on AM labs but again had been on IVF but had stopped and will repeat labs this afternoon/reach out to GI if continued drop Continue PPI BID Carafate added QID given suspected underlying PUD vs acute on chronic bleeding given positive testing and heavy NSAID use (3-4 200mg tablets, ~3 times daily for chronic back pain) and would continue both at dc Also added Creon for chronic pancreatitis given no epigastric pain but diarrhea w eating/malnourishment and suspected insufficency and reports improvement in appetite Electrolytes MUCH improved, Na now 137, K 3.7. CO2 up to 20 w/ oral bicarb. Phos 1.9, Kphos replacement prior ordered and normal 2.5 today. Mag 1.7 and will order 1 additional gm for today. Nutrition consulted for supplements/boost, hopefully improve albumin stores. AM cortisol NOW low at 15 INR stable 1.3, ALP remaining 150. Can check Vit D given chronic back issues --LOW. Cervical spine imaging neg for acute fx/subluxation, no trauma. Pain control/topical voltaren PT/OT evals to be obtained for completeness, see about any potential benefit from short term rehab given weakness from anemia/asiya/alcohol use. (2) Acute kidney injury: Plan: Cr 2.19 on admission w/ electrolyte disturbances/hypomag/hypokalemia likely 2nd to alchol use Banana bag in ER, additional IVF for CTAP findings but lipase not elevated and see above PRBC, IVF hydration and BUn/Cr normalized 16/0.86 Avoid NSAIDs, avoid nephrotoxins, renal dose meds as able UA did not appear infected Monitor BMP (3) Alcohol abuse: Plan: Etoh 107 on admission, 2-3beers/daily w/ heavy NSAID use s/p banana bag, continue thiamine/folic acid. B12 not deficient IVF as above, NaHCO3 PO BID as above for acidosis w/ improvement in labs to 20 today, has some lower abd cramping (no lower findings on CTAP), and will monitor AWSS protocol available if needed, has not needed but did get 0.5mg IV ativan x1 overnight for anxiety 2 days ago AVOID NSAIDS, creon added (lipase low, susp pancreatic insufficiency) Na improved to 137, seizure precautions in place as was 126 on admission (urine Na 98, beer potomania) Alcohol cessation recommended Seizure precautions in place NO EVIDENCE FOR DT at present, continued telemetry monitoring as will be ~48 hours today. BP 105/71, HR 90s, 100% on RA (4) Hyponatremia: Plan: Down to 126 on admit, urine Na 98. Beer drinker/alcohol use as above IVF/free water restriction, NaHCO3 tablets for acidosis which has improved, renal function back to baseline Na 137 today and will monitor l/day (5) Hypokalemia: Plan: resolved, suspected 2nd to lasix use w/ blood monitor (6) Protein calorie malnutrition: Plan: nutrition/supplements to be provided (7) Hypomagnesemia: Plan: normal on repeat but low normal 1.7 and additional 1gm ordered and will monitor (8) Weakness: Plan: improving but still present, has been ambulating in the room which he wasn't able to do the day prior. no focal deficit/slurred speech/facial droop PT/OT evals ordered and patient would be agreeable to rehab at [place] pending evals per discussion 10/05 (9) Folate deficiency: Plan: continue supp for etoh, level not low on check but remains on supp (10) Vitamin B12 deficiency: Plan: hx, not low on check (11) Iron deficiency: Plan: iron studies NOT deficient, ferritin actually elevated and suspect 2nd to alc ohol use/elevation on admission DOES NEED EGD/C-SCOPE IN OUTPT f/u unless acute bleeding witnessed to prompt inpatient eval again denies blood in stool but did have POSITIVE fecal occult testing but moving bowels/brown in color reported. Monitor hgb as above (12) Hypertension: Plan: hx of such, NOT on meds. BP borderline low but not lightheaded/dizzy and fall precautions in place and orthostatics do not appear positive Monitor (13) Depression: Plan: Anxiety and depression- Continue buspirone, fluoxetine trazodone not continued for now, ativan available w/ AWSS as above. (14) Neurogenic claudication due to lumbar spinal stenosis: Plan: chronic back pain, cause for him taking NSAIDs as above discontinued further NSAIDs, fecal occult testing negative Oxycodone 5mg, topical voltaren ordered for neck/back pain PT/OT evals as above Plan continued inpatient stay therapy evals pending, possible rehab at dc Admission and Anticipated Discharge Date Admission Date: October 04, 2023 Supervising Physician Co-Signing Physician Notes The patient was not seen by me. The chart was reviewed. Case discussed with SEVEN Robert. Agree with assessment and plan Subjective Eval this morning, resting in bed. Feeling a little better than yesterday, ambulating in the room. Fatgiued appearing but reports improvement in appetite. No chest pain/trouble breathing. Some lower abdominal discomfort/cramping and reports feels like muscle strain. Neck/shoulder pain controlled w/ topical voltaren and discussed can use topical at dc over the oral given anemia while awaiting outpt GI endoscopy work up. Hgb stable but off IVF and repeat for this afternoon to ensure remaining stable. Afebrile. Discussed electrolytes improving, therapy evals placed. He would be agreeable to some inpatient rehab at discharge if recommended. CM to follow. Questions/concerns addressed at this time. Physical Exam Physical Exam: General: 52 yo male laying in hospital bed, general pallor improved but present, fatigued appearing but does apear improved, NAD Head atraumatic, normocephalic, +cervical tenderness but no weakness UE (improved since voltaren gel per patient), mm improved, trachea midline, pupils equal Resp; even/unlabored, slightly diminished int he bases but no obvious w/c/r, on room air 100% CV: RRR, faint systolic murmur, no pitting edema/calf tenderness GI: +BS, slight distension, suprapubic discomfort (reporting muscle strain), no guarding/rigidity no kramer MSK/Neuro: chronic lumbar spine issues but dorsiflexion/plantarflexion intact, pulses palpable, UE strength testing wnl Psych; AOx3 cooperative with exam Results & Data Results & Data Vital Signs (Past 12 Hours) Vital Signs Temp Pulse Pulse Resp BP Pulse Ox O2 Del Method 10/06/23 03:16 36.6 C 82 18 101/68 97 Room Air 10/06/23 01:00 10/05/23 23:19 78 10/05/23 22:53 36.7 C 80 19 106/74 98 Room Air O2 Del Method 10/06/23 03:16 10/06/23 01:00 Room Air 10/05/23 23:19 10/05/23 22:53 Laboratory Results 10/06/23 10/05/23 10/05/23 Range/Units 07:14 16:53 08:44 WBC 6.22 5.91 (4.8-10.8) K/ul RBC 2.45 L 2.75 L (4.70-6.10) M/uL Hgb 8.5 L 9.4 L (14.0-18.0) g/dl Hct 24.0 L 27.0 L (42.0-52.0) % MCV 98.0 98.2 (80.0-100.0) fL MCH 34.7 H 34.2 H (25.0-34.0) pg MCHC 35.4 34.8 (32.0-36.0) g/dL RDW Std Deviation 55.9 H 52.9 H (36.4-46.3) fL RDW Coeff of Arturo 15.6 H 14.8 H (11.5-14.5) % Plt Count 175 194 (130-400) K/uL MPV 10.0 10.0 (9.4-12.4) fL Immature Gran % (Auto) 0.3 % Neut % (Auto) 68.3 % Lymph % (Auto) 22.2 % [place] % (Auto) 8.5 % Eos % (Auto) 0.5 % Baso % (Auto) 0.2 % Neut # (Auto) 4.25 (1.40-6.50) K/uL Lymph # (Auto) 1.38 (1.20-3.40) K/uL [place] # (Auto) 0.53 (0.11-0.59) K/uL Eos # (Auto) 0.03 (0.00-0.50) K/uL Baso # (Auto) 0.01 (0.00-0.20) K/uL Immature Gran # (Auto) 0.02 (0.01-0.20) K/uL PT 14.1 H (9.0-12.0) Seconds INR 1.3 H (0.9-1.1) Sodium 137 132 L (136-145) mmol/L Potassium 3.7 3.2 L (3.5-5.1) mmol/L Chloride 112 H 108 H (98-107) mmol/L Carbon Dioxide 20 L 19 L (21-32) mmol/L Anion Gap 5 5 (3-11) BUN 16 16 (6-23) mg/dl Creatinine 0.86 1.08 (0.6-1.4) mg/dl Est Cr Clr Drug Dosing 89.9 71.3 ml/min Est GFR ( Amer) 114.7 90.3 ml/min Est GFR (Non-Af Amer) 99.0 77.9 ml/min BUN/Creatinine Ratio 18.6 14.8 (10-20) Glucose 99 113 H (70-99(Fasting)) mg/dl Calcium 7.4 L 7.7 L (8.6-10.3) mg/dl Ionized Calcium 1.19 (1.12-1.32) mmol/L Phosphorus 2.5 1.9 L (2.5-4.9) mg/dl Magnesium 1.7 2.0 (1.7-2.4) mg/dl Total Bilirubin 0.9 (0.2-1.0) mg/dl AST 21 (13-39) U/L ALT 15 (7-52) U/L Alkaline Phosphatase 150 H (34-104) U/L Total Protein 4.7 L (6.0-8.3) gm/dl Albumin 2.2 L (3.4-5.0) gm/dl Globulin 2.5 (2.5-4.0) gm/dl Albumin/Globulin Ratio 0.9 (0.9-2) 25-OH Vitamin D Total 19.8 L (30-100) ng/ml Procalcitonin 0.12 (0-0.5) ng/ml Cortisol AM Sample 15.16 (6.2-22.6) mcg/dl Lyme Disease Screen Negative (Negative) Hepatitis A IgM Ab Pending Hep Bs Antigen Negative (Negative) Hep B Core IgM Ab Pending Hepatitis C Antibody Negative (Negative) HIV-1 RNA copies/mL Pending HIV-1 RNA logcopies/mL Pending Blood Type Antibody Screen Crossmatch 10/03/23 Range/Units 22:40 WBC (4.8-10.8) K/ul RBC (4.70-6.10) M/uL Hgb (14.0-18.0) g/dl Hct (42.0-52.0) % MCV (80.0-100.0) fL MCH (25.0-34.0) pg MCHC (32.0-36.0) g/dL RDW Std Deviation (36.4-46.3) fL RDW Coeff of Arturo (11.5-14.5) % Plt Count (130-400) K/uL MPV (9.4-12.4) fL Immature Gran % (Auto) % Neut % (Auto) % Lymph % (Auto) % [place] % (Auto) % Eos % (Auto) % Baso % (Auto) % Neut # (Auto) (1.40-6.50) K/uL Lymph # (Auto) (1.20-3.40) K/uL [place] # (Auto) (0.11-0.59) K/uL Eos # (Auto) (0.00-0.50) K/uL Baso # (Auto) (0.00-0.20) K/uL Immature Gran # (Auto) (0.01-0.20) K/uL PT (9.0-12.0) Seconds INR (0.9-1.1) Sodium (136-145) mmol/L Potassium (3.5-5.1) mmol/L Chloride (98-107) mmol/L Carbon Dioxide (21-32) mmol/L Anion Gap (3-11) BUN (6-23) mg/dl Creatinine (0.6-1.4) mg/dl Est Cr Clr Drug Dosing ml/min Est GFR ( Amer) ml/min Est GFR (Non-Af Amer) ml/min BUN/Creatinine Ratio (10-20) Glucose (70-99(Fasting)) mg/dl Calcium (8.6-10.3) mg/dl Ionized Calcium (1.12-1.32) mmol/L Phosphorus (2.5-4.9) mg/dl Magnesium (1.7-2.4) mg/dl Total Bilirubin (0.2-1.0) mg/dl AST (13-39) U/L ALT (7-52) U/L Alkaline Phosphatase (34-104) U/L Total Protein (6.0-8.3) gm/dl Albumin (3.4-5.0) gm/dl Globulin (2.5-4.0) gm/dl Albumin/Globulin Ratio (0.9-2) 25-OH Vitamin D Total (30-100) ng/ml Procalcitonin (0-0.5) ng/ml Cortisol AM Sample (6.2-22.6) mcg/dl Lyme Disease Screen (Negative) Hepatitis A IgM Ab Hep Bs Antigen (Negative) Hep B Core IgM Ab Hepatitis C Antibody (Negative) HIV-1 RNA copies/mL HIV-1 RNA logcopies/mL Blood Type O Positive Antibody Screen NEGATIVE Crossmatch See Detail Diagnostic Findings Cervical Spine X-Ray 10/05/23 12:37 XR cervical spine 2 or 3V CLINICAL HISTORY: Neck pain. COMPARISON STUDY: Cervical spine CT January 05, 2018. FINDINGS: C7 is partially obscured. No fractures are identified within visualized portions of the cervical spine. There is severe multilevel facet arthrosis. Disc spaces are preserved. There is mild multilevel endplate osteophytosis. Paravertebral soft tissues are unremarkable. IMPRESSION: 1. C7 obscured. No fractures within visualized portions of the cervical spine. 2. Mild degenerative disc disease and severe facet arthrosis within the cervical spine. ACT 112: Negative or not required by law. Electronically signed by: Jacobo Land M.D. 10/05/2023 4:57 PM PG Care Time/CCT Total # of Minutes Spent Total Time Spent with Patient: Total time spent is greater than 50% in coordination of care (as documented) at patient's floor/unit and/or counseling patient: Coding Level of Care Code 47206 SUB INP/OBS CARE 3/50MIN Diagnoses Anemia D64.9 Anemia type: unspecified type Acute kidney injury N17.9 Alcohol abuse F10.10 Hyponatremia E87.1 Hypokalemia E87.6 Protein calorie malnutrition E46 Hypomagnesemia E83.42 Weakness R53.1 Folate deficiency E53.8 Vitamin B12 deficiency E53.8 Iron deficiency E61.1 Hypertension I10 Depression F32.A Neurogenic claudication due to lumbar spinal stenosis M48.062 (1) Anemia Anemia type: unspecified type Qualified Code(s): D64.9 - Anemia, unspecified
[2023-10-06 07:47] LABS: Basophils # (auto) 0.01 K/uL (0.00-0.20); Basophils % (auto) 0.2 %; Eosinophils # (auto) 0.03 K/uL (0.00-0.50); Eosinophils % (auto) 0.5 %; Hemoglobin 8.5 g/dl (14.0-18.0); Immature Granulocytes # (auto) 0.02 K/uL (0.01-0.20); Immature Granulocytes % (auto) 0.3 %; Lymphocytes # (auto) 1.38 K/uL (1.20-3.40); Lymphocytes % (auto) 22.2 %; Mean Corpuscular Hemoglobin 34.7 pg (25.0-34.0); Mean Corpuscular Hgb Conc 35.4 g/dL (32.0-36.0); Monocytes # (auto) 0.53 K/uL (0.11-0.59); Monocytes % (auto) 8.5 %; Neutrophils # (auto) 4.25 K/uL (1.40-6.50); Neutrophils % (auto) 68.3 %; Platelet Count 175 K/uL (130-400); RDW Coefficient of Variation 15.6 % (11.5-14.5); RDW Standard Deviation 55.9 fL (36.4-46.3); Red Blood Count 2.45 M/uL (4.70-6.10); White Blood Count 6.22 K/ul (4.8-10.8)
[2023-10-06 08:02] LABS: Albumin Globulin Ratio 0.9 (0.9-2); Albumin Level 2.2 gm/dl (3.4-5.0); BUN Creatinine Ratio 18.6 (10-20); Bilirubin,Total 0.9 mg/dl (0.2-1.0); Calcium 7.4 mg/dl (8.6-10.3); Creatinine Clr Calc Pharmacy 89.9 ml/min; Est GFR (African American) 114.7 ml/min; Globulin 2.5 gm/dl (2.5-4.0); Magnesium 1.7 mg/dl (1.7-2.4); Phosphorus 2.5 mg/dl (2.5-4.9); Potassium 3.7 mmol/L (3.5-5.1); Total Protein 4.7 gm/dl (6.0-8.3)
[2023-10-06 08:15] LABS: INR 1.3 (0.9-1.1); Prothrombin Time 14.1 Seconds (9.0-12.0)
[2023-10-06] MEDS: DICLOFENAC SOD 1% GEL 100 GM TUBE EXT SCH (09:14)
[2023-10-06 10:44] LABS: HepB Surface Ag with confirm Negative (Negative)
[2023-10-06 10:49] LABS: HepC Ab Rflx HepCQuant RNA Negative (Negative)
[2023-10-06] MEDS: CHOLECALCIFEROL 125 MCG (5,000 UNITS) TAB PO SCH (11:52)
[2023-10-06] MEDS: MAGNESIUM SULFATE / D5W 1 GM/100 ML BAG IV ONE (12:21)
[2023-10-06 14:25] LABS: Hematocrit (blood only) 23.4 % (42.0-52.0); Hemoglobin 8.2 g/dl (14.0-18.0)
[2023-10-06] MEDS: LORazepam 0.5 MG TAB PO PRN (17:52)
[2023-10-07 06:28] LABS: Hematocrit (blood only) 22.7 % (42.0-52.0); Mean Corpuscular Hemoglobin 34.8 pg (25.0-34.0); Mean Corpuscular Hgb Conc 35.2 g/dL (32.0-36.0); Mean Corpuscular Volume 98.7 fL (80.0-100.0); Mean Platelet Volume 10.1 fL (9.4-12.4); Platelet Count 176 K/uL (130-400); RDW Coefficient of Variation 15.4 % (11.5-14.5); RDW Standard Deviation 55.4 fL (36.4-46.3); White Blood Count 6.63 K/ul (4.8-10.8)
[2023-10-07 06:59] LABS: INR 1.3 (0.9-1.1)
[2023-10-07 07:03] LABS: Anion Gap 3 (3-11); BUN Creatinine Ratio 21.1 (10-20); Blood Urea Nitrogen 15 mg/dl (6-23); Calcium 7.5 mg/dl (8.6-10.3); Carbon Dioxide 21 mmol/L (21-32); Chloride 113 mmol/L (98-107); Creatinine Clr Calc Pharmacy 106.5 ml/min; Est GFR (African American) 124.2 ml/min; Est GFR (Non-African American) 107.1 ml/min; Glucose 101 mg/dl (70-99(Fasting)); Potassium 3.9 mmol/L (3.5-5.1); Sodium 137 mmol/L (136-145)
[2023-10-07 07:21] LABS: Ferritin 519.9 ng/ml (8-388)
--- NOTE | 2023-10-07 07:43 | Hospitalist Progress Note ---
Date of Service October 07, 2023 Assessment & Plan (1) Anemia: Plan: Anemia/protein calorie malnutrition- Hgb 7.5 on admission w/ albumin 1.9, INR 1.4. Hemoccult negative in ER but POSITIVE ON REPEAT. Iron studies w/ elevations , ?reactive from alcohol use (alcohol level 107 on admit, 2-3beers/daily reported). B12/folate without deficiency but remains on thiamine/folate supplementation given alcohol use. TSH wnl 1.7 Type/screen and consent obtained on admission, MELD score 18 Hgb 7.5 --> 6.7 on repeat but did get 2L IVF but given ASIYA and SOB/weakness ordered PRBC for transfusion CTAP obtained, CTAP noting acute pancreatitis w/ acute peripancreatic collections, hepatic steatosis, trace b/l effusions Made NPO initally, copious IVF but no epigastric pain and advanced diet as tolerated w/ pain control Lipase NOT elevated, suspect chronic/pseudocyst per GI who was consulted Per GI, given hemodynamically stable w/ brown bowel movements, plan for outpt EGD/c-scope s/p 2u PRBC, IVF for ASIYA on admit Hgb to 9.4 (but was h/h) but 8.5 on repeat and down to 8.0 off IVF and asked GI to re-eval and recs for clear liquid diet and [facility] re-eval in AM but no acute bleeding obs and continued PPI BID, carafate for now. Creon continued for pancreatic insufficiency Cortisol level NOT low Acidosis resolved on AM labs, stopped oral bicarb Mag 1.4, IV replacement. Phos 1.8, Kphos replacement ordered. Nutrition consulted PT/OT consulted and evals not yet in but patient reports recs for rehab and agreeable. Notified CM Monitor labs/exam in AM (2) Acute kidney injury: Plan: Cr 2.19 on admission w/ electrolyte disturbances/hypomag/hypokalemia likely 2nd to alchol use Banana bag in ER, additional IVF for CTAP findings but lipase not elevated and see above PRBC, IVF hydration and BUn/Cr normalized 16/0.86 and IVF discontinued Avoid NSAIDs (did order topical voltaren gel for shoulders, changed to prn and could hold), avoid nephrotoxins, renal dose meds as able UA did not appear infected Monitor BMP (3) Alcohol abuse: Plan: Etoh 107 on admission, 2-3beers/daily w/ heavy NSAID use s/p banana bag, continue thiamine/folic acid. B12 not deficient IVF, NaHCO3 PO ordered, CO normalized Na stable 137 (126 on admit, seizure precautions in place) Telemetry monitoring, AWSS, no evidence for DTs but did order 0.5mg pO ativan for anxiety daily. remains on buspar. No SI/HI (4) Hyponatremia: Plan: Down to 126 on admit, urine Na 98. Beer drinker/alcohol use as above IVF/free water restriction, NaHCO3 tablets for acidosis which has improved, renal function back to baseline and tx as above Na remaining stable (5) Hypokalemia: Plan: resolved, suspected 2nd to lasix use w/ blood monitor (6) Protein calorie malnutrition: Plan: nutrition/supplements to be provided (7) Hypomagnesemia: Plan: again low and replacement ordered ?2nd to PPI use vs alcohol. Monitor while on BID dosing. No diarrhea but if occurs could check cdiff (8) Weakness: Plan: improving but still present, has been ambulating in the room which he wasn't able to do the day prior. no focal deficit/slurred speech/facial droop PT/OT evals ordered and patient would be agreeable to rehab at [place] pending evals per discussion 10/05, 10/06. CM notified (9) Folate deficiency: Plan: continue supp for etoh, level not low on check but remains on supp (10) Vitamin B12 deficiency: Plan: hx, not low on check (11) Iron deficiency: Plan: iron studies NOT deficient, ferritin actually elevated and suspect 2nd to alcohol use/elevation on admission DOES NEED EGD/C-SCOPE IN OUTPT f/u unless acute bleeding witnessed to prompt inpatient eval again denies blood in stool but did have POSITIVE fecal occult testing but moving bowels/brown in color reported. Monitor hgb as above (12) Hypertension: Plan: hx of such, NOT on meds. BP borderline low but not lightheaded/dizzy and fall precautions in place and orthostatics do not appear positive Monitor (13) Depression: Plan: Anxiety and depression- Continue buspirone, fluoxetine trazodone not continued for now, ativan available w/ AWSS as above. (14) Neurogenic claudication due to lumbar spinal stenosis: Plan: chronic back pain, cause for him taking NSAIDs as above discontinued further NSAIDs, fecal occult testing negative Oxycodone 5mg, topical voltaren ordered for neck/back pain but changed to prn given risk for bleeding but no acute bleeding noted PT/OT evals as above (15) Vitamin D deficiency: Plan: checked given baseline nutritional status -- LOW 19.8, replacement ordered. carmen uld continue at dc Plan continued inpatient stay, monitor blood counts. [facility] gi to see in AM Therapy evals pending but per patient recs for rehab. Await official eval but CM notified for want for rehab given weakness from above Admission and Anticipated Discharge Date Admission Date: October 04, 2023 Supervising Physician Co-Signing Physician Notes The patient was not seen by me. The chart was reviewed. Case discussed with SEVEN Robert. Agree with assessment and plan Subjective Eval this morning, resting in bed. No evidence for DTs. Hgb level 8.0, seen by GI, no acitve bleeding/discomfort and rec for clear diet and will have eval in AM but likely outpt endoscopy. No chest pain/shortness of breath, feels a little better today. Seen by therapy this morning per patient and recs for rehab, agreeable, will touch base w/ CM about refs. Shoulder/back pains controlled w/ ordered meds and will continue oxy but limit topical voltaren per GI recs as theoretically can increase bleeding and will monitor. Questions/concerns addressed at this time. Physical Exam Physical Exam: General: 52 yo male laying in hospital bed, general pallor improved but present, fatigued appearing but does appear improved and reports feeling a little better, NAD, seizure pads in place Head atraumatic, normocephalic, +cervical tenderness but no weakness UE (improved since voltaren gel per patient), mm improved, trachea midline, pupils equal Resp; even/unlabored, slightly diminished int he bases but no obvious w/c/r, on room air 100% CV: RRR, faint systolic murmur, no pitting edema/calf tenderness (RN to apply SCDs) GI: +BS, soft/slight distension, no overt tenderness/guarding/rigidity no kramer MSK/Neuro: chronic lumbar spine issues but dorsiflexion/plantarflexion intact, pulses palpable, UE strength testing wnl Psych; AOx3 cooperative with exam but flat affect Results & Data Results & Data Vital Signs (Past 12 Hours) Vital Signs Temp Pulse Pulse Pulse Resp BP BP 10/07/23 07:06 36.7 C 86 86 16 104/73 10/07/23 03:46 36.8 C 81 16 106/72 10/07/23 01:00 10/06/23 22:49 36.6 C 85 18 107/76 10/06/23 22:47 84 10/06/23 21:18 Pulse Ox O2 Del Method O2 Del Method 10/07/23 07:06 97 Room Air 10/07/23 03:46 98 Room Air 10/07/23 01:00 Room Air 10/06/23 22:49 95 Room Air 10/06/23 22:47 10/06/23 21:18 Room Air Laboratory Results 10/07/23 10/06/23 Range/Units 05:51 14:07 WBC 6.63 (4.8-10.8) K/ul RBC 2.30 L (4.70-6.10) M/uL Hgb 8.0 L 8.2 L (14.0-18.0) g/dl Hct 22.7 L 23.4 L (42.0-52.0) % MCV 98.7 (80.0-100.0) fL MCH 34.8 H (25.0-34.0) pg MCHC 35.2 (32.0-36.0) g/dL RDW Std Deviation 55.4 H (36.4-46.3) fL RDW Coeff of Arturo 15.4 H (11.5-14.5) % Plt Count 176 (130-400) K/uL MPV 10.1 (9.4-12.4) fL PT 14.0 H (9.0-12.0) Seconds INR 1.3 H (0.9-1.1) Sodium 137 (136-145) mmol/L Potassium 3.9 (3.5-5.1) mmol/L Chloride 113 H (98-107) mmol/L Carbon Dioxide 21 (21-32) mmol/L Anion Gap 3 (3-11) BUN 15 (6-23) mg/dl Creatinine 0.71 (0.6-1.4) mg/dl Est Cr Clr Drug Dosing 106.5 ml/min Est GFR ( Amer) 124.2 ml/min Est GFR (Non-Af Amer) 107.1 ml/min BUN/Creatinine Ratio 21.1 H (10-20) Glucose 101 H (70-99(Fasting)) mg/dl Calcium 7.5 L (8.6-10.3) mg/dl Phosphorus 1.8 L (2.5-4.9) mg/dl Magnesium 1.4 L (1.7-2.4) mg/dl Iron 45 (35-175) mcg/dl TIBC TNP Unsaturated IBC < 55 L (155-355) mcg/dl Transferrin % Sat TNP Ferritin 519.9 H (8-388) ng/ml Total Bilirubin 0.9 (0.2-1.0) mg/dl AST 20 (13-39) U/L ALT 15 (7-52) U/L Alkaline Phosphatase 133 H (34-104) U/L Total Protein 4.5 L (6.0-8.3) gm/dl Albumin 2.0 L (3.4-5.0) gm/dl Globulin 2.5 (2.5-4.0) gm/dl Albumin/Globulin Ratio 0.8 L (0.9-2) PG Care Time/CCT Total # of Minutes Spent Total Time Spent with Patient: Total time spent is greater than 50% in coordination of care (as documented) at patient's floor/unit and/or counseling patient: Coding Level of Care Code 63431 SUB INP/OBS CARE 3/50MIN Diagnoses Anemia D64.9 Anemia type: unspecified type Acute kidney injury N17.9 Alcohol abuse F10.10 Hyponatremia E87.1 Hypokalemia E87.6 Protein calorie malnutrition E46 Hypomagnesemia E83.42 Weakness R53.1 Folate deficiency E53.8 Vitamin B12 deficiency E53.8 Iron deficiency E61.1 Hypertension I10 Depression F32.A Neurogenic claudication due to lumbar spinal stenosis M48.062 Vitamin D deficiency E55.9 (1) Anemia Anemia type: unspecified type Qualified Code(s): D64.9 - Anemia, unspecified
[2023-10-07 07:44] LABS: Alanine Aminotransferase 15 U/L (7-52); Albumin Globulin Ratio 0.8 (0.9-2); Alkaline Phosphatase 133 U/L (34-104); Aspartate Aminotransferase 20 U/L (13-39); Bilirubin,Total 0.9 mg/dl (0.2-1.0); Globulin 2.5 gm/dl (2.5-4.0); Iron 45 mcg/dl (35-175); Magnesium 1.4 mg/dl (1.7-2.4); Phosphorus 1.8 mg/dl (2.5-4.9); Total Protein 4.5 gm/dl (6.0-8.3); Unsaturated Iron Binding Cap < 55 mcg/dl (155-355)
[2023-10-07] MEDS ORDERED: POTASSIUM PHOS 3 MMOL/1 ML INFUSION IV STA (08:37)
--- NOTE | 2023-10-07 09:08 | Gastroenterology Progress Note ---
Date of Service October 07, 2023 Assessment & Plan (1) Anemia: Plan: Acute GI bleeding is not diagnosed by stool hemoccults. GI bleeding is diagnosed by physically seeing blood either through hematemesis, melena or hematochezia and he has none of these. As mentioned before I suspect his anemia is multifactorial related to vitamin deficiencies, alchohol abuse and perhaps chronic GI blood loss although he doesn't have iron deficiency anemia. I agree he does need evaluation and it could still be done electively as an outpatient. It certainly does not need to be done emergently on the weekend. I will let his primary GI team decide tomorrow if they want to do evaluation as an inpatient. Also, please note that topical voltaren carries the same ulcer risk as oral voltaren does, through its affects on prostaglandin synthesis. Admission and Anticipated Discharge Date Admission Date: October 04, 2023 Subjective Asked to come back to see Mr. Smith because on October 03 his second stool hemoccult was positive. Hemoglobin has been drifting down towards admit hemoglobin level over the last few days. Mr. Smith denies any GI complaints now. He tells me he is having brown stools and does not see black stools or red or maroon stools. Recommendation by [facility] a few days ago was for outpatient workup. Physical Exam Constitutional: WD/WN, vitals as above Respiratory: normal respiratory effort, lungs clear to auscultation Cardiovascular: RRR, no murmur, no edema Gastrointestinal (Abdomen): normal bowel sounds, soft, nontender, no hepatosplenomegaly Results & Data Vital Signs (Past 12 Hours) Vital Signs Temp Pulse Pulse Pulse Resp BP BP 10/07/23 07:39 80 10/07/23 07:39 10/07/23 07:06 36.7 C 86 86 16 104/73 10/07/23 03:46 36.8 C 81 16 106/72 10/07/23 01:00 10/06/23 22:49 36.6 C 85 18 107/76 10/06/23 22:47 84 10/06/23 21:18 Pulse Ox O2 Del Method O2 Del Method 10/07/23 07:39 10/07/23 07:39 Room Air 10/07/23 07:06 97 Room Air 10/07/23 03:46 98 Room Air 10/07/23 01:00 Room Air 10/06/23 22:49 95 Room Air 10/06/23 22:47 10/06/23 21:18 Room Air Laboratory Results 10/07/23 10/06/23 10/06/23 Range/Units 05:51 14:07 07:14 WBC 6.63 (4.8-10.8) K/ul RBC 2.30 L (4.70-6.10) M/uL Hgb 8.0 L 8.2 L (14.0-18.0) g/dl Hct 22.7 L 23.4 L (42.0-52.0) % MCV 98.7 (80.0-100.0) fL MCH 34.8 H (25.0-34.0) pg MCHC 35.2 (32.0-36.0) g/dL RDW Std Deviation 55.4 H (36.4-46.3) fL RDW Coeff of Arturo 15.4 H (11.5-14.5) % Plt Count 176 (130-400) K/uL MPV 10.1 (9.4-12.4) fL PT 14.0 H (9.0-12.0) Seconds INR 1.3 H (0.9-1.1) Sodium 137 (136-145) mmol/L Potassium 3.9 (3.5-5.1) mmol/L Chloride 113 H (98-107) mmol/L Carbon Dioxide 21 (21-32) mmol/L Anion Gap 3 (3-11) BUN 15 (6-23) mg/dl Creatinine 0.71 (0.6-1.4) mg/dl Est Cr Clr Drug Dosing 106.5 ml/min Est GFR ( Amer) 124.2 ml/min Est GFR (Non-Af Amer) 107.1 ml/min BUN/Creatinine Ratio 21.1 H (10-20) Glucose 101 H (70-99(Fasting)) mg/dl Calcium 7.5 L (8.6-10.3) mg/dl Phosphorus 1.8 L (2.5-4.9) mg/dl Magnesium 1.4 L (1.7-2.4) mg/dl Iron 45 (35-175) mcg/dl TIBC TNP Unsaturated IBC < 55 L (155-355) mcg/dl Transferrin % Sat TNP Ferritin 519.9 H (8-388) ng/ml Total Bilirubin 0.9 (0.2-1.0) mg/dl AST 20 (13-39) U/L ALT 15 (7-52) U/L Alkaline Phosphatase 133 H (34-104) U/L Total Protein 4.5 L (6.0-8.3) gm/dl Albumin 2.0 L (3.4-5.0) gm/dl Globulin 2.5 (2.5-4.0) gm/dl Albumin/Globulin Ratio 0.8 L (0.9-2) 25-OH Vitamin D Total 19.8 L (30-100) ng/ml Lyme Disease Screen Negative (Negative) Hep Bs Antigen Negative (Negative) Hepatitis C Antibody Negative (Negative) (1) Anemia Anemia type: unspecified type Qualified Code(s): D64.9 - Anemia, unspecified
[2023-10-07] MEDS: MAGNESIUM SULFATE / D5W 1 GM/100 ML BAG IV SCH (09:21)
[2023-10-07] MEDS: POTASSIUM PHOSPHATE 15 MMOL in SODIUM CHLORIDE 0.9% 250 ML IV ONE (09:21)
[2023-10-07] MEDS ORDERED: DICLOFENAC SOD 1% GEL 100 GM TUBE EXT PRN ×2 (10:56→14:16)
[2023-10-08 07:12] LABS: Hematocrit (blood only) 25.5 % (42.0-52.0); Hemoglobin 8.9 g/dl (14.0-18.0); Mean Corpuscular Hemoglobin 34.5 pg (25.0-34.0); Mean Corpuscular Hgb Conc 34.9 g/dL (32.0-36.0); Mean Corpuscular Volume 98.8 fL (80.0-100.0); Mean Platelet Volume 10.2 fL (9.4-12.4); Platelet Count 175 K/uL (130-400); RDW Coefficient of Variation 15.3 % (11.5-14.5); RDW Standard Deviation 55.3 fL (36.4-46.3); Red Blood Count 2.58 M/uL (4.70-6.10); White Blood Count 7.85 K/ul (4.8-10.8)
--- NOTE | 2023-10-08 07:26 | Hospitalist Progress Note ---
Date of Service October 08, 2023 Assessment & Plan (1) Anemia: Plan: Anemia/protein calorie malnutrition- Hgb 7.5 on admission w/ albumin 1.9, INR 1.4. Hemoccult negative in ER but POSITIVE ON REPEAT. Iron studies w/ elevations , ?reactive from alcohol use (alcohol level 107 on admit, 2-3beers/daily reported). B12/folate without deficiency but remains on thiamine/folate supplementation given alcohol use. TSH wnl 1.7 Type/screen and consent obtained on admission, MELD score 18 Hgb 7.5 --> 6.7 on repeat but did get 2L IVF but given ASIYA and SOB/weakness ordered PRBC for transfusion CTAP obtained, CTAP noting acute pancreatitis w/ acute peripancreatic collections, hepatic steatosis, trace b/l effusions -Made NPO initially, copious IVF but no epigastric pain and advanced diet as tolerated w/ pain control Lipase NOT elevated, suspect chronic/pseudocyst per GI who was consulted Per GI, given hemodynamically stable w/ brown bowel movements, plan for outpt EGD/c-scope s/p 2u PRBC, IVF for ASIYA on admit Hgb to 9.4 (but was h/h) but 8.5 on repeat and down to 8.0 off IVF and asked GI to re-eval and recs for clear liquid diet and [facility] re-eval in AM but no acute bleeding obs and continued PPI BID, carafate for now. Creon continued for pancreatic insufficiency Cortisol level NOT low Acidosis resolved on AM lab 10/06, stopped oral bicarb. Mag IV replacement ordered along with K phos for phos 1.8 and nutrition consulted 10/07 Continues on Protonix BID, Carafate QID. Hgb improved to 8.9 today. INR 1.3 prior and stable. Clear liquid diet --> Low fat. -Continue added Creon for pancreatic insufficiency/chronic pancreatitis/pseudocyst on CTAP Topical voltaren had been changed to prn, has not utilized any further. Pain controlled w/ oxycodone 5mg prn and will discontinue further prn as controlled and hasn't used the prn given bleeding risk Chemistries pending, electrolyte replacement to be ordered pending review of labs PT/OT consulted and evals not yet in but patient reports recs for rehab and agreeable. Notified CM Can likely dc to rehab once bed available, will need outpt EGD/c-scope (2) Acute kidney injury: Plan: Cr 2.19 on admission w/ electrolyte disturbances/hypomag/hypokalemia likely 2nd to alchol use Banana bag in ER, additional IVF for CTAP findings but lipase not elevated and see above PRBC, IVF hydration and BUn/Cr normalized 16/0.86 and IVF discontinued Avoid NSAIDs (did order topical voltaren gel for shoulders, changed to prn and could hold), avoid nephrotoxins, renal dose meds as able UA did not appear infected Monitor BMP (3) Alcohol abuse: Plan: Etoh 107 on admission, 2-3beers/daily w/ heavy NSAID use s/p banana bag, continue thiamine/folic acid. B12 not deficient IVF, NaHCO3 PO ordered, CO normalized Na stable 137 (126 on admit, seizure precautions in place) Telemetry monitoring, AWSS, no evidence for DTs but did order 0.5mg pO ativan for anxiety daily. remains on buspar. No SI/HI (4) Hyponatremia: Plan: Down to 126 on admit, urine Na 98. Beer drinker/alcohol use as above IVF/free water restriction, NaHCO3 tablets for acidosis which has improved and have been discontinued, renal function back to baseline and tx as above Na remaining stable, removed fluid restriction/diet advanced (5) Hypokalemia: Plan: resolved, suspected 2nd to lasix use w/ blood monitor (6) Protein calorie malnutrition: Plan: nutrition/supplements to be provided (7) Hypomagnesemia: Plan: again low and replacement ordered ?2nd to PPI use vs alcohol. Monitor while on BID dosing. No diarrhea but if occurs could check cdiff (8) Weakness: Plan: improving but still present, has been ambulating in the room which he wasn't able to do the day prior. no focal deficit/slurred speech/facial droop PT/OT evals ordered and patient would be agreeable to rehab at dc pending evals per discussion 10/06, 10/07. CM notified and to apply (9) Folate deficiency: Plan: continue supp for etoh, level not low on check but remains on supp (10) Vitamin B12 deficiency: Plan: hx, not low on check (11) Iron deficiency: Plan: iron studies NOT deficient, ferritin actually elevated and suspect 2nd to alcohol use/elevation on admission DOES NEED EGD/C-SCOPE IN OUTPT f/u unless acute bleeding witnessed to prompt inpatient eval again denies blood in stool but did have POSITIVE fecal occult testing but moving bowels/brown in color reported. Monitor hgb as above (12) Hypertension: Plan: hx of such, NOT on meds. BP borderline low but not lightheaded/dizzy and fall precautions in place and orthostatics do not appear positive. BP 112/80 Monitor (13) Depression: Plan: Anxiety and depression- Continue buspirone, fluoxetine trazodone not continued for now, ativan available w/ AWSS as above. (14) Neurogenic claudication due to lumbar spinal stenosis: Plan: chronic back pain, cause for him taking NSAIDs as above discontinued further NSAIDs, fecal occult testing negative Oxycodone 5mg, topical voltaren ordered for neck/back pain but changed to prn given risk of bleeding and has not used and discontinued given risk for bleeding PT/OT evals as above (15) Vitamin D deficiency: Plan: checked given baseline nutritional status -- LOW 19.8, replacement ordered. should continue at dc Plan continued inpatient stay, diet advanced and hgb improved PT/OT recs for rehab, CM notified over the weekend and to send referrals. GIven improvement in hgb, diet advancing and stable for dc in AM to rehab unless any acute issues Admission and Anticipated Discharge Date Admission Date: October 04, 2023 Supervising Physician Co-Signing Physician Notes The patient was not seen by me. The chart was reviewed. Case discussed with SEVEN Robert. Agree with assessment and plan Subjective Evaluated this morning, resting in bed. Feeling better. Hgb improved off voltaren gel, continue current tx. Moving bowels. Would like something more to eat, diet advanced for today. CM notified of need for rehab, continued inpatient stay. No CP/SOB, nausea/vomiting or abdominal pain, Questions/concerns addressed at this time. Physical Exam Physical Exam: General: 52 yo male laying in hospital bed, appears improved, general pallor/unkept but NAD and feeling better/wanting to have regular food, seizure pads in place Head atraumatic, normocephalic, +cervical tenderness but no weakness UE (stable/improved), mm improved, trachea midline, pupils equal Resp; even/unlabored, slightly diminished int he bases but no obvious w/c/r, on room air 97% CV: RRR, faint systolic murmur, no pitting edema/calf tenderness , SCDs GI: +BS, soft/nontender no kramer MSK/Neuro: chronic lumbar spine issues but dorsiflexion/plantarflexion intact, pulses palpable, UE strength testing wnl Psych; AOx3 cooperative with exam but flat affect Results & Data Results & Data Vital Signs (Past 12 Hours) Vital Signs Temp Pulse Pulse Resp BP Pulse Ox O2 Del Method 10/08/23 07:12 36.8 C 79 17 112/80 97 Room Air 10/08/23 02:54 36.5 C 84 17 114/79 98 Room Air 10/08/23 01:00 10/07/23 23:43 76 10/07/23 22:47 36.6 C 73 18 111/75 98 Room Air 10/07/23 20:59 Room Air O2 Del Method 10/08/23 07:12 10/08/23 02:54 10/08/23 01:00 Room Air 10/07/23 23:43 10/07/23 22:47 10/07/23 20:59 Laboratory Results 10/08/23 Range/Units 06:15 WBC 7.85 (4.8-10.8) K/ul RBC 2.58 L (4.70-6.10) M/uL Hgb 8.9 L (14.0-18.0) g/dl Hct 25.5 L (42.0-52.0) % MCV 98.8 (80.0-100.0) fL MCH 34.5 H (25.0-34.0) pg MCHC 34.9 (32.0-36.0) g/dL RDW Std Deviation 55.3 H (36.4-46.3) fL RDW Coeff of Arturo 15.3 H (11.5-14.5) % Plt Count 175 (130-400) K/uL MPV 10.2 (9.4-12.4) fL Sodium Pending Potassium Pending Chloride Pending Carbon Dioxide Pending Anion Gap Pending BUN Pending Creatinine Pending Est Cr Clr Drug Dosing Pending Est GFR ( Amer) Pending Est GFR (Non-Af Amer) Pending BUN/Creatinine Ratio Pending Glucose Pending Calcium Pending Phosphorus Pending Magnesium Pending Total Bilirubin Pending Direct Bilirubin Pending AST Pending ALT Pending Alkaline Phosphatase Pending Total Protein Pending Albumin Pending PG Care Time/CCT Total # of Minutes Spent Total Time Spent with Patient: Total time spent is greater than 50% in coordination of care (as documented) at patient's floor/unit and/or counseling patient: Coding Level of Care Code 56330 SUB INP/OBS CARE 3/50MIN Diagnoses Anemia D64.9 Anemia type: unspecified type Acute kidney injury N17.9 Alcohol abuse F10.10 Hyponatremia E87.1 Hypokalemia E87.6 Protein calorie malnutrition E46 Hypomagnesemia E83.42 Weakness R53.1 Folate deficiency E53.8 Vitamin B12 deficiency E53.8 Iron deficiency E61.1 Hypertension I10 Depression F32.A Neurogenic claudication due to lumbar spinal stenosis M48.062 Vitamin D deficiency E55.9 (1) Anemia Anemia type: unspecified type Qualified Code(s): D64.9 - Anemia, unspecified
--- NOTE | 2023-10-08 09:21 | Gastroenterology Progress Note ---
Date of Service October 08, 2023 Assessment & Plan (1) Anemia: Plan: 52 year old male with history of ongoing ETOH abuse, alcohol withdrawal, alcoholic pancreatitis, folate deficiency, B12 deficiency, iron deficiency, depression, hypertension, tobacco use disorder and lumbar radiculopathy admitted through the ED w/ weakness - GI asked to evaluate for anemia in the setting of ETOH abuse, NSAIDs use. He is hemodynamically stable w/ brown stools and no report of black or bloody output to indicate an active GI bleed. His anemia is likely multifactorial. Recommend PO PPI BID for 1 month then PO PPI once daily. Trend H&H. Monitor and document GI output. Transfuse PRN per primary service. Check iron studies, ferritin. Recommend OP EGD/Colonoscopy. Encouraged assisted ETOH cessation, tobacco cessation. Limit NSAIDs. Thank you for allowing us to participate in the care of this patient. Please call with any acute changes, questions or concerns. Please see addendum below with additional recommendation from my supervising physician. I spent a total of 30 minutes on the date of service in review of patient's record, and previously obtained information in person and appropriate medical visit, discussion and education of plan, with patient and/or caregiver, placing orders for tests/referral/procedures as medically necessary and documentation of pertinent clinical information in patient's medical records for their visit today. Admission and Anticipated Discharge Date Admission Date: October 04, 2023 Supervising Physician Co-Signing Physician Notes Patient seen and evaluated with hospitalist. States that pain better. staeted on low fat diet today. States that is tolerating well. He does appear pale. He is still drinking and had the last drink abouy a week ago. Abdomen soft mile tenderness. A/P Pancreatitis: Has had repeated episoded and still continuing to drink. Now has a fluid collection and questionable mass. Would obtain a triple phase CT scan or MRI of the pancreas and also check CA-19-9. will follow Anemia: Will need EGD and colonoscopy as OP once this acute episode of pancreatitis has resolved 3. Alcoholism Will need rehab Will follow with you Subjective Pt was seen and evaluated, chart reviewed. Feeling better - appetite is improving. Wants to eat regular food. Moving brown stool. No report of black or bloody BMs. Review of Systems Review of Systems: All other findings negative except as noted in HPI. Physical Exam Constitutional: WD/WN, vitals as above Respiratory: normal respiratory effort, lungs clear to auscultation Cardiovascular: Rate/Rhythm: regular rate and regular rhythm Gastrointestinal (Abdomen): normal bowel sounds, soft, nontender, no hepatosplenomegaly Skin: no rashes, warm and dry Results & Data Results & Data Vital Signs (Past 12 Hours) Vital Signs Temp Pulse Pulse Resp BP Pulse Ox O2 Del Method 10/08/23 07:45 75 10/08/23 07:45 Room Air 10/08/23 07:12 36.8 C 79 17 112/80 97 Room Air 10/08/23 02:54 36.5 C 84 17 114/79 98 Room Air 10/08/23 01:00 10/07/23 23:43 76 10/07/23 22:47 36.6 C 73 18 111/75 98 Room Air O2 Del Method 10/08/23 07:45 10/08/23 07:45 10/08/23 07:12 10/08/23 02:54 10/08/23 01:00 Room Air 10/07/23 23:43 10/07/23 22:47 Laboratory Results 10/08/23 Range/Units 06:15 WBC 7.85 (4.8-10.8) K/ul RBC 2.58 L (4.70-6.10) M/uL Hgb 8.9 L (14.0-18.0) g/dl Hct 25.5 L (42.0-52.0) % MCV 98.8 (80.0-100.0) fL MCH 34.5 H (25.0-34.0) pg MCHC 34.9 (32.0-36.0) g/dL RDW Std Deviation 55.3 H (36.4-46.3) fL RDW Coeff of Arturo 15.3 H (11.5-14.5) % Plt Count 175 (130-400) K/uL MPV 10.2 (9.4-12.4) fL Sodium Pending Potassium Pending Chloride Pending Carbon Dioxide Pending Anion Gap Pending BUN Pending Creatinine Pending Est Cr Clr Drug Dosing Pending Est GFR ( Amer) Pending Est GFR (Non-Af Amer) Pending BUN/Creatinine Ratio Pending Glucose Pending Calcium Pending Phosphorus Pending Magnesium Pending Total Bilirubin Pending Direct Bilirubin Pending AST Pending ALT Pending Alkaline Phosphatase Pending Total Protein Pending Albumin Pending PG Care Time/CCT Total # of Minutes Spent Total Time Spent with Patient: Total time spent is greater than 50% in coordination of care (as documented) at patient's floor/unit and/or counseling patient: Coding Level of Care Code 71132 SUB INP/OBS CARE 05/03MIN Diagnoses Anemia D64.9 Anemia type: unspecified type (1) Anemia Anemia type: unspecified type Qualified Code(s): D64.9 - Anemia, unspecified
[2023-10-08 11:10] LABS: Albumin Level 2.2 gm/dl (3.4-5.0); Bilirubin Direct 0.3 mg/dl (0-0.2); Bilirubin,Total 0.9 mg/dl (0.2-1.0); Calcium 7.6 mg/dl (8.6-10.3); Magnesium 1.6 mg/dl (1.7-2.4); Potassium 3.6 mmol/L (3.5-5.1)
[2023-10-08 11:16] LABS: BUN Creatinine Ratio 21.8 (10-20); Creatinine Clr Calc Pharmacy 137.3 ml/min; Est GFR (African American) 137.9 ml/min; Phosphorus 2.7 mg/dl (2.5-4.9); Total Protein 4.8 gm/dl (6.0-8.3)
[2023-10-08] MEDS: MAGNESIUM SULFATE / D5W 1 GM/100 ML BAG IV SCH (11:30)
[2023-10-08] MEDS: SODIUM BICARBONATE 650 MG TAB PO SCH (13:20)
--- NOTE | 2023-10-08 16:34 | Communication Note ---
Date of Service: October 08, 2023 Discussed w/ GI NIKA, plan to check CA 19-9 w/ AM labs given pancreatic findings and susie plan for MRI pancreas given continued inpatient stay and concern for questionable mass r/o Will need EUS outpatient as well as EGD/c-scope
[2023-10-08] MEDS: GADOBUTROL 65ML VIAL IV ONE (19:52)
[2023-10-08] MEDS: PANTOprazole 40 MG TAB PO SCH (20:06)
--- NOTE | 2023-10-09 01:30 | Magnetic Resonance Report ---
Exam(s): MRI ABDOMEN W/WO Contrast IV Amt: 6cc gadavist EXAM: MR Abdomen Without and With Intravenous Contrast CLINICAL HISTORY: recurrent panc, panc fluid collection, ?panc lesion. TECHNIQUE: Multiplanar magnetic resonance images of the abdomen without and with intravenous contrast. CONTRAST: 6cc Gadavist of IV contrast COMPARISON: No relevant prior studies available. FINDINGS: Limitations: There is respiratory artifact on several imaging sequences, with resulting degradation in image quality. Lung bases: See below. Pleural space: Layering bilateral pleural effusions, left throughout the greater than right, measuring up to 3 cm in the posterior costophrenic margin. Liver: Unremarkable. No mass. Gallbladder and bile ducts: There is a solitary subcentimeter gallstone noted in the gallbladder measuring 6.3 mm. No gallbladder wall thickening. No biliary dilatation. Pancreas: There is a tubular fluid structure involving the head and neck of the pancreas, predominantly vertical in orientation, measuring up to 1.3 cm in diameter by 4 cm in length, which appears to be separate from the proximal pancreatic duct which appears to be at least partially separate from the proximal pancreatic duct, best suggested on coronal postcontrast imaging (series 15; images 85-97). Subtle communication between the proximal pancreatic duct and the cystic structure is difficult to evaluate with respiratory artifact on nearly all imaging sequences. No obvious internal solid enhancing components identified. Spleen: The multiloculated fluid collection with internal thin septations is again noted, measuring up to 10.2 x 8.4 x 7.1 cm with lobular components extending somewhat circumferentially along the anterior margin of the splenic hilum in about the proximal stomach. No definite internal solid nodular components noted. Adrenals: Not well delineated. No obvious mass. Kidneys and ureters: Unremarkable. No hydronephrosis. No solid mass. Stomach and bowel: Limited with extensive respiratory artifact. The stomach is contoured by the pancreatic collection but is decompressed. No evidence for bowel obstruction. Intraperitoneal space: No definite free fluid collection. Soft tissues: Unremarkable. Vasculature: Unremarkable. No abdominal aortic aneurysm. Lymph nodes: Unremarkable. No enlarged lymph nodes. IMPRESSION: 1. The multiloculated fluid collection with internal thin septations is again noted, measuring up to 10.2 x 8.4 x 7.1 cm with lobular components extending somewhat circumferentially along the anterior margin of the splenic hilum in about the proximal stomach. No definite internal solid nodular components noted. 2. There is a tubular fluid structure involving the head and neck of the pancreas, predominantly vertical in orientation, measuring up to 1.3 cm in diameter by 4 cm in length, which appears to be separate from the proximal pancreatic duct which appears to be at least partially separate from the proximal pancreatic duct, best suggested on coronal postcontrast imaging (series 15; images 85-97). Subtle communication between the proximal pancreatic duct and the cystic structure is difficult to evaluate with respiratory artifact on nearly all imaging sequences. No obvious internal solid enhancing components identified. 3. Layering bilateral pleural effusions, left throughout the greater than right, measuring up to 3 cm in the posterior costophrenic margin. 4. There is a solitary subcentimeter gallstone noted in the gallbladder measuring 6.3 mm. No gallbladder wall thickening. No biliary dilatation. Electronically signed by: Ronnie Calderón MD 10/09/23 01:29 AM
[2023-10-09 07:06] LABS: Hematocrit (blood only) 24.6 % (42.0-52.0); Hemoglobin 8.5 g/dl (14.0-18.0); Mean Corpuscular Hemoglobin 34.6 pg (25.0-34.0); Mean Corpuscular Hgb Conc 34.6 g/dL (32.0-36.0); Mean Platelet Volume 10.3 fL (9.4-12.4); Platelet Count 181 K/uL (130-400); RDW Coefficient of Variation 15.3 % (11.5-14.5); RDW Standard Deviation 55.7 fL (36.4-46.3); Red Blood Count 2.46 M/uL (4.70-6.10); White Blood Count 7.74 K/ul (4.8-10.8)
[2023-10-09 07:14] LABS: INR 1.3 (0.9-1.1); Prothrombin Time 13.8 Seconds (9.0-12.0)
[2023-10-09 07:53] LABS: Albumin Level 2.2 gm/dl (3.4-5.0); Bilirubin Direct 0.4 mg/dl (0-0.2); Calcium 7.3 mg/dl (8.6-10.3); Magnesium 1.4 mg/dl (1.7-2.4); Potassium 3.5 mmol/L (3.5-5.1)
[2023-10-09 07:59] LABS: BUN Creatinine Ratio 15.4 (10-20); Creatinine Clr Calc Pharmacy 144.8 ml/min; Est GFR (African American) 141.1 ml/min; Est GFR (Non-African American) 121.7 ml/min; Phosphorus 2.1 mg/dl (2.5-4.9); Total Protein 4.9 gm/dl (6.0-8.3)
[2023-10-09] MEDS: MAGNESIUM SULFATE / D5W 1 GM/100 ML BAG IV SCH (09:35)
--- NOTE | 2023-10-09 09:36 | Gastroenterology Progress Note ---
Date of Service October 09, 2023 Assessment & Plan (1) Anemia: Plan: 52 year old male with history of ongoing ETOH abuse, alcohol withdrawal, alcoholic pancreatitis, folate deficiency, B12 deficiency, iron deficiency, depression, hypertension, tobacco use disorder and lumbar radiculopathy admitted through the ED w/ weakness - GI asked to evaluate for anemia in the setting of ETOH abuse, NSAIDs use. He is hemodynamically stable w/ brown stools and no report of black or bloody output to indicate an active GI bleed. His anemia is likely multifactorial. Recommend PO PPI BID for 1 month then PO PPI once daily. Trend H&H. Monitor and document GI output. Transfuse PRN per primary service. Check iron studies, ferritin. Recommend OP EGD/Colonoscopy. MRI pancreas yesterday w/ 10.2 x 8.4 x 7.1 cm multiloculated fluid collection with internal thin septations extending circumferentially along the anterior margin of the splenic hilum in about the proximal stomach w/o internal solid nodular components. There is also a report of a tubular fluid structure involving the head and neck of the pancreas measuring up to 1.3 cm by 4 cm in length w/ subtle communication between the proximal pancreatic duct and the cystic structure is difficult to evaluate with respiratory artifact on nearly all imaging sequences. There is also a gallstone noted in the gallbladder without gallbladder wall thickening or biliary dilatation. Will review with attending. Consider transfer inpatient EUS evaluation at an advanced biliary center as this fluid collection may be amendable to axios. Encouraged terminologist ETOH cessation, tobacco cessation. Limit NSAIDs. Thank you for allowing us to participate in the care of this patient. Please call with any acute changes, questions or concerns. Please see addendum below with additional recommendation from my supervising physician. I spent a total of 50 minutes on the date of service in review of patient's record, and previously obtained information in person and appropriate medical visit, discussion and education of plan, with patient and/or caregiver, placing orders for tests/referral/procedures as medically necessary and documentation of pertinent clinical information in patient's medical records for their visit today. Admission and Anticipated Discharge Date Admission Date: October 04, 2023 Supervising Physician Co-Signing Physician Notes I examined the patient and reviewed the medical record, laboratory data and imaging studies. I agree with the assessment and plan of care as suggested by the advanced practice provider. Patient appears comfortable in the bed at the current time. He states he is does have some back pain which is probably related to the pancreatic pseudocyst that he is developing he is tolerating p.o. I reviewed his CT scan with the radiologist and there is a fluid collection which is essentially unchanged from last week he also has a possible IPMN and at the current time I would recommend 1. Check CA 19-9 2. Low residue diet 3. Repeat imaging in approximately 2 weeks time to evaluate whether the fluid collection is getting organized or increasing in size 4. Would benefit from rehab with alcohol sustenance as the patient was continuing to drink as early as last week Thank you for allowing us to take part in the Patient will continue to follow him with you Subjective Pt was seen and evaluated, chart reviewed. Feeling well. No abd pain. Tolerating low fat diet. No nausea, vomiting. Moved stool yesterday. No black or bloody stools. No fever, chills, CP, SOB. MRI PANCREAS 2023: The multiloculated fluid collection with internal thin sep tations is again noted, measuring up to 10.2 x 8.4 x 7.1 cm with lobular components extending somewhat circumferentially along the anterior margin of the splenic hilum in about the proximal stomach. No definite internal solid nodular components noted. There is a tubular fluid structure involving the head and neck of the pancreas, predominantly vertical in orientation, measuring up to 1.3 cm in diameter by 4 cm in length, which appears to be separate from the proximal pancreatic duct which appears to be at least partially separate from the proximal pancreatic duct, best suggested on coronal postcontrast imaging (series 15; images 85-97). Subtle communication between the proximal pancreatic duct and the cystic structure is difficult to evaluate with respiratory artifact on nearly all imaging sequences. No obvious internal solid enhancing components identified. There is a solitary subcentimeter gallstone noted in the gallbladder measuring 6.3 mm. No gallbladder wall thickening. No biliary dilatation. Review of Systems Review of Systems: All other findings negative except as noted in HPI. Physical Exam Constitutional: WD/WN, vitals as above Respiratory: normal respiratory effort, lungs clear to auscultation Cardiovascular: Rate/Rhythm: regular rate and regular rhythm Gastrointestinal (Abdomen): normal bowel sounds, soft, nontender, no hepatosplenomegaly Skin: no rashes, warm and dry Results & Data Results & Data Vital Signs (Past 12 Hours) Vital Signs Temp Pulse Pulse Resp BP Pulse Ox O2 Del Method 10/09/23 07:44 88 10/09/23 07:44 Room Air 10/09/23 07:21 36.8 C 86 16 111/77 99 Room Air 10/09/23 03:27 36.7 C 88 16 108/77 99 Room Air 10/09/23 01:00 10/08/23 22:52 36.7 C 82 16 104/70 98 Room Air 10/08/23 22:44 79 O2 Del Method 10/09/23 07:44 10/09/23 07:44 10/09/23 07:21 10/09/23 03:27 10/09/23 01:00 Room Air 10/08/23 22:52 10/08/23 22:44 Laboratory Results 10/09/23 10/08/23 Range/Units 06:19 06:15 WBC 7.74 (4.8-10.8) K/ul RBC 2.46 L (4.70-6.10) M/uL Hgb 8.5 L (14.0-18.0) g/dl Hct 24.6 L (42.0-52.0) % MCV 100.0 (80.0-100.0) fL MCH 34.6 H (25.0-34.0) pg MCHC 34.6 (32.0-36.0) g/dL RDW Std Deviation 55.7 H (36.4-46.3) fL RDW Coeff of Arturo 15.3 H (11.5-14.5) % Plt Count 181 (130-400) K/uL MPV 10.3 (9.4-12.4) fL PT 13.8 H (9.0-12.0) Seconds INR 1.3 H (0.9-1.1) Sodium 136 137 (136-145) mmol/L Potassium 3.5 3.6 (3.5-5.1) mmol/L Chloride 111 H 112 H (98-107) mmol/L Carbon Dioxide 19 L 19 L (21-32) mmol/L Anion Gap 6 6 (3-11) BUN 8 12 (6-23) mg/dl Creatinine 0.52 L 0.55 L (0.6-1.4) mg/dl Est Cr Clr Drug Dosing 144.8 137.3 ml/min Est GFR ( Amer) 141.1 137.9 ml/min Est GFR (Non-Af Amer) 121.7 119.0 ml/min BUN/Creatinine Ratio 15.4 21.8 H (10-20) Glucose 98 91 (70-99(Fasting)) mg/dl Calcium 7.3 L 7.6 L (8.6-10.3) mg/dl Phosphorus 2.1 L 2.7 (2.5-4.9) mg/dl Magnesium 1.4 L 1.6 L (1.7-2.4) mg/dl Total Bilirubin 1.0 0.9 (0.2-1.0) mg/dl Direct Bilirubin 0.4 H 0.3 H (0-0.2) mg/dl AST 22 26 (13-39) U/L ALT 16 16 (7-52) U/L Alkaline Phosphatase 159 H 161 H (34-104) U/L Total Protein 4.9 L 4.8 L (6.0-8.3) gm/dl Albumin 2.2 L 2.2 L (3.4-5.0) gm/dl CA 19-9 Antigen Pending PG Care Time/CCT Total # of Minutes Spent Total Time Spent with Patient: Total time spent is greater than 50% in coordination of care (as documented) at patient's floor/unit and/or counseling patient: Coding Level of Care Code 35736 SUB INP/OBS CARE 3/50MIN Diagnoses Anemia D64.9 Anemia type: unspecified type (1) Anemia Anemia type: unspecified type Qualified Code(s): D64.9 - Anemia, unspecified
[2023-10-09 14:27] LABS: HIV 1 RNA PCR Copies/ML NOT DETECTED copies/mL (NOT DETECTED); HIV-1 RNA Log Copies/mL NOT DETECTED (NOT DETECTED); Hepatitis A Antibody IgM NON-REACTIVE (NON-REACTIVE); Hepatitis B Core Antibody IgM NON-REACTIVE (NON-REACTIVE)
--- NOTE | 2023-10-09 17:21 | Hospitalist Progress Note ---
Date of Service October 09, 2023 Assessment & Plan (1) Anemia: Plan: Anemia/protein calorie malnutrition- Hgb 7.5 on admission w/ albumin 1.9, INR 1.4. Hemoccult negative in ER but POSITIVE ON REPEAT. Iron studies w/ elevations > ?reactive from alcohol use (alcohol level 107 on admit, 2-3beers/daily reported). B12/folate without deficiency but remains on thiamine/folate supplementation given alcohol use. TSH wnl 1.7 Type/screen and consent obtained on admission, MELD score 18 Hgb 7.5 --> 6.7 on repeat but did get 2L IVF but given ASIYA and SOB/weakness ordered PRBC for transfusion S/p 2u PRBC, IVF for ASIYA on admit CTAP obtained, CTAP noting acute pancreatitis w/ acute peripancreatic collections, hepatic steatosis, trace b/l effusions Lipase NOT elevated, suspect chronic/pseudocyst per GI who was consulted Per GI, given hemodynamically stable w/ brown bowel movements, plan for outpt EGD/c-scope Creon continued for pancreatic insufficiency Hgb to 9.4 (but was h/h) but 8.5 on repeat and down to 8.0 off IVF and asked GI to re-eval and recs for clear liquid diet and MNPG re-eval in AM but no acute bleeding obs and Cortisol level NOT low Nutrition consulted Continues on Protonix BID, Carafate QID. Hgb improved to 8.9 today. INR 1.3 prior and stable. Clear liquid diet --> Low fat. -Continue added Creon for pancreatic insufficiency/chronic pancreatitis/pseudocyst on CTAP PT/OT consulted and evals not yet in but patient reports recs for rehab and agreeable. Notified CM Can likely dc to rehab once bed available, will need outpt EGD/c-scope GI recommended transfer to biliary center for inpatient EUS. Transfer attempted to [facility] and [facility], however they denied transfer. Will continue with management at [facility] with close outpatient follow-up for OP EUS, EGD, and colonoscopy. (2) Acute kidney injury: Plan: Cr 2.19 on admission w/ electrolyte disturbances/hypomag/hypokalemia likely 2nd to alchol use Banana bag in ER, additional IVF for CTAP findings but lipase not elevated and see above PRBC, IVF hydration and BUn/Cr normalized 16/0.86 and IVF discontinued Avoid NSAIDs, avoid nephrotoxins, renal dose meds as able UA did not appear infected Monitor BMP (3) Alcohol abuse: Plan: Etoh 107 on admission, 2-3beers/daily w/ heavy NSAID use s/p banana bag, continue thiamine/folic acid. B12 not deficient IVF, NaHCO3 PO ordered, CO normalized Na stable 137 (126 on admit, seizure precautions in place) Telemetry monitoring, AWSS, no evidence for DTs but did order 0.5mg PO Ativan for anxiety daily. remains on BuSpar. No SI/HI. (4) Iron deficiency: Plan: iron studies NOT deficient, ferritin actually elevated and suspect 2nd to alcohol use/elevation on admission DOES NEED EGD/C-SCOPE IN OUTPT f/u unless acute bleeding witnessed to prompt inpatient eval again denies blood in stool but did have POSITIVE fecal occult testing but moving bowels/brown in color reported. Monitor hgb as above (5) Vitamin D deficiency: Plan: Checked given baseline nutritional status -- LOW 19.8, replacement ordered. Should continue at dc Plan Attempted to transfer patient to biliary center Discussed case with GI Repleted magnesium continued inpatient stay, diet advanced and hgb improved PT/OT recs for rehab, CM notified over the weekend and to send referrals. GIven improvement in hgb, diet advancing and stable for dc in AM to rehab unless any acute issues Anxiety and depression- Continue buspirone, fluoxetine trazodone not continued for now, ativan available w/ AWSS as above. Chronic back pain- Discontinued further NSAIDs, topical voltaren ordered discontinued given risk for bleeding, fecal occult testing negative Oxycodone 5mg PRN Admission and Anticipated Discharge Date Admission Date: October 04, 2023 Subjective Patient seen and evaluated at bedside. He reports feeling very tired. He was anxious this morning, however this has resolved at the time my evaluation. He reports some abdominal pain after eating. GI recommended transfer to biliary center for inpatient EUS. I discussed this recommendation with the patient, who is agreeable to transfer if needed. I did try to get the patient transferred to [facility], however the transfer was denied for both [facility] and [facility]. Physical Exam Physical Exam: General: No acute distress, nondiaphoretic. General pallor. Skin: The skin was without rashes, erythema, edema, or bruising. Cardiac: Regular rate and rhythm. Faint systolic murmur. Pulm: Clear to auscultation bilaterally without wheezes, rales or rhonchi. Slightly diminished breath sounds at bases. No respiratory distress. 100% on room air. Abdominal: Soft, nontender, nondistended. Bowel sounds present. Neuro: A&O x3. No focal neurological deficits. Results & Data Results & Data Vital Signs (Past 12 Hours) Vital Signs Temp Pulse Pulse Resp BP Pulse Ox O2 Del Method 10/09/23 15:40 91 H 10/09/23 15:25 36.7 C 92 H 17 114/84 100 Room Air 10/09/23 10:47 36.8 C 86 17 102/70 99 Room Air 10/09/23 07:44 88 10/09/23 07:44 Room Air 10/09/23 07:21 36.8 C 86 16 111/77 99 Room Air Laboratory Results Reviewed CBC Reviewed CMP Reviewed coags Medications Administered Reviewed abdomen MRI from 10/08/2023 FINDINGS: Limitations: There is respiratory artifact on several imaging sequences, with resulting degradation in image quality. Lung bases: See below. Pleural space: Layering bilateral pleural effusions, left throughout the greater than right, measuring up to 3 cm in the posterior costophrenic margin. Liver: Unremarkable. No mass. Gallbladder and bile ducts: There is a solitary subcentimeter gallstone noted in the gallbladder measuring 6.3 mm. No gallbladder wall thickening. No biliary dilatation. Pancreas: There is a tubular fluid structure involving the head and neck of the pancreas, predominantly vertical in orientation, measuring up to 1.3 cm in diameter by 4 cm in length, which appears to be separate from the proximal pancreatic duct which appears to be at least partially separate from the proximal pancreatic duct, best suggested on coronal postcontrast imaging (series 15; images 85-97). Subtle communication between the proximal pancreatic duct and the cystic structure is difficult to evaluate with respiratory artifact on nearly all imaging sequences. No obvious internal solid enhancing components identified. Spleen: The multiloculated fluid collection with internal thin septations is again noted, measuring up to 10.2 x 8.4 x 7.1 cm with lobular components extending somewhat circumferentially along the anterior margin of the splenic hilum in about the proximal stomach. No definite internal solid nodular components noted. Adrenals: Not well delineated. No obvious mass. Kidneys and ureters: Unremarkable. No hydronephrosis. No solid mass. Stomach and bowel: Limited with extensive respiratory artifact. The stomach is contoured by the pancreatic collection but is decompressed. No evidence for bowel obstruction. Intraperitoneal space: No definite free fluid collection. Soft tissues: Unremarkable. Vasculature: Unremarkable. No abdominal aortic aneurysm. Lymph nodes: Unremarkable. No enlarged lymph nodes. IMPRESSION: 1. The multiloculated fluid collection with internal thin septations is again noted, measuring up to 10.2 x 8.4 x 7.1 cm with lobular components extending somewhat circumferentially along the anterior margin of the splenic hilum in about the proximal stomach. No definite internal solid nodular components noted. 2. There is a tubular fluid structure involving the head and neck of the pancreas, predominantly vertical in orientation, measuring up to 1.3 cm in diameter by 4 cm in length, which appears to be separate from the proximal pancreatic duct which appears to be at least partially separate from the proximal pancreatic duct, best suggested on coronal postcontrast imaging (series 15; images 85-97). Subtle communication between the proximal pancreatic duct and the cystic structure is difficult to evaluate with respiratory artifact on nearly all imaging sequences. No obvious internal solid enhancing components identified. 3. Layering bilateral pleural effusions, left throughout the greater than right, measuring up to 3 cm in the posterior costophrenic margin. 4. There is a solitary subcentimeter gallstone noted in the gallbladder measuring 6.3 mm. No gallbladder wall thickening. No biliary dilatation. PG Care Time/CCT Total # of Minutes Spent Total Time Spent with Patient: Total time spent is greater than 50% in coordination of care (as documented) at patient's floor/unit and/or counseling patient: Coding Level of Care Code 25192 SUB INP/OBS CARE 3/50MIN Diagnoses Anemia D64.9 Anemia type: unspecified type Acute kidney injury N17.9 Alcohol abuse F10.10 Iron deficiency E61.1 Vitamin D deficiency E55.9 (1) Anemia Anemia type: unspecified type Qualified Code(s): D64.9 - Anemia, unspecified
[2023-10-10 07:53] LABS: Hematocrit (blood only) 23.4 % (42.0-52.0); Mean Corpuscular Hgb Conc 34.2 g/dL (32.0-36.0); Mean Corpuscular Volume 99.6 fL (80.0-100.0); Mean Platelet Volume 10.3 fL (9.4-12.4); Platelet Count 188 K/uL (130-400); RDW Coefficient of Variation 15.2 % (11.5-14.5); RDW Standard Deviation 54.9 fL (36.4-46.3); Red Blood Count 2.35 M/uL (4.70-6.10); White Blood Count 8.28 K/ul (4.8-10.8)
[2023-10-10 08:10] LABS: Albumin Globulin Ratio 0.8 (0.9-2); Albumin Level 2.1 gm/dl (3.4-5.0); BUN Creatinine Ratio 13.5 (10-20); Bilirubin,Total 0.9 mg/dl (0.2-1.0); Calcium 7.2 mg/dl (8.6-10.3); Creatinine Clr Calc Pharmacy 144.8 ml/min; Est GFR (African American) 141.1 ml/min; Est GFR (Non-African American) 121.7 ml/min; Globulin 2.6 gm/dl (2.5-4.0); Magnesium 1.2 mg/dl (1.7-2.4); Potassium 3.8 mmol/L (3.5-5.1); Total Protein 4.7 gm/dl (6.0-8.3)
--- NOTE | 2023-10-10 08:15 | Hospitalist Progress Note ---
Date of Service October 10, 2023 Assessment & Plan (1) High serum carbohydrate antigen 19-9 (CA19-9): Plan: CTAP obtained, CTAP noting acute pancreatitis w/ acute peripancreatic collections, hepatic steatosis, trace b/l effusions - Lipase NOT elevated, suspect chronic/pseudocyst per GI who was consulted - Per GI, given hemodynamically stable w/ brown bowel movements, plan for outpt EGD/c-scope - Creon continued for pancreatic insufficiency Continues on Protonix BID, Carafate QID. Tolerating low-fat diet CA 199 was markedly elevated at 336. Pancreatic fluid collection and a possible IPMN, suspicious for malignancy in view of this markedly elevated CA 199. GI recommended transfer for inpatient EUS. Transfer attempted to [facility], [facility], and [facility], however they denied transfer. Will continue with management at [facility] with close outpatient pancreaticobiliary center follow-up for EUS, EGD, and colonoscopy. (2) Anemia: Plan: Anemia/protein calorie malnutrition- Hgb 7.5 on admission w/ albumin 1.9, INR 1.4. - Hemoccult negative in ER but POSITIVE ON REPEAT. Iron studies w/ elevations > ?reactive from alcohol use (alcohol level 107 on admit, 2-3beers/daily reported). - B12/folate without deficiency but remains on thiamine/folate supplementation given alcohol use. TSH wnl 1.7 - Type/screen and consent obtained on admission, MELD score 18 - Hgb 7.5 --> 6.7 on repeat but did get 2L IVF but given ASIYA and SOB/weakness ordered PRBC for transfusion - S/p 2u PRBC, IVF for ASIYA on admit Hypomagnesemia, despite recurrent repletion Mag 1.2 on 10/10/2023. Ordered 4 bags of IV magnesium and oral mag supplementation twice daily (3) Acute kidney injury: Plan: Cr 2.19 on admission w/ electrolyte disturbances/hypomag/hypokalemia likely 2nd to alchol use Banana bag in ER, additional IVF for CTAP findings PRBC, IVF hydration and BUn/Cr normalized 16/0.86 and IVF discontinued Avoid NSAIDs, avoid nephrotoxins, renal dose meds as able UA did not appear infected Monitor BMP ASIYA resolved (4) Alcohol abuse: Plan: Etoh 107 on admission, 2-3beers/daily w/ heavy NSAID use s/p banana bag, continue thiamine/folic acid. B12 not deficient IVF, NaHCO3 PO ordered, CO normalized Na stable 137 (126 on admit, seizure precautions in place) Telemetry monitoring, AWSS, no evidence for DTs but did order 0.5mg PO Ativan for anxiety daily. remains on BuSpar. No SI/HI. (5) Iron deficiency: Plan: iron studies NOT deficient, ferritin actually elevated and suspect 2nd to alcohol use/elevation on admission DOES NEED EGD/C-SCOPE IN OUTPT f/u unless acute bleeding witnessed to prompt inpatient eval again denies blood in stool but did have POSITIVE fecal occult testing but moving bowels/brown in color reported. Monitor hgb as above (6) Vitamin D deficiency: Plan: Checked given baseline nutritional status -- LOW 19.8, replacement ordered. Should continue at dc Plan Attempted to transfer patient to [facility] Repleted magnesium Discussed case with case management Updated patient's sister, Miranda, via phone call Chronic stable conditions: Anxiety and depression- Continue buspirone, fluoxetine trazodone not continued for now, ativan available w/ AWSS as above. Chronic back pain- Discontinued further NSAIDs, topical voltaren ordered discontinued given risk for bleeding, fecal occult testing negative Oxycodone 5mg PRN CODE STATUS: Full code Admission and Anticipated Discharge Date Admission Date: October 04, 2023 Subjective Patient seen and evaluated at bedside. He reports his back pain is improved today. He is tolerating low-fat diet without complaints. He does still report generalized weakness. We had a lengthy discussion about markedly elevated CA 19-9 and importance of close outpatient EUS evaluation to investigate possible pancreatic malignancy. Physical Exam Physical Exam: General: No acute distress, nondiaphoretic. General pallor. Skin: The skin was without rashes, erythema, edema, or bruising. Cardiac: Regular rate and rhythm. Faint systolic murmur. Pulm: Clear to auscultation bilaterally without wheezes, rales or rhonchi. Slightly diminished breath sounds at bases. No respiratory distress. 98% on room air. Abdominal: Soft, nontender, nondistended. Bowel sounds present. Neuro: A&O x3. No focal neurological deficits. Results & Data Results & Data Vital Signs (Past 12 Hours) Vital Signs Temp Pulse Pulse Resp BP Pulse Ox O2 Del Method 07/03/24 03:10 37.0 C 94 H 16 107/75 97 Room Air 10/10/23 01:00 10/09/23 22:54 80 10/09/23 22:43 36.7 C 88 16 113/82 100 Room Air 10/09/23 21:06 Room Air O2 Del Method 10/10/23 03:10 10/10/23 01:00 Room Air 10/09/23 22:54 10/09/23 22:43 10/09/23 21:06 Laboratory Results Reviewed CBC Reviewed CMP PG Care Time/CCT Total # of Minutes Spent Total Time Spent with Patient: Total time spent is greater than 50% in coordination of care (as documented) at patient's floor/unit and/or counseling patient: Coding Level of Care Code 44774 SUB INP/OBS CARE 3/50MIN Diagnoses High serum carbohydrate antigen 19-9 (CA19-9) R79.89 Anemia D64.9 Anemia type: unspecified type Acute kidney injury N17.9 Alcohol abuse F10.10 Iron deficiency E61.1 Vitamin D deficiency E55.9 (2) Anemia Anemia type: unspecified type Qualified Code(s): D64.9 - Anemia, unspecified
--- NOTE | 2023-10-10 09:02 | Gastroenterology Progress Note ---
Date of Service October 10, 2023 Assessment & Plan (1) Anemia: Plan: 52 year old male with history of ongoing ETOH abuse, alcohol withdrawal, alcoholic pancreatitis, folate deficiency, B12 deficiency, iron deficiency, depression, hypertension, tobacco use disorder and lumbar radiculopathy admitted through the ED w/ weakness - GI asked to evaluate for anemia in the setting of ETOH abuse, NSAIDs use. He is hemodynamically stable w/ brown stools and no report of black or bloody output to indicate an active GI bleed. His anemia is likely multifactorial. Recommend PO PPI BID for 1 month then PO PPI once daily. Trend H&H. Monitor and document GI output. Transfuse PRN per primary service. Check iron studies, ferritin. Recommend OP EGD/Colonoscopy. MRI pancreas yesterday w/ 10.2 x 8.4 x 7.1 cm multiloculated fluid collection with internal thin septations extending circumferentially along the anterior margin of the splenic hilum in about the proximal stomach w/o internal solid nodular components. There is also a report of a tubular fluid structure invol ving the head and neck of the pancreas measuring up to 1.3 cm by 4 cm in length w/ subtle communication between the proximal pancreatic duct and the cystic structure is difficult to evaluate with respiratory artifact on nearly all imaging sequences. There is also a gallstone noted in the gallbladder without gallbladder wall thickening or biliary dilatation. He was not accepted for transfer at tertiary center. Please arrange OP follow up with a pancreatobiliary center who is capable of EUS. He will need a CT Scan in about 4-6 weeks to re- assess the fluid collection as well. Encouraged long-term ETOH cessation, tobacco cessation. Limit NSAIDs. Recall as needed. Thank you for allowing us to participate in the care of this patient. Please call with any acute changes, questions or concerns. Please see addendum below with additional recommendation from my supervising physician. I spent a total of 55 minutes on the date of service in review of patient's record, and previously obtained information in person and appropriate medical visit, discussion and education of plan, with patient and/or caregiver, placing orders for tests/referral/procedures as medically necessary and documentation of pertinent clinical information in patient's medical records for their visit today. Admission and Anticipated Discharge Date Admission Date: October 04, 2023 Supervising Physician Co-Signing Physician Notes I examined the patient and reviewed the medical record, laboratory data and imaging studies. I agree with the assessment and plan of care as suggested by the advanced practice provider. Patient appears comfortable he states that his back pain is better he is tolerating p.o. without complaints however he still has a lot of lack of energy he is not walking he is mostly lying in the bed he has lost a lot of weight of note his CA 19-9 was markedly elevated at 336 he does have this pancreatic fluid collection and a possible IPMN which may be suspicious for malignancy in view of this markedly elevated CA 19-9 at the current time I would 1. Refer for EUS evaluation to see if the patient has a pancreatic malignancy 2. Continue with low-fat diet 3. Will need long-term rehab Thank you for allowing us to take part in the care of your patient will follow Subjective Pt not accepted for transfer at tertiary center. This AM offers no concerns. Back pain seems improved. Tolerating low fat diet. No nausea, vomiting. Moving bowels without report of black or bloody stools. Review of Systems Review of Systems: All other findings negative except as noted in HPI. Physical Exam Constitutional: WD/WN, vitals as above Respiratory: normal respiratory effort, lungs clear to auscultation Cardiovascular: Rate/Rhythm: regular rate and regular rhythm Gastrointestinal (Abdomen): normal bowel sounds, soft, nontender, no hepatosplenomegaly Skin: no rashes, warm and dry Results & Data Results & Data Vital Signs (Past 12 Hours) Vital Signs Temp Pulse Pulse Resp BP BP Pulse Ox 10/10/23 07:48 36.7 C 101 H 16 104/74 98 10/10/23 03:10 37.0 C 94 H 16 107/75 97 10/10/23 01:00 10/09/23 22:54 80 10/09/23 22:43 36.7 C 88 16 113/82 100 10/09/23 21:06 O2 Del Method O2 Del Method 10/10/23 07:48 Room Air 10/10/23 03:10 Room Air 10/10/23 01:00 Room Air 10/09/23 22:54 10/09/23 22:43 Room Air 10/09/23 21:06 Room Air Laboratory Results 10/10/23 10/06/23 Range/Units 07:21 07:14 WBC 8.28 (4.8-10.8) K/ul RBC 2.35 L (4.70-6.10) M/uL Hgb 8.0 L (14.0-18.0) g/dl Hct 23.4 L (42.0-52.0) % MCV 99.6 (80.0-100.0) fL MCH 34.0 (25.0-34.0) pg MCHC 34.2 (32.0-36.0) g/dL RDW Std Deviation 54.9 H (36.4-46.3) fL RDW Coeff of Arturo 15.2 H (11.5-14.5) % Plt Count 188 (130-400) K/uL MPV 10.3 (9.4-12.4) fL Sodium 136 (136-145) mmol/L Potassium 3.8 (3.5-5.1) mmol/L Chloride 111 H (98-107) mmol/L Carbon Dioxide 19 L (21-32) mmol/L Anion Gap 6 (3-11) BUN 7 (6-23) mg/dl Creatinine 0.52 L (0.6-1.4) mg/dl Est Cr Clr Drug Dosing 144.8 ml/min Est GFR ( Amer) 141.1 ml/min Est GFR (Non-Af Amer) 121.7 ml/min BUN/Creatinine Ratio 13.5 (10-20) Glucose 103 H (70-99(Fasting)) mg/dl Calcium 7.2 L (8.6-10.3) mg/dl Magnesium 1.2 L (1.7-2.4) mg/dl Total Bilirubin 0.9 (0.2-1.0) mg/dl AST 25 (13-39) U/L ALT 17 (7-52) U/L Alkaline Phosphatase 146 H (34-104) U/L Total Protein 4.7 L (6.0-8.3) gm/dl Albumin 2.1 L (3.4-5.0) gm/dl Globulin 2.6 (2.5-4.0) gm/dl Albumin/Globulin Ratio 0.8 L (0.9-2) Lipase 8 L (11-82) U/L Hepatitis A IgM Ab NON-REACTIVE (NON-REACTIVE) Hep B Core IgM Ab NON-REACTIVE (NON-REACTIVE) HIV-1 RNA copies/mL NOT DETECTED (NOT DETECTED) copies/mL HIV-1 RNA logcopies/mL NOT DETECTED (NOT DETECTED) PG Care Time/CCT Total # of Minutes Spent Total Time Spent with Patient: Total time spent is greater than 50% in coordination of care (as documented) at patient's floor/unit and/or counseling patient: Coding Level of Care Code 65394 SUB INP/OBS CARE 3/50MIN Diagnoses Anemia D64.9 Anemia type: unspecified type (1) Anemia Anemia type: unspecified type Qualified Code(s): D64.9 - Anemia, unspecified
[2023-10-10] MEDS: MAGNESIUM OXIDE 400 MG TAB PO SCH (09:08)
[2023-10-10] MEDS: MAGNESIUM SULFATE / D5W 1 GM/100 ML BAG IV SCH (09:08)
[2023-10-11 07:09] LABS: Hematocrit (blood only) 23.2 % (42.0-52.0); Hemoglobin 8.1 g/dl (14.0-18.0); Mean Corpuscular Hemoglobin 34.8 pg (25.0-34.0); Mean Corpuscular Hgb Conc 34.9 g/dL (32.0-36.0); Mean Corpuscular Volume 99.6 fL (80.0-100.0); Mean Platelet Volume 10.4 fL (9.4-12.4); Platelet Count 210 K/uL (130-400); RDW Coefficient of Variation 15.5 % (11.5-14.5); RDW Standard Deviation 56.2 fL (36.4-46.3); Red Blood Count 2.33 M/uL (4.70-6.10); White Blood Count 7.99 K/ul (4.8-10.8)
[2023-10-11 07:21] LABS: Albumin Globulin Ratio 0.8 (0.9-2); Albumin Level 2.1 gm/dl (3.4-5.0); BUN Creatinine Ratio 14.9 (10-20); Bilirubin,Total 0.8 mg/dl (0.2-1.0); Calcium 7.2 mg/dl (8.6-10.3); Est GFR (African American) 147.1 ml/min; Est GFR (Non-African American) 126.9 ml/min; Globulin 2.7 gm/dl (2.5-4.0); Magnesium 1.5 mg/dl (1.7-2.4); Potassium 4.3 mmol/L (3.5-5.1); Total Protein 4.8 gm/dl (6.0-8.3)
[2023-10-11] MEDS: MAGNESIUM SULFATE / D5W 1 GM/100 ML BAG IV SCH (09:32)
--- NOTE | 2023-10-11 10:53 | Hospitalist Progress Note ---
Date of Service October 11, 2023 Assessment & Plan (1) High serum carbohydrate antigen 19-9 (CA19-9): Plan: CTAP obtained, CTAP noting acute pancreatitis w/ acute peripancreatic collections, hepatic steatosis, trace b/l effusions - Lipase NOT elevated, suspect chronic/pseudocyst per GI who was consulted - Per GI, given hemodynamically stable w/ brown bowel movements, plan for outpt EGD/c-scope - Creon continued for pancreatic insufficiency Continues on Protonix BID, Carafate QID. Tolerating low-fat diet CA 199 was markedly elevated at 336. Pancreatic fluid collection and a possible IPMN, suspicious for malignancy in view of this markedly elevated CA 199. GI recommended transfer for inpatient EUS. Transfer attempted to [facility], [facility], and [facility], however they all denied transfer. Will continue with management at [facility] with close outpatient follow-up at pancreaticobiliary center for EUS, EGD, and colonoscopy. (2) Anemia: Plan: Anemia/protein calorie malnutrition- Hgb 7.5 on admission w/ albumin 1.9, INR 1.4. - Hemoccult negative in ER but POSITIVE ON REPEAT. Iron studies w/ elevations > ?reactive from alcohol use (alcohol level 107 on admit, 2-3beers/daily reported). - B12/folate without deficiency but remains on thiamine/folate supplementation given alcohol use. TSH wnl 1.7 - Type/screen and consent obtained on admission, MELD score 18 - Hgb 7.5 --> 6.7 on repeat but did get 2L IVF but given ASIYA and SOB/weakness ordered PRBC for transfusion - S/p 2u PRBC, IVF for ASIYA on admit Hypomagnesemia, despite recurrent repletion Mag 1.5 on 10/11/2023. Ordered 4 bags of IV magnesium repletion Continue oral mag supplementation twice daily (3) Acute kidney injury: Plan: Cr 2.19 on admission w/ electrolyte disturbances/hypomag/hypokalemia likely 2nd to alchol use Banana bag in ER, additional IVF for CTAP findings PRBC, IVF hydration and BUn/Cr normalized 16/0.86 and IVF discontinued Avoid NSAIDs, avoid nephrotoxins, renal dose meds as able UA did not appear infected Monitor BMP ASIYA resolved (4) Alcohol abuse: Plan: Etoh 107 on admission, 2-3beers/daily w/ heavy NSAID use s/p banana bag, continue thiamine/folic acid. B12 not deficient IVF, NaHCO3 PO ordered, CO normalized Na stable 137 (126 on admit, seizure precautions in place) Telemetry monitoring, AWSS, no evidence for DTs but did order 0.5mg PO Ativan for anxiety daily. remains on BuSpar. No SI/HI. (5) Iron deficiency: Plan: iron studies NOT deficient, ferritin actually elevated and suspect 2nd to alcohol use/elevation on admission DOES NEED EGD/C-SCOPE IN OUTPT f/u unless acute bleeding witnessed to prompt inpatient eval again denies blood in stool but did have POSITIVE fecal occult testing but moving bowels/brown in color reported. Monitor hgb as above (6) Vitamin D deficiency: Plan: Checked given baseline nutritional status -- LOW 19.8, replacement ordered. Should continue at dc Plan Repleted magnesium Discussed case with case management Updated patient's sister, Miranda, via phone call Chronic stable conditions: Anxiety and depression- Continue buspirone, fluoxetine trazodone not continued for now, ativan available w/ AWSS as above. Chronic back pain- Discontinued further NSAIDs, topical voltaren ordered discontinued given risk for bleeding, fecal occult testing negative Oxycodone 5mg PRN CODE STATUS: Full code Admission and Anticipated Discharge Date Admission Date: October 04, 2023 Subjective Patient seen and evaluated at bedside. He reports that he is tired today as he did not sleep well last night. He notes his appetite has improved. Denies nausea, vomiting, abdominal pain, diarrhea. He reports his chronic neck/back pain is controlled with medication. He has no additional complaints at this time. Physical Exam Physical Exam: General: No acute distress, nondiaphoretic. General pallor. Skin: The skin was without rashes, erythema, edema, or bruising. Cardiac: Regular rate and rhythm. Faint systolic murmur. Pulm: Clear to auscultation bilaterally without wheezes, rales or rhonchi. Slightly diminished breath sounds at bases. No respiratory distress. 98% on room air. Abdominal: Soft, nontender, nondistended. Bowel sounds present. Neuro: A&O x3. No focal neurological deficits. Results & Data Results & Data Vital Signs (Past 12 Hours) Vital Signs Temp Pulse Pulse Resp BP Pulse Ox O2 Del Method 10/11/23 07:36 36.8 C 82 16 95/67 L 98 Room Air 10/11/23 02:33 36.9 C 100 H 18 92/61 L 96 Room Air 10/10/23 23:18 94 H Laboratory Results Reviewed CBC Reviewed CMP PG Care Time/CCT Total # of Minutes Spent Total Time Spent with Patient: Total time spent is greater than 50% in coordination of care (as documented) at patient's floor/unit and/or counseling patient: Coding Level of Care Code 66042 SUB INP/OBS CARE 3/50MIN Diagnoses High serum carbohydrate antigen 19-9 (CA19-9) R79.89 Anemia D64.9 Anemia type: unspecified type Acute kidney injury N17.9 Alcohol abuse F10.10 Iron deficiency E61.1 Vitamin D deficiency E55.9 (2) Anemia Anemia type: unspecified type Qualified Code(s): D64.9 - Anemia, unspecified
[2023-10-12] MEDS: LORazepam 0.5 MG TAB PO STA ×2 (01:21→22:55)
[2023-10-12 06:13] LABS: Hematocrit (blood only) 21.1 % (42.0-52.0); Hemoglobin 7.3 g/dl (14.0-18.0); Mean Corpuscular Hemoglobin 34.3 pg (25.0-34.0); Mean Corpuscular Hgb Conc 34.6 g/dL (32.0-36.0); Mean Corpuscular Volume 99.1 fL (80.0-100.0); Mean Platelet Volume 10.6 fL (9.4-12.4); Platelet Count 220 K/uL (130-400); RDW Coefficient of Variation 15.3 % (11.5-14.5); RDW Standard Deviation 55.8 fL (36.4-46.3); Red Blood Count 2.13 M/uL (4.70-6.10); White Blood Count 7.48 K/ul (4.8-10.8)
[2023-10-12 06:44] LABS: Albumin Globulin Ratio 0.7 (0.9-2); BUN Creatinine Ratio 12.7 (10-20); Bilirubin,Total 0.6 mg/dl (0.2-1.0); Creatinine Clr Calc Pharmacy 121.8 ml/min; Est GFR (African American) 130.4 ml/min; Est GFR (Non-African American) 112.5 ml/min; Globulin 2.7 gm/dl (2.5-4.0); Magnesium 1.5 mg/dl (1.7-2.4); Potassium 3.7 mmol/L (3.5-5.1); Total Protein 4.7 gm/dl (6.0-8.3)
[2023-10-12] MEDS ORDERED: SODIUM CHLORIDE 0.9% 250 ML IV PRN (09:40)
[2023-10-12] MEDS: MAGNESIUM SULFATE / D5W 1 GM/100 ML BAG IV SCH (13:36)
--- NOTE | 2023-10-12 13:37 | Hospitalist Progress Note ---
Date of Service October 12, 2023 Assessment & Plan (1) High serum carbohydrate antigen 19-9 (CA19-9): Plan: CTAP obtained, CTAP noting acute pancreatitis w/ acute peripancreatic collections, hepatic steatosis, trace b/l effusions - Lipase NOT elevated, suspect chronic/pseudocyst per GI who was consulted - Per GI, given hemodynamically stable w/ brown bowel movements, plan for outpt EGD/c-scope - Creon continued for pancreatic insufficiency Continues on Protonix BID, Carafate QID. Tolerating low-fat diet CA 199 was markedly elevated at 336. Pancreatic fluid collection and a possible IPMN, suspicious for malignancy in view of this markedly elevated CA 199. GI recommended transfer for inpatient EUS. Transfer attempted to [facility], [facility], and [facility], however they all denied transfer. Will continue with management at [facility] with close outpatient follow-up at pancreaticobiliary center for EUS, EGD, and colonoscopy. Discussed case with Dr. Powell from [facility] 10/12/23, who will perform OP EUS with [employer] drainage of pseudocyst and evaluate the remaining pancreas - likely next week. His office will call patient with appointment details. (2) Anemia: Plan: Anemia/protein calorie malnutrition- Hgb 7.5 on admission w/ albumin 1.9, INR 1.4. - Hemoccult negative in ER but POSITIVE ON REPEAT. Iron studies w/ elevations > ?reactive from alcohol use (alcohol level 107 on admit, 2-3beers/daily reported). - B12/folate without deficiency but remains on thiamine/folate supplementation given alcohol use. TSH wnl 1.7 - Type/screen and consent obtained on admission, MELD score 18 - Hgb 7.5 --> 6.7 on repeat but did get 2L IVF but given ASIYA and SOB/weakness ordered PRBC for transfusion - S/p 2u PRBC, IVF for ASIYA on admit - Hbg dropped to 7/3 with hypotension 10/12/23. Ordered 1u PRBC. Will recheck labs in AM. Hypomagnesemia, despite recurrent repletion Mag 1.5 on 10/12/2023. Ordered 4 bags of IV magnesium repletion Continue oral mag supplementation twice daily Consulted Nephrology for hyperchloremic metabolic acidosis with refractory hypomagnesemia. (3) Acute kidney injury: Plan: Cr 2.19 on admission w/ electrolyte disturbances/hypomag/hypokalemia likely 2nd to alchol use Banana bag in ER, additional IVF for CTAP findings PRBC, IVF hydration and BUn/Cr normalized 16/0.86 and IVF discontinued Avoid NSAIDs, avoid nephrotoxins, renal dose meds as able UA did not appear infected Monitor BMP ASIYA resolved (4) Alcohol abuse: Plan: Etoh 107 on admission, 2-3beers/daily w/ heavy NSAID use s/p banana bag, continue thiamine/folic acid. B12 not deficient IVF, NaHCO3 PO ordered, CO normalized Na stable 137 (126 on admit, seizure precautions in place) Telemetry monitoring, AWSS, no evidence for DTs but did order 0.5mg PO Ativan for anxiety daily. remains on BuSpar. No SI/HI. (5) Iron deficiency: Plan: iron studies NOT deficient, ferritin actually elevated and suspect 2nd to alcohol use/elevation on admission DOES NEED EGD/C-SCOPE IN OUTPT f/u unless acute bleeding witnessed to prompt inpatient eval again denies blood in stool but did have POSITIVE fecal occult testing but moving bowels/brown in color reported. Monitor hgb as above (6) Vitamin D deficiency: Plan: Checked given baseline nutritional status -- LOW 19.8, replacement ordered. Should continue at dc Plan Repleted magnesium Ordered 1u PRBC Discussed case with GI specialist and case management Consulted nephrology Updated patient's sister, Miranda, via phone call Chronic stable conditions: Anxiety and depression- Continue buspirone, fluoxetine trazodone not continued for now, ativan available w/ AWSS as above. Chronic back pain- Discontinued further NSAIDs, topical voltaren ordered discontinued given risk for bleeding, fecal occult testing negative Oxycodone 5mg PRN CODE STATUS: Full code Admission and Anticipated Discharge Date Admission Date: October 04, 2023 Subjective Patient seen and evaluated at bedside. He reports that he does not feel well today. He is hypotensive with Hgb 7.3 today, so 1 unit of blood was ordered and currently being transfused at the time of my evaluation. Patient notes he feels tired and weak. No change in his magnesium despite both IV and oral repletion yesterday. He notes that nephrology saw the patient earlier this morning, but could not recall the details of their conversation. Will review nephro's recommendations when their note is entered. Patient denies abdominal pain, nausea, vomiting, or diarrhea. Denies blood in urine or stool. Denies lightheadedness, dizziness, shortness of breath, or chest pain. Physical Exam Physical Exam: General: No acute distress, nondiaphoretic. General pallor. Skin: The skin was without rashes, erythema, edema, or bruising. Cardiac: Regular rate and rhythm. Faint systolic murmur. Pulm: Clear to auscultation bilaterally without wheezes, rales or rhonchi. Slightly diminished breath sounds at bases. No respiratory distress. 98% on room air. Abdominal: Soft, nontender, nondistended. Bowel sounds present. Neuro: A&O x3. No focal neurological deficits. Results & Data Results & Data Vital Signs (Past 12 Hours) Vital Signs Temp Pulse Pulse Resp BP BP BP 10/12/23 12:44 36.9 C 105 H 17 97/70 L 10/12/23 12:14 37.0 C 104 H 18 99/71 L 10/12/23 11:59 36.7 C 105 H 18 99/72 L 10/12/23 11:39 36.9 C 102 H 17 96/69 L 10/12/23 11:14 36.8 C 104 H 16 91/67 L 10/12/23 07:26 36.6 C 97 H 16 94/68 L 10/12/23 03:11 36.5 C 100 H 18 101/71 Pulse Ox O2 Del Method 10/12/23 12:44 99 10/12/23 12:14 100 10/12/23 11:59 99 10/12/23 11:39 99 10/12/23 11:14 100 Room Air 10/12/23 07:26 98 Room Air 10/12/23 03:11 97 Room Air Laboratory Results Reviewed CBC Reviewed CMP PG Care Time/CCT Total # of Minutes Spent Total Time Spent with Patient: Total time spent is greater than 50% in coordination of care (as documented) at patient's floor/unit and/or counseling patient: Coding Level of Care Code 15739 SUB INP/OBS CARE 3/50MIN Diagnoses High serum carbohydrate antigen 19-9 (CA19-9) R79.89 Anemia D64.9 Anemia type: unspecified type Acute kidney injury N17.9 Alcohol abuse F10.10 Iron deficiency E61.1 Vitamin D deficiency E55.9 (2) Anemia Anemia type: unspecified type Qualified Code(s): D64.9 - Anemia, unspecified
--- NOTE | 2023-10-12 14:08 | Gastroenterology Progress Note ---
Date of Service October 12, 2023 Assessment & Plan (1) Anemia: Plan: 52 year old male with history of ongoing ETOH abuse, alcohol withdrawal, alcoholic pancreatitis, folate deficiency, B12 deficiency, iron deficiency, depression, hypertension, tobacco use disorder and lumbar radiculopathy admitted through the ED w/ weakness - drop in HGB w/o apparent GI bleeding. S/P RBCs 1 unit this AM. His anemia is likely multifactorial. Recommend PO PPI BID for 1 month then PO PPI once daily. Trend H&H. Monitor and document GI output. Transfuse PRN per primary service. Check iron studies, ferritin. Recommend OP EGD/Colonoscopy. MRI pancreas w/ 10.2 x 8.4 x 7.1 cm multiloculated fluid collection with internal thin septations extending circumferentially along the anterior margin of the splenic hilum in about the proximal stomach w/o internal solid nodular components. There is also a report of a tubular fluid structure involving the head and neck of the pancreas measuring up to 1.3 cm by 4 cm in length w/ subtle communication between the proximal pancreatic duct and the cystic structure is difficult to evaluate with respiratory artifact on nearly all imaging sequences. There is also a gallstone noted in the gallbladder without gallbladder wall thickening or biliary dilatation. His CA 19-9 returned elevated. He was not accepted for transfer at tertiary center. Please arrange OP follow up with a pancreatobiliary center who is capable of EUS. This will need to be completed within 1-2 weeks. He will need a CT Scan in about 4-6 weeks to re-assess the fluid collection as well. Encouraged intermediate card tender ETOH cessation, tobacco cessation. Limit NSAIDs. Recall as needed. Thank you for allowing us to participate in the care of this patient. Please call with any acute changes, questions or concerns. Please see addendum below with additional recommendation from my supervising physician. I spent a total of 40 minutes on the date of service in review of patient's record, and previously obtained information in person and appropriate medical visit, discussion and education of plan, with patient and/or caregiver, placing orders for tests/referral/procedures as medically necessary and documentation of pertinent clinical information in patient's medical records for their visit today Admission and Anticipated Discharge Date Admission Date: October 04, 2023 Supervising Physician Co-Signing Physician Notes I examined the patient and reviewed the medical record, laboratory data and imaging studies. I agree with the assessment and plan of care as suggested by the advanced practice provider. Patient appears comfortable but he appears a little depressed today as compared to before his hemoglobin fell today but there is no evidence of GI bleeding I did a rectal exam in the rectal vault was empty he had did not have a bowel movement today and his last bowel movement was yesterday and he did not complain of melena or hematochezia in that assessment plan 1. anemia No evidence of GI bleeding will need endoscopic evaluation once the issue of pancreatic malignancy is resolved he is supposed to undergo an EUS next week and hence will be having an EGD at that time also would keep on PPI in the meantime and monitor H&H every 12 hours 2 suspected pancreatic cancer As per hospitalist note he is scheduled to undergo an EUS with possible [facility] next week agree with that plan and patient needs evaluation as his CA 19-9 is markedly elevated Thank you for allowing us to take part in the care of your patient we will continue to follow him with you Subjective Pt was seen and evaluated, chart reviewed. Symptoms unchanged. Tolerating diet. Last BM was yesterday. He reports this was normal. No black or bloody stools. Drop in HGB 1 pt RBC transfused x 1 unit Attending performed rectal examination at 1400. Exam was proctored by me. Review of Systems Review of Systems: All other findings negative except as noted in HPI. Physical Exam Constitutional: WD/WN, vitals as above Respiratory: normal respiratory effort Cardiovascular: Rate/Rhythm: regular rate Gastrointestinal (Abdomen): normal bowel sounds, soft, nontender, no hepatosplenomegaly Skin: no rashes, warm and dry Results & Data Results & Data Vital Signs (Past 12 Hours) Vital Signs Temp Pulse Pulse Resp BP BP BP 10/12/23 13:44 36.8 C 96 H 17 93/63 L 10/12/23 12:44 36.9 C 105 H 17 97/70 L 10/12/23 12:14 37.0 C 104 H 18 99/71 L 10/12/23 11:59 36.7 C 105 H 18 99/72 L 10/12/23 11:39 36.9 C 102 H 17 96/69 L 10/12/23 11:14 36.8 C 104 H 16 91/67 L 10/12/23 07:26 36.6 C 97 H 16 94/68 L 10/12/23 03:11 36.5 C 100 H 18 101/71 Pulse Ox O2 Del Method 10/12/23 13:44 99 10/12/23 12:44 99 10/12/23 12:14 100 10/12/23 11:59 99 10/12/23 11:39 99 10/12/23 11:14 100 Room Air 10/12/23 07:26 98 Room Air 10/12/23 03:11 97 Room Air Laboratory Results 10/12/23 10/12/23 Range/Units 09:46 05:17 WBC 7.48 (4.8-10.8) K/ul RBC 2.13 L (4.70-6.10) M/uL Hgb 7.3 L (14.0-18.0) g/dl Hct 21.1 L (42.0-52.0) % MCV 99.1 (80.0-100.0) fL MCH 34.3 H (25.0-34.0) pg MCHC 34.6 (32.0-36.0) g/dL RDW Std Deviation 55.8 H (36.4-46.3) fL RDW Coeff of Arturo 15.3 H (11.5-14.5) % Plt Count 220 (130-400) K/uL MPV 10.6 (9.4-12.4) fL Sodium 133 L (136-145) mmol/L Potassium 3.7 (3.5-5.1) mmol/L Chloride 109 H (98-107) mmol/L Carbon Dioxide 20 L (21-32) mmol/L Anion Gap 4 (3-11) BUN 8 (6-23) mg/dl Creatinine 0.63 (0.6-1.4) mg/dl Est Cr Clr Drug Dosing 121.8 ml/min Est GFR ( Amer) 130.4 ml/min Est GFR (Non-Af Amer) 112.5 ml/min BUN/Creatinine Ratio 12.7 (10-20) Glucose 89 (70-99(Fasting)) mg/dl Calcium 7.0 L (8.6-10.3) mg/dl Magnesium 1.5 L (1.7-2.4) mg/dl Total Bilirubin 0.6 (0.2-1.0) mg/dl AST 25 (13-39) U/L ALT 16 (7-52) U/L Alkaline Phosphatase 137 H (34-104) U/L Total Protein 4.7 L (6.0-8.3) gm/dl Albumin 2.0 L (3.4-5.0) gm/dl Globulin 2.7 (2.5-4.0) gm/dl Albumin/Globulin Ratio 0.7 L (0.9-2) Blood Type O Positive Antibody Screen NEGATIVE Crossmatch See Detail PG Care Time/CCT Total # of Minutes Spent Total Time Spent with Patient: Total time spent is greater than 50% in coordination of care (as documented) at patient's floor/unit and/or counseling patient: Coding Level of Care Code 87344 SUB INP/OBS CARE 2/35MIN Diagnoses Anemia D64.9 Anemia type: unspecified type (1) Anemia Anemia type: unspecified type Qualified Code(s): D64.9 - Anemia, unspecified
--- NOTE | 2023-10-12 14:42 | Nephrology Consultation ---
Date of Consultation October 12, 2023 Assessment & Plan (1) Metabolic acidosis: (2) Hypomagnesemia: (3) Hypokalemia: (4) Acute alcoholic pancreatitis: (5) Weakness: Plan 52 yo M with history of alcohol abuse complicated by alcoholic pancreatitis, anemia, multiple electrolyte abnormality and ASIYA on admission. Acute kidney injury resolved. Hypokalemia and hypomagnesemia improved. Hyperchloremic metabolic acidosis with urine pH around 6-7.5, bicarb was 16 which improved to a round 19-20 over last few days. Non gap metabolic acidosis with urine pH above 6 and hypokalemia, could be secondary to type I ( distal) renal tubular acidosis although no offending medication to blame. -- Check urine anion gap -- Start on sodium bicarbonate 650 mg twice a day -- Check electrolyte including magnesium Thank you for allowing me to participate in your patient's care. It was a plea sure to see Uday. History of Present Illness Reason for Consultation: Metabolic acidosis Attending Physician: Samy Ham MD History of Present Illness Uday Smith is a 52-year-old male with history of alcohol abuse and alcoholic pancreatitis, admitted to hospital with generalized weakness and decreased p.o. intake. Nephrology consult was requested for management of persistent non gap metabolic acidosis. Electronic medical records are reviewed in detail during patient's visit. Uday was admitted to the hospital on 10/03/2023 after he presented to ER with generalized weakness, weight loss and decreased appetite. He also has been having exertional dyspnea with history of anemia for last few months. He reports having diarrhea for last few months which slightly improved since admission. On admission he was noted to have ASIYA with creatinine 2.2 which rapidly improved with IV hydration. Admission lab was also notable for nongap metabolic acidosis, hypokalemia and hypomagnesemia. Bicarbonate was 16 which slowly improved to around 20 over last few days. Magnesium improved to 1.5 and magnesium supplement. Potassium improved from 3.2 to 3.5. Urine pH was around 6.5-7. Chest x-ray was unremarkable. Lab was concerning for significantly elevated CA 19-9, raising concern for pancreatic cancer, MRI abdomen was definite event plan for endoscopic ultrasonography and biopsy after discharge. Has seen by GI and plan to do EGD and colonoscopy as an outpatient. During visit he denied any specific symptoms but overall looked pale. Blood pressure has been relatively low. Diarrhea resolved, denies nausea or vomiting. Allergies Allergy/AdvReac Type Severity Reaction Status Date / Time No Known Allergies Allergy Verified 10/03/23 22:48 Home Medications Medication Instructions Recorded Confirmed Type multivitamin 1 tab PO DAILY 08/13/21 10/03/23 History ibuprofen 200 mg tablet (Advil) 400 mg PO Q6H PRN Pain 01/11/23 10/03/23 History metoprolol succinate 25 mg 25 mg PO QAM 01/11/23 10/03/23 History tablet,extended release 24 hr folic acid 1 mg tablet 1 mg PO DAILY #90 tabs 02/12/23 10/03/23 Rx pantoprazole 40 mg tablet,delayed 40 mg PO QAM #90 tabs 02/19/23 10/03/23 Rx release fluoxetine 40 mg capsule 40 mg PO DAILY #90 caps 02/20/23 10/03/23 Rx thiamine HCl (vitamin B1) 100 mg 100 mg PO QAM #90 tabs 03/28/23 10/03/23 Rx tablet magnesium oxide 400 mg PO DAILY #90 caps 04/27/23 10/03/23 Rx trazodone 50 mg tablet 50 mg PO HS #90 tabs 06/12/23 10/03/23 Rx buspirone 10 mg tablet 10 mg PO TID 90 days #270 tabs 08/02/23 10/03/23 Rx cholecalciferol (vitamin D3) 125 125 mcg PO QAM #30 tabs 10/08/23 Rx mcg (5,000 unit) tablet pantoprazole 40 mg tablet,delayed 40 mg PO BID #60 tabs 10/08/23 Rx release sucralfate 100 mg/mL oral 1 g (10 mL) PO QID 2 weeks #560 mL 10/08/23 Rx suspension Patient History Medical History Acute blood loss anemia Alcohol intoxication Alcohol withdrawal 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 Chronic alcohol use GI bleed Hypertension Hypertensive urgency Hypokalemia Hyponatremia Left foot drop Metabolic acidosis Nausea Pancreatitis Sensory polyneuropathy Smokes 1 pack of cigarettes per day Surgical History No pertinent past surgical history Family History Other Adopted Social History Smoking Status: Current every day smoker Tobacco Type: Cigarettes packs per day: 1; Cigarettes Per Day: 1 PPD; Second Hand Exposure: No; Do You Dip or Chew Tobacco: No; Hx Alcohol Use: Yes Alcohol type: beer Alcohol Intake Frequency Comment: 1/2 to one 5th of vodka daily, some beer Hx Substance Use: No Preferred Language: Greek Communication Ability: Effective Visual Impairment: No Limitations Hearing Ability: Normal Embalmer Assistant Required: No Beliefs That Will Affect Care: None marital status: Single Current Living Situation: Alone current occupational status: previously employed current occupation: Recently lost job working in an [email or web address] service How many Children do You have: 0 Feels Safe at Home: Yes Childhood Exposure to Second-Hand Smoke: Yes Diet: regular Dental Care, Regularly: No Physical Activity Frequency: Does not Exercise Seatbelt Use: always Sunscreen Use: No Assistive Devices: Cane and Walker Review of Systems Review of Systems: Detailed review of system was done, pertinent positives and negatives are mentioned above. Physical Exam Constitutional: WD/WN, vitals as above no acute distress Eyes: + anicteric sclerae Respiratory: Auscultation: lungs clear to auscultation bilaterally Cardiovascular: RRR, no murmur, no edema Gastrointestinal (Abdomen): Inspection/Auscultation: abdomen normal to inspection Musculoskeletal: Extremities: extremities normal to inspection Psychiatric: Orientation: alert and oriented x 3 Affect: euthymic affect Results & Data Vital Signs (Past 12 Hours) Vital Signs Temp Pulse Pulse Resp BP BP BP 10/12/23 13:44 36.8 C 96 H 17 93/63 L 10/12/23 12:44 36.9 C 105 H 17 97/70 L 10/12/23 12:14 37.0 C 104 H 18 99/71 L 10/12/23 11:59 36.7 C 105 H 18 99/72 L 10/12/23 11:39 36.9 C 102 H 17 96/69 L 10/12/23 11:14 36.8 C 104 H 16 91/67 L 10/12/23 07:26 36.6 C 97 H 16 94/68 L 10/12/23 03:11 36.5 C 100 H 18 101/71 Pulse Ox O2 Del Method 10/12/23 13:44 99 10/12/23 12:44 99 10/12/23 12:14 100 10/12/23 11:59 99 10/12/23 11:39 99 10/12/23 11:14 100 Room Air 10/12/23 07:26 98 Room Air 10/12/23 03:11 97 Room Air PG Care Time/CCT Total # of Minutes Spent Total Time Spent with Patient: Total time spent is greater than 50% in coordination of care (as documented) at patient's floor/unit and/or counseling patient: Coding Level of Care Code 26575 INT INP/OBS CARE 3/75MIN Diagnoses Metabolic acidosis E87.2 Hypomagnesemia E83.42 Hypokalemia E87.6 Alcohol-induced acute pancreatitis without infection or necrosis K85.20 Acute pancreatitis complication: no infection or necrosis Weakness R53.1 (4) Acute alcoholic pancreatitis Acute pancreatitis complication: no infection or necrosis Qualified Code(s): K85.20 - Alcohol induced acute pancreatitis without necrosis or infection
[2023-10-12 16:59] LABS: Anion Gap 4 (3-11); BUN Creatinine Ratio 16.1 (10-20); Blood Urea Nitrogen 9 mg/dl (6-23); Calcium 7.3 mg/dl (8.6-10.3); Carbon Dioxide 19 mmol/L (21-32); Chloride 107 mmol/L (98-107); Est GFR (African American) 136.9 ml/min; Est GFR (Non-African American) 118.1 ml/min; Glucose 110 mg/dl (70-99(Fasting)); Potassium 3.7 mmol/L (3.5-5.1); Sodium 130 mmol/L (136-145)
[2023-10-12 17:01] LABS: Albumin Level 2.2 gm/dl (3.4-5.0); Phosphorus < 1.0 mg/dl (2.5-4.9)
[2023-10-12] MEDS ORDERED: SODIUM PHOSPHATE 3 MMOL/1 ML INFUSION IV STA (17:36)
[2023-10-12] MEDS: SODIUM PHOSPHATE 24 MMOL in SODIUM CHLORIDE 0.9% 500 ML IV ONE (18:22)
[2023-10-12] MEDS: SODIUM BICARBONATE 650 MG TAB PO SCH (20:16)
[2023-10-13 07:49] LABS: Mean Corpuscular Hemoglobin 33.1 pg (25.0-34.0); Mean Corpuscular Hgb Conc 33.3 g/dL (32.0-36.0); Mean Corpuscular Volume 99.3 fL (80.0-100.0); Mean Platelet Volume 10.5 fL (9.4-12.4); Platelet Count 263 K/uL (130-400); RDW Coefficient of Variation 18.3 % (11.5-14.5); RDW Standard Deviation 67.2 fL (36.4-46.3); Red Blood Count 2.72 M/uL (4.70-6.10); White Blood Count 7.79 K/ul (4.8-10.8)
[2023-10-13 08:03] LABS: Albumin Globulin Ratio 0.7 (0.9-2); Albumin Level 2.2 gm/dl (3.4-5.0); BUN Creatinine Ratio 14.3 (10-20); Bilirubin,Total 0.8 mg/dl (0.2-1.0); Calcium 7.1 mg/dl (8.6-10.3); Creatinine Clr Calc Pharmacy 152.1 ml/min; Est GFR (African American) 136.9 ml/min; Est GFR (Non-African American) 118.1 ml/min; Magnesium 1.6 mg/dl (1.7-2.4); Potassium 3.8 mmol/L (3.5-5.1); Total Protein 5.2 gm/dl (6.0-8.3)
--- NOTE | 2023-10-13 11:06 | Nephrology Progress Note ---
Date of Service October 13, 2023 Assessment & Plan (1) Metabolic acidosis: (2) Hypomagnesemia: (3) Hypokalemia: (4) Acute alcoholic pancreatitis: (5) Weakness: Plan 52 yo M with history of alcohol abuse complicated by alcoholic pancreatitis, chronic diarrhea anemia, multiple electrolyte abnormality and ASIYA on admission. Acute kidney injury resolved. Hypokalemia and hypomagnesemia improved. Hyperchloremic metabolic acidosis with urine pH around 6-7.5, bicarb was 16 which improved to around 19-20 over last few days. Non gap metabolic acidosis with urine pH above 6 and hypokalemia and positive U AG, could be secondary to renal tubular acidosis although no offending medication to blame or clear etiology. -- continue on sodium bicarbonate 650 mg twice a day -- encouraged high K diet Admission and Anticipated Discharge Date Admission Date: October 04, 2023 Delfino Frye was seen this morning. He reports feeling well but had an episode of anxiety attack last night but feeling better now. Electrolytes slightly improved, received sodium phosphate last night for critical hypophosphatemia. Blood pressure low but relatively stable. Reports decent p.o. intake. Review of Systems Review of Systems: Detailed review of system was otherwise unremarkable. Physical Exam Constitutional: WD/WN, vitals as above no acute distress Respiratory: Auscultation: lungs clear to auscultation bilaterally Cardiovascular: RRR, no murmur, no edema Musculoskeletal: Extremities: extremities normal to inspection Psychiatric: Orientation: alert and oriented x 3 Affect: euthymic affect Results & Data Vital Signs (Past 12 Hours) Vital Signs Temp Pulse Pulse Resp BP BP Pulse Ox 10/13/23 08:15 36.8 C 102 H 16 103/72 98 10/13/23 02:36 36.8 C 97 H 17 97/67 L 97 10/12/23 22:45 36.4 C L 104 H 16 105/75 97 O2 Del Method 10/13/23 08:15 Room Air 10/13/23 02:36 Room Air 10/12/23 22:45 Room Air PG Care Time/CCT Total # of Minutes Spent Total Time Spent with Patient: Total time spent is greater than 50% in coordination of care (as documented) at patient's floor/unit and/or counseling patient: Coding Level of Care Code 62718 SUB INP/OBS CARE 2/35MIN Diagnoses Metabolic acidosis E87.2 Hypomagnesemia E83.42 Hypokalemia E87.6 Alcohol-induced acute pancreatitis without infection or necrosis K85.20 Acute pancreatitis complication: no infection or necrosis Weakness R53.1 (4) Acute alcoholic pancreatitis Acute pancreatitis complication: no infection or necrosis Qualified Code(s): K85.20 - Alcohol induced acute pancreatitis without necrosis or infection
[2023-10-13] MEDS: LORazepam 2 MG in SYRINGE 1 ML IV STA (18:40)
--- NOTE | 2023-10-13 19:33 | Hospitalist Progress Note ---
Date of Service October 13, 2023 Assessment & Plan (1) High serum carbohydrate antigen 19-9 (CA19-9): Plan: CTAP obtained, CTAP noting acute pancreatitis w/ acute peripancreatic collections, hepatic steatosis, trace b/l effusions - Lipase NOT elevated, suspect chronic/pseudocyst per GI who was consulted - Per GI, given hemodynamically stable w/ brown bowel movements, plan for outpt EGD/c-scope - Creon continued for pancreatic insufficiency Continues on Protonix BID, Carafate QID. Tolerating low-fat diet CA 199 was markedly elevated at 336. Pancreatic fluid collection and a possible IPMN, suspicious for malignancy in view of this markedly elevated CA 199. GI recommended transfer for inpatient EUS. Transfer attempted to [facility] [address], [facility], and [facility], however they all denied transfer. Will continue with management at [facility] with close outpatient follow-up at pancreaticobiliary center for EUS, EGD, and colonoscopy. Discussed case with Dr. Powell from [facility] 10/12/23, who will perform OP EUS with [facility] drainage of pseudocyst and evaluate the remaining pancreas - likely next week. His office will call patient with appointment details. (2) Anemia: Plan: Anemia/protein calorie malnutrition- Hgb 7.5 on admission w/ albumin 1.9, INR 1.4. - Hemoccult negative in ER but POSITIVE ON REPEAT. Iron studies w/ elevations > ?reactive from alcohol use (alcohol level 107 on admit, 2-3beers/daily reported). - B12/folate without deficiency but remains on thiamine/folate supplementation given alcohol use. TSH wnl 1.7 - Type/screen and consent obtained on admission, MELD score 18 - Hgb 7.5 --> 6.7 on repeat but did get 2L IVF but given ASIYA and SOB/weakness ordered PRBC for transfusion - S/p 2u PRBC, IVF for ASIYA on admit - Hbg dropped to 7.3 with hypotension 10/12/23. Ordered 1u PRBC. > Hgb augmented appropriately to 9.0 on 10/12. Hypomagnesemia, despite recurrent repletion Mag 1.5 on 10/12/2023. Ordered 4 bags of IV magnesium repletion Continue oral mag supplementation twice daily Consulted Nephrology for hyperchloremic metabolic acidosis with refractory hypomagnesemia. > Continue sodium bicarbonate 650 mg twice daily. > Received sodium phosphate due to critical hypophosphatemia with Phos<1 on 10/12/2023. (3) Acute kidney injury: Plan: Cr 2.19 on admission w/ electrolyte disturbances/hypomag/hypokalemia likely 2nd to alchol use Banana bag in ER, additional IVF for CTAP findings PRBC, IVF hydration and BUn/Cr normalized 16/0.86 and IVF discontinued Avoid NSAIDs, avoid nephrotoxins, renal dose meds as able UA did not appear infected Monitor BMP ASIYA resolved (4) Alcohol abuse: Plan: Etoh 107 on admission, 2-3beers/daily w/ heavy NSAID use s/p banana bag, continue thiamine/folic acid. B12 not deficient IVF, NaHCO3 PO ordered, CO normalized Na stable 137 (126 on admit, seizure precautions in place) Telemetry monitoring, AWSS, no evidence for DTs but did order 0.5mg PO Ativan for anxiety daily. remains on BuSpar. No SI/HI. Evening of 10/12, patient had increased anxiety and tremors. PO Ativan did not help. One time dose Ativan 2 mg IV given. (5) Iron deficiency: Plan: iron studies NOT deficient, ferritin actually elevated and suspect 2nd to alcohol use/elevation on admission DOES NEED EGD/C-SCOPE IN OUTPT f/u unless acute bleeding witnessed to prompt inpatient eval again denies blood in stool but did have POSITIVE fecal occult testing but moving bowels/brown in color reported. Monitor hgb as above (6) Vitamin D deficiency: Plan: Checked given baseline nutritional status -- LOW 19.8, replacement ordered. Should continue at dc Plan Ordered one-time IV Ativan due to increased anxiety and tremors Chronic stable conditions: Anxiety and depression- Continue buspirone, fluoxetine trazodone not continued for now, ativan available w/ AWSS as above. Chronic back pain- Discontinued further NSAIDs, topical voltaren ordered discontinued given risk for bleeding, fecal occult testing negative Oxycodone 5mg PRN CODE STATUS: Full code Admission and Anticipated Discharge Date Admission Date: October 04, 2023 Subjective Patient seen and evaluated at bedside. He reports that he is feeling okay. We discussed that his hemoglobin responded appropriately and his electrolytes slightly improved. He did receive sodium phosphate last night for critical hypophosphatemia. His blood pressures have been low, but stable. Patient denies any lightheadedness, dizziness, near syncope. In the evening, nursing reported patient complained of feeling anxious and had tremors. Given he has been admitted for 9 days now, alcohol withdrawal is less likely though not impossible. It is more likely that this is due to anxiety. Per nursing, oral Ativan did not help and anxiety/tremors have worsened. One- time dose of IV Ativan given. Physical Exam Physical Exam: General: No acute distress, nondiaphoretic. General pallor. Skin: The skin was without rashes, erythema, edema, or bruising. Cardiac: Regular rate and rhythm. Faint systolic murmur. Pulm: Clear to auscultation bilaterally without wheezes, rales or rhonchi. Slightly diminished breath sounds at bases. No respiratory distress. 98% on room air. Abdominal: Soft, nontender, nondistended. Bowel sounds present. Neuro: A&O x3. No focal neurological deficits. Results & Data Results & Data Vital Signs (Past 12 Hours) Vital Signs Temp Pulse Pulse Resp BP Pulse Ox O2 Del Method 10/13/23 19:11 36.8 C 104 H 19 93/62 L 98 Room Air 10/13/23 17:50 115 H 20 100/71 99 Room Air 10/13/23 16:59 37.1 C 105 H 20 99/70 L 99 Room Air 10/13/23 15:39 37.3 C 91 H 16 99/69 L 100 Room Air 10/13/23 14:00 97 H 10/13/23 11:32 36.9 C 90 16 100/70 99 Room Air 10/13/23 08:15 36.8 C 102 H 16 103/72 98 Room Air 10/13/23 08:00 82 Laboratory Results Reviewed CBC Reviewed CMP PG Care Time/CCT Total # of Minutes Spent Total Time Spent with Patient: Total time spent is greater than 50% in coordination of care (as documented) at patient's floor/unit and/or counseling patient: Coding Level of Care Code 36899 SUB INP/OBS CARE 2/35MIN Diagnoses High serum carbohydrate antigen 19-9 (CA19-9) R79.89 Anemia D64.9 Anemia type: unspecified type Acute kidney injury N17.9 Alcohol abuse F10.10 Iron deficiency E61.1 Vitamin D deficiency E55.9 (2) Anemia Anemia type: unspecified type Qualified Code(s): D64.9 - Anemia, unspecified
[2023-10-14 07:55] LABS: Hematocrit (blood only) 23.8 % (42.0-52.0); Mean Corpuscular Hemoglobin 33.2 pg (25.0-34.0); Mean Corpuscular Hgb Conc 33.6 g/dL (32.0-36.0); Mean Corpuscular Volume 98.8 fL (80.0-100.0); Mean Platelet Volume 10.6 fL (9.4-12.4); Platelet Count 265 K/uL (130-400); RDW Coefficient of Variation 17.8 % (11.5-14.5); RDW Standard Deviation 65.3 fL (36.4-46.3); Red Blood Count 2.41 M/uL (4.70-6.10); White Blood Count 6.29 K/ul (4.8-10.8)
[2023-10-14 08:11] LABS: Albumin Globulin Ratio 0.7 (0.9-2); BUN Creatinine Ratio 14.3 (10-20); Bilirubin,Total 0.6 mg/dl (0.2-1.0); Calcium 7.3 mg/dl (8.6-10.3); Creatinine Clr Calc Pharmacy 145.4 ml/min; Est GFR (African American) 136.9 ml/min; Est GFR (Non-African American) 118.1 ml/min; Globulin 2.9 gm/dl (2.5-4.0); Magnesium 1.2 mg/dl (1.7-2.4); Phosphorus 1.6 mg/dl (2.5-4.9); Potassium 3.9 mmol/L (3.5-5.1); Total Protein 4.9 gm/dl (6.0-8.3)
--- NOTE | 2023-10-14 08:38 | Hospitalist Progress Note ---
Date of Service October 14, 2023 Assessment & Plan (1) High serum carbohydrate antigen 19-9 (CA19-9): Plan: CTAP obtained, CTAP noting acute pancreatitis w/ acute peripancreatic collections, hepatic steatosis, trace b/l effusions - Lipase NOT elevated, suspect chronic/pseudocyst per GI who was consulted - Per GI, given hemodynamically stable w/ brown bowel movements, plan for outpt EGD/c-scope - Creon increased to 2 mg with meals for pancreatic insufficiency - Continue Protonix BID, Carafate QID. - Tolerating low-fat diet - CA 199 was markedly elevated at 336. Pancreatic fluid collection and a possible IPMN, suspicious for malignancy in view of this markedly elevated CA 199. > GI recommended transfer for inpatient EUS. Transfer attempted to [facility], [facility], and [facility], however they all denied transfer. - Will continue with management at [facility] with close outpatient follow-up at [facility] for EUS, EGD, and colonoscopy. > Discussed case with Dr. Powell from [facility] 10/12/23, who will perform OP EUS with Axios drainage of pseudocyst and evaluate the remaining pancreas - likely next week. His office will call patient with appointment details. (2) Anemia: Plan: Anemia of chronic disease/protein calorie malnutrition - Hgb 7.5 on admission w/ albumin 1.9, INR 1.4. - B12, folate, retic count, TSH - all satisfactory, not suggestive of hemolysis. > Continue thiamine/folate supplementation. - Iron studies with elevations. Possibly reactive from alcohol use. - INR high, most likely due to liver disease in setting of alcohol abuse. - Hemoccult negative in ER, but positive on repeat. - Type/screen and consent obtained on admission, MELD score 18 - S/p three transfusions: 2 units on 10/02 and one unit on 10/11. - Hgb remains low. No signs of active bleeding. - Monitor closely with low threshold for another transfusion. Hypomagnesemia, despite recurrent repletion Mag remains low despite recurrent repletion. > Mag 1.2 on 10/13. Ordered 6 bags of IV magnesium repletion. > Continue oral mag supplementation twice daily. Consulted Nephrology for hyperchloremic metabolic acidosis with refractory hypomagnesemia. > Continue sodium bicarbonate 650 mg twice daily. > Received sodium phosphate due to critical hypophosphatemia with Phos<1 on 10/12/2023. Phos 1.6 on 10/13. Started K Phos 2 mg PO QID. Recheck phos in 3 days, 10/16. Started amiloride 5 mg daily. Monitor BP response to K sparing diuretic. May need to increase dose if BP will tolerate it. (3) Acute kidney injury: Plan: Cr 2.19 on admission w/ electrolyte disturbances/hypomag/hypokalemia likely 2nd to alcohol use PRBC, IVF hydration and BUN/Cr normalized 16/0.86 and IVF discontinued Avoid NSAIDs, avoid nephrotoxins, renal dose meds as able ASIYA resolved (4) Alcohol abuse: Plan: Etoh 107 on admission, 2-3beers/daily w/ heavy NSAID use Continue thiamine/folic acid. B12 not deficient. > Thiamine increased to 200 mg BID Telemetry monitoring, AWSS, no evidence for DTs but did order 0.5mg PO Ativan for anxiety daily. remains on BuSpar. No SI/HI. Evening of 10/12, patient had increased anxiety and tremors. PO Ativan did not help. One time dose Ativan 2 mg IV given. Suspect this was due to anxiety more than alcohol withdrawal given >10 days since his last alcoholic drink. (5) Iron deficiency: Plan: iron studies NOT deficient, ferritin actually elevated and suspect 2nd to alcohol use/elevation on admission DOES NEED EGD/C-SCOPE IN OUTPT f/u unless acute bleeding witnessed to prompt inpatient eval again denies blood in stool but did have POSITIVE fecal occult testing but movin g bowels/brown in color reported. Monitor hgb as above (6) Vitamin D deficiency: Plan: Checked given baseline nutritional status -- LOW 19.8, replacement ordered. Should continue at discharge Plan Ordered mag repletion Started amiloride 5 mg daily Started K Phos 2 mg QID Started Remeron 7.5 mg HS Ordered extra AM labs Discussed case with nephrology and heme/onc Updated patient's sister, Miranda, via phone call Chronic stable conditions: Anxiety and depression- Continue buspirone, fluoxetine trazodone not continued for now, ativan available w/ AWSS as above. Started Remeron 7.5 mg HS on 10/13 due to increased anxiety/depression and decreased appetite Chronic back pain- Discontinued further NSAIDs, topical voltaren ordered discontinued given risk for bleeding, fecal occult testing negative Oxycodone 5mg PRN CODE STATUS: Full code Admission and Anticipated Discharge Date Admission Date: October 04, 2023 Subjective Patient seen and evaluated at bedside. He reports that he feels well other than being tired today. He had an episode of reported anxiety and tremors last night. When I asked the patient about this, he reports that he began feeling very overwhelmed and anxious. He notes this happens most often at night. He denies feeling anxious at the time of my evaluation. We discussed the medicat ion changes moving forward. Patient is understanding and agreeable. No additional complaints or concerns at this time. Physical Exam Physical Exam: General: No acute distress, nondiaphoretic. General pallor. Skin: The skin was without rashes, erythema, edema, or bruising. Cardiac: Regular rate and rhythm. Faint systolic murmur. Pulm: Clear to auscultation bilaterally without wheezes, rales or rhonchi. Slightly diminished breath sounds at bases. No respiratory distress. 98% on room air. Abdominal: Soft, nontender, nondistended. Bowel sounds present. Neuro: A&O x3. No focal neurological deficits. Results & Data Results & Data Vital Signs (Past 12 Hours) Vital Signs Temp Pulse Pulse Resp BP BP Pulse Ox 10/14/23 07:59 10/14/23 07:05 36.7 C 95 H 19 99/71 L 99 10/14/23 02:49 37.1 C 98 H 16 92/64 L 97 10/13/23 22:22 36.8 C 100 H 16 92/64 L 98 10/13/23 21:56 90 O2 Del Method 10/14/23 07:59 Room Air 10/14/23 07:05 Room Air 10/14/23 02:49 Room Air 10/13/23 22:22 Room Air 10/13/23 21:56 Laboratory Results Reviewed CBC Reviewed CMP PG Care Time/CCT Total # of Minutes Spent Total Time Spent with Patient: Total time spent is greater than 50% in coordination of care (as documented) at patient's floor/unit and/or counseling patient: Coding Level of Care Code 45697 SUB INP/OBS CARE 3/50MIN Diagnoses High serum carbohydrate antigen 19-9 (CA19-9) R79.89 Anemia D64.9 Anemia type: unspecified type Acute kidney injury N17.9 Alcohol abuse F10.10 Iron deficiency E61.1 Vitamin D deficiency E55.9 (2) Anemia Anemia type: unspecified type Qualified Code(s): D64.9 - Anemia, unspecified
[2023-10-14 09:02] LABS: Reticulocyte % 1.69 % (0.50-2.00); Reticulocytes # 0.04 10^6/uL (0.020-0.100)
[2023-10-14] MEDS: MAGNESIUM SULFATE / D5W 1 GM/100 ML BAG IV SCH (09:35)
[2023-10-14] MEDS: aMILoride HCL 5 MG TAB PO SCH (09:39)
[2023-10-14] MEDS: POT PHOSPHATE MONOBASIC W/ SOD TAB PO SCH (09:40)
--- NOTE | 2023-10-14 11:02 | Nephrology Progress Note ---
Date of Service October 14, 2023 Assessment & Plan (1) Metabolic acidosis: (2) Hypomagnesemia: (3) Hypokalemia: (4) Acute alcoholic pancreatitis: (5) Weakness: Plan 52 yo M with history of alcohol abuse complicated by alcoholic pancreatitis, chronic diarrhea anemia, multiple electrolyte abnormality and ASIYA on admission. Acute kidney injury resolved. Hypokalemia and hypomagnesemia improved. Hyperchloremic metabolic acidosis with urine pH around 6-7.5, bicarb was 16 which improved to around 19-20 over last few days. Non gap metabolic acidosis with urine pH above 6 and hypokalemia and positive U AG, could be secondary to renal tubular acidosis although no offending medication to blame or clear etiology. -- continue on sodium bicarbonate 650 mg twice a day -- encouraged high K diet --Continue magnesium and phosphorus supplement, may need to go up on amiloride if blood pressure tolerates. Will sign off. Admission and Anticipated Discharge Date Admission Date: October 04, 2023 Delfino Frye was seen this morning. Continues to feel tired but denies any other symptoms. Continues to have multiple electrolyte abnormality but potassium and bicarbonate improve, receiving oral and IV magnesium and phosphorus supplement. Blood pressure low but relatively stable. Reports decent p.o. intake. Review of Systems Review of Systems: Detailed review of system was otherwise unremarkable. Physical Exam Constitutional: WD/WN, vitals as above no acute distress Eyes: + anicteric sclerae Respiratory: Auscultation: lungs clear to auscultation bilaterally Cardiovascular: RRR, no murmur, no edema Musculoskeletal: Extremities: extremities normal to inspection Psychiatric: Orientation: alert and oriented x 3 Affect: euthymic affect Results & Data Vital Signs (Past 12 Hours) Vital Signs Temp Pulse Pulse Resp BP BP Pulse Ox 10/14/23 08:00 106 H 10/14/23 07:59 10/14/23 07:05 36.7 C 95 H 19 99/71 L 99 10/14/23 02:49 37.1 C 98 H 16 92/64 L 97 O2 Del Method 10/14/23 08:00 10/14/23 07:59 Room Air 10/14/23 07:05 Room Air 10/14/23 02:49 Room Air PG Care Time/CCT Total # of Minutes Spent Total Time Spent with Patient: Total time spent is greater than 50% in coordination of care (as documented) at patient's floor/unit and/or counseling patient: Coding Level of Care Code 86957 SUB INP/OBS CARE 235MIN Diagnoses Metabolic acidosis E87.2 Hypomagnesemia E83.42 Hypokalemia E87.6 Alcohol-induced acute pancreatitis without infection or necrosis K85.20 Acute pancreatitis complication: no infection or necrosis Weakness R53.1 (4) Acute alcoholic pancreatitis Acute pancreatitis complication: no infection or necrosis Qualified Code(s): K85.20 - Alcohol induced acute pancreatitis without necrosis or infection
[2023-10-14] MEDS: PANCREAZE (LIPASE 10,500U) CAP PO SCH (17:44)
[2023-10-14] MEDS: MIRTAZAPINE TAB 15 MG TAB PO SCH (20:17)
[2023-10-14] MEDS ORDERED: PANCREAZE (LIPASE 10,500U) CAP PO SCH (21:00)
[2023-10-15 07:34] LABS: Hematocrit (blood only) 24.4 % (42.0-52.0); Hemoglobin 8.2 g/dl (14.0-18.0); Mean Corpuscular Hemoglobin 32.8 pg (25.0-34.0); Mean Corpuscular Hgb Conc 33.6 g/dL (32.0-36.0); Mean Corpuscular Volume 97.6 fL (80.0-100.0); Mean Platelet Volume 10.3 fL (9.4-12.4); Platelet Count 320 K/uL (130-400); RDW Coefficient of Variation 17.3 % (11.5-14.5); RDW Standard Deviation 62.5 fL (36.4-46.3); White Blood Count 6.52 K/ul (4.8-10.8)
[2023-10-15 08:05] LABS: Albumin Globulin Ratio 0.7 (0.9-2); Albumin Level 2.2 gm/dl (3.4-5.0); BUN Creatinine Ratio 15.5 (10-20); Bilirubin,Total 0.6 mg/dl (0.2-1.0); Calcium 7.3 mg/dl (8.6-10.3); Est GFR (African American) 134.9 ml/min; Est GFR (Non-African American) 116.4 ml/min; Globulin 3.2 gm/dl (2.5-4.0); Magnesium 1.7 mg/dl (1.7-2.4); Phosphorus 2.8 mg/dl (2.5-4.9); Potassium 3.8 mmol/L (3.5-5.1); Total Protein 5.4 gm/dl (6.0-8.3)
[2023-10-15] MEDS ORDERED: THIAMINE HCL 200 MG in SYRINGE 9 ML IV SCH (09:00)
[2023-10-15] MEDS: THIAMINE HCL 200 MG in SODIUM CHLORIDE 0.9% 50 ML IV SCH (09:21)
--- NOTE | 2023-10-15 21:59 | Discharge Summary ---
Discharge Summary Date of Service October 15, 2023 Principal Dx & Hospital Course #1 = Principal Diagnosis (1) High serum carbohydrate antigen 19-9 (CA19-9): CTAP obtained, noted acute pancreatitis w/ acute peripancreatic collections, hepatic steatosis, trace b/l effusions - Lipase NOT elevated, suspect chronic/pseudocyst per GI who was consulted - Per GI, given hemodynamically stable w/ brown bowel movements, plan for outpt EGD/c-scope - Creon increased to 2 mg with meals for pancreatic insufficiency - Continue Protonix BID, Carafate QID. - Tolerating low-fat diet - CA 199 was markedly elevated at 336. Pancreatic fluid collection and a possible IPMN, suspicious for malignancy in view of this markedly elevated CA 199. - Discussed case with Dr. Powell from [facility] 10/12/23, who agreed to perform EUS with Axios drainage of psuedocyst and evaluate the remaining pancreas. > Complicated social situation, where I had concerns about returning home alone, but if he went to rehab it would delay getting this procedure. - Patient transferred to [facility] 10/15/23 for EUS with Axios drainage. - Recommend outpatient EGD/colonoscopy. (2) Anemia: Anemia of chronic disease/protein calorie malnutrition - Hgb 7.5 on admission w/ albumin 1.9, INR 1.4. - B12, folate, retic count, TSH - all satisfactory, not suggestive of hemolysis. > Continue thiamine/folate supplementation. - Iron studies with elevations. Possibly reactive from alcohol use. - INR high, most likely due to liver disease in setting of alcohol abuse. - Hemoccult negative in ER, but positive on repeat. - Type/screen and consent obtained on admission, MELD score 18 - S/p three transfusions: 2 units on 10/02 and one unit on 10/11. - Hgb remained low, but stable. No signs of active bleeding. Hypomagnesemia, despite recurrent repletion Mag remained low despite recurrent repletion. > Mag 1.2 on 10/13. Ordered 6 bags of IV magnesium repletion. > Mag 1.7 on 10/14. > Continue oral mag supplementation twice daily. Consulted Nephrology for hyperchloremic metabolic acidosis with refractory hypomagnesemia. > Continue sodium bicarbonate 650 mg twice daily. > Received sodium phosphate due to critical hypophosphatemia with Phos<1 on 10/12/2023. Phos 1.6 on 10/13. Started K Phos 2 mg PO QID. Recommend recheck phos on 10/16. Continue amiloride 5 mg daily. Monitor BP response to K sparing diuretic. May need to increase dose if BP will tolerate it. (3) Acute kidney injury: Cr 2.19 on admission w/ electrolyte disturbances/hypomag/hypokalemia likely 2nd to alcohol use PRBC, IVF hydration and BUN/Cr normalized 16/0.86 and IVF discontinued Avoid NSAIDs, avoid nephrotoxins, renal dose meds as able ASIYA resolved (4) Alcohol abuse: Etoh 107 on admission, 2-3beers/daily w/ heavy NSAID use Continue thiamine/folic acid. B12 not deficient. > Thiamine increased to 200 mg BID Telemetry monitoring, AWSS, no evidence for DTs but did order 0.5mg PO Ativan for anxiety daily. remains on BuSpar. No SI/HI. Evening of 10/12, patient had increased anxiety and tremors. PO Ativan did not help. One time dose Ativan 2 mg IV given. Suspect this was due to anxiety more than alcohol withdrawal given >10 days since his last alcoholic drink. (5) Iron deficiency: iron studies NOT deficient, ferritin actually elevated and suspect 2nd to alcohol use/elevation on admission DOES NEED EGD/C-SCOPE IN OUTPT f/u unless acute bleeding witnessed to prompt inpatient eval again denies blood in stool but did have POSITIVE fecal occult testing but moving bowels/brown in color reported. (6) Vitamin D deficiency: Checked given baseline nutritional status -- LOW 19.8, replacement ordered. Should continue at discharge Plan Chronic stable conditions: Anxiety and depression- Continue buspirone, fluoxetine trazodone not continued for now, ativan available w/ AWSS as above. Started Remeron 7.5 mg HS on 10/13 due to increased anxiety/depression and decreased appetite Chronic back pain- Discontinued further NSAIDs, topical voltaren ordered discontinued given risk for bleeding, fecal occult testing negative Oxycodone 5mg PRN CODE STATUS: Full code Notes For Next Care Provider Patient transferred to [facility] on 10/15/23 to get EUS with Axios drainage. Recommend outpatient EUS/colonoscopy. Medication Changes From Visit Remeron 7.5 mg HS Ativan 0.5 mg daily PRN Mag-Ox 400 mg BID Sodium bicarbonate 650 mg BID K Phos 2 mg QID Amiloride 5 mg daily Thiamine increased to 200 mg BID Folic acid 1 mg QAM Vit D 125 mcg QAM Creon increased to 2 mg with meals Protonix 40 mg BID Carafate 1 g QID Admission HPI Per Admitting Provider The patient is a 52-year-old male with past medical history including alcohol abuse, alcohol withdrawal, alcoholic pancreatitis, folate deficiency, B12 deficiency, iron deficiency, depression, hypertension, tobacco use disorder and lumbar radiculopathy. He presents to the emergency department with several weeks of worsening fatigue, generalized weakness, decreased appetite. He reports averaging 3 large beers daily. He reports taking his medications as directed. Admission Exam Per Admitting Provider The patient is awake, alert and oriented 3, well developed and well nourished, normocephalic and atraumatic, lying in bed and in no acute distress. HEENT--PERRL, EOMI, mucous membranes and oropharynx dry. Neck--supple. No JVD. No bruits. Thyroid normal, trachea midline, no adenopathy. Heart--normal S1 and S2. No murmurs, rubs or gallops. Lungs--clear bilaterally, no respiratory distress, no accessory muscle use. Abdomen--normal bowel sounds and soft. Nontender. Nondistended Extremities--no cyanosis or clubbing. No edema. Dermatologic--normal skin turgor, normal color, no abnormal lymph nodes, no rash. Neurologic--cranial nerves II through XII grossly intact. Rheumatologic--normal range of motion. Psychiatric--normal affect. Discharge Exam General: No acute distress, nondiaphoretic. General pallor. Skin: The skin was without rashes, erythema, edema, or bruising. Cardiac: Regular rate and rhythm. Faint systolic murmur. Pulm: Clear to auscultation bilaterally without wheezes, rales or rhonchi. Slightly diminished breath sounds at bases. No respiratory distress. 98% on room air. Abdominal: Soft, nontender, nondistended. Bowel sounds present. Neuro: A&O x3. No focal neurological deficits. Updated Medication List Medication Instructions Recorded Confirmed Type multivitamin 1 tab PO DAILY 08/13/21 10/03/23 History ibuprofen 200 mg tablet (Advil) 400 mg PO Q6H PRN Pain 01/11/23 10/03/23 History metoprolol succinate 25 mg 25 mg PO QAM 01/11/23 10/03/23 History tablet,extended release 24 hr folic acid 1 mg tablet 1 mg PO DAILY #90 tabs 02/12/23 10/03/23 Rx pantoprazole 40 mg tablet,delayed 40 mg PO QAM #90 tabs 02/19/23 10/03/23 Rx release fluoxetine 40 mg capsule 40 mg PO DAILY #90 caps 02/20/23 10/03/23 Rx magnesium oxide 400 mg PO DAILY #90 caps 04/27/23 10/03/23 Rx buspirone 10 mg tablet 10 mg PO TID 90 days #270 tabs 08/02/23 10/03/23 Rx cholecalciferol (vitamin D3) 125 125 mcg PO QAM #30 tabs 10/08/23 Rx mcg (5,000 unit) tablet pantoprazole 40 mg tablet,delayed 40 mg PO BID #60 tabs 10/08/23 Rx release sucralfate 100 mg/mL oral 1 g (10 mL) PO QID 2 weeks #560 mL 10/08/23 Rx suspension amiloride 5 mg tablet 5 mg PO DAILY #30 tabs 10/15/23 Rx sphfos-hsadluvx-sdseodg 2 cap PO TIDM #30 caps 10/15/23 Rx 36,000-114,000-180,000 unit capsule,delay rel (Creon) lorazepam 0.5 mg tablet 0.5 mg PO DAILY PRN anxiety #10 10/15/23 Rx tabs mirtazapine 15 mg tablet 7.5 mg (1/2 x 15 mg) PO HS #30 tabs 10/15/23 Rx sodium bicarbonate 650 mg tablet 650 mg PO BID #60 tabs 10/15/23 Rx sodium di- and 2 tab PO QID #30 tabs 10/15/23 Rx monophosphate-potassium phos monobasic 250 mg tablet (Phospha Neutral) thiamine HCl (vitamin B1) 100 mg 200 mg (2 x 100 mg) PO QAM #90 tabs 10/15/23 10/03/23 Rx tablet trazodone 50 mg tablet 50 mg PO HS #90 tabs 10/15/23 Rx Hospital Stay Data Consultations 10/03/23 23:36 ED Decision to Admit Stat 10/04/23 09:35 Consult Gastroenterology Routine 10/08/23 17:10 Consult Behavioral Health Liaison Routine 10/12/23 09:36 Consult Nephrology Routine 10/15/23 13:49 Burn CD for patient Stat Diagnostic Imagining Performed Laboratory Results WBC 6.52 K/ul (4.8-10.8) 10/15/23 07:11 RBC 2.50 M/uL (4.70-6.10) L 10/15/23 07:11 Hgb 8.2 g/dl (14.0-18.0) L 10/15/23 07:11 Hct 24.4 % (42.0-52.0) L 10/15/23 07:11 MCV 97.6 fL (80.0-100.0) 10/15/23 07:11 MCH 32.8 pg (25.0-34.0) 10/15/23 07:11 MCHC 33.6 g/dL (32.0-36.0) 10/15/23 07:11 RDW Std Deviation 62.5 fL (36.4-46.3) H 10/15/23 07:11 RDW Coeff of Arturo 17.3 % (11.5-14.5) H 10/15/23 07:11 Plt Count 320 K/uL (130-400) 10/15/23 07:11 MPV 10.3 fL (9.4-12.4) 10/15/23 07:11 Immature Gran % (Auto) 0.3 % 10/06/23 07:14 Neut % (Auto) 68.3 % 10/06/23 07:14 Lymph % (Auto) 22.2 % 10/06/23 07:14 [place] % (Auto) 8.5 % 10/06/23 07:14 Eos % (Auto) 0.5 % 10/06/23 07:14 Baso % (Auto) 0.2 % 10/06/23 07:14 Reticulocyte % (Auto) 1.69 % (0.50-2.00) 10/14/23 07:08 Neut # (Auto) 4.25 K/uL (1.40-6.50) 10/06/23 07:14 Lymph # (Auto) 1.38 K/uL (1.20-3.40) 10/06/23 07:14 [place] # (Auto) 0.53 K/uL (0.11-0.59) 10/06/23 07:14 Eos # (Auto) 0.03 K/uL (0.00-0.50) 10/06/23 07:14 Baso # (Auto) 0.01 K/uL (0.00-0.20) 10/06/23 07:14 Reticulocyte # 0.040 10^6/uL (0.020-0.100) 10/14/23 07:08 Immature Gran # (Auto) 0.02 K/uL (0.01-0.20) 10/06/23 07:14 Polychromasia 1+ 10/05/23 08:44 Target Cells 1+ 10/05/23 08:44 Peripher Smr Path Cons 10/15/23 07:11 PT 13.8 Seconds (9.0-12.0) H 10/09/23 06:19 INR 1.3 (0.9-1.1) H 10/09/23 06:19 APTT 33 Seconds (21-31) H 10/03/23 22:40 PTT Ratio 1.2 10/03/23 22:40 Sodium 136 mmol/L (136-145) 10/15/23 07:11 Potassium 3.8 mmol/L (3.5-5.1) 10/15/23 07:11 Chloride 108 mmol/L (98-107) H 10/15/23 07:11 Carbon Dioxide 23 mmol/L (21-32) 10/15/23 07:11 Anion Gap 5 (3-11) 10/15/23 07:11 BUN 9 mg/dl (6-23) 10/15/23 07:11 Creatinine 0.58 mg/dl (0.6-1.4) L 10/15/23 07:11 Est Cr Clr Drug Dosing 140.0 ml/min 10/15/23 07:11 Est GFR ( Amer) 134.9 ml/min 10/15/23 07:11 Est GFR (Non-Af Amer) 116.4 ml/min 10/15/23 07:11 BUN/Creatinine Ratio 15.5 (10-20) 10/15/23 07:11 Glucose 91 mg/dl (70-99(Fasting)) 10/15/23 07:11 Osmolality 266 mOsm/kg (280-300) L 10/04/23 08:12 Calcium 7.3 mg/dl (8.6-10.3) L 10/15/23 07:11 Ionized Calcium 1.19 mmol/L (1.12-1.32) 10/05/23 16:53 Phosphorus 2.8 mg/dl (2.5-4.9) D 10/15/23 07:11 Magnesium 1.7 mg/dl (1.7-2.4) 10/15/23 07:11 Iron 45 mcg/dl (35-175) 10/07/23 05:51 TIBC TNP 10/07/23 05:51 Unsaturated IBC < 55 mcg/dl (155-355) L 10/07/23 05:51 Transferrin % Sat TNP 10/07/23 05:51 Ferritin 519.9 ng/ml (8-388) H 10/07/23 05:51 Total Bilirubin 0.6 mg/dl (0.2-1.0) 10/15/23 07:11 Direct Bilirubin 0.4 mg/dl (0-0.2) H 10/09/23 06:19 AST 18 U/L (13-39) 10/15/23 07:11 ALT 14 U/L (7-52) 10/15/23 07:11 Alkaline Phosphatase 133 U/L (34-104) H 10/15/23 07:11 Ammonia 40.0 umol/L (18-72) 10/03/23 23:22 Troponin I High Sens 4.2 pg/ml (0-20) 10/03/23 22:40 Total Protein 5.4 gm/dl (6.0-8.3) L 10/15/23 07:11 Albumin 2.2 gm/dl (3.4-5.0) L 10/15/23 07:11 Globulin 3.2 gm/dl (2.5-4.0) 10/15/23 07:11 Albumin/Globulin Ratio 0.7 (0.9-2) L 10/15/23 07:11 Lipase 8 U/L (11-82) L 10/10/23 07:21 CA 19-9 Antigen 336 U/mL (<34) H 10/09/23 06:19 Vitamin B12 > 1500 pg/ml (180-914) H 10/03/23 23:22 25-OH Vitamin D Total 19.8 ng/ml (30-100) L 10/06/23 07:14 Folate > 22.30 ng/ml (>5.38) 10/03/23 23:22 Procalcitonin 0.12 ng/ml (0-0.5) 10/05/23 16:53 TSH 1.710 uIu/ml (0.300-4.500) 10/03/23 22:40 Cortisol AM Sample 15.16 mcg/dl (6.2-22.6) 10/06/23 07:14 Urine Color Yellow 10/04/23 Unknown Urine Appearance Clear (Clear) 10/04/23 Unknown Urine pH 6.5 (4.5-7.5) 10/04/23 Unknown Ur Specific Arnold 1.006 (1.000-1.030) 10/04/23 Unknown Urine Protein Trace (Negative) H 10/04/23 Unknown Urine Glucose (UA) Negative (Negative) 10/04/23 Unknown Urine Ketones Negative (Negative) 10/04/23 Unknown Urine Blood Negative (Negative) 10/04/23 Unknown Urine Nitrite Negative (Negative) 10/04/23 Unknown Urine Bilirubin Negative (Negative) 10/04/23 Unknown Urine Urobilinogen Negative (Negative) 10/04/23 Unknown Ur Leukocyte Esterase Negative (Negative) 10/04/23 Unknown Urine WBC (Auto) 0-5 /hpf (0-5) 10/04/23 Unknown Urine RBC (Auto) 3-5 /hpf (0-2) H 10/04/23 Unknown U Hyaline Cast (Auto) 0-2 /lpf (0-2) 10/04/23 Unknown U Epithel Cells (Auto) 0-2 /hpf (0-2) 10/04/23 Unknown Urine Bacteria (Auto) None Seen (None Seen) 10/04/23 Unknown Urine Osmolality 94 mOsm/kg (500-800) L 10/04/23 Unknown Ur Random Sodium 83 mmol/L 10/12/23 18:35 Ur Random Potassium 26.0 mmol/L 10/12/23 18:35 Ur Random Chloride 85 mmol/L 10/12/23 18:35 Stool Occult Bld Scrn Negative (Negative) 10/15/23 02:59 Ethyl Alcohol mg/dL 107.1 mg/dl (<10.0) H 10/03/23 22:40 Lyme Disease Screen Negative (Negative) 10/06/23 07:14 Hepatitis A IgM Ab NON-REACTIVE (NON-REACTIVE) 10/06/23 07:14 Hep Bs Antigen Negative (Negative) 10/06/23 07:14 Hep B Core IgM Ab NON-REACTIVE (NON-REACTIVE) 10/06/23 07:14 Hepatitis C Antibody Negative (Negative) 10/06/23 07:14 HIV-1 RNA copies/mL NOT DETECTED copies/mL (NOT DETECTED) 10/06/23 07:14 HIV-1 RNA logcopies/mL NOT DETECTED (NOT DETECTED) 10/06/23 07:14 Blood Type O Positive 10/12/23 09:46 Blood Type Recheck O Positive 10/04/23 08:12 Antibody Screen NEGATIVE 10/12/23 09:46 Crossmatch See Detail 10/12/23 09:46 Impressions Chest X-Ray 10/03/23 22:18 XR chest 1V not portable CLINICAL HISTORY: Weakness TECHNIQUE: Single frontal radiograph of the chest was obtained. Comparison: Comparison is made to chest radiograph 01/11/2023 FINDINGS: No lines and tubes are seen. The cardiomediastinal silhouette is normal. The lungs are clear. No evidence of pleural effusion or pneumothorax. IMPRESSION: No acute chest disease. ACT 112: Negative or not required by law. Electronically signed by: Tay Padilla M.D. 10/04/2023 6:52 AM Abdomen/Pelvis CT 10/04/23 09:24 CT abd pelvis wo con CLINICAL HISTORY: asiya, anemia, alcohol abuse, weakness TECHNIQUE: Helical axial images of the abdomen and pelvis were obtained. Automated dose lowering techniques and/or adjustment according to patient size were utilized for this exam. This exam was performed without intravenous contrast. CT DOSE: 735.31 mGy.cm COMPARISON: Comparison is made to CT abdomen pelvis 01/11/2023 FINDINGS: Lower chest: Bibasilar atelectasis versus scarring is seen. Trace bilateral pleural effusions. Liver: Hepatic steatosis is noted. Gallbladder and biliary tree: The gallbladder wall appears thickened at 3 mm with mild pericholecystic fluid. No intra- or extrahepatic biliary ductal dilation. Pancreas: Multiloculated fluid collection about the pancreatic tail has significantly enlarged measuring 10.5 x 6.5 cm. A pancreatic body lesion measures 2.3 cm. Spleen: Unremarkable. Adrenals: Unremarkable. Kidneys and ureters: Perinephric stranding is noted bilaterally. Bladder: Unremarkable. Reproductive organs: Unremarkable. Bowel: Unremarkable. Lymph nodes Retroperitoneal: Unremarkable. Pelvic: Unremarkable. Mesenteric: Unremarkable. Peritoneum: Peritoneal fat stranding is seen about the pancreas, gallbladder, and left paracolic gutter Vessels: Atherosclerotic calcifications are seen. Abdominal wall: Unremarkable. Bones: Degenerative changes in the visualized spine. IMPRESSION: 1. Findings are suggestive of acute pancreatitis with acute peripancreatic collections. 2. Pericholecystic fluid is likely reactive, less likely to represent acute cholecystitis. 3. Hepatic steatosis. 4. Trace bilateral pleural effusions. ACT 112: Negative or not required by law. Electronically signed by: Tay Padilla M.D. 10/04/2023 11:50 AM Gallbladder Ultrasound 10/05/23 10:35 US gallbladder CLINICAL HISTORY: shoulder/back pain, eval ralph TECHNIQUE: Multiple real-time sonographic images of the right upper quadrant were obtained. Comparison: Comparison is made to CT abdomen pelvis 10/04/2023 FINDINGS: The liver is diffusely echogenic in appearance with poor ultrasound penetration, with normal contour, which is consistent with fatty infiltration. No focal mass lesions are seen. No intrahepatic ductal dilatation is seen. Low level internal echoes are identified layering dependently within the gallbladder, which is consistent with gallbladder sludge. The gallbladder wall is not thickened. There is no pericholecystic fluid present. A sonographic Love's sign was not elicited by the change person. The common duct measures 0.6 cm in diameter at the level of the hepatic artery. The visualized portions of the pancreas appear normal. The right kidney shows normal echogenicity, cortical thickness and renal contour. The right kidney shows no evidence of hydronephrosis or mass. No ascites or free fluid is seen in Sargent's pouch. IMPRESSION: No acute abnormalities and in particular no evidence of acute cholecystitis. Hepatic steatosis. ACT 112: Negative or not required by law. Electronically signed by: Tay Padilla M.D. 10/05/2023 11:42 AM Cervical Spine X-Ray 10/05/23 12:37 XR cervical spine 2 or 3V CLINICAL HISTORY: Neck pain. COMPARISON STUDY: Cervical spine CT January 05, 2018. FINDINGS: C7 is partially obscured. No fractures are identified within visualized portions of the cervical spine. There is severe multilevel facet arthrosis. Disc spaces are preserved. There is mild multilevel endplate osteophytosis. Paravertebral soft tissues are unremarkable. IMPRESSION: 1. C7 obscured. No fractures within visualized portions of the cervical spine. 2. Mild degenerative disc disease and severe facet arthrosis within the cervical spine. ACT 112: Negative or not required by law. Electronically signed by: Jacobo Land M.D. 10/05/2023 4:57 PM Abdomen MRI 10/08/23 12:41 Exam(s): MRI ABDOMEN W/WO Contrast IV Amt: 6cc gadavist EXAM: MR Abdomen Without and With Intravenous Contrast CLINICAL HISTORY: recurrent panc, panc fluid collection, ?panc lesion. TECHNIQUE: Multiplanar magnetic resonance images of the abdomen without and with intravenous contrast. CONTRAST: 6cc Gadavist of IV contrast COMPARISON: No relevant prior studies available. FINDINGS: Limitations: There is respiratory artifact on several imaging sequences, with resulting degradation in image quality. Lung bases: See below. Pleural space: Layering bilateral pleural effusions, left throughout the greater than right, measuring up to 3 cm in the posterior costophrenic margin. Liver: Unremarkable. No mass. Gallbladder and bile ducts: There is a solitary subcentimeter gallstone noted in the gallbladder measuring 6.3 mm. No gallbladder wall thickening. No biliary dilatation. Pancreas: There is a tubular fluid structure involving the head and neck of the pancreas, predominantly vertical in orientation, measuring up to 1.3 cm in diameter by 4 cm in length, which appears to be separate from the proximal pancreatic duct which appears to be at least partially separate from the proximal pancreatic duct, best suggested on coronal postcontrast imaging (series 15; images 85-97). Subtle communication between the proximal pancreatic duct and the cystic structure is difficult to evaluate with respiratory artifact on nearly all imaging sequences. No obvious internal solid enhancing components identified. Spleen: The multiloculated fluid collection with internal thin septations is again noted, measuring up to 10.2 x 8.4 x 7.1 cm with lobular components extending somewhat circumferentially along the anterior margin of the splenic hilum in about the proximal stomach. No definite internal solid nodular components noted. Adrenals: Not well delineated. No obvious mass. Kidneys and ureters: Unremarkable. No hydronephrosis. No solid mass. Stomach and bowel: Limited with extensive respiratory artifact. The stomach is contoured by the pancreatic collection but is decompressed. No evidence for bowel obstruction. Intraperitoneal space: No definite free fluid collection. Soft tissues: Unremarkable. Vasculature: Unremarkable. No abdominal aortic aneurysm. Lymph nodes: Unremarkable. No enlarged lymph nodes. IMPRESSION: 1. The multiloculated fluid collection with internal thin septations is again noted, measuring up to 10.2 x 8.4 x 7.1 cm with lobular components extending somewhat circumferentially along the anterior margin of the splenic hilum in about the proximal stomach. No definite internal solid nodular components noted. 2. There is a tubular fluid structure involving the head and neck of the pancreas, predominantly vertical in orientation, measuring up to 1.3 cm in diameter by 4 cm in length, which appears to be separate from the proximal pancreatic duct which appears to be at least partially separate from the proximal pancreatic duct, best suggested on coronal postcontrast imaging (series 15; images 85-97). Subtle communication between the proximal pancreatic duct and the cystic structure is difficult to evaluate with respiratory artifact on nearly all imaging sequences. No obvious internal solid enhancing components identified. 3. Layering bilateral pleural effusions, left throughout the greater than right, measuring up to 3 cm in the posterior costophrenic margin. 4. There is a solitary subcentimeter gallstone noted in the gallbladder measuring 6.3 mm. No gallbladder wall thickening. No biliary dilatation. Electronically signed by: Ronnie Calderón MD 10/09/23 01:29 AM Pending Results Patient Have Any Pending Studies at Discharge: Yes Discharge Instructions Given to Patient (Per Discharging Provider) FOR [facility]: Mr. Smith has PMH including alcohol abuse, alcohol withdrawal, alcoholic pancreatitis, folate deficiency, B12 deficiency, iron deficiency, depression, anxiety, hypertension, tobacco use disorder and lumbar radiculopathy. He presented with several weeks of worsening fatigue, generalized weakness, decreased appetite. CT A/P noted acute on chronic alcoholic pancreatitis with acute peripancreatic collections. CA 19-9 elevated at 336. Discussed case with Dr. Powell who agreed to do EUS with A[facility]os drainage. Additionally, patient has anemia of chronic disease. He is s/p 3 blood transfusions (2 units on 10/02 and 1 unit on 10/11). Positive Hemoccult throughout admission (though negative on 10/15/23), but no other signs of GI bleeding. B12, folate, reticulocyte count, TSH all satisfactory. Iron studies with elevations, most likely reactive from alcohol abuse. INR high, most likely due to liver disease in setting of alcohol abuse. Multiple electrolyte abnormalities while hospitalized, which have been acutely repleted as well as addition of maintenance supplementation. MEDICATIONS: - Anxiety / Depression: Fluoxetine 40 mg daily Buspirone 10 mg TID Started Remeron 7.5 mg HS Ativan 0.5 mg daily PRN - Electrolytes: Mag-Ox 400 mg BID Sodium bicarbonate 650 mg BID K Phos 2 mg QID (Recommend recheck phos on 10/17/23) Amiloride 5 mg daily (Monitor BP response in setting of chronic hypotension and new diuretic. May need to increase dose if BP will tolerate it). - Anemia/Malnutrition: Thiamine increased to 200 mg BID Folic acid 1 mg QAM Vit D 125 mcg QAM - Pancreatic Insufficiency: Creon increased to 2 mg with meals Protonix 40 mg BID Carafate 1 g QID Recommend EGD and colonoscopy outpatient. Patient will likely need rehab upon discharge. Please contact patient's sister, Miranda ([phone]) with updates. Thank you, Ashleigh Xavier PA-C Total Time Total Time Spent Total Time Spent (In Minutes): Greater than 30 minutes spent completing this discharge process including direct patient care, medication reconciliation, documentation, review of labs and images, and coordination of care. Coding Level of Care Code 09775 INP/OBS DISCH >30 MIN Diagnoses High serum carbohydrate antigen 19-9 (CA19-9) R79.89 Anemia D64.9 Anemia type: unspecified type Acute kidney injury N17.9 Alcohol abuse F10.10 Iron deficiency E61.1 Vitamin D deficiency E55.9
== END 2023-10-15 14:45 | disposition short-term general hospital (02) | DRG 438 ==
LOC: ED 21:35 → SUATTDRO 10-04 00:08 → EDINP 10-04 00:08 → 2S 10-04 04:00

== ENCOUNTER 2024-12-09 19:06 | Inpatient (IN) ==
[2024-12-09 20:12] LABS: Alanine Aminotransferase 15 U/L (7-52); Albumin Globulin Ratio 1.4 (0.9-2); Alkaline Phosphatase 75 U/L (34-104); Anion Gap 17 (3-11); Bilirubin,Total 0.8 mg/dl (0.2-1.0); Blood Urea Nitrogen 10 mg/dl (6-23); Calcium 8.9 mg/dl (8.6-10.3); Carbon Dioxide 18 mmol/L (21-32); Chloride 96 mmol/L (98-107); Globulin 3.0 gm/dl (2.5-4.0); Glucose 117 mg/dl (70-99(Fasting)); Potassium 3.7 mmol/L (3.5-5.1); Sodium 131 mmol/L (136-145); Total Protein 7.1 gm/dl (6.0-8.3)
[2024-12-09 20:32] LABS: Hematocrit (blood only) 34.6 % (42.0-52.0); Hemoglobin 12.5 g/dl (14.0-18.0); Immature Granulocytes # (auto) 0.01 K/uL (0.01-0.20); Immature Granulocytes % (auto) 0.2 %; Mean Corpuscular Hemoglobin 34.1 pg (25.0-34.0); Mean Corpuscular Volume 94.3 fL (80.0-100.0); Platelet Count 227 K/uL (130-400); RDW Standard Deviation 49.5 fL (36.4-46.3); Red Blood Count 3.67 M/uL (4.70-6.10); White Blood Count 6.11 K/ul (4.8-10.8)
[2024-12-09 20:36] LABS: Magnesium 1.5 mg/dl (1.7-2.4)
[2024-12-09] MEDS: PANTOprazole 40 MG/10 ML SYR IV ONE (20:42)
[2024-12-09] MEDS: FOLIC ACID 1 MG in SYRINGE 9.8 ML IV STA (20:42)
[2024-12-09] MEDS: SODIUM CHLORIDE 0.9% 1,000 ML IV ONE (20:42)
[2024-12-09] MEDS: THIAMINE HCL 500 MG in SODIUM CHLORIDE 0.9% 50 ML IV STA (20:42)
--- NOTE | 2024-12-09 20:51 | Emergency Department Note ---
Impression & Plan Alcohol abuse, Malnutrition, Alcohol intoxication, Dehydration, Anemia, GI bleed ED Provider Note ED Provider Note NAME: BINA GATES AGE:54 SEX: Male : 1970 ARRIVES VIA: EMS INFORMANT: Patient ED PROVIDER(s): Dottie Alvarado DO CHIEF COMPLAINT: Alcohol intoxication, not eating or drinking HPI: This is a 54-year-old male presents to the emergency department due to concern for symptoms stemming to ongoing alcohol abuse. Patient states he relapsed about 2 weeks ago. He states he had been sober for approximately 6 to 8 weeks before that. He states he drinks hard seltzers daily. He states over the course of the last week he has not had anything to eat or drink by mouth other than alcohol. He states he has felt more weak, dizzy, and nauseated. He states for 1 or 2 days he also noticed dark tarry stools, no gross blood. He denies any coming abdominal pain but admits he does have a history of pancreatitis from alcohol abuse. He states he has previously required inpatient hospitalization for alcohol withdrawal, and is also previously had an alcohol withdrawal related seizure. Patient states his last drink was today around 5pm. PAST MEDICAL HISTORY:See Below PAST SURGICAL HISTORY:See Below FAMILY HISTORY:See Below SOCIAL HISTORY:See Below HOME MEDICATIONS:See Below ALLERGIES:See Below VITALS:See Below PHYSICAL EXAMINATION: GENERAL: alert, ill appearing, thin, no distress, non-toxic EYE EXAM: normal conjunctiva, PERRL and EOM's grossly intact OROPHARYNX: no exudate, no erythema, lips, buccal mucosa, and tongue normal and mucous membranes are dry NECK: supple, no nuchal rigidity, no adenopathy, non-tender LUNGS: Clear to auscultation. Normal chest wall mechanics, no w/r/r HEART: no murmurs, S1 normal and S2 normal ABDOMEN: abdomen soft, non-tender, normo-active bowel sounds, no masses, no rebound or guarding. RECTAL: no fissure, no hemorrhoids, melanotic stool in rectal vault which was heme positive on guaiac testing, Bita DARBY nurse beveler for the exam SKIN: no rashes, petechiae, orbruising UPPER EXTREMITIES: upper extremities are grossly normal. FROM, nml pulses b/l. LOWER EXTREMITIES: No pitting edema. FROM, nml pulses b/l. NEURO EXAM: Normal sensorium, cranial nerves II-XII grossly intact, normal speech, no facial droop,nogross weakness of arms, no gross weakness of legs. Gross sensation intact. No ataxia. Vital Signs: reviewed and remarkable Differential Diagnosis: alcohol intoxication, substance abuse, hypoglycemia, electrolyte abnormalities, dysrhythmia, dehydration, CHI, ICH, as well as others were entertained. MEDICAL DECISION MAKING: This is a 54-year-old male presents the emergency department due to concern for alcohol abuse and malnutrition. Patient admits to recent relapse into alcohol use, does have a prior similar presentations. Patient noted to be tachycardic however otherwise hemodynamically stable on arrival. Labs are drawn and sent, IV established, EKG and x-rays performed at bedside and interpreted by me and the patient was monitored on telemetry. He was started on IV fluids, given IV thiamine, IV folic acid, IV famotidine, IV pantoprazole. He did request something for anxiety. While patient was clinically sober on initial exam, patient's alcohol ultimately greater than 300. Patient did receive 1 mg of IV Ativan here with improvement. He was monitored for several hours and had no obvious evolving signs or symptoms of alcohol withdrawal. Patient high risk for significant alcohol withdrawal due to clinical history including prior withdrawal related seizure. Patient does desire sobriety but is concerned for withdrawal symptoms in the interim. Rectal exam at bedside performed given patient's report of dark and tarry stools few days ago. Patient still with melanotic and he was noted to be heme positive. Patient with prior history of GI bleed and I did review the prior endoscopy. Due to GI bleed in the setting of alcohol abuse, dehydration, and risk of significant withdrawal symptoms, case discussed with the hospitalist team for additional evaluation and management. Consultation(s): 2320: Discussed with Dr. Morales, [facility] hospitalist team, for additional evaluation and management. ER Treatment Provided: See below Diagnostics Interpreted By Me: -ECG: Normal sinus at 93, normal axis, normal intervals, no acute ST/T wave changes -Cardiac Monitoring: An order was placed for continuous cardiac monitoring. The monitor shows a rate of 80 with normal sinus rhythm. -Laboratory studies: As stated above and show below. Triage Nursing Note Reviewed Prior/Outside Records Reviewed - prior DC summary reviewed Critical Care: Critical care of 48 min performed to assess and manage high likelihood of life-threatening multi system trauma, involving labs and imaging performed with assessment to evaluate multisystem trauma diagnosis with frequent reassessment. This time includes bedside time, treatment discussions with patient/family/consultants, documentation time and excludes procedure time. Past Med/Surg History Problem List (Updated 12/10/24 @ 15:30 by Bina Arteaga MD) Chronic pancreatitis GI bleed (Acute) Anemia (Acute) Dehydration (Acute) Alcohol intoxication (Acute) Malnutrition (Acute) Alcohol abuse (Acute) Malnutrition Generalized weakness (Acute) Hypomagnesemia (Chronic) Iron deficiency anemia Vitamin D deficiency Neurogenic claudication due to lumbar spinal stenosis Alcohol abuse (Chronic) Weakness (Acute) Folate deficiency Vitamin B12 deficiency Ambulatory dysfunction (Acute) Depression Anemia (Acute) Spinal stenosis at L4-L5 level Lumbar disc herniation Impaired fasting glucose Anxiety (Acute) Tobacco use disorder (Acute 05/23/12) Lumbar radiculopathy Medical History Hyponatremia Protein calorie malnutrition Hyponatremia Acute kidney injury Acute alcoholic pancreatitis Metabolic acidosis Hypertension Tethering of spinal cord SOBOE (shortness of breath on exertion) r/t anemia Alcoholic hepatitis Hx of thrombocytopenia Lumbar disc herniation Spinal stenosis at L4-L5 level History of hypokalemia Anemia states recent blood transfusion aT [facility] 09/2023 Poor historian Hypotension metoprolol on hold HTN (hypertension) metoprolol on hold; current hypotension Anxiety and depression History of seizure ~20 yrs ago, from alcohol withdrawal Hyponatremia hx Alcoholic pancreatitis (10/03/23) recent admission to [facility] and transfer to [facility] GI bleed HX Sensory polyneuropathy Left foot drop 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 Chronic alcohol use Surgical History Hx of removal of cyst History of insertion of pancreatic stent (10/16/23) [facility] Family History Other Adopted Social History Smoking Status: Never smoker Age Started Using Tobacco: 17; packs per day: 1; Cigarettes Per Day: 8 per day - advised; Second Hand Exposure: No; Do You Dip or Chew Tobacco: No; Hx Alcohol Use: Yes Alcohol type: other Alcohol Intake Frequency Comment: 1/2 to one 5th of vodka daily, some beer Hx Substance Use: No Preferred Language: Greek Communication Ability: Effective Visual Impairment: No Limitations Hearing Ability: Normal Manager Chemistry Required: No Beliefs That Will Affect Care: None marital status: Single Current Living Situation: Alone current occupational status: previously employed current occupation: Recently lost job working in an [employer] service How many Children do You have: 0 Feels Safe at Home: Yes Childhood Exposure to Second-Hand Smoke: Yes Diet: regular Dental Care, Regularly: No Physical Activity Frequency: Does not Exercise Seatbelt Use: always Sunscreen Use: No Assistive Devices: Cane and Walker Allergies Allergies Allergy/AdvReac Type Severity Reaction Status Date / Time No Known Allergies Allergy Verified 09/17/24 15:06 Home Meds Home Medications Medication Instructions Recorded Confirmed multivitamin 1 tab PO DAILY 08/13/21 12/10/24 thiamine HCl (vitamin B1) 100 mg 100 mg PO QAM 10/25/23 12/10/24 tablet melatonin 10 mg capsule 40 mg PO HS PRN Sleep 06/11/24 12/10/24 Previous Rx's Medication Instructions Recorded folic acid 1 mg tablet 1 mg PO DAILY #90 tabs 03/17/24 metoprolol succinate 25 mg 25 mg PO QAM #90 tabs 03/17/24 tablet,extended release 24 hr magnesium oxide 400 mg PO DAILY #90 caps 06/25/24 pantoprazole 40 mg tablet,delayed 40 mg PO BID #180 tabs 07/10/24 release acetaminophen 325 mg tablet 650 mg (2 x 325 mg) PO Q8H PRN 07/31/24 fever or pain #30 tabs fluoxetine 20 mg capsule 60 mg (3 x 20 mg) PO DAILY #30 caps 07/31/24 lorazepam 1 mg tablet 1 mg PO BID PRN anxiety #60 tabs 08/27/24 naltrexone 50 mg tablet 100 mg (2 x 50 mg) PO DAILY #180 09/08/24 tabs [id number] 1 cap PO TIDM #90 caps 09/15/24 36,000-114,000-180,000 unit capsule,delay rel (Creon) trazodone 50 mg tablet See Rx Instructions .Route 10/03/24 .COMPLEX #90 tabs buspirone 10 mg tablet 20 mg (2 x 10 mg) PO TID 30 days 11/10/24 #180 tabs Results & Data (ED) Vital Signs Vital Signs - 24 hr 12/09/24 23:03 Pulse Rate [Finger] 87 Respiratory Rate 19 Blood Pressure [Right Arm] 113/75 Blood Pressure Mean [Right Arm] 87 Pulse Oximetry 98 Oxygen Delivery Method Room Air Laboratory Data 12/09/24 20:16 12/10/24 08:16 Lab Results 12/09/24 12/09/24 12/09/24 Range/Units 19:35 20:16 21:11 WBC 6.11 (4.8-10.8) K/ul RBC 3.67 L (4.70-6.10) M/uL Hgb 12.5 L (14.0-18.0) g/dl Hct 34.6 L (42.0-52.0) % MCV 94.3 (80.0-100.0) fL MCH 34.1 H (25.0-34.0) pg MCHC 36.1 H (32.0-36.0) g/dL RDW Std Deviation 49.5 H (36.4-46.3) fL RDW Coeff of Arturo 14.4 (11.5-14.5) % Plt Count 227 (130-400) K/uL MPV 9.2 L (9.4-12.4) fL Immature Gran % (Auto) 0.2 % Neut % (Auto) 71.2 % Lymph % (Auto) 17.3 % Weld % (Auto) 10.8 % Eos % (Auto) 0.2 % Baso % (Auto) 0.3 % Neut # (Auto) 4.35 (1.40-6.50) K/uL Lymph # (Auto) 1.06 L (1.20-3.40) K/uL Weld # (Auto) 0.66 H (0.11-0.59) K/uL Eos # (Auto) 0.01 (0.00-0.50) K/uL Baso # (Auto) 0.02 (0.00-0.20) K/uL Immature Gran # (Auto) 0.01 (0.01-0.20) K/uL Sodium 131 L (136-145) mmol/L Potassium 3.7 (3.5-5.1) mmol/L Chloride 96 L (98-107) mmol/L Carbon Dioxide 18 L (21-32) mmol/L Anion Gap 17 H (3-11) BUN 10 (6-23) mg/dl Creatinine 0.65 (0.6-1.4) mg/dl Est Cr Clr Drug Dosing Not Reportable eGFR 111.28 BUN/Creatinine Ratio 15.4 (10-20) Glucose 117 H (70-99(Fasting)) mg/dl Calcium 8.9 (8.6-10.3) mg/dl Magnesium 1.5 L (1.7-2.4) mg/dl Total Bilirubin 0.8 (0.2-1.0) mg/dl AST 41 H (13-39) U/L ALT 15 (7-52) U/L Alkaline Phosphatase 75 (34-104) U/L Total Protein 7.1 (6.0-8.3) gm/dl Albumin 4.1 (3.4-5.0) gm/dl Globulin 3.0 (2.5-4.0) gm/dl Albumin/Globulin Ratio 1.4 (0.9-2) Lipase 5 L (11-82) U/L Urine Color Yellow Urine Appearance Clear (Clear) Urine pH 7.5 (4.5-7.5) Ur Specific [place] 1.006 (1.000-1.030) Urine Protein Negative (Negative) Urine Glucose (UA) Negative (Negative) Urine Ketones Trace H (Negative) Urine Blood Negative (Negative) Urine Nitrite Negative (Negative) Urine Bilirubin Negative (Negative) Urine Urobilinogen Negative (Negative) Ur Leukocyte Esterase Negative (Negative) Urine Comment Urine Opiates Screen Neg (Neg) Ur Methadone, Qual Neg (Neg) Urine Fentanyl Screen Neg (Neg) Urine Barbiturates Neg (Neg) Ur Phencyclidine (PCP) Neg (Neg) U Amphetamin/Meth Scrn Neg (Neg) MDMA (Ecstasy) Screen Neg (Neg) U Benzodiazepines Scrn Neg (Neg) Ur Cocaine Metabolite Neg (Neg) U Marijuana (THC) Screen Neg (Neg) Ethyl Alcohol mg/dL 302.3 H (<10.0) mg/dl Administered Medications Acetaminophen (Acetaminophen 325 Mg Tab) 650 mg PO Q8H PRN PRN Reason: fever or pain Stop: 01/09/25 00:44 Last Admin: 12/10/24 19:27 Dose: 650 mg Documented By: MOSHE Lipase/Protease/Amylase (Pancreaze (Lipase 16,800u) Cap) 2 cap PO TIDM SAMMY Stop: 01/09/25 07:59 Last Admin: 12/10/24 16:23 Dose: 2 cap Documented By: RNLeo Admin: 12/10/24 11:31 Dose: 2 cap Documented By: Admin: 12/10/24 08:35 Dose: 2 cap Documented By: RNC Buspirone HCl (Buspirone 5 Mg Tab) 20 mg PO TID SAMMY Stop: 01/09/25 08:59 Last Admin: 12/10/24 20:02 Dose: 20 mg Documented By: Admin: 12/10/24 14:15 Dose: 20 mg Documented By: Admin: 12/10/24 08:35 Dose: 20 mg Documented By: JORDYN Chlordiazepoxide HCl (Chlordiazepoxide Hcl 10 Mg Cap) 10 mg PO TID SAMMY Stop: 01/09/25 08:59 Last Admin: 12/10/24 20:07 Dose: 10 mg Documented By: Admin: 12/10/24 14:15 Dose: 10 mg Documented By: Admin: 12/10/24 08:38 Dose: 10 mg Documented By: JORDYN Fluoxetine HCl (Fluoxetine Hcl 20 Mg Cap) 60 mg PO DAILY SAMMY Stop: 01/09/25 08:59 Last Admin: 12/10/24 08:36 Dose: 60 mg Documented By: JORDYN Dextrose/Sodium Chloride (D5w And Nss) 1,000 mls @ 80 mls/hr IV .[id number] SAMMY Stop: 12/13/24 10:29 Last Admin: 12/10/24 10:52 Dose: 80 mls/hr Documented By: RNLeo Magnesium Oxide (Magnesium Oxide 400 Mg Tab) 400 mg PO DAILY SAMMY Stop: 01/09/25 08:59 Last Admin: 12/10/24 08:37 Dose: 400 mg Documented By: JORDYN Pantoprazole Sodium (Pantoprazole 40 Mg Tab) 40 mg PO BID SAMMY Stop: 01/09/25 08:59 Last Admin: 12/10/24 20:02 Dose: 40 mg Documented By: Admin: 12/10/24 08:37 Dose: 40 mg Documented By: JORDYN Trazodone HCl (Trazodone Hcl 50 Mg Tab) 50 mg PO HS SAMMY Stop: 01/09/25 00:44 Last Admin: 12/10/24 01:26 Dose: 50 mg Documented By: LEANDER Discontinued Medications Sodium Chloride (Nss) 1,000 mls @ 999 mls/hr IV .Q1H1M ONE Stop: 12/09/24 21:16 Last Infusion: 12/09/24 21:47 Dose: Infused Documented By: Admin: 12/09/24 20:42 Dose: 999 mls/hr Documented By: DAV Pantoprazole Sodium (Protonix) 40 mg in 10 mls @ 5 mls/min IV NOW ONE Stop: 12/09/24 20:17 Last Admin: 12/09/24 20:42 Dose: 5 mls/min Documented By: DAV Thiamine HCl 500 mg/ Sodium (Chloride) 55 mls @ 210 mls/hr IV NOW STA Stop: 12/09/24 20:31 Last Infusion: 12/09/24 21:07 Dose: Infused Documented By: Admin: 12/09/24 20:42 Dose: 210 mls/hr Documented By: DAV Folic Acid 1 mg/ Syringe 10 mls @ 5 mls/min IV NOW STA Stop: 12/09/24 20:17 Last Admin: 12/09/24 20:42 Dose: 5 mls/min Documented By: DAV Magnesium Sulfate/Dextrose (Magnesium Sulfate / D5w) 1 gm in 100 mls @ 100 mls/hr IV Q1H SAMMY Stop: 12/09/24 22:51 Last Infusion: 12/09/24 23:07 Dose: Infused Documented By: Admin: 12/09/24 22:13 Dose: 100 mls/hr Documented By: Infusion: 12/09/24 22:08 Dose: Infused Documented By: Admin: 12/09/24 21:08 Dose: 100 mls/hr Documented By: DAV Sodium Chloride (Nss) 1,000 mls @ 125 mls/hr IV .Q8H SAMMY Stop: 12/12/24 20:59 Last Infusion: 12/10/24 00:54 Dose: Infused Documented By: Admin: 12/09/24 21:08 Dose: 125 mls/hr Documented By: DAV Lactated Ringer's (Lr) 1,000 mls @ 80 mls/hr IV .[id number] SAMMY Stop: 12/13/24 00:44 Last Infusion: 12/10/24 10:52 Dose: Infused Documented By: Admin: 12/10/24 08:35 Dose: 80 mls/hr Documented By: Infusion: 12/10/24 08:35 Dose: Infused Documented By: Admin: 12/10/24 01:01 Dose: 125 mls/hr Documented By: ASSOCIATE TEAM PHYSICIAN Lorazepam (Lorazepam 1 Mg/1 Ml Syr Ed Inj Use) 1 mg IV ONE STA Stop: 12/09/24 20:52 Last Admin: 12/09/24 21:08 Dose: 1 mg Documented By: SW Phenobarbital Sodium (Phenobarbital Sodium 130 Mg/Ml Vial) 130 mg IM NOW STA Stop: 12/10/24 00:13 Last Admin: 12/10/24 00:31 Dose: 130 mg Documented By: ASW Phenobarbital Sodium (Phenobarbital Sodium 65 Mg/Ml Vial) 65 mg IM Q3H SAMMY Stop: 12/10/24 06:16 Last Admin: 12/10/24 06:33 Dose: Not Given Documented By: ASSOCIATE TEAM PHYSICIAN Admin: 12/10/24 06:32 Dose: Not Given Documented By: ASSOCIATE TEAM PHYSICIAN Discharge Plan Visit Data Chief Complaint: Alcohol Withdrawal Stated Complaint: Alcohol withdrawl, weakness ED Provider: Dottie Alvarado Discharge Problem: Alcohol abuse, Malnutrition, Alcohol intoxication, Dehydration, Anemia, GI bleed Patient Disposition: Admitted As Inpatient Condition: Fair Discharge Instructions Interventions: ED Discharge Assessment Last Done: 12/10/24 00:23
[2024-12-09] MEDS: LORazepam 1 MG/1 ML SYR ED Inj Use IV STA (21:08)
[2024-12-09] MEDS: MAGNESIUM SULFATE / D5W 1 GM/100 ML BAG IV SCH (21:08)
[2024-12-09] MEDS: SODIUM CHLORIDE 0.9% 1,000 ML IV SCH (21:08)
[2024-12-09 21:38] LABS: Appearance Urine Clear (Clear); Glucose Urine UA Negative (Negative)
[2024-12-09 22:14] LABS: Amphetamines+Metham, Urine Neg (Neg); MDMA (Ecstacy), Urine Neg (Neg); Marijuana, Urine Neg (Neg)
[2024-12-09 22:24] LABS: Lipase 5 U/L (11-82)
--- NOTE | 2024-12-09 23:35 | History & Physical Report ---
Date of Service December 09, 2024 Assessment & Plan (1) Alcohol withdrawal: (2) Alcohol intoxication: (3) Hypomagnesemia: (4) Hyponatremia: Plan 54-year-old male PMHx alcohol abuse, neurogenic claudication, spinal stenosis, HERMANN, depression and anxiety, and prior hypomagnesemia presenting for concerns of alcohol withdrawal. His ED evaluation does reveal that the patient is currently intoxicated, with an anion gap reflecting these findings. He has baseline anemia which he is at his normal for, also with hypomagnesemia. Drug screen is negative and no other acute findings. Slightly hyponatremic, likely secondary to poor oral intake and in setting of alcohol abuse. Patient to be admitted for alcohol withdrawal as he desires cessation at this time. #Alcohol Withdrawal/Intoxication Typically drinks 10-15 hard seltzers per day, last drink was day of arrival. Does have history of withdrawal seizures in the past (one time, years ago). No longer taking naltrexone per patient. PAWS score reveals "high" risk for complicated YAYA (5- consumed EtOH last 30 days, intoxicated last 30 days, WD seizures, rehab treatment, positive BAL on admission), will start on phenobarbital at this time given high risk. - AWSS - LFTs AST 41, ALT 15, alkaline phosphatase 75; lipase 5; EtOH level 302.3 - trend LFTs as appropriate - On po thiamine and folate, adjusted both to IV while inpatient --> Thiamine 500 mg IV daily, folate 1mg IV daily - Seizure precautions - LR @ 125 mL/hr - Hold ativan - Zofran prn N/V - Phenobarbital started given "high risk" on PAWS score - received initial IM dose in ED at admission, continue IM doses (#2 and #3) then IV and po taper #Hypomagnesemia H/o such, takes supplementation but also on PPI and in setting of alcohol abuse; received Mag sulfate 2g IV in ED. - Mg 1.5 - Mg am - Continue po magnesium as prescribed #Hyponatremia Likely secondary to poor oral intake over the past week also in setting of alcohol abuse. - Na 131, glucose 117; corrected 131 - BMP am - IVF as above #Chronic pancreatitis- In setting of alcohol abuse, lipase 5 at admission, previously low amylase; On Creon TID - continue #HERMANN- Known HERMANN, required transfusions in the past. H/H on admission 12.5/34.6, no bleeding - Trend CBC, pending vitamin B12 + folate levels #Psych/Insomnia- Buspirone, fluoxetine, melatonin, trazodone - continue #GERD- Pantoprazole - continue Dispo: Admit, PCU VTE Prophylaxis: SCDs This document was dictated utilizing [employer]. Please excuse any grammatical errors that may be secondary to use of this software. Admission and Anticipated Discharge Date Admission Date: 12/09/2024 History of Present Illness Chief Complaint: Alcohol withdrawal Primary Care Provider: Kvng Mcghee, III, CUSTOMER SERVICE CLERK 54-year-old male PMHx alcohol abuse, neurogenic claudication, spinal stenosis, HERMANN, depression and anxiety, and prior hypomagnesemia presenting for concerns of alcohol withdrawal. He reports increased weakness and inability to tolerate oral intake for approximately 1 week. History of withdrawal seizures in the past. Reports that he came to the hospital today because he has been unable to eat for the past week. He has continued to drink daily though. He drinks 10-12 cans of hard seltzers per day. 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 Denies abdominal pain. Feels hungry but has not ate. Denies falls or syncope, some weakness but believes it is related to not eating. He has a history of WD seizures in the past, one time, "years ago." Chills x 1 week, no fevers. Denies CP, palpitations, SOB, numbness/tingling, LUTS, URI symptoms, syncope, or falls. Feels slightly anxious at present, but the ED ativan helped calm him some. No trembling or shaking. ED evaluation reveals CBC without leukocytosis, H&H 12.5/34.6; CMP sodium 131, chloride 96, CO2 18, AG 17, glucose 117,; magnesium 1.5; AST 41; lipase 5; UA negative for infection; drug screen negative; alcohol 302.3; EKG NSR, low voltage QRS at 93 bpm.; Was provided with thiamine 500 mg IV, folic acid 1 mg IV, lorazepam 1 mg IV, mag sulfate 2g IV, pantoprazole 40 mg IV, and 2L NSS in ED. Please see Dr. Morales's attestation for adjustments/additions to treatment plan. Allergies Allergy/AdvReac Type Severity Reaction Status Date / Time No Known Allergies Allergy Verified 09/17/24 15:06 Home Medications Medication Instructions Recorded Confirmed Type multivitamin 1 tab PO DAILY 08/13/21 12/10/24 History thiamine HCl (vitamin B1) 100 mg 100 mg PO QAM 10/25/23 12/10/24 History tablet folic acid 1 mg tablet 1 mg PO DAILY #90 tabs 03/17/24 12/10/24 Rx metoprolol succinate 25 mg 25 mg PO QAM #90 tabs 03/17/24 09/17/24 Rx tablet,extended release 24 hr melatonin 10 mg capsule 40 mg PO HS PRN Sleep 06/11/24 12/10/24 History magnesium oxide 400 mg PO DAILY #90 caps 06/25/24 12/10/24 Rx pantoprazole 40 mg tablet,delayed 40 mg PO BID #180 tabs 07/10/24 12/10/24 Rx release acetaminophen 325 mg tablet 650 mg (2 x 325 mg) PO Q8H PRN 07/31/24 12/10/24 Rx fever or pain #30 tabs fluoxetine 20 mg capsule 60 mg (3 x 20 mg) PO DAILY #30 caps 07/31/24 12/10/24 Rx lorazepam 1 mg tablet 1 mg PO BID PRN anxiety #60 tabs 08/27/24 12/10/24 Rx naltrexone 50 mg tablet 100 mg (2 x 50 mg) PO DAILY #180 09/08/24 09/17/24 Rx tabs pcyfmt-ykkfpgll-rljfofb 1 cap PO TIDM #90 caps 09/15/24 12/10/24 Rx 36,000-114,000-180,000 unit capsule,delay rel (Creon) trazodone 50 mg tablet See Rx Instructions .Route 10/03/24 12/10/24 Rx .COMPLEX #90 tabs buspirone 10 mg tablet 20 mg (2 x 10 mg) PO TID 30 days 11/10/24 12/10/24 Rx #180 tabs Past Med/Surg History Problem List GI bleed (Acute) Anemia (Acute) Dehydration (Acute) Alcohol intoxication (Acute) Malnutrition (Acute) Alcohol abuse (Acute) Malnutrition Generalized weakness (Acute) Hypomagnesemia (Chronic) Iron deficiency anemia Vitamin D deficiency Neurogenic claudication due to lumbar spinal stenosis Alcohol abuse (Chronic) Weakness (Acute) Folate deficiency Vitamin B12 deficiency Ambulatory dysfunction (Acute) Depression Anemia (Acute) Spinal stenosis at L4-L5 level Lumbar disc herniation Impaired fasting glucose Anxiety (Acute) Tobacco use disorder (Acute 05/23/12) Lumbar radiculopathy Medical History Hyponatremia Protein calorie malnutrition Hyponatremia Acute kidney injury Acute alcoholic pancreatitis Metabolic acidosis Hypertension Tethering of spinal cord SOBOE (shortness of breath on exertion) r/t anemia Alcoholic hepatitis Hx of thrombocytopenia Lumbar disc herniation Spinal stenosis at L4-L5 level History of hypokalemia Anemia states recent blood transfusion aT [facility] 09/2023 Poor historian Hypotension metoprolol on hold HTN (hypertension) metoprolol on hold; current hypotension Anxiety and depression History of seizure ~20 yrs ago, from alcohol withdrawal Hyponatremia hx Alcoholic pancreatitis (10/03/23) recent admission to [facility] and transfer to 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 Family History Other Adopted Social History Smoking Status: Never smoker Age Started Using Tobacco: 17; packs per day: 1; Cigarettes Per Day: 8 per day - advised; Second Hand Exposure: No; Do You Dip or Chew Tobacco: No; Hx Alcohol Use: Yes Alcohol type: other Alcohol Intake Frequency Comment: 1/2 to one 5th of vodka daily, some beer Hx Substance Use: No Preferred Language: Vietnamese Communication Ability: Effective Visual Impairment: No Limitations Hearing Ability: Normal Marketing Content Coordinator Required: No Beliefs That Will Affect Care: None marital status: Single Current Living Situation: Alone current occupational status: previously employed current occupation: Recently lost job working in an [employer] service How many Children do You have: 0 Feels Safe at Home: Yes Childhood Exposure to Second-Hand Smoke: Yes Diet: regular Dental Care, Regularly: No Physical Activity Frequency: Does not Exercise Seatbelt Use: always Sunscreen Use: No Assistive Devices: None Review of Systems Review of Systems: All systems reviewed & are unremarkable except as noted in Subjective Physical Exam Physical Exam: General: No acute distress Skin: Warm and dry Head: Normocephalic, atraumatic Eyes: PERRL, conjunctivae clear, sclera non-icteric ENT: External ear and ear canal without swelling; nose atraumatic; good dentition, tongue normal appearance, pharynx normal Neck: Supple, no LAD Cardio: RRR, no M/G/R, S1 and S2 normal Resp: No respiratory distress, Lungs CTA in all lobes bilaterally, no wheezes, rales, or rhonchi Abdomen: Soft, symmetric, mild tenderness to epigastric region; No masses or hepatosplenomegaly; Bowel sounds normoactive MSK: No deformities; pulses palpable and equal; no edema. Neuro: Awake, alert; Sensation intact bilaterally; CN grossly intact Psych: Yawning often; Appropriate mood and affect; good judgement and insight; not agitated or anxious as present. Results & Data Results & Data Vital Signs (Past 12 Hours) Vital Signs Temp Pulse Pulse Resp BP BP Pulse Ox 12/09/24 23:03 87 19 113/75 98 12/09/24 22:00 79 22 117/85 97 12/09/24 21:30 83 20 122/86 97 12/09/24 20:15 90 12/09/24 19:22 36.9 C 103 H 19 127/88 97 O2 Del Method 12/09/24 23:03 Room Air 12/09/24 22:00 Room Air 12/09/24 21:30 Room Air 12/09/24 20:15 12/09/24 19:22 Room Air Laboratory Results 12/09/24 12/09/24 12/09/24 21:11 20:16 19:35 WBC 6.11 RBC 3.67 L Hgb 12.5 L Hct 34.6 L MCV 94.3 MCH 34.1 H MCHC 36.1 H RDW Std Deviation 49.5 H RDW Coeff of Arturo 14.4 Plt Count 227 MPV 9.2 L Immature Gran % (Auto) 0.2 Neut % (Auto) 71.2 Lymph % (Auto) 17.3 [place] % (Auto) 10.8 Eos % (Auto) 0.2 Baso % (Auto) 0.3 Neut # (Auto) 4.35 Lymph # (Auto) 1.06 L [place] # (Auto) 0.66 H Eos # (Auto) 0.01 Baso # (Auto) 0.02 Immature Gran # (Auto) 0.01 Sodium 131 L Potassium 3.7 Chloride 96 L Carbon Dioxide 18 L Anion Gap 17 H BUN 10 Creatinine 0.65 Est Cr Clr Drug Dosing Not Reportable eGFR 111.28 BUN/Creatinine Ratio 15.4 Glucose 117 H Calcium 8.9 Magnesium 1.5 L Total Bilirubin 0.8 AST 41 H ALT 15 Alkaline Phosphatase 75 Total Protein 7.1 Albumin 4.1 Globulin 3.0 Albumin/Globulin Ratio 1.4 Lipase 5 L Urine Color Yellow Urine Appearance Clear Urine pH 7.5 Ur Specific [place] 1.006 Urine Protein Negative Urine Glucose (UA) Negative Urine Ketones Trace H Urine Blood Negative Urine Nitrite Negative Urine Bilirubin Negative Urine Urobilinogen Negative Ur Leukocyte Esterase Negative Urine Comment Urine Opiates Screen Neg Ur Methadone, Qual Neg Urine Fentanyl Screen Neg Urine Barbiturates Neg Ur Phencyclidine (PCP) Neg U Amphetamin/Meth Scrn Neg MDMA (Ecstasy) Screen Neg U Benzodiazepines Scrn Neg Ur Cocaine Metabolite Neg U Marijuana (THC) Screen Neg Ethyl Alcohol mg/dL 302.3 H Medications Administered 2L NSS Thiamine 500 mg IV Folic acid 1 mg IV Lorazepam 1 mg IV Mag sulfate 2g IV Pantoprazole 40 mg IV ECG Additional Comments: NSR, low voltage QRS 93 bpm, CT 132, QRS 96, QT/QTc 386/479, PRT -6/-11/-20 Code Status & VTE Plan Code Status Full Supervising Physician Co-Signing Physician Notes Patient seen and examined in room 229-2, chart reviewed, case discussed with JENNY Bruce and I agree with the assessment and plan as above Patient with EtoH withdrawal. History of complicated withdrawal with seizure Exam unremarkable, no tremors at present Will proceed with Phenobarbital per protocol Remainder as above PG Care Time/CCT Total # of Minutes Spent Total Time Spent with Patient: Total time spent is greater than 50% in coordination of care (as documented) at patient's floor/unit and/or counseling patient: Coding Level of Care Code 94818 INT INP/OBS CARE 3/75MIN Diagnoses Alcohol withdrawal F10.239 Alcohol intoxication F10.929 Hypomagnesemia E83.42 Hyponatremia E87.1
[2024-12-10] MEDS ORDERED: PHENobarbital PO Alcohol Withdrawal PO STA (00:12)
[2024-12-10] MEDS ORDERED: POLYETHYLENE (MIRALAX) 17 GM PACK PO PRN (00:45)
[2024-12-10] MEDS ORDERED: ONDANSETRON INJ 2 MG/ML 2 ML VIAL IV PRN (00:45)
[2024-12-10] MEDS ORDERED: MELATONIN 3 MG TAB PO PRN (01:01)
[2024-12-10] MEDS: LACTATED RINGER'S 1,000 ML IV SCH (01:01)
[2024-12-10] MEDS: busPIRone 5 MG TAB PO SCH (08:35)
[2024-12-10] MEDS: PANCREAZE (LIPASE 16,800U) CAP PO SCH (08:35)
[2024-12-10] MEDS: MAGNESIUM OXIDE 400 MG TAB PO SCH (08:37)
[2024-12-10 09:38] LABS: Folate (Folic Acid),Ser orPlas > 22.30 ng/ml (>5.38)
[2024-12-10 09:39] LABS: Vitamin B12 279 pg/ml (180-914)
[2024-12-10 10:17] LABS: Anion Gap 11.0 (3-11); Blood Urea Nitrogen 9.0 mg/dl (6-23); Calcium 8.3 mg/dl (8.6-10.3); Carbon Dioxide 21.0 mmol/L (21-32); Chloride 105.0 mmol/L (98-107); Creatinine Clr Calc Pharmacy 123.1 ml/min; Glucose 66.0 mg/dl (70-99(Fasting)); Potassium 3.6 mmol/L (3.5-5.1); Sodium 137.0 mmol/L (136-145)
[2024-12-10] MEDS: D5W AND NSS 1,000 ML IV SCH (10:52)
--- NOTE | 2024-12-10 12:47 | Electrocardiogram Report ---
Test Reason : Blood Pressure : */* mmHG Vent. Rate : 93 BPM Atrial Rate : 93 BPM P-R Int : 132 ms QRS Dur : 96 ms QT Int : 386 ms P-R-T Axes : -6 -11 -20 degrees QTcB Int : 479 ms Normal sinus rhythm Low voltage QRS Abnormal ECG When compared with ECG of 26-Jul-2024 23:30, Nonspecific T wave abnormality now evident in Inferior leads Confirmed by Dustin Cardozo ([id number]) on 12/10/2024 12:46:51 PM Referred By: REFERRED SELF Confirmed By: Dustin Cardozo
--- NOTE | 2024-12-10 15:30 | Hospitalist Progress Note ---
Date of Service December 10, 2024 Assessment & Plan (1) Alcohol intoxication: Plan: The patient was intoxicated on arrival. He is now on a Librium tapering dose and IV fluids along with vitamin supplementation. Supportive care (2) Hypomagnesemia: Plan: Corrected with parenteral replacement (3) Hyponatremia: Plan: Mild on admission. Now improved. Serial labs (4) Chronic pancreatitis: Plan: Currently stable. No intervention necessary at this time Plan 54-year-old male PMHx alcohol abuse, neurogenic claudication, spinal stenosis, HERMANN, depression and anxiety, and prior hypomagnesemia presenting for concerns of alcohol withdrawal. His ED evaluation does reveal that the patient is currently intoxicated, with an anion gap reflecting these findings. He has baseline anemia which he is at his normal for, also with hypomagnesemia. Drug screen is negative and no other acute findings. Slightly hyponatremic, likely secondary to poor oral intake and in setting of alcohol abuse. Patient to be admitted for alcohol withdrawal as he desires cessation at this time. Hopeful discharge to home within the next day or 2 Admission and Anticipated Discharge Date Admission Date: December 09, 2024 Subjective Alert and oriented. He has been switched from phenobarbital to chlordiazepoxide. IV fluids tapered down. Dextrose added for borderline low glucose levels. Magnesium corrected to 2.0 and sodium has improved to 137 Review of Systems 2 Review of Systems: Constitutionalno fever or chills ENTno blurred vision, no double vision, no epistaxis, no sore throat Respiratoryno cough, no wheezing, no shortness of breath Cardiacno palpitations, no chest pain, no syncope Sunny nausea, vomiting, diarrhea, melena, hematochezia GUno urinary retention, no urinary incontinence, no dysuria, no hematuria Musculoskeletalno joint pain, no muscle tenderness Skinno bruising, no rashes, no pruritus Neurono isolated weakness, no paresthesia, no weakness Psychno depression, no anxiety Physical Exam 2 Physical Exam: General-alert and oriented x3, no fever, no chills HEENT-head atraumatic and normocephalic, pupils equal and reactive to light, extraocular muscles intact Neck-no lymphadenopathy or thyromegaly, trachea midline Chest-clear to auscultation. No rales, wheezing or rhonchi Cardiac-regular rate and rhythm, normal S1 and S2 Abdomen-normal bowel sounds, no hepatosplenomegaly Extremities-no cyanosis, clubbing, or edema Neuro-cranial nerves II through XII intact, motor and sensory function within normal limits, strength symmetrical, no focal deficits Psych-normal affect, normal mood Results & Data Results & Data Vital Signs (Past 12 Hours) Vital Signs Temp Pulse Pulse Resp BP Pulse Ox O2 Del Method 12/10/24 13:26 79 12/10/24 11:32 36.5 C 78 16 128/63 97 Room Air 12/10/24 08:11 36.6 C 80 18 118/60 96 Room Air 12/10/24 05:40 77 Laboratory Results 12/09/24 20:16 12/10/24 08:16 PG Care Time/CCT Total # of Minutes Spent Total Time Spent with Patient: Total time spent is greater than 50% in coordination of care (as documented) at patient's floor/unit and/or counseling patient: Coding Level of Care Code 97671 SUB INP/OBS CARE 3/50MIN Diagnoses Alcohol intoxication F10.929 Hypomagnesemia E83.42 Hyponatremia E87.1 Chronic pancreatitis K86.1
[2024-12-10 16:18] VITALS: RESP 18
[2024-12-10] MEDS: ACETAMINOPHEN 325 MG TAB PO PRN (19:27)
[2024-12-10] MEDS ORDERED: Ativan IV Alcohol Withdrawal--Active Protocol IV PRN (23:34)
[2024-12-10] MEDS: busPIRone 15 MG TAB PO STA (23:41)
[2024-12-11 06:52] LABS: Hematocrit (blood only) 24.9 % (42.0-52.0); Hemoglobin 8.9 g/dl (14.0-18.0); Immature Granulocytes # (auto) 0.01 K/uL (0.01-0.20); Immature Granulocytes % (auto) 0.2 %; Mean Corpuscular Hemoglobin 34.5 pg (25.0-34.0); Mean Corpuscular Volume 96.5 fL (80.0-100.0); Platelet Count 120 K/uL (130-400); RDW Standard Deviation 50.6 fL (36.4-46.3); Red Blood Count 2.58 M/uL (4.70-6.10); White Blood Count 5.29 K/ul (4.8-10.8)
[2024-12-11 07:08] LABS: Alanine Aminotransferase 12.0 U/L (7-52); Albumin Globulin Ratio 1.4 (0.9-2); Alkaline Phosphatase 57.0 U/L (34-104); Anion Gap 4.0 (3-11); Bilirubin,Total 0.8 mg/dl (0.2-1.0); Blood Urea Nitrogen 9.0 mg/dl (6-23); Calcium 8.2 mg/dl (8.6-10.3); Carbon Dioxide 25.0 mmol/L (21-32); Chloride 109.0 mmol/L (98-107); Creatinine Clr Calc Pharmacy 106.3 ml/min; Globulin 2.1 gm/dl (2.5-4.0); Glucose 136.0 mg/dl (70-99(Fasting)); Potassium 3.2 mmol/L (3.5-5.1); Sodium 138.0 mmol/L (136-145); Total Protein 5.0 gm/dl (6.0-8.3)
[2024-12-11 08:31] VITALS: TEMP 97.9
[2024-12-11] MEDS: POTASSIUM CHLORIDE CRTAB 20 MEQ TABCR PO STA (09:43)
--- NOTE | 2024-12-11 11:19 | Discharge Summary ---
Discharge Summary Date of Service December 11, 2024 Principal Dx & Hospital Course #1 = Principal Diagnosis (1) Alcohol intoxication: The patient was intoxicated on arrival. He was treated while hospitalized with Librium and IV fluids along with vitamin supplementation. Supportive care (2) Hypomagnesemia: Corrected with parenteral replacement (3) Hyponatremia: Mild on admission. Now improved. Serial labs (4) Chronic pancreatitis: Currently stable. No intervention necessary at this time (5) Hypokalemia: Oral replacement ordered Plan Home today, December 11 , on Librium tapering dose. Alcohol intake cessation was highly recommended to the patient. Follow-up with PCP as soon as possible Admission HPI Per Admitting Provider 54-year-old male PMHx alcohol abuse, neurogenic claudication, spinal stenosis, HERMANN, depression and anxiety, and prior hypomagnesemia presenting for concerns of alcohol withdrawal. He reports increased weakness and inability to tolerate oral intake for approximately 1 week. History of withdrawal seizures in the past. Reports that he came to the hospital today because he has been unable to eat for the past week. He has continued to drink daily though. He drinks 10-12 cans of hard seltzers per day. 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 Denies abdominal pain. Feels hungry but has not ate. Denies falls or syncope, some weakness but believes it is related to not eating. He has a history of WD seizures in the past, one time, "years ago." Chills x 1 week, no fevers. Denies CP, palpitations, SOB, numbness/tingling, LUTS, URI symptoms, syncope, or falls. Feels slightly anxious at present, but the ED ativan helped calm him some. No trembling or shaking. ED evaluation reveals CBC without leukocytosis, H&H 12.5/34.6; CMP sodium 131, chloride 96, CO2 18, AG 17, glucose 117,; magnesium 1.5; AST 41; lipase 5; UA negative for infection; drug screen negative; alcohol 302.3; EKG NSR, low voltage QRS at 93 bpm.; Was provided with thiamine 500 mg IV, folic acid 1 mg IV, lorazepam 1 mg IV, mag sulfate 2g IV, pantoprazole 40 mg IV, and 2L NSS in ED. Please see Dr. Morales's attestation for adjustments/additions to treatment plan. Discharge Exam General-alert and oriented x3, no fever, no chills HEENT-head atraumatic and normocephalic, pupils equal and reactive to light, extraocular muscles intact Neck-no lymphadenopathy or thyromegaly, trachea midline Chest-clear to auscultation. No rales, wheezing or rhonchi Cardiac-regular rate and rhythm, normal S1 and S2 Abdomen-normal bowel sounds, no hepatosplenomegaly Extremities-no cyanosis, clubbing, or edema Neuro-cranial nerves II through XII intact, motor and sensory function within normal limits, strength symmetrical, no focal deficits Psych-normal affect, normal mood Discharge Plan Discharge Items Patient Disposition: Home - Self-Care Reason For Visit: ALCOHOL WD, HYPOMAG Discharge Diagnosis: Alcohol intoxication, hypomagnesemia, hyponatremia, hypokalemia Condition on Discharge: Good Activity: Resume your previous activity Non-emergency contact: Primary Care Provider Call non-emergency contact if: your symptoms worsen Follow-up/Referrals: Kvng Mcghee III, CRNP [Primary Care Provider] - Diet: Regular Addtl Attending Provider Instructions: Continued alcohol consumption is highly discouraged. Take Librium and a tapering dose fashion as directed. A prescription has been sent to your [facility] pharmacy. Continue multivitamin daily Pending Studies at Discharge: No Stand-Alone Forms: [facility], Smoking Cessation Medications and DC Order Prescriptions: New chlordiazepoxide HCl 10 mg Capsule See Rx Instructions .ROUTE .COMPLEX Qty: 12 0RF Rx Instructions: 10 mg orally 3 times a day for 2 days, then 10 mg twice a day for 2 days, then 10 mg once a day for 2 days, then stop Continued folic acid 1 mg tablet 1 mg PO DAILY Qty: 90 3RF Rx Instructions: TAKE 1 TAB ORALLY DAILY IN THE MORNING metoprolol succinate 25 mg tablet extended release 24 hr 25 mg PO QAM Qty: 90 3RF Hold Instructions: Provider's Order: patient reports this is on hold per his primary magnesium oxide 400 mg magnesium capsule 400 mg PO DAILY Qty: 90 3RF Hold Instructions: Resume on 10/22/23. HOLD UNTIL PROVIDER AT [facility] THINKS IT IS APPROPRIATE TO RESUME Rx Instructions: 800 MG X 2 WEEKS, THEN 400 MG DAILY pantoprazole 40 mg tablet,delayed release (DR/EC) 40 mg PO BID Qty: 180 1RF lorazepam 1 mg tablet 1 mg PO BID PRN (Reason: anxiety) Qty: 60 1RF naltrexone 50 mg tablet 100 mg PO DAILY Qty: 180 3RF Rx Instructions: No longer taking per patient Creon 36,000-114,000- 180,000 unit capsule,delayed release(DR/EC) 1 cap PO TIDM Qty: 90 5RF trazodone 50 mg tablet See Rx Instructions .ROUTE .COMPLEX Qty: 90 2RF Hold Instructions: Resume on 10/22/23. HOLD UNTIL PROVIDER AT [facility] THINKS IT IS APPROPRIATE TO RESUME Dose Instruction: TAKE 1 TABLET BY MOUTH AT BEDTIME Rx Instructions: TAKE 1 TABLET BY MOUTH AT BEDTIME buspirone 10 mg tablet 20 mg PO TID 30 Days Qty: 180 1RF melatonin 10 mg capsule 40 mg PO HS PRN (Reason: Sleep) thiamine HCl (vitamin B1) 100 mg tablet 100 mg PO QAM multivitamin Tablet 1 tab PO DAILY acetaminophen 325 mg Tablet 650 mg PO Q8H PRN (Reason: fever or pain) Qty: 30 0RF fluoxetine 20 mg Capsule 60 mg PO DAILY Qty: 30 0RF Discharge Orders: Discharge Order (Routine); Ordered 12/11/24 Ordered By: Udya Arteaga Admission Data Admit Date/Time: 12/09/24 23:42 Attending Provider: Uday Arteaga Admit Provider: Norma Morales Primary Care Provider: Kvng Mcghee III Other Providers: Norma Morales Hospital Stay Data Consultations 12/09/24 23:39 ED Decision to Admit Stat Pending Results Patient Have Any Pending Studies at Discharge: No Discharge Instructions Given to Patient (Per Discharging Provider) Continued alcohol consumption is highly discouraged. Take Librium and a tapering dose fashion as directed. A prescription has been sent to your [facility] pharmacy. Continue multivitamin daily Total Time Total Time Spent Total Time Spent (In Minutes): 45 minutes Coding Level of Care Code 94995 INP/OBS DISCH >30 MIN Diagnoses Alcohol intoxication F10.929 Hypomagnesemia E83.42 Hyponatremia E87.1 Chronic pancreatitis K86.1 Hypokalemia E87.6
[2024-12-11 15:09] VITALS: BP 106/72; PULSE 75; O2SAT 97
== END 2024-12-11 17:02 | disposition home or self-care (01) | DRG 897 ==
LOC: ED 19:06 → 2S 23:42 → SUATTDRO 23:42 → 2S 12-10 00:23
DX: K92.2 Gastrointestinal hemorrhage, unspecified; I10 Essential (primary) hypertension; F32.A Depression, unspecified; F10.239 Alcohol dependence with withdrawal, unspecified; E87.1 Hypo-osmolality and hyponatremia; F41.9 Anxiety disorder, unspecified; K86.0 Alcohol-induced chronic pancreatitis; E83.42 Hypomagnesemia; F10.221 Alcohol dependence with intoxication delirium; E86.0 Dehydration; F17.210 Nicotine dependence, cigarettes, uncomplicated; G47.00 Insomnia, unspecified; D64.9 Anemia, unspecified; K21.9 Gastro-esophageal reflux disease without esophagitis